=== PATIENT | female | born 1965 | race Caucasian/White ===

== ENCOUNTER 2023-01-16 06:35 | Outpatient (REF) | payer OTHER, SELFPAY ==
[2023-01-16 06:42] LABS: MANUAL DIFF FLAG NO
[2023-01-16 07:05] LABS: Basophils Absolute Auto 0.1 X10*3/uL (0.0-0.2); Basophils Percent Auto 0.8 % (0-2); Eosinophils Absolute Auto 0.4 X10*3/uL (0.0-0.4); Eosinophils Percent Auto 3.8 % (0-4); Hematocrit 38.9 % (37.0-47.0); Hemoglobin 13.2 g/dl (12.0-16.0); Imm Gran Abs Auto 0.04 X10*3/uL (0.00-0.03); Imm Gran Pct Auto 0.4 % (0.0-0.4); Lymphocytes Absolute Auto 3.1 X10*3/uL (1.2-4.9); Lymphocytes Percent Auto 30.5 % (20-40); Mean Corpuscular HGB Conc 33.9 g/dl (31.0-35.0); Mean Corpuscular Hemoglobin 31.1 pg (27.0-33.0); Mean Corpuscular Volume 91.7 fL (80.0-98.0); Monocytes Absolute Auto 0.6 X10*3/uL (0.1-1.2); Monocytes Percent Auto 5.7 % (2-11); Neutrophils Percent Auto 58.8 % (45-73); Platelet Count 500 X10*3/uL (160-400); Red Blood Count 4.24 X10*6/uL (4.20-5.50); Red Cell Distribution Width 13.8 % (11.0-16.0); White Blood Count 10.1 X10*3/uL (4.8-10.8)
[2023-01-16 07:42] LABS: Alanine Aminotransferase 41 U/L (0-31); Alkaline Phosphatase 75 U/L (39-117); Anion Gap 14 (12-20); Aspartate Amino Transferase 28 U/L (5-31); Blood Urea Nitrogen 11 mg/dL (9-16); Calcium 9.6 mg/dL (8.4-10.2); Carbon Dioxide 23 mmol/L (22-29); Chloride 101 mmol/L (96-108); Estimated Glomerular Filt Rate > 60; Glucose Random 149 mg/dL (60-115); Potassium 3.9 mmol/L (3.3-5.1); Sodium 134 mmol/L (135-145); Total Protein 7.2 g/dL (6.5-8.0)
[2023-01-16 08:00] LABS: Bilirubin Total 0.4 mg/dL (0.0-1.0)
== END 2023-01-16 06:36 | disposition home or self-care (01) ==
LOC: HO.MMNH1L 06:35
PROVIDERS: Visit Provider Family Medicine
DX: Z02.2 Encounter for examination for admission to residential institution (principal); E11.9 Type 2 diabetes mellitus without complications
CPT/HCPCS: 36415; 80053; 85025

== ENCOUNTER 2023-01-23 07:25 | Outpatient (REF) | payer OTHER, SELFPAY ==
[2023-01-23 06:08] LABS: MANUAL DIFF FLAG NO
[2023-01-23 06:58] LABS: Basophils Absolute Auto 0.1 X10*3/uL (0.0-0.2); Basophils Percent Auto 0.6 % (0-2); Eosinophils Absolute Auto 0.4 X10*3/uL (0.0-0.4); Eosinophils Percent Auto 3.1 % (0-4); Hematocrit 41.2 % (37.0-47.0); Imm Gran Abs Auto 0.03 X10*3/uL (0.00-0.03); Imm Gran Pct Auto 0.3 % (0.0-0.4); Lymphocytes Absolute Auto 3.9 X10*3/uL (1.2-4.9); Lymphocytes Percent Auto 34.3 % (20-40); Mean Corpuscular Hemoglobin 31.2 pg (27.0-33.0); Mean Corpuscular Volume 91.8 fL (80.0-98.0); Mean Platelet Volume 8.9 fL (9.4-12.3); Monocytes Absolute Auto 0.6 X10*3/uL (0.1-1.2); Monocytes Percent Auto 4.8 % (2-11); Neutrophils Absolute Auto 6.5 x10*3/uL (2.0-8.3); Neutrophils Percent Auto 56.9 % (45-73); Platelet Count 560 X10*3/uL (160-400); Red Blood Count 4.49 X10*6/uL (4.20-5.50); Red Cell Distribution Width 13.2 % (11.0-16.0); White Blood Count 11.4 X10*3/uL (4.8-10.8)
[2023-01-23 07:25] LABS: Anion Gap 16 (12-20); Blood Urea Nitrogen 9 mg/dL (9-16); Calcium 10.1 mg/dL (8.4-10.2); Carbon Dioxide 25 mmol/L (22-29); Chloride 98 mmol/L (96-108); Estimated Glomerular Filt Rate > 60; Glucose Random 156 mg/dL (60-115); Potassium 4.2 mmol/L (3.3-5.1); Sodium 135 mmol/L (135-145)
== END 2023-01-23 07:26 | disposition home or self-care (01) ==
LOC: HO.MMNH1L 07:25
PROVIDERS: Visit Provider Family Medicine
DX: Z02.2 Encounter for examination for admission to residential institution (principal); E11.9 Type 2 diabetes mellitus without complications; R26.81 Unsteadiness on feet
CPT/HCPCS: 36415; 80048; 85025

== ENCOUNTER 2023-01-30 07:17 | Outpatient (REF) | payer OTHER, SELFPAY ==
[2023-01-30 06:04] LABS: MANUAL DIFF FLAG NO
[2023-01-30 06:25] LABS: Basophils Absolute Auto 0.1 X10*3/uL (0.0-0.2); Basophils Percent Auto 0.6 % (0-2); Eosinophils Absolute Auto 0.4 X10*3/uL (0.0-0.4); Eosinophils Percent Auto 4.3 % (0-4); Hematocrit 36.9 % (37.0-47.0); Hemoglobin 12.4 g/dl (12.0-16.0); Imm Gran Abs Auto 0.04 X10*3/uL (0.00-0.03); Imm Gran Pct Auto 0.4 % (0.0-0.4); Lymphocytes Absolute Auto 2.5 X10*3/uL (1.2-4.9); Lymphocytes Percent Auto 27.2 % (20-40); Mean Corpuscular HGB Conc 33.6 g/dl (31.0-35.0); Mean Corpuscular Hemoglobin 30.8 pg (27.0-33.0); Mean Corpuscular Volume 91.6 fL (80.0-98.0); Monocytes Absolute Auto 0.6 X10*3/uL (0.1-1.2); Monocytes Percent Auto 6.8 % (2-11); Neutrophils Absolute Auto 5.6 x10*3/uL (2.0-8.3); Neutrophils Percent Auto 60.7 % (45-73); Platelet Count 479 X10*3/uL (160-400); Red Blood Count 4.03 X10*6/uL (4.20-5.50); Red Cell Distribution Width 12.9 % (11.0-16.0); White Blood Count 9.3 X10*3/uL (4.8-10.8)
[2023-01-30 07:04] LABS: Anion Gap 16 (12-20); Blood Urea Nitrogen 7 mg/dL (9-16); Calcium 9.5 mg/dL (8.4-10.2); Carbon Dioxide 23 mmol/L (22-29); Chloride 103 mmol/L (96-108); Estimated Glomerular Filt Rate > 60; Glucose Random 133 mg/dL (60-115); Sodium 138 mmol/L (135-145)
== END 2023-01-30 07:18 | disposition home or self-care (01) ==
LOC: HO.MMNH1L 07:17
PROVIDERS: Visit Provider Family Medicine
DX: Z02.2 Encounter for examination for admission to residential institution (principal); E11.9 Type 2 diabetes mellitus without complications
CPT/HCPCS: 36415; 80048; 85025

== ENCOUNTER 2023-02-06 06:28 | Outpatient (REF) | payer OTHER, SELFPAY ==
[2023-02-06 06:03] LABS: MANUAL DIFF FLAG NO
[2023-02-06 06:54] LABS: Basophils Absolute Auto 0.1 X10*3/uL (0.0-0.2); Basophils Percent Auto 0.5 % (0-2); Eosinophils Absolute Auto 0.3 X10*3/uL (0.0-0.4); Eosinophils Percent Auto 2.5 % (0-4); Hematocrit 36.4 % (37.0-47.0); Hemoglobin 12.5 g/dl (12.0-16.0); Imm Gran Abs Auto 0.06 X10*3/uL (0.00-0.03); Imm Gran Pct Auto 0.5 % (0.0-0.4); Lymphocytes Absolute Auto 3.8 X10*3/uL (1.2-4.9); Lymphocytes Percent Auto 32.5 % (20-40); Mean Corpuscular HGB Conc 34.3 g/dl (31.0-35.0); Mean Corpuscular Hemoglobin 30.7 pg (27.0-33.0); Mean Corpuscular Volume 89.4 fL (80.0-98.0); Mean Platelet Volume 8.9 fL (9.4-12.3); Monocytes Absolute Auto 0.6 X10*3/uL (0.1-1.2); Monocytes Percent Auto 5.3 % (2-11); Neutrophils Percent Auto 58.7 % (45-73); Platelet Count 428 X10*3/uL (160-400); Red Blood Count 4.07 X10*6/uL (4.20-5.50); Red Cell Distribution Width 12.6 % (11.0-16.0); White Blood Count 11.8 X10*3/uL (4.8-10.8)
[2023-02-06 07:10] LABS: Anion Gap 16 (12-20); Blood Urea Nitrogen 5 mg/dL (9-16); Calcium 9.4 mg/dL (8.4-10.2); Carbon Dioxide 21 mmol/L (22-29); Chloride 99 mmol/L (96-108); Estimated Glomerular Filt Rate > 60; Glucose Random 116 mg/dL (60-115); Potassium 3.3 mmol/L (3.3-5.1); Sodium 133 mmol/L (135-145)
== END 2023-02-06 06:29 | disposition home or self-care (01) ==
LOC: HO.MMNH1L 06:28
PROVIDERS: Visit Provider Family Medicine
DX: Z00.00 Encounter for general adult medical examination without abnormal findings (principal); E11.9 Type 2 diabetes mellitus without complications; R26.81 Unsteadiness on feet
CPT/HCPCS: 36415; 80048; 85025

== ENCOUNTER 2023-02-09 23:30 | Emergency (ER) | payer OTHER, SELFPAY ==
--- NOTE | ~2023-02-09 | US_ITS ---
EXAMINATION: US VENOUS ULTRASOUND WITH DOPPLER LOWER EXTREMITY, BILATERAL CLINICAL INFORMATION: Pain COMPARISON: None available. TECHNIQUE: Ultrasound of the deep veins is performed from the hip to the calf with compression sonography and color and pulse Doppler assessment. Spectral analysis with color-flow imaging is performed. FINDINGS: RIGHT: There is normal venous compression and respiratory variation and augmented flow. The visualized common femoral vein, superficial femoral vein, profunda femoral vein, popliteal vein, and the trifurcation region shows no evidence of deep venous thrombosis. There is no significant popliteal fossa cyst. LEFT: There is normal venous compression and respiratory variation and augmented flow. The visualized common femoral vein, superficial femoral vein, profunda femoral vein, popliteal vein, and the trifurcation region shows no evidence of deep venous thrombosis. There is no significant popliteal fossa cyst. If the patient's symptoms persist, followup ultrasound in 5 days 7 days might be of value to exclude proximal propagation from a non-visualized calf vein. US/US venous duplex LE BI IMPRESSION: No DVT demonstrated in the bilateral lower extremities
--- NOTE | ~2023-02-09 | CT_ITS ---
EXAMINATION: CT HEAD WITHOUT CONTRAST CLINICAL INFORMATION: Leg numbness COMPARISON: None available. TECHNIQUE: Contiguous axial imaging was performed from the skull base to vertex without intravenous administration of contrast. This CT examination was performed using dose optimization techniques as appropriate, variously including the following: *Automated exposure control *Adjustment of mA and/or kV according to patient size (this includes techniques or standardized protocols for targeted exams where dose is matched to indication/reason for exam; i.e. extremities or head) *Use of iterative reconstruction technique DLP: 704 mGy-cm FINDINGS: There is no evidence of acute intracranial hemorrhage or territorial infarction. No abnormal mass effect or midline shift is seen. Hernandez to white matter differentiation is well preserved. No extra-axial fluid collections are identified. No hydrocephalus. No significant volume loss. Patchy periventricular and deep white matter hypoattenuation is consistent with mild small vessel ischemic changes. Dilated perivascular space, inferior right basal ganglia. Subcentimeter extra-axial partially calcified structure along the right frontal lobe, most compatible with a meningioma. No acute osseous or soft tissue abnormality. The mastoid air cells and visualized portions of the paranasal sinuses are well aerated. CT/CT head/brain wo IV con IMPRESSION: No acute intracranial pathology.
[2023-02-10 00:04] VITALS: BP 117/65; PULSE 82; TEMP 36.6; O2SAT 97
[2023-02-10 00:08] VITALS: BP 117/65; BP 117/86; PULSE 106; RESP 19; O2SAT 95; BMI 35.2
--- NOTE | 2023-02-10 00:34 | ED.GENADULT ---
HPI - General Adult General Chief complaint: General Medical Stated complaint: Shaky legs Time Seen by Provider: 02/09/23 23:51 Source: patient Mode of arrival: EMS Limitations: other (poor historian ) History of Present Illness HPI narrative: 57 yo female currently in rehab she tells me for vertigo - she states she has a PMH of vertigo, anxiety, depression, HTN, DM, GERD - she was taken out of rehab as it was her mom's and when she got back to facility both legs jumping around . Staff called EMS and state they are concerned she either used drugs or alcohol as she has a hx of this. The patient denies ingestion or trauma. She states shes' been sober 1.5 months. No change in medications. She walked a lot today. She took all of her medications. Patient is hyperverbal. She has no hx of restless leg syndrome. MD complaint: moving legs Onset (ago): hour(s) (4) Location: left, right and lower extremity Radiation: non-radiation Severity: moderate Quality: sharp Pain Consistency: intermittent Relieving factors: none Exacerbating factors: none Associated symptoms: denies other symptoms Treatments prior to arrival: none Related Data Allergies Allergy/AdvReac Type Severity Reaction Status Date / Time bee pollen Allergy Anaphylaxis Verified 02/10/23 00:18 Review of Systems Review of Systems: Constitutional : No Fever, No Chills ENT/Mouth : No Ear Pain, No Hoarseness, No sore throat Eyes: No Eye Pain, No Swelling, No Redness, No Foreign Body Cardiovascular : No Chest Pain, No SOB Respiratory : No Cough, No Dyspnea Gastrointestinal : No Nausea, No Vomiting, No Diarrhea, No abdominal Pain Genitourinary : No Dysuria, No Hematuria Musculoskeletal : positive joint pain,pos Myalgias, No Joint Swelling Skin : No Skin lacerations, No rash Neuro : No Weakness, No Numbness, No Loss of Consciousness, No Dizziness, No Headache Psych : No Anxiety/Panic, No Depression Heme/Lymph: no easy bruising, no Lymphadenopathy Endocrine : No Polyuria, No Polydipsia All other systems reviewed and are negative [facility] Past Medical History Source: old records reviewed Medical History Vertigo Diabetes HTN (hypertension) GERD (gastroesophageal reflux disease) Social History Social History Smoked in Last 30 Days: No Use of substances other than those prescribed or required for medical reasons: No Advance Directives: No Advance Directives Information Provided: Yes Patient : No Physical Exam ED Vital Signs: Vital Signs - 24 hr 02/10/23 00:04 02/10/23 00:08 Temperature 97.8 F Pulse Rate 82 106 H Respiratory Rate 19 Blood Pressure 117/65 117/65 Pulse Oximetry 97 95 Oxygen Delivery Method Room Air Room Air BMI result Body Mass Index 35.2 Appearance: Alert. Oriented X3. No acute distress. Hyperverbal Eyes: Pupils equal, round and reactive to light. ENT: Pharynx normal. Neck: Normal inspection. Neck supple. CVS: Normal heart rate and rhythm. Pulses normal. Respiratory: No respiratory distress. Breath sounds normal. Abdomen: Soft and nontender. Skin: Skin warm and dry. Normal skin color. Normal skin turgor. Extremities: 1+ lower extremity edema. No calf ttp intermittent legs twitch and turn inside occurs every minute or so simultaneously Neuro: Oriented X 3. No motor deficit. No sensory deficit. SILT intact, no clonus Course Course Course Narrative: shaking of the legs has stopped since one dose of PO ativan Medications Administered Discontinued Medications Generic Name Dose Route Start Last Admin Trade Name Arsenq PRN Reason Stop Dose Admin Lorazepam 1 mg 02/10/23 02:17 02/10/23 02:41 Lorazepam 1 Mg Tablet PO 02/10/23 02:18 1 mg ONCE ONE Administration Medical Decision Making Medical Decision Making [facility] Narrative: 57 yo female currently in rehab she tells me for vertigo - she states she has a PMH of vertigo, anxiety, depression, HTN, DM, GERD her with abnormal movements of both LE - intermittent, NV Intact, no clonus seems atypical for seizures at this time basic labs, tox screen and US for DVT given reported new swelling. Will also request records from [facility] Differential Diagnosis Differential Diagnoses: The differential diagnosis associated with the presentation includes RLS, ingestion, lyte abnormality, DVT Admission/Observation Consideration of admission/observation: Escalation of care including admission/observation considered work up negative and symptoms of legs stopped after PO ativan Lab Data [facility] Lab Attestation statement: I reviewed the patient's lab results. 02/10/23 00:44 02/10/23 00:44 Labs: Lab Results 02/10/23 02/10/23 02/10/23 Range/Units 00:44 01:07 01:58 WBC 13.3 H (4.8-10.8) X10*3/uL RBC 4.01 L (4.20-5.50) X10*6/uL Hgb 12.3 (12.0-16.0) g/dl Hct 35.3 L (37.0-47.0) % MCV 88.0 (80.0-98.0) fL MCH 30.7 (27.0-33.0) pg MCHC 34.8 (31.0-35.0) g/dl RDW 12.8 (11.0-16.0) % Plt Count 442 H (160-400) X10*3/uL MPV 8.2 L (9.4-12.3) fL Immature Gran % (Auto) 0.3 (0.0-0.4) % Neut % (Auto) 60.4 (45-73) % Lymph % (Auto) 30.3 (20-40) % Alpine % (Auto) 5.5 (2-11) % Eos % (Auto) 3.0 (0-4) % Baso % (Auto) 0.5 (0-2) % Lymph # (Auto) 4.0 (1.2-4.9) X10*3/uL Alpine # (Auto) 0.7 (0.1-1.2) X10*3/uL Eos # (Auto) 0.4 (0.0-0.4) X10*3/uL Baso # (Auto) 0.1 (0.0-0.2) X10*3/uL Abs Immat Gran (auto) 0.04 H (0.00-0.03) X10*3/uL Absolute Neuts (auto) 8.0 (2.0-8.3) x10*3/uL Absolute Nucleated RBC 0.000 (0.0-0.012) X10*3/uL Nucleated RBC % (auto) 0.0 (0.0-0.2) /100WBC PT 10.9 L (11.1-13.3) SEC INR 0.9 (0.9-1.1) Sodium 137 (135-145) mmol/L Potassium 3.5 (3.3-5.1) mmol/L Chloride 104 (96-108) mmol/L Carbon Dioxide 24 (22-29) mmol/L Anion Gap 13 (12-20) BUN 6 L (9-16) mg/dL Creatinine 0.68 (0.5-1.4) mg/dL Estim Creat Clear Calc 89.9 Estimated GFR > 60 Random Glucose 105 (60-115) mg/dL Calcium 9.4 (8.4-10.2) mg/dL Magnesium 1.9 (1.6-2.6) mg/dL Total Bilirubin 0.3 (0.0-1.0) mg/dL Direct Bilirubin 0.2 (0.0-0.5) mg/dL AST 28 (5-31) U/L ALT 34 H (0-31) U/L Alkaline Phosphatase 79 (39-117) U/L Total Creatine Kinase 170 H (26-140) U/L B-Natriuretic Peptide 15 (<100) pg/mL Total Protein 6.8 (6.5-8.0) g/dL Albumin 3.8 (3.5-5.0) g/dL TSH 2.22 (0.32-4.0) uIU/mL Urine Color Yellow Urine Appearance Clear Urine pH 5.5 (5.0-9.0) Ur Specific Vernon 1.010 (1.005-1.025) Urine Protein Negative (Neg-Trace) mg/dL Urine Glucose (UA) Negative (Negative) mg/dL Urine Ketones Negative (Negative) mg/dL Urine Blood Negative (Negative) Urine Nitrite Negative (Negative) Ur Leukocyte Esterase Trace H (Negative) Urine RBC 0-2 (0-2) /HPF Urine WBC 0-5 (0-5) /HPF Ur Squamous Epith Cells 3-5 (0-2) /HPF Urine Bacteria None Seen (None Seen) Hyaline Casts 0-2 (0-2) /LPF Urine Opiates Screen Not Detected (Not Detect) Urine Fentanyl Screen Not Detected (Not Detect) Ur Barbiturates Screen Not Detected (Not Detect) Ur Phencyclidine Scrn Not Detected (Not Detect) Ur Amphetamines Screen Not Detected (Not Detect) U Benzodiazepines Scrn Not Detected (Not Detect) Urine Cocaine Screen Not Detected (Not Detect) U Marijuana (THC) Screen Not Detected (Not Detect) Ethyl Alcohol < 10 mg/dL Influenza Type A (PCR) NEGATIVE (Negative) Influenza Type B (PCR) NEGATIVE (Negative) RSV RNA Qual (PCR) NEGATIVE (Negative) SARS-CoV-2 RNA (RT-PCR) NEGATIVE (Negative) Independent Interpretation I performed an independent interpretation of an: Ultrasound (no DVT) and CT Scan (normal ) Radiology Impression Discussion of test interpretation with radiology: I have reviewed the radiologist's reading. Independent Historian Clinical information obtained from an independent historian. History obtained from or confirmed by: EMS External Record Review External record reviewed: Outpatient record Discharge Plan Discharge Clinical Impression: Abnormal leg movement Patient Disposition: Home, Self-Care Instructions: Leg Pain (ED) Additional Instructions: labs, urine, drug screen, thyroid testing, head CT, DVT study, COVID/flu/PCR all negative, negative alcohol level all movements stopped after oral dose of ativan please follow up with her doctor or neurologist as needed. could be restless leg would be atypical for seizures
--- OUTSIDE RECORDS SUMMARY | 2023-02-10 00:37 | XMS_ITS | Continuity of Care Document ---
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 Refills 3, Maintenance, anxiety, 10/07/15 10:32:24, Print Requisition Start Date: 10/07/15 Status: Ordered Atarax Tablet = 20 mg, By Mouth, 4 times a day, PRN as needed for anxiety, Last filled 09/24/2019, 0 Refills, Maintenance, 10/28/19 11:47:00 EDT, Tablet Start Date: 10/28/19 Stop Date: 11/27/19 Status: Ordered docusate sodium 100 mg oral capsule 100 mg, 1, capsule, By Mouth, 2 times a day, Please take until first bowel movement, then can take only if you have constipation., # 60 capsule, Refills 0, Tot. Refills 0, Maintenance, 05/10/17 14:06:33, Print Requisition Start Date: 05/10/17 Status: Ordered glipiZIDE 10 mg oral tablet 1 tablet = 10 mg, By Mouth, 2 times a day, Last filled 06/27/2019, # 180 tablet, 0 Refills, Maintenance, 10/28/19 11:50:00 EDT, Tablet Start Date: 10/28/19 Stop Date: 01/26/20 Status: Ordered Januvia 100 mg oral tablet 1 tablet = 100 mg, By Mouth, Daily, Last filled 06/27/2019, # 90 tablet, 0 Refills, Maintenance, 10/28/19 11:49:00 EDT, Tablet Start Date: 10/28/19 Stop Date: 01/26/20 Status: Ordered Melatonin 5 mg oral tablet 1 tablet = 5 mg, By Mouth, Daily at bedtime, PRN for insomnia, # 30 tablet, 3 Refills, Maintenance,10/07/15 10:34:27, Tablet Start Date: 10/07/15 Status: Ordered metFORMIN 500 mg oral tablet, extended release 2 tablet = 1,000 mg, By Mouth, 2 times a day, Last filled 07/23/2019, # 90 tablet, 0 Refills, Maintenance, 10/28/19 11:48:00 EDT, ER Tablet Start Date: 10/28/19 Stop Date: 01/26/20 Status: Ordered ondansetron 4 mg oral tablet See Instructions, PRN as needed for nausea/vomiting, 1-2 tablet By Mouth Every 8 hours, # 10 tablet, 0 Refills, Maintenance, 08/18/17 22:26:46 EDT, Tablet Start Date: 08/18/17 Status: Ordered pravastatin 40 mg oral tablet 1 tablet = 40 mg, By Mouth, Daily, Last filled June 27, 2019, # 90 tablet, 0 Refills, Maintenance, 10/28/19 11:49:00 EDT, Tablet Start Date: 10/28/19 Stop Date: 01/26/20 Status: Ordered ProAir HFA 90 mcg/inh inhalation aerosol with adapter 2 puffs, Inhalation, 4 times a day, PRN for wheezing, # 8.5 Gm, 0 Refills, Maintenance, Aerosol Start Date: 11/08/12 Status: Ordered Provera 10 mg oral tablet 10 mg, 1, tablet, By Mouth, Daily, # 10 tablet, Refills 0, Tot. Refills 0, Maintenance, 09/09/15 16:30:06, Route to Pharmacy Electronically, [id number], [id number] Start Date: 09/09/15 Stop Date: 09/19/15 Status: Ordered Reglan 10 mg oral tablet 1 tablet = 10 mg, By Mouth, 4 times a day, # 120 tablet, 0 Refills, Maintenance, 05/03/17 10:54:02,Tablet Start Date: 05/03/17 Status: Ordered Problem List Condition Effective Dates Status Health Status Inform ant Anxiety(Confirmed) Active Anxiety disorder(Confirmed) Active Chronic chest pain(Confirmed) Active Panic disorder without agora phobia with severe panic attacks(Confirmed) Active 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(Confirmed) Active Vital Signs Most recent to oldest [Reference Range]: 1 Height 155 cm (10/28/19 11:07 AM) Weight 84.5 kg (10/28/19 11:07 AM) Oxygen Saturation [94-100 %] 98 % (10/28/19 11:07 AM) Pulse Rate [55-90 bpm] 110 bpm *H* (10/28/19 11:07 AM) Blood Pressure [90-138/55-84 mm Hg] 110/ 73mm Hg (10/28/19 11:07 AM) Respiratory Rate [16-30 br/min] 16 br/mi n (10/28/19 11:07 AM) Temperature [96.8-100.4 DegF] 98.1 DegF (10/28/19 11:07 AM) Mode of Delivery (Oxygen) Room air (10/28/19 11:07 AM) Blood pressure sites Arm, right (10/28/19 11:07 AM) Temperature Route Oral (10/28/19 11:07 AM) Dry Weight 84.5 kg (10/28/19 11:07 AM) Weight Obtained Via Patient/family state d (10/28/19 11:07 AM) Dry Weight Obtained Via Patient/family s tated (10/28/19 11:07 AM) Social History Social History Type Response Smoking Status Current every day jinny marmolejo; Type: Cigarettes entered on: 05/03/17 Sex
--- OUTSIDE RECORDS SUMMARY | 2023-02-10 00:37 | XMS_ITS | Continuity of Care Document ---
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 painful lymph nodes. Skin:??No rash or itching. Endocrine:??No reports of sweating. No cold or heat intolerance. No polyuria or polydipsia. Psychiatric:??No depression or anxiety. Objective Vital Signs?? Temperature: 97.7 DegF (01/03/23:24:00) Temperature Route: Oral (01/03/23:24:00) Pulse Rate:??103 bpm??High (01/03/23:26:00) Respiratory Rate: 19 br/min (01/03/23::) Systolic Blood Pressure:??162 mm Hg??High (01/03/23::) Diastolic Blood Pressure: 81 mm Hg (01/03/23:26:00) Blood pressure sites: Arm, left (01/03/23 23:26:00) Mean Arterial Pressure: 125 mm Hg (01/03/23:24:00) Pulse Pressure: 81 mm Hg (01/03/23 23:26:00) Oxygen Saturation: 97 % (01/03/23:26:00) Mode of Delivery (Oxygen): Room air (01/03/23 23:26:00) Early Warning Score: 3 (01/03/23 23:35:25) ? Intake/Output? No Data Available ?? NIH Stroke Scale Level of Consciousness for Stroke Scale: Alert (01/03/23 21:30:00) Response Month/Age: Answers both questions correctly (01/03/23:30:00) Response Open/Close Eyes: Performs both tasks correctly (01/03/23:30:00) Best Gaze: Normal (01/03/23:30:00) Visual: No visual loss (01/03/23:30:00) Facial Palsy: Normal symmetrical movements (01/03/23 21:30:00) Motor Function Left Arm: No drift (01/03/23:30:00) Motor Function Right Arm: No drift (01/03/23:) Motor Function Left Leg: No drift (01/03/23:) Motor Function Right Leg: No drift (01/03/23:) Limb Ataxia: Absent (01/03/23:) Sensory: Normal; no sensory loss (01/03/2330:) Best Language: No aphasia (01/03/23:) Dysarthria NIH Stroke Scale: Normal (01/03/23) Extinction and Inattention: No abnormality (01/03/23:) NIH Stroke Scale Score: 0 (01/03/23:) ? Physical Exam Constitutional: Alert, in no distress. Mental Status: Oriented to person, place and time. Head: Normocephalic. Eyes: Pupils are equal, round and reactive to light. Extraocular muscles intact. Ear, Nose and Throat: Oropharynx clear, mucous membranes moist. Ears and nose without masses, lesions or deformities. Trachea midline. Neck: Supple, Full range of motion. Respiratory: Clear to auscultation. No wheezing, rales or rhonchi. Cardiovascular: S1 S2 regular. No murmurs, rubs or gallops. Gastrointestinal: Abdomen soft, non-tender, non-distended. Normal bowel sounds. No pulsatile mass.?? Genitourinary: No costovertebral angle tenderness. Neurologic: Cranial nerves II-XII grossly intact. No focal neurological deficits. Flexor plantar response. Moves all extremities spontaneously. Sensation intact bilaterally. Skin: No rashes or lesions. No petechiae or purpura.?? Musculoskeletal: No cyanosis or clubbing. No gross deformities. Normal range of motion. Heme/Lymphatics/Immun: Palpation of neck reveals no swelling or tenderness of neck nodes.?? Psychiatric: Normal mood and affect Assessment/Plan Assessment:??The patient is a 57-year-old female with history of anxiety, panic disorder, obesity, DM, and possible ETOH abuse who presented to the ED with complaints of nausea, vomiting, and dizziness. The patient states that she was working with a therapist at home when she began to develop sudden onset dizziness at approximately 2 PM this afternoon. Patient states she felt that her legs are weak at baseline. Patient states she typically ambulates with a walker and has not been able to stand since this afternoon due to the dizziness and feeling of being off balance. Given reports of sudden onset dizziness, the patient was activated as an acute stroke alert. When I am seeing her, the patien t reports dizziness with position changes. She denies headache, speech difficulties, unilateral weakness. chest pain, shortness of breath. ?? In the ED, the patient is afebrile with elevated HR to 115 and SBP up to 177. EKG shows sinus tachycardia of 113, with no acute ischemia. CT head is nonacute. 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 Laboratory data includes WBC 12.8, glucose 136, HS troponin 14. The patient was seen by neurology who recommends admission for CVA rule out. ?? Stroke-like symptom (R29.90):?? Weakness (R53.1):?? Gait instability (R26.81):?? Hyperlipidemia (E78.5):?? CVA (I63.9): 57-year-old female with history of anxiety, panic disorder, obesity, DM, and possible ETOH abuse who presented to the ED with complaints of nausea, vomiting, and dizziness.?? In the ED, the patient is afebrile with elevated HR to 115 and SBP up to 177. EKG shows sinus tachycardia of 113, with no acute ischemia. CT head is nonacute. 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 Laboratory data includes WBC 12.8, glucose 136, HS troponin 14. The patient was seen by neurology who recommends admission for CVA rule out. -Neurology recommendations appreciated.?? -??Q 4 hour neuro checks. -Telemetry. - MRI of brain w/o??to assess for infarct - ASA 81mg daily - Check thiamine, folate, and B12 - IV thiamine after drawing labs - Check LDL. recommend goal LDL <70 with high dose statin - Check A1C - NPO until passes swallow eval - Permissive hypertension. -Continue atorvastatin. - Provide stroke education - Outpatient goals LDL between 40 &70, A1C <7%, and BP <120/80? Diabetes (E11.9):?? -Hold Trulicity. -Monitor glucose POC before meals and HS. -Cover meals with NAHUM. -Hypoglycemic ER measures. ?? GERD (gastroesophageal reflux disease) (K21.9):?? -Substitute Pantoprazole for omeprazole. ?? Diet:?? Cardiac diabetic. ?? VTE Prophylaxis:?? Heparin SC. ?? Code Status:??Full code, confirmed with patient, ?? Discharge Planning:?? -OMN- pending MRI. ? Histories Allergies Allergies ?(Active and Proposed Allergies Only) Bee Stings? (Severity: Unknown severity, Onset: Unknown) ? Past Medical History/Problem List Active Problems??(6) Anxiety Anxiety disorder Chronic chest pain Obese class I Panic disorder without agoraphobia with severe panic attacks 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 ? Past Surgical History Laparoscopic cholecystectomy: 05/10/17 ? Social History Alcohol Details:??Use: Current. ??Frequency: 1-2 times per week. Substance Abuse Details:??Use: Never. Tobacco Details:??Current every day smoker, Type: Cigarettes. Details:??Current every day smoker ? Psychosocial History ? Family History Sister: Panic disorder without agoraphobia ? Medications Home Medications Albuterol (ProAir HFA 90 mcg/inh inhalation aerosol with adapter)?2?puff(s)?Inhalation?4 times a day?as needed?for wheezing Atorvastatin (atorvastatin 40 mg oral tablet)?1?tab(s)?40?Milligram?By Mouth?Daily Docusate (docusate sodium 100 mg oral capsule)?100?Milligram?1?capsule?By Mouth?2times a day?Please take until first bowel movement, then can take only if you have constipation. dulaglutide (Trulicity Pen 0.75 mg/0.5 mL subcutaneous solution)?0.5?Milliliter?0.75?Milligram?Subcutaneous Injection?Every week Folic Acid (folic acid 1 mg oral tablet)?TAKE 1 TABLET BY MOUTH DAILY Gabapentin (gabapentin 100 mg oral capsule)?200?Milligram?2?capsule?By Mouth?3 times a day MedroxyPROGESTERone (Provera 10 mg oral tablet)?10?Milligram?1?tablet?By Mouth?Daily?for 10?Days Melatonin (Melatonin 5 mg oral tablet)?1?tab(s)?5?Milligram?By Mouth?Daily at bedtime?as needed?for insomnia Omeprazole (omeprazole 40 mg oral enteric coated capsule)?1?capsule?40?Milligram?By Mouth?Daily Ondansetron (ondansetron 4 mg oral tablet)?See Instructions?as needed?as needed for nausea/vomiting?1-2 tablet By Mouth Every 8 hours ? Inpatient Medications Medications (12) Active SCHEDULED: (8) Aspirin 81 mg EC Tablet (Aspirin Tablet) ??81 mg, By Mouth, Daily Atorvastatin 40 mg Tablet (atorvastatin 40 mg oral tablet) ??40 mg, By Mouth, Daily Docusate Sodium 100 mg Capsule (docusate sodium 100 mg oral capsule) ??100 mg 1 capsule, By Mouth, 2 times a day Folic Acid 1 mg Tablet (folic acid 1 mg oral tablet) ??1 mg, By Mouth, Daily Gabapentin 100 mg Capsule (gabapentin 100 mg oral capsule) ??200 mg, By Mouth, 3 times a day Insulin Lispro 100 units/mL Inj (3mL) (Insulin LISPRO Sliding Scale) ??2-10 units, Subcutaneous Injection, Every 6 hours NaCl 0.9% Flush 3ml (NaCL 0.9% Flush) ??3 mL, IV Push, Every 8 hours Pantoprazole 40 mg EC Tablet (pantoprazole 40 mg oral delayed release tablet) ??40 mg, By Mouth, Daily CONTINUOUS: (0) PRN: (4) Acetaminophen 325 mg Tablet (Acetaminophen Tablet) ??650 mg, By Mouth, Every 4 hours Albuterol 90mcg/Inhalation Inhaler HFA (Ventolin 90 mcg Inhaler) ??180 mcg 2 puffs, Inhalation, 4 times a day Melatonin 3 mg Tablet (melatonin 3 mg oral tablet) ??3 mg, By Mouth, Daily at bedtime NaCl 0.9% Flush 3ml (NaCL 0.9% Flush) ??3 mL, IV Push, Every 8 hours ? Results Recent Labs BLOOD COUNT & DIFF WBC 12.8 k/mm3 (High)?? 01/03/2023 21:55 RBC 4.19 m/mm3 (Low)?? 01/03/2023 21:55 Hgb 12.8 Gm/dL ()?? 01/03/2023 21:55 Hct 38.0 % ()?? 01/03/2023 21:55 MCV 90.7 femtoliters ()?? 01/03/2023 21:55 MCH 30.5 pg ()?? 01/03/2023 21:55 MCHC 33.7 g/dL ()?? 01/03/2023 21:55 Platelet Count 415 k/mm3 ()?? 01/03/2023 21:55 RDW-SD 47.0 femtoliters (High)?? 01/03/2023 21:55 MPV 8.8 femtoliters (Low)?? 01/03/2023 21:55 Nucleated RBC (Automated) 0.0 #/100 WBC'S ()?? 01/03/2023 21:55 Abs. NRBC 0.0 k/mm3 ()?? 01/03/2023 21:55 Abs. Neut 6.3 k/mm3 ()?? 01/03/2023 21:55 Abs. Lymph 5.2 k/mm3 (High)?? 01/03/2023 21:55 Abs. Ogle 1.0 k/mm3 (High)?? 01/03/2023 21:55 Abs. Eo 0.2 k/mm3 ()?? 01/03/2023 21:55 Abs. Baso 0.1 k/mm3 ()?? 01/03/2023 21:55 Neut % 49.1 % ()?? 01/03/2023 21:55 Lymph % 40.5 % ()?? 01/03/2023 21:55 Ogle % 7.7 % ()?? 01/03/2023 21:55 Eos % 1.6 % ()?? 01/03/2023 21:55 Baso % 0.7 % ()?? 01/03/2023 21:55 Platelet Estimate ADEQUATE ()?? 01/03/2023 21:55 Imm Gran 0.4 % ()?? 01/03/2023 21:55 Abs. Imm Gran 0.1 k/mm3 ()?? 01/03/2023 21:55 ?? CARDIAC High Sensitivity Troponin (HSTnT) 14 ng/L (High)?? 01/03/2023 21:55 ?? CHEM GENERAL Sodium 138 mmol/L ()?? 01/03/2023 21:55 Potassium 4.1 mmol/L ()?? 01/03/2023 21:55 Chloride 98 mmol/L ()?? 01/03/2023 21:55 Bicarbonate Level 25 mmol/L ()?? 01/03/2023 21:55 Anion Gap 15 ()?? 01/03/2023 21:55 Glucose Level 136 mg/dL (High)?? 01/03/2023 21:55 Glucose, POC 121 mg/dL (High)?? 01/03/2023 21:15 BUN 8 mg/dL ()?? 01/03/2023 21:55 Creatinine-Blood 0.6 mg/dL ()?? 01/03/2023 21:55 Estimated GFR Creatinine 103 ML/MIN/1.73 M2 ()?? 01/03/2023 21:55 Calcium 9.5 mg/dL ()?? 01/03/2023 21:55 Protein, Total 6.4 Gm/dL ()?? 01/03/2023 21:55 Albumin 4.3 Gm/dL ()?? 01/03/2023 21:55 AG Ratio 2.0 ()?? 01/03/2023 21:55 Alkaline Phosphatase 85 units/L ()?? 01/03/2023 21:55 AST (SGOT) 23 units/L ()?? 01/03/2023 21:55 ALT (SGPT) 39 units/L (High)?? 01/03/2023 21:55 Bilirubin, Total 0.3 mg/dL ()?? 01/03/2023 21:55 Vitamin B12 Level 754 pg/mL ()?? 01/03/2023 21:55 Folic Acid Level 29.7 ng/mL ()?? 01/03/2023 21:55 ?? COAG INR 1.0 ()?? 01/03/2023 21:55 Protime (PT) 10.3 seconds ()?? 01/03/2023 21:55 APTT 25.4 seconds ()?? 01/03/2023 21:55 ?? URINE OTHER Est Creatinine Clearance 78.15 mL/min ()?? 01/03/2023 22:42 ? EKG study * Event Display: ECG 12-Lead Authored Date: Please click on pdf link to open report * Event Display: ECG 12-Lead Authored Date: Ventricular Rate: 113 BPM Atrial Rate: 113 BPM P-R Interval: 176 ms QRS Duration: 76 ms Q-T Interval: 324 ms QTC Calculation(Bazett): 444 ms P Brookesmith: 27 degrees R Brookesmith: -18 degrees T Brookesmith: 19 degrees Sinus tachycardia Minimal voltage criteria for LVH, may be normal variant ( R in aVL ) Inferior infarct (cited on or before 28-OCT-2019) Anterolateral infarct (cited on or before 28-OCT-2019) Abnormal ECG When compared with ECG of 28-OCT-2019 11:14, Questionable change in initial forces of Lateral leads ST no longer elevated in Inferior leads Confirmed by CHATA WILLINGHAM MD ([id number]) on 01/04/2023 9:30:10 AM [place]: CHATA WILLINGHAM MD Heart * Event Display: Echocardiogram - Complete Authored Date: [id number] Transthoracic Echocardiography Report (TTE) Patient Demographics Patient Name DONNA HAMPTON Date of Study 01/09/2023 Corporate Gender Female Facility Race Ethnicity Date of 1965 Height: 61.02 inches Age 57 year(s) Weight: 171.96 pounds Accession Number [id number] BSA: 1.77 m2 Room Number [id number] BMI: 32.47 kg/m2 Referring Physician Sara Burris Interpreting Blaise Chambers MD Physician Underwriting Support Manager [facility] Fellow Dawson Faustin MD Indications Syncope. Clinical History Obesity. Diabetes Mellitus. ETOH Study Data Type of Study TTE procedure:Echo Complete-Doppler, Colorflow, M-Mode. Study Date01/09/2023 Start Time: 08:58 AM [place] [facility] [place] Study Status: Echo lab Patient Status: Routine Technical Quality: Technically difficult due to body habitus. Blood Pressure:138/77 mmHg EKG: Sinus tachycardia HR: 107 bpm 2D Measurements LV Diastolic Dimension: 4.76 cm LV Systolic Dimension: 2.9 cm LV Septum Diastolic: 1.11 cm LV PW Diastolic: 1.12 cm AO Root Dimension: 3.6 cm LA ESV (BP):44.52 ml LVOT Stroke Volume: 49.83 ml LA ESV Index: 25 ml/m2 Stroke Volume Index28.15 ml/m2 LVOT: 2.3 cm Cardiac Index:3.01 l/min/m2 Ascending Aorta:2.9 cm Doppler Measurements AV Peak Velocity: 119 cm/s AV Peak Gradient: 5.66 mmHg AV Mean Gradient: 3 mmHg AV VTI:16.5 cm LVOT Peak Velocity: 69.4 cm/s LVOT VTI12 cm AV Area (Continuity):3.02 cm2 Cardiac Anatomy Left Ventricle/Interventricular Septum The left ventricle is poorly visualized. The left ventricle is normal in size. Left ventricular wall thickness is mildly increased. Left ventricular systolic function is low normal. There are no regional wall motion abnormalities. LVEF is visually estimated at 50-55%. Unable to assess diastolic function due to E/A fusion. Left Atrium/Interatrial Septum The left atrium is normal in size. Aortic Valve The aortic valve is poorly visualized. There is no aortic stenosis or significant insufficiency. Mitral Valve The mitral valve is grossly normal. There is no mitral stenosis or regurgitation. Aorta The aortic root size is upper limit of normal. The proximal ascending thoracic aorta is normal in size. Right Ventricle The right ventricle is poorly visualized. The right ventricle is normal in size. Right ventricular systolic function appears preserved. Right Atrium The right atrium is poorly visualized. Pulmonic Valve The pulmonic valve is functionally normal. Tricuspid Valve The tricuspid valve is poorly visualized. There is no significant tricuspid regurgitation. Pumonary Artery The pulmonary artery is not well visualized. Unable to accurately estimate pulmonary artery systolic pressure. Venous Structures The inferior vena cava appears grossly normal. Pericardium/Extracardiac There is an epicardial fat pad present. There is no significant pericardial effusion. Summary The left ventricle is poorly visualized. The left ventricle is normal in size. Left ventricular wall thickness is mildly increased. Left ventricular systolic function is low normal. There are no regional wall motion abnormalities. LVEF is visually estimated at 50-55%. Unable to assess diastolic function due to E/A fusion. The right ventricle is poorly visualized. The right ventricle is normal in size. Right ventricular systolic function appears preserved. Comparison No prior study available for comparison. Signature * Event Display: Echocardiogram - Complete Authored Date: Cardiology * Event Display: Cardiac Rhythm Strips Authored Date: Hospital Progress note * Lucrecia Brooks RN: VERIFY, PERFORM, SIGN Event Display: Progress Note Hospital Authored Date: Patient: DONNA HAMPTON Age: 57 years Sex: Female : 1965 Associated Diagnoses: None Author: Lucrecia Brooks RN Findings Problem Related to Alteration in Neurological : Alteration in Neurological Function/new 01/11/2023 0:00 EST Alteration in Neuro status Related to Acute Stroke (CVA), Other: dizziness, weakness, CVA ruleout Goals & Outcomes, Neurological Lab studies/diagnostic tests within pt specific limits, Pt is safe with transfers & activities, Pt will be hemodynamically stable, Pt will be Neurologically stable, Pt will become pain free with appropriate intervention, Pt will maintain intact skin integrity,Pt will remain free from injury Interventions, Neurological Assess/monitor neurologic status, Assess/monitor VS per unit standards & prn, Call/Report variances in assessments to provider, Collaborate w/ provider to implement appropriate guidelines, Collaborate with Nutrition, Collaborate with provider re: medication regime, Document & Monitor O2 Sats; Administer O2 as ordered, Identify psychosocial issues related to diag nosis/illness, If no bowel movement in 3 days activate bowel regime, [place] alternate means of communication, Keep patient's head & body in good alignment, Maintain HOB at least 30 deg, Maintain normothermia, report temp >101.5 F, Maintain patient safety if unsteady gait, Maintain strict intake & output, Monitor Fluid & Electrolytes, Serum Osmolarity, Monitor for headaches, nausea, vomiting, Monitor speech fluency, aphasia, word finding difficulty, Physical assessment per unitstandards, Provide emotional support to Pt/caregiver, Teach & encourage deep breath & coughexercises, Teach and encourage use of Incentive spirometer, Teach pt/caregiver on plan of care, treatment, s/s & meds, Teach pt/caregiver on use of pain scale Goals/Interventions, Neurological Yes Neurological, Problem Start 01/05/2023 8:45 Reviewed plan with, Neurological Patient Patient Progression, Neurological Pt progressing according to plan . Nursing Data Neurological Data. : Neurological Data. 01/10/2023 21:00 EST Tongue Disposition Midline Neurological Symptoms Altered sensation or tingling, Weakness or loss of muscle strength Level of Consciousness Full Consciousness Orientated to person, place, time Person, Place, Time, Event Facial Symmetry Intact Characteristics of Speech Clear and normal Strength LUE 5-Active movement against gravity & full resistance Strength RUE 5-Active movement against gravity & full resistance Strength LLE 5-Active movement against gravity & full resistance Strength RLE 5-Active movement against gravity & full resistance Tone LUE Normal Tone RUE Normal Tone LLE Normal Tone RLE Normal Sensation LUE Intact, Diminished Sensation RUE Intact, Diminished Sensation LLE Intact, Diminished Sensation RLE Intact, Diminished Movement LUE Spontaneous, To command Movement RUE Spontaneous, To command Movement LLE Spontaneous, To command Movement RLE Spontaneous, To command Gait Steady Response Eye Opening Spontaneously Motor Response-Adult Obeys commands Verbal Response-Adult Oriented and converses [place] Coma Score 15 Neuro WNL except Eyes and Movements Conjugate gaze: Move in same direction at same speed Headache None Swallow - Neuro Normal . Evaluation A/O X3. Speech clear, able to verbalize needs & follow commands. Face symmetrical, tongue midline. PERRL. MEJÍA 5/5. 1A with FWW. Continent of B/B. Last BM - 01/10. C/O pain to BLE with numbness+tingling & feeling anxious. Administered PRN APAP & hydroxyzine with + effect. Denies HAIR or N/V. No acute concern noted/reported thus far. Bed in low position & bed alarm on for safety. Calllight within reach. See CIS for full bio. Discharge Information Rehabilitation Discharge : Rehab Discharge Index 01/09/2023 10:07 EST Transfer tub/shower OT Plan Contact guard 01/09/2023 9:15 EST Walker: distance -01/08/2023 13:55 EST Comments on treatment indicated OT to address ADL's, transfers, safety Full chart review completed Yes Hospital course Please see comment Transfer tub/shower OT Plan Contact guard 01/06/2023 14:12 EST Full chart review completed Not Done: Task Duplication (Not Done) 01/06/2023 11:54 EST Comments on treatment indicated 57 y/o F with h/o poorly controlled diabetes and peripheral neuropathy presents with vertigo. Pt will benefit from short term rehab with Vestibular therapy to limit fall risk. Walker: distance 20-50 Full chart review completed Yes * Sara TRUJILLO, [place] D: PERFORM Event Display: Progress Note Hospital Authored Date: Patient: ??DONNA HAMPTON ? Age:??57 Years?Sex:??Female?:??1965?? Subjective Patient seen at bedside.?? Appears comfortable.?? Denies any nausea vomiting??chest pain or shortness of breath.?? Reports??mild dizziness on ambulation. Her potassium for some reason is elevated in spite of normal creatinine and no other medication causing elevated potassium.?? Repeat potassium at 3 PM pending -since patient will be staying tonight started hydration ?? Review of Systems Objective Measurements?? Height: 155 cm (01/09/23) Weight: 77.72 kg (01/05/23) Dry Weight: 77.72 kg (01/05/23) Body Mass Index:??32.35 kg/m2??Critical (01/05/23) ? Vital Signs?? Temperature: 97.8 DegF (01/10/23 11:00:00) Temperature Route: Oral (01/10/23 11:00:00) Pulse Rate:??100 bpm??High (01/10/23 11:00:00) Respiratory Rate: 18 br/min (01/10/23 14:39:00) Systolic Blood Pressure:??156 mm Hg??High (01/10/23 11:00:00) Diastolic Blood Pressure:??85 mm Hg??High (01/10/23 11:00:00) Blood pressure sites: Arm, right (01/10/23 11:00:00) Pulse Pressure: 51 mm Hg (01/10/23 03:00:00) Oxygen Saturation: 97 % (01/10/23 11:00:00) Mode of Delivery (Oxygen): Room air (01/10/23 11:00:00) Early Warning Score: 3 (01/10/23 16:02:03) ? Precautions Seizure Precautions ? Physical Exam General: Is appears comfortable in no distress??obese HEENT: ??mucous mucous membranes appear wet, PERRLA Cardiovascular: S1-S2 heard no murmurs appreciated Respiratory: CTA without any wheezing or crackles anteriorly GI: Abdomen nontender to palpation, no distention, no obvious hepatosplenomegaly Neuro: AOx3 plus date of , inconsistent strength examination??at some point it is 3 out of 5 but when distracted into the conversation it goes all the way to 5 out of 5 Psych: Appears calm without any agitation _ Inpatient Medications Medications (27) Active SCHEDULED: (16) Amlodipine 5 mg Tablet (amLODIPine 5 mg oral tablet) ??5 mg, By Mouth, Daily Aspirin 81 mg EC Tablet (Aspirin Tablet) ??81 mg, By Mouth, Daily Atorvastatin 40 mg Tablet (atorvastatin 40 mg oral tablet) ??40 mg, By Mouth, Daily Docusate Sodium 100 mg Capsule (docusate sodium 100 mg oral capsule) ??100 mg 1 capsule, By Mouth, 2 times a day Enoxaparin 40 mg Inj (Enoxaparin Inj) ??40 mg 0.4 mL, Subcutaneous Injection, Daily Folic Acid 1 mg Tablet (Folic Acid Tablet) ??1 mg, By Mouth, Daily Gabapentin 300 mg Capsule (gabapentin 300 mg oral capsule) ??300 mg, By Mouth, 3 times a day Insulin Lispro 100 units/mL Inj (3mL) (Insulin LISPRO Sliding Scale) ??2-10 units, Subcutaneous Injection, 3 times a day before meals Magnesium Oxide 400 mg Tablet (magnesium oxide 400 mg oral tablet) ??400 mg, By Mouth, 2 times a day Multivitamin Tablet ??1 tablet, By Mouth, Daily NaCl 0.9% Flush 3ml (NaCL 0.9% Flush) ??3 mL, IV Push, Every 8 hours Nicotine 21 mg / 24 hour Patch (Nicotine Topical) ??21 mg, Topically, Daily Pantoprazole 40 mg EC Tablet (pantoprazole 40 mg oral delayed release tablet) ??40 mg, By Mouth, Daily Pyridoxine 50 mg Tablet (Pyridoxine Tablet) ??50 mg, By Mouth, Daily Remove Patch (Remove ??Patch) ??1 each, Topically, Daily Thiamine 100 mg Tablet (Thiamine Tablet) ??100 mg, By Mouth, 2 times a day CONTINUOUS: (1) NaCL 0.9% (1000 mL) Cont IV 1,000 mL (NaCL 0.9% 1,000 mL) ??1,000 mL, IV Infusion, 75 mL/hr PRN: (10) Acetaminophen 325 mg Tablet (Acetaminophen Tablet) ??650 mg, By Mouth, Every 4 hours Albuterol 90mcg/Inhalation Inhaler HFA (Ventolin 90 mcg Inhaler) ??180 mcg 2 puffs, Inhalation, 4 times a day Dextrose Inj Syringe (Dextrose 50% Inj Syringe (25Gm)) ??12.5 Gm, IV Push Slowly, Every 20 minutes Dextrose Inj Syringe (Dextrose 50% Inj Syringe (25Gm)) ??25 Gm, IV Push Slowly, Every 15 minutes Glucagon 1 mg Inj (Glucagon Inj) ??1 mg, Intramuscular, Once Glucose 40% Gel (15 Gm) (Glucose Gel) ??15 Gm, By Mouth, Every 20 minutes Glucose 40% Gel (15 Gm) (Glucose Gel) ??30 Gm, By Mouth, Every 20 minutes HydrOXYzine Pamoate 25mg Capsule (hydrOXYzine pamoate 25 mg oral capsule) ??50 mg, By Mouth, Every 8 hours Melatonin 3 mg Tablet (melatonin 3 mg oral tablet) ??3 mg, By Mouth, Daily at bedtime NaCl 0.9% Flush 3ml (NaCL 0.9% Flush) ??3 mL, IV Push, Every 8 hours ? Results Recent Labs CHEM GENERAL Sodium 135 mmol/L ()?? 01/10/2023 08:01 Potassium 5.3 mmol/L (High)?? 01/10/2023 08:01 Chloride 102 mmol/L ()?? 01/10/2023 08:01 Bicarbonate Level 20 mmol/L (Low)?? 01/10/2023 08:01 Anion Gap 13 ()?? 01/10/2023 08:01 Glucose Level 158 mg/dL (High)?? 01/10/2023 08:01 Glucose, POC 191 mg/dL (High)?? 01/10/2023 15:54 BUN 11 mg/dL ()?? 01/10/2023 08:01 Creatinine-Blood 0.6 mg/dL ()?? 01/10/2023 08:01 Estimated GFR Creatinine 104 ML/MIN/1.73 M2 ()?? 01/10/2023 08:01 Calcium 9.5 mg/dL ()?? 01/10/2023 08:01 Magnesium 2.0 mg/dL ()?? 01/10/2023 01:27 ?? ENDOCRINE/TUMOR MARKER TSH 11.60 uIU/mL (High)?? 01/10/2023 08:01 Free T4 1.16 ng/dL ()?? 01/10/2023 08:01 ?? HEME OTHER Hold Lavender Top SPECIMEN DISCARDED AFTER 24 HOURS. ()?? 01/10/2023 08:01 ?? URINE OTHER Est Creatinine Clearance 78.15 mL/min ()?? 01/10/2023 09:04 ? Abnormal Labs ?? CHEM GENERAL ??Bicarbonate Level ??20 mmol/L (Low) ??01/10/2023 08:01 ??Estimated GFR Creatinine ??104 ML/MIN/1.73 M2 () ??01/10/2023 08:01 ??Glucose Level ??158 mg/dL (High) ??01/10/2023 08:01 ??Glucose, POC ??191 mg/dL (High) ??01/10/2023 15:54 ??Potassium ??5.3 mmol/L (High) ??01/10/2023 08:01 ? ENDOCRINE/TUMOR MARKER ??TSH ??11.60 uIU/mL (High) ??01/10/2023 08:01 ? HEME OTHER ??Hold Lavender Top ??SPECIMEN DISCARDED AFTER 24 HOURS. () ??01/10/2023 08:01 ? Note: Critical results are displayed in red. ?01/05/2023 14:[address] Abd/Pelvis W/ IV Contrast Only) IMPRESSION:?? No evidence of abscess. No evidence of acute abnormality.?? Mild colonic diverticulosis with no evidence of acute diverticulitis.?? Indeterminate 3.3 cm right adrenal and 2.1 cm left adrenal nodules, slightly enlarged since 08/18/2017. Follow-up with nonemergent MRI recommended for further evaluation. [1] ?? (01/05/2023 11:00 EST MRI Brain W/O Contrast) IMPRESSION: ?? 1. No evidence of an acute infarct. 2. Mild supratentorial white matter signal abnormality compatible with chronic microangiopathic/small vessel ischemic change. [2] ?? (01/03/2023 21:[address] Angio Neck Hyperacute Stroke) ?? IMPRESSION:?? No cutoff or high-grade stenosis of the major branches of the intracranial arteries. ??No aneurysm,stenosis, or vascular malformations present.?The right proximal internal carotid artery show no significant stenosis by NASCET criteria. ??The left proximal internal carotid artery show no significant stenosis by NASCET criteria. ??The right cervical vertebral artery shows no significant stenosis.?The left cervical vertebral artery shows no significant stenosis. [3] ?? But per neurology review?? CTA w/ multifocal stenosis of R M2 and L P3. ?? Echo 01/09/2023 ??ummary ??The left ventricle is poorly visualized. The left ventricle is normal in ??size. Left ventricular wall thickness is mildly increased. Left ventricular ??systolic function is low normal. There are no regional wall motion ??abnormalities. LVEF is visually estimated at 50-55%. Unable to assess ??diastolic function due to E/A fusion. ?The right ventricle is poorly visualized. The right ventricle is normal in ??size. Right ventricular systolic function appears preserved. [1] ? Amlodipine 5 mg Tablet (amLODIPine 5 mg oral tablet) ??5 mg, By Mouth, Daily Aspirin 81 mg EC Tablet (Aspirin Tablet) ??81 mg, By Mouth, Daily Atorvastatin 40 mg Tablet (atorvastatin 40 mg oral tablet) ??40 mg, By Mouth, Daily Docusate Sodium 100 mg Capsule (docusate sodium 100 mg oral capsule) ??100 mg 1 capsule, By Mouth, 2 times a day Enoxaparin 40 mg Inj (Enoxaparin Inj) ??40 mg 0.4 mL, Subcutaneous Injection, Daily Folic Acid 1 mg Tablet (Folic Acid Tablet) ??1 mg, By Mouth, Daily Gabapentin 300 mg Capsule (gabapentin 300 mg oral capsule) ??300 mg, By Mouth, 3 times a day Insulin Lispro 100 units/mL Inj (3mL) (Insulin LISPRO Sliding Scale) ??2-10 units, Subcutaneous Injection, 3 times a day before meals Magnesium Oxide 400 mg Tablet (magnesium oxide 400 mg oral tablet) ??400 mg, By Mouth, 2 times a day Multivitamin Tablet ??1 tablet, By Mouth, Daily NaCl 0.9% Flush 3ml (NaCL 0.9% Flush) ??3 mL, IV Push, Every 8 hours Nicotine 21 mg / 24 hour Patch (Nicotine Topical) ??21 mg, Topically, Daily Pantoprazole 40 mg EC Tablet (pantoprazole 40 mg oral delayed release tablet) ??40 mg, By Mouth, Daily Pyridoxine 50 mg Tablet (Pyridoxine Tablet) ??50 mg, By Mouth, Daily Remove Patch (Remove ??Patch) ??1 each, Topically, Daily Thiamine 100 mg Tablet (Thiamine Tablet) ??100 mg, By Mouth, 2 times a day CONTINUOUS: (1) NaCL 0.9% (1000 mL) Cont IV 1,000 mL (NaCL 0.9% 1,000 mL) ??1,000 mL, IV Infusion, 75 mL/hr ? Assessment/Plan Chief Complaint: Pt coming from home with c/o +NV and abd pain since . spots in vision today when standing, resolved after sitting. Edema noted to bilat LE. Rec'd IV zofran 4mg by ems, IV then d/c'd by ems. ? Chief Complaint: Pt coming from home with c/o +NV and abd pain since . spots in vision today when standing, resolved after sitting. Edema noted to bilat LE. Rec'd IV zofran 4mg by ems, IV then d/c'd by ems. ? The patient is a 57-year-old female with history of anxiety, panic disorder, obesity, DM, and possible ETOH abuse who presented to the ED with complaints of nausea, vomiting, and dizziness... CT headis nonacute. 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 The patient was seen by neurology who recommends admission for CVA rule out.?? MRI brain was negative for stroke however patient continues to have dizziness,??PT recommended??rehab placement. ??Echo??normal. ?? # Stroke-like symptom (R29.90):?? # Weakness (R53.1):?? # Gait instability (R26.81):?? # Hyperlipidemia (E78.5):?? # CVA (I63.9): ruled out # Dizziness with syncope at home # Orthostatic hypotension ?? presented to the ED with complaints of nausea, vomiting, and dizziness.?Also reports recent diarrhea -Reports multiple episodes of falling with 3 episodes of passing out at home??for which she did notseek medical attention CT head negative , CTA??was reported negative by radiologist??however shows multifocal stenosis of R M2 and L P3 per neurology. -MRI brain negative for acute stroke -Echo ordered given ??reports of syncope at home.?? ECHO??came out ??to be normal -Neurology consulted??this admission, recommended syncope/presyncope, to /orthostasis work-up. -Physical therapy recommended rehab -Continue telemetry, telemetry shows occasional sinus tachycardia -Folic acid normal, patient did present??with significantly concentrated urine with UA showing specific gravity 1.039??in setting of possible diarrhea? -Continue aspirin, atorvastatin -Orthostatics negative 01/08/23 but positive 01/09/23, continue fluids ? #Elevated potassium: Likely a lab error, patient does not seem to be any medications??and renal function stable Repeat potassium check- ? #Intermittent sinus tachycardia #Elevated TSH -Patient had 1 L fluid bolus, was fluid responsive -TSH??mildly elevated however free T4 normal,??does not explain her tachycardia -Could also be related to her anxiety ?? #History of hypertension:?Anxiety related elevation in blood pressure and heart rate? -Added low-dose amlodipine ?? #??history of alcohol abuse:??Reports only 2??drinks daily.?? Discontinued CIWA protocol continue thiamine, pyridoxine ?? #History of anxiety??: Patient reports??significant anxiety at home??as well as in the hospital.?? Also seems to have multiple pain symptoms at different sites. -Her exam??for strength is also inconsistent at different times.?? -Psychiatry consulted,??recommended continuing hydroxyzine 50 mg every 8 hourly??and outpatient follow-up??and increasing gabapentin to 300 3 times daily ? # left lower quadrant abdominal pain reporting LLQ abdominal pain not improving with bowl movement -CT scan of the abdomen??does not show??any diverticulitis/abscess ?? # Diabetes (E11.9):?? Hold Trulicity. -Continue sliding scale insulin, HbA1c?? 5.7 ?? GERD (gastroesophageal reflux disease) (K21.9):?? Substitute Pantoprazole for omeprazole. ?? #Adrenal nodule bilaterally:??Discussed with the patient??and was informed about adrenal nodules bilaterally.?Will need to follow-up with endocrinology outpatient ? Diet:?? Cardiac diabetic. VTE Prophylaxis:??Lovenox Code Status:??Full code, confirmed with patient, Discharge Planning:??Rehab placement,??case management??working on placement??likely tomorrow morning ? Diagnoses CVA (cerebrovascular accident) ??(I63.9) Diabetes ??(E11.9) Dizziness ??(R42) Dizziness ??(R42) GERD (gastroesophageal reflux disease) ??(K21.9) Gait instability ??(R26.81) Hyperlipidemia ??(E78.5) Stroke-like symptom ??(R29.90) Weakness ??(R53.1) ? * Roshni Lantigua RN: PERFORM, SIGN, VERIFY, MODIFY, SIGN Event Display: Progress Note Hospital Authored Date: [id number] Patient: DONNA HAMPTON Age: 57 years Sex: Female : 1965 Associated Diagnoses: None Author: Roshni Lantigua RN Pt A&O x3, VSS, minor dizziness with position changes. Pts orthos are positive. Currently receiving IV bolus of NS 1000mL. HR prior to bolus 114, HR post bolus 95. Pt has minor tremor and expresses tightness in the joints of the lower extremities. Per report pt was taken off CIWA d/t low scoring, but does experience minor tremors. Pt is able to follow commands and is continent of both urineand bowels. Pt expresses generalized weakness and is refusing boots at this time stating it's way too hot in here to wear those things . Pt lung sounds are clear and pt reports no SOB at rest and ptdoes not appear PRYOR. Pt last BM 01/09. Pt reports 2/10 pain to the bilat. lower extremities, and pt states good relief with Gabapentin. Pt last dose of marc late, so next admin available at 1999. Pt skin is intact with no rash or open wounds. Findings Problem Related to Alteration in Fluid Electrolyte : Alteration in Fluid Electrolyte Func/new 01/09/2023 15:53 EST Alteration Fluid Electrolytes Related to Hypovolemia Goals & Outcomes, Fluid/Electrolyte Blood glucose levels will stabilize during hospitalization,Pt will resume/maintain adequate cardiac output, Pt will resume/maintain adequate hemodynamic status, Pt will be rehydrated within 24-48 hours Interventions, Fluid Electrolyte monitor cardiac status, monitor effects of intravenous fluid, monitor for s/s of anemia: weakness, fatigue,, monitor GI/ status, monitor hydration status, monitor mucous membranes, monitor skin turgor, temperature & capillary refill BH Goals/Interventions,Fluid Electrolyte Yes Fluid Electrolyte, Problem Start 01/09/2023 15:55 Reviewed plan with, Fluid Electrolyte Patient Patient Progression, Fluid Electrolyte Plan Initiation . Discharge Information Rehabilitation Discharge : Rehab Discharge Index 01/08/2023 13:55 EST Comments on treatment indicated OT to address ADL's, transfers, safety Full chart review completed Yes Hospital course Please see comment Transfer tub/shower OT Plan Contact guard 01/06/2023 14:12 EST Full chart review completed Not Done: Task Duplication (Not Done) 01/06/2023 11:54 EST Comments on treatment indicated 57 y/o F with h/o poorly controlled diabetes and peripheral neuropathy presents with vertigo. Pt will benefit from short term rehab with Vestibular therapy to limit fall risk. Walker: distance 20-50 Full chart review completed Yes Consult note * Ronny TRUJILLO, Kit Chambers: PERFORM Event Display: Consultation Note Authored Date: Patient: ??DONNA HAMPTON ? Age:??57 Years?Sex:??Female?:??1965?? Chief Complaint/Reason for Consult Pt coming from home with c/o +NV and abd pain since . spots in vision today when standing, resolved after sitting. Edema noted to bilat LE. Rec'd IV zofran 4mg by ems, IV then d/c'd by ems. History of Present Illness Asked to evaluate this 57yo F with h/o DM,??tobacco abuse, panic d/o, ETOH for frequent falls. Pt was admitted approx 1 week ago with dizziness, nausea, vomiting, abd pain. CT head was negative. CT angio showed no occlusion or significant stenosis. CT abd/pelvis showed no acute findings except incidental adrenal nodules. Laboratory data was reassuring except for elevated TSH.??MRI brain showed nothing acute. Neurology signed off.?? Pt has had occasional falls at home prior to admission. She states the falls are often preceded by episodes of dizziness resulting in the falls. She states she hasneuropathy and no longer can climb the stairs in her house so her bed was moved downstairs since september. She uses a walker at baseline. She was living with her mother but she has recently been moved to hospice care due to dementia. She reports chronic numbness and tingling in her feet bilat. She denies any saddle anesthesia, bowel/bladder dysfunction, or any back pain. She was seen by PT and bed mobility and transfers were min assist. She ambulated approx 25 ft min assist and was noted to be orthostatic on BP check.??She has 3 daughters (2 are local). Review of Systems 14 point review of systems negative except as noted above in HPI. Physical Exam Vitals & Measurements T:??97.8?F?? HR:??101??(Peripheral)?? RR:??20?? BP:??157/90?? SpO2:??96%?? HT:??155??cm?? WT:??77.72??kg?? BMI:??32.35?? Gen: Alert, oriented x 3 in NAD HEENT: tracking bilat, PERRL CV: Reg, no murmurs Chest: CTA bilat Abd: +BS, soft, obese, NT Exts: no??pedal edema Neuro: CN II-XII intact MMT: Upper exts??5/5 with giveway weakness Lower exts??5/5 with giveway??weakness Beasley's negative Babinski negative Sensory: intact LT and PP except in feet bilat in??stocking distribution.?? DTRs: biceps 1+ bilat;??patellar??trace bilat.??Normal tone, no clonus.? Speech/Language: no dysarthria, fluent ?? Assessment/Plan 57yo F with h/o DM, HTN, anxiety, panic d/o, ETOH admitted for weakness, dizziness, abd pain, nausea and vomiting. Workup for stroke was negative. Pt noted to be orthostatic with PT. Pt reports presyncopal symptoms prior to her falls consistent with these findings. Possibly autonomic dysfunction related to her Diabetes. Recommend bilat MARGY hose and abd binder prior to ambulation. Case mgmt just informed me that she has a bed approved at local subacute rehab and patient is agreeable. These recs can be applied while at rehab. Continue Neurontin for neuropathic pain but caution should be used as it can cause dizziness. Seen with Heidi Chávez, student shadowing today. ? Problem List/Past Medical History Ongoing Anxiety Anxiety disorder Chronic chest pain Obese class I Panic disorder without agoraphobia with severe panic attacks 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 Procedure/Surgical History Laparoscopic cholecystectomy: 05/10/17 Home Medications Albuterol: 2 puffs, Inhalation, 4 times a day, PRN (for wheezing) Amlodipine: 5 mg, By Mouth, Daily Aspirin: 81 mg, By Mouth, Daily Atorvastatin: 40 mg = 1 tablet, By Mouth, Daily dulaglutide: 0.75 mg = 0.5 mL, Subcutaneous Injection, Every week Folic Acid: TAKE 1 TABLET BY MOUTH DAILY Gabapentin: 300 mg, By Mouth, 3 times a day HydrOXYzine: By Mouth, 3 times a day Magnesium Oxide: 400 mg, By Mouth, 2 times a day Melatonin: 5 mg = 1 tablet, By Mouth, Daily at bedtime, PRN (for insomnia) Omeprazole: 40 mg = 1 capsule, By Mouth, Daily Ondansetron: See Instructions, PRN (as needed for nausea/vomiting), 1-2 tablet By Mouth Every 8 hours Pyridoxine: 50 mg, By Mouth, Daily Thiamine: 100 mg, By Mouth, 2 times a day Hospital Medications Medications (26) Active SCHEDULED: (16) Amlodipine 5 mg Tablet (amLODIPine 5 mg oral tablet) ??5 mg, By Mouth, Daily Aspirin 81 mg EC Tablet (Aspirin Tablet) ??81 mg, By Mouth, Daily Atorvastatin 40 mg Tablet (atorvastatin 40 mg oral tablet) ??40 mg, By Mouth, Daily Docusate Sodium 100 mg Capsule (docusate sodium 100 mg oral capsule) ??100 mg 1 capsule, By Mouth, 2 times a day Enoxaparin 40 mg Inj (Enoxaparin Inj) ??40 mg 0.4 mL, Subcutaneous Injection, Daily Folic Acid 1 mg Tablet (Folic Acid Tablet) ??1 mg, By Mouth, Daily Gabapentin 300 mg Capsule (gabapentin 300 mg oral capsule) ??300 mg, By Mouth, 3 times a day Insulin Lispro 100 units/mL Inj (3mL) (Insulin LISPRO Sliding Scale) ??2-10 units, Subcutaneous Injection, 3 times a day before meals Magnesium Oxide 400 mg Tablet (magnesium oxide 400 mg oral tablet) ??400 mg, By Mouth, 2 times a day Multivitamin Tablet ??1 tablet, By Mouth, Daily NaCl 0.9% Flush 3ml (NaCL 0.9% Flush) ??3 mL, IV Push, Every 8 hours Nicotine 21 mg / 24 hour Patch (Nicotine Topical) ??21 mg, Topically, Daily Pantoprazole 40 mg EC Tablet (pantoprazole 40 mg oral delayed release tablet) ??40 mg, By Mouth, Daily Pyridoxine 50 mg Tablet (Pyridoxine Tablet) ??50 mg, By Mouth, Daily Remove Patch (Remove ??Patch) ??1 each, Topically, Daily Thiamine 100 mg Tablet (Thiamine Tablet) ??100 mg, By Mouth, 2 times a day CONTINUOUS: (0) PRN: (10) Acetaminophen 325 mg Tablet (Acetaminophen Tablet) ??650 mg, By Mouth, Every 4 hours Albuterol 90mcg/Inhalation Inhaler HFA (Ventolin 90 mcg Inhaler) ??180 mcg 2 puffs, Inhalation, 4 times a day Dextrose Inj Syringe (Dextrose 50% Inj Syringe (25Gm)) ??12.5 Gm, IV Push Slowly, Every 20 minutes Dextrose Inj Syringe (Dextrose 50% Inj Syringe (25Gm)) ??25 Gm, IV Push Slowly, Every 15 minutes Glucagon 1 mg Inj (Glucagon Inj) ??1 mg, Intramuscular, Once Glucose 40% Gel (15 Gm) (Glucose Gel) ??15 Gm, By Mouth, Every 20 minutes Glucose 40% Gel (15 Gm) (Glucose Gel) ??30 Gm, By Mouth, Every 20 minutes HydrOXYzine Pamoate 25mg Capsule (hydrOXYzine pamoate 25 mg oral capsule) ??50 mg, By Mouth, Every 8 hours Melatonin 3 mg Tablet (melatonin 3 mg oral tablet) ??3 mg, By Mouth, Daily at bedtime NaCl 0.9% Flush 3ml (NaCL 0.9% Flush) ??3 mL, IV Push, Every 8 hours Patient Instructions You presented for concerns of vomiting nausea and dizziness.?? We evaluated you for potential stroke using CT head imaging and MRI imaging.?? At this time you do find no evidence of stroke.?? Howeveryou have stenosis of some branches of your internal carotid arteries which supply the brain which neurology did not think needed intervention.?? You were also seen by the psychiatry team for concerns of generalized anxiety and panic attacks.?? They recommended increasing your gabapentin. You were seen by the Physiatry medicine doctors who recommended rehab placement. ?? New medications: 1) Amlodipine 5mg daily for blood pressure 2) Aspirin 81mg for stroke prevention 3) Thiamine 100mg?? 4) Magnesium oxide 400mg two times a day 5) Pyridoxine 50mg daily ?? Changed medication: 1) Gabapentin changed to 300mg three times a day Lab Results PM&R Labs ?? Tox Screen?? WBC: 8.6 k/mm3 (01/08/23) Ethanol, Serum or Plasma: NONE DETECTED (01/04/23) Platelet Count: 412 k/mm3 (01/08/23) ?? Sodium: 135 mmol/L (01/10/23) ?? BUN: 13 mg/dL (01/10/23) ?? Creatinine-Blood: 0.9 mg/dL (01/10/23) ?? Ethanol, Serum or Plasma: NONE DETECTED (01/04/23) ?? AST (SGOT): 23 units/L (01/03/23 21:55:00) ALT (SGPT):??39 units/L??High (01/03/23 21:55:00) * Madelin Rubi MD: PERFORM, MODIFY Event Display: Consultation Note Authored Date: [id number] Patient: ??DONNA HAMPTON ? Age:??57 Years?Sex:??Female?:??1965?? Chief Complaint/Reason for Consultation Anxiety History of Present Illness ?? Pt is a is a??57-year-old female with history??of??anxiety,??panic disorder, obesity, DM, and possible??ETOH??abuse??who presented to the ED with complaints of nausea, vomiting, and??dizziness.? Pt resting in bed and on her phone. She endorses longstanding anxiety throughout her life and reports hx of both generalized anxiety as well as panic attacks. She reports panic attacks start with tightness in her chest, difficulty breathing or tingling sensation. She reports she struggles to sleep at night because of the anxiety and has woken up from sleep with a panic attack. She reports during times of struggle in her life her anxiety does increase. Reports recently got out of rehab only to have to transition her mother to a hospice SNF due to her Dementia. Pt reports she visits her mother once a week with her sister who comes in from [place] but otherwise Pt is restricted to her first floor and home all the time. Has services VNA/OT/PT coming into the house as well. passed a yeara go and her adult children live in the area and are somewhat helpful. She reports low mood but denies SI/HI, denies pravin or psychosis. ? Past Psychiatric Hx: Dx: JUAN J, Panic Disorder Trials of Ativan, Xanax and Vistaril Use to be seen at the [facility]Trans[facility] issues now ?? Review of Systems 10 point review of systems negative except Pertinent positives as above noted.?? Objective Vital Signs?? Temperature: 97.9 DegF (01/08/23:28:00) Temperature Route: Oral (01/08/23::) Pulse Rate:??109 bpm??High (01/08/23::) Pulse Rate, Lyin bpm (01/08/23:28:00) Systolic Blood Pressure, Lyin mm Hg (01/08/23:28:00) Diastolic Blood Pressure, Lyin mm Hg (01/08/23::00) Pulse Rate, Sittin bpm (01/08/23:28:00) Systolic Blood Pressure, Sittin mm Hg (01/08/23::00) Diastolic Blood Pressure, Sittin mm Hg (01/08/23:28:00) Pulse Rate, Standin bpm (01/08/23:28:00) Systolic Blood Pressure, Standin mm Hg (01/08/23:28:00) Diastolic Blood Pressure, Standin mm Hg (01/08/23:28:00) Respiratory Rate: 19 br/min (01/08/23::00) Systolic Blood Pressure:??169 mm Hg??High (01/08/23 09:00:00) Diastolic Blood Pressure:??99 mm Hg??High (01/08/23 09:00:00) Blood pressure sites: Arm, right (01/08/23 07:00:00) Pulse Pressure: 70 mm Hg (01/08/23 07:00:00) Oxygen Saturation: 99 % (01/08/23 11:28:00) Mode of Delivery (Oxygen): Room air (01/08/23 07:00:00) Early Warning Score: 4 (01/08/23 11:47:11) ? Group Detail Date Value w/Units Flags Normal Range Normal Reference Text Comment Ind BLOOD COUNT & DIFF WBC 01/08/2023 08:04:00 EST 8.6 k/mm3 ?? 4.0-11.0 ? BLOOD COUNT & DIFF RBC 01/08/2023 08:04:00 EST 4.59 m/mm3 ?? 4.20-5.40 ? BLOOD COUNT & DIFF Hgb 01/08/2023 08:04:00 EST 13.9 Gm/dL ?? 11.7-15.5 ? BLOOD COUNT & DIFF Hct 01/08/2023 08:04:00 EST 40.7 % ?? 35.7-45.8 ? CHEM GENERAL Sodium 01/08/2023 06:46:00 EST 133 mmol/L ?? 133-145 ? CHEM GENERAL Potassium 01/08/2023 06:46:00 EST 5.2 mmol/L ?? 3.6-5.2 ? CHEM GENERAL Chloride 01/08/2023 06:46:00 EST 97 mmol/L L 98-107 ? CHEM GENERAL Bicarbonate Level 01/08/2023 06:46:00 EST 20 mmol/L L 22-29 ? CHEM GENERAL Anion Gap 01/08/2023 06:46:00 EST 16? 4-17 ? CHEM GENERAL Glucose Level 01/08/2023 06:46:00 EST 143 mg/dL H 70-99 ? CHEM GENERAL BUN 01/08/2023 06:46:00 EST 12 mg/dL ?? 6-20 ? CHEM GENERAL Creatinine-Blood 01/08/2023 06:46:00 EST 0.7 mg/dL ?? 0.5-1.0 ? CHEM GENERAL Estimated GFR Creatinine 01/08/2023 06:46:00 EST 102 ML/MIN/1.73 M2 ? Y CHEM GENERAL Calcium 01/08/2023 06:46:00 EST 9.7 mg/dL ?? 8.6-10.5 ? CHEM GENERAL Phosphorus 01/08/2023 06:46:00 EST 4.5 mg/dL ?? 2.5-4.5 ? CHEM GENERAL Magnesium 01/08/2023 06:46:00 EST 1.8 mg/dL ?? 1.6-2.3 ? TOXICOLOGY/TDM Ethanol, Serum or Plasma 01/04/2023 05:15:00 EST NONE DETECTED mg/dL ? Y ? Physical Exam ?? Mental Status Exam: Appearance:??casual ?? Attitude: cooperative. ? Motor activity: calm. ? Mood: I feel anxious . ? Affect: appropriate. ? Speech: fluent, unimpaired. ? Perception: no impairment. ? Orientation: intact. ? Memory: intact. ? Judgment: intact. ? Insight: intact. ? Thought process: goal-directed. ? Reliability:??good. ?? Suicidality/self-destructive behavior: none. ? Homicidality/violence: none. ?? Assessment/Plan ?? Pt is a is a??57-year-old female with history??of??anxiety,??panic disorder, obesity, DM, and possible??ETOH??abuse??who presented to the ED with complaints of nausea, vomiting, and??dizziness.? Pt with known hx of anxiety and panic attacks who has been out of psychiatric treatment for??several years. She endorses recent stressors have worsened her anxiety including her own mobility issues and her mother's recent cognitive decline and transition to??hospice SNF. Pt does have supports coming into the home and limited family supports as well. Recent hx of falls, concern in chart about alcohol use in the past although denies excessive current use. ?? Would recommend to consider increasing Gabapentin to 300mg TID as it can also be helpful for anxiety.?? Will leave outpatient followup options in discharge. ? Dx: Hx of JUAN J Hx of Panic??Disorder Hx of Alcohol use ?? Recommendations: -Increase Gabapentin to 300mg TID -Can offer Vistaril 50mg TID for this admission if needed to help with anxiety -Followup option in Discharge Histories Allergies Allergies ?(Active and Proposed Allergies Only) Bee Stings? (Severity: Unknown severity, Onset: Unknown) ? Past Medical History/Problem List Active Problems??(6) Anxiety Anxiety disorder Chronic chest pain Obese class I Panic disorder without agoraphobia with severe panic attacks 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 ? Past Surgical History Laparoscopic cholecystectomy: 05/10/17 ? Social History Alcohol Details:??Use: Current. ??Frequency: 1-2 times per week. Substance Abuse Details:??Use: Never. Tobacco Details:??Current every day smoker, Type: Cigarettes. Details:??Current every day smoker ? Psychosocial History ? Family History Sister: Panic disorder without agoraphobia ? Medications Home Medications Albuterol (ProAir HFA 90 mcg/inh inhalation aerosol with adapter)?2?puff(s)?Inhalation?4 times a day?as needed?for wheezing Atorvastatin (atorvastatin 40 mg oral tablet)?1?tab(s)?40?Milligram?By Mouth?Daily dulaglutide (Trulicity Pen 0.75 mg/0.5 mL subcutaneous solution)?0.5?Milliliter?0.75?Milligram?Subcutaneous Injection?Every week Folic Acid (folic acid 1 mg oral tablet)?TAKE 1 TABLET BY MOUTH DAILY Gabapentin (gabapentin 100 mg oral capsule)?200?Milligram?2?capsule?By Mouth?3 times a day HydrOXYzine (hydrOXYzine hydrochloride 25 mg oral tablet)?By Mouth?3 times a day Melatonin (Melatonin 5 mg oral tablet)?1?tab(s)?5?Milligram?By Mouth?Daily at bedtime?as needed?for insomnia Omeprazole (omeprazole 40 mg oral enteric coated capsule)?1?capsule?40?Milligram?By Mouth?Daily Ondansetron (ondansetron 4 mg oral tablet)?See Instructions?as needed?as needed for nausea/vomiting?1-2 tablet By Mouth Every 8 hours ? Inpatient Medications Medications (27) Active SCHEDULED: (16) Amlodipine 5 mg Tablet (amLODIPine 5 mg oral tablet) ??5 mg, By Mouth, Daily Aspirin 81 mg EC Tablet (Aspirin Tablet) ??81 mg, By Mouth, Daily Atorvastatin 40 mg Tablet (atorvastatin 40 mg oral tablet) ??40 mg, By Mouth, Daily Docusate Sodium 100 mg Capsule (docusate sodium 100 mg oral capsule) ??100 mg 1 capsule, By Mouth, 2 times a day Enoxaparin 40 mg Inj (Enoxaparin Inj) ??40 mg 0.4 mL, Subcutaneous Injection, Daily Folic Acid 1 mg Tablet (Folic Acid Tablet) ??1 mg, By Mouth, Daily Gabapentin 100 mg Capsule (gabapentin 100 mg oral capsule) ??200 mg, By Mouth, 3 times a day Insulin Lispro 100 units/mL Inj (3mL) (Insulin LISPRO Sliding Scale) ??2-10 units, Subcutaneous Injection, 3 times a day before meals Magnesium Oxide 400 mg Tablet (magnesium oxide 400 mg oral tablet) ??400 mg, By Mouth, 2 times a day Multivitamin Tablet ??1 tablet, By Mouth, Daily NaCl 0.9% Flush 3ml (NaCL 0.9% Flush) ??3 mL, IV Push, Every 8 hours Nicotine 21 mg / 24 hour Patch (Nicotine Topical) ??21 mg, Topically, Daily Pantoprazole 40 mg EC Tablet (pantoprazole 40 mg oral delayed release tablet) ??40 mg, By Mouth, Daily Pyridoxine 50 mg Tablet (Pyridoxine Tablet) ??50 mg, By Mouth, Daily Remove Patch (Remove ??Patch) ??1 each, Topically, Daily Thiamine 100 mg Tablet (Thiamine Tablet) ??100 mg, By Mouth, 2 times a day CONTINUOUS: (0) PRN: (11) Acetaminophen 325 mg Tablet (Acetaminophen Tablet) ??650 mg, By Mouth, Every 4 hours Albuterol 90mcg/Inhalation Inhaler HFA (Ventolin 90 mcg Inhaler) ??180 mcg 2 puffs, Inhalation, 4 times a day Dextrose Inj Syringe (Dextrose 50% Inj Syringe (25Gm)) ??12.5 Gm, IV Push Slowly, Every 20 minutes Dextrose Inj Syringe (Dextrose 50% Inj Syringe (25Gm)) ??25 Gm, IV Push Slowly, Every 15 minutes Glucagon 1 mg Inj (Glucagon Inj) ??1 mg, Intramuscular, Once Glucose 40% Gel (15 Gm) (Glucose Gel) ??15 Gm, By Mouth, Every 20 minutes Glucose 40% Gel (15 Gm) (Glucose Gel) ??30 Gm, By Mouth, Every 20 minutes HydrOXYzine Pamoate 25mg Capsule (hydrOXYzine pamoate 25 mg oral capsule) ??25 mg, By Mouth, Every 6 hours Lorazepam 2 mg Inj Syringe (Ativan Inj) ??1 mg, IV Push Slowly, Every 6 hours Melatonin 3 mg Tablet (melatonin 3 mg oral tablet) ??3 mg, By Mouth, Daily at bedtime NaCl 0.9% Flush 3ml (NaCL 0.9% Flush) ??3 mL, IV Push, Every 8 hours ? Results ? Blood Glucose Trend Glucose Level:??143 mg/dL??High (01/08/23 06:46:00) Glucose, POC:??171 mg/dL??High (01/08/23 11:36:00) Glucose, POC:??132 mg/dL??High (01/08/23 06:38:00) Glucose, POC:??128 mg/dL??High (01/07/23 22:00:00) Glucose, POC:??120 mg/dL??High (01/07/23 16:11:00) ? CBC, CBC w/Diff?? CBC?? WBC: 8.6 k/mm3 (08:04) RBC: 4.59 m/mm3 (08:04) Hct: 40.7 % (08:04) RDW-SD: 43.1 femtoliters (08:04) Nucleated RBC (Automated): 0 #/100 WBC'S (08:04) Abs. NRBC: 0 k/mm3 (08:04) ? LFT?? No qualifying data available. ?? Urinalysis Est Creatinine Clearance: 66.99 mL/min (07:40) ?? * Bk DUNBAR, Alicia Ceja: PERFORM Event Display: Consultation Note Authored Date: Patient: ??DONNA HAMPTON ? Age:??57 Years?Sex:??Female?:??1965?? Chief Complaint/Reason for Consultation Pt coming from home with c/o +NV and abd pain since . spots in vision today when standing, resolved after sitting. Edema noted to paloma EMANUEL. Rec'd IV zofran 4mg by ems, IV then d/c'd by ems. History of Present Illness 57 y/o F w/ PMH of anxiety, panic disorder, obesity, DM, and apparent ? etoh abuse per daughter whopresented to the ED with complaints of nausea, vomiting, abdominal pain, blurry vision when standing, dizziness. LKW bedtime the night before but patient cannot state a time frame for this. She awoke this??morning??and stated she felt off .?? Patient went back to bed??hoping to??brush??it??off.?? At 1400,??patient noted dizziness??that is exacerbated??with position changes, especially standing.?? She further notes abdominal pain, nausea, and vomiting since??.?? Patient is requesting abdominal u/s and BLE u/s to evaluate for her abdominal pain and for blood clots. ??Patient not on anyantiplatelets or any??anticoagulation. ? Stroke Time Course: Time patient last seen well (not time patient was found):??cannot state but sometime the night prior as she woke up not feeling good Time patient arrived in ED:??1741 Time neurology consulted/paged:??[id number] Time patient is seen by neurology:??[address] head/interpreted:?? tPA Given:??No tPA time if given: N/A Reason for tPA exclusion if not given:??OOW Review of Systems As stated in HPI. Objective Measurements?? Height: 155 cm (01/03/23) Weight: 79 kg (01/03/23) Dry Weight: 79 kg (01/03/23) Body Mass Index:??32.88 kg/m2??Critical (01/03/23) ? Vital Signs?? Temperature: 97.7 DegF (01/03/23 21:24:00) Temperature Route: Oral (01/03/23 21:24:00) Pulse Rate:??105 bpm??High (01/03/23 22:14:00) Respiratory Rate:??13 br/min??Low (01/03/23 22:14:00) Systolic Blood Pressure:??167 mm Hg??High (01/03/23 22:14:00) Diastolic Blood Pressure: 83 mm Hg (01/03/23 22:14:00) Blood pressure sites: Arm, left (01/03/23 22:14:00) Mean Arterial Pressure: 125 mm Hg (01/03/23 21:24:00) Pulse Pressure: 84 mm Hg (01/03/23 22:14:00) Oxygen Saturation: 97 % (01/03/23 22:14:00) Mode of Delivery (Oxygen): Room air (01/03/23 22:14:00) ? Intake/Output? No Data Available ?? NIH Stroke Scale Level of Consciousness for Stroke Scale: Alert (01/03/23 21:30:00) Response Month/Age: Answers both questions correctly (01/03/23 21:30:00) Response Open/Close Eyes: Performs both tasks correctly (01/03/23 21:30:00) Best Gaze: Normal (01/03/23 21:30:00) Visual: No visual loss (01/03/23 21:30:00) Facial Palsy: Normal symmetrical movements (01/03/23 21:30:00) Motor Function Left Arm: No drift (01/03/23 21:30:00) Motor Function Right Arm: No drift (01/03/23:30:00) Motor Function Left Leg: No drift (01/03/23:30:00) Motor Function Right Leg: No drift (01/03/23:30:) Limb Ataxia: Absent (01/03/23:30:) Sensory: Normal; no sensory loss (01/03/23:30:00) Best Language: No aphasia (01/03/23::) Dysarthria NIH Stroke Scale: Normal (01/03/23::) Extinction and Inattention: No abnormality (01/03/23:30:) NIH Stroke Scale Score: 0 (01/03/23:30:) ?? Seven Coma Scale Seven Coma Score: 15 (01/03/23 18:09:00) Motor Response-Adult: Obeys commands (01/03/23 18:09:00) Response Eye Opening: Spontaneously (01/03/23 18:09:00) Verbal Response-Adult: Oriented and converses (01/03/23 18:09:00) ? Physical Exam Gen: NAD, awake, alert HEENT: normocephalic, atraumatic. No ptosis. Nares patent. Mouth normal. Psych: not depressed or anxious Cardio: RRR Lungs: normal I:E Abdomen: nondistended Extremities: no edema Skin: warm and dry Neuro: Mental status is??intact, no deficits Speech is fluent w/o dysarthria and aphasia. Names well. Follows simple and complex commands. Cranial Nerves: PERRL, EOMI without nystagmus, VFF. No facial droop. Facial sensation intact. Tongue midline. Motor:??BUE 4/5, tremulous and need encouragement. BLE 4-/5, +Hoovers. No pronator drift. Sensation: Intact light touch sensation bilaterally. Coordination: No ataxia or dysmetria noted with finger to nose.?? Reflexes: Plantar reflexes: Flexor ?? Assessment/Plan 57 y/o F w/ PMH of anxiety, panic disorder, obesity, DM, and apparent ? etoh abuse per daughter whopresented to the ED with complaints of nausea, vomiting, abdominal pain, blurry vision when standing,and??dizziness. LKW bedtime the night before. Awoke stated she felt off and then later noted dizziness??that is exacerbated??with position changes, especially when??standing.??She further notes abdominal pain, nausea, and vomiting since??.??CTH nonacute. 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 Exam nonfocal, appears to have a functional component. ?? Dx: Dizziness??with position changes,??abdominal pain, nausea, vomiting,??blurry vision:??Nonfocal exam, functional component; r/o stroke ?? Recommendations: - admit to D5A for q 4 hour neuro checks - MRI of brain w/o??to assess for infarct - ASA 81mg daily - check thiamine, folate, and B12 - IV thiamine after drawing labs - check LDL. recommend goal LDL <70 with high dose statin - check A1C - cardiac telemetry - NPO until passes swallow eval - DVT ppx with SQH - permissive hypertension - provide stroke education - outpatient goals LDL between 40 &70, A1C <7%, and BP <120/80? D/w Dr. Marroquin D/w Dr. Garrett Call/cortex with any questions. Neurology will follow. ?? Histories Allergies Allergies ?(Active and Proposed Allergies Only) Bee Stings? (Severity: Unknown severity, Onset: Unknown) ? Past Medical History/Problem List Active Problems??(6) Anxiety Anxiety disorder Chronic chest pain Obese class I Panic disorder without agoraphobia with severe panic attacks 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 ? Past Surgical History Laparoscopic cholecystectomy: 05/10/17 ? Social History Alcohol Details:??Use: Current. ??Frequency: 1-2 times per week. Substance Abuse Details:??Use: Never. Tobacco Details:??Current every day smoker, Type: Cigarettes. Details:??Current every day smoker ? Family History Sister: Panic disorder without agoraphobia ? Stroke Treatment Details Able to close lips, pucker and blow out: Yes Able to swallow own secretions: Yes Absence of dysarthria/dysphonia/aphonia: Yes No delay in swallowing (tsp): Yes Patient alert: Yes Swallows water without choking (60cc): Yes Swallows water without choking (tsp): Yes Voice sounds clear, not gurgly (60cc): Yes Voice sounds clear, not gurgly (tsp): Yes Voluntary Cough: Yes ?? Medications Home Medications Albuterol (ProAir HFA 90 mcg/inh inhalation aerosol with adapter)?2?puff(s)?Inhalation?4 times a day?as needed?for wheezing Alprazolam (ALPRAZolam 0.5 mg oral tablet)?0.5?Milligram?1?tablet?By Mouth?Daily?as needed?TAKE 1 TABLET ??DAILY?anxiety Docusate (docusate sodium 100 mg oral capsule)?100?Milligram?1?capsule?By Mouth?2times a day?Please take until first bowel movement, then can take only if you have constipation. GlipiZIDE (glipiZIDE 10 mg oral tablet)?1?tab(s)?10?Milligram?By Mouth?2 times a day?for 90?Days?Last filled 06/27/2019 HydrOXYzine (Atarax Tablet)?20?Milligram?By Mouth?4 times a day?as needed?as needed for anxiety?for 30?Days?Last filled 09/24/2019 MedroxyPROGESTERone (Provera 10 mg oral tablet)?10?Milligram?1?tablet?By Mouth?Daily?for 10?Days Melatonin (Melatonin 5 mg oral tablet)?1?tab(s)?5?Milligram?By Mouth?Daily at bedtime?as needed?for insomnia Metformin (metFORMIN 500 mg oral tablet, extended release)?2?tab(s)?1,000?Milligram?By Mouth?2 times a day?for 90?Days?Last filled 07/23/2019 Metoclopramide (Reglan 10 mg oral tablet)?1?tab(s)?10?Milligram?By Mouth?4 times a day Omeprazole (omeprazole 40 mg oral enteric coated capsule)?1?capsule?40?Milligram?By Mouth?Daily Ondansetron (ondansetron 4 mg oral tablet)?See Instructions?as needed?as needed for nausea/vomiting?1-2 tablet By Mouth Every 8 hours Pravastatin (pravastatin 40 mg oral tablet)?1?tab(s)?40?Milligram?By Mouth?Daily?for 90?Days?Last filled June 27, 2019 sitagliptin (Januvia 100 mg oral tablet)?1?tab(s)?100?Milligram?By Mouth?Daily?for 90?Days?Last filled 06/27/2019 ? Inpatient Medications Medications (1) Active SCHEDULED: (1) Aspirin 81 mg EC Tablet (Aspirin Tablet) ??81 mg, By Mouth, Daily CONTINUOUS: (0) PRN: (0) ? Results Recent Labs CHEM GENERAL Glucose, POC 121 mg/dL (High)?? 01/03/2023 21:15 ? Abnormal Labs ?? CHEM GENERAL ??Glucose, POC ??121 mg/dL (High) ??01/03/2023 21:15 ? Note: Critical results are displayed in red. ? Blood Glucose Trend Glucose, POC:??121 mg/dL??High (01/03/23 21:15:00) ? CBC, CBC w/Diff?? No qualifying data available. ?? BMP, Mg, and Phos?? No qualifying data available. ?? Coagulation Profile?? No qualifying data available. ?? LFT?? No qualifying data available. ?? Urinalysis?? No qualifying data available. ? Blood Gases?? No qualifying data available. ?? Uric/LDH?? No qualifying data available. ? * Jo Marroquin MD: PERFORM Event Display: Consultation Note Authored Date: [id number] Attending Attestation:??I have discussed the case and its management with the advanced practitionerand agree with the findings and plan as documented in the advanced practitioner???s note. ?? Jo Marroquin M.D Attending-Vascular Neurology Department of Neurosciences [id number] ? Please note - The above note was created using [employer] software and dictation errors may have occurred; I apologize for any mistakes in the scale balancer. ??Thank you for your patience as we continue to work on perfecting the dictation process. ??Please feel free to contact us for any clarification purposes. Note * Loretta Wright RN: PERFORM Event Display: Discharge/Transfer Note Hospital Authored Date: [id number] Nursing Discharge Note Entered On: 01/11/2023 20:16 EST Performed On: 01/11/2023 20:11 EST by Loretta Wright RN Nursing Discharge Note 2 Discharge Time : 01/11/2023 19:00 EST Discharge Level of Care at Discharge : half-way facility Discharge Nursing Homes/Rehab Facilities : [facility] Patient Left Unit Via : Ambulance Patient Accompanied Off Unit with : Ambulance/Chair Van Personnel Handover Given to Transport Personnel : Yes DC Instructions Provided & Signed by Pt : Yes Patient Understands D/C Instructions : Yes Patient Instructions Discharge Signed : Yes Discharge Comments : Patient D/C'd to facility via ambulance. Anxious about transition, PRN ativan given before D/C. Stable upon D/C. IV D[facility]C'd [facility] issue. Questions encouraged and answered. Did Pt have Specialty Bed or Wound Vac : No Adriana MULLEN, Loretta Davis - 01/11/2023 20:11 EST * Robbie TRUJILLO, Ted: PERFORM, MODIFY Event Display: Discharge/Transfer Note Hospital Authored Date: [id number] Patient: ??DONNA HAMPTON ? Age:??57 Years?Sex:??Female?:??1965?? Patient Information Discharge Location: A Primary Care Physician: Spencer Ramires Admit Date/Time: 01/03/23 23:31 Discharge Disposition Discharge Disposition: [facility] Facility/Rehab Discharge Diagnosis CVA (cerebrovascular accident) (I63.9) Diabetes (E11.9) Dizziness (R42) Dizziness (R42) GERD (gastroesophageal reflux disease) (K21.9) Gait instability (R26.81) Hyperlipidemia (E78.5) Stroke-like symptom (R29.90) Weakness (R53.1) ?? _ Discharge Medications Albuterol (ProAir HFA 90 mcg/inh inhalation aerosol with adapter)?2?puff(s)?Inhalation?4 times a day?as needed?for wheezing Amlodipine (amLODIPine 5 mg oral tablet)?5?Milligram?By Mouth?Daily Aspirin (Aspirin Tablet)?81?Milligram?By Mouth?Daily Atorvastatin (atorvastatin 40 mg oral tablet)?1?tab(s)?40?Milligram?By Mouth?Daily dulaglutide (Trulicity Pen 0.75 mg/0.5 mL subcutaneous solution)?0.5?Milliliter?0.75?Milligram?Subcutaneous Injection?Every week Folic Acid (folic acid 1 mg oral tablet)?TAKE 1 TABLET BY MOUTH DAILY Gabapentin (gabapentin 300 mg oral capsule)?300?Milligram?By Mouth?3 times a day HydrOXYzine (hydrOXYzine hydrochloride 25 mg oral tablet)?By Mouth?3 times a day Magnesium Oxide (magnesium oxide 400 mg oral tablet)?400?Milligram?By Mouth?2 times a day Melatonin (Melatonin 5 mg oral tablet)?1?tab(s)?5?Milligram?By Mouth?Daily at bedtime?as needed?for insomnia Omeprazole (omeprazole 40 mg oral enteric coated capsule)?1?capsule?40?Milligram?By Mouth?Daily Ondansetron (ondansetron 4 mg oral tablet)?See Instructions?as needed?as needed for nausea/vomiting?1-2 tablet By Mouth Every 8 hours Pyridoxine (Pyridoxine Tablet)?50?Milligram?By Mouth?Daily Thiamine (thiamine 100 mg oral tablet)?100?Milligram?By Mouth?2 times a day ? Quality Measures Stroke Quality Measures:? Tobacco Use Treatment:? Medications Started 1) Amlodipine 5mg daily for blood pressure 2) Aspirin 81mg for stroke prevention 3) Thiamine 100mg?? 4) Magnesium oxide 400mg two times a day 5) Pyridoxine Medications Discontinued none Doses Changed Gabapentin 300mg TID PCP Follow-Up/Heads-Up - Dizziness, nausea, vomiting.?? Evaluated for stroke.?? However imaging negative.Evaluated for orthostatic hypotension which is intermittently positive. Started on aspirin, atorvastatin. -Also found to have hypertension for which amlodipine 5 daily was started. -Due to history of alcohol use also discharged on oral thiamine and magnesium oxide. - Has incidental findings of adrenal nodules bilaterally that needs outpatient followup -Please follow-up in your clinic within 1 week for vitals, CBC, comprehensive metabolic panel, magnesium level. Hospital Course ??57-year-old female with history of anxiety, panic disorder, obesity, DM, and possible ETOH abuse who presented to the ED with complaints of nausea, vomiting, and dizziness... CT head is nonacute. 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 The patient was seen by neurology who recommends admission for CVA rule out.?? MRI brain was negative for stroke however patient continues to have dizziness,??PT recommended??rehab placement. ??Echo??normal. Orthostatic vitals variable andintermittently positive indicating??possible cause of symptoms. ?? # Orthostatic hypotension?? Hyperlipidemia (E78.5):?? 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 MRI brain negative for acute stroke Echo ordered given ??reports of syncope at home.?? ECHO??came out ??to be normal Neurology consulted??this admission, recommended syncope/presyncope, to /orthostasis work-up. Physical therapy recommended rehab Orthostatics negative 01/08/23 but positive 01/09/23, was given??fluids. Negative again on 01/11 Recommendaiotns: -Encourage good PO intake. Titrate blood pressure meds appropriately -Continue aspirin, atorvastatin - Per PM&R patient will benefit from bilat MARGY hose and abd binder prior to ambulation ?? #Intermittent sinus tachycardia Elevated TSH TSH??mildly elevated however free T4 normal,??does not explain her tachycardia Likely hypovolemia which also caused orthostatic hypotension. God fluid boluses which improved symptoms. Recommendations: - Encourage PO intake ?? # hypertension: -low-dose amlodipine ?? #??history of alcohol abuse:??Reports only 2??drinks daily.?? Discontinued CIWA protocol continue thiamine, pyridoxine, folate ?? #History of anxiety??: Patient reports??significant anxiety at home??as well as in the hospital.?? Also seems to have multiple pain symptoms at different sites. Her exam??for strength is also inconsistent at different times likely from anxiety Psychiatry consulted,??recommended?? Recommendations: - Increase ??gabapentin to 300 3 times daily - COntinue Hydroxyzine ?? # left lower quadrant abdominal pain - no cause found reporting LLQ abdominal pain not improving with bowl movement CT scan of the abdomen??does not show??any diverticulitis/abscess Recommendations: - PCP follow up ?? # Diabetes (E11.9):?? Continue home Trulicity. ?? GERD (gastroesophageal reflux disease) (K21.9):?? Continue ??omeprazole. ?? #Adrenal nodule bilaterally:??Discussed with the patient??and was informed about adrenal nodules bilaterally.?Will need to follow-up with PCP and if indicated endocrinology outpatient Objective Vital Signs?? Temperature: 97.8 DegF (01/11/23 11:00:00) Temperature Route: Oral (01/11/23 11:00:00) Pulse Rate:??101 bpm??High (01/11/23 11:00:00) Pulse Rate, Lyin bpm (01/11/23 11:56:00) Systolic Blood Pressure, Lyin mm Hg (01/11/23 11:56:00) Diastolic Blood Pressure, Lyin mm Hg (01/11/23 11:56:00) Pulse Rate, Sittin bpm (01/11/23 11:56:00) Systolic Blood Pressure, Sittin mm Hg (01/11/23 11:56:00) Diastolic Blood Pressure, Sittin mm Hg (01/11/23 11:56:00) Pulse Rate, Standin bpm (01/11/23 11:56:00) Systolic Blood Pressure, Standin mm Hg (01/11/23 11:56:00) Diastolic Blood Pressure, Standin mm Hg (01/11/23 11:56:00) Respiratory Rate: 20 br/min (01/11/23 11:00:00) Systolic Blood Pressure:??157 mm Hg??High (01/11/23 11:00:00) Diastolic Blood Pressure:??90 mm Hg??High (01/11/23 11:00:00) Blood pressure sites: Arm, left (01/11/23 11:00:00) Oxygen Saturation: 96 % (01/11/23 11:00:00) Mode of Delivery (Oxygen): Room air (01/11/23 11:00:00) Early Warning Score: 4 (01/11/23 13:56:15) ? . Physical Exam Gen?awake, alert, oriented to self, location, date, and situation? Cardiac?no JVD. RRR, no murmurs, rubs, or gallops noted.? Pulmonary?lungs CTAB with good air entry? GI/Abdomen?soft, NT, ND, good bowel sounds. no HSM or masses noted.? MSK/Ext?no cyanosis, clubbing, or edema. good perfusion.? Derm?no new rashes noted? Neuro?PERRL. EOMI. CN 2-12 intact. strength 4/5 in??all extremities. Pending Results Add On Lab Order ordered on 01/03/2023 Add On Lab Order ordered on 01/04/2023 Add On Lab Order ordered on 01/09/2023 Add On Lab Order ordered on 01/10/2023 Follow-Up Appointments Added Follow Up ?Time Frame ?Comments [facility]?Please call to arrange intake with therapist Patient Instructions You presented for concerns of vomiting nausea and dizziness.?? We evaluated you for potential stroke using CT head imaging and MRI imaging.?? At this time you do find no evidence of stroke.?? Howeveryou have stenosis of some branches of your internal carotid arteries which supply the brain which neurology did not think needed intervention.?? You were also seen by the psychiatry team for concerns of generalized anxiety and panic attacks.?? They recommended increasing your gabapentin. You were seen by the Physiatry medicine doctors who recommended rehab placement. ?? New medications: 1) Amlodipine 5mg daily for blood pressure 2) Aspirin 81mg for stroke prevention 3) Thiamine 100mg?? 4) Magnesium oxide 400mg two times a day 5) Pyridoxine 50mg daily ?? Changed medication: 1) Gabapentin changed to 300mg three times a day Home Health Face to Face ^[id number] Results Discharge Labs BLOOD COUNT & DIFF WBC 8.6 k/mm3 ()?? 01/08/2023 08:04 RBC 4.59 m/mm3 ()?? 01/08/2023 08:04 Hgb 13.9 Gm/dL ()?? 01/08/2023 08:04 Hct 40.7 % ()?? 01/08/2023 08:04 MCV 88.7 femtoliters ()?? 01/08/2023 08:04 MCH 30.3 pg ()?? 01/08/2023 08:04 MCHC 34.2 g/dL ()?? 01/08/2023 08:04 Platelet Count 412 k/mm3 ()?? 01/08/2023 08:04 RDW-SD 43.1 femtoliters ()?? 01/08/2023 08:04 MPV 8.6 femtoliters (Low)?? 01/08/2023 08:04 Nucleated RBC (Automated) 0.0 #/100 WBC'S ()?? 01/08/2023 08:04 Abs. NRBC 0.0 k/mm3 ()?? 01/08/2023 08:04 Abs. Neut 6.3 k/mm3 ()?? 01/03/2023 21:55 Abs. Lymph 5.2 k/mm3 (High)?? 01/03/2023 21:55 Abs. Ogle 1.0 k/mm3 (High)?? 01/03/2023 21:55 Abs. Eo 0.2 k/mm3 ()?? 01/03/2023 21:55 Abs. Baso 0.1 k/mm3 ()?? 01/03/2023 21:55 Neut % 49.1 % ()?? 01/03/2023 21:55 Lymph % 40.5 % ()?? 01/03/2023 21:55 Ogle % 7.7 % ()?? 01/03/2023 21:55 Eos % 1.6 % ()?? 01/03/2023 21:55 Baso % 0.7 % ()?? 01/03/2023 21:55 Platelet Estimate ADEQUATE ()?? 01/03/2023 21:55 Imm Gran 0.4 % ()?? 01/03/2023 21:55 Abs. Imm Gran 0.1 k/mm3 ()?? 01/03/2023 21:55 ? CARDIAC High Sensitivity Troponin (HSTnT) 10 ng/L ()?? 01/08/2023 08:04 ? CHEM GENERAL Sodium 135 mmol/L ()?? 01/10/2023 16:03 Potassium 4.7 mmol/L ()?? 01/10/2023 16:03 Chloride 103 mmol/L ()?? 01/10/2023 16:03 Bicarbonate Level 20 mmol/L (Low)?? 01/10/2023 16:03 Anion Gap 12 ()?? 01/10/2023 16:03 Glucose Level 211 mg/dL (High)?? 01/10/2023 16:03 Glucose, POC 156 mg/dL (High)?? 01/11/2023 11:11 Hemoglobin A1C (Monitoring) 5.7 % (High)?? 01/04/2023 05:15 BUN 13 mg/dL ()?? 01/10/2023 16:03 Creatinine-Blood 0.9 mg/dL ()?? 01/10/2023 16:03 Estimated GFR Creatinine 72 ML/MIN/1.73 M2 ()?? 01/10/2023 16:03 Calcium 9.0 mg/dL ()?? 01/10/2023 16:03 Phosphorus 4.5 mg/dL ()?? 01/08/2023 06:46 Magnesium 2.0 mg/dL ()?? 01/10/2023 01:27 Protein, Total 6.4 Gm/dL ()?? 01/03/2023 21:55 Albumin 4.3 Gm/dL ()?? 01/03/2023 21:55 AG Ratio 2.0 ()?? 01/03/2023 21:55 Alkaline Phosphatase 85 units/L ()?? 01/03/2023 21:55 AST (SGOT) 23 units/L ()?? 01/03/2023 21:55 ALT (SGPT) 39 units/L (High)?? 01/03/2023 21:55 Bilirubin, Total 0.3 mg/dL ()?? 01/03/2023 21:55 Vitamin B12 Level 577 pg/mL ()?? 01/04/2023 05:15 Folic Acid Level 22.6 ng/mL ()?? 01/04/2023 05:15 ? COAG INR 1.0 ()?? 01/03/2023 21:55 Protime (PT) 10.3 seconds ()?? 01/03/2023 21:55 APTT 25.4 seconds ()?? 01/03/2023 21:55 ? ENDOCRINE/TUMOR MARKER TSH 11.60 uIU/mL (High)?? 01/10/2023 08:01 Free T4 1.16 ng/dL ()?? 01/10/2023 08:01 ?? HEME OTHER Hold Lavender Top SPECIMEN DISCARDED AFTER 24 HOURS. ()?? 01/10/2023 08:01 ? LIPID STUDIES Cholesterol 123 mg/dL ()?? 01/04/2023 05:15 Triglycerides 114 mg/dL ()?? 01/04/2023 05:15 HDL Cholesterol 56 mg/dL ()?? 01/04/2023 05:15 LDL Cholesterol 44 mg/dL ()?? 01/04/2023 05:15 Non HDL Cholesterol 67 mg/dL ()?? 01/04/2023 05:15 ? MISC. CHEMISTRY Hold Gel Top SPECIMEN DISCARDED AFTER 1 WEEK ()?? 01/08/2023 08:04 ? TOXICOLOGY/TDM Ethanol, Serum or Plasma NONE DETECTED mg/dL ()?? 01/04/2023 05:15 ? UA/URINALYSIS Appear/Color, Urine LIGHT YELLOW ()?? 01/06/2023 06:18 Specific [place], Urine 1.039 (High)?? 01/06/2023 06:18 pH, Urine 7.0 ()?? 01/06/2023 06:18 Albumin, Urine NEGATIVE ()?? 01/06/2023 06:18 Glucose, Urine NEGATIVE ()?? 01/06/2023 06:18 Ketones, Urine NEGATIVE ()?? 01/06/2023 06:18 Bilirubin, Urine NEGATIVE ()?? 01/06/2023 06:18 Hemoglobin, Urine NEGATIVE ()?? 01/06/2023 06:18 Nitrite, Urine NEGATIVE ()?? 01/06/2023 06:18 Leukocyte, Urine NEGATIVE ()?? 01/06/2023 06:18 Urobilinogen NORMAL mg/dL ()?? 01/06/2023 06:18 WBC's, Urine 2 /HPF ()?? 01/06/2023 06:18 RBC's, Urine 2 /HPF ()?? 01/06/2023 06:18 Bacteria SLIGHT HPF (Abnormal)?? 01/06/2023 06:18 Squamous Epith 2 /HPF ()?? 01/06/2023 06:18 Hold Urine Culture Testing available 48 hours from time of collection. ()?? 01/06/2023 06:18 ?? URINE OTHER Est Creatinine Clearance 52.10 mL/min ()?? 01/10/2023 16:55 ? 35 minutes spent on discharge * Aleena Booth RN: VERIFY, PERFORM, SIGN Event Display: Case Management Discharge Plan Authored Date: Patient: DONNA HAMPTON Age: 57 years Sex: Female : 1965 Associated Diagnoses: None Author: Aleena Booth RN Discharge Plan Case Management Discharge Plan : Case Management Discharge Plan Data 01/11/2023 15:10 EST Discharge Level of Care at Discharge half-way facility Discharge Nursing Homes/Rehab Facilities [facility] Discharge Transportation Arranged [facility] [address] [facility] [phone] Discharge Arranged Transport Date/Time 01/11/2023 17:00 Mode of Transportation Arranged Ambulance * Gil RN, Isa: MODIFY Gil MULLEN, Isa: MODIFY Event Display: Patient Education/Instruction Authored Date: [id number] Inpatient Adult Discharge Instructions [address] [address] Name: DONNA HAMPTON : 1965 Visit: 01/03/2023 23:31:00 Current Date: 01/11/2023 16:53 Account: [id number] Inpatient Adult Discharge Instructions We would like to thank you for allowing us to assist you with your healthcare needs. The following includes patient education materials and information regarding your injury/illness. Our entire staffstrives to provide an excellent experience for our patients and their families. PLEASE ENSURE YOU FOLLOW-UP PER THE INSTRUCTIONS BELOW! ?? YOUR OPINION IS IMPORTANT TO US! Please complete the survey you may receive by mail or email. Your feedback will be used to make improvements to the healthcare experiences of our patients and their families. Surveys are administered by [employer] ?? If further treatment with your primary care physician or another doctor is recommended, it is important for you to keep the appointment. Call your primary care physician or return to the Emergency Department immediately if your condition worsens, fails to improve, or new symptoms develop. If you need to find a doctor, you can call [facility] [employer] for a referral at [phone] or toll free at [phone] ([phone]) or log in to [email or web address].. ?? [facility], in keeping with [facility] guidance, no longer requires face masks for staff, patientsor visitors in most situations. Similiar to time spent indoors at other locations, there is the chance that you were exposed to repiratory viruses during your time with us (such as flu or COVID-19). If you develop symptoms concerning for a viral respiratory infection, please seek testing (and treatment if indicated) from your medical provider or home test kit. ?? You can view and manage your care through the patient portal or by using a health care rudy of your choosing. [employer] is a website that allows you to securely view your medical information including your hospital discharge summary, office visit summaries, medications and follow-up visits. You can also request appointments, renew medications, and request access to your medical information using a health care rudy of your choosing, or just ask a question. You can enroll at [email or web address] or register during your next office visit. You have been discharged from [facility], Patient Care Unit: D5A. If you have any questions regarding these instructions after you leave, please call us and we will be happy to assist you. [facility] Your Care Team Attending Physician Stevo TRUJILLO, Kirsten Consulting Providers Ronny TRUJILLO, Madelin Walls MD Discharging Providers Robbie TRUJILLO, Ted Reason for Admission Pt coming from home with c/o +NV and abd pain since . spots in vision today when standing, resolved after sitting. Edema noted to bilat LE. Rec'd IV zofran 4mg by ems, IV then d/c'd by ems. Your Diagnosis Weakness Gait instability Stroke-like symptom Dizziness Dizziness Diabetes CVA (cerebrovascular accident) Hyperlipidemia GERD (gastroesophageal reflux disease) Tests Performed Below is a partial list of the tests performed during your hospitalization. You may have had other tests and procedures not included in this list. Please discuss all test results with your provider. Basic Metabolic Panel CBC CBC w/ Differential Comprehensive Metabolic Panel ETHANOL FOLIC ACID FREE T4 GLUCOSE POC Hgb A1C (Monitoring) High??Sensitivity??Troponin T HOLD GEL TUBE HOLD LAVENDER TUBE Lipid Panel Magnesium Level Mg Level PHOSPHORUS PT (INR) PTT Troponin T, High Sensitivity TSH Urinalysis w/hold for Urine Culture VITAMIN B12 CT Abd/Pelvis W/ IV Contrast Only CT Angio Head Hyperacute Stroke CT Angio Neck Hyperacute Stroke CT Head-Hyper Acute Stroke MRI Brain W/O Contrast Primary Care Provider Srikanth DUNBAR, Spencer Howard Advance Directive Health Care Proxy on File Yes - Health Care Proxy Discharge Vitals Temperature: 97.8 DegF Height: 155 cm Pulse Rate:??101 bpm??High Weight: 77.72 kg Respiratory Rate: 18 br/min Body Mass Index:??32.35 kg/m2??Critical Systolic Blood Pressure:??157 mm Hg??High Body surface area: 1.83 Diastolic Blood Pressure:??90 mm Hg??High ?? Oxygen Saturation: 96 % ?? Studies Pending All tests and labs ordered during this hospital stay have been completed unless listed below. Please discuss all pending results with your provider listed above in these instructions. ?? Add On Lab Order What to do next Instructions From Your Doctor You presented for concerns of vomiting nausea and dizziness.?? We evaluated you for potential stroke using CT head imaging and MRI imaging.?? At this time you do find no evidence of stroke.?? Howeveryou have stenosis of some branches of your internal carotid arteries which supply the brain which neurology did not think needed intervention.?? You were also seen by the psychiatry team for concerns of generalized anxiety and panic attacks.?? They recommended increasing your gabapentin. You were seen by the Physiatry medicine doctors who recommended rehab placement. ?? New medications: 1) Amlodipine 5mg daily for blood pressure 2) Aspirin 81mg for stroke prevention 3) Thiamine 100mg?? 4) Magnesium oxide 400mg two times a day 5) Pyridoxine 50mg daily ?? Changed medication: 1) Gabapentin changed to 300mg three times a day Discharge Orders You Need to Schedule the Following Appointments Follow Up with??[facility] Why: Please call to arrange intake with therapist Where: [address] [place] [address]- Discharge Medications DONNA HAMPTON :1965 Visit Date:01/03/2023 Medications: Please continue your medications until treatment is completed or stopped by your provider. Medications not listed below should be discontinued. Discuss any questions related to medications with your provider. What How Much When Instructions Next Dose New Amlodipine (amLODIPine 5 mg oral tablet) 5 Milligram Oral Daily Tomorrow 01/12/23 at 9am New Aspirin (Aspirin Tablet) 81 Milligram Oral Daily Tomorrow 01/12/23 at 9am New Magnesium Oxide (magnesium oxide 400 mg oral tablet) 400 Milligram Oral Twice a day Today 01/11/23 at 9pm New Pyridoxine (Pyridoxine Tablet) 50 Milligram Oral Daily Tomorrow 01/12/23 at 9am New Thiamine (thiamine 100 mg oral tablet) 100 Milligram Oral Twice a day Today 01/11/23 at 9pm Changed Gabapentin (gabapentin 300 mg oral capsule) 300 Milligram Oral 3 times a day Today 01/11/23 at 9pm Changed HydrOXYzine (hydrOXYzine hydrochloride 25 mg oral tablet) Oral 3 times a day Today 01/11/23 at 9pm Unchanged Albuterol (ProAir HFA 90 mcg/ inh inhalation aerosol with adapter) 2 puff(s) Inhalation 4 times a day as needed for for wheezing As directed, not given Unchanged Atorvastatin (atorvastatin 40 mg oral tablet) 1 tab(s) Oral Daily Tomorrow 01/12/23 at 9am Unchanged dulaglutide (Trulicity Pen 0.75 mg/ 0.5 mL subcutaneous solution) 0.5 Milliliter Subcutaneous Injection Every week As directed, not given Unchanged Folic Acid (folic acid 1 mg oral tablet) TAKE 1 TABLET BY MOUTH DAILY ?? Tomorrow 01/12/23 at 9am Unchanged Melatonin (Melatonin 5 mg oral tablet) 1 tab(s) Oral Daily at Bedtime as needed for for insomnia As directed, last dose 01/09 As needed Unchanged Omeprazole (omeprazole 40 mg oral enteric coated capsule) 1 capsule Oral Daily Tomorrow 01/12/23 at 9am Unchanged Ondansetron (ondansetron 4 mg oral tablet) See instructions 1-2 tablet By Mouth Every 8 hours, As needed for as needed for nausea/ vomiting ?? As directed, not given ?? What How Much When Comments Stop Taking Alprazolam (ALPRAZolam 0.5 mg oral tablet) 1 tab(s) Oral Daily as needed for anxiety TAKE 1 TABLET ??DAILY ?? Stop Taking GlipiZIDE (glipiZIDE 10 mg oral tablet) 1 tab(s) Oral Twice a day Duration: 90 Days Last filled 2019 ?? Stop Taking Metformin (metFORMIN 500 mg oral tablet, extended release) 2 tab(s) Oral Twice a day Duration: 90 Days Last filled 2019 ?? Stop Taking Metoclopramide (Reglan 10 mg oral tablet) 1 tab(s) Oral 4 times a day Stop Taking Pravastatin (pravastatin 40 mg oral tablet) 1 tab(s) Oral Daily Duration: 90 Days Last filled June 27, 2019 ?? Stop Taking sitagliptin (Januvia 100 mg oral tablet) 1 tab(s) Oral Daily Duration: 90 Days Last filled 2019 ?? Test Results Below is a partial list of the most recent Laboratory test results done prior to this discharge. You may have had other tests and procedures not included in this list. Please discuss all test resultswith your provider. Est Creatinine Clearance - 52.10 mL/min (01/10/2023) Basic Metabolic Panel (01/10/2023) ???Sodium - 135 mmol/L???Potassium - 4.7 mmol/L???Chloride - 103 mmol/L???Bicarbonate Level - 20 mmol/L???Anion Gap - 12???Glucose Level - 211 mg/dL???BUN - 13 mg/dL???Creatinine-Blood - 0.9 mg/dL???Estimated GFR Creatinine - 72 ML/MIN/1.73 M2???Calcium - 9.0 mg/dL CBC (01/08/2023) ???WBC - 8.6 k/mm3???RBC - 4.59 m/mm3???Hgb - 13.9 Gm/dL???Hct - 40.7 %???MCV - 88.7 femtoliters???MCH - 30.3 pg???MCHC - 34.2 g/dL???Platelet Count - 412 k/mm3???RDW-SD - 43.1 femtoliters???MPV - 8.6 femtoliters???Nucleated RBC (Automated) - 0.0 #/100 WBC'S???Abs. NRBC - 0.0 k/mm3 CBC w/ Differential (01/03/2023) ???WBC - 12.8 k/mm3???RBC - 4.19 m/mm3???Hgb - 12.8 Gm/dL???Hct - 38.0 %???MCV - 90.7 femtoliters???MCH - 30.5 pg???MCHC - 33.7 g/dL???Platelet Count - 415 k/mm3???RDW-SD - 47.0 femtoliters???MPV - 8.8 femtoliters???Nucleated RBC (Automated) - 0.0 #/100 WBC'S???Abs. NRBC - 0.0 k/mm3???Abs. Neut - 6.3 k/mm3???Abs. Lymph - 5.2 k/mm3???Abs. Ogle - 1.0 k/mm3???Abs. Eo - 0.2 k/mm3???Abs. Baso - 0.1 k/mm3???Neut % - 49.1 %???Lymph % - 40.5 %???Ogle % - 7.7 %???Eos % - 1.6 %???Baso % - 0.7 %???Platelet Estimate - ADEQUATE???Imm Gran - 0.4 %???Abs. Imm Gran - 0.1 k/mm3 Comprehensive Metabolic Panel (01/03/2023) ???Sodium - 138 mmol/L???Potassium - 4.1 mmol/L???Chloride - 98 mmol/L???Bicarbonate Level - 25 mmol/L???Anion Gap - 15???Glucose Level - 136 mg/dL???BUN - 8 mg/dL???Creatinine-Blood - 0.6 mg/dL???Estimated GFR Creatinine - 103 ML/MIN/1.73 M2???Calcium - 9.5 mg/dL???Protein, Total - 6.4 Gm/dL???Albu min - 4.3 Gm/dL???AG Ratio - 2.0???Alkaline Phosphatase - 85 units/L???AST (SGOT) - 23 units/L???ALT (SGPT) - 39 units/L???Bilirubin, Total - 0.3 mg/dL ETHANOL (01/04/2023) ???Ethanol, Serum or Plasma - NONE DETECTED FOLIC ACID (01/04/2023) ???Folic Acid Level - 22.6 ng/mL FREE T4 (01/10/2023) ???Free T4 - 1.16 ng/dL GLUCOSE POC (01/11/2023) ???Glucose, POC - 135 mg/dL Hgb A1C (Monitoring) (01/04/2023) ???Hemoglobin A1C (Monitoring) - 5.7 % High??Sensitivity??Troponin T (01/03/2023) ???High Sensitivity Troponin (HSTnT) - 14 ng/L HOLD GEL TUBE (01/08/2023) ???Hold Gel Top - SPECIMEN DISCARDED AFTER 1 WEEK HOLD LAVENDER TUBE (01/10/2023) ???Hold Lavender Top - SPECIMEN DISCARDED AFTER 24 HOURS. Lipid Panel (01/04/2023) ???Cholesterol - 123 mg/dL???Triglycerides - 114 mg/dL???HDL Cholesterol - 56 mg/dL???LDL Cholesterol - 44 mg/dL???Non HDL Cholesterol - 67 mg/dL Magnesium Level (01/10/2023) ???Magnesium - 2.0 mg/dL Mg Level (01/05/2023) ???Magnesium - 1.7 mg/dL PHOSPHORUS (01/08/2023) ???Phosphorus - 4.5 mg/dL PT (INR) (01/03/2023) ???INR - 1.0???Protime (PT) - 10.3 seconds PTT (01/03/2023) ???APTT - 25.4 seconds Troponin T, High Sensitivity (01/08/2023) ???High Sensitivity Troponin (HSTnT) - 10 ng/L TSH (01/10/2023) ???TSH - 11.60 uIU/mL Urinalysis w/hold for Urine Culture (01/06/2023) ???Appear/Color, Urine - LIGHT YELLOW???Specific [place], Urine - 1.039???pH, Urine - 7.0???Albumin, Urine - NEGATIVE???Glucose, Urine - NEGATIVE???Ketones, Urine - NEGATIVE???Bilirubin, Urine - NEGATIVE???Hemoglobin, Urine - NEGATIVE???Nitrite, Urine - NEGATIVE???Leukocyte, Urine - NEGATIVE???Urobi linogen - NORMAL???WBC's, Urine - 2 /HPF???RBC's, Urine - 2 /HPF???Bacteria - SLIGHT???Squamous Epith - 2 /HPF???Hold Urine Culture - Testing available 48 hours from time of collection. VITAMIN B12 (01/04/2023) ???Vitamin B12 Level - 577 pg/mL Immunizations This Visit Given Vaccine Date influenza virus vaccine, inactivated 01/06/2023 Allergies (NKA means No Known Allergies) Bee Stings Problems Active Problems??(6) Anxiety?? Anxiety disorder?? Chronic chest pain?? Obese class I?? Panic disorder without agoraphobia with severe panic attacks?? 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 Education Materials Below is the list of Educational Leaflet Providered with your Discharge Instructions. Stroke: Resources and Support?? Dizziness (Vertigo) and Balance Problems: Staying Safe?? Stroke: Resources and Support?? Risk Factors for Stroke?? Anatomy of the Brain?? The F.A.S.T. Way to Diagnose a Stroke?? Valuables and Belongings I fully understand and agree that [facility] accepts no responsibility for all my personal property including clothing, toilet articles, radios, jewelry, dentures, hearing aids, rings, money, or any other property that is in my possession or is brought to me after admission. I understand certain valuables may be placed in a hospital safe for a short period of time. I understand that the hospital is not liable for loss or damage due to accident, fire, or other natural occurrence while said property is in the safe. I accept full responsibility for any personal property that I keep with me, and will not hold the hospital responsible in case of loss or disappearance. I acknowledge that i have been encouraged to send valuables and belongings home. ?? No Valuables/Belongings: No valuables/belongings present Review of Valuable and Belonging List: With patient, With witness Date for Pt to Sign Valuables/Belongings: 01/06/23 18:15:00 ?? Other Discharge Information ? Case Management Discharge Plan?? Discharge Plan?? Discharge Level of Care at Discharge: half-way facility [facility] [phone] Mode of Transportation Arranged: Ambulance Discharge Arranged Transport Date/Time: 01/11/23 17:00:00 Discharge Nursing Homes/Rehab Facilities: [facility] ?? Pulmonary Rehab Status?? Pulmonary Rehab Discharge Status?? Respiratory Rate: 18 br/min ? Common Emergency Awareness Tips IS IT A STROKE? Act FAST and Check for these signs: FACE Does the face look uneven? ARM Does one arm drift down? SPEECH Does their speech sound strange? TIME Call at any sign of stroke ?? Heart Attack Signs Chest discomfort: Most heart attacks involve discomfort in the center of the chest and lasts more than a few minutes, or goes away and comes back. It can feel like uncomfortable pressure, squeezing, fullness or pain. Discomfort in upper body: Symptoms can include pain or discomfort in one or both arms, back, neck, jaw or stomach. Shortness of breath: With or without discomfort. Other signs: Breaking out in a cold sweat, nausea, or lightheaded. Remember, MINUTES DO MATTER. If you experience any of these heart attack warning signs, call to get immediate medical attention! ?? Smoking can increase your chances of developing chronic health problems and can cause harmful effects to other family members in your house. If you smoke, you are strongly encouraged to quit. Please call [facility] [employer] at [phone] or [phone]) or log in to [email or web address] for referrals to smoking cessation programs. ?? 179 Suicide & Crisis Lifeline is available 12/09 if you or someone you know needs to find a reason to keep living. By calling 575 you'll be connected to a skilled, trained counselor at a crisis center in your area. INPATIENT DISCHARGE INSTRUCTIONS SIGNATURE PAGE DONNA HAMPTON Location:[facility] Registration Date and Time:01/03/2023 23:31 EST Primary Care Physician: Spencer Ramires, Attending Physician: Kirsten Whiteside MD, I DONNA HAMPTON, have received the above patient education materials/instructions and have verbalized understanding. If ambulance or transport services are being used I further acknowledge being given a choice of service. ?? If you need to contact me, please call me at this number: . Patient/Cupola Melter Name: Patient/Cupola Melter Signature: Relationship to Patient: Witness Name/Signature: Date: * Marietta Carbajal RN: PERFORM Event Display: Patient Education Leaflets Authored Date: [id number] Stroke: Resources and Support ?? [id number] Stroke: Resources and Support Your loved one may??need ongoing therapy or nursing care after a stroke. Talk with a social media strategist or case monitor. Thy can help with planning for care. They can tell you about local sources of support. Planning for home care ??? A nurse may come and check their blood pressure. ??? A physical therapist may help with exercises. The therapist will often show your loved one and their family members certain exercises that canbe done without supervision. ??? Speech and occupational therapists can help the whole family communicate and handle tasks of daily living better. ?? Adult daycare You may be afraid to leave your loved one alone. Adult daycare facilities can provide supervision if you need time away during the day. They also give your loved one a chance to be with other people. ?? Other resources You can also check the internet for other resources. Try the following listings: ??? Churches and synagogues ??? Recreation centers ??? Adult daycare ??? new client banking services clerk ??? Support groups ??? Onlinestroke support communities ?? Last Reviewed Date: 2021 ?? 6138-2396 [employer] All rights reserved. This information is not intended as a substitute for professional medical care. Always follow your healthcare professional's instructions. ?? * Marietta Carbajal RN: PERFORM Event Display: Patient Education Leaflets Authored Date: [id number] Dizziness (Vertigo) and Balance Problems: Staying Safe ?? [address] Dizziness (Vertigo) and Balance Problems: Staying Safe Falls or accidents can lead to pain, broken bones, a hospital stay, and a fear of future falls. Protect yourself and others by preparing for episodes. Simple steps can help you stay safe at home and wherever you go. Lighting Replace burned-out light bulbs to keep your home safe and well lit. Keep all areas well lit. This helps your eyes send the right signals to the brain. It also makes you less likely to trip and fall. If bright lights make symptoms worse, dim the lights or lie in a dark room until the dizziness passes. Then turn the lights back to their normal level. Tips: ??? Keep a flashlight by the bed. ??? Place nightlights in bathrooms and hallways. ??? Replace burned-out bulbs. Or have someone replace them for you. ?? Preventing falls To reduce your risk of falling: ??? Get out of bed or up from a??chair slowly. ??? Wear low-heeled shoes that fit properly and have slip-resistant soles. ??? Remove throw rugs. Clear clutter from walkways. ??? Use handrails on stairs. Have handrails installed or adjusted if needed. ??? Install grabbars in the bathroom. Don't use towel racks for balance. ??? Use a shower stool. Also put adhesive strips in the shower or on the tub floor. ??? Sit down to put on clothes or lace up shoes ?? Going out With a little time and preparation, you can get around safely. Tips: ??? Use a cane or walking aid if needed. ??? Give yourself plenty of time in case you start to get dizzy. ??? Ask your healthcare provider what type of exercise is safe for your condition. ??? Be patient. If an activity, such as walking through a crowded shop, causes you stress, you may not be ready for it yet. ?? Driving If you become dizzy or disoriented while driving, you could hurt yourself and others. That's why it's best not to drive until symptoms have gone away. In some cases, your license may be temporarily held until it's safe for you to drive again. For safety: ??? Ask a friend to drive for you. ??? Take public transportation. ??? Walk to stores and other places when you can. ?? Support Don't be afraid to ask for help running errands, cooking meals, and exercising. Whether it's a friend, loved one, neighbor, or stranger on the street, a little help can make a world of difference. Ask your healthcare provider for a list of community resources if you need help maintaining your independence at home. ?? Last Reviewed Date: 2021 ?? [employer]. All rights reserved. This information is not intended as a substitute for professional medical care. Always follow your healthcare professional's instructions. ?? * Marietta Carbajal RN: PERFORM Event Display: Patient Education Leaflets Authored Date: [id number] Stroke: Resources and Support ?? 19754 Stroke: Resources and Support Your loved one may??need ongoing therapy or nursing care after a stroke. Talk with a social media strategist or case monitor. Thy can help with planning for care. They can tell you about local sources of support. Planning for home care ??? A nurse may come and check their blood pressure. ??? A physical therapist may help with exercises. The therapist will often show your loved one and their family members certain exercises that canbe done without supervision. ??? Speech and occupational therapists can help the whole family communicate and handle tasks of daily living better. ?? Adult daycare You may be afraid to leave your loved one alone. Adult daycare facilities can provide supervision if you need time away during the day. They also give your loved one a chance to be with other people. ?? Other resources You can also check the internet for other resources. Try the following listings: ??? Churches and synagogues ??? Recreation centers ??? Adult daycare ??? new client banking services clerk ??? Support groups ??? Onlinestroke support communities ?? Last Reviewed Date: 2021 ?? [employer]. All rights reserved. This information is not intended as a substitute for professional medical care. Always follow your healthcare professional's instructions. ?? Patient Care team information Care Team Personnel Name: Spencer Ramires Position: Reference Physician Member Role: PCP Address: Address: [address] [place] [id number] Name: Loretta Wright RN Position: [facility] RN Member Role: Primary Care Nurse Name: Ann Parham MA Position: [facility] RN Member Role: Primary Care Nurse Name: Layne Odonnell Position: [facility] RN Member Role: Primary Care Nurse Name: Angie Vidal RN Position: [facility] RN Member Role: Primary Care Nurse Name: Roshni Lantigua RN Position: [facility] RN Member Role: Primary Care Nurse Name: Rex Coe RN Position: [facility] RN Member Role: Primary Care Nurse Name: Safia Umanzor Position: [facility] Outreach Member Role: Lifetime Consulting Physician Name: Karen KINCAID Attending Position: [facility] ED Medicine Name: Dillon Fabian RN Position: [facility] ED RN W/OE and Tasks Member Role: Patient Care Provider Name: Gloria Sandy Position: [facility] ED OA Charge Member Role: ED Associate Care Team Related Persons Name: JOSEBRANDI DUDLEYYSTAL Address: home [address] [place] [id number]
[2023-02-10 00:49] LABS: MANUAL DIFF FLAG NO
[2023-02-10 00:50] LABS: Basophils Absolute Auto 0.1 X10*3/uL (0.0-0.2); Basophils Percent Auto 0.5 % (0-2); Eosinophils Absolute Auto 0.4 X10*3/uL (0.0-0.4); Hematocrit 35.3 % (37.0-47.0); Hemoglobin 12.3 g/dl (12.0-16.0); Imm Gran Abs Auto 0.04 X10*3/uL (0.00-0.03); Imm Gran Pct Auto 0.3 % (0.0-0.4); Lymphocytes Percent Auto 30.3 % (20-40); Mean Corpuscular HGB Conc 34.8 g/dl (31.0-35.0); Mean Corpuscular Hemoglobin 30.7 pg (27.0-33.0); Mean Platelet Volume 8.2 fL (9.4-12.3); Monocytes Absolute Auto 0.7 X10*3/uL (0.1-1.2); Monocytes Percent Auto 5.5 % (2-11); Neutrophils Percent Auto 60.4 % (45-73); Platelet Count 442 X10*3/uL (160-400); Red Blood Count 4.01 X10*6/uL (4.20-5.50); Red Cell Distribution Width 12.8 % (11.0-16.0); White Blood Count 13.3 X10*3/uL (4.8-10.8)
[2023-02-10 00:55] LABS: INTERNATIONAL NORM RATIO 0.9 (0.9-1.1); Prothrombin Time 10.9 SEC (11.1-13.3)
[2023-02-10 01:09] LABS: B Type Natriuretic Peptide 15 pg/mL (<100)
[2023-02-10 01:11] LABS: Alanine Aminotransferase 34 U/L (0-31); Albumin Level 3.8 g/dL (3.5-5.0); Alkaline Phosphatase 79 U/L (39-117); Anion Gap 13 (12-20); Aspartate Amino Transferase 28 U/L (5-31); Bilirubin Direct 0.2 mg/dL (0.0-0.5); Bilirubin Total 0.3 mg/dL (0.0-1.0); Blood Urea Nitrogen 6 mg/dL (9-16); Calcium 9.4 mg/dL (8.4-10.2); Carbon Dioxide 24 mmol/L (22-29); Chloride 104 mmol/L (96-108); Creatinine Clr Calc Pharmacy 89.9; Estimated Glomerular Filt Rate > 60; Ethanol < 10 mg/dL; Glucose Random 105 mg/dL (60-115); Magnesium 1.9 mg/dL (1.6-2.6); Potassium 3.5 mmol/L (3.3-5.1); Sodium 137 mmol/L (135-145); Total Protein 6.8 g/dL (6.5-8.0)
[2023-02-10 01:24] LABS: TSH reflex Free T4 2.22 uIU/mL (0.32-4.0)
[2023-02-10 01:53] LABS: Influenza A PCR NEGATIVE (Negative); Influenza B PCR NEGATIVE (Negative); Resp Syncy Virus RNA Qual PCR NEGATIVE (Negative); SARS COV2 PCR INHOUSE NEGATIVE (Negative)
[2023-02-10 02:05] LABS: Appearance Urine Clear; Color Urine Yellow; Glucose Urine UA Negative (Negative); Leukocyte Esterase Urine Trace (Negative); Nitrite Urine Negative (Negative); PH 5.5 (5.0-9.0); UMIC TRIGGER UACC YES; Urine Blood Negative (Negative); Urine Ketones Negative (Negative); Urine Protein Negative (Neg-Trace)
[2023-02-10 02:10] LABS: Bacteria Urine None Seen (None Seen); Hyaline Casts Urine 0-2 /LPF (0-2); RBC Urine 0-2 /HPF (0-2); WBC Urine 0-5 /HPF (0-5)
[2023-02-10 02:14] LABS: Amphetamine Screen Urine Not Detected (Not Detect); Barbiturates, Urine Not Detected (Not Detect); Benzodiazepines Screen Urine Not Detected (Not Detect); Cannabinoid Screen Urine Not Detected (Not Detect); Cocaine Screen Urine Not Detected (Not Detect); Fentanyl, urine Not Detected (Not Detect); Opiate Screen Urine Not Detected (Not Detect); Phencyclidine Screen Urine Not Detected (Not Detect)
[2023-02-10] MEDS: LORazepam 1 MG TABLET PO (02:41)
--- NOTE | 2023-02-10 04:29 | MHC.EDTECH ---
call out to [facility] at 0417 to book transport for pt, estimated eta given was [phone]
[2023-02-10 06:26] VITALS: BP 137/81; PULSE 100; RESP 16; TEMP 36.6
== END 2023-02-10 06:30 | disposition home or self-care (01) ==
PROVIDERS: Emergency Provider Emergency Medicine
DX: R25.2 Cramp and spasm (principal); R42 Dizziness and giddiness; R10.2 Pelvic and perineal pain; R60.0 Localized edema; R06.02 Shortness of breath; I10 Essential (primary) hypertension; Z20.822 Contact with and (suspected) exposure to COVID-19; Z20.828 Contact with and (suspected) exposure to other viral communicable diseases; Z79.899 Other long term (current) drug therapy
CPT/HCPCS: 0241U; 36415; 70450; 80048; 80076; 80307; 81001; 82550; 83735; 83880; 84443; 85025; 85610; 93970; 99284

== ENCOUNTER 2023-02-12 21:25 | Emergency (ER) | payer OTHER, SELFPAY ==
[2023-02-12 21:36] VITALS: BP 152/79; PULSE 106; RESP 20; TEMP 36.6; O2SAT 98
[2023-02-12 21:42] VITALS: BP 150/86; PULSE 106; O2SAT 98; BMI 31.4
--- NOTE | 2023-02-12 21:46 | ED.SEIZURE ---
HPI - Seizure General Chief Complaint: Weakness Stated Complaint: CC slurred speech Time Seen by Provider: 02/12/23 21:33 Source: patient and EMS Mode of arrival: EMS Limitations: no limitations History of Present Illness HPI Narrative: Patient's history of alcohol use disorder, anxiety, depression, hypertension, diabetes and rest leg syndrome was seen here on 02/[address] was negative comes back as has another episode of movement of the legs this time into the mouth also and she bit her tongue from mouth movements/? Seizure no postictal phase noted on arrival patient is alert oriented x3 still having leg movements on 02/10 had the same situation and patient received Ativan and responded Related Data Previous Rx's Medication Instructions Recorded lorazepam 1 mg tablet (Ativan) 1 mg PO TID PRN Movement Disorder 02/12/23 #20 tabs ropinirole 0.25 mg tablet 0.25 mg PO TID #90 tabs 02/12/23 Allergies Allergy/AdvReac Type Severity Reaction Status Date / Time bee pollen Allergy Anaphylaxis Verified 02/12/23 21:42 Review of Systems Review of Systems: Yes all other systems are reviewed and are negative [facility] Past Medical History Medical History Vertigo Diabetes HTN (hypertension) GERD (gastroesophageal reflux disease) Social History Social History Alcohol intake: former Smoked in Last 30 Days: No Use of substances other than those prescribed or required for medical reasons: No Advance Directives: No Advance Directives Information Provided: No Physical Exam Vital Signs: Vital Signs: Last Vital Signs Temp 97.9 F 02/12/23 21:36 Pulse 106 H 02/12/23 21:36 Resp 20 02/12/23 21:36 BP 152/79 H 02/12/23 21:36 Pulse Ox 98 02/12/23 21:36 O2 Del Method Room Air 02/12/23 21:36 BMI result Body Mass Index 31.4 Appearance: Alert. Oriented X3. No acute distress. Frequent leg movements Eyes: PERRLA, No Nystagmus ENT: Pharynx normal. Oral Mucosa moist right lateral tongue bite+ Neck: Normal inspection. Neck supple. CVS: Normal heart rate and rhythm. Pulses normal. Respiratory: No respiratory distress. Equal air entry bilateral, Abdomen: Soft and nontender. Bowel sounds are present, Skin: Skin warm and dry. Normal skin color. Normal skin turgor. Extremities: No lower extremity edema. No calf tenderness Neuro: Oriented X 3. No motor deficit. No sensory deficit.No cerebellar signs , cranial nerves II-XII intact Medications Administered Discontinued Medications Generic Name Dose Route Start Last Admin Trade Name Tennille PRN Reason Stop Dose Admin Lorazepam 1 mg 02/12/23 21:49 02/12/23 22:46 Lorazepam 2 Mg/Ml Vial IVPUSH 02/12/23 21:50 1 mg ONCE ONE Administration Medical Decision Making Medical Decision Making [facility] Narrative: Patient with abnormal movement disorder/rest leg syndrome involving the mouth this time causing the superficial bite to the tongue no postictal findings no focal weakness noted CT scan of the head is negative labs are stable patient had similar presentation on 02/10 respond to Ativan and today also patient responded to Ativan likely symptoms from rest leg syndrome/abnormal movements with history of alcohol abuse Differential Diagnosis Differential Diagnoses: The differential diagnosis associated with the presentation includes Anxiety/seizure/restless leg syndrome/alcohol withdrawal Admission/Observation Consideration of admission/observation: Escalation of care including admission/observation considered Lab Data [facility] Lab Attestation statement: I reviewed the patient's lab results. 02/12/23 22:22 02/12/23 22:22 Labs: Lab Results 02/12/23 Range/Units 22:22 WBC 12.9 H (4.8-10.8) X10*3/uL RBC 3.77 L (4.20-5.50) X10*6/uL Hgb 11.6 L (12.0-16.0) g/dl Hct 33.1 L (37.0-47.0) % MCV 87.8 (80.0-98.0) fL MCH 30.8 (27.0-33.0) pg MCHC 35.0 (31.0-35.0) g/dl RDW 13.0 (11.0-16.0) % Plt Count 431 H (160-400) X10*3/uL MPV 8.1 L (9.4-12.3) fL Immature Gran % (Auto) 0.4 (0.0-0.4) % Neut % (Auto) 54.2 (45-73) % Lymph % (Auto) 35.0 (20-40) % [place] % (Auto) 7.0 (2-11) % Eos % (Auto) 2.9 (0-4) % Baso % (Auto) 0.5 (0-2) % Lymph # (Auto) 4.5 (1.2-4.9) X10*3/uL [place] # (Auto) 0.9 (0.1-1.2) X10*3/uL Eos # (Auto) 0.4 (0.0-0.4) X10*3/uL Baso # (Auto) 0.1 (0.0-0.2) X10*3/uL Abs Immat Gran (auto) 0.05 H (0.00-0.03) X10*3/uL Absolute Neuts (auto) 7.0 (2.0-8.3) x10*3/uL Absolute Nucleated RBC 0.000 (0.0-0.012) X10*3/uL Nucleated RBC % (auto) 0.0 (0.0-0.2) /100WBC Sodium 137 (135-145) mmol/L Potassium 3.3 (3.3-5.1) mmol/L Chloride 104 (96-108) mmol/L Carbon Dioxide 25 (22-29) mmol/L Anion Gap 11 L (12-20) BUN 7 L (9-16) mg/dL Creatinine 0.71 (0.5-1.4) mg/dL Estim Creat Clear Calc 94.4 Estimated GFR > 60 Random Glucose 105 (60-115) mg/dL Calcium 9.1 (8.4-10.2) mg/dL Magnesium 1.9 (1.6-2.6) mg/dL Total Bilirubin 0.3 (0.0-1.0) mg/dL AST 23 (5-31) U/L ALT 25 (0-31) U/L Alkaline Phosphatase 64 (39-117) U/L Total Creatine Kinase 170 H (26-140) U/L Total Protein 6.4 L (6.5-8.0) g/dL Albumin 3.6 (3.5-5.0) g/dL Ethyl Alcohol < 10 mg/dL Discharge Plan Discharge 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 Will advise to prescribe Ativan 1 mg twice daily as needed Instructions: Restless Legs Syndrome (ED) Additional Instructions: Patient may be given Roprinole for rest leg syndrome and Ativan 1 mg every 8 hours as needed for severe anxiety Follow-up with PCP Prescriptions: New ropinirole 0.25 mg tablet 0.25 mg PO TID Qty: 90 0RF lorazepam [Ativan] 1 mg tablet 1 mg PO TID PRN (Reason: Movement Disorder) Qty: 20 0RF Interventions: ED Discharge Assessment Last Done: 02/13/23 01:52 Discharge Date/Time: 02/13/23 01:53
[2023-02-12 22:26] LABS: MANUAL DIFF FLAG NO
[2023-02-12 22:28] LABS: Basophils Absolute Auto 0.1 X10*3/uL (0.0-0.2); Basophils Percent Auto 0.5 % (0-2); Eosinophils Absolute Auto 0.4 X10*3/uL (0.0-0.4); Eosinophils Percent Auto 2.9 % (0-4); Hematocrit 33.1 % (37.0-47.0); Hemoglobin 11.6 g/dl (12.0-16.0); Imm Gran Abs Auto 0.05 X10*3/uL (0.00-0.03); Imm Gran Pct Auto 0.4 % (0.0-0.4); Lymphocytes Absolute Auto 4.5 X10*3/uL (1.2-4.9); Mean Corpuscular Hemoglobin 30.8 pg (27.0-33.0); Mean Corpuscular Volume 87.8 fL (80.0-98.0); Mean Platelet Volume 8.1 fL (9.4-12.3); Monocytes Absolute Auto 0.9 X10*3/uL (0.1-1.2); Neutrophils Percent Auto 54.2 % (45-73); Platelet Count 431 X10*3/uL (160-400); Red Blood Count 3.77 X10*6/uL (4.20-5.50); White Blood Count 12.9 X10*3/uL (4.8-10.8)
[2023-02-12 22:39] LABS: Ethanol < 10 mg/dL
[2023-02-12 22:42] LABS: Alanine Aminotransferase 25 U/L (0-31); Albumin Level 3.6 g/dL (3.5-5.0); Alkaline Phosphatase 64 U/L (39-117); Anion Gap 11 (12-20); Aspartate Amino Transferase 23 U/L (5-31); Bilirubin Total 0.3 mg/dL (0.0-1.0); Blood Urea Nitrogen 7 mg/dL (9-16); Calcium 9.1 mg/dL (8.4-10.2); Carbon Dioxide 25 mmol/L (22-29); Chloride 104 mmol/L (96-108); Creatinine Clr Calc Pharmacy 94.4; Estimated Glomerular Filt Rate > 60; Glucose Random 105 mg/dL (60-115); Magnesium 1.9 mg/dL (1.6-2.6); Potassium 3.3 mmol/L (3.3-5.1); Sodium 137 mmol/L (135-145); Total Protein 6.4 g/dL (6.5-8.0)
[2023-02-12] MEDS: LORazepam 2 MG/ML VIAL 1 MG IVPUSH (22:46)
--- NOTE | 2023-02-12 22:51 | PC.NURSE ---
late entry- pt biba from [facility] for increasing weakness and tremors. pt reports having hx of cva in december. pt currently has a bilateral leg weakness that she states is her baseline. pt reports increasing anxiety. pt has equal bilateral hand grasps and no facial droop noted. iv established, 20G right ac.
--- NOTE | 2023-02-12 23:52 | PC.NURSE ---
report given to vu mosher RN.
--- NOTE | 2023-02-13 00:05 | MHC.EDTECH ---
Ellen called @ 4 for a BLS transfer back to [facility],ETA 45Mins, SEBAS Aquino made aware
--- NOTE | 2023-02-13 01:52 | PC.NURSE ---
ems at bedside to transport pt back to rehab.
== END 2023-02-13 01:53 | disposition skilled nursing facility (03) ==
PROVIDERS: Emergency Provider Internal Medicine
DX: F44.4 Conversion disorder with motor symptom or deficit (principal); I10 Essential (primary) hypertension; E11.9 Type 2 diabetes mellitus without complications; F41.9 Anxiety disorder, unspecified; F32.A Depression, unspecified; Z79.899 Other long term (current) drug therapy
CPT/HCPCS: 36415; 80053; 80307; 82550; 83735; 85025; 96374; 99284; J2060

== ENCOUNTER 2023-02-14 06:37 | Outpatient (REF) | payer OTHER, SELFPAY ==
[2023-02-14 06:14] LABS: MANUAL DIFF FLAG NO
[2023-02-14 06:54] LABS: Basophils Absolute Auto 0.1 X10*3/uL (0.0-0.2); Basophils Percent Auto 0.7 % (0-2); Eosinophils Absolute Auto 0.5 X10*3/uL (0.0-0.4); Eosinophils Percent Auto 4.2 % (0-4); Hematocrit 33.7 % (37.0-47.0); Hemoglobin 11.2 g/dl (12.0-16.0); Imm Gran Abs Auto 0.04 X10*3/uL (0.00-0.03); Imm Gran Pct Auto 0.4 % (0.0-0.4); Lymphocytes Absolute Auto 3.8 X10*3/uL (1.2-4.9); Lymphocytes Percent Auto 34.5 % (20-40); Mean Corpuscular HGB Conc 33.2 g/dl (31.0-35.0); Mean Corpuscular Hemoglobin 30.4 pg (27.0-33.0); Mean Corpuscular Volume 91.3 fL (80.0-98.0); Mean Platelet Volume 8.6 fL (9.4-12.3); Monocytes Absolute Auto 0.8 X10*3/uL (0.1-1.2); Neutrophils Absolute Auto 5.8 x10*3/uL (2.0-8.3); Neutrophils Percent Auto 53.2 % (45-73); Platelet Count 486 X10*3/uL (160-400); Red Blood Count 3.69 X10*6/uL (4.20-5.50); Red Cell Distribution Width 12.9 % (11.0-16.0); White Blood Count 10.9 X10*3/uL (4.8-10.8)
[2023-02-14 07:15] LABS: Anion Gap 15 (12-20); Blood Urea Nitrogen 8 mg/dL (9-16); Calcium 8.7 mg/dL (8.4-10.2); Carbon Dioxide 22 mmol/L (22-29); Chloride 105 mmol/L (96-108); Estimated Glomerular Filt Rate > 60; Glucose Random 100 mg/dL (60-115); Potassium 3.5 mmol/L (3.3-5.1); Sodium 138 mmol/L (135-145)
== END 2023-02-14 06:38 | disposition home or self-care (01) ==
LOC: HO.MMNH1L 06:37
PROVIDERS: Visit Provider Family Medicine
DX: Z02.2 Encounter for examination for admission to residential institution (principal); E11.9 Type 2 diabetes mellitus without complications; R26.89 Other abnormalities of gait and mobility
CPT/HCPCS: 36415; 80048; 85025

== ENCOUNTER 2023-02-21 06:25 | Outpatient (REF) | payer OTHER, SELFPAY ==
[2023-02-21 06:13] LABS: MANUAL DIFF FLAG NO
[2023-02-21 06:40] LABS: Basophils Absolute Auto 0.1 X10*3/uL (0.0-0.2); Basophils Percent Auto 0.5 % (0-2); Eosinophils Absolute Auto 0.4 X10*3/uL (0.0-0.4); Hematocrit 32.1 % (37.0-47.0); Hemoglobin 10.8 g/dl (12.0-16.0); Imm Gran Abs Auto 0.03 X10*3/uL (0.00-0.03); Imm Gran Pct Auto 0.3 % (0.0-0.4); Lymphocytes Absolute Auto 3.6 X10*3/uL (1.2-4.9); Mean Corpuscular HGB Conc 33.6 g/dl (31.0-35.0); Mean Corpuscular Hemoglobin 30.3 pg (27.0-33.0); Mean Corpuscular Volume 90.2 fL (80.0-98.0); Mean Platelet Volume 8.7 fL (9.4-12.3); Monocytes Absolute Auto 0.8 X10*3/uL (0.1-1.2); Monocytes Percent Auto 7.6 % (2-11); Neutrophils Absolute Auto 5.1 x10*3/uL (2.0-8.3); Neutrophils Percent Auto 51.6 % (45-73); Platelet Count 512 X10*3/uL (160-400); Red Blood Count 3.56 X10*6/uL (4.20-5.50); Red Cell Distribution Width 12.9 % (11.0-16.0)
[2023-02-21 06:59] LABS: Anion Gap 11 (12-20); Blood Urea Nitrogen 9 mg/dL (9-16); Calcium 8.8 mg/dL (8.4-10.2); Carbon Dioxide 25 mmol/L (22-29); Chloride 106 mmol/L (96-108); Estimated Glomerular Filt Rate > 60; Glucose Random 100 mg/dL (60-115); Potassium 3.5 mmol/L (3.3-5.1); Sodium 138 mmol/L (135-145)
== END 2023-02-21 06:26 | disposition home or self-care (01) ==
LOC: HO.MMNH1L 06:25
PROVIDERS: Visit Provider Family Medicine
DX: E11.9 Type 2 diabetes mellitus without complications (principal); R26.81 Unsteadiness on feet
CPT/HCPCS: 36415; 80048; 85025

== ENCOUNTER 2023-02-27 10:51 | Outpatient (REF) | payer OTHER, SELFPAY | END 2023-02-27 10:52 | disposition home or self-care (01) | LOC: HO.MMNH1L 10:51 | PROVIDERS: Visit Provider Family Medicine | DX: Z13.89 Encounter for screening for other disorder (principal) ==

== ENCOUNTER 2023-04-05 15:10 | Emergency (ER) | payer OTHER, SELFPAY ==
--- NOTE | ~2023-04-05 | US_ITS ---
EXAMINATION: US VENOUS ULTRASOUND WITH DOPPLER LOWER EXTREMITY, BILATERAL CLINICAL INFORMATION: swelling COMPARISON: Previous exam January 2023 TECHNIQUE: Ultrasound of the deep veins is performed from the hip to the calf with compression sonography and color and pulse Doppler assessment. Spectral analysis with color-flow imaging is performed. FINDINGS: RIGHT: There is normal venous compression and respiratory variation and augmented flow. The visualized common femoral vein, superficial femoral vein, profunda femoral vein, popliteal vein, and the trifurcation region shows no evidence of deep venous thrombosis. There is no significant popliteal fossa cyst. LEFT: There is normal venous compression and respiratory variation and augmented flow. The visualized common femoral vein, superficial femoral vein, profunda femoral vein, popliteal vein, and the trifurcation region shows no evidence of deep venous thrombosis. There is no significant popliteal fossa cyst. US/US venous duplex LE BI IMPRESSION: No DVT demonstrated in the bilateral lower extremity.
--- NOTE | ~2023-04-05 | XR_ITS ---
EXAMINATION: XR CHEST CLINICAL INFORMATION: Weakness COMPARISON: None available. TECHNIQUE: Frontal view of the chest was obtained. FINDINGS: No significant abnormality is noted involving the heart, lungs, mediastinum, bony thorax or soft tissues. XR/XR chest 1V IMPRESSION: Unremarkable examination.
--- NOTE | ~2023-04-05 | CT_ITS ---
STUDY: Unenhanced CT of the head and cervical spine INDICATION: Change in mental status, neck trauma COMPARISON: 02/10/2023 TECHNIQUE: Continuous helical imaging obtained head and cervical spine without IV contrast. Reconstructed images performed in the coronal and sagittal planes. This CT examination was performed using dose optimization techniques as appropriate, variously including the following: *Automated exposure control *Adjustment of mA and/or kV according to patient size (this includes techniques or standardized protocols for targeted exams where dose is matched to indication/reason for exam; i.e. extremities or head) *Use of iterative reconstruction technique TOTAL EXAM DLP: [phone] brain brain and 368.62 mGy-cm for cervical spine FINDINGS: HEAD: Underlying atrophy and periventricular white matter changes are seen. No intracranial hemorrhage, extra-axial fluid collections, evolving infarcts, mass lesions, mass effect or midline shift seen. Subcentimeter extra-axial right frontal calcified focus likely unchanged meningioma. Bony structures are intact. Punctate hyperdensity identified left parietal soft tissues. Intraorbital structures are unremarkable. Ethmoid sinus disease identified, right greater than left. Remaining sinuses and mastoids are clear. CERVICAL SPINE: Cervical lordotic reversal. Vertebral bodies are maintained in height. C4-C5 and C5-C6 anterior spurring and disc space narrowings. Posterior C5-C6 spur causes impression on the left thecal sac. Left neuroforaminal narrowing identified at same level. No significant spinal canal narrowing. No fracture or traumatic subluxation. Odontoid is intact. Posterior elements are aligned and no prevertebral soft tissue swelling seen. Mild esophageal thickening at the thoracic inlet. Lung apices are clear. Retropharyngeal courses of calcified carotid arteries. Nonspecific bilateral cervical lymph nodes. CT/CT cervical spine wo IV con IMPRESSION: No acute intracranial pathology. Chronic small vessel ischemia and volume loss. Cervical lordotic reversal and cervical spondylosis. No acute cervical fracture or traumatic subluxation. Ethmoid sinus disease.
[2023-04-05 15:23] VITALS: BP 103/39; BP 98/60; PULSE 100; PULSE 105; RESP 18; TEMP 37; O2SAT 97; O2SAT 98; BMI 30.2
--- OUTSIDE RECORDS SUMMARY | 2023-04-05 15:32 | XMS_ITS | Continuity of Care Document ---
Author Name Unknown Organization [facility] Address [address] [place] [address]- Care Team Providers Care Key Punch Operator Name Role Phone Spencer Ramires Primary Care Physician Encounter [facility] Date(s): 03/23/23 - 03/23/[address] [address]- Discharge Disposition: A-D/C Home Attending Physician: Vladimir Moreno MD Admitting Physician: Vladimir Moreno MD Referring Physician: Not on Staff, Referring MD Allergies, Adverse Reactions, Alerts Substance Reaction Severity Status Bee Stings Active Immunizations Given and Recorded Vaccine Date Status Refusal Reason influenza virus vaccine, inactivated 01/06/23 Give n influenza virus vaccine, inactivated 03/12/20 Bakari rded influenza virus vaccine, inactivated 12/20/18 Bakari rded influenza virus vaccine, inactivated 11/09/17 Bakari rded pneumococcal 23-valent vaccine 03/22/19 Recorded Medications amLODIPine 5 mg oral tablet 5 mg, By Mouth, Daily, Refills 0, Maintenance, 01/11/23 15:34:00 EST, Partial fill upon patient request if the prescription is for a schedule II opioid drug. Start Date: 01/11/23 Status: Ordered Aspirin Tablet 81 mg, By Mouth, Daily, [...] opioid drug. 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 Confirmed Active Results Radiology Reports * Exam Date Time Procedure Performing Provider Status 03/23/23 3:[address] Lumbar Spine W/O Contrast Xiao Aguilar; Auth (Verified) Notes: (CT Lumbar Spine W/O Contrast) Reason For Exam: Spine fracture, lumbar, traumatic;Other: RESULT: CT Lumbar Spine W/O Contrast CT Lumbar Spine W/O Contrast Hx of Present Illness: pt arrived from home by ambulance stating since this morning having swellingand pain on feet bilaterally, no appetite,; Reason: Other:; Spine fracture, lumbar, traumatic; Clinical Question(s): Fracture Dislocation CLINICAL QUESTION: Fracture/Dislocation TECHNIQUE: Thin section axial images were acquired through the lumbar spine. Bone and soft tissue algorithms were reconstructed along with coronal and sagittal reformats. Weight-based protocol using automatic tube modulation was used to optimize exposure parameters. CTDIvol Body: 27.22 mGy, DLP Body: 847 mGy*cm. COMPARISON: CT of abdomen and pelvis on 01/05/2023 FINDINGS: Site Medical Director View Findings, Lines and Tubes: None. Spine: No acute fractures or bone lesion. There is a mild anterolisthesis of L4 over L5 without spondylolysis. Mild marginal osteophytes are seen diffusely. L5-S1 level has disc space narrowing, vacuum disc phenomenon and mild degenerative endplate changes. Degenerative facet arthropathy is noted at the lower lumbar spine. Soft tissues: No acute abnormality in the paravertebral soft tissues. Visualized aorta and kidneys appear unremarkable. Status post cholecystectomy. Right adrenal gland contains a 3 cm ovoid nodule. The left adrenal gland contains a 2 cm ovoid nodule. They were present on the prior CT. A nonemergent MRI is recommended if not performed. IMPRESSION: No acute fracture. DJD. Bilateral adrenal nodules are again seen. The preliminary report was given by the [facility]. WSN: [id number] Ordering Physician: Vladimir Moreno Dictated By: Dre Houston MD Dictated Date/Time: 03/23/23 3:06 pm Reviewed By: Dre Houston MD Signed By: Dre Houston MD Signed Date/Time: 03/23/23 3:06 pm Transcribed By: DANITA Transcribed Date/Time: 03/23/23 3:05 pm Vital Signs Most recent to oldest [Reference Range]: 1 2 3 Height 155 cm (03/23/23 4:53 AM) 155 cm (03/23/23 3:07 AM) 155 cm (03/23/23 1:05 AM) Weight 77.2 kg (03/23/23 3:07 AM) 77.2 kg (03/23/23 1:05 AM) 77.2 kg (03/23/23 1:00 AM) Oxygen Saturation [94-100 %] 97 % (03/23/23 4:53 AM) 98 % (03/23/23 3:07 AM) 98 % (03/23/23 1:00 AM) Pulse Rate [55-90 bpm] 84 bpm (03/23/23 4:53 AM) 83 bpm (03/23/23 3:07 AM) 83 bpm (03/23/23 1:00 AM) Body Mass Index [18.5-24.99 kg/m2] 32.13 kg/m2 *>HHI* (03/23/23 3:07 AM) 32.13 kg/m2 *>HHI* (03/23/23 1:00 AM) Blood Pressure [90-138/55-84 mm Hg] 142/78mm Hg *H* (03/23/23 4:53 AM) 134/73mm Hg (03/23/23 3:07 AM) 146/81mm Hg *H* (03/23/23 1:00 AM) Respiratory Rate [16-30 br/min] 12 br/min *L* (03/23/23 4:53 AM) 18 br/min (03/23/23 3:07 AM) 18 br/min (03/23/23 1:00 AM) Temperature [96.8-100.4 DegF] 97.7 DegF (03/23/23 4:53 AM) 97.6 DegF (03/23/23 3:07 AM) 97.8 DegF (03/23/23 1:00 AM) Mode of Delivery (Oxygen) Room air (03/23/23 4:53 AM) Room air (03/23/23 3:07 AM) Room air (03/23/23 1:00 AM) Blood pressure sites Arm, left (03/23/23 4:53 AM) Arm, left (03/23/23 3:07 AM) Arm, left (03/23/23 1:00 AM) Temperature Route Oral (03/23/23 4:53 AM) Oral (03/23/23 3:07 AM) Oral (03/23/23 1:00 AM) Dry Weight 77.2 kg (03/23/23 3:07 AM) 77.2 kg (03/23/23 1:05 AM) 77.2 kg (03/23/23 1:00 AM) Weight Obtained Via Patient/family state d (03/23/23 1:05 AM) Patient/family stated (03/23/23 1:00 AM) Dry Weight Obtained Via Patient/family s tated (03/23/23 1:05 AM) Patient/family stated (03/23/23 1:00 AM) Social History Social History Type Response Tobacco Other: pt quit 4mo a go. Sex Note * Tiffanie TRUJILLO, Vladimir Mckeon: PERFORM Event Display: Patient Education Leaflets Authored Date: [id number] Peripheral Neuropathy ?? [id number] Peripheral Neuropathy Peripheral neuropathy is a set of symptoms caused by damage to the peripheral nerves. These nerves are in parts of the body beyond the brain and spinal cord. The condition often affects the arms or legs. It causes a change in physical feeling. Symptoms include weakness in the muscles, tingling, numbness, or shooting pains. Symptoms may be more common at night. Your skin may be extra sensitive to light touch or temperature changes. Peripheral neuropathy may be caused by: ??? Complications from a chronic disease such as diabetes ??? Infections caused by viruses or bacteria ??? Autoimmune disorders ??? Cancer ??? Chemo medicines to treat cancer ??? Injuries A lack of certain vitamins may also lead to it. It may also be caused by exposure to certain illegal drugs or chemicals. Several forms of neuropathy run in families (hereditary). Home care ??? Tell your healthcare provider about all medicines you take. This includes prescription and orzg-skn-upwlrec medicines, vitamins, and herbs. Ask if any of the medicines may be causing your problems. Don't make any changes to prescription medicines without talking with your healthcare provider first. ??? You may be prescribed medicines to help ease the tingling feeling or for pain. Take all medicines as directed. ??? A numb hand or foot may be more likely to be injured. To help protect it: o Always use oven mitts. o Test water temperature with an unaffected hand or foot. o Use caution when trimming nails. File sharp areas. o Wear shoes that fit well to prevent pressure points, blisters, and ulcers. o Inspect your hands and feet carefully at least once a week. This includes thesoles of your feet and between the toes. If you see red areas, sores, or other problems, tell your healthcare provider. ?? Follow-up care Follow up with your healthcare provider as advised. You may need more testing or assessment. ?? When to seek medical advice Call your healthcare provider right away if any of the following occur: ??? Redness, swelling, cracking, or ulcer on any numb area, especially the feet ??? New symptoms of numbness or muscle weaknessnumbness ??? Loss of bowel or bladder control ??? Slurred speech, confusion, or trouble speaking, walking, or seeing ?? Last Reviewed Date: 2020 ?? [id number] [employer]. All rights reserved. This information is not intended as a substitute for professional medical care. Always follow your healthcare professional's instructions. ?? Patient Care team information Care Team Personnel Name: Spencer Ramires Position: Reference Physician Member Role: PCP Address: Address: [address] [place] [id number] Name: Loretta Wright RN Position: S RN Member Role: Primary Care Nurse Name: Ann Parham MA Position: [facility] RN Member Role: Primary Care Nurse Name: Layne Odonnell Position: [facility] RN Member Role: Primary Care Nurse Name: Angie Vidal RN Position: [facility] RN Member Role: Primary Care Nurse Name: Roshni Lantigua RN Position: [facility] RN Member Role: Primary Care Nurse Name: Safia Umanzor Position: [facility] Outreach Member Role: Lifetime Consulting Physician Care Team Related Persons Name: YINGMITA Jay Address: home [address] [place] [id number]
--- OUTSIDE RECORDS SUMMARY | 2023-04-05 15:32 | XMS_ITS | Continuity of Care Document ---
Author Name Unknown Organization [facility] Address [address] [place] [address]- Care Team Providers Care Fitness Professional Name Role Phone Spencer Ramires Primary Care Physician Encounter [facility] Date(s): 04/01/23 - 04/01/[address] [address]- Discharge Disposition: A-D/C Home Attending Physician: Lee Bryant DO Admitting Physician: Lee Bryant DO Referring Physician: Not on Staff, Referring [...] 2 diabetes mellitus with gastroparesis Confirmed Active Vital Signs Most recent to oldest [Reference Range]: 1 2 3 Height 155 cm (04/01/23 6:07 AM) 155 cm (04/01/23 2:59 AM) 155 cm (04/01/23 1:31 AM) Weight 77.2 kg (04/01/23 1:31 AM) Oxygen Saturation [94-100 %] 98 % (04/01/23 6:07 AM) 100 % (04/01/23 3:00 AM) 100 % (04/01/23 2:59 AM) Pulse Rate [55-90 bpm] 111 bpm *H* (04/01/23 6:07 AM) 107 bpm *H* (04/01/23 3:00 AM) 107 bpm *H* (04/01/23 2:59 AM) Blood Pressure [90-138/55-84 mm Hg] 139/79mm Hg *H* (04/01/23 6:07 AM) 149/83mm Hg *H* (04/01/23 3:00 AM) 149/83mm Hg *H* (04/01/23 2:59 AM) Respiratory Rate [16-30 br/min] 18 br/min (04/01/23 1:35 AM) Temperature [96.8-100.4 DegF] 97.6 DegF (04/01/23 6:07 AM) 97.7 DegF (04/01/23 1:35 AM) Mode of Delivery (Oxygen) Room air (04/01/23 6:07 AM) Room air (04/01/23 3:00 AM) Room air (04/01/23 2:59 AM) Blood pressure sites Arm, left (04/01/23 6:07 AM) Arm, left (04/01/23 3:00 AM) Arm, right (04/01/23 1:35 AM) Temperature Route Oral (04/01/23 6:07 AM) Oral (04/01/23 1:35 AM) Dry Weight 77.2 kg (04/01/23 1:31 AM) Social History Social History Type Response Tobacco Other: pt quit 4mo a go. Sex Patient Care team information Care Team Personnel Name: Spencer Ramires Position: Reference Physician Member Role: PCP Address: Address: [address] [place] [id number] Name: Loretta Wright RN Position: [facility] RN Member Role: Primary Care Nurse Name: Ann Parham MA Position: [facility] RN Member Role: Primary Care Nurse Name: Layne Odonnell Position: [facility] RN Member Role: Primary Care Nurse Name: Angie Vidal RN Position: [facility] RN Member Role: Primary Care Nurse Name: Roshni Lantigua RN Position: [facility] RN Member Role: Primary Care Nurse Name: Safia Umanzor Position: [facility] Outreach Member Role: Lifetime Consulting Physician Care Team Related Persons Name: MITA HAMPTON Address: home [address] [place] [id number]
--- NOTE | 2023-04-05 16:05 | ECG_ITS ---
Test Reason : fall Blood Pressure : / mmHG Vent. Rate : 105 BPM Atrial Rate : 105 BPM P-R Int : 184 ms QRS Dur : 088 ms QT Int : 362 ms P-R-T Axes : 060 -03 009 degrees QTc Int : 478 ms Sinus tachycardia Inferior infarct , age undetermined Cannot rule out Anterior infarct , age undetermined Abnormal ECG No previous ECGs available Referred By: Margo Barrow Electronically Signed By:Yariel Streeter
[2023-04-05 16:28] VITALS: BP 127/76; PULSE 107; RESP 16; TEMP 36.6; O2SAT 98
--- NOTE | 2023-04-05 16:30 | ED_ITS ---
HPI - General Adult General Chief complaint: General Medical Stated complaint: EDEMA UNSTEADY GAIT Time Seen by Provider: 04/05/23 16:01 Source: patient and old records reviewed Mode of arrival: EMS Limitations: no limitations History of Present Illness HPI narrative: 57 yo female with PMH of vertigo, anxiety, depression, HTN, DM, GERD we last saw her in January 2023 for abnormal movements. She does have a prior hx of alcohol use disorder. She is now at home no longer in rehab. She tells me her legs have been swelling for the past week now they are red and hot. She notes she fell yesterday and hit her head on the fireplace but no LOC. She notes she went to [facility] last week and they did US of the legs she was told she didn't have a blood clot. She notes she doesn't feel well and can barely walk. She gets dizzy when she stands. She denies CP/SOB. She feels very weak and tired. She is not drinking. She denies trauma she states her legs are really bothering her. EMS noted she was scattered on their arrival and the patient's living area was disheveled. The patient was confused with the RN but with me she states she is at [place], knows it is 2023 and Waldo Pizarro is the president MD complaint: sick, weakness, dizziness Onset (ago): week(s) (1) Location: lower extremity Radiation: non-radiation Severity: moderate Quality: aching Pain Consistency: constant Relieving factors: rest Exacerbating factors: movement Associated symptoms: fever/chills, loss of appetite, malaise, nausea/vomiting and weakness Treatments prior to arrival: none Related Data Previous Rx's Medication Instructions Recorded lorazepam 1 mg tablet (Ativan) 1 mg PO TID PRN Movement Disorder 02/12/23 #20 tabs ropinirole 0.25 mg tablet 0.25 mg PO TID #90 tabs 02/12/23 cefuroxime axetil 500 mg tablet 500 mg PO BID 7 days #14 tabs 04/05/23 potassium chloride 10 mEq oral 20 meq PO DAILY 5 days #20 ea 04/05/23 packet Allergies Allergy/AdvReac Type Severity Reaction Status Date / Time bee pollen Allergy Anaphylaxis Verified 04/05/23 15:26 Review of Systems 2 Review of Systems: Constitutional : No Fever, pos Chills, pos Fatigue ENT/Mouth : No sore throat, No Rhinorrhea Eyes: No Eye Pain, No Swelling, No Redness Cardiovascular : No Chest Pain, No SOB, No Dyspnea on Exertion Respiratory : No Cough, No Sputum Gastrointestinal : No Nausea, No Vomiting, No Diarrhea, No abdominal Pain Genitourinary : No Dysuria, pos Urinary Frequency, No Hematuria, Musculoskeletal : No joint pain, No Myalgias, No Joint Swelling Skin : No Skin Lesions, pos rash Neuro : pos Weakness, No Numbness, pos Dizziness, noHeadache Psych : No Anxiety/Panic, No Depression Heme/Lymph: No Bruising, No Bleeding,No Lymphadenopathy Endocrine : No Polyuria, No Polydipsia All other systems reviewed and are negative [facility] Past Medical History Attestation statement: The following information was validated with the patient. Source: old records reviewed Medical History Vertigo Diabetes HTN (hypertension) GERD (gastroesophageal reflux disease) Social History Social History (Updated 04/05/23 @ 16:38 by Margo Barrow DO) Alcohol intake: former Patient Tobacco Use Status: Former Tobacco user Advance Directives: No Advance Directives Information Provided: No Physical Exam ED Vital Signs: Vital Signs - 24 hr 04/05/23 15:23 04/05/23 16:28 04/05/23 17:26 Temperature 98.6 F 97.8 F 97.8 F Pulse Rate 105 H 107 H 106 H Respiratory Rate 18 16 15 Blood Pressure 103/39 L 127/76 132/67 Pulse Oximetry 97 98 97 Oxygen Delivery Method Room Air Room Air Room Air BMI result Body Mass Index 30.2 Appearance: Alert. Oriented X3. No acute distress. Eyes: Pupils equal, round and reactive to light. scleral icterus ENT: Pharynx normal. Small contusion anterior forehead on hairline Neck: Normal inspection. Neck supple. CVS: Normal heart rate and rhythm. Pulses normal. Respiratory: No respiratory distress. Breath sounds normal. Abdomen: Soft and nontender. Skin: Skin warm and dry. Normal skin color. Normal skin turgor. Extremities: 1+ pitting edema of the lower legs both ankles - erythema and warmth noted to both feet and dorsum she reports ttp no crepitus or fluctuance felt Neuro: Oriented X 3. No motor deficit. No sensory deficit. Course Course Course Narrative: patient is now alert and oriented x 3 has spoken to me and the hospitalists I do not know if she took medications before or time and fluids improved her but she is coherent and answering questions appropriately. Her timeline is intact. She is refusing to stay and wants to leave AM. Patient is clinically sober, has no significant distracting injury, and they appear to have intact judgement, insight and reason. In my clinical opinion they have medical decision making capacity. Signs and symptoms discussed with patient. They express understanding of signs/symptoms as explained to them and they repeated it back to me. Risks and benefits discussed with patient to include but not limited to , [facility] disability or loss of significant bodily functions. Alternatives to treatment plan discussed and offered. Patient encouraged to return should they change their mind. Close followup strongly encouraged in case they choose not to return. The patient wants leave Against Medical Advise at this time Medications Administered Discontinued Medications Generic Name Dose Route Start Last Admin Trade Name Arsenq PRN Reason Stop Dose Admin Acetaminophen 650 mg 04/05/23 17:22 04/05/23 19:32 Acetaminophen 325 Mg Tablet PO 04/05/23 17:23 650 mg ONCE ONE Administration Albumin Human 100 mls @ 133.333 mls/hr 04/05/23 16:15 04/05/23 18:53 Kedbumin 25 % IV 04/05/23 17:59 Infused Q1H DHRUV Infusion Sodium Chloride 500 mls @ 500 mls/hr 04/05/23 16:15 04/05/23 17:52 Ns IV 04/05/23 17:14 Infused .Q1H DHRUV Infusion Ceftriaxone Sodium 1 gm/ 50 mls @ 100 mls/hr 04/05/23 16:10 04/05/23 19:32 Sodium Chloride IV 04/05/23 16:39 100 mls/hr ONCE ONE Administration Potassium Chloride 40 meq 04/05/23 17:10 04/05/23 17:19 Potassium Chloride Packet 20 Meq Packet PO 04/05/23 17:11 40 meq ONCE ONE Administration Medical Decision Making Medical Decision Making [facility] Narrative: 57 yo female with PMH of vertigo, anxiety, depression, HTN, DM, GERD here with reported malaise, chills, falls - head strike but no LOC, she has possible UTI given urinary frequency she was initially altered but no seizures reported. The patient appears to have delerium on exam she is up and down with her orientation at times and seems okay then is hard to follow at times. She is not the best historian. At this tiem given presentation - labs, cultures, tox panel - CT head/cspine given fall. Start on empiric ceftriaxone for possible UTI/sepsis. BP is soft - IVF and albumin ordered, DVT study ordered for DVT rule out. Differential Diagnosis Differential Diagnoses: The differential diagnosis associated with the presentation includes ETOH use, delerium, dehydration, head injury, UTI, cellulitis, DVT Admission/Observation Consideration of admission/observation: Escalation of care including admission/observation considered given concern for infection and delerium with falls at home and intermittently waxing and waning mentation will admit for encephalopathy Lab Data MDM Lab Attestation statement: I reviewed the patient's lab results. 04/05/23 16:37 04/05/23 16:37 Labs: Lab Results 04/05/23 04/05/23 04/05/23 Range/Units 16:37 17:14 17:26 WBC 13.1 H (4.8-10.8) X10*3/uL RBC 3.91 L (4.20-5.50) X10*6/uL Hgb 11.6 L (12.0-16.0) g/dl Hct 33.8 L (37.0-47.0) % MCV 86.4 (80.0-98.0) fL MCH 29.7 (27.0-33.0) pg MCHC 34.3 (31.0-35.0) g/dl RDW 13.2 (11.0-16.0) % Plt Count 475 H (160-400) X10*3/uL MPV 8.8 L (9.4-12.3) fL Immature Gran % (Auto) 0.3 (0.0-0.4) % Neut % (Auto) 65.5 (45-73) % Lymph % (Auto) 23.3 (20-40) % Barren % (Auto) 6.2 (2-11) % Eos % (Auto) 4.4 H (0-4) % Baso % (Auto) 0.3 (0-2) % Lymph # (Auto) 3.0 (1.2-4.9) X10*3/uL Barren # (Auto) 0.8 (0.1-1.2) X10*3/uL Eos # (Auto) 0.6 H (0.0-0.4) X10*3/uL Baso # (Auto) 0.0 (0.0-0.2) X10*3/uL Abs Immat Gran (auto) 0.04 H (0.00-0.03) X10*3/uL Absolute Neuts (auto) 8.6 H (2.0-8.3) x10*3/uL Absolute Nucleated RBC 0.000 (0.0-0.012) X10*3/uL Nucleated RBC % (auto) 0.0 (0.0-0.2) /100WBC PT 11.2 (11.1-13.3) SEC INR 0.9 (0.9-1.1) Sodium 141 (135-145) mmol/L Potassium 2.9 L* (3.3-5.1) mmol/L Chloride 105 (96-108) mmol/L Carbon Dioxide 28 (22-29) mmol/L Anion Gap 11 L (12-20) BUN 22 H (9-16) mg/dL Creatinine 0.70 (0.5-1.4) mg/dL Estim Creat Clear Calc 80.8 Estimated GFR > 60 POC Glucose 178 H (60-115) mg/dL Random Glucose 133 H (60-115) mg/dL Lactic Acid 1.2 (0.5-2.0) mmol/L Calcium 9.4 D (8.4-10.2) mg/dL Magnesium 1.8 (1.6-2.6) mg/dL Total Bilirubin 0.4 (0.0-1.0) mg/dL Direct Bilirubin 0.2 (0.0-0.5) mg/dL AST 71 H (5-31) U/L ALT 45 H (0-31) U/L Alkaline Phosphatase 88 (39-117) U/L Ammonia 27 (13-55) umol/L Total Creatine Kinase 1299 H (26-140) U/L Troponin I High Sens < 2.7 (<3.5-17.0) ng/L B-Natriuretic Peptide 12 (<100) pg/mL Total Protein 7.4 (6.5-8.0) g/dL Albumin 3.9 (3.5-5.0) g/dL Lipase 25 (8-78) U/L Procalcitonin 0.04 ng/mL Ethyl Alcohol < 10 mg/dL COVID-19 (LIS) Negative (Negative) COVID-19 Clin Com See Note Influenza Type A (RALPH) Negative (Negative) Influenza Type B (RALPH) Negative (Negative) Influenza A & B Note See Note Independent Interpretation I performed an independent interpretation of an: EKG, Plain X-Ray (no consolidation), Ultrasound (no DVT) and CT Scan (normal , no trauma) Interpretation: Rate: 105 Rhythm: sinus tachycardia [place]: left Normal P waves. Normal [place]IT[place]. Normal QRS complex. ST T wave : normal no [place] qTC: 478 prior studies: no acute ischemia The study has been interpreted contemporaneously by me. . Radiology Impression Discussion of test interpretation with radiology: I have reviewed the radiologist's reading. Independent Historian Clinical information obtained from an independent historian. History obtained from or confirmed by: EMS External Record Review External record reviewed: Inpatient record Discharge Plan Discharge Clinical Impression: Acute hypokalemia Rhabdomyolysis Qualifiers: Rhabdomyolysis type: non-traumatic Qualified Code(s): M62.82 - Rhabdomyolysis Elevated WBC count Qualifiers: Leukocytosis type: unspecified Qualified Code(s): D72.829 - Elevated white blood cell count, unspecified Cellulitis Qualifiers: Site of cellulitis: extremity Site of cellulitis of extremity: lower extremity Laterality: unspecified laterality Qualified Code(s): L03.119 - Cellulitis of unspecified part of limb Instructions: Cellulitis (ED), Hypokalemia (ED), Against Medical Advice (ED) Additional Instructions: it was advised that you stay but you declined. this is very serious you could . return for any worsening symptoms or concerns. call your doctor in the morning. Prescriptions: New cefuroxime axetil 500 mg tablet 500 mg PO BID 7 Days Qty: 14 0RF potassium chloride 10 mEq packet 20 meq PO DAILY 5 Days Qty: 20 0RF No Action ropinirole 0.25 mg tablet 0.25 mg PO TID Qty: 90 0RF lorazepam [Ativan] 1 mg tablet 1 mg PO TID PRN (Reason: Movement Disorder) Qty: 20 0RF
[2023-04-05 16:42] LABS: MANUAL DIFF FLAG NO
[2023-04-05 16:44] LABS: Basophils Percent Auto 0.3 % (0-2); Eosinophils Absolute Auto 0.6 X10*3/uL (0.0-0.4); Eosinophils Percent Auto 4.4 % (0-4); Hematocrit 33.8 % (37.0-47.0); Hemoglobin 11.6 g/dl (12.0-16.0); Imm Gran Abs Auto 0.04 X10*3/uL (0.00-0.03); Imm Gran Pct Auto 0.3 % (0.0-0.4); Lymphocytes Percent Auto 23.3 % (20-40); Mean Corpuscular HGB Conc 34.3 g/dl (31.0-35.0); Mean Corpuscular Hemoglobin 29.7 pg (27.0-33.0); Mean Corpuscular Volume 86.4 fL (80.0-98.0); Mean Platelet Volume 8.8 fL (9.4-12.3); Monocytes Absolute Auto 0.8 X10*3/uL (0.1-1.2); Monocytes Percent Auto 6.2 % (2-11); Neutrophils Absolute Auto 8.6 x10*3/uL (2.0-8.3); Neutrophils Percent Auto 65.5 % (45-73); Platelet Count 475 X10*3/uL (160-400); Red Blood Count 3.91 X10*6/uL (4.20-5.50); Red Cell Distribution Width 13.2 % (11.0-16.0); White Blood Count 13.1 X10*3/uL (4.8-10.8)
[2023-04-05] MEDS: 0.9 % Sodium Chloride 500 ML IV (16:45)
[2023-04-05 16:52] LABS: Ammonia 27 umol/L (13-55)
[2023-04-05 16:53] LABS: INTERNATIONAL NORM RATIO 0.9 (0.9-1.1); Prothrombin Time 11.2 SEC (11.1-13.3)
[2023-04-05 16:54] LABS: Lactic Acid 1.2 mmol/L (0.5-2.0)
[2023-04-05 16:57] LABS: Ethanol < 10 mg/dL
[2023-04-05 17:04] LABS: B Type Natriuretic Peptide 12 pg/mL (<100)
[2023-04-05 17:09] LABS: Troponin-I High Sensitivity < 2.7 ng/L (<3.5-17.0)
[2023-04-05 17:11] LABS: Alanine Aminotransferase 45 U/L (0-31); Albumin Level 3.9 g/dL (3.5-5.0); Alkaline Phosphatase 88 U/L (39-117); Anion Gap 11 (12-20); Aspartate Amino Transferase 71 U/L (5-31); Bilirubin Direct 0.2 mg/dL (0.0-0.5); Bilirubin Total 0.4 mg/dL (0.0-1.0); Blood Urea Nitrogen 22 mg/dL (9-16); Calcium 9.4 mg/dL (8.4-10.2); Carbon Dioxide 28 mmol/L (22-29); Chloride 105 mmol/L (96-108); Creatinine Clr Calc Pharmacy 80.8; Estimated Glomerular Filt Rate > 60; Glucose Random 133 mg/dL (60-115); Lipase 25 U/L (8-78); Magnesium 1.8 mg/dL (1.6-2.6); Potassium 2.9 mmol/L (3.3-5.1); Sodium 141 mmol/L (135-145); Total Protein 7.4 g/dL (6.5-8.0)
[2023-04-05 17:18] LABS: Glucose, Whole Blood 178 mg/dL (60-115)
[2023-04-05] MEDS: Potassium Chloride Packet 20 MEQ PACKET 40 MEQ PO (17:19)
[2023-04-05] MEDS: Albumin Human 25 % 100 ML 133.33 ML IV ×2 (17:19→18:03)
[2023-04-05 17:21] LABS: Procalcitonin 0.04 ng/mL
[2023-04-05 17:26] VITALS: BP 132/67; PULSE 106; RESP 15; TEMP 36.6; O2SAT 97
--- NOTE | 2023-04-05 17:29 | MHC.EDTECH ---
PATIENT EKG TAKEN AND WAS READ BY PROVIDER ,2ND SETS OF BLOOD CULTURE DRAWN AND FLU/COVID SWAB COLLECTED ALL SENT TO LAB .
[2023-04-05 17:44] LABS: IDNOW Serial# 152EDE1D
[2023-04-05 17:45] LABS: COVID-19 Test Negative (Negative); IDNOW Serial# 08D9AD1C; Influenza A Negative (Negative); Influenza B2 Negative (Negative)
[2023-04-05] MEDS: cefTRIAXone sodium 1 GM in 0.9 % Sodium Chloride 50 ML IV (19:32)
[2023-04-05] MEDS: Acetaminophen 325 MG TABLET 650 MG PO (19:32)
[2023-04-05 19:57] LABS: Appearance Urine Clear; Color Urine Yellow; Glucose Urine UA Negative (Negative); Leukocyte Esterase Urine Small (1+) (Negative); Nitrite Urine Negative (Negative); Specific Gravity - Urine 1.025 (1.005-1.025); UMIC TRIGGER UACC YES; Urine Blood Trace (Negative); Urine Ketones Trace mg/dL (Negative); Urine Protein Negative (Neg-Trace)
[2023-04-05 20:05] LABS: Amphetamine Screen Urine Not Detected (Not Detect); Barbiturates, Urine Not Detected (Not Detect); Benzodiazepines Screen Urine Not Detected (Not Detect); Cannabinoid Screen Urine Not Detected (Not Detect); Cocaine Screen Urine Not Detected (Not Detect); Fentanyl, urine Not Detected (Not Detect); Opiate Screen Urine Not Detected (Not Detect); Phencyclidine Screen Urine Not Detected (Not Detect)
[2023-04-05 20:42] LABS: Bacteria Urine 3+ (None Seen); Hyaline Casts Urine 0-2 /LPF (0-2); UACC Culture Trigger YES; WBC Urine 0-5 /HPF (0-5)
--- NOTE | 2023-04-05 21:03 | PC.NURSE ---
Pt Leaving AMA, spoke with providers, declined IV fluids and potassium.Pt verbalized understanding of seriousness of her illness and persist that she wants to go home. IV removed, pt brought to waiting room and is calling for transportation.
== END 2023-04-05 21:08 | disposition left against medical advice (07) ==
PROVIDERS: Emergency Provider Emergency Medicine
DX: L03.116 Cellulitis of left lower limb (principal); L03.115 Cellulitis of right lower limb; R60.0 Localized edema; M62.82 Rhabdomyolysis; D72.829 Elevated white blood cell count, unspecified; S00.83XA Contusion of other part of head, initial encounter; W18.39XA Other fall on same level, initial encounter; R42 Dizziness and giddiness; E11.9 Type 2 diabetes mellitus without complications; I10 Essential (primary) hypertension; Z11.52 Encounter for screening for COVID-19; Y93.9 Activity, unspecified; Y92.019 Unspecified place in single-family (private) house as the place of occurrence of the external cause; Y99.9 Unspecified external cause status; Z79.899 Other long term (current) drug therapy
CPT/HCPCS: 70450; 71045; 72125; 80048; 80076; 80307; 81001; 82140; 82550; 82947; 83605; 83690; 83735; 83880; 84145; 84484; 85025; 85610; 87040; 87086; 87502; 87635; 93005; 93970; 96361; 96365; 96367; 99285; J0696; P9047

== ENCOUNTER → 2023-04-05 16:05 | Outpatient (BNV) | payer OTHER, SELFPAY | PROVIDERS: Emergency Provider Emergency Medicine; Visit Provider Internal Medicine Cardiovascular Disease | DX: R00.0 Tachycardia, unspecified (principal); R94.31 Abnormal electrocardiogram [ECG] [EKG] | CPT/HCPCS: 93010 ==

== ENCOUNTER 2023-04-06 12:43 | Inpatient (IN) | payer OTHER, SELFPAY ==
[2023-04-06 13:15] VITALS: BP 119/27; BP 130/68; PULSE 104; PULSE 113; RESP 18; TEMP 36.6; O2SAT 100; O2SAT 98; BMI 33.6
--- NOTE | 2023-04-06 13:20 | ED_ITS ---
HPI - Psych General Chief Complaint: Psychiatric Symptoms Stated Complaint: BEHAVIORAL OUTBURST IN PUBLIC Time Seen by Provider: 04/06/23 13:05 Source: patient Mode of arrival: EMS Limitations: no limitations History of Present Illness HPI Narrative: Patient comes to the emergency room by ambulance. According to EMS, the patient has been acting erratic at the local [employer] store. EMS reports that they were informed that the patient has been coming in and out of the store, wearing 1 sock, in pajamas, buying and returning items and harassing some of the employees. Patient was not violent in any way. 911 was called. Patient is awake, alert and oriented x3. Patient states that she has a date today, planning to celebrate Gutierrez's day with someone from [place]. patient states that she was here yesterday which is true, a CT scan was done, patient states that she was told that her CT was normal. Patient denies being suicidal or homicidal, denies feeling depressed. Related Data Previous Rx's Medication Instructions Recorded lorazepam 1 mg tablet (Ativan) 1 mg PO TID PRN Movement Disorder 02/12/23 #20 tabs ropinirole 0.25 mg tablet 0.25 mg PO TID #90 tabs 02/12/23 cefuroxime axetil 500 mg tablet 500 mg PO BID 7 days #14 tabs 04/05/23 potassium chloride 10 mEq oral 20 meq PO DAILY 5 days #20 ea 04/05/23 packet Allergies Allergy/AdvReac Type Severity Reaction Status Date / Time bee pollen Allergy Anaphylaxis Verified 04/05/23 15:26 Review of Systems 2 Review of Systems: ?Constitutional : No Weight loss, No Fever, No Chills, No Night Sweats, No Fatigue, No Malaise ENT/Mouth : No Hearing loss, No Ear Pain, No Nasal Congestion, No Sinus Pain, No Hoarseness, No sore throat, No Rhinorrhea, No Swallowing Difficulty Eyes: No Eye Pain, No Swelling, No Redness, No Foreign Body, No Discharge, No Vision Changes Cardiovascular : No Chest Pain, No SOB, No Dyspnea on Exertion, No Orthopnea, No Edema, No Palpitations Respiratory : No Cough, No Sputum, No Wheezing, No Smoke Exposure, No Dyspnea Gastrointestinal : No Nausea, No Vomiting, No Diarrhea, No Constipation, No abdominal Pain, No Hematochezia, No Melena Genitourinary : no irregular bleeding, No Dysuria, No Urinary Frequency, No Hematuria, No Urinary Incontinence, No Urgency, No Flank Pain, No Urinary Flow Changes, No Hesitancy Musculoskeletal : No joint pain, No Myalgias, No Joint Swelling Skin : No Skin Lesions, No rash Neuro : No Weakness, No Numbness, No Paresthesias, No Loss of Consciousness, No Dizziness, No Headache Psych :? patient denies anxiety depression, no SI or HI.? Bizarre behavior per paramedics and bystanders Heme/Lymph: No Bruising, No Bleeding,No Lymphadenopathy Endocrine : No Polyuria, No Polydipsia, No Temperature Intolerance PMFSH Past Medical History Medical History Vertigo Diabetes HTN (hypertension) GERD (gastroesophageal reflux disease) Social History Social History (Updated 04/05/23 @ 16:38 by Margo Barrow DO) Alcohol intake: former Patient Tobacco Use Status: Former Tobacco user Smoked in Last 30 Days: No Use of substances other than those prescribed or required for medical reasons: No Advance Directives: No Advance Directives Information Provided: No Physical Exam 2 Vital Signs: Vital Signs: Last Vital Signs Temp 97.8 F 04/06/23 13:23 Pulse 104 H 04/06/23 13:23 Resp 20 04/06/23 16:52 BP 123/47 L 04/06/23 16:52 Pulse Ox 100 04/06/23 13:23 O2 Del Method Room Air 04/06/23 13:23 BMI result Body Mass Index 33.6 Const: Other: Appearance: Alert. Oriented X3. No acute distress. Eyes: Pupils equal, round and reactive to light. ENT: Pharynx normal. Neck: Normal inspection. Neck supple. No lymph nodes noted. No crepitus CVS: Normal heart rate and rhythm. Pulses normal. Normal S1 and S2 Respiratory: No respiratory distress. Breath sounds normal. No Wheezing. No rales Abdomen: Soft and nontender. No rigidity. No distention. Skin: Skin warm and dry. Normal skin color. Normal skin turgor. Extremities: No lower extremity edema. No Lacerations. No Rash Neuro: Oriented X 3. No motor deficit. No sensory deficit. Moving all extremities. No slurred speech. CN 2 through 12 grossly intact. Psych: calm, cooperative, patient is a bit agitated, making bizarre statements Course Course Course Narrative: - patient agreeable to get lab work. - Care team consult pending Medications Administered Discontinued Medications Generic Name Dose Route Start Last Admin Trade Name [place] PRN Reason Stop Dose Admin Acetaminophen 650 mg 04/06/23 13:47 04/06/23 13:55 Acetaminophen 325 Mg Tablet PO 04/06/23 13:48 650 mg ONCE ONE Administration Cefuroxime Axetil 500 mg 04/06/23 15:55 04/06/23 16:02 Cefuroxime Axetil 500 Mg Tablet PO 04/06/23 15:56 500 mg ONCE ONE Administration Lorazepam 1 mg 04/06/23 15:52 04/06/23 16:02 Lorazepam 1 Mg Tablet PO 04/06/23 15:53 1 mg ONCE ONE Administration Medical Decision Making Medical Decision Making [facility] Narrative: - patient's daughter called, patient's daughter is concerned that the patient is acting very erratic, this is not her normal behavior. Patient has no history of psychiatric history. - My interpretation of labs: Hematology and chemistry same as yesterday, no acute abnormalities, baseline. Patient's urinalysis has small amount of trace leukocyte esterase. However, it has a large amount of squamous epithelial cells. Likely contaminant. However, given the patient's recent behavior, we will treat as a UTI. First dose of antibiotic given in the ED. - the care team evaluated the patient: Recommendations are to re-evaluate the patient in the morning of every 16th, and also had a psych consult - the care team evaluated the patient, recommendations, psychiatric consult, unclear if patient has an undiagnosed disorder. At this time, recommendations for a section 12, it is unclear if patient can be safe in the community, seems to have impaired judgment. - Patient became aggressive in the ED, tried to punch people people patient was given IM Haldol, Ativan and Benadryl. - Patient is on a Section 12 weaned to be seen by Psychiatry and re-evaluated by the care team. - Earlier today as mentioned above, the care team spoke with the patient's daughter, who stated that the patient does not seem to be safe at home by herself Differential Diagnosis Differential Diagnoses: The differential diagnosis associated with the presentation includes ( UTI, bizarre behavior, psychosis) Admission/Observation Consideration of admission/observation: Escalation of care including admission/observation considered Lab Data MDM Lab Attestation statement: I reviewed the patient's lab results. 04/06/23 14:35 04/06/23 14:35 Labs: Lab Results 04/06/23 04/06/23 Range/Units 14:13 14:35 WBC 11.3 H (4.8-10.8) X10*3/uL RBC 3.72 L (4.20-5.50) X10*6/uL Hgb 11.2 L (12.0-16.0) g/dl Hct 32.8 L (37.0-47.0) % MCV 88.2 (80.0-98.0) fL MCH 30.1 (27.0-33.0) pg MCHC 34.1 (31.0-35.0) g/dl RDW 13.4 (11.0-16.0) % Plt Count 517 H (160-400) X10*3/uL MPV 8.9 L (9.4-12.3) fL Immature Gran % (Auto) 0.3 (0.0-0.4) % Neut % (Auto) 57.3 (45-73) % Lymph % (Auto) 31.3 (20-40) % [place] % (Auto) 7.0 (2-11) % Eos % (Auto) 3.7 (0-4) % Baso % (Auto) 0.4 (0-2) % Lymph # (Auto) 3.5 (1.2-4.9) X10*3/uL [place] # (Auto) 0.8 (0.1-1.2) X10*3/uL Eos # (Auto) 0.4 (0.0-0.4) X10*3/uL Baso # (Auto) 0.1 (0.0-0.2) X10*3/uL Abs Immat Gran (auto) 0.03 (0.00-0.03) X10*3/uL Absolute Neuts (auto) 6.5 (2.0-8.3) x10*3/uL Absolute Nucleated RBC 0.000 (0.0-0.012) X10*3/uL Nucleated RBC % (auto) 0.0 (0.0-0.2) /100WBC Sodium 142 (135-145) mmol/L Potassium 3.3 (3.3-5.1) mmol/L Chloride 106 (96-108) mmol/L Carbon Dioxide 27 (22-29) mmol/L Anion Gap 12 (12-20) BUN 19 H (9-16) mg/dL Creatinine 0.64 (0.5-1.4) mg/dL Estim Creat Clear Calc 93.3 Estimated GFR > 60 Random Glucose 118 H (60-115) mg/dL Calcium 9.6 (8.4-10.2) mg/dL Total Bilirubin 0.3 (0.0-1.0) mg/dL Direct Bilirubin 0.1 (0.0-0.5) mg/dL AST 44 H (5-31) U/L ALT 42 H (0-31) U/L Alkaline Phosphatase 91 (39-117) U/L Total Protein 7.7 (6.5-8.0) g/dL Albumin 4.4 (3.5-5.0) g/dL Urine Color Yellow Urine Appearance Cloudy Urine pH 5.5 (5.0-9.0) Ur Specific [place] >= 1.030 H (1.005-1.025) Urine Protein Trace (Neg-Trace) mg/dL Urine Glucose (UA) Negative (Negative) mg/dL Urine Ketones Trace (Negative) mg/dL Urine Blood Negative (Negative) Urine Nitrite Negative (Negative) Ur Leukocyte Esterase Small (1+) H (Negative) Urine RBC 0-2 (0-2) /HPF Urine WBC 11-20 H (0-5) /HPF Ur Squamous Epith Cells 11-20 (0-2) /HPF Urine Bacteria 1+ (None Seen) Hyaline Casts 3-5 (0-2) /LPF Urine Opiates Screen Not Detected (Not Detect) Urine Fentanyl Screen Not Detected (Not Detect) Ur Barbiturates Screen Not Detected (Not Detect) Ur Phencyclidine Scrn Not Detected (Not Detect) Ur Amphetamines Screen Not Detected (Not Detect) U Benzodiazepines Scrn Not Detected (Not Detect) Urine Cocaine Screen Not Detected (Not Detect) U Marijuana (THC) Screen Not Detected (Not Detect) Ethyl Alcohol < 10 mg/dL Critical Care Time Critical Care Time Critical Care Time: Yes Total Critical Care Time: 60 Attestation: I have personally provided critical care time. Time includes review of lab data, radiology results, discussion with consultants, and monitoring for potential decompensation. Intervention performed as documented. Discharge Plan Discharge Clinical Impression: Behavioral change, Aggression Prescriptions: No Action ropinirole 0.25 mg tablet 0.25 mg PO TID Qty: 90 0RF lorazepam [Ativan] 1 mg tablet 1 mg PO TID PRN (Reason: Movement Disorder) Qty: 20 0RF cefuroxime axetil 500 mg tablet 500 mg PO BID 7 Days Qty: 14 0RF potassium chloride 10 mEq packet 20 meq PO DAILY 5 Days Qty: 20 0RF Interventions: [place]-Suicide Risk Severity Scale Last Done: 04/06/23 13:23
[2023-04-06 13:23] VITALS: BP 119/27; PULSE 104; RESP 18; TEMP 36.6; O2SAT 100
--- NOTE | 2023-04-06 13:34 | PC.NURSE ---
pt coming to ED via EMS for bizarre behavior in a [employer], staff called. pt was buying and returning things and bothering employees, pt was found in PJs and wearing hospital socks. pt was verbally aggressive per EMS but calmed pt down. pt is alert and oriented, making bizarre statements. breathing even and unlabored, skin warm and dry. pt reports HAIR and feet pain, 5/10. pt denies SI/HI. pt does not know why she is here, insisting she needs to leave due to a lunch date she has.
--- NOTE | 2023-04-06 13:38 | PC.NURSE ---
pt alerted RN that she wet herself, pt changed into hospital attire.
[2023-04-06] MEDS: Acetaminophen 325 MG TABLET 650 MG PO (13:55)
[2023-04-06 14:24] LABS: Appearance Urine Cloudy; Color Urine Yellow; Glucose Urine UA Negative (Negative); Leukocyte Esterase Urine Small (1+) (Negative); Nitrite Urine Negative (Negative); PH 5.5 (5.0-9.0); Specific Gravity - Urine >= 1.030 (1.005-1.025); UMIC TRIGGER UACC YES; Urine Blood Negative (Negative); Urine Ketones Trace mg/dL (Negative); Urine Protein Trace mg/dL (Neg-Trace)
[2023-04-06 14:26] LABS: Bacteria Urine 1+ (None Seen); RBC Urine 0-2 /HPF (0-2); UACC Culture Trigger YES
[2023-04-06 14:30] LABS: Amphetamine Screen Urine Not Detected (Not Detect); Barbiturates, Urine Not Detected (Not Detect); Benzodiazepines Screen Urine Not Detected (Not Detect); Cannabinoid Screen Urine Not Detected (Not Detect); Cocaine Screen Urine Not Detected (Not Detect); Fentanyl, urine Not Detected (Not Detect); Opiate Screen Urine Not Detected (Not Detect); Phencyclidine Screen Urine Not Detected (Not Detect)
[2023-04-06 14:39] LABS: MANUAL DIFF FLAG NO
[2023-04-06 14:43] LABS: Basophils Absolute Auto 0.1 X10*3/uL (0.0-0.2); Basophils Percent Auto 0.4 % (0-2); Eosinophils Absolute Auto 0.4 X10*3/uL (0.0-0.4); Eosinophils Percent Auto 3.7 % (0-4); Hematocrit 32.8 % (37.0-47.0); Hemoglobin 11.2 g/dl (12.0-16.0); Imm Gran Abs Auto 0.03 X10*3/uL (0.00-0.03); Imm Gran Pct Auto 0.3 % (0.0-0.4); Lymphocytes Absolute Auto 3.5 X10*3/uL (1.2-4.9); Lymphocytes Percent Auto 31.3 % (20-40); Mean Corpuscular HGB Conc 34.1 g/dl (31.0-35.0); Mean Corpuscular Hemoglobin 30.1 pg (27.0-33.0); Mean Corpuscular Volume 88.2 fL (80.0-98.0); Mean Platelet Volume 8.9 fL (9.4-12.3); Monocytes Absolute Auto 0.8 X10*3/uL (0.1-1.2); Neutrophils Absolute Auto 6.5 x10*3/uL (2.0-8.3); Neutrophils Percent Auto 57.3 % (45-73); Platelet Count 517 X10*3/uL (160-400); Red Blood Count 3.72 X10*6/uL (4.20-5.50); Red Cell Distribution Width 13.4 % (11.0-16.0); White Blood Count 11.3 X10*3/uL (4.8-10.8)
--- NOTE | 2023-04-06 14:51 | PC.NURSE ---
pts daughter called, asked we call if pt leaves. Ngoc [phone]
[2023-04-06 14:59] LABS: Alanine Aminotransferase 42 U/L (0-31); Albumin Level 4.4 g/dL (3.5-5.0); Alkaline Phosphatase 91 U/L (39-117); Anion Gap 12 (12-20); Aspartate Amino Transferase 44 U/L (5-31); Bilirubin Direct 0.1 mg/dL (0.0-0.5); Bilirubin Total 0.3 mg/dL (0.0-1.0); Blood Urea Nitrogen 19 mg/dL (9-16); Calcium 9.6 mg/dL (8.4-10.2); Carbon Dioxide 27 mmol/L (22-29); Chloride 106 mmol/L (96-108); Creatinine Clr Calc Pharmacy 93.3; Estimated Glomerular Filt Rate > 60; Ethanol < 10 mg/dL; Glucose Random 118 mg/dL (60-115); Potassium 3.3 mmol/L (3.3-5.1); Sodium 142 mmol/L (135-145); Total Protein 7.7 g/dL (6.5-8.0)
[2023-04-06] MEDS: LORazepam 1 MG TABLET PO (16:02)
[2023-04-06] MEDS: cefuroxime axetiL 500 MG TABLET PO (16:02)
--- NOTE | 2023-04-06 16:04 | PC.NURSE ---
pt continues to wander halls, easily redirected. pt medicated per MAR. pt continues to deny SI/HI, reports she is unsure why she is here.
--- NOTE | 2023-04-06 16:46 | PC.NURSE ---
Assumed care of this pt at 1630. Pt brought over to the POD escorted by security and primary RNs.
[2023-04-06 16:52] VITALS: BP 123/47; RESP 20
--- NOTE | 2023-04-06 18:39 | PC.NURSE ---
IM meds not given. pt calm, cooperative sitting on bed talking with staff.
[2023-04-06 22:10] LABS: Glucose, Whole Blood 143 mg/dL (60-115)
--- NOTE | 2023-04-07 02:22 | PC.NURSE ---
Unable to confidently and accurately complete PT med rec. PT is unaware of the medications and/or dosages and some medications she listed did not have current refills.
[2023-04-07 06:14] VITALS: BP 137/82; PULSE 103; RESP 18; TEMP 37.1; O2SAT 98
[2023-04-07] MEDS: Acetaminophen 325 MG TABLET 650 MG PO ×2 (06:35→19:45)
[2023-04-07] MEDS: hydrOXYzine HCL 50 MG TABLET PO (10:38)
--- NOTE | 2023-04-07 11:25 | ECG_ITS ---
Test Reason : check qtc Blood Pressure : / mmHG Vent. Rate : 100 BPM Atrial Rate : 100 BPM P-R Int : 190 ms QRS Dur : 090 ms QT Int : 382 ms P-R-T Axes : 057 008 038 degrees QTc Int : 492 ms Normal sinus rhythm Prolonged QT Abnormal ECG When compared to the previous EKG of QT has lengthened Referred By: Ale Lantigua Electronically Signed By:Yariel Streeter
[2023-04-07 11:50] LABS: COVID-19 Test Negative (Negative); IDNOW Serial# 08D9AD1C
--- NOTE | 2023-04-07 14:21 | PHA.MEDREC ---
Pharmacy Consult ? Medication Reconciliation 800 Pharmacy has completed the medication reconciliation. Patient confirmed medications. Reported that she took both Gabapentin 800mg TID and Fiorecet. . Patient has claim history for gabapentin 400 tid and no recent fills of fiorecet. Left gabapentin on profile as patient say they are taking it and recent fill. Left off fiorecet as no recent fills
--- NOTE | 2023-04-07 15:29 | PC.NURSE ---
Assumed care of patient at 1500, patient is sleeping at this time, respirations even and unlabored, skin pwd, no apparent distress. Plan of care for inpt treatment Sec 12b
[2023-04-07 15:46] LABS: Estimated Average Glucose 123 mg/dL; Hemoglobin A1c % 5.9 % (<6.0)
--- NOTE | 2023-04-07 15:51 | P.HPPS_ITS ---
HPI Date of Service: 04/07/23 Chief Complaint: Disorganized Sources of Information: patient interviewed, chart reviewed and crisis/core team assessment reviewed HPI Subjective Notes: [place] Warning and Section 12B Narrative: Ms. Singh is a 57 year-old woman who was brought via EMS after staff from [employer] called 911 due to pt coming in and out of the store, with only one sock, pajamas, harassing some of the employees. Pt has been here in the ED the day before for medical reasons but she reports she does not remember leaving AMA yesterday. Utox is negative. No prior hx of psychiatric illness other than depression and no prior admission. Pt seen in the ED. Pt reports she was brought here because staff at [employer] is jealous about her because employee had dated her boyfriend. She reports she been doing well. She states the only change in her behavior that she has noticed is that she has more energy and is more happy. When asked about going to a store in [facility] no shoes in the winter, pt reports she was fine and that it was employee who has a personal problem with her. She does report that she was told she left AMA yesterday from ED and had signed a paper which she reports she does not remember. She reports feeling more jumpy, but then states I'm fine. Pt has food all over her room, She comes in and out of the ED, has called [employer] (formerly [employer] [employer]. Past Psychiatric History: Inpt: none OP: none (used to be connected with [facility]) Past trials: ativan, trazodone. 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 Frazier who reviewed head CT and reports this is non significant and not contributory to present symptoms. CBC without leukocitosis. CMP without electrolyte imbalances. renal function stable. [facility] Medical History Vertigo Diabetes HTN (hypertension) GERD (gastroesophageal reflux disease) Family History: none Social History: Pt has . She has 3 daughter. Substance History: Hx of alcohol use up until recent months. Trauma History: not discussed Diagnostics Vital Signs (24Hr): Vital Signs - 24 hr 04/06/23 16:52 04/07/23 06:14 Temperature 98.7 F Pulse Rate 103 H Respiratory Rate 20 18 Blood Pressure 123/47 L 137/82 Pulse Oximetry 98 Oxygen Delivery Method Room Air BMI result Body Mass Index 33.6 Labs 04/06/23 14:35 04/06/23 14:35 Labs: Laboratory Results - last 48 hr 04/06/23 04/06/23 04/06/23 14:13 14:35 22:04 WBC 11.3 H RBC 3.72 L Hgb 11.2 L Hct 32.8 L MCV 88.2 MCH 30.1 MCHC 34.1 RDW 13.4 Plt Count 517 H MPV 8.9 L Immature Gran % (Auto) 0.3 Neut % (Auto) 57.3 Lymph % (Auto) 31.3 [place] % (Auto) 7.0 Eos % (Auto) 3.7 Baso % (Auto) 0.4 Lymph # (Auto) 3.5 [place] # (Auto) 0.8 Eos # (Auto) 0.4 Baso # (Auto) 0.1 Abs Immat Gran (auto) 0.03 Absolute Neuts (auto) 6.5 Absolute Nucleated RBC 0.000 Nucleated RBC % (auto) 0.0 Sodium 142 Potassium 3.3 Chloride 106 Carbon Dioxide 27 Anion Gap 12 BUN 19 H Creatinine 0.64 Estim Creat Clear Calc 93.3 Estimated GFR > 60 POC Glucose 143 H Random Glucose 118 H Estimat Average Glucose 123 Hemoglobin A1c % 5.9 Calcium 9.6 Total Bilirubin 0.3 Direct Bilirubin 0.1 AST 44 H ALT 42 H Alkaline Phosphatase 91 Total Protein 7.7 Albumin 4.4 Urine Color Yellow Urine Appearance Cloudy Urine pH 5.5 Ur Specific [place] >= 1.030 H Urine Protein Trace Urine Glucose (UA) Negative Urine Ketones Trace Urine Blood Negative Urine Nitrite Negative Ur Leukocyte Esterase Small (1+) H Urine RBC 0-2 Urine WBC 11-20 H Ur Squamous Epith Cells 11-20 Urine Bacteria 1+ Hyaline Casts 3-5 Urine Opiates Screen Not Detected Urine Fentanyl Screen Not Detected Ur Barbiturates Screen Not Detected Ur Phencyclidine Scrn Not Detected Ur Amphetamines Screen Not Detected U Benzodiazepines Scrn Not Detected Urine Cocaine Screen Not Detected U Marijuana (THC) Screen Not Detected Ethyl Alcohol < 10 COVID-19 (LIS) COVID-19 Clin Com 04/07/23 11:30 WBC RBC Hgb Hct MCV MCH MCHC RDW Plt Count MPV Immature Gran % (Auto) Neut % (Auto) Lymph % (Auto) [place] % (Auto) Eos % (Auto) Baso % (Auto) Lymph # (Auto) [place] # (Auto) Eos # (Auto) Baso # (Auto) Abs Immat Gran (auto) Absolute Neuts (auto) Absolute Nucleated RBC Nucleated RBC % (auto) Sodium Potassium Chloride Carbon Dioxide Anion Gap BUN Creatinine Estim Creat Clear Calc Estimated GFR POC Glucose Random Glucose Estimat Average Glucose Hemoglobin A1c % Calcium Total Bilirubin Direct Bilirubin AST ALT Alkaline Phosphatase Total Protein Albumin Urine Color Urine Appearance Urine pH Ur Specific [place] Urine Protein Urine Glucose (UA) Urine Ketones Urine Blood Urine Nitrite Ur Leukocyte Esterase Urine RBC Urine WBC Ur Squamous Epith Cells Urine Bacteria Hyaline Casts Urine Opiates Screen Urine Fentanyl Screen Ur Barbiturates Screen Ur Phencyclidine Scrn Ur Amphetamines Screen U Benzodiazepines Scrn Urine Cocaine Screen U Marijuana (THC) Screen Ethyl Alcohol COVID-19 (LIS) Negative COVID-19 Clin Com See Note Meds/Allergies Meds Home Medications Medication Instructions Recorded Confirmed Type pregabalin 100 mg capsule 100 mg PO BID 04/06/23 History trazodone 50 mg tablet 50 mg PO BEDTIME 04/06/23 History albuterol sulfate 90 mcg/actuation 2 puff inhalation Q4H PRN wheezing 04/07/23 History aerosol inhaler amlodipine 10 mg tablet 10 mg PO DAILY 04/07/23 History aspirin 81 mg tablet,delayed 81 mg PO DAILY 04/07/23 History release atorvastatin 40 mg tablet 40 mg PO DAILY 04/07/23 History cyanocobalamin (vitamin B-12) 1,000 mcg PO DAILY 04/07/23 History 1,000 mcg tablet diclofenac sodium 1 % topical gel 4 g topical QID PRN pain 04/07/23 History dulaglutide 0.75 mg/0.5 mL 0.75 mg subcut TU 04/07/23 History subcutaneous pen injector (Trulicity) furosemide 20 mg tablet 20 mg PO DAILY 04/07/23 History gabapentin 400 mg capsule 400 mg PO TID 04/07/23 04/07/23 History hydrochlorothiazide 25 mg tablet 25 mg PO DAILY 04/07/23 History hydroxyzine HCl 25 mg tablet 25 mg PO Q8H PRN anxiety 04/07/23 History ibuprofen 600 mg tablet 600 mg PO Q6H PRN pain 04/07/23 History meclizine 12.5 mg tablet 12.5 mg PO TID PRN vertigo 04/07/23 History metformin 500 mg tablet,extended 1,000 mg PO BID 04/07/23 History release 24 hr metoprolol tartrate 25 mg tablet 25 mg PO DAILY 04/07/23 History omeprazole 40 mg capsule,delayed 40 mg PO QAM 04/07/23 History release ondansetron HCl 4 mg tablet 4 mg PO Q8H PRN nausea 04/07/23 History pyridoxine (vitamin B6) 50 mg 50 mg PO DAILY 04/07/23 History tablet ropinirole 0.25 mg tablet 0.25 mg PO Q8H PRN restless legs 04/07/23 History thiamine HCl (vitamin B1) 100 mg 100 mg PO DAILY 04/07/23 History tablet (Vitamin B-1) Allergies Allergies Allergy/AdvReac Type Severity Reaction Status Date / Time bee pollen Allergy Anaphylaxis Verified 04/05/23 15:26 Mental Status Exam Mental Status Exam Narrative: Appearance: wearing hospital gown, fair hygiene, in NAD Behavior: cooperative Psychomotor: no agitation or retardation noted Speech: clear, normal rate/rhythm/volume, spontaneous TP: mostly linear TC: wanting to go home Mood: good Affect: overly bright SI: denies HI: denies VH/AH: no overt signs, pt denies Delusions: Insight/judgment: impaired x 2. memory/cog: alert, oriented to place, month, year but not situation. pt does report difficult remembering events from yesterday such as signing herself AMA from [facility] ED. Assessment & Plan Assessment & Plan (1) Mood disorder: Status: Acute Code(s): F39 - Unspecified mood [affective] disorder Plan Mrs. Mcghee is a 57 year-old woman who was brought via EMS after police was called due to bizarre behaviors going in and out of [employer] store with one sock only, harrassing some of their employee. Per daughter, pt has not been sleeping, speech has been pressured, at times sentences incomplete or slurring. Pt does have hx of alcohol use which both daughter and pt report stopped a few month ago. She is fully oriented to place, month, year not so much as to situation, as pt reports employee who called police is jealous of her because she suspects dated pt's current boyfriend. Pt notes that she has more energy late and is much happier. She appears to lack insight into how her behaviors are concerning to others. Per daughter, no prior episode like this one nor hx of psychosis or delusions. Her utox is negative. Reviewed medical work up- cbc without leukocitosis, cmp no electrolytes imbalances. 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 Frazier reviewed head CT and reports this is non significant and not contributory to her current presentation. PLAN 1. admit to M5, sect 12b, 15 minutes checks for safety 2. will add prn olanzapine for agitation or schedule, should pt agrees to try medication. 3. obtain collateral information 4. Aftercare planning. Patient educated on: diagnosis and medication risk/benefits Reason for continued inpatient stay Substantial Risk for: inability to function Statement Statement: I have reviewed the history and physical and performed a pertinent examination on my patient. No changes have occurred unless specified. If the History and Physical was not performed prior to admission, the Hospitalist's service will be consulted for completing the admission physical. Time Spent With Patient Time: Total time managing care of this patient today ____ minutes.
[2023-04-07 16:11] LABS: TSH reflex Free T4 3.76 uIU/mL (0.32-4.0)
--- NOTE | 2023-04-07 16:57 | PC.ADMIT ---
Addendum entered by Lynette Mejia RN 04/07/23 17:38: Pt also reports falling and hitting her head several times due to unsteady gait prior to admission, pt is a high fall risk. Original Note: Donna is a 57-year-old female admitted from [facility] to M5 on a 12b for treatment of unspecified bipolar d/o. Tox screen negative. Pt presented to [facility] by EMS secondary to displaying erratic behavior at a local [employer] store and harassing employees. While in the pod, pt presented as delusional, agitated and difficult to reason with. Upon admission to , pt was A&O x4, pleasant, and cooperative. Pt lacks insight into situation and stated I don't know why they brought me here. Pt was tearful at times because my mom just and I've lived with her for the past 24 years. Pt denies alcohol or substance use. Pt reports a 20lb weight loss in the past month due to decreased appetite. Pt also reports difficulty sleeping. Pt arabella hx cardiac issues but has bilateral lower leg edema, MD aware. Pt denies SI/HI/AH/VH but will reach out to staff if thoughts occur. Pt placed on 15 minute safety checks.
[2023-04-07 18:00] VITALS: BP 128/67; PULSE 110; RESP 16; TEMP 36.8; O2SAT 99
[2023-04-07] MEDS: Loperamide HCl 2 MG CAPSULE PO (19:46)
[2023-04-07] MEDS: traZODone HCL 50 MG TABLET PO (20:23)
[2023-04-07] MEDS: clonazePAM 0.5 MG TABLET PO (20:24)
[2023-04-07] MEDS: hydroCHLOROthiazide 25 MG TABLET PO (20:24)
[2023-04-07] MEDS: metFORMIN HCl 1,000 MG TABLET 1000 MG PO (20:24)
[2023-04-07] MEDS: cefuroxime axetiL 500 MG TABLET PO (20:24)
[2023-04-07] MEDS: Atorvastatin Calcium 40 MG TABLET PO (20:24)
[2023-04-07] MEDS: Metoprolol Tartrate 25 MG TABLET PO (20:24)
[2023-04-07] MEDS: Gabapentin 400 MG CAPSULE PO (20:25)
--- NOTE | 2023-04-07 22:37 | PC.NURSE ---
Pt refused flu vaccine, already immunized this season
[2023-04-08] MEDS: Omeprazole 40 MG CAPSULE.DR PO (06:06)
[2023-04-08 08:00] VITALS: BP 136/73; PULSE 99; RESP 15; TEMP 36.3; O2SAT 99
[2023-04-08] MEDS: Metoprolol Tartrate 25 MG TABLET PO (08:20)
[2023-04-08] MEDS: metFORMIN HCl 1,000 MG TABLET 1000 MG PO (08:20)
[2023-04-08] MEDS: Gabapentin 400 MG CAPSULE PO ×3 (08:20→20:27)
[2023-04-08] MEDS: hydroCHLOROthiazide 25 MG TABLET PO (08:20)
[2023-04-08] MEDS: clonazePAM 0.5 MG TABLET PO ×2 (08:21→20:27)
[2023-04-08] MEDS: Potassium Chloride ER 20 MEQ TAB.ER.PRT PO (08:21)
[2023-04-08] MEDS: cefuroxime axetiL 500 MG TABLET PO ×2 (08:21→20:27)
[2023-04-08] MEDS: Aspirin 81 MG TAB.CHEW PO (08:21)
[2023-04-08] MEDS: Furosemide 20 MG TABLET PO (08:21)
[2023-04-08] MEDS: Thiamine HCL 100 MG TABLET PO (08:21)
[2023-04-08] MEDS: Pyridoxine HCl (Vitamin B6) 50 MG TABLET PO (08:21)
[2023-04-08 08:26] LABS: Glucose, Whole Blood 161 mg/dL (60-115)
[2023-04-08 09:07] LABS: Cholesterol 181 mg/dL (<200); HDL Cholesterol 42 mg/dL (>40); LDL Cholesterol Calculated 96 mg/dL (<100); Triglycerides 216 mg/dL (<150)
--- NOTE | 2023-04-08 09:52 | P.PNPSI_ITS ---
Subjective Subjective Date of Service: 04/08/23 Reason For Visit: Disorganized Subjective Notes: Conditional Voluntary Interim History: Patient was seen and discussed in rounds today. Records and plans were reviewed. She is settling into her admission and had several questions about what led to this which I tried to explain to her and she was understanding of it but had her own reasonings. She states that she has been having diarrhea for several days and loperamide was ordered. Current medications reviewed. Labs reviewed. No other changes were made today Medication Compliance: Yes Side effects from medications: No Review of Systems Review of Systems Diarrhea Yes all other systems are reviewed and are negative Mental Status Exam Mental Status Exam Narrative: In today's visit she is alert, oriented and pleasant. Normal speech. Good eye contact. Affect is appropriate and varied. No signs of psychosis. Thought processes are coherent. She had her own explanations for her bizarre behaviors that led to her admission. No SI. No signs of overt hypomania. Judgment is mostly intact Diagnostics Vital Signs (24Hr): Vital Signs - 24 hr 04/07/23 18:00 Temperature 98.3 F Pulse Rate 110 H Respiratory Rate 16 Blood Pressure 128/67 Pulse Oximetry 99 Oxygen Delivery Method Room Air BMI result Body Mass Index 33.6 Labs 04/06/23 14:35 04/06/23 14:35 Labs: Laboratory Results - last 48 hr 04/06/23 04/06/23 04/06/23 14:13 14:35 22:04 WBC 11.3 H RBC 3.72 L Hgb 11.2 L Hct 32.8 L MCV 88.2 MCH 30.1 MCHC 34.1 RDW 13.4 Plt Count 517 H MPV 8.9 L Immature Gran % (Auto) 0.3 Neut % (Auto) 57.3 Lymph % (Auto) 31.3 Blair % (Auto) 7.0 Eos % (Auto) 3.7 Baso % (Auto) 0.4 Lymph # (Auto) 3.5 Blair # (Auto) 0.8 Eos # (Auto) 0.4 Baso # (Auto) 0.1 Abs Immat Gran (auto) 0.03 Absolute Neuts (auto) 6.5 Absolute Nucleated RBC 0.000 Nucleated RBC % (auto) 0.0 Sodium 142 Potassium 3.3 Chloride 106 Carbon Dioxide 27 Anion Gap 12 BUN 19 H Creatinine 0.64 Estim Creat Clear Calc 93.3 Estimated GFR > 60 POC Glucose 143 H Random Glucose 118 H Estimat Average Glucose 123 Hemoglobin A1c % 5.9 Calcium 9.6 Total Bilirubin 0.3 Direct Bilirubin 0.1 AST 44 H ALT 42 H Alkaline Phosphatase 91 Total Protein 7.7 Albumin 4.4 Triglycerides Cholesterol LDL Cholesterol, Calc HDL Cholesterol TSH 3.76 Urine Color Yellow Urine Appearance Cloudy Urine pH 5.5 Ur Specific [place] >= 1.030 H Urine Protein Trace Urine Glucose (UA) Negative Urine Ketones Trace Urine Blood Negative Urine Nitrite Negative Ur Leukocyte Esterase Small (1+) H Urine RBC 0-2 Urine WBC 11-20 H Ur Squamous Epith Cells 11-20 Urine Bacteria 1+ Hyaline Casts 3-5 Urine Opiates Screen Not Detected Urine Fentanyl Screen Not Detected Ur Barbiturates Screen Not Detected Ur Phencyclidine Scrn Not Detected Ur Amphetamines Screen Not Detected U Benzodiazepines Scrn Not Detected Urine Cocaine Screen Not Detected U Marijuana (THC) Screen Not Detected Ethyl Alcohol < 10 COVID-19 (LIS) COVID-19 [facility] Com 04/07/23 04/08/23 04/08/23 11:30 08:22 08:35 WBC RBC Hgb Hct MCV MCH MCHC RDW Plt Count MPV Immature Gran % (Auto) Neut % (Auto) Lymph % (Auto) Blair % (Auto) Eos % (Auto) Baso % (Auto) Lymph # (Auto) Blair # (Auto) Eos # (Auto) Baso # (Auto) Abs Immat Gran (auto) Absolute Neuts (auto) Absolute Nucleated RBC Nucleated RBC % (auto) Sodium Potassium Chloride Carbon Dioxide Anion Gap BUN Creatinine Estim Creat Clear Calc Estimated GFR POC Glucose 161 H Random Glucose Estimat Average Glucose Hemoglobin A1c % Calcium Total Bilirubin Direct Bilirubin AST ALT Alkaline Phosphatase Total Protein Albumin Triglycerides 216 H Cholesterol 181 LDL Cholesterol, Calc 96 HDL Cholesterol 42 TSH Urine Color Urine Appearance Urine pH Ur Specific [place] Urine Protein Urine Glucose (UA) Urine Ketones Urine Blood Urine Nitrite Ur Leukocyte Esterase Urine RBC Urine WBC Ur Squamous Epith Cells Urine Bacteria Hyaline Casts Urine Opiates Screen Urine Fentanyl Screen Ur Barbiturates Screen Ur Phencyclidine Scrn Ur Amphetamines Screen U Benzodiazepines Scrn Urine Cocaine Screen U Marijuana (THC) Screen Ethyl Alcohol COVID-19 (LIS) Negative COVID-19 Clin Com See Note Medications Medications Current Medications Acetaminophen (Acetaminophen 325 Mg Tablet) 650 mg PO Q6H PRN PRN Reason: Headache/Pain Mild Scale (1-3) Last Admin: 04/07/23 19:45 Dose: 650 mg Al Hydroxide/Mg Hydroxide (Magnesium Hydrox/Alum Hydrox 30 Ml Oral.Susp) 30 ml PO Q6H PRN PRN Reason: Heartburn/Nausea Albuterol Sulfate (Albuterol Sulfate 90 Mcg 8 Gm Inhaler) 2 puff INHALE RQ4H PRN PRN Reason: Shortness of Breath Aspirin (Aspirin 81 Mg Tab.Chew) 81 mg PO DAILY [facility] Last Admin: 04/08/23 08:21 Dose: 81 mg Atorvastatin Calcium (Atorvastatin Calcium 40 Mg Tablet) 40 mg PO BEDTIME DHRUV Last Admin: 04/07/23 20:24 Dose: 40 mg Cefuroxime Axetil (Cefuroxime Axetil 500 Mg Tablet) 500 mg PO BID [facility] Stop: 04/13/23 21:01 Last Admin: 04/08/23 08:21 Dose: 500 mg Clonazepam (Clonazepam 0.5 Mg Tablet) 0.5 mg PO BID [facility] Last Admin: 04/08/23 08:21 Dose: 0.5 mg Furosemide (Furosemide 20 Mg Tablet) 20 mg PO DAILY [facility]; Protocol Last Admin: 04/08/23 08:21 Dose: 20 mg Gabapentin (Gabapentin 400 Mg Capsule) 400 mg PO TID [facility] Last Admin: 04/08/23 08:20 Dose: 400 mg Hydrochlorothiazide (Hydrochlorothiazide 25 Mg Tablet) 25 mg PO DAILY [facility]; Protocol Last Admin: 04/08/23 08:20 Dose: 25 mg Loperamide HCl (Loperamide Hcl 2 Mg Capsule) 2 mg PO Q4H PRN PRN Reason: Loose Stool Last Admin: 04/07/23 19:46 Dose: 2 mg Magnesium Hydroxide (Milk Of Magnesia 30 Ml Oral.Susp) 30 ml PO DAILY PRN PRN Reason: Constipation Meclizine HCl (Meclizine Hcl 12.5 Mg Tablet) 12.5 mg PO TID PRN PRN Reason: vertigo Metformin HCl (Metformin Hcl 1,000 Mg Tablet) 1,000 mg PO BIDWM [facility] Last Admin: 04/08/23 08:20 Dose: 1,000 mg Metoprolol Tartrate (Metoprolol Tartrate 25 Mg Tablet) 25 mg PO DAILY [facility]; Protocol Last Admin: 04/08/23 08:20 Dose: 25 mg Nicotine (Nicotine 21 Mg Patch.Td24) 21 mg TRANSDERMA DAILY PRN PRN Reason: smoking cessation Nicotine Polacrilex (Nicotine Polacrilex 2 Mg Gum) 4 mg BUCCAL Q2H PRN PRN Reason: Nicotine Cravings Olanzapine (Olanzapine 5 Mg Tablet) 5 mg PO TID PRN PRN Reason: agitation Omeprazole (Omeprazole 40 Mg Capsule.Dr) 40 mg PO DAILY@0630 [facility] Last Admin: 04/08/23 06:06 Dose: 40 mg Potassium Chloride (Potassium Chloride Er 20 Meq Tab.Er.Prt) 20 meq PO DAILY [facility] Last Admin: 04/08/23 08:21 Dose: 20 meq Pyridoxine HCl (Pyridoxine Hcl (Vitamin B6) 50 Mg Tablet) 50 mg PO DAILY [facility] Last Admin: 04/08/23 08:21 Dose: 50 mg Thiamine HCl (Thiamine Hcl 100 Mg Tablet) 100 mg PO DAILY [facility] Last Admin: 04/08/23 08:21 Dose: 100 mg Trazodone HCl (Trazodone Hcl 50 Mg Tablet) 50 mg PO BEDTIME MRX1 PRN PRN Reason: Insomnia Last Admin: 04/07/23 20:23 Dose: 50 mg Allergies Allergies Allergy/AdvReac Type Severity Reaction Status Date / Time bee pollen Allergy Anaphylaxis Verified 04/05/23 15:26 Assessment & Plan Assessment & Plan (1) Mood disorder: Status: Acute Code(s): F39 - Unspecified mood [affective] disorder Plan Mrs. Mcghee is a 57 year-old woman who was brought via EMS after police was called due to bizarre behaviors going in and out of [employer] with one sock only, harrassing some of their employee. Per daughter, pt has not been sleeping, speech has been pressured, at times sentences incomplete or slurring. Pt does have hx of alcohol use which both daughter and pt report stopped a few month ago. She is fully oriented to place, month, year not so much as to situation, as pt reports employee who called police is jealous of her because she suspects dated pt's current boyfriend. Pt notes that she has more energy late and is much happier. She appears to lack insight into how her behaviors are concerning to others. Per daughter, no prior episode like this one nor hx of psychosis or delusions. Her utox is negative. Reviewed medical work up- cbc without leukocitosis, cmp no electrolytes imbalances. 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 Frazier reviewed head CT and reports this is non significant and not contributory to her current presentation. PLAN 1. admit to M5, sect 12b, 15 minutes checks for safety 2. will add prn olanzapine for agitation or schedule, should pt agrees to try medication. 3. obtain collateral information 4. Aftercare planning. 04/08: Continue current regimen and plans Patient educated on: medication risk/benefits Reason for continued inpatient stay Substantial Risk for: med/psych decompensation Time Spent With Patient Time: Total time managing care of this patient today ____ minutes.
[2023-04-08] MEDS: Loperamide HCl 2 MG CAPSULE PO ×2 (15:16→18:16)
[2023-04-08] MEDS: Acetaminophen 325 MG TABLET 650 MG PO (15:28)
[2023-04-08 17:17] VITALS: BP 133/63; PULSE 106; RESP 15; TEMP 36.4; O2SAT 100
[2023-04-08] MEDS: Ibuprofen 600 MG TABLET PO (18:39)
[2023-04-08] MEDS: Atorvastatin Calcium 40 MG TABLET PO (20:27)
[2023-04-09] MEDS: traZODone HCL 50 MG TABLET PO ×2 (01:39→21:53)
[2023-04-09] MEDS: Ibuprofen 600 MG TABLET PO ×2 (01:40→16:32)
[2023-04-09] MEDS: Loperamide HCl 2 MG CAPSULE PO (01:40)
--- NOTE | 2023-04-09 02:11 | PC.NURSE ---
On initial assessment patient noted with Bilateral lower extremity +3 pitting pedal and ankle edema. Skin pink and warm to touch. Patient denies any numbness and tingling, denies calf pain, cap refill < 2 seconds. Bilateral lower extremities elevated.
[2023-04-09] MEDS: Omeprazole 40 MG CAPSULE.DR PO (06:01)
[2023-04-09] MEDS: Acetaminophen 325 MG TABLET 650 MG PO ×2 (06:55→22:13)
--- NOTE | 2023-04-09 08:04 | P.PNPSI_ITS ---
Subjective Subjective Date of Service: 04/09/23 Reason For Visit: Disorganized Subjective Notes: Conditional Voluntary Interim History: Patient was seen and discussed in rounds today. Records and plans were reviewed. She has been stable and has settled on the unit. She continues to have diarrhea after a day of loperamide treatment which I increased to 4 mg q.6 p.r.n.. She thinks it may be related to her metformin and refused it yesterday. That is a possibility but we will find out. She also has developed lower extremity edema. Hospitalist consult has been placed to address both. No other changes were made. Eating and sleeping adequately. Medication Compliance: Yes Side effects from medications: No Review of Systems Review of Systems Diarrhea and lower extremity edema Yes all other systems are reviewed and are negative Mental Status Exam Mental Status Exam Narrative: In today's visit she is alert, oriented and pleasant. Normal speech. Good eye contact. Affect is appropriate and brighter. No signs of psychosis. Thought processes are coherent. She had her own explanations for her bizarre behaviors that led to her admission. No SI. No signs of overt hypomania. Judgment is mostly intact Diagnostics Vital Signs (24Hr): Vital Signs - 24 hr 04/08/23 17:17 Temperature 97.6 F Pulse Rate 106 H Respiratory Rate 15 Blood Pressure 133/63 Pulse Oximetry 100 Oxygen Delivery Method Room Air BMI result Body Mass Index 33.6 Labs 04/06/23 14:35 04/06/23 14:35 Labs: Laboratory Results - last 48 hr 04/06/23 04/07/23 04/08/23 14:35 11:30 08:22 POC Glucose 161 H Estimat Average Glucose 123 Hemoglobin A1c % 5.9 Triglycerides Cholesterol LDL Cholesterol, Calc HDL Cholesterol TSH 3.76 COVID-19 (LIS) Negative COVID-19 Clin Com See Note 04/08/23 08:35 POC Glucose Estimat Average Glucose Hemoglobin A1c % Triglycerides 216 H Cholesterol 181 LDL Cholesterol, Calc 96 HDL Cholesterol 42 TSH COVID-19 (LIS) COVID-19 Clin Com Medications Medications Current Medications Acetaminophen (Acetaminophen 325 Mg Tablet) 650 mg PO Q6H PRN PRN Reason: Headache/Pain Mild Scale (1-3) Last Admin: 04/09/23 06:55 Dose: 650 mg Al Hydroxide/Mg Hydroxide (Magnesium Hydrox/Alum Hydrox 30 Ml Oral.Susp) 30 ml PO Q6H PRN PRN Reason: Heartburn/Nausea Albuterol Sulfate (Albuterol Sulfate 90 Mcg 8 Gm Inhaler) 2 puff INHALE RQ4H PRN PRN Reason: Shortness of Breath Aspirin (Aspirin 81 Mg Tab.Chew) 81 mg PO DAILY [facility] Last Admin: 04/08/23 08:21 Dose: 81 mg Atorvastatin Calcium (Atorvastatin Calcium 40 Mg Tablet) 40 mg PO BEDTIME [facility] Last Admin: 04/08/23 20:27 Dose: 40 mg Cefuroxime Axetil (Cefuroxime Axetil 500 Mg Tablet) 500 mg PO BID [facility] Stop: 04/13/23 21:01 Last Admin: 04/08/23 20:27 Dose: 500 mg Clonazepam (Clonazepam 0.5 Mg Tablet) 0.5 mg PO BID [facility] Last Admin: 04/08/23 20:27 Dose: 0.5 mg Furosemide (Furosemide 20 Mg Tablet) 20 mg PO DAILY [facility]; Protocol Last Admin: 04/08/23 08:21 Dose: 20 mg Gabapentin (Gabapentin 400 Mg Capsule) 400 mg PO TID [facility] Last Admin: 04/08/23 20:27 Dose: 400 mg Hydrochlorothiazide (Hydrochlorothiazide 25 Mg Tablet) 25 mg PO DAILY [facility]; Protocol Last Admin: 04/08/23 08:20 Dose: 25 mg Ibuprofen (Ibuprofen 600 Mg Tablet) 600 mg PO BID PRN PRN Reason: Pain, Moderate(Pain Scale 4-6) Last Admin: 04/09/23 01:40 Dose: 600 mg Loperamide HCl (Loperamide Hcl 2 Mg Capsule) 2 mg PO Q4H PRN PRN Reason: Loose Stool Last Admin: 04/09/23 01:40 Dose: 2 mg Loperamide HCl (Loperamide Hcl 2 Mg Capsule) 2 mg PO Q6H PRN PRN Reason: Diarrhea Magnesium Hydroxide (Milk Of Magnesia 30 Ml Oral.Susp) 30 ml PO DAILY PRN PRN Reason: Constipation Meclizine HCl (Meclizine Hcl 12.5 Mg Tablet) 12.5 mg PO TID PRN PRN Reason: vertigo Metformin HCl (Metformin Hcl 1,000 Mg Tablet) 1,000 mg PO BIDWM [facility] Last Admin: 04/08/23 18:17 Dose: Not Given Metoprolol Tartrate (Metoprolol Tartrate 25 Mg Tablet) 25 mg PO DAILY [facility]; Protocol Last Admin: 04/08/23 08:20 Dose: 25 mg Nicotine (Nicotine 21 Mg Patch.Td24) 21 mg TRANSDERMA DAILY PRN PRN Reason: smoking cessation Nicotine Polacrilex (Nicotine Polacrilex 2 Mg Gum) 4 mg BUCCAL Q2H PRN PRN Reason: Nicotine Cravings Olanzapine (Olanzapine 5 Mg Tablet) 5 mg PO TID PRN PRN Reason: agitation Omeprazole (Omeprazole 40 Mg Capsule.Dr) 40 mg PO DAILY@0630 [facility] Last Admin: 04/09/23 06:01 Dose: 40 mg Potassium Chloride (Potassium Chloride Er 20 Meq Tab.Er.Prt) 20 meq PO DAILY [facility] Last Admin: 04/08/23 08:21 Dose: 20 meq Pyridoxine HCl (Pyridoxine Hcl (Vitamin B6) 50 Mg Tablet) 50 mg PO DAILY [facility] Last Admin: 04/08/23 08:21 Dose: 50 mg Thiamine HCl (Thiamine Hcl 100 Mg Tablet) 100 mg PO DAILY [facility] Last Admin: 04/08/23 08:21 Dose: 100 mg Trazodone HCl (Trazodone Hcl 50 Mg Tablet) 50 mg PO BEDTIME MRX1 PRN PRN Reason: Insomnia Last Admin: 04/09/23 01:39 Dose: 50 mg Allergies Allergies Allergy/AdvReac Type Severity Reaction Status Date / Time bee pollen Allergy Anaphylaxis Verified 04/05/23 15:26 Assessment & Plan Assessment & Plan (1) Mood disorder: Status: Acute Code(s): F39 - Unspecified mood [affective] disorder Plan Mrs. Mcghee is a 57 year-old woman who was brought via EMS after police was called due to bizarre behaviors going in and out of [employer] store with one sock only, harrassing some of their employee. Per daughter, pt has not been sleeping, speech has been pressured, at times sentences incomplete or slurring. Pt does have hx of alcohol use which both daughter and pt report stopped a few month ago. She is fully oriented to place, month, year not so much as to situation, as pt reports employee who called police is jealous of her because she suspects dated pt's current boyfriend. Pt notes that she has more energy late and is much happier. She appears to lack insight into how her behaviors are concerning to others. Per daughter, no prior episode like this one nor hx of psychosis or delusions. Her utox is negative. Reviewed medical work up- cbc without leukocitosis, cmp no electrolytes imbalances. 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 Frazier reviewed head CT and reports this is non significant and not contributory to her current presentation. PLAN 1. admit to M5, sect 12b, 15 minutes checks for safety 2. will add prn olanzapine for agitation or schedule, should pt agrees to try medication. 3. obtain collateral information 4. Aftercare planning. 04/08: Continue current regimen and plans 04/09: Continue current regimen and plans Patient educated on: medication risk/benefits Reason for continued inpatient stay Substantial Risk for: med/psych decompensation Time Spent With Patient Time: Total time managing care of this patient today ____ minutes.
[2023-04-09 08:43] VITALS: BP 139/69; PULSE 106; RESP 15; TEMP 36.5; O2SAT 100
[2023-04-09] MEDS: Gabapentin 400 MG CAPSULE PO ×3 (08:44→21:48)
[2023-04-09] MEDS: hydroCHLOROthiazide 25 MG TABLET PO (08:44)
[2023-04-09] MEDS: Pyridoxine HCl (Vitamin B6) 50 MG TABLET PO (08:44)
[2023-04-09] MEDS: Aspirin 81 MG TAB.CHEW PO (08:44)
[2023-04-09] MEDS: cefuroxime axetiL 500 MG TABLET PO ×2 (08:44→21:48)
[2023-04-09] MEDS: clonazePAM 0.5 MG TABLET PO ×2 (08:44→21:48)
[2023-04-09] MEDS: metFORMIN HCl 1,000 MG TABLET 1000 MG PO (08:44)
[2023-04-09] MEDS: Metoprolol Tartrate 25 MG TABLET PO (08:44)
[2023-04-09] MEDS: Furosemide 20 MG TABLET PO (08:45)
[2023-04-09] MEDS: Thiamine HCL 100 MG TABLET PO (08:45)
[2023-04-09] MEDS: Potassium Chloride ER 20 MEQ TAB.ER.PRT PO (08:45)
--- NOTE | 2023-04-09 16:58 | PM.EVENT ---
Event Note Date of Service: 04/09/23 Event Note: Pt is a 57-year-old female with a PMH significant for HTN, possible TIA, vertigo, peripheral neuropathy, migraine, anxiety, and bipolar disorder who is seen for bilateral lower leg edema. Pt states she has been experiencing swelling in her feet for the past two years, and has been unable to properly wear shoes during that time. Swelling in legs has been noted for the past 1+ month. Pt was previously at [facility] for rehab and was started on Lasix 20mg p.o. at that time for LLE, though reports she has had no improvement in LLE. Also notes she used to be wheel-chair bound was transitioned to a walker 2 years ago, though says she cannot walk much because it makes her feet feel heavy . Pt denies cough, SOB, or orthopnea. No chest pain/pressure, palpitations. Denies fever, chills, N/V/D, abdominal pain. Pt's workup on 04/05/2022 for CHF and DVT negative: CXR negative for acute cardiopulmonary process including pleural effusions; bilateral lower leg venous duplex negative for DVT; BNP WNL at 12. Upon examination pt has 2+ bilateral pitting edema. No signs of infection, cellulitis, or any wounds. Pt's LLE likely secondary to venous insufficiency and sedentary lifestyle. Pt should use compression stockings, elevate feet while in bed, and ambulate as much as tolerated. Scanning the med rec and current medications, it looks like pt's amlodipine was held and switched to hydrochlorothiazide 25mg daily. Continue this change. Continue home Lasix. Pt should also adhere to a low-salt diet. Thank you for allowing us to participate in the care of this patient. Signing off at this time. Please re-consult if any acute complaints or issues arise. Attending: Dr. Arevalo Time Spent With Patient Time: Total time managing care of this patient today ____ minutes.
[2023-04-09 21:44] VITALS: BP 131/73; PULSE 72; RESP 18; TEMP 36.2; O2SAT 97
[2023-04-09] MEDS: Atorvastatin Calcium 40 MG TABLET PO (21:48)
[2023-04-10] MEDS: traZODone HCL 50 MG TABLET PO ×2 (02:12→21:20)
[2023-04-10] MEDS: Omeprazole 40 MG CAPSULE.DR PO (05:45)
[2023-04-10] MEDS: Ibuprofen 600 MG TABLET PO ×2 (06:39→14:37)
[2023-04-10 07:57] VITALS: BP 106/60; PULSE 101; RESP 16; TEMP 36.2; O2SAT 97
[2023-04-10] MEDS: cefuroxime axetiL 500 MG TABLET PO ×2 (09:08→21:20)
[2023-04-10] MEDS: hydroCHLOROthiazide 25 MG TABLET PO (09:09)
[2023-04-10] MEDS: Gabapentin 400 MG CAPSULE PO ×3 (09:09→21:20)
[2023-04-10] MEDS: Metoprolol Tartrate 25 MG TABLET PO (09:09)
[2023-04-10] MEDS: Thiamine HCL 100 MG TABLET PO (09:10)
[2023-04-10] MEDS: Furosemide 20 MG TABLET PO (09:10)
[2023-04-10] MEDS: Potassium Chloride ER 20 MEQ TAB.ER.PRT PO (09:10)
[2023-04-10] MEDS: clonazePAM 0.5 MG TABLET PO ×2 (09:10→21:20)
[2023-04-10] MEDS: Pyridoxine HCl (Vitamin B6) 50 MG TABLET PO (09:11)
[2023-04-10] MEDS: Aspirin 81 MG TAB.CHEW PO (09:11)
[2023-04-10] MEDS: Acetaminophen 325 MG TABLET 650 MG PO ×2 (09:19→17:28)
--- NOTE | 2023-04-10 12:22 | P.PNPSI_ITS ---
Subjective Subjective Date of Service: 04/10/23 Reason For Visit: Disorganized Subjective Notes: Conditional Voluntary Interim History: Patient was seen and discussed in rounds today. Records and plans were reviewed. She was seen by the hospitalist for lower extremity edema was put on hydrochlorothiazide. It is thought to be vascular in nature with her peripheral, leg pain. The nurses report that her diarrhea has stopped but she states that it has not. She still has medication to use. Eating and sleeping adequately. No bizarre behaviors. She is visible. She is requesting to have her blood sugars checked and that I will order.. Medication Compliance: Yes Side effects from medications: No Review of Systems Review of Systems Lower extremity edema. Lower leg pain and discomfort. Yes all other systems are reviewed and are negative Mental Status Exam Mental Status Exam Narrative: In today's visit she is alert, oriented and pleasant. Normal speech. Good eye contact. Affect is appropriate and brighter. No signs of psychosis. Thought processes are coherent. She had her own explanations for her bizarre behaviors that led to her admission. No SI. No signs of overt hypomania. Judgment is mostly intact Diagnostics Vital Signs (24Hr): Vital Signs - 24 hr 04/09/23 21:44 04/10/23 07:57 Temperature 97.1 F 97.1 F Pulse Rate 72 101 H Respiratory Rate 18 16 Blood Pressure 131/73 106/60 Pulse Oximetry 97 97 Oxygen Delivery Method Room Air Room Air BMI result Body Mass Index 33.6 Labs 04/06/23 14:35 04/06/23 14:35 Medications Medications Current Medications Acetaminophen (Acetaminophen 325 Mg Tablet) 650 mg PO Q6H PRN PRN Reason: Headache/Pain Mild Scale (1-3) Last Admin: 04/10/23 09:19 Dose: 650 mg Al Hydroxide/Mg Hydroxide (Magnesium Hydrox/Alum Hydrox 30 Ml Oral.Susp) 30 ml PO Q6H PRN PRN Reason: Heartburn/Nausea Albuterol Sulfate (Albuterol Sulfate 90 Mcg 8 Gm Inhaler) 2 puff INHALE RQ4H PRN PRN Reason: Shortness of Breath Aspirin (Aspirin 81 Mg Tab.Chew) 81 mg PO DAILY [facility] Last Admin: 04/10/23 09:11 Dose: 81 mg Atorvastatin Calcium (Atorvastatin Calcium 40 Mg Tablet) 40 mg PO BEDTIME [facility] Last Admin: 04/09/23 21:48 Dose: 40 mg Cefuroxime Axetil (Cefuroxime Axetil 500 Mg Tablet) 500 mg PO BID [facility] Stop: 04/13/23 21:01 Last Admin: 04/10/23 09:08 Dose: 500 mg Clonazepam (Clonazepam 0.5 Mg Tablet) 0.5 mg PO BID [facility] Last Admin: 04/10/23 09:10 Dose: 0.5 mg Furosemide (Furosemide 20 Mg Tablet) 20 mg PO DAILY [facility]; Protocol Last Admin: 04/10/23 09:10 Dose: 20 mg Gabapentin (Gabapentin 400 Mg Capsule) 400 mg PO TID [facility] Last Admin: 04/10/23 09:09 Dose: 400 mg Hydrochlorothiazide (Hydrochlorothiazide 25 Mg Tablet) 25 mg PO DAILY [facility]; Protocol Last Admin: 04/10/23 09:09 Dose: 25 mg Ibuprofen (Ibuprofen 600 Mg Tablet) 600 mg PO BID PRN PRN Reason: Pain, Moderate(Pain Scale 4-6) Last Admin: 04/10/23 06:39 Dose: 600 mg Loperamide HCl (Loperamide Hcl 2 Mg Capsule) 4 mg PO Q6H PRN PRN Reason: Diarrhea Magnesium Hydroxide (Milk Of Magnesia 30 Ml Oral.Susp) 30 ml PO DAILY PRN PRN Reason: Constipation Meclizine HCl (Meclizine Hcl 12.5 Mg Tablet) 12.5 mg PO TID PRN PRN Reason: vertigo Metformin HCl (Metformin Hcl 1,000 Mg Tablet) 1,000 mg PO BIDWM [facility] Last Admin: 04/10/23 09:09 Dose: Not Given Metoprolol Tartrate (Metoprolol Tartrate 25 Mg Tablet) 25 mg PO DAILY [facility]; Protocol Last Admin: 04/10/23 09:09 Dose: 25 mg Nicotine (Nicotine 21 Mg Patch.Td24) 21 mg TRANSDERMA DAILY PRN PRN Reason: smoking cessation Nicotine Polacrilex (Nicotine Polacrilex 2 Mg Gum) 4 mg BUCCAL Q2H PRN PRN Reason: Nicotine Cravings Olanzapine (Olanzapine 5 Mg Tablet) 5 mg PO TID PRN PRN Reason: agitation Omeprazole (Omeprazole 40 Mg Capsule.Dr) 40 mg PO DAILY@0630 [facility] Last Admin: 04/10/23 05:45 Dose: 40 mg Potassium Chloride (Potassium Chloride Er 20 Meq Tab.Er.Prt) 20 meq PO DAILY [facility] Last Admin: 04/10/23 09:10 Dose: 20 meq Pyridoxine HCl (Pyridoxine Hcl (Vitamin B6) 50 Mg Tablet) 50 mg PO DAILY [facility] Last Admin: 04/10/23 09:11 Dose: 50 mg Thiamine HCl (Thiamine Hcl 100 Mg Tablet) 100 mg PO DAILY [facility] Last Admin: 04/10/23 09:10 Dose: 100 mg Trazodone HCl (Trazodone Hcl 50 Mg Tablet) 50 mg PO BEDTIME MRX1 PRN PRN Reason: Insomnia Last Admin: 04/10/23 02:12 Dose: 50 mg Allergies Allergies Allergy/AdvReac Type Severity Reaction Status Date / Time bee pollen Allergy Anaphylaxis Verified 04/05/23 15:26 Assessment & Plan Assessment & Plan (1) Mood disorder: Status: Acute Code(s): F39 - Unspecified mood [affective] disorder Plan Mrs. Mcghee is a 57 year-old woman who was brought via EMS after police was called due to bizarre behaviors going in and out of [employer] with one sock only, harrassing some of their employee. Per daughter, pt has not been sleeping, speech has been pressured, at times sentences incomplete or slurring. Pt does have hx of alcohol use which both daughter and pt report stopped a few month ago. She is fully oriented to place, month, year not so much as to situation, as pt reports employee who called police is jealous of her because she suspects dated pt's current boyfriend. Pt notes that she has more energy late and is much happier. She appears to lack insight into how her behaviors are concerning to others. Per daughter, no prior episode like this one nor hx of psychosis or delusions. Her utox is negative. Reviewed medical work up- cbc without leukocitosis, cmp no electrolytes imbalances. 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 Frazier reviewed head CT and reports this is non significant and not contributory to her current presentation. PLAN 1. admit to M5, sect 12b, 15 minutes checks for safety 2. will add prn olanzapine for agitation or schedule, should pt agrees to try medication. 3. obtain collateral information 4. Aftercare planning. 04/08: Continue current regimen and plans 04/09: Continue current regimen and plans 04/10: Continue current plans and regimen Reason for continued inpatient stay Substantial Risk for: med/psych decompensation Time Spent With Patient Time: Total time managing care of this patient today ____ minutes.
[2023-04-10] MEDS: Loperamide HCl 2 MG CAPSULE 4 MG PO (17:28)
[2023-04-10 19:56] VITALS: BP 127/70; PULSE 99; RESP 18; TEMP 36.3; O2SAT 100
[2023-04-10 20:39] LABS: Glucose, Whole Blood 291 mg/dL (60-115)
[2023-04-10] MEDS: Atorvastatin Calcium 40 MG TABLET PO (21:20)
[2023-04-11] MEDS: Acetaminophen 325 MG TABLET 650 MG PO ×3 (02:29→22:41)
[2023-04-11] MEDS: Ibuprofen 600 MG TABLET PO ×3 (02:29→18:55)
[2023-04-11] MEDS: traZODone HCL 50 MG TABLET PO (02:30)
[2023-04-11] MEDS: Omeprazole 40 MG CAPSULE.DR PO (06:40)
[2023-04-11 08:00] VITALS: BP 115/71; PULSE 111; RESP 18; TEMP 36.7; O2SAT 97
[2023-04-11 08:11] LABS: Glucose, Whole Blood 282 mg/dL (60-115)
[2023-04-11] MEDS: Gabapentin 400 MG CAPSULE PO ×3 (08:28→20:52)
[2023-04-11] MEDS: Thiamine HCL 100 MG TABLET PO (08:28)
[2023-04-11] MEDS: Metoprolol Tartrate 25 MG TABLET PO (08:29)
[2023-04-11] MEDS: hydroCHLOROthiazide 25 MG TABLET PO (08:29)
[2023-04-11] MEDS: Furosemide 20 MG TABLET PO (08:29)
[2023-04-11] MEDS: Potassium Chloride ER 20 MEQ TAB.ER.PRT PO (08:29)
[2023-04-11] MEDS: cefuroxime axetiL 500 MG TABLET PO ×2 (08:29→20:52)
[2023-04-11] MEDS: Pyridoxine HCl (Vitamin B6) 50 MG TABLET PO (08:29)
[2023-04-11] MEDS: clonazePAM 0.5 MG TABLET PO ×2 (08:29→20:52)
[2023-04-11] MEDS: Aspirin 81 MG TAB.CHEW PO (08:29)
--- NOTE | 2023-04-11 13:42 | HO.PSYCHPN ---
Subjective Subjective Date of Service: 04/11/23 Reason For Visit: Disorganized Subjective Notes: Section 12B Interim History: Reviewed with Dr. Arias. Pt reports feeling good today; pt stated, I came here because I was yelling at the women at [employer]. Other than that I feel fine. I just want to go back home to my puppy . attending groups. denies SI/HI/VH/AH. Medication Compliance: Yes Side effects from medications: No Attending Groups: Yes Review of Systems Constitutional: Reports as per HPI Eyes: Reports as per HPI Reports as per HPI Cardiovascular: Reports as per HPI Respiratory: Reports as per HPI Gastrointestinal: Reports as per HPI Genitourinary: Reports as per HPI Musculoskeletal: Reports as per HPI Skin/Breast: Reports as per HPI Reports as per HPI Psychiatric: Reports as per HPI Endocrine: Reports as per HPI Hematologic/Lymphatic: Reports as per HPI Allergic/Immunologic: Reports as per HPI Mental Status Exam Mental Status Exam Narrative: Pt is alert and oriented; behavior is cooperative and calm; dressed in casual attire; mood is described as good ; eye contact appropriate; Speech is normal rate, volume and prosody and not pressured; focsued on discharge; denies SI/HI/AH/VH. Diagnostics Vital Signs (24Hr): Vital Signs - 24 hr 04/10/23 19:56 04/11/23 08:00 Temperature 97.3 F 98.1 F Pulse Rate 99 111 H Respiratory Rate 18 18 Blood Pressure 127/70 115/71 Pulse Oximetry 100 97 Oxygen Delivery Method Room Air Room Air BMI result Body Mass Index 33.6 Labs 04/06/23 14:35 04/06/23 14:35 Labs: Laboratory Results - last 48 hr 04/10/23 04/11/23 20:34 08:07 POC Glucose 291 H 282 H Medications Medications Current Medications Acetaminophen (Acetaminophen 325 Mg Tablet) 650 mg PO Q6H PRN PRN Reason: Headache/Pain Mild Scale (1-3) Last Admin: 04/11/23 02:29 Dose: 650 mg Al Hydroxide/Mg Hydroxide (Magnesium Hydrox/Alum Hydrox 30 Ml Oral.Susp) 30 ml PO Q6H PRN PRN Reason: Heartburn/Nausea Albuterol Sulfate (Albuterol Sulfate 90 Mcg 8 Gm Inhaler) 2 puff INHALE RQ4H PRN PRN Reason: Shortness of Breath Aspirin (Aspirin 81 Mg Tab.Chew) 81 mg PO DAILY [facility] Last Admin: 04/11/23 08:29 Dose: 81 mg Atorvastatin Calcium (Atorvastatin Calcium 40 Mg Tablet) 40 mg PO BEDTIME [facility] Last Admin: 04/10/23 21:20 Dose: 40 mg Cefuroxime Axetil (Cefuroxime Axetil 500 Mg Tablet) 500 mg PO BID [facility] Stop: 04/13/23 21:01 Last Admin: 04/11/23 08:29 Dose: 500 mg Clonazepam (Clonazepam 0.5 Mg Tablet) 0.5 mg PO BID [facility] Last Admin: 04/11/23 08:29 Dose: 0.5 mg Furosemide (Furosemide 20 Mg Tablet) 20 mg PO DAILY [facility]; Protocol Last Admin: 04/11/23 08:29 Dose: 20 mg Gabapentin (Gabapentin 400 Mg Capsule) 400 mg PO TID [facility] Last Admin: 04/11/23 08:28 Dose: 400 mg Hydrochlorothiazide (Hydrochlorothiazide 25 Mg Tablet) 25 mg PO DAILY [facility]; Protocol Last Admin: 04/11/23 08:29 Dose: 25 mg Ibuprofen (Ibuprofen 600 Mg Tablet) 600 mg PO BID PRN PRN Reason: Pain, Moderate(Pain Scale 4-6) Last Admin: 04/11/23 12:13 Dose: 600 mg Loperamide HCl (Loperamide Hcl 2 Mg Capsule) 4 mg PO Q6H PRN PRN Reason: Diarrhea Last Admin: 04/10/23 17:28 Dose: 4 mg Magnesium Hydroxide (Milk Of Magnesia 30 Ml Oral.Susp) 30 ml PO DAILY PRN PRN Reason: Constipation Meclizine HCl (Meclizine Hcl 12.5 Mg Tablet) 12.5 mg PO TID PRN PRN Reason: vertigo Metformin HCl (Metformin Hcl 1,000 Mg Tablet) 1,000 mg PO BIDWM [facility] Last Admin: 04/11/23 08:28 Dose: Not Given Metoprolol Tartrate (Metoprolol Tartrate 25 Mg Tablet) 25 mg PO DAILY [facility]; Protocol Last Admin: 04/11/23 08:29 Dose: 25 mg Nicotine (Nicotine 21 Mg Patch.Td24) 21 mg TRANSDERMA DAILY PRN PRN Reason: smoking cessation Nicotine Polacrilex (Nicotine Polacrilex 2 Mg Gum) 4 mg BUCCAL Q2H PRN PRN Reason: Nicotine Cravings Olanzapine (Olanzapine 5 Mg Tablet) 5 mg PO TID PRN PRN Reason: agitation Omeprazole (Omeprazole 40 Mg Tiffany.) 40 mg PO DAILY@0630 [facility] Last Admin: 04/11/23 06:40 Dose: 40 mg Potassium Chloride (Potassium Chloride Er 20 Meq Tab.Er.Prt) 20 meq PO DAILY [facility] Last Admin: 04/11/23 08:29 Dose: 20 meq Pyridoxine HCl (Pyridoxine Hcl (Vitamin B6) 50 Mg Tablet) 50 mg PO DAILY [facility] Last Admin: 04/11/23 08:29 Dose: 50 mg Thiamine HCl (Thiamine Hcl 100 Mg Tablet) 100 mg PO DAILY [facility] Last Admin: 04/11/23 08:28 Dose: 100 mg Trazodone HCl (Trazodone Hcl 50 Mg Tablet) 50 mg PO BEDTIME MRX1 PRN PRN Reason: Insomnia Last Admin: 04/11/23 02:30 Dose: 50 mg Allergies Allergies Allergy/AdvReac Type Severity Reaction Status Date / Time bee pollen Allergy Anaphylaxis Verified 04/05/23 15:26 Assessment & Plan Assessment & Plan (1) Mood disorder: Status: Acute Code(s): F39 - Unspecified mood [affective] disorder Plan Mrs. Mcghee is a 57 year-old woman who was brought via EMS after police was called due to bizarre behaviors going in and out of [employer] with one sock only, harrassing some of their employee. Per daughter, pt has not been sleeping, speech has been pressured, at times sentences incomplete or slurring. Pt does have hx of alcohol use which both daughter and pt report stopped a few month ago. She is fully oriented to place, month, year not so much as to situation, as pt reports employee who called police is jealous of her because she suspects dated pt's current boyfriend. Pt notes that she has more energy late and is much happier. She appears to lack insight into how her behaviors are concerning to others. Per daughter, no prior episode like this one nor hx of psychosis or delusions. Her utox is negative. Reviewed medical work up- cbc without leukocitosis, cmp no electrolytes imbalances. 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 Frazier reviewed head CT and reports this is non significant and not contributory to her current presentation. PLAN 1. admit to M5, sect 12b, 15 minutes checks for safety 2. will add prn olanzapine for agitation or schedule, should pt agrees to try medication. 3. obtain collateral information 4. Aftercare planning. 04/08: Continue current regimen and plans 04/09: Continue current regimen and plans 04/10: Continue current plans and regimen 04/11: Pt reports feeling good today; pt stated, I came here because I was yelling at the women at [employer]. Other than that I feel fine. I just want to go back home to my puppy . attending groups. denies SI/HI/VH/AH. Continue current tx plan. Patient educated on: medication risk/benefits and therapeutic strategies Informed Consent: understands Reason for continued inpatient stay Substantial Risk for: med/psych decompensation Time Spent With Patient Time: Total time managing care of this patient today _20___ minutes.
--- NOTE | 2023-04-11 14:41 | MHC.CLN ---
NUTRITION CONSULT FOR 20# WEIGHT LOSS PER PATIENT. REVIEW OF WEIGHT HX SHOWS: 04/06/23=80.7 KG; 04/05/23=72.575 KG; 02/12/23=85.7 KG; 02/10/23=84.4 KG. ERROR IN EITHER OF 2 MOST RECENT WEIGHTS. IF WEIGHT=80.7 KG, SHOW 11#, -5.8% WEIGHT LOSS X 2 MONTHS. WEIGHT LOSS NOT SIGNIFICANT. PATIENT WITH +3 BILATERAL PEDAL/ANKLE EDEMA. PA REC 04/09/23 FOR LOW SODIUM DIET. ENCOURAGE LOWER SODIUM FOODS ABLE. NO ADDITIONAL NUTRITION INTERVENTIONS AT THIS TIME.
[2023-04-11 18:00] VITALS: BP 111/55; PULSE 100; RESP 18; TEMP 36.2; O2SAT 99
[2023-04-11] MEDS: Atorvastatin Calcium 40 MG TABLET PO (20:52)
[2023-04-11 21:03] LABS: Glucose, Whole Blood 224 mg/dL (60-115)
[2023-04-12] MEDS: traZODone HCL 50 MG TABLET PO ×2 (00:50→20:52)
[2023-04-12] MEDS: Ibuprofen 600 MG TABLET PO ×3 (06:03→21:11)
[2023-04-12] MEDS: Omeprazole 40 MG CAPSULE.DR PO (06:03)
[2023-04-12 08:04] VITALS: BP 151/65; PULSE 105; RESP 16; TEMP 36.3; O2SAT 100
[2023-04-12] MEDS: Gabapentin 400 MG CAPSULE PO ×3 (08:17→20:43)
[2023-04-12] MEDS: Aspirin 81 MG TAB.CHEW PO (08:18)
[2023-04-12] MEDS: hydroCHLOROthiazide 25 MG TABLET PO (08:18)
[2023-04-12] MEDS: cefuroxime axetiL 500 MG TABLET PO ×2 (08:18→20:44)
[2023-04-12] MEDS: Pyridoxine HCl (Vitamin B6) 50 MG TABLET PO (08:19)
[2023-04-12] MEDS: Metoprolol Tartrate 25 MG TABLET PO (08:19)
[2023-04-12] MEDS: Furosemide 20 MG TABLET PO (08:19)
[2023-04-12] MEDS: Thiamine HCL 100 MG TABLET PO (08:19)
[2023-04-12] MEDS: clonazePAM 0.5 MG TABLET PO ×2 (08:20→20:52)
[2023-04-12] MEDS: Potassium Chloride ER 20 MEQ TAB.ER.PRT PO (08:20)
[2023-04-12 08:48] LABS: Glucose, Whole Blood 251 mg/dL (60-115)
[2023-04-12 08:54] LABS: Creatinine Clr Calc Pharmacy 85.3; Estimated Glomerular Filt Rate > 60
--- NOTE | 2023-04-12 08:58 | HO.PSYCHPN ---
Subjective Subjective Date of Service: 04/12/23 Reason For Visit: Disorganized Subjective Notes: Section 12B Interim History: Reviewed with Dr. Arias. Pt reports feeling good today; pt stated, I'm doing good. I don't need to be here. I just got into an argument with my boyfriends ex. I have a visiting nurse that comes to my place twice a day . attending groups. denies SI/HI/VH/AH. 12b due tomorrow. Medication Compliance: Yes Side effects from medications: No Attending Groups: Yes Review of Systems Constitutional: Reports as per HPI Eyes: Reports as per HPI Reports as per HPI Cardiovascular: Reports as per HPI Respiratory: Reports as per HPI Gastrointestinal: Reports as per HPI Musculoskeletal: Reports as per HPI Skin/Breast: Reports as per HPI Reports as per HPI Psychiatric: Reports as per HPI Endocrine: Reports as per HPI Hematologic/Lymphatic: Reports as per HPI Allergic/Immunologic: Reports as per HPI Mental Status Exam Mental Status Exam Narrative: Pt is alert and oriented; behavior is cooperative and calm; dressed in casual attire; mood is described as good ; eye contact appropriate; Speech is normal rate, volume and prosody and not pressured; focused on discharge; denies SI/HI/AH/VH. Diagnostics Vital Signs (24Hr): Vital Signs - 24 hr 04/11/23 18:00 04/12/23 08:04 Temperature 97.2 F 97.3 F Pulse Rate 100 105 H Respiratory Rate 18 16 Blood Pressure 111/55 L 151/65 H Pulse Oximetry 99 100 Oxygen Delivery Method Room Air Room Air BMI result Body Mass Index 33.6 Labs 04/06/23 14:35 04/12/23 08:34 Labs: Laboratory Results - last 48 hr 04/10/23 04/11/23 04/11/23 20:34 08:07 20:57 Creatinine Estim Creat Clear Calc Estimated GFR POC Glucose 291 H 282 H 224 H 04/12/23 04/12/23 08:34 08:44 Creatinine 0.70 Estim Creat Clear Calc 85.3 Estimated GFR > 60 POC Glucose 251 H Medications Medications Current Medications Acetaminophen (Acetaminophen 325 Mg Tablet) 650 mg PO Q6H PRN PRN Reason: Headache/Pain Mild Scale (1-3) Last Admin: 04/11/23 22:41 Dose: 650 mg Al Hydroxide/Mg Hydroxide (Magnesium Hydrox/Alum Hydrox 30 Ml Oral.Susp) 30 ml PO Q6H PRN PRN Reason: Heartburn/Nausea Albuterol Sulfate (Albuterol Sulfate 90 Mcg 8 Gm Inhaler) 2 puff INHALE RQ4H PRN PRN Reason: Shortness of Breath Aspirin (Aspirin 81 Mg Tab.Chew) 81 mg PO DAILY [facility] Last Admin: 04/12/23 08:18 Dose: 81 mg Atorvastatin Calcium (Atorvastatin Calcium 40 Mg Tablet) 40 mg PO BEDTIME [facility] Last Admin: 04/11/23 20:52 Dose: 40 mg Cefuroxime Axetil (Cefuroxime Axetil 500 Mg Tablet) 500 mg PO BID [facility] Stop: 04/13/23 21:01 Last Admin: 04/12/23 08:18 Dose: 500 mg Clonazepam (Clonazepam 0.5 Mg Tablet) 0.5 mg PO BID [facility] Last Admin: 04/12/23 08:20 Dose: 0.5 mg Furosemide (Furosemide 20 Mg Tablet) 20 mg PO DAILY [facility]; Protocol Last Admin: 04/12/23 08:19 Dose: 20 mg Gabapentin (Gabapentin 400 Mg Capsule) 400 mg PO TID [facility] Last Admin: 04/12/23 08:17 Dose: 400 mg Hydrochlorothiazide (Hydrochlorothiazide 25 Mg Tablet) 25 mg PO DAILY [facility]; Protocol Last Admin: 04/12/23 08:18 Dose: 25 mg Ibuprofen (Ibuprofen 600 Mg Tablet) 600 mg PO BID PRN PRN Reason: Pain, Moderate(Pain Scale 4-6) Last Admin: 04/12/23 06:03 Dose: 600 mg Loperamide HCl (Loperamide Hcl 2 Mg Capsule) 4 mg PO Q6H PRN PRN Reason: Diarrhea Last Admin: 04/10/23 17:28 Dose: 4 mg Magnesium Hydroxide (Milk Of Magnesia 30 Ml Oral.Susp) 30 ml PO DAILY PRN PRN Reason: Constipation Meclizine HCl (Meclizine Hcl 12.5 Mg Tablet) 12.5 mg PO TID PRN PRN Reason: vertigo Metformin HCl (Metformin Hcl 1,000 Mg Tablet) 1,000 mg PO BIDWM [facility] Last Admin: 04/12/23 08:22 Dose: Not Given Metoprolol Tartrate (Metoprolol Tartrate 25 Mg Tablet) 25 mg PO DAILY [facility]; Protocol Last Admin: 04/12/23 08:19 Dose: 25 mg Nicotine (Nicotine 21 Mg Patch.Td24) 21 mg TRANSDERMA DAILY PRN PRN Reason: smoking cessation Nicotine Polacrilex (Nicotine Polacrilex 2 Mg Gum) 4 mg BUCCAL Q2H PRN PRN Reason: Nicotine Cravings Olanzapine (Olanzapine 5 Mg Tablet) 5 mg PO TID PRN PRN Reason: agitation Omeprazole (Omeprazole 40 Mg Capsule.Dr) 40 mg PO DAILY@0630 [facility] Last Admin: 04/12/23 06:03 Dose: 40 mg Potassium Chloride (Potassium Chloride Er 20 Meq Tab.Er.Prt) 20 meq PO DAILY [facility] Last Admin: 04/12/23 08:20 Dose: 20 meq Pyridoxine HCl (Pyridoxine Hcl (Vitamin B6) 50 Mg Tablet) 50 mg PO DAILY [facility] Last Admin: 04/12/23 08:19 Dose: 50 mg Thiamine HCl (Thiamine Hcl 100 Mg Tablet) 100 mg PO DAILY [facility] Last Admin: 04/12/23 08:19 Dose: 100 mg Trazodone HCl (Trazodone Hcl 50 Mg Tablet) 50 mg PO BEDTIME MRX1 PRN PRN Reason: Insomnia Last Admin: 04/12/23 00:50 Dose: 50 mg Allergies Allergies Allergy/AdvReac Type Severity Reaction Status Date / Time bee pollen Allergy Anaphylaxis Verified 04/05/23 15:26 Assessment & Plan Assessment & Plan (1) Mood disorder: Status: Acute Code(s): F39 - Unspecified mood [affective] disorder Plan Mrs. Mcghee is a 57 year-old woman who was brought via EMS after police was called due to bizarre behaviors going in and out of [employer] with one sock only, harrassing some of their employee. Per daughter, pt has not been sleeping, speech has been pressured, at times sentences incomplete or slurring. Pt does have hx of alcohol use which both daughter and pt report stopped a few month ago. She is fully oriented to place, month, year not so much as to situation, as pt reports employee who called police is jealous of her because she suspects dated pt's current boyfriend. Pt notes that she has more energy late and is much happier. She appears to lack insight into how her behaviors are concerning to others. Per daughter, no prior episode like this one nor hx of psychosis or delusions. Her utox is negative. Reviewed medical work up- cbc without leukocitosis, cmp no electrolytes imbalances. 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 Frazier reviewed head CT and reports this is non significant and not contributory to her current presentation. PLAN 1. admit to M5, sect 12b, 15 minutes checks for safety 2. will add prn olanzapine for agitation or schedule, should pt agrees to try medication. 3. obtain collateral information 4. Aftercare planning. 04/08: Continue current regimen and plans 04/09: Continue current regimen and plans 04/10: Continue current plans and regimen 04/11: Pt reports feeling good today; pt stated, I came here because I was yelling at the women at [employer]. Other than that I feel fine. I just want to go back home to my puppy . attending groups. denies SI/HI/VH/AH. Continue current tx plan. 04/12: continue current tx plan. Patient educated on: diagnosis, medication risk/benefits and therapeutic strategies Informed Consent: understands Reason for continued inpatient stay Substantial Risk for: med/psych decompensation Time Spent With Patient Time: Total time managing care of this patient today _20___ minutes.
[2023-04-12] MEDS: Acetaminophen 325 MG TABLET 650 MG PO ×2 (09:07→16:51)
[2023-04-12 17:41] LABS: Glucose, Whole Blood 262 mg/dL (60-115)
[2023-04-12 18:25] VITALS: BP 128/69; PULSE 102; RESP 16; TEMP 37.1; O2SAT 99
[2023-04-12] MEDS: Atorvastatin Calcium 40 MG TABLET PO (20:44)
[2023-04-12 22:05] LABS: Glucose, Whole Blood 265 mg/dL (60-115)
[2023-04-13] MEDS: traZODone HCL 50 MG TABLET PO (01:45)
[2023-04-13] MEDS: Acetaminophen 325 MG TABLET 650 MG PO ×2 (01:59→11:30)
[2023-04-13] MEDS: Omeprazole 40 MG CAPSULE.DR PO (05:53)
[2023-04-13] MEDS: Ibuprofen 600 MG TABLET PO (06:28)
[2023-04-13 07:52] VITALS: BP 140/89; PULSE 100; RESP 18; TEMP 36.3; O2SAT 100
[2023-04-13] MEDS: hydroCHLOROthiazide 25 MG TABLET PO (08:35)
[2023-04-13] MEDS: clonazePAM 0.5 MG TABLET PO (08:35)
[2023-04-13] MEDS: Thiamine HCL 100 MG TABLET PO (08:35)
[2023-04-13] MEDS: Aspirin 81 MG TAB.CHEW PO (08:35)
[2023-04-13] MEDS: Furosemide 20 MG TABLET PO (08:35)
[2023-04-13] MEDS: Metoprolol Tartrate 25 MG TABLET PO (08:35)
[2023-04-13] MEDS: Potassium Chloride ER 20 MEQ TAB.ER.PRT PO (08:36)
[2023-04-13] MEDS: Gabapentin 400 MG CAPSULE PO (08:36)
[2023-04-13] MEDS: Pyridoxine HCl (Vitamin B6) 50 MG TABLET PO (08:36)
[2023-04-13] MEDS: cefuroxime axetiL 500 MG TABLET PO (08:36)
[2023-04-13 08:55] LABS: Glucose, Whole Blood 202 mg/dL (60-115)
--- NOTE | 2023-04-13 11:19 | P.DS_ITS ---
DS: Providers Provider Date of Service: 04/13/23 Date of admission: 04/07/23 15:08 Date of discharge: 04/13/23 Primary care physician: Unknown Physician Attending physician on admission: Nj Mas Consults: 04/09/23 06:57 Consult to Hospitalist Routine Comment: Consulting Provider: Hospitalist Reason For Exam: BLE +3 pedal and ankle edema Attending physician on discharge: Nj Mas Discharging clinician: Tika Diaz DS: Diagnosis Discharge Diagnosis (1) Mood disorder: Start date: 04/13/23 Start time: 10:00 Status: Acute DS: Medications Discharge Medications Home Medications: Home Medications Medication Instructions Recorded Confirmed pregabalin 100 mg capsule 100 mg PO BID 04/06/23 04/07/23 trazodone 50 mg tablet 50 mg PO BEDTIME 04/06/23 04/07/23 albuterol sulfate 90 mcg/actuation 2 puff inhalation Q4H PRN wheezing 04/07/23 04/07/23 aerosol inhaler amlodipine 10 mg tablet 10 mg PO DAILY 04/07/23 04/07/23 aspirin 81 mg tablet,delayed 81 mg PO DAILY 04/07/23 04/07/23 release atorvastatin 40 mg tablet 40 mg PO DAILY 04/07/23 04/07/23 cyanocobalamin (vitamin B-12) 1,000 mcg PO DAILY 04/07/23 04/07/23 1,000 mcg tablet diclofenac sodium 1 % topical gel 4 g topical QID PRN pain 04/07/23 04/07/23 dulaglutide 0.75 mg/0.5 mL 0.75 mg subcut TU 04/07/23 04/07/23 subcutaneous pen injector (Trulicity) furosemide 20 mg tablet 20 mg PO DAILY 04/07/23 04/07/23 gabapentin 400 mg capsule 400 mg PO TID 04/07/23 04/07/23 hydrochlorothiazide 25 mg tablet 25 mg PO DAILY 04/07/23 04/07/23 hydroxyzine HCl 25 mg tablet 25 mg PO Q8H PRN anxiety 04/07/23 04/07/23 ibuprofen 600 mg tablet 600 mg PO Q6H PRN pain 04/07/23 04/07/23 meclizine 12.5 mg tablet 12.5 mg PO TID PRN vertigo 04/07/23 04/07/23 metformin 500 mg tablet,extended 1,000 mg PO BID 04/07/23 04/07/23 release 24 hr metoprolol tartrate 25 mg tablet 25 mg PO DAILY 04/07/23 04/07/23 omeprazole 40 mg capsule,delayed 40 mg PO QAM 04/07/23 04/07/23 release ondansetron HCl 4 mg tablet 4 mg PO Q8H PRN nausea 04/07/23 04/07/23 pyridoxine (vitamin B6) 50 mg 50 mg PO DAILY 04/07/23 tablet ropinirole 0.25 mg tablet 0.25 mg PO Q8H PRN restless legs 04/07/23 04/07/23 thiamine HCl (vitamin B1) 100 mg 100 mg PO DAILY 04/07/23 tablet (Vitamin B-1) Previous Rx's Medication Instructions Recorded lorazepam 1 mg tablet (Ativan) 1 mg PO TID PRN Movement Disorder 02/12/23 #20 tabs potassium chloride 10 mEq oral 20 meq PO DAILY 5 days #20 ea 04/05/23 packet acetaminophen 325 mg tablet 650 mg (2 x 325 mg) PO Q6H PRN 04/13/23 Headache/Pain Mild Scale (1-3) #14 tabs aspirin 81 mg chewable tablet 81 mg PO DAILY #14 tabs 04/13/23 atorvastatin 40 mg tablet 40 mg PO BEDTIME #14 tabs 04/13/23 cefuroxime axetil 500 mg tablet 500 mg PO BID #4 tabs 04/13/23 clonazepam 0.5 mg tablet 0.5 mg PO BID #28 tabs 04/13/23 furosemide 20 mg tablet 20 mg PO DAILY #14 tabs 04/13/23 gabapentin 400 mg capsule 400 mg PO TID #42 caps 04/13/23 hydrochlorothiazide 25 mg tablet 25 mg PO DAILY #14 tabs 04/13/23 metformin 1,000 mg tablet 1,000 mg PO BIDWM #28 tabs 04/13/23 metoprolol tartrate 25 mg tablet 25 mg PO DAILY #14 tabs 04/13/23 omeprazole 40 mg capsule,delayed 40 mg PO DAILY@0630 #14 caps 04/13/23 release Mental Status Exam Mental Status Exam Narrative: Pt is alert and oriented; behavior is cooperative and calm; dressed in casual attire; mood is described as good ; eye contact appropriate; Speech is normal rate, volume and prosody and not pressured; focused on discharge; denies SI/HI/AH/VH. Judgement and Insight: insight and judgment good Data Data Completed and Pending Completed studies during hospitalization [Text1]: 04/06/23 04/06/23 04/06/23 14:13 14:35 22:04 WBC 11.3 H RBC 3.72 L Hgb 11.2 L Hct 32.8 L MCV 88.2 MCH 30.1 MCHC 34.1 RDW 13.4 Plt Count 517 H MPV 8.9 L Immature Gran % (Auto) 0.3 Neut % (Auto) 57.3 Lymph % (Auto) 31.3 [place] % (Auto) 7.0 Eos % (Auto) 3.7 Baso % (Auto) 0.4 Lymph # (Auto) 3.5 [place] # (Auto) 0.8 Eos # (Auto) 0.4 Baso # (Auto) 0.1 Abs Immat Gran (auto) 0.03 Absolute Neuts (auto) 6.5 Absolute Nucleated RBC 0.000 Nucleated RBC % (auto) 0.0 Sodium 142 Potassium 3.3 Chloride 106 Carbon Dioxide 27 Anion Gap 12 BUN 19 H Creatinine 0.64 Estim Creat Clear Calc 93.3 Estimated GFR > 60 POC Glucose 143 H Random Glucose 118 H Estimat Average Glucose 123 Hemoglobin A1c % 5.9 Calcium 9.6 Total Bilirubin 0.3 Direct Bilirubin 0.1 AST 44 H ALT 42 H Alkaline Phosphatase 91 Total Protein 7.7 Albumin 4.4 Triglycerides Cholesterol LDL Cholesterol, Calc HDL Cholesterol TSH 3.76 Urine Color Yellow Urine Appearance Cloudy Urine pH 5.5 Ur Specific [place] >= 1.030 H Urine Protein Trace Urine Glucose (UA) Negative Urine Ketones Trace Urine Blood Negative Urine Nitrite Negative Ur Leukocyte Esterase Small (1+) H Urine RBC 0-2 Urine WBC 11-20 H Ur Squamous Epith Cells 11-20 Urine Bacteria 1+ Hyaline Casts 3-5 Urine Opiates Screen Not Detected Urine Fentanyl Screen Not Detected Ur Barbiturates Screen Not Detected Ur Phencyclidine Scrn Not Detected Ur Amphetamines Screen Not Detected U Benzodiazepines Scrn Not Detected Urine Cocaine Screen Not Detected U Marijuana (THC) Screen Not Detected Ethyl Alcohol < 10 BRODIE Screen BRODIE Titer BRODIE Titer 2 BRODIE Titer 3 BRODIE Pattern BRODIE Pattern 2 BRODIE Pattern 3 COVID-19 (LIS) COVID-19 Clin Com 04/07/23 04/08/23 04/08/23 11:30 08:22 08:35 WBC RBC Hgb Hct MCV MCH MCHC RDW Plt Count MPV Immature Gran % (Auto) Neut % (Auto) Lymph % (Auto) [place] % (Auto) Eos % (Auto) Baso % (Auto) Lymph # (Auto) [place] # (Auto) Eos # (Auto) Baso # (Auto) Abs Immat Gran (auto) Absolute Neuts (auto) Absolute Nucleated RBC Nucleated RBC % (auto) Sodium Potassium Chloride Carbon Dioxide Anion Gap BUN Creatinine Estim Creat Clear Calc Estimated GFR POC Glucose 161 H Random Glucose Estimat Average Glucose Hemoglobin A1c % Calcium Total Bilirubin Direct Bilirubin AST ALT Alkaline Phosphatase Total Protein Albumin Triglycerides 216 H Cholesterol 181 LDL Cholesterol, Calc 96 HDL Cholesterol 42 TSH Urine Color Urine Appearance Urine pH Ur Specific [place] Urine Protein Urine Glucose (UA) Urine Ketones Urine Blood Urine Nitrite Ur Leukocyte Esterase Urine RBC Urine WBC Ur Squamous Epith Cells Urine Bacteria Hyaline Casts Urine Opiates Screen Urine Fentanyl Screen Ur Barbiturates Screen Ur Phencyclidine Scrn Ur Amphetamines Screen U Benzodiazepines Scrn Urine Cocaine Screen U Marijuana (THC) Screen Ethyl Alcohol BRODIE Screen Pending BRODIE Titer Pending BRODIE Titer 2 Pending BRODIE Titer 3 Pending BRODIE Pattern Pending BRODIE Pattern 2 Pending BRODIE Pattern 3 Pending COVID-19 (LIS) Negative COVID-19 Clin Com See Note 04/10/23 04/11/23 04/11/23 20:34 08:07 20:57 WBC RBC Hgb Hct MCV MCH MCHC RDW Plt Count MPV Immature Gran % (Auto) Neut % (Auto) Lymph % (Auto) [place] % (Auto) Eos % (Auto) Baso % (Auto) Lymph # (Auto) [place] # (Auto) Eos # (Auto) Baso # (Auto) Abs Immat Gran (auto) Absolute Neuts (auto) Absolute Nucleated RBC Nucleated RBC % (auto) Sodium Potassium Chloride Carbon Dioxide Anion Gap BUN Creatinine Estim Creat Clear Calc Estimated GFR POC Glucose 291 H 282 H 224 H Random Glucose Estimat Average Glucose Hemoglobin A1c % Calcium Total Bilirubin Direct Bilirubin AST ALT Alkaline Phosphatase Total Protein Albumin Triglycerides Cholesterol LDL Cholesterol, Calc HDL Cholesterol TSH Urine Color Urine Appearance Urine pH Ur Specific [place] Urine Protein Urine Glucose (UA) Urine Ketones Urine Blood Urine Nitrite Ur Leukocyte Esterase Urine RBC Urine WBC Ur Squamous Epith Cells Urine Bacteria Hyaline Casts Urine Opiates Screen Urine Fentanyl Screen Ur Barbiturates Screen Ur Phencyclidine Scrn Ur Amphetamines Screen U Benzodiazepines Scrn Urine Cocaine Screen U Marijuana (THC) Screen Ethyl Alcohol BRODIE Screen BRODIE Titer BRODIE Titer 2 BRODIE Titer 3 BRODIE Pattern BRODIE Pattern 2 BRODIE Pattern 3 COVID-19 (LIS) COVID-19 Clin Com 04/12/23 04/12/23 04/12/23 08:34 08:44 17:36 WBC RBC Hgb Hct MCV MCH MCHC RDW Plt Count MPV Immature Gran % (Auto) Neut % (Auto) Lymph % (Auto) [place] % (Auto) Eos % (Auto) Baso % (Auto) Lymph # (Auto) [place] # (Auto) Eos # (Auto) Baso # (Auto) Abs Immat Gran (auto) Absolute Neuts (auto) Absolute Nucleated RBC Nucleated RBC % (auto) Sodium Potassium Chloride Carbon Dioxide Anion Gap BUN Creatinine 0.70 Estim Creat Clear Calc 85.3 Estimated GFR > 60 POC Glucose 251 H 262 H Random Glucose Estimat Average Glucose Hemoglobin A1c % Calcium Total Bilirubin Direct Bilirubin AST ALT Alkaline Phosphatase Total Protein Albumin Triglycerides Cholesterol LDL Cholesterol, Calc HDL Cholesterol TSH Urine Color Urine Appearance Urine pH Ur Specific [place] Urine Protein Urine Glucose (UA) Urine Ketones Urine Blood Urine Nitrite Ur Leukocyte Esterase Urine RBC Urine WBC Ur Squamous Epith Cells Urine Bacteria Hyaline Casts Urine Opiates Screen Urine Fentanyl Screen Ur Barbiturates Screen Ur Phencyclidine Scrn Ur Amphetamines Screen U Benzodiazepines Scrn Urine Cocaine Screen U Marijuana (THC) Screen Ethyl Alcohol BRODIE Screen BRODIE Titer BRODIE Titer 2 BRODIE Titer 3 BRODIE Pattern BRODIE Pattern 2 BRODIE Pattern 3 COVID-19 (LIS) COVID-19 Clin Com 04/12/23 04/13/23 22:00 08:51 WBC RBC Hgb Hct MCV MCH MCHC RDW Plt Count MPV Immature Gran % (Auto) Neut % (Auto) Lymph % (Auto) [place] % (Auto) Eos % (Auto) Baso % (Auto) Lymph # (Auto) [place] # (Auto) Eos # (Auto) Baso # (Auto) Abs Immat Gran (auto) Absolute Neuts (auto) Absolute Nucleated RBC Nucleated RBC % (auto) Sodium Potassium Chloride Carbon Dioxide Anion Gap BUN Creatinine Estim Creat Clear Calc Estimated GFR POC Glucose 265 H 202 H Random Glucose Estimat Average Glucose Hemoglobin A1c % Calcium Total Bilirubin Direct Bilirubin AST ALT Alkaline Phosphatase Total Protein Albumin Triglycerides Cholesterol LDL Cholesterol, Calc HDL Cholesterol TSH Urine Color Urine Appearance Urine pH Ur Specific [place] Urine Protein Urine Glucose (UA) Urine Ketones Urine Blood Urine Nitrite Ur Leukocyte Esterase Urine RBC Urine WBC Ur Squamous Epith Cells Urine Bacteria Hyaline Casts Urine Opiates Screen Urine Fentanyl Screen Ur Barbiturates Screen Ur Phencyclidine Scrn Ur Amphetamines Screen U Benzodiazepines Scrn Urine Cocaine Screen U Marijuana (THC) Screen Ethyl Alcohol BRODIE Screen BRODIE Titer BRODIE Titer 2 BRODIE Titer 3 BRODIE Pattern BRODIE Pattern 2 BRODIE Pattern 3 COVID-19 (LIS) COVID-19 Clin Com DS: Summary Hospital Course Hospital Course: Mrs. Mcghee is a 57 year-old woman who was brought via EMS after police was called due to bizarre behaviors going in and out of [employer] store with one sock only, harrassing some of their employee. Per daughter, pt has not been sleeping, speech has been pressured, at times sentences incomplete or slurring. Pt does have hx of alcohol use which both daughter and pt report stopped a few month ago. She is fully oriented to place, month, year not so much as to situation, as pt reports employee who called police is jealous of her because she suspects dated pt's current boyfriend. Pt notes that she has more energy late and is much happier. She appears to lack insight into how her behaviors are concerning to others. Per daughter, no prior episode like this one nor hx of psychosis or delusions. Her utox is negative. Reviewed medical work up- cbc without leukocitosis, cmp no electrolytes imbalances. 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 Frazier reviewed head CT and reports this is non significant and not contributory to her current presentation. She had no aggressive behaviors on unit; she si organized and appropriate Time spent discussing smoking cessation with patient: 3 to 10 minutes Status at Discharge Cognitive/behavioral status at discharge: alert and oriented; mood stable; future oriented; no aggression; no thought disorder; thought s are logical oand coherent and on her maintaining her health Functional status at discharge: uses cane/walker Overall status at discharge: patient is back to baseline Time Spent with Patient Time attestation: Total time managing care of this patient today ____ minutes. Time spent: Greater than 30 minutes Specific discharge activities: evaluation of patient; discussion with team; review of aftercare plan and supports; review of medication and prescriptions sent to pharmacy Discharge Plan Discharge Anticipated Discharge Date/Time: 04/13/23 10:50 Patient Disposition: Home, Self-Care Discharge Diagnosis: mood disorder unspecified Referrals: [facility] [Other] (The visiting RN will re start at discharge. The Rn will come twice a day to assist with medication. The Ct does not want assistance on weekends as she spends time with family on weekends. ) [facility] Behavioral Health Clinician Jennifer Cason [Other] - 3-5 Days ([phone] [id number] Jennifer will be reaching out to you to check in.) [facility] Ellis [Other] - 04/26/23 10:30 am [facility] Case Management w Xiao Eagle [Other] - 3-5 Days (Reach out to Xiao regarding to continue housing search and motel vouchers. ) Reema Shah, [employer] [Nurse Practitioner] - (Office will call you to schedule follow up appointment.) Discharge Medications: New atorvastatin 40 mg Tablet 40 mg PO BEDTIME Qty: 14 0RF acetaminophen 325 mg Tablet 650 mg PO Q6H PRN (Reason: Headache/Pain Mild Scale (1-3)) Qty: 14 0RF clonazepam 0.5 mg Tablet 0.5 mg PO BID Qty: 28 0RF gabapentin 400 mg Capsule 400 mg PO TID Qty: 42 0RF omeprazole 40 mg Capsule,Delayed Release(Dr/Ec) 40 mg PO DAILY@0630 Qty: 14 0RF metformin 1,000 mg Tablet 1,000 mg PO BIDWM Qty: 28 0RF aspirin 81 mg Tablet,Chewable 81 mg PO DAILY Qty: 14 0RF hydrochlorothiazide 25 mg Tablet 25 mg PO DAILY Qty: 14 0RF Protocol: Hold for SBP< HOLD for SBP < : 90 furosemide 20 mg Tablet 20 mg PO DAILY Qty: 14 0RF Protocol: Hold for SBP< HOLD for SBP < : 90 cefuroxime axetil 500 mg Tablet 500 mg PO BID Qty: 4 0RF metoprolol tartrate 25 mg Tablet 25 mg PO DAILY Qty: 14 0RF Protocol: Hold for SBP/HR < HOLD for SBP < : 90 HOLD for HR < : 60 trazodone 50 mg Tablet 50 mg PO BEDTIME MRX1 PRN (Reason: Insomnia) Qty: 14 0RF meclizine 12.5 mg Tablet 12.5 mg PO TID PRN (Reason: vertigo) Qty: 14 0RF potassium chloride 20 mEq Tablet,Er Particles/Crystals 20 meq PO DAILY Qty: 14 0RF albuterol sulfate [Ventolin HFA] 90 mcg/actuation Hfa Aerosol Inhaler 2 puff inhalation RQ4H PRN (Reason: Shortness Of Breath) Qty: 1 0RF Discontinued lorazepam [Ativan] 1 mg tablet 1 mg PO TID PRN (Reason: Movement Disorder) Qty: 20 0RF potassium chloride 10 mEq packet 20 meq PO DAILY 5 Days Qty: 20 0RF trazodone 50 mg tablet 50 mg PO BEDTIME pregabalin 100 mg capsule 100 mg PO BID furosemide 20 mg tablet 20 mg PO DAILY atorvastatin 40 mg tablet 40 mg PO DAILY ondansetron HCl 4 mg tablet 4 mg PO Q8H PRN (Reason: nausea) cyanocobalamin (vitamin B-12) 1,000 mcg tablet 1,000 mcg PO DAILY thiamine HCl (vitamin B1) [Vitamin B-1] 100 mg tablet 100 mg PO DAILY meclizine 12.5 mg tablet 12.5 mg PO TID PRN (Reason: vertigo) omeprazole 40 mg capsule,delayed release(DR/EC) 40 mg PO QAM aspirin 81 mg tablet,delayed release (DR/EC) 81 mg PO DAILY ropinirole 0.25 mg tablet 0.25 mg PO Q8H PRN (Reason: restless legs) amlodipine 10 mg tablet 10 mg PO DAILY pyridoxine (vitamin B6) 50 mg tablet 50 mg PO DAILY hydroxyzine HCl 25 mg tablet 25 mg PO Q8H PRN (Reason: anxiety) hydrochlorothiazide 25 mg tablet 25 mg PO DAILY ibuprofen 600 mg tablet 600 mg PO Q6H PRN (Reason: pain) albuterol sulfate 90 mcg/actuation HFA aerosol inhaler 2 puff inhalation Q4H PRN (Reason: wheezing) metformin 500 mg tablet extended release 24 hr 1,000 mg PO BID metoprolol tartrate 25 mg tablet 25 mg PO DAILY diclofenac sodium 1 % gel 4 g topical QID PRN (Reason: pain) Trulicity 0.75 mg/0.5 mL pen injector 0.75 mg subcut TU gabapentin 400 mg capsule 400 mg PO TID Discharge Orders: Discharge Order (Routine); Ordered 04/13/23 Ordered By: Tika Diaz Activity on Discharge: As tolerated Stand Alone Forms: Patient Portal Discharge page, Community Support Care Plan Goals: follow up with after care providers including PCP Health Concerns: mood disorder pedal edema Plan of Treatment: continue home medications Assessment: Pt alert and oriented ; mood stable. Understands aftercare plan; no SI or HI; no psychosis; reports she is feeling ready for discharge Discharge Date/Time: 04/13/23 11:56
[2023-04-13 13:27] LABS: Anti Nuclear Antibody Screen NEGATIVE (NEGATIVE)
== END 2023-04-13 11:56 | disposition home or self-care (01) | DRG 885 ==
LOC: HO.ED 17:15 → HO.PM5 04-07 15:22
PROVIDERS: Social Worker; Admitting Provider Psychiatry & Neurology Psychiatry; Emergency Provider Emergency Medicine; Visit Provider Psychiatry & Neurology Psychiatry
DX: F39 Unspecified mood [affective] disorder (principal); K21.9 Gastro-esophageal reflux disease without esophagitis; E11.42 Type 2 diabetes mellitus with diabetic polyneuropathy; I10 Essential (primary) hypertension; Z91.51 Personal history of suicidal behavior; Z20.822 Contact with and (suspected) exposure to COVID-19; Z87.891 Personal history of nicotine dependence; Z79.82 Long term (current) use of aspirin; Z79.84 Long term (current) use of oral hypoglycemic drugs; Z79.899 Other long term (current) drug therapy
CPT/HCPCS: 36415; 80048; 80061; 80076; 80307; 81001; 82565; 82947; 83036; 84443; 85025; 86038; 87635; 93005; 99285; S9485

== ENCOUNTER → 2023-04-07 11:25 | Outpatient (BNV) | payer OTHER, SELFPAY | PROVIDERS: Admitting Provider Psychiatry & Neurology Psychiatry; Emergency Provider Emergency Medicine; Visit Provider Internal Medicine Cardiovascular Disease | DX: I45.81 Long QT syndrome (principal) | CPT/HCPCS: 93010 ==

== ENCOUNTER → 2023-04-07 15:08 | Outpatient (BNV) | payer OTHER, SELFPAY | PROVIDERS: Admitting Provider Psychiatry & Neurology Psychiatry; Emergency Provider Emergency Medicine; Visit Provider Psychiatry & Neurology Psychiatry | DX: F39 Unspecified mood [affective] disorder (principal) | CPT/HCPCS: 90792; 99231; 99232; 99238 ==

== ENCOUNTER 2023-04-20 18:38 | Inpatient (IN) | payer OTHER, SELFPAY ==
[2023-04-20 19:13] VITALS: BP 110/74; PULSE 103; RESP 18; TEMP 37.2; O2SAT 100
[2023-04-20 19:15] VITALS: BMI 31.0
[2023-04-20] MEDS: Atorvastatin Calcium 40 MG TABLET PO (21:16)
[2023-04-20] MEDS: Gabapentin 400 MG CAPSULE PO (21:16)
[2023-04-20] MEDS: traZODone HCL 50 MG TABLET PO (21:16)
[2023-04-20] MEDS: clonazePAM 0.5 MG TABLET PO (21:16)
--- NOTE | 2023-04-21 00:26 | PC.ADMIT ---
Patient is a 57 year old female admitted to [facility] from [facility] on 04/20/23 on a CV for increased delusions. Patient recently discharged from on 04/13/23. She was brought to hospital by police after having a domestic dispute? with her brother in which the patient endorsed SI, and found to be manic with psychotic features. Patient?s daughter reports that she has not been taking care of herself physically or mentally since discharge. Toxicology negative. Patient stopped drinking in January 2023. Upon arrival to the unit, patient signed CV, skin check and vitals completed. Patient is pleasant upon approach and cooperative during admission process, BALWINDER?s signed. Patient oriented to unit. She denies SI/HI/AH/VH. Patient reports that she has had many falls in the past due to her neuropathy. She reports numbness and pins and needles in both lower legs/feet. She uses a walker to assist with ambulation. She is med compliant. Patient has already received her flu vaccine this season.
[2023-04-21] MEDS: Omeprazole 40 MG CAPSULE.DR PO (05:40)
[2023-04-21 06:25] LABS: Glucose, Whole Blood 241 mg/dL (60-115)
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
[2023-04-21 08:29] LABS: Estimated Average Glucose 143 mg/dL; Hemoglobin A1c % 6.6 % (<6.0)
[2023-04-21 08:30] LABS: Alanine Aminotransferase 33 U/L (0-31); Albumin Level 4.2 g/dL (3.5-5.0); Alkaline Phosphatase 127 U/L (39-117); Anion Gap 18 (12-20); Aspartate Amino Transferase 22 U/L (5-31); Bilirubin Total 0.5 mg/dL (0.0-1.0); Blood Urea Nitrogen 21 mg/dL (9-16); Calcium 10.2 mg/dL (8.4-10.2); Carbon Dioxide 27 mmol/L (22-29); Chloride 89 mmol/L (96-108); Cholesterol 215 mg/dL (<200); Creatinine Clr Calc Pharmacy 76.3; Estimated Glomerular Filt Rate > 60; Glucose Fasting 262 mg/dL (60-99); HDL Cholesterol 50 mg/dL (>40); LDL Cholesterol Calculated 135 mg/dL (<100); Potassium 3.6 mmol/L (3.3-5.1); Sodium 130 mmol/L (135-145); Total Protein 8.2 g/dL (6.5-8.0); Triglycerides 154 mg/dL (<150)
[2023-04-21 09:14] VITALS: BP 126/75; PULSE 115; RESP 16; TEMP 36.7; O2SAT 100
[2023-04-21] MEDS: clonazePAM 0.5 MG TABLET PO ×2 (09:47→20:35)
[2023-04-21] MEDS: Gabapentin 400 MG CAPSULE PO ×3 (09:47→20:35)
[2023-04-21] MEDS: Furosemide 20 MG TABLET PO (09:47)
[2023-04-21] MEDS: amLODIPine Besylate 5 MG TABLET PO (09:47)
[2023-04-21] MEDS: Potassium Chloride ER 20 MEQ TAB.ER.PRT PO (09:47)
[2023-04-21] MEDS: Aspirin 81 MG TAB.CHEW PO (09:47)
[2023-04-21] MEDS: Folic Acid 1 MG TABLET PO (09:47)
[2023-04-21] MEDS: hydroCHLOROthiazide 25 MG TABLET PO (09:47)
[2023-04-21] MEDS: Metoprolol Tartrate 25 MG TABLET PO (09:47)
[2023-04-21] MEDS: risperiDONE 1 MG TABLET PO ×2 (11:22→20:35)
[2023-04-21 11:50] LABS: Gamma Glutamyl Transpeptidase 180 U/L (7-33)
--- NOTE | 2023-04-21 12:51 | MHC.CLN ---
NUTRITION VISITED WITH PATIENT AT [facility]. CONFIRMED WEIGHT LOSS, -22# X 2 MONTHS (-11.8%). STATED THAT FEELS BETTER AT LOWER WEIGHT AND WOULD LIKE TO LOSE MORE WEIGHT. 04/06/23 PRIOR ADM WEIGHT=80.7 KG. PATIENT WITH 3+ BLE PEDAL AND ANKLE EDEMA AT THAT TIME. NO CURRENT EDEMA NOTED. SUSPECT CHANGE IN FLUID STATUS CONTRIBUTOR TO WEIGHT LOSS. TAKES DIURETIC. NO NEW NUTRITION INTERVENTIONS AT THIS TIME.
[2023-04-21] MEDS: Acetaminophen 325 MG TABLET 650 MG PO ×2 (14:29→20:35)
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
[2023-04-21 17:36] LABS: Osmolality Urine 457 mosm/kg (373-1093)
[2023-04-21 18:00] VITALS: BP 128/99; PULSE 114; RESP 18; TEMP 36.7; O2SAT 99
[2023-04-21] MEDS: Atorvastatin Calcium 40 MG TABLET PO (20:34)
[2023-04-21] MEDS: Melatonin 3 MG TABLET 6 MG PO (20:36)
[2023-04-21] MEDS: traZODone HCL 50 MG TABLET PO (21:54)
[2023-04-22] MEDS: traZODone HCL 50 MG TABLET PO ×2 (03:29→21:06)
[2023-04-22] MEDS: Acetaminophen 325 MG TABLET 650 MG PO ×3 (05:57→18:16)
[2023-04-22] MEDS: Omeprazole 40 MG CAPSULE.DR PO (06:29)
[2023-04-22 06:38] LABS: Glucose, Whole Blood 371 mg/dL (60-115)
--- NOTE | 2023-04-22 06:39 | PC.NURSE ---
POC taken at 06:30am is 371, Dr Roberto informed. Pt said she just eat her snacks, we will rechecked it again at 07:30h before breakfast.
[2023-04-22 07:54] LABS: Glucose, Whole Blood 435 mg/dL (60-115)
[2023-04-22] MEDS: Insulin Lispro 100 UNIT/ML 3 ML VIAL SUBCUT ×6 (08:02→20:54)
[2023-04-22 08:48] VITALS: BP 132/76; PULSE 115; RESP 16; TEMP 36.3; O2SAT 98
[2023-04-22] MEDS: hydroCHLOROthiazide 25 MG TABLET PO (08:50)
[2023-04-22] MEDS: Metoprolol Tartrate 25 MG TABLET PO (08:50)
[2023-04-22] MEDS: Folic Acid 1 MG TABLET PO (08:50)
[2023-04-22] MEDS: Gabapentin 400 MG CAPSULE PO ×3 (08:50→20:43)
[2023-04-22] MEDS: lisinopriL 10 MG TABLET PO (08:50)
[2023-04-22] MEDS: Aspirin 81 MG TAB.CHEW PO (08:50)
[2023-04-22] MEDS: risperiDONE 1 MG TABLET PO ×2 (08:50→20:44)
[2023-04-22] MEDS: clonazePAM 0.5 MG TABLET PO ×2 (08:50→20:43)
[2023-04-22] MEDS: amLODIPine Besylate 5 MG TABLET PO (08:50)
[2023-04-22] MEDS: Potassium Chloride ER 20 MEQ TAB.ER.PRT PO (08:51)
[2023-04-22 09:03] LABS: Glucose, Whole Blood 398 mg/dL (60-115)
[2023-04-22 11:30] LABS: Glucose, Whole Blood 544 mg/dL (60-115)
[2023-04-22] MEDS: Insulin Glargine,Hum.rec.anlog 100 UNIT/ML 10 ML VIAL 15 UNIT SUBCUT ×2 (11:56→13:02)
[2023-04-22] MEDS: Insulin Lispro 100 UNIT/ML 3 ML VIAL 15 UNIT SUBCUT (12:50)
[2023-04-22 13:02] LABS: Glucose, Whole Blood 570 mg/dL (60-115)
[2023-04-22 13:30] LABS: Glucose, Whole Blood 435 mg/dL (60-115)
[2023-04-22 14:05] LABS: Glucose, Whole Blood 371 mg/dL (60-115)
--- NOTE | 2023-04-22 14:06 | PC.NURSE ---
Patient in milieu and complained to nurse that she was seeing dark areas. I checked her POC or her nurse and it was 435, which was a drop from over 500. I checked her POC again at 1400 for her and it was 371. Both results [place] text to Miguelangel Fernandez MD at 1406.
--- NOTE | 2023-04-22 14:13 | P.PNPSI_ITS ---
Subjective Subjective Date of Service: 04/22/23 Reason For Visit: unspecified bipolar d/o Subjective Notes: Section 12B Medical Problems Affecting Mental Status: Yes (diabetes) Interim History: 57 yo WF reports that she is mentally fine and not sure why she is on psych floor- jsut her medical issues does she seem to be aware of- Issues around her glucose and truilicity dropping off her med list seem to be the issue here- hospitalist aware and ordering insulin to cover- Medication Compliance: Yes Side effects from medications: No Attending Groups: Yes Review of Systems Acute medical concerns: Yes high sugar 571 today Medical Review of Systems: changed Review of Systems: co edema in both legs Mental Status Exam Mental Status Exam Patient Appearance: Disheveled Patient Orientation: Person, Place, Time and Situation Level of Consciousness: Awake Patient Behavior: Appropriate Mood Description: Calm and Happy Affect Description: Calm Patient Cognition Impaired: No Ability to Follow Directions: Fair Speech Pattern: Clear Thought Process: Intact and Goal Oriented Judgement: Poor Judgement and Insight: seems unaware of any mental health concerns and patient was just here a week ago and doesn't seem to know why- best she ever felt Diagnostics Vital Signs (24Hr): Vital Signs - 24 hr 04/21/23 18:00 04/22/23 08:48 Temperature 98.1 F 97.3 F Pulse Rate 114 H 115 H Respiratory Rate 18 16 Blood Pressure 128/99 H 132/76 Pulse Oximetry 99 98 Oxygen Delivery Method Room Air Room Air BMI result Body Mass Index 31.0 Labs 04/23/23 07:00 Labs: Laboratory Results - last 48 hr 04/21/23 04/21/23 04/21/23 05:56 08:08 10:55 Sodium 130 L Potassium 3.6 Chloride 89 L Carbon Dioxide 27 Anion Gap 18 BUN 21 H Creatinine 0.75 Estim Creat Clear Calc 76.3 Estimated GFR > 60 POC Glucose 241 H Fasting Glucose 262 H Estimat Average Glucose 143 Hemoglobin A1c % 6.6 H Calcium 10.2 D Total Bilirubin 0.5 GGT 180 H AST 22 ALT 33 H Alkaline Phosphatase 127 H Total Protein 8.2 H Albumin 4.2 Triglycerides 154 H Cholesterol 215 H LDL Cholesterol, Calc 135 H HDL Cholesterol 50 Urine Osmolality Ur Random Sodium 04/21/23 04/22/23 04/22/23 15:55 06:16 07:48 Sodium Potassium Chloride Carbon Dioxide Anion Gap BUN Creatinine Estim Creat Clear Calc Estimated GFR POC Glucose 371 H* 435 H* Fasting Glucose Estimat Average Glucose Hemoglobin A1c % Calcium Total Bilirubin GGT AST ALT Alkaline Phosphatase Total Protein Albumin Triglycerides Cholesterol LDL Cholesterol, Calc HDL Cholesterol Urine Osmolality 457 Ur Random Sodium 29.0 04/22/23 04/22/23 04/22/23 08:58 11:25 12:43 Sodium Potassium Chloride Carbon Dioxide Anion Gap BUN Creatinine Estim Creat Clear Calc Estimated GFR POC Glucose 398 H* 544 H* 570 H* Fasting Glucose Estimat Average Glucose Hemoglobin A1c % Calcium Total Bilirubin GGT AST ALT Alkaline Phosphatase Total Protein Albumin Triglycerides Cholesterol LDL Cholesterol, Calc HDL Cholesterol Urine Osmolality Ur Random Sodium 04/22/23 04/22/23 13:25 14:00 Sodium Potassium Chloride Carbon Dioxide Anion Gap BUN Creatinine Estim Creat Clear Calc Estimated GFR POC Glucose 435 H* 371 H* Fasting Glucose Estimat Average Glucose Hemoglobin A1c % Calcium Total Bilirubin GGT AST ALT Alkaline Phosphatase Total Protein Albumin Triglycerides Cholesterol LDL Cholesterol, Calc HDL Cholesterol Urine Osmolality Ur Random Sodium Medications Medications Current Medications Acetaminophen (Acetaminophen 325 Mg Tablet) 650 mg PO Q6H PRN PRN Reason: Headache/Pain Mild Scale (1-3) Last Admin: 04/22/23 11:57 Dose: 650 mg Al Hydroxide/Mg Hydroxide (Magnesium Hydrox/Alum Hydrox 30 Ml Oral.Susp) 30 ml PO Q6H PRN PRN Reason: Heartburn/Nausea Albuterol Sulfate (Albuterol Sulfate 90 Mcg 8 Gm Inhaler) 2 puff INHALE RQ4H PRN PRN Reason: Shortness Of Breath Amlodipine Besylate (Amlodipine Besylate 5 Mg Tablet) 5 mg PO DAILY [facility]; Protocol Last Admin: 04/22/23 08:50 Dose: 5 mg Aspirin (Aspirin 81 Mg Tab.Chew) 81 mg PO DAILY [facility] Last Admin: 04/22/23 08:50 Dose: 81 mg Atorvastatin Calcium (Atorvastatin Calcium 40 Mg Tablet) 40 mg PO BEDTIME [facility] Last Admin: 04/21/23 20:34 Dose: 40 mg Clonazepam (Clonazepam 0.5 Mg Tablet) 0.5 mg PO BID [facility] Last Admin: 04/22/23 08:50 Dose: 0.5 mg Dextrose (Dextrose 50 % 25 Gm/50 Ml Syringe) 25 gm IVPUSH Q15M PRN; Protocol PRN Reason: per Hypoglycemia Standing Ord. Folic Acid (Folic Acid 1 Mg Tablet) 1 mg PO DAILY [facility] Last Admin: 04/22/23 08:50 Dose: 1 mg Gabapentin (Gabapentin 400 Mg Capsule) 400 mg PO TID [facility] Last Admin: 04/22/23 08:50 Dose: 400 mg Glucose (Glucose Gel 15 Gm Gel..Gram.) 15 gm PO Q15M PRN; Protocol PRN Reason: per Hypoglycemia Standing Ord. Hydrochlorothiazide (Hydrochlorothiazide 25 Mg Tablet) 25 mg PO DAILY [facility]; Protocol Last Admin: 04/22/23 08:50 Dose: 25 mg Hydroxyzine HCl (Hydroxyzine Hcl 25 Mg Tablet) 25 mg PO Q8H PRN PRN Reason: anxiety Insulin Glargine (Insulin Glargine,Hum.Rec.Anlog 100 Unit/Ml 10 Ml Vial) 15 unit SUBCUT DAILY [facility] Last Admin: 04/22/23 13:02 Dose: 15 unit Insulin Human Lispro (Insulin Lispro 100 Unit/Ml 3 Ml Vial) 0 unit SUBCUT QIDACHS [facility]; Protocol Last Admin: 04/22/23 11:37 Dose: 25 unit Insulin Human Lispro (Insulin Lispro 100 Unit/Ml 3 Ml Vial) 5 unit SUBCUT QIDACHS [facility] Last Admin: 04/22/23 11:41 Dose: Not Given Lisinopril (Lisinopril 10 Mg Tablet) 10 mg PO DAILY [facility]; Protocol Last Admin: 04/22/23 08:50 Dose: 10 mg Magnesium Hydroxide (Milk Of Magnesia 30 Ml Oral.Susp) 30 ml PO DAILY PRN PRN Reason: Constipation Meclizine HCl (Meclizine Hcl 12.5 Mg Tablet) 12.5 mg PO TID PRN PRN Reason: vertigo Melatonin (Melatonin 3 Mg Tablet) 6 mg PO BEDTIME PRN PRN Reason: Insomnia Last Admin: 04/21/23 20:36 Dose: 6 mg Metformin HCl (Metformin Hcl 1,000 Mg Tablet) 1,000 mg PO BIDWM [facility] Last Admin: 04/22/23 08:50 Dose: Not Given Metoprolol Tartrate (Metoprolol Tartrate 25 Mg Tablet) 25 mg PO DAILY [facility]; Protocol Last Admin: 04/22/23 08:50 Dose: 25 mg Nicotine Polacrilex (Nicotine Polacrilex 2 Mg Gum) 4 mg BUCCAL Q2H PRN PRN Reason: Nicotine Cravings Olanzapine (Olanzapine 2.5 Mg Tablet) 2.5 mg PO BID PRN PRN Reason: agitation Omeprazole (Omeprazole 40 Mg Capsule.Dr) 40 mg PO DAILY@0630 [facility] Last Admin: 04/22/23 06:29 Dose: 40 mg Potassium Chloride (Potassium Chloride Er 20 Meq Tab.Er.Prt) 20 meq PO DAILY [facility] Last Admin: 04/22/23 08:51 Dose: 20 meq Risperidone (Risperidone 1 Mg Tablet) 1 mg PO BID [facility] Last Admin: 04/22/23 08:50 Dose: 1 mg Trazodone HCl (Trazodone Hcl 50 Mg Tablet) 50 mg PO BEDTIME MRX1 PRN PRN Reason: Insomnia Last Admin: 04/22/23 03:29 Dose: 50 mg Allergies Allergies Allergy/AdvReac Type Severity Reaction Status Date / Time bee pollen Allergy Anaphylaxis Verified 04/05/23 15:26 Assessment & Plan Assessment & Plan (1) Medical clearance for psychiatric admission: Status: Acute Code(s): Z00.8 - Encounter for other general examination Plan Pt is a 57-year-old female with a PMH significant for?HTN, possible TIA, vertigo, peripheral neuropathy, migraine, anxiety, and bipolar disorder who is admitted to [facility] having domestic dispute in the community after which she endorsed suicidal thoughts. Patient was just discharged from a 1-week stay on when she went home and found the locks changed on her door. She confronted her brother who owns the home and police were called after a dispute began. Medical consult for admission H&P. Mood disorder Plan as per psychiatry Hyponatremia Sodium 130, down from 142 on 04/06/2023 Likely secondary to multiple diuretic use Pt recently switched from amlodipine 10 mg daily to hydrochlorothiazide 25 mg daily right around 04/06/2023 due to lower leg edema Patient initially on Lasix which was held while in psych as patient stated it did not improve her lower leg edema Upon discharge, patient was sent home on both furosemide and hydrochlorothiazide Will hold Lasix Will also hold hydrochlorothiazide for now Will start on lisinopril 10mg daily Recheck BMP on 04/23/2023 days' time Chronic lower leg edema Hold hydrochlorothiazide and Lasix due to hyponatremia Compression stockings, feet elevation, encourage ambulation as tolerated Can consider restarting hydrochlorothiazide if hyponatremia resolves HTN Hold diuretics Continue amlodipine 5 mg Will start on lisinopril 10 mg Monitor BP HLD Continue atorvastatin Non-insulin dependent type 2 diabetes Continue [address] on sliding scale insulin Encouraged diabetic diet Thank you for allowing us to participate in the care of this patient. Will continue to follow pending repeat lab results. Patient educated on: medication risk/benefits and medical condition Informed Consent: further education needed Reason for continued inpatient stay Substantial Risk for: med/psych decompensation Time Spent With Patient Time: Total time managing care of this patient today ____ minutes.
[2023-04-22 16:13] LABS: Glucose, Whole Blood 252 mg/dL (60-115)
[2023-04-22 18:00] VITALS: BP 98/56; PULSE 96; RESP 18; TEMP 36.7; O2SAT 98
[2023-04-22 19:05] LABS: Glucose, Whole Blood 212 mg/dL (60-115)
[2023-04-22] MEDS: Atorvastatin Calcium 40 MG TABLET PO (20:43)
[2023-04-22 20:51] LABS: Glucose, Whole Blood 284 mg/dL (60-115)
[2023-04-23] MEDS: Omeprazole 40 MG CAPSULE.DR PO (06:24)
[2023-04-23 06:32] LABS: Glucose, Whole Blood 261 mg/dL (60-115)
[2023-04-23] MEDS: Acetaminophen 325 MG TABLET 650 MG PO ×3 (06:38→21:10)
[2023-04-23 07:31] LABS: Anion Gap 14 (12-20); Blood Urea Nitrogen 37 mg/dL (9-16); Calcium 9.2 mg/dL (8.4-10.2); Carbon Dioxide 27 mmol/L (22-29); Chloride 90 mmol/L (96-108); Creatinine Clr Calc Pharmacy 68.9; Estimated Glomerular Filt Rate > 60; Glucose Random 283 mg/dL (60-115); Potassium 3.4 mmol/L (3.3-5.1); Sodium 128 mmol/L (135-145)
[2023-04-23 08:36] VITALS: BP 101/58; PULSE 117; RESP 16; TEMP 36.1; O2SAT 98
[2023-04-23] MEDS: Aspirin 81 MG TAB.CHEW PO (08:54)
[2023-04-23] MEDS: Insulin Glargine,Hum.rec.anlog 100 UNIT/ML 10 ML VIAL 15 UNIT SUBCUT (08:55)
[2023-04-23] MEDS: Potassium Chloride ER 20 MEQ TAB.ER.PRT PO (08:55)
[2023-04-23] MEDS: risperiDONE 1 MG TABLET PO ×2 (08:55→21:11)
[2023-04-23] MEDS: Gabapentin 400 MG CAPSULE PO ×3 (08:55→21:11)
[2023-04-23] MEDS: clonazePAM 0.5 MG TABLET PO ×2 (08:55→21:11)
[2023-04-23] MEDS: Folic Acid 1 MG TABLET PO (08:55)
[2023-04-23] MEDS: Insulin Lispro 100 UNIT/ML 3 ML VIAL SUBCUT ×8 (08:56→21:28)
[2023-04-23 09:56] LABS: Anion Gap 16 (12-20); Blood Urea Nitrogen 38 mg/dL (9-16); Calcium 9.4 mg/dL (8.4-10.2); Carbon Dioxide 26 mmol/L (22-29); Chloride 90 mmol/L (96-108); Creatinine Clr Calc Pharmacy 60.3; Estimated Glomerular Filt Rate > 60; Glucose Random 346 mg/dL (60-115); Potassium 3.7 mmol/L (3.3-5.1); Sodium 128 mmol/L (135-145)
--- NOTE | 2023-04-23 11:09 | PM.EVENT ---
Event Note Date of Service: 04/23/23 Event Note: Ongoing hyponatremia. Blood pressure soft. Discontinue hydrochlorothiazide which is likely contributing to low sodium levels. Elevated glucose levels can also can a pseudohyponatremia. Glucose levels are gradually improving with adjustments in insulin made yesterday. Continue monitoring glucose levels. Fluid restrict to 1.5L if possible to help improve sodium levels until normalized. BMP ordered for 3/ to recheck levels. Time Spent With Patient Time: Total time managing care of this patient today ____ minutes.
--- NOTE | 2023-04-23 11:14 | P.PNPSI_ITS ---
Subjective Subjective Date of Service: 04/23/23 Reason For Visit: unspecified bipolar d/o Subjective Notes: Section 12B Healthcare Proxy: No Guardianship: No Medical Problems Affecting Mental Status: No Interim History: ? if mental status changes are due to hyponatremia and reactive ? hyper glycemia- Pt seems to have little insight- and was aggressive before admission. Pt no longer on trulicity- reviewed hospitalist note about dc diuretic and recheck labs in few days- ongoing insulin for high glucose but unclear if patient should go back on trulicity =- says her daugther can bring it tomorrow from home Pt reports no psychiatric complaints co edema and oidn stockings being too tight Medication Compliance: Yes Side effects from medications: Yes (hyponatremia) Attending Groups: Intermittent Review of Systems Acute medical concerns: Yes hyponatremia hyperglycemia Medical Review of Systems: changed Review of Systems: see hospitalist note Mental Status Exam Mental Status Exam Patient Appearance: Well Grooomed and Appropriate Patient Orientation: Person, Place and Time Level of Consciousness: Awake Patient Behavior: Appropriate and Hyperactive Mood Description: Calm and Happy Affect Description: Expansive Patient Cognition Impaired: No Ability to Follow Directions: Fair Speech Pattern: Clear Hallucinations: None Thought Process: Intact Thought Content: positive for Goal Oriented Abnormal Motor Activity Signs and Symptoms: Hyperactivity Judgement: Fair Diagnostics Vital Signs (24Hr): Vital Signs - 24 hr 04/22/23 18:00 04/23/23 08:36 Temperature 98.1 F 97.0 F Pulse Rate 96 117 H Respiratory Rate 18 16 Blood Pressure 98/56 L 101/58 L Pulse Oximetry 98 98 Oxygen Delivery Method Room Air Room Air BMI result Body Mass Index 31.0 Labs 04/23/23 09:25 Labs: Laboratory Results - last 48 hr 04/21/23 04/21/23 04/22/23 10:55 15:55 06:16 Hold Purple Top Sodium Potassium Chloride Carbon Dioxide Anion Gap BUN Creatinine Estim Creat Clear Calc Estimated GFR POC Glucose 371 H* Random Glucose Calcium GGT 180 H Urine Osmolality 457 Ur Random Sodium 29.0 04/22/23 04/22/23 04/22/23 07:48 08:58 11:25 Hold Purple Top Sodium Potassium Chloride Carbon Dioxide Anion Gap BUN Creatinine Estim Creat Clear Calc Estimated GFR POC Glucose 435 H* 398 H* 544 H* Random Glucose Calcium GGT Urine Osmolality Ur Random Sodium 04/22/23 04/22/23 04/22/23 12:43 13:25 14:00 Hold Purple Top Sodium Potassium Chloride Carbon Dioxide Anion Gap BUN Creatinine Estim Creat Clear Calc Estimated GFR POC Glucose 570 H* 435 H* 371 H* Random Glucose Calcium GGT Urine Osmolality Ur Random Sodium 04/22/23 04/22/23 04/22/23 16:08 19:02 20:41 Hold Purple Top Sodium Potassium Chloride Carbon Dioxide Anion Gap BUN Creatinine Estim Creat Clear Calc Estimated GFR POC Glucose 252 H 212 H 284 H Random Glucose Calcium GGT Urine Osmolality Ur Random Sodium 04/23/23 04/23/23 04/23/23 06:14 07:00 09:25 Hold Purple Top SEE NOTE Sodium 128 L 128 L Potassium 3.4 3.7 Chloride 90 L 90 L Carbon Dioxide 27 26 Anion Gap 14 16 BUN 37 H 38 H Creatinine 0.83 0.95 Estim Creat Clear Calc 68.9 60.3 Estimated GFR > 60 > 60 POC Glucose 261 H Random Glucose 283 H 346 H Calcium 9.2 D 9.4 GGT Urine Osmolality Ur Random Sodium Medications Medications Current Medications Acetaminophen (Acetaminophen 325 Mg Tablet) 650 mg PO Q6H PRN PRN Reason: Headache/Pain Mild Scale (1-3) Last Admin: 04/23/23 06:38 Dose: 650 mg Al Hydroxide/Mg Hydroxide (Magnesium Hydrox/Alum Hydrox 30 Ml Oral.Susp) 30 ml PO Q6H PRN PRN Reason: Heartburn/Nausea Albuterol Sulfate (Albuterol Sulfate 90 Mcg 8 Gm Inhaler) 2 puff INHALE RQ4H PRN PRN Reason: Shortness Of Breath Amlodipine Besylate (Amlodipine Besylate 5 Mg Tablet) 5 mg PO DAILY [facility]; Protocol Last Admin: 04/22/23 08:50 Dose: 5 mg Aspirin (Aspirin 81 Mg Tab.Chew) 81 mg PO DAILY [facility] Last Admin: 04/23/23 08:54 Dose: 81 mg Atorvastatin Calcium (Atorvastatin Calcium 40 Mg Tablet) 40 mg PO BEDTIME [facility] Last Admin: 04/22/23 20:43 Dose: 40 mg Clonazepam (Clonazepam 0.5 Mg Tablet) 0.5 mg PO BID [facility] Last Admin: 04/23/23 08:55 Dose: 0.5 mg Dextrose (Dextrose 50 % 25 Gm/50 Ml Syringe) 25 gm IVPUSH Q15M PRN; Protocol PRN Reason: per Hypoglycemia Standing Ord. Folic Acid (Folic Acid 1 Mg Tablet) 1 mg PO DAILY [facility] Last Admin: 04/23/23 08:55 Dose: 1 mg Gabapentin (Gabapentin 400 Mg Capsule) 400 mg PO TID [facility] Last Admin: 04/23/23 08:55 Dose: 400 mg Glucose (Glucose Gel 15 Gm Gel..Gram.) 15 gm PO Q15M PRN; Protocol PRN Reason: per Hypoglycemia Standing Ord. Hydroxyzine HCl (Hydroxyzine Hcl 25 Mg Tablet) 25 mg PO Q8H PRN PRN Reason: anxiety Insulin Glargine (Insulin Glargine,Hum.Rec.Anlog 100 Unit/Ml 10 Ml Vial) 15 unit SUBCUT DAILY [facility] Last Admin: 04/23/23 08:55 Dose: 15 unit Insulin Human Lispro (Insulin Lispro 100 Unit/Ml 3 Ml Vial) 0 unit SUBCUT QIDAS [facility]; Protocol Last Admin: 04/23/23 08:56 Dose: 6 unit Insulin Human Lispro (Insulin Lispro 100 Unit/Ml 3 Ml Vial) 5 unit SUBCUT QIDAS [facility] Last Admin: 04/23/23 08:56 Dose: 5 unit Lisinopril (Lisinopril 10 Mg Tablet) 10 mg PO DAILY [facility]; Protocol Last Admin: 04/22/23 08:50 Dose: 10 mg Magnesium Hydroxide (Milk Of Magnesia 30 Ml Oral.Susp) 30 ml PO DAILY PRN PRN Reason: Constipation Meclizine HCl (Meclizine Hcl 12.5 Mg Tablet) 12.5 mg PO TID PRN PRN Reason: vertigo Melatonin (Melatonin 3 Mg Tablet) 6 mg PO BEDTIME PRN PRN Reason: Insomnia Last Admin: 04/21/23 20:36 Dose: 6 mg Metformin HCl (Metformin Hcl 1,000 Mg Tablet) 1,000 mg PO BIDWM [facility] Last Admin: 04/23/23 08:57 Dose: Not Given Metoprolol Tartrate (Metoprolol Tartrate 25 Mg Tablet) 25 mg PO DAILY [facility]; Protocol Last Admin: 04/22/23 08:50 Dose: 25 mg Nicotine Polacrilex (Nicotine Polacrilex 2 Mg Gum) 4 mg BUCCAL Q2H PRN PRN Reason: Nicotine Cravings Olanzapine (Olanzapine 2.5 Mg Tablet) 2.5 mg PO BID PRN PRN Reason: agitation Omeprazole (Omeprazole 40 Mg Capsule.Dr) 40 mg PO DAILY@0630 [facility] Last Admin: 04/23/23 06:24 Dose: 40 mg Potassium Chloride (Potassium Chloride Er 20 Meq Tab.Er.Prt) 20 meq PO DAILY [facility] Last Admin: 04/23/23 08:55 Dose: 20 meq Risperidone (Risperidone 1 Mg Tablet) 1 mg PO BID [facility] Last Admin: 04/23/23 08:55 Dose: 1 mg Trazodone HCl (Trazodone Hcl 50 Mg Tablet) 50 mg PO BEDTIME MRX1 PRN PRN Reason: Insomnia Last Admin: 04/22/23 21:06 Dose: 50 mg Allergies Allergies Allergy/AdvReac Type Severity Reaction Status Date / Time bee pollen Allergy Anaphylaxis Verified 04/05/23 15:26 Assessment & Plan Assessment & Plan (1) Medical clearance for psychiatric admission: Status: Acute Code(s): Z00.8 - Encounter for other general examination (2) Mood disorder: Status: Acute Code(s): F39 - Unspecified mood [affective] disorder Assessment and Plan: no insight- hyperactive and a bit too happy for what is going on in her life (3) Hyponatremia: Status: Acute Code(s): E87.1 - Hypo-osmolality and hyponatremia Assessment and Plan: water restriction 1.5 L hold on diuretic and atorvastatin re check bmp 04/24 (4) Hyperglycemia: Status: Acute Code(s): R73.9 - Hyperglycemia, unspecified Assessment and Plan: insulin sliding scale ? if she should be back on trulicity or no Plan Pt is a 57-year-old female with a PMH significant for?HTN, possible TIA, vertigo, peripheral neuropathy, migraine, anxiety, and bipolar disorder who is admitted to [facility] having domestic dispute in the community after which she endorsed suicidal thoughts. Patient was just discharged from a 1-week stay on when she went home and found the locks changed on her door. She confronted her brother who owns the home and police were called after a dispute began. Medical consult for admission H&P. Mood disorder Plan as per psychiatry Hyponatremia Sodium 130, down from 142 on 04/06/2023 Likely secondary to multiple diuretic use Pt recently switched from amlodipine 10 mg daily to hydrochlorothiazide 25 mg daily right around 04/06/2023 due to lower leg edema Patient initially on Lasix which was held while in psych as patient stated it did not improve her lower leg edema Upon discharge, patient was sent home on both furosemide and hydrochlorothiazide Will hold Lasix Will also hold hydrochlorothiazide for now Will start on lisinopril 10mg daily Recheck BMP on 04/23/2023 days' time Chronic lower leg edema Hold hydrochlorothiazide and Lasix due to hyponatremia Compression stockings, feet elevation, encourage ambulation as tolerated Can consider restarting hydrochlorothiazide if hyponatremia resolves HTN Hold diuretics Continue amlodipine 5 mg Will start on lisinopril 10 mg Monitor BP HLD Continue atorvastatin Non-insulin dependent type 2 diabetes Continue metformin [address] on sliding scale insulin Encouraged diabetic diet Thank you for allowing us to participate in the care of this patient. Will continue to follow pending repeat lab results. Patient educated on: medical condition Informed Consent: further education needed Reason for continued inpatient stay Substantial Risk for: med/psych decompensation Time Spent With Patient Time: Total time managing care of this patient today ____ minutes.
[2023-04-23 11:33] LABS: Glucose, Whole Blood 233 mg/dL (60-115)
[2023-04-23 16:28] LABS: Glucose, Whole Blood 341 mg/dL (60-115)
[2023-04-23 18:00] VITALS: BP 122/78; PULSE 103; RESP 18; TEMP 36.7; O2SAT 98
[2023-04-23 21:11] LABS: Glucose, Whole Blood 289 mg/dL (60-115)
[2023-04-23] MEDS: hydrOXYzine HCL 25 MG TABLET PO (21:11)
[2023-04-23] MEDS: Melatonin 3 MG TABLET 6 MG PO (21:11)
[2023-04-24] MEDS: Acetaminophen 325 MG TABLET 650 MG PO ×3 (03:05→16:04)
[2023-04-24] MEDS: Omeprazole 40 MG CAPSULE.DR PO (06:07)
[2023-04-24 06:39] LABS: Glucose, Whole Blood 259 mg/dL (60-115)
[2023-04-24 08:23] VITALS: BP 121/60; PULSE 98; RESP 16; TEMP 35.9; O2SAT 99
[2023-04-24] MEDS: Aspirin 81 MG TAB.CHEW PO (08:25)
[2023-04-24] MEDS: Folic Acid 1 MG TABLET PO (08:25)
[2023-04-24] MEDS: risperiDONE 1 MG TABLET PO ×2 (08:25→21:00)
[2023-04-24] MEDS: amLODIPine Besylate 5 MG TABLET PO (08:25)
[2023-04-24] MEDS: clonazePAM 0.5 MG TABLET PO ×2 (08:26→21:00)
[2023-04-24] MEDS: Metoprolol Tartrate 25 MG TABLET PO (08:26)
[2023-04-24] MEDS: lisinopriL 10 MG TABLET PO (08:26)
[2023-04-24] MEDS: Potassium Chloride ER 20 MEQ TAB.ER.PRT PO (08:26)
[2023-04-24] MEDS: Gabapentin 400 MG CAPSULE PO ×3 (08:26→21:00)
[2023-04-24] MEDS: Insulin Lispro 100 UNIT/ML 3 ML VIAL SUBCUT ×8 (08:55→21:01)
[2023-04-24 08:57] LABS: HBS Num1 0.31 mIU/mL (0-7.99); HBsAGNum1 0.31 S/CO (0.00-0.99); HIV AB/AG Nonreactive (Nonreactive); HIV Num 1 0.06 S/CO (0.00-0.99); Hepatitis A Antibody IgM 0.43 Index (0-0.79); Hepatitis B Core Antibody Nonreactive (Nonreactive); Hepatitis B Surface Antigen Negative (Negative); ~HepC Num1 0.09 S/CO (0.00-0.79); ~Hepatitis A Antibody IgM Nonreactive (Nonreactive); ~Hepatitis B Surface Antibody NONREACTIVE (Nonreactive); ~Hepatitis C Antibody Nonreactive (Nonreactive)
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
[2023-04-24] MEDS: Insulin Glargine,Hum.rec.anlog 100 UNIT/ML 10 ML VIAL 15 UNIT SUBCUT (09:43)
[2023-04-24 10:23] LABS: Anion Gap 13 (12-20); Blood Urea Nitrogen 24 mg/dL (9-16); Calcium 9.6 mg/dL (8.4-10.2); Carbon Dioxide 30 mmol/L (22-29); Chloride 95 mmol/L (96-108); Creatinine Clr Calc Pharmacy 66.6; Estimated Glomerular Filt Rate > 60; Glucose Random 275 mg/dL (60-115); Potassium 4.2 mmol/L (3.3-5.1); Sodium 134 mmol/L (135-145)
[2023-04-24 10:28] LABS: Osmolality, Serum 294 mosm/kg (281-305)
[2023-04-24 11:31] LABS: Glucose, Whole Blood 234 mg/dL (60-115)
[2023-04-24 16:19] LABS: Glucose, Whole Blood 315 mg/dL (60-115)
[2023-04-24 18:00] VITALS: BP 109/58; PULSE 99; RESP 18; TEMP 36.3; O2SAT 98
[2023-04-24 20:47] LABS: Glucose, Whole Blood 272 mg/dL (60-115)
[2023-04-24] MEDS: traZODone HCL 50 MG TABLET PO ×2 (21:00→23:58)
[2023-04-24] MEDS: hydrOXYzine HCL 25 MG TABLET PO (21:00)
[2023-04-24] MEDS: Melatonin 3 MG TABLET 6 MG PO (21:00)
[2023-04-25] MEDS: Acetaminophen 325 MG TABLET 650 MG PO ×3 (04:44→21:03)
[2023-04-25] MEDS: Omeprazole 40 MG CAPSULE.DR PO (05:32)
[2023-04-25 06:33] LABS: Glucose, Whole Blood 199 mg/dL (60-115)
[2023-04-25 08:16] VITALS: BP 104/68; PULSE 96; RESP 18; TEMP 36.8; O2SAT 97
[2023-04-25 08:53] LABS: Anion Gap 11 (12-20); Blood Urea Nitrogen 23 mg/dL (9-16); Calcium 9.2 mg/dL (8.4-10.2); Carbon Dioxide 26 mmol/L (22-29); Chloride 99 mmol/L (96-108); Creatinine Clr Calc Pharmacy 77.4; Estimated Glomerular Filt Rate > 60; Glucose Random 246 mg/dL (60-115); Sodium 131 mmol/L (135-145)
[2023-04-25] MEDS: Potassium Chloride ER 20 MEQ TAB.ER.PRT PO (08:53)
[2023-04-25] MEDS: Metoprolol Tartrate 25 MG TABLET PO (08:53)
[2023-04-25] MEDS: Folic Acid 1 MG TABLET PO (08:53)
[2023-04-25] MEDS: lisinopriL 10 MG TABLET PO (08:53)
[2023-04-25] MEDS: risperiDONE 1 MG TABLET PO ×2 (08:53→20:57)
[2023-04-25] MEDS: Aspirin 81 MG TAB.CHEW PO (08:53)
[2023-04-25] MEDS: clonazePAM 0.5 MG TABLET PO ×2 (08:53→20:56)
[2023-04-25] MEDS: amLODIPine Besylate 5 MG TABLET PO (08:54)
[2023-04-25] MEDS: Insulin Lispro 100 UNIT/ML 3 ML VIAL SUBCUT ×6 (08:54→17:13)
[2023-04-25] MEDS: Gabapentin 400 MG CAPSULE PO ×3 (08:54→20:56)
[2023-04-25] MEDS: Insulin Glargine,Hum.rec.anlog 100 UNIT/ML 10 ML VIAL 15 UNIT SUBCUT (08:54)
[2023-04-25 11:34] LABS: Glucose, Whole Blood 283 mg/dL (60-115)
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
[2023-04-25 16:36] LABS: Glucose, Whole Blood 163 mg/dL (60-115)
[2023-04-25 18:00] VITALS: BP 98/49; PULSE 97; RESP 17; TEMP 36.4; O2SAT 98
[2023-04-25 20:15] LABS: Glucose, Whole Blood 104 mg/dL (60-115)
[2023-04-25] MEDS: Atorvastatin Calcium 40 MG TABLET PO (20:56)
[2023-04-25] MEDS: traZODone HCL 50 MG TABLET PO ×2 (21:04→23:13)
[2023-04-25] MEDS: Melatonin 3 MG TABLET 6 MG PO (23:13)
[2023-04-25] MEDS: hydrOXYzine HCL 25 MG TABLET PO (23:13)
[2023-04-26] MEDS: Omeprazole 40 MG CAPSULE.DR PO (06:11)
[2023-04-26 06:24] LABS: Glucose, Whole Blood 143 mg/dL (60-115)
[2023-04-26 08:30] VITALS: BP 108/62; PULSE 96; RESP 18; TEMP 36.2; O2SAT 97
[2023-04-26] MEDS: Insulin Glargine,Hum.rec.anlog 100 UNIT/ML 10 ML VIAL 15 UNIT SUBCUT (09:12)
[2023-04-26] MEDS: Folic Acid 1 MG TABLET PO (09:13)
[2023-04-26] MEDS: Metoprolol Tartrate 25 MG TABLET PO (09:13)
[2023-04-26] MEDS: risperiDONE 1 MG TABLET PO ×2 (09:13→20:28)
[2023-04-26] MEDS: Gabapentin 400 MG CAPSULE PO ×3 (09:13→20:28)
[2023-04-26] MEDS: clonazePAM 0.5 MG TABLET PO ×2 (09:13→20:28)
[2023-04-26] MEDS: Aspirin 81 MG TAB.CHEW PO (09:13)
[2023-04-26] MEDS: lisinopriL 10 MG TABLET PO (09:13)
[2023-04-26 11:26] LABS: Glucose, Whole Blood 205 mg/dL (60-115)
[2023-04-26] MEDS: Insulin Lispro 100 UNIT/ML 3 ML VIAL SUBCUT ×6 (11:28→21:07)
[2023-04-26] MEDS: Acetaminophen 325 MG TABLET 650 MG PO ×2 (12:24→20:28)
[2023-04-26 16:24] LABS: Glucose, Whole Blood 185 mg/dL (60-115)
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
[2023-04-26 18:00] VITALS: BP 106/57; PULSE 83; RESP 16; TEMP 36.1; O2SAT 95
[2023-04-26 20:24] LABS: Glucose, Whole Blood 206 mg/dL (60-115)
[2023-04-26] MEDS: Atorvastatin Calcium 40 MG TABLET PO (20:27)
[2023-04-26] MEDS: hydrOXYzine HCL 25 MG TABLET PO (20:29)
[2023-04-26] MEDS: traZODone HCL 50 MG TABLET PO (20:29)
[2023-04-26] MEDS: Melatonin 3 MG TABLET 6 MG PO (20:29)
[2023-04-27] MEDS: Omeprazole 40 MG CAPSULE.DR PO (05:41)
[2023-04-27] MEDS: Acetaminophen 325 MG TABLET 650 MG PO (05:44)
[2023-04-27 06:28] LABS: Glucose, Whole Blood 152 mg/dL (60-115)
[2023-04-27 07:45] VITALS: BP 149/58; PULSE 105; RESP 18; TEMP 36.7; O2SAT 98
[2023-04-27] MEDS: Insulin Glargine,Hum.rec.anlog 100 UNIT/ML 10 ML VIAL 15 UNIT SUBCUT (08:46)
[2023-04-27] MEDS: Insulin Lispro 100 UNIT/ML 3 ML VIAL SUBCUT ×2 (08:48)
[2023-04-27] MEDS: Folic Acid 1 MG TABLET PO (08:49)
[2023-04-27] MEDS: risperiDONE 1 MG TABLET PO (08:49)
[2023-04-27] MEDS: Gabapentin 400 MG CAPSULE PO (08:49)
[2023-04-27] MEDS: Aspirin 81 MG TAB.CHEW PO (08:49)
[2023-04-27] MEDS: clonazePAM 0.5 MG TABLET PO (08:49)
[2023-04-27] MEDS: Metoprolol Tartrate 25 MG TABLET PO (08:49)
[2023-04-27] MEDS: lisinopriL 10 MG TABLET PO (08:49)
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
== END 2023-04-27 11:32 | disposition home or self-care (01) | DRG 885 ==
PROVIDERS: Physician Assistant; Psychiatry & Neurology Psychiatry; Student in an Organized Health Care Education/Training Program; Admitting Provider Social Worker; Visit Provider Social Worker
DX: F31.9 Bipolar disorder, unspecified (principal); E11.42 Type 2 diabetes mellitus with diabetic polyneuropathy; I10 Essential (primary) hypertension; E78.5 Hyperlipidemia, unspecified; Z87.891 Personal history of nicotine dependence; Z79.4 Long term (current) use of insulin; Z79.82 Long term (current) use of aspirin; Z79.899 Other long term (current) drug therapy
CPT/HCPCS: 36415; 80048; 80053; 80061; 82947; 82977; 83036; 83930; 83935; 84300; 86704; 86706; 86709; 86803; 87340; 87389

== ENCOUNTER → 2023-04-20 18:38 | Outpatient (BNV) | payer OTHER, SELFPAY | PROVIDERS: Admitting Provider Social Worker; Visit Provider Social Worker | DX: F39 Unspecified mood [affective] disorder (principal); R73.9 Hyperglycemia, unspecified | CPT/HCPCS: 90792; 99231; 99232; 99239 ==

== ENCOUNTER → 2023-04-20 18:38 | Outpatient (BNV) | payer OTHER, SELFPAY | PROVIDERS: Admitting Provider Social Worker; Visit Provider Student in an Organized Health Care Education/Training Program | DX: E87.1 Hypo-osmolality and hyponatremia (principal); I10 Essential (primary) hypertension; E11.69 Type 2 diabetes mellitus with other specified complication | CPT/HCPCS: 99222; 99499 ==

== ENCOUNTER 2023-05-08 11:30 | Inpatient (IN) | payer OTHER, SELFPAY ==
--- NOTE | ~2023-05-08 | XR_ITS ---
EXAMINATION: XR ANKLE, RIGHT CLINICAL INFORMATION: Possible fracture. COMPARISON: None available. TECHNIQUE: AP, lateral, and mortise views of the right ankle. FINDINGS: The soft tissues are diffusely swollen within the visualized lower leg, ankle and foot. No soft tissue gas or radiopaque foreign body. Bones have normal alignment at the ankle. The ankle joint spaces are maintained. No acute fracture or subluxation. No erosions or periostitis. There is calcaneal enthesophyte formation at sites of attachment of the Achilles tendon and plantar aponeurosis. No suspicious bone lesions. XR/XR ankle RT 2V IMPRESSION: * No acute osseous injury at the right ankle. * There is nonspecific diffuse soft tissue edema of the visualized lower leg, ankle and foot.
--- NOTE | 2023-05-08 11:45 | ED.GENADULT ---
HPI - General Adult General Chief complaint: Psychiatric Symptoms Stated complaint: HI SI Time Seen by Provider: 05/08/23 11:42 Source: patient and EMS Mode of arrival: EMS Limitations: no limitations History of Present Illness HPI narrative: Patient is a 57 year old assigned female at with a history of mood disorder presenting to the emergency department today with suicidal and homicidal ideation. Patient states that she has had thoughts of hurting herself and others over the last few days. Patient denies any dizziness, lightheadedness, abdominal pain, nausea, vomiting, fever, chills, blurry vision, double vision, loss of vision, chest pain, difficulty breathing, shortness of breath, back pain, night sweats, pain with urination, increased urinary frequency, increased urinary urgency, blood in her urine or stool, syncope or a near syncopal episode, recent trauma or falls, bowel incontinence, bladder incontinence, bowel retention, bladder retention, or any other complaints at this time. Onset (ago): day(s) Relieving factors: none Exacerbating factors: none Associated symptoms: denies other symptoms Treatments prior to arrival: none Related Data Home Medications Medication Instructions Recorded Confirmed diclofenac sodium 1 % topical gel 4 g topical QID PRN pain 04/20/23 04/20/23 Previous Rx's Medication Instructions Recorded albuterol sulfate 90 mcg/actuation 1 inh inhalation QID PRN wheezing 04/27/23 aerosol inhaler #6.7 grams aspirin 81 mg chewable tablet 81 mg PO DAILY #30 tabs 04/27/23 atorvastatin 40 mg tablet 40 mg PO BEDTIME #30 tabs 04/27/23 clonazepam 0.5 mg tablet 0.5 mg PO BID #60 tabs 04/27/23 folic acid 1 mg tablet 1 mg PO DAILY #30 tabs 04/27/23 gabapentin 400 mg capsule 400 mg PO TID #90 caps 04/27/23 insulin glargine 100 unit/mL (3 15 unit (0.15 mL) subcut DAILY #3 04/27/23 mL) subcutaneous pen mL insulin lispro 100 unit/mL 5 unit (0.05 mL) subcut QIDACHS 04/27/23 subcutaneous solution (Admelog #10 mL U-100 Insulin lispro) insulin lispro 100 unit/mL See Protocol subcut QIDACHS #10 mL 04/27/23 subcutaneous solution (Admelog U-100 Insulin lispro) lisinopril 10 mg tablet 10 mg PO DAILY #30 tabs 04/27/23 melatonin 3 mg tablet 6 mg (2 x 3 mg) PO BEDTIME PRN 04/27/23 Insomnia #60 tabs metoprolol tartrate 25 mg tablet 25 mg PO DAILY #30 tabs 04/27/23 omeprazole 40 mg capsule,delayed 40 mg PO DAILY@0630 #30 caps 04/27/23 release risperidone 1 mg tablet 1 mg PO BID #30 tabs 04/27/23 Allergies Allergy/AdvReac Type Severity Reaction Status Date / Time bee pollen Allergy Anaphylaxis Verified 05/08/23 12:11 Review of Systems Constitutional: Constitutional: Reports no additional constitutional complaints, Denies chills, Denies fever(s) and Denies night sweats Eyes: Eyes: Reports no additional eye complaints, Denies blurry vision, Denies change in vision, Denies diplopia, Denies eye discharge, Denies loss of vision and Denies eye pain ENT: Denies dizziness Cardiovascular: Cardiovascular: Reports no additional cardiovascular complaints, Denies chest pain, Denies lightheadedness, Denies Loss of Consciousness and Denies dyspnea Respiratory: Respiratory: Reports no additional respiratory complaints and Denies dyspnea Gastrointestinal: Gastrointestinal: Reports no additional gastrointestinal complaints, Denies abdominal pain, Denies melena, Denies hematochezia, Denies change in bowel habits and Denies change in stool character Genitourinary: Genitourinary: Denies hematuria, Denies urinary frequency, Denies dysuria, Denies urinary incontinence, Denies urinary hesitancy and Denies urinary urgency Musculoskeletal: Musculoskeletal: Reports no additional musculoskeletal complaints, Denies numbness and Denies tingling Neurologic: Denies dizziness, Denies loss of vision, Denies numbness and Denies tingling Psychiatric: Psychiatric: Reports homicidal ideation and Reports suicidal ideation Endocrine: Endocrine: Reports no additional endocrine complaints Hematologic/Lymphatic: Hematologic/Lymphatic: Reports no additional hematologic/lymphatic complaints Allergic/Immunologic: Allergic/Immunologic: Reports no additional allergic/immunologic complaints PMFSH Past Medical History Attestation statement: The following information was validated with the patient. Source: old records reviewed and nursing notes reviewed Medical History Vertigo Diabetes HTN (hypertension) GERD (gastroesophageal reflux disease) Social History Social History Household Members: Family Housing: House Do you presently have visiting nurse or other home services: Yes Alcohol intake: former Patient Tobacco Use Status: Former Tobacco user Quit Date: 8 months ago Advance Directives: No Advance Directives Information Provided: No service: No Sexual orientation: Straight/Heterosexual Physical Exam ED Vital Signs: Vital Signs - 24 hr 05/08/23 11:50 Temperature 100.1 F Pulse Rate 86 Respiratory Rate 16 Blood Pressure 105/62 Pulse Oximetry 99 Oxygen Delivery Method Room Air BMI result Body Mass Index 32.0 Const General: cooperative, no acute distress, alert and awake Nutritional Appearance: well nourished Orientation/consciousness: patient oriented x3 Limitations: no limitations HENMT Head: Yes normal to inspection and Yes atraumatic Ears: hearing grossly normal bilaterally and external ears normal General nose exam: Normal external nose present, no nasal discharge noted and no epistaxis Face and sinus: Yes normal facial exam, No abrasion and No laceration Mouth: Normal oral and palatal mucosa present, no drooling and no muffled voice Eyes General: appearance normal, both eyes and all related structures Periorbital: periorbital findings normal Eyelids: Yes eyelids normal Conjunctivae: conjunctivae normal Pupils: Equal, round and reactive pupils present EOM: EOMs intact bilaterally Neck Neck: Yes normal visual inspection, Yes full ROM and Yes no lymphadenopathy Chest Chest palpation & inspection: normal inspection of the chest Resp Effort & Inspection: normal respiratory effort and able to speak in complete sentences GI Inspection: Yes normal to inspection Neuro General: patient oriented x3 and moves all extremities Cranial nerves: Yes Equal, round and reactive pupils present Cognition (Neuro): normal cognition Motor exam (neuro): 5/5 motor strength present throughout Sensory Exam: Normal double simultaneous stimulation for sensation Coordination: [id number] test normal Extrem General: Yes normal to inspection, Yes full ROM and Yes capillary refill normal Psych Appearance: grossly normal Mental Status: mental status grossly normal Affect: normal affect Attitude: cooperative Thought process: Normal thought process present Thought content: Normal thought content present Insight: Good insight present (Psych) Medical Decision Making Medical Decision Making MDM Narrative: Patient is a 57 year old assigned female at with a history of mood disorder presenting to the emergency department today with SI and HI statements. Patient's physical exam was unremarkable. Patient's blood work was unremarkable. Patient's urine is pending. I explained my physical exam findings as well as all test results to the patient. I answered all questions asked by the patient. Patient's disposition is pending CARE evaluation. Differential Diagnosis Differential Diagnoses: The differential diagnosis associated with the presentation includes SI HI Crisis Admission/Observation Consideration of admission/observation: Escalation of care including admission/observation considered Patient's disposition is pending CARE team evaluation. Lab Data [facility] Lab Attestation statement: I reviewed the patient's lab results. My interpretation of these results are in the [facility] Rationale portion of this note. 05/08/23 12:26 05/08/23 12:26 Labs: Lab Results 05/08/23 05/08/23 Range/Units 12:14 12:26 WBC 11.8 H (4.8-10.8) X10*3/uL RBC 3.71 L (4.20-5.50) X10*6/uL Hgb 11.3 L (12.0-16.0) g/dl Hct 32.7 L (37.0-47.0) % MCV 88.1 (80.0-98.0) fL MCH 30.5 (27.0-33.0) pg MCHC 34.6 (31.0-35.0) g/dl RDW 13.6 (11.0-16.0) % Plt Count 464 H (160-400) X10*3/uL MPV 8.5 L (9.4-12.3) fL Immature Gran % (Auto) 0.3 (0.0-0.4) % Neut % (Auto) 52.0 (45-73) % Lymph % (Auto) 38.7 (20-40) % [place]ie % (Auto) 5.3 (2-11) % Eos % (Auto) 3.1 (0-4) % Baso % (Auto) 0.6 (0-2) % Lymph # (Auto) 4.6 (1.2-4.9) X10*3/uL Davie # (Auto) 0.6 (0.1-1.2) X10*3/uL Eos # (Auto) 0.4 (0.0-0.4) X10*3/uL Baso # (Auto) 0.1 (0.0-0.2) X10*3/uL Abs Immat Gran (auto) 0.03 (0.00-0.03) X10*3/uL Absolute Neuts (auto) 6.2 (2.0-8.3) x10*3/uL Absolute Nucleated RBC 0.000 (0.0-0.012) X10*3/uL Nucleated RBC % (auto) 0.0 (0.0-0.2) /100WBC Sodium 135 (135-145) mmol/L Potassium 3.8 D (3.3-5.1) mmol/L Chloride 103 (96-108) mmol/L Carbon Dioxide 23 (22-29) mmol/L Anion Gap 13 (12-20) BUN 14 (9-16) mg/dL Creatinine 0.73 (0.5-1.4) mg/dL Estim Creat Clear Calc 76.5 Estimated GFR > 60 POC Glucose 94 (60-115) mg/dL Random Glucose 97 (60-115) mg/dL Calcium 9.7 (8.4-10.2) mg/dL Total Bilirubin 0.4 (0.0-1.0) mg/dL AST 23 (5-31) U/L ALT 23 (0-31) U/L Alkaline Phosphatase 95 (39-117) U/L Total Protein 7.6 (6.5-8.0) g/dL Albumin 3.9 (3.5-5.0) g/dL Salicylates < 5.0 L (15-30) mg/dL Acetaminophen < 3 (<30) mcg/mL Ethyl Alcohol < 10 mg/dL COVID-19 (LIS) Negative (Negative) COVID-19 Clin Com See Note Independent Historian Clinical information obtained from an independent historian. History obtained from or confirmed by: EMS (EMS provided additional history and confirmed the history provided by the patient.) Discharge Plan Discharge Clinical Impression: Suicidal ideation Patient Disposition: Still a Patient Prescriptions: No Action diclofenac sodium 1 % gel 4 g topical QID PRN (Reason: pain) albuterol sulfate 90 mcg/actuation HFA aerosol inhaler 1 inh inhalation QID PRN (Reason: wheezing) Qty: 6.7 0RF atorvastatin 40 mg Tablet 40 mg PO BEDTIME Qty: 30 0RF clonazepam 0.5 mg Tablet 0.5 mg PO BID Qty: 60 0RF gabapentin 400 mg Capsule 400 mg PO TID Qty: 90 0RF omeprazole 40 mg Capsule,Delayed Release(Dr/Ec) 40 mg PO DAILY@0630 Qty: 30 0RF lisinopril 10 mg Tablet 10 mg PO DAILY Qty: 30 0RF Protocol: Hold for SBP< HOLD for SBP < : 90 aspirin 81 mg Tablet,Chewable 81 mg PO DAILY Qty: 30 0RF risperidone 1 mg Tablet 1 mg PO BID Qty: 30 0RF metoprolol tartrate 25 mg Tablet 25 mg PO DAILY Qty: 30 0RF Protocol: Hold for SBP/HR < HOLD for SBP < : 90 HOLD for HR < : 60 insulin glargine 100 unit/mL (3 mL) insulin pen 15 unit subcut DAILY Qty: 3 0RF melatonin 3 mg Tablet 6 mg PO BEDTIME PRN (Reason: Insomnia) Qty: 60 0RF folic acid 1 mg Tablet 1 mg PO DAILY Qty: 30 0RF insulin lispro [Admelog U-100 Insulin lispro] 100 unit/mL Solution See Protocol subcut QIDACHS Qty: 10 0RF Protocol: Insulin Correction Scale Less than or equal to 110 ---- Give (units): 0 111 to 150 Give (units): 0 151 to 200 Give (units): 2 201 to 250 Give (units): 4 251 to 300 Give (units): 6 301 to 350 Give (units): 8 Greater than 350 Give (units): 10 Call MD if Blood Glucose > : 350 insulin lispro [Admelog U-100 Insulin lispro] 100 unit/mL Solution 5 unit subcut QIDACHS Qty: 10 0RF Interventions: [place]-Suicide Risk Severity Scale Last Done: 05/08/23 12:11
[2023-05-08 11:50] VITALS: BP 105/62; BP 150/84; PULSE 86; PULSE 98; RESP 16; TEMP 37.8; O2SAT 95; O2SAT 99; BMI 32.0
[2023-05-08 12:18] LABS: Glucose, Whole Blood 94 mg/dL (60-115)
[2023-05-08 12:38] LABS: MANUAL DIFF FLAG NO
[2023-05-08 12:39] LABS: Basophils Absolute Auto 0.1 X10*3/uL (0.0-0.2); Basophils Percent Auto 0.6 % (0-2); Eosinophils Absolute Auto 0.4 X10*3/uL (0.0-0.4); Eosinophils Percent Auto 3.1 % (0-4); Hematocrit 32.7 % (37.0-47.0); Hemoglobin 11.3 g/dl (12.0-16.0); Imm Gran Abs Auto 0.03 X10*3/uL (0.00-0.03); Imm Gran Pct Auto 0.3 % (0.0-0.4); Lymphocytes Absolute Auto 4.6 X10*3/uL (1.2-4.9); Lymphocytes Percent Auto 38.7 % (20-40); Mean Corpuscular HGB Conc 34.6 g/dl (31.0-35.0); Mean Corpuscular Hemoglobin 30.5 pg (27.0-33.0); Mean Corpuscular Volume 88.1 fL (80.0-98.0); Mean Platelet Volume 8.5 fL (9.4-12.3); Monocytes Absolute Auto 0.6 X10*3/uL (0.1-1.2); Monocytes Percent Auto 5.3 % (2-11); Neutrophils Absolute Auto 6.2 x10*3/uL (2.0-8.3); Platelet Count 464 X10*3/uL (160-400); Red Blood Count 3.71 X10*6/uL (4.20-5.50); Red Cell Distribution Width 13.6 % (11.0-16.0); White Blood Count 11.8 X10*3/uL (4.8-10.8)
[2023-05-08 12:52] LABS: COVID-19 Test Negative (Negative); IDNOW Serial# 08D9AD1C
--- NOTE | 2023-05-08 12:57 | MHC.EDTECH ---
Patient unable to give urine sample. Patient states she will let us know the next time she needs to use the bathroom so we can obtain the sample.
[2023-05-08 12:58] LABS: Acetaminophen LAB < 3 mcg/mL (<30); Alanine Aminotransferase 23 U/L (0-31); Albumin Level 3.9 g/dL (3.5-5.0); Alkaline Phosphatase 95 U/L (39-117); Anion Gap 13 (12-20); Aspartate Amino Transferase 23 U/L (5-31); Bilirubin Total 0.4 mg/dL (0.0-1.0); Blood Urea Nitrogen 14 mg/dL (9-16); Calcium 9.7 mg/dL (8.4-10.2); Carbon Dioxide 23 mmol/L (22-29); Chloride 103 mmol/L (96-108); Creatinine Clr Calc Pharmacy 76.5; Estimated Glomerular Filt Rate > 60; Ethanol < 10 mg/dL; Glucose Random 97 mg/dL (60-115); Potassium 3.8 mmol/L (3.3-5.1); Salicylate < 5.0 mg/dL (15-30); Sodium 135 mmol/L (135-145); Total Protein 7.6 g/dL (6.5-8.0)
--- NOTE | 2023-05-08 14:53 | PC.NURSE ---
Pt arrived via ambulance, per ems pt made si and hi statements to [facility] nurse during follow-up visit at the [facility] where she resides. She denies making those statements. She denies si/hi at this time. A+O X4, she denies pain.
--- NOTE | 2023-05-08 16:41 | PC.NURSE ---
Lita Cason, ([phone]) the Community Behavioral Health Clinician from [facility], called for an update on the pt's status. She reports that she called 911 d/t concerns of the pt's irrational behavior. She said the pt was not acting her baseline. She wants to be notified with updates about the pt's dispo plans.
[2023-05-08] MEDS: Acetaminophen 325 MG TABLET 650 MG PO (16:57)
--- NOTE | 2023-05-08 17:03 | PC.NURSE ---
Tylenol requested by pt for 10/10 bilat leg pain, med given as documented. Will reassess.
[2023-05-08 17:04] LABS: Appearance Urine Clear; Color Urine Yellow; Glucose Urine UA Negative (Negative); Leukocyte Esterase Urine Negative (Negative); Nitrite Urine Negative (Negative); PH 5.5 (5.0-9.0); Urine Blood Negative (Negative); Urine Ketones Negative (Negative); Urine Protein Negative (Neg-Trace)
[2023-05-08 17:11] LABS: Amphetamine Screen Urine Not Detected (Not Detect); Barbiturates, Urine Not Detected (Not Detect); Benzodiazepines Screen Urine Not Detected (Not Detect); Cannabinoid Screen Urine Not Detected (Not Detect); Cocaine Screen Urine POSITIVE (Not Detect); Fentanyl, urine Not Detected (Not Detect); Opiate Screen Urine Not Detected (Not Detect); Phencyclidine Screen Urine Not Detected (Not Detect)
--- NOTE | 2023-05-08 19:16 | PC.NURSE ---
patient appears to remain at rest at present some redirections needed regarding compliance with unit rules, patient periodically irritable.
--- NOTE | 2023-05-08 21:06 | PHA.MEDREC ---
Pharmacy Consult ? Medication Reconciliation Pharmacy has reviewed the medication reconciliation completed by Robbi. Patient recently discharge 04/27/23. Ruma San, SuzanneD
[2023-05-08 21:45] VITALS: BP 119/62; PULSE 95; RESP 18; TEMP 36.8; O2SAT 95
[2023-05-08 22:12] LABS: Glucose, Whole Blood 129 mg/dL (60-115)
[2023-05-08] MEDS: Insulin Lispro 100 UNIT/ML 3 ML VIAL SUBCUT (22:20)
[2023-05-08] MEDS: Atorvastatin Calcium 40 MG TABLET PO (22:20)
[2023-05-08] MEDS: Gabapentin 400 MG CAPSULE PO (22:21)
[2023-05-08] MEDS: clonazePAM 0.5 MG TABLET PO (22:21)
[2023-05-08] MEDS: Thiamine HCL 100 MG TABLET PO (22:21)
[2023-05-08] MEDS: Folic Acid 1 MG TABLET PO (22:21)
[2023-05-08] MEDS: risperiDONE 1 MG TABLET PO (22:21)
--- NOTE | 2023-05-09 | ECG_ITS ---
Test Reason : check qt Blood Pressure : / mmHG Vent. Rate : 095 BPM Atrial Rate : 095 BPM P-R Int : 194 ms QRS Dur : 084 ms QT Int : 366 ms P-R-T Axes : 045 010 031 degrees QTc Int : 459 ms Sinus rhythm with Premature supraventricular complexes Otherwise normal ECG When compared with ECG of 07-APR-2023 12:50, Premature supraventricular complexes are now Present Referred By: Margo Barrow Electronically Signed By:SOO LANCASTER
[2023-05-09 06:27] VITALS: BP 137/75; PULSE 95; RESP 17; TEMP 36.4; O2SAT 100
--- NOTE | 2023-05-09 07:09 | PC.NURSE ---
Assumed care of patient at 0700, patient appears to be sleeping, respirations even and unlabored, no apparent distress. Continue plan of care for [facility] 12 inpatient bedsearch
[2023-05-09] MEDS: Omeprazole 40 MG CAPSULE.DR PO (07:26)
[2023-05-09 07:34] LABS: Glucose, Whole Blood 87 mg/dL (60-115)
[2023-05-09] MEDS: Aspirin 81 MG TAB.CHEW PO (08:16)
[2023-05-09] MEDS: clonazePAM 0.5 MG TABLET PO ×2 (08:16→20:34)
[2023-05-09] MEDS: Gabapentin 400 MG CAPSULE PO ×3 (08:17→20:34)
[2023-05-09] MEDS: lisinopriL 10 MG TABLET PO (08:17)
[2023-05-09] MEDS: Folic Acid 1 MG TABLET PO (08:17)
[2023-05-09] MEDS: Thiamine HCL 100 MG TABLET PO (08:17)
[2023-05-09] MEDS: risperiDONE 1 MG TABLET PO ×2 (08:17→20:32)
[2023-05-09] MEDS: Metoprolol Tartrate 25 MG TABLET PO (08:27)
--- NOTE | 2023-05-09 08:40 | PC.NURSE ---
Patient's morning POC was 87. Patient refusing morning breakfast stating I'm not hungry, I don't feel like eating too much . To avoid dropping POC, all insulin was held this am.
[2023-05-09] MEDS: Acetaminophen 325 MG TABLET 650 MG PO ×2 (09:09→16:31)
--- NOTE | 2023-05-09 10:26 | PC.NURSE ---
This RN spoke with Lita from [facility] regarding Donna's status. Updated on plan of care. Lita also provided this RN with Donna's daughter's phone number [phone]
--- NOTE | 2023-05-09 12:31 | PC.NURSE ---
insulin not given yet due to lunches not coming until 1pm.
[2023-05-09 12:50] LABS: Glucose, Whole Blood 119 mg/dL (60-115)
[2023-05-09 14:30] VITALS: BMI 32.7
--- NOTE | 2023-05-09 16:05 | PC.NURSE ---
scheduled insulin held due to POC 133. sliding scale insulin not needed. provider notified.
[2023-05-09 16:07] LABS: Glucose, Whole Blood 133 mg/dL (60-115)
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
[2023-05-09 18:00] VITALS: BP 118/58; PULSE 95; RESP 18; TEMP 35.8; O2SAT 100
[2023-05-09 20:20] LABS: Glucose, Whole Blood 135 mg/dL (60-115)
[2023-05-09] MEDS: Atorvastatin Calcium 40 MG TABLET PO (20:33)
[2023-05-10] MEDS: Melatonin 3 MG TABLET 6 MG PO (02:01)
[2023-05-10] MEDS: Acetaminophen 325 MG TABLET 650 MG PO ×4 (02:03→21:13)
[2023-05-10] MEDS: traZODone HCL 50 MG TABLET PO ×2 (02:03→23:34)
[2023-05-10] MEDS: hydrOXYzine HCL 25 MG TABLET PO (02:04)
[2023-05-10] MEDS: Omeprazole 40 MG CAPSULE.DR PO (05:50)
[2023-05-10 06:24] LABS: Glucose, Whole Blood 141 mg/dL (60-115)
[2023-05-10 07:52] VITALS: BP 155/78; PULSE 98; RESP 16; TEMP 36.2; O2SAT 98
[2023-05-10] MEDS: lisinopriL 10 MG TABLET PO (07:57)
[2023-05-10] MEDS: Metoprolol Tartrate 25 MG TABLET PO (07:57)
[2023-05-10] MEDS: Aspirin 81 MG TAB.CHEW PO (07:57)
[2023-05-10] MEDS: risperiDONE 1 MG TABLET PO ×2 (07:57→21:10)
[2023-05-10] MEDS: Gabapentin 400 MG CAPSULE PO ×3 (07:57→21:10)
[2023-05-10] MEDS: clonazePAM 0.5 MG TABLET PO ×2 (07:57→21:09)
[2023-05-10] MEDS: Folic Acid 1 MG TABLET PO (07:57)
[2023-05-10] MEDS: Insulin Glargine,Hum.rec.anlog 100 UNIT/ML 10 ML VIAL 15 UNIT SUBCUT (07:58)
[2023-05-10] MEDS: Insulin Lispro 100 UNIT/ML 3 ML VIAL SUBCUT ×3 (07:58→21:08)
[2023-05-10] MEDS: Thiamine HCL 100 MG TABLET PO (07:58)
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
[2023-05-10 09:09] LABS: Alanine Aminotransferase 19 U/L (0-31); Albumin Level 3.7 g/dL (3.5-5.0); Alkaline Phosphatase 86 U/L (39-117); Anion Gap 13 (12-20); Aspartate Amino Transferase 16 U/L (5-31); Bilirubin Total 0.2 mg/dL (0.0-1.0); Blood Urea Nitrogen 15 mg/dL (9-16); Calcium 9.4 mg/dL (8.4-10.2); Carbon Dioxide 23 mmol/L (22-29); Chloride 103 mmol/L (96-108); Cholesterol 173 mg/dL (<200); Creatinine Clr Calc Pharmacy 91.1; Estimated Glomerular Filt Rate > 60; Glucose Fasting 133 mg/dL (60-99); HDL Cholesterol 46 mg/dL (>40); LDL Cholesterol Calculated 94 mg/dL (<100); Potassium 4.3 mmol/L (3.3-5.1); Sodium 135 mmol/L (135-145); Triglycerides 167 mg/dL (<150)
[2023-05-10 11:47] LABS: Glucose, Whole Blood 127 mg/dL (60-115)
--- NOTE | 2023-05-10 11:54 | PC.NURSE ---
Donna refused 5 units lispro with lunch as she is unsure why this is ordered; MD Wade notified and asked to clarify order.
[2023-05-10 16:22] LABS: Glucose, Whole Blood 146 mg/dL (60-115)
[2023-05-10 19:00] VITALS: BP 123/62; PULSE 93; RESP 16; TEMP 36.2; O2SAT 99
[2023-05-10] MEDS: Atorvastatin Calcium 40 MG TABLET PO (21:10)
[2023-05-10 21:47] LABS: Glucose, Whole Blood 164 mg/dL (60-115)
[2023-05-11] MEDS: Acetaminophen 325 MG TABLET 650 MG PO ×3 (03:12→21:19)
[2023-05-11] MEDS: Omeprazole 40 MG CAPSULE.DR PO (05:55)
[2023-05-11 06:42] LABS: Glucose, Whole Blood 174 mg/dL (60-115)
[2023-05-11 07:00] VITALS: BMI 34.0
[2023-05-11 08:23] VITALS: BP 127/64; PULSE 102; RESP 16; TEMP 36; O2SAT 98
[2023-05-11] MEDS: Insulin Glargine,Hum.rec.anlog 100 UNIT/ML 10 ML VIAL 15 UNIT SUBCUT (08:30)
[2023-05-11] MEDS: Insulin Lispro 100 UNIT/ML 3 ML VIAL SUBCUT ×6 (08:30→21:18)
[2023-05-11] MEDS: Aspirin 81 MG TAB.CHEW PO (08:32)
[2023-05-11] MEDS: clonazePAM 0.5 MG TABLET PO ×2 (08:32→21:20)
[2023-05-11] MEDS: Metoprolol Tartrate 25 MG TABLET PO (08:32)
[2023-05-11] MEDS: Gabapentin 400 MG CAPSULE PO ×3 (08:32→21:20)
[2023-05-11] MEDS: risperiDONE 1 MG TABLET PO ×2 (08:33→21:19)
[2023-05-11] MEDS: Thiamine HCL 100 MG TABLET PO (08:33)
[2023-05-11] MEDS: Folic Acid 1 MG TABLET PO (08:33)
[2023-05-11] MEDS: lisinopriL 10 MG TABLET PO (08:33)
[2023-05-11 11:43] LABS: Glucose, Whole Blood 146 mg/dL (60-115)
--- NOTE | 2023-05-11 15:41 | P.PNPSI_ITS ---
Subjective Subjective Date of Service: 05/11/23 Reason For Visit: SI Subjective Notes: Conditional Voluntary and 3 Day Interim History: The nursing staff reported the patient refused her list broke, her fasting blood sugar has been stable. She had been seen with expansive affect and she slept well. The occupational therapist reported yes she scored 3.2 on the Wilfredo test and 23/30 on [place] on the last admission a few days ago. On interview the patient denies new symptoms she states that she is feeling better but complains of edema and I am ordering a hospitalist consult. Easily redirectable. Mental Status Exam Mental Status Exam Patient Appearance: Well Grooomed and Appropriate Patient Orientation: Person and Situation Level of Consciousness: Awake and Appropriate Patient Behavior: Guarded and Cooperative Mood Description: Withdrawn Affect Description: Constricted Patient Cognition Impaired: Yes Ability to Follow Directions: Good Speech Pattern: Clear Hallucinations: None Delusions: Ideas of Reference Thought Process: Distracted and Slowed Thinking Thought Content: positive for [place] and positive for Poverty of Content Judgement: Fair Diagnostics Vital Signs (24Hr): Vital Signs - 24 hr 05/10/23 19:00 05/11/23 08:23 Temperature 97.1 F 96.8 F Pulse Rate 93 102 H Respiratory Rate 16 16 Blood Pressure 123/62 127/64 Pulse Oximetry 99 98 Oxygen Delivery Method Room Air Room Air BMI result Body Mass Index 34.0 Labs 05/08/23 12:26 05/10/23 08:10 Labs: Laboratory Results - last 48 hr 05/09/23 05/09/23 05/10/23 16:01 19:57 06:16 Hold Purple Top Sodium Potassium Chloride Carbon Dioxide Anion Gap BUN Creatinine Estim Creat Clear Calc Estimated GFR POC Glucose 133 H 135 H 141 H Fasting Glucose Calcium Total Bilirubin AST ALT Alkaline Phosphatase Total Protein Albumin Triglycerides Cholesterol LDL Cholesterol, Calc HDL Cholesterol 05/10/23 05/10/23 05/10/23 08:10 11:40 16:12 Hold Purple Top SEE NOTE Sodium 135 Potassium 4.3 Chloride 103 Carbon Dioxide 23 Anion Gap 13 BUN 15 Creatinine 0.62 Estim Creat Clear Calc 91.1 Estimated GFR > 60 POC Glucose 127 H 146 H Fasting Glucose 133 H Calcium 9.4 Total Bilirubin 0.2 AST 16 ALT 19 Alkaline Phosphatase 86 Total Protein 7.0 Albumin 3.7 Triglycerides 167 H Cholesterol 173 LDL Cholesterol, Calc 94 HDL Cholesterol 46 05/10/23 05/11/2305/10/24 20:09 06:31 11:39 Hold Purple Top Sodium Potassium Chloride Carbon Dioxide Anion Gap BUN Creatinine Estim Creat Clear Calc Estimated GFR POC Glucose 164 H 174 H 146 H Fasting Glucose Calcium Total Bilirubin AST ALT Alkaline Phosphatase Total Protein Albumin Triglycerides Cholesterol LDL Cholesterol, Calc HDL Cholesterol Medications Medications Current Medications Acetaminophen (Acetaminophen 325 Mg Tablet) 650 mg PO Q6H PRN PRN Reason: Headache/Pain Mild Scale (1-3) Last Admin: 05/11/23 14:06 Dose: 650 mg Al Hydroxide/Mg Hydroxide (Magnesium Hydrox/Alum Hydrox 30 Ml Oral.Susp) 30 ml PO Q6H PRN PRN Reason: Heartburn/Nausea Albuterol Sulfate (Albuterol Sulfate 90 Mcg 8 Gm Inhaler) 1 puff INHALE QID PRN PRN Reason: wheezing Aspirin (Aspirin 81 Mg Tab.Chew) 81 mg PO DAILY [facility] Last Admin: 05/11/23 08:32 Dose: 81 mg Atorvastatin Calcium (Atorvastatin Calcium 40 Mg Tablet) 40 mg PO BEDTIME [facility] Last Admin: 05/10/23 21:10 Dose: 40 mg Clonazepam (Clonazepam 0.5 Mg Tablet) 0.5 mg PO BID [facility] Last Admin: 05/11/23 08:32 Dose: 0.5 mg Folic Acid (Folic Acid 1 Mg Tablet) 1 mg PO DAILY [facility] Last Admin: 05/11/23 08:33 Dose: 1 mg Gabapentin (Gabapentin 400 Mg Capsule) 400 mg PO TID [facility] Last Admin: 05/11/23 14:07 Dose: 400 mg Hydroxyzine HCl (Hydroxyzine Hcl 25 Mg Tablet) 25 mg PO Q6H PRN PRN Reason: Anxiety Last Admin: 05/10/23 02:04 Dose: 25 mg Insulin Glargine (Insulin Glargine,Hum.Rec.Anlog 100 Unit/Ml 10 Ml Vial) 15 unit SUBCUT DAILY [facility] Last Admin: 05/11/23 08:30 Dose: 15 unit Insulin Human Lispro (Insulin Lispro 100 Unit/Ml 3 Ml Vial) 0 unit SUBCUT QIDACHS [facility]; Protocol Last Admin: 05/11/23 11:46 Dose: Not Given Insulin Human Lispro (Insulin Lispro 100 Unit/Ml 3 Ml Vial) 5 unit SUBCUT QIDACHS [facility] Last Admin: 05/11/23 11:48 Dose: 5 unit Lisinopril (Lisinopril 10 Mg Tablet) 10 mg PO DAILY [facility]; Protocol Last Admin: 05/11/23 08:33 Dose: 10 mg Magnesium Hydroxide (Milk Of Magnesia 30 Ml Oral.Susp) 30 ml PO DAILY PRN PRN Reason: Constipation Melatonin (Melatonin 3 Mg Tablet) 6 mg PO BEDTIME PRN PRN Reason: Insomnia Last Admin: 05/10/23 02:01 Dose: 6 mg Metoprolol Tartrate (Metoprolol Tartrate 25 Mg Tablet) 25 mg PO DAILY [facility]; Protocol Last Admin: 05/11/23 08:32 Dose: 25 mg Omeprazole (Omeprazole 40 Mg Capsule.Dr) 40 mg PO DAILY@0630 [facility] Last Admin: 05/11/23 05:55 Dose: 40 mg Risperidone (Risperidone 1 Mg Tablet) 1 mg PO BID [facility] Last Admin: 05/11/23 08:33 Dose: 1 mg Thiamine HCl (Thiamine Hcl 100 Mg Tablet) 100 mg PO DAILY [facility] Last Admin: 05/11/23 08:33 Dose: 100 mg Trazodone HCl (Trazodone Hcl 50 Mg Tablet) 50 mg PO BEDTIME PRN PRN Reason: Insomnia Last Admin: 05/10/23 23:34 Dose: 50 mg Allergies Allergies Allergy/AdvReac Type Severity Reaction Status Date / Time bee pollen Allergy Anaphylaxis Verified 05/08/23 12:11 Assessment & Plan Assessment & Plan (1) Suicidal ideation: Status: Acute Code(s): R45.851 - Suicidal ideations (2) Mood disorder: Status: Acute Code(s): F39 - Unspecified mood [affective] disorder (3) Alcohol use disorder: Status: Acute Code(s): F10.90 - Alcohol use, unspecified, uncomplicated (4) Cocaine use disorder: Status: Acute Code(s): F14.10 - Cocaine abuse, uncomplicated Plan The patient is a middle-aged American descent female, , with a past history of prior admissions into the hospital for psychosis, disorganization alcohol and cocaine abuse, chronically homeless with unstable housing, removed from a hotel since she was disorganized. She tested positive to cocaine in the unit. She signed a 3 day notice. Plan 1. Gather collateral information. 2. Continue with regular medications. 3. At this moment on 50 minutes checks since the patient is able to contract for safety. 4. Continue with medical workout. Hospitalist consult ordered on May 10 for edema Reason for continued inpatient stay Substantial Risk for: inability to function, rapid decompensation and med/psych decompensation Time Spent With Patient Time: Total time managing care of this patient today __20__ minutes.
--- NOTE | 2023-05-11 15:47 | PC.NURSE ---
Patient complaining of painful feet and swelling of the lower extremities. Has had TEDS in the past but doesn't like wearing them. Hospitalist consult ordered.
[2023-05-11 16:33] LABS: Glucose, Whole Blood 175 mg/dL (60-115)
[2023-05-11 18:00] VITALS: BP 126/64; PULSE 100; RESP 16; TEMP 36.2; O2SAT 99
--- NOTE | 2023-05-11 18:07 | PM.EVENT ---
Event Note Date of Service: 05/11/23 Event Note: Pt is a 57-year-old female with a PMH significant for?HTN, possible TIA, vertigo, peripheral neuropathy, migraine, anxiety, and bipolar disorder who was seen for medical consult to rule out cellulitis for lower extremity edema. Physical examination reveals 3+ bilateral lower leg edema without erythema or warmth. Suspicion very low for cellulitis. Patient has had chronic lower leg edema quite some time now. Workup in the past for DVT have been negative, including including lower leg ultrasounds on 02/10/2023 and 04/05/2023. Likely secondary to venous insufficiency. Patient previously on hydrochlorothiazide and Lasix but these were stopped during last admission due to patient having hyponatremia. Would not suggest resuming as patient's sodium was 135 on 05/10/2023. Patient should be encouraged to wear compression stockings and elevate feet while in bed. Also encourage ambulation as much as possible. There is no indication for antibiotics at this time. Time Spent With Patient Time: Total time managing care of this patient today ____ minutes.
[2023-05-11 20:49] LABS: Glucose, Whole Blood 96 mg/dL (60-115)
[2023-05-11] MEDS: Atorvastatin Calcium 40 MG TABLET PO (21:19)
[2023-05-12] MEDS: Acetaminophen 325 MG TABLET 650 MG PO ×3 (05:32→22:27)
[2023-05-12] MEDS: Omeprazole 40 MG CAPSULE.DR PO (05:57)
[2023-05-12 06:00] VITALS: BP 119/67; PULSE 109; RESP 18; TEMP 36.5; O2SAT 99
[2023-05-12 06:36] LABS: Glucose, Whole Blood 157 mg/dL (60-115)
[2023-05-12] MEDS: Insulin Lispro 100 UNIT/ML 3 ML VIAL SUBCUT ×7 (08:50→20:35)
[2023-05-12] MEDS: risperiDONE 1 MG TABLET PO ×2 (08:51→20:34)
[2023-05-12] MEDS: Insulin Glargine,Hum.rec.anlog 100 UNIT/ML 10 ML VIAL 15 UNIT SUBCUT (08:51)
[2023-05-12] MEDS: Aspirin 81 MG TAB.CHEW PO (08:51)
[2023-05-12] MEDS: Folic Acid 1 MG TABLET PO (08:52)
[2023-05-12] MEDS: Metoprolol Tartrate 25 MG TABLET PO (08:52)
[2023-05-12] MEDS: Gabapentin 400 MG CAPSULE PO ×3 (08:52→20:34)
[2023-05-12] MEDS: lisinopriL 10 MG TABLET PO (08:52)
[2023-05-12] MEDS: Thiamine HCL 100 MG TABLET PO (08:52)
[2023-05-12 11:28] LABS: Glucose, Whole Blood 196 mg/dL (60-115)
--- NOTE | 2023-05-12 11:28 | HO.PSYCHPN ---
Subjective Subjective Date of Service: 05/12/23 Reason For Visit: SI Subjective Notes: Conditional Voluntary and 3 Day Interim History: The nursing staff reported the patient had been compliant with medications attending groups social relaxed. She denies issues. The social services manager reported that DMITRIY wants a meeting for disposition. On interview the patient denies new symptoms, she refused to go to a rest home or any other facility. No safety concerns at this moment. Mental Status Exam Mental Status Exam Patient Appearance: Appropriate Patient Orientation: Person and Situation Level of Consciousness: Awake and Appropriate Patient Behavior: Guarded and Passive Mood Description: Calm Affect Description: Constricted Ability to Follow Directions: Good Speech Pattern: Clear Hallucinations: None Delusions: Ideas of Reference Thought Process: Distracted and Slowed Thinking Thought Content: positive for [place] and positive for Poverty of Content Judgement: Poor Diagnostics Vital Signs (24Hr): Vital Signs - 24 hr 05/11/23 18:00 05/12/23 06:00 Temperature 97.2 F 97.7 F Pulse Rate 100 109 H Respiratory Rate 16 18 Blood Pressure 126/64 119/67 Pulse Oximetry 99 99 Oxygen Delivery Method Room Air Room Air BMI result Body Mass Index 34.0 Labs 05/08/23 12:26 05/10/23 08:10 Labs: Laboratory Results - last 48 hr 05/10/23 05/10/23 05/10/23 11:40 16:12 20:09 POC Glucose 127 H 146 H 164 H 05/11/23 05/11/23 05/11/23 06:31 11:39 16:21 POC Glucose 174 H 146 H 175 H 05/11/23 05/12/23 20:32 05:56 POC Glucose 96 157 H Medications Medications Current Medications Acetaminophen (Acetaminophen 325 Mg Tablet) 650 mg PO Q6H PRN PRN Reason: Headache/Pain Mild Scale (1-3) Last Admin: 05/12/23 05:32 Dose: 650 mg Al Hydroxide/Mg Hydroxide (Magnesium Hydrox/Alum Hydrox 30 Ml Oral.Susp) 30 ml PO Q6H PRN PRN Reason: Heartburn/Nausea Albuterol Sulfate (Albuterol Sulfate 90 Mcg 8 Gm Inhaler) 1 puff INHALE QID PRN PRN Reason: wheezing Aspirin (Aspirin 81 Mg Tab.Chew) 81 mg PO DAILY [facility] Last Admin: 05/12/23 08:51 Dose: 81 mg Atorvastatin Calcium (Atorvastatin Calcium 40 Mg Tablet) 40 mg PO BEDTIME [facility] Last Admin: 05/11/23 21:19 Dose: 40 mg Clonazepam (Clonazepam 0.5 Mg Tablet) 0.5 mg PO BID [facility] Last Admin: 05/12/23 08:58 Dose: Not Given Folic Acid (Folic Acid 1 Mg Tablet) 1 mg PO DAILY [facility] Last Admin: 05/12/23 08:52 Dose: 1 mg Gabapentin (Gabapentin 400 Mg Capsule) 400 mg PO TID [facility] Last Admin: 05/12/23 08:52 Dose: 400 mg Hydroxyzine HCl (Hydroxyzine Hcl 25 Mg Tablet) 25 mg PO Q6H PRN PRN Reason: Anxiety Last Admin: 05/10/23 02:04 Dose: 25 mg Insulin Glargine (Insulin Glargine,Hum.Rec.Anlog 100 Unit/Ml 10 Ml Vial) 15 unit SUBCUT DAILY [facility] Last Admin: 05/12/23 08:51 Dose: 15 unit Insulin Human Lispro (Insulin Lispro 100 Unit/Ml 3 Ml Vial) 0 unit SUBCUT QIDACHS [facility]; Protocol Last Admin: 05/12/23 08:51 Dose: 2 unit Insulin Human Lispro (Insulin Lispro 100 Unit/Ml 3 Ml Vial) 5 unit SUBCUT QIDACHS [facility] Last Admin: 05/12/23 08:50 Dose: 5 unit Lisinopril (Lisinopril 10 Mg Tablet) 10 mg PO DAILY [facility]; Protocol Last Admin: 05/12/23 08:52 Dose: 10 mg Magnesium Hydroxide (Milk Of Magnesia 30 Ml Oral.Susp) 30 ml PO DAILY PRN PRN Reason: Constipation Melatonin (Melatonin 3 Mg Tablet) 6 mg PO BEDTIME PRN PRN Reason: Insomnia Last Admin: 05/10/23 02:01 Dose: 6 mg Metoprolol Tartrate (Metoprolol Tartrate 25 Mg Tablet) 25 mg PO DAILY [facility]; Protocol Last Admin: 05/12/23 08:52 Dose: 25 mg Omeprazole (Omeprazole 40 Mg Capsule.Dr) 40 mg PO DAILY@0630 [facility] Last Admin: 05/12/23 05:57 Dose: 40 mg Risperidone (Risperidone 1 Mg Tablet) 1 mg PO BID [facility] Last Admin: 05/12/23 08:51 Dose: 1 mg Thiamine HCl (Thiamine Hcl 100 Mg Tablet) 100 mg PO DAILY [facility] Last Admin: 05/12/23 08:52 Dose: 100 mg Trazodone HCl (Trazodone Hcl 50 Mg Tablet) 50 mg PO BEDTIME PRN PRN Reason: Insomnia Last Admin: 05/10/23 23:34 Dose: 50 mg Allergies Allergies Allergy/AdvReac Type Severity Reaction Status Date / Time bee pollen Allergy Anaphylaxis Verified 05/08/23 12:11 Assessment & Plan Assessment & Plan (1) Suicidal ideation: Status: Acute Code(s): R45.851 - Suicidal ideations (2) Mood disorder: Status: Acute Code(s): F39 - Unspecified mood [affective] disorder (3) Alcohol use disorder: Status: Acute Code(s): F10.90 - Alcohol use, unspecified, uncomplicated (4) Cocaine use disorder: Status: Acute Code(s): F14.10 - Cocaine abuse, uncomplicated Plan The patient is a middle-aged [place] descent female, , with a past history of prior admissions into the hospital for psychosis, disorganization alcohol and cocaine abuse, chronically homeless with unstable housing, removed from a hotel since she was disorganized. She tested positive to cocaine in the unit. She signed a 3 day notice. Plan 1. Gather collateral information. 2. Continue with regular medications. 3. At this moment on 50 minutes checks since the patient is able to contract for safety. 4. Continue with medical workout. Hospitalist consult ordered on May 10 for edema Reason for continued inpatient stay Substantial Risk for: inability to function, rapid decompensation and med/psych decompensation Time Spent With Patient Time: Total time managing care of this patient today __20__ minutes.
[2023-05-12 15:57] LABS: Glucose, Whole Blood 119 mg/dL (60-115)
[2023-05-12 18:00] VITALS: BP 137/67; PULSE 112; RESP 18; TEMP 37; O2SAT 99
[2023-05-12 19:49] LABS: Glucose, Whole Blood 188 mg/dL (60-115)
[2023-05-12] MEDS: Atorvastatin Calcium 40 MG TABLET PO (20:34)
[2023-05-12] MEDS: clonazePAM 0.5 MG TABLET PO (20:34)
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
[2023-05-12] MEDS: traZODone HCL 50 MG TABLET PO (22:27)
[2023-05-12] MEDS: Melatonin 3 MG TABLET 6 MG PO (22:27)
--- NOTE | 2023-05-12 23:45 | PC.NURSE ---
Patient continued complaints of R leg pain and edema throughout evening, supervisor air conditioning installer provider Emily and hospitalist Arlen notified. R ankle x-ray done, new order for Hydrochlorothiazide 12.5 mg daily ordered. PRN Apap administered with positive effect.
[2023-05-13] MEDS: Acetaminophen 325 MG TABLET 650 MG PO ×3 (05:07→21:12)
[2023-05-13] MEDS: Omeprazole 40 MG CAPSULE.DR PO (05:15)
[2023-05-13 06:28] LABS: Glucose, Whole Blood 147 mg/dL (60-115)
[2023-05-13 08:25] VITALS: BP 120/68; PULSE 105; RESP 72; TEMP 36.6; O2SAT 100
[2023-05-13] MEDS: Aspirin 81 MG TAB.CHEW PO (08:50)
[2023-05-13] MEDS: risperiDONE 1 MG TABLET PO ×2 (08:50→21:34)
[2023-05-13] MEDS: Thiamine HCL 100 MG TABLET PO (08:50)
[2023-05-13] MEDS: Gabapentin 400 MG CAPSULE PO ×3 (08:51→21:34)
[2023-05-13] MEDS: lisinopriL 10 MG TABLET PO (08:51)
[2023-05-13] MEDS: Insulin Glargine,Hum.rec.anlog 100 UNIT/ML 10 ML VIAL 15 UNIT SUBCUT (08:51)
[2023-05-13] MEDS: Folic Acid 1 MG TABLET PO (08:51)
[2023-05-13] MEDS: hydroCHLOROthiazide 12.5 MG TABLET PO (08:51)
[2023-05-13] MEDS: Insulin Lispro 100 UNIT/ML 3 ML VIAL SUBCUT ×5 (08:52→21:35)
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
[2023-05-13 11:22] LABS: Glucose, Whole Blood 140 mg/dL (60-115)
[2023-05-13] MEDS: Metoprolol Tartrate 25 MG TABLET PO (11:50)
[2023-05-13 16:15] LABS: Glucose, Whole Blood 130 mg/dL (60-115)
[2023-05-13 18:00] VITALS: BP 122/75; PULSE 105; RESP 18; TEMP 36.2; O2SAT 100
[2023-05-13 19:52] LABS: Glucose, Whole Blood 193 mg/dL (60-115)
[2023-05-13] MEDS: Melatonin 3 MG TABLET 6 MG PO (21:34)
[2023-05-13] MEDS: clonazePAM 0.5 MG TABLET PO (21:34)
[2023-05-13] MEDS: traZODone HCL 50 MG TABLET PO ×2 (21:34→23:38)
[2023-05-13] MEDS: Atorvastatin Calcium 40 MG TABLET PO (21:34)
[2023-05-13] MEDS: hydrOXYzine HCL 25 MG TABLET PO (23:38)
[2023-05-14] MEDS: Acetaminophen 325 MG TABLET 650 MG PO ×2 (03:18→20:27)
[2023-05-14] MEDS: Omeprazole 40 MG CAPSULE.DR PO (05:32)
[2023-05-14 06:25] LABS: Glucose, Whole Blood 161 mg/dL (60-115)
[2023-05-14] MEDS: Insulin Lispro 100 UNIT/ML 3 ML VIAL SUBCUT ×6 (07:39→16:40)
[2023-05-14] MEDS: Insulin Glargine,Hum.rec.anlog 100 UNIT/ML 10 ML VIAL 15 UNIT SUBCUT (07:40)
[2023-05-14 08:22] VITALS: BP 118/76; PULSE 105; RESP 105; TEMP 36.5; O2SAT 98
[2023-05-14] MEDS: risperiDONE 1 MG TABLET PO ×2 (08:25→21:28)
[2023-05-14] MEDS: Thiamine HCL 100 MG TABLET PO (08:25)
[2023-05-14] MEDS: Folic Acid 1 MG TABLET PO (08:25)
[2023-05-14] MEDS: Metoprolol Tartrate 25 MG TABLET PO (08:25)
[2023-05-14] MEDS: hydroCHLOROthiazide 12.5 MG TABLET PO (08:25)
[2023-05-14] MEDS: Gabapentin 400 MG CAPSULE PO ×3 (08:25→20:27)
[2023-05-14] MEDS: lisinopriL 10 MG TABLET PO (08:25)
[2023-05-14] MEDS: Aspirin 81 MG TAB.CHEW PO (08:25)
[2023-05-14 11:37] LABS: Glucose, Whole Blood 184 mg/dL (60-115)
[2023-05-14 16:08] LABS: Glucose, Whole Blood 151 mg/dL (60-115)
[2023-05-14 19:30] VITALS: BP 131/65; PULSE 106; RESP 16; TEMP 36.2; O2SAT 100
[2023-05-14 19:50] LABS: Glucose, Whole Blood 107 mg/dL (60-115)
--- NOTE | 2023-05-14 20:15 | P.PNPSI_ITS ---
Subjective Subjective Date of Service: 05/14/23 Reason For Visit: SI Subjective Notes: Conditional Voluntary Interim History: Patient continues with full affect future oriented she has a 3 day notice looking to be discharged. No psychotic symptoms noted mood unremarkable Medication Compliance: Intermittent Side effects from medications: No Mental Status Exam Mental Status Exam Patient Appearance: Appropriate Patient Orientation: Person, Place and Situation Level of Consciousness: Awake and Appropriate Patient Behavior: Appropriate and Talkative Mood Description: Calm Affect Description: Appropriate Ability to Follow Directions: Good Speech Pattern: Clear Hallucinations: None Delusions: Ideas of Reference Thought Process: Distracted Thought Content: positive for [place] Judgement: Poor Judgement and Insight: Limited insight into present situation denies she was abusing substances no change to above patient future oriented Diagnostics Vital Signs (24Hr): Vital Signs - 24 hr 05/14/23 08:22 Temperature 97.7 F Pulse Rate 105 H Respiratory Rate 105 H Blood Pressure 118/76 Pulse Oximetry 98 Oxygen Delivery Method Room Air BMI result Body Mass Index 34.0 Labs 05/08/23 12:26 05/10/23 08:10 Labs: Laboratory Results - last 48 hr 05/13/23 05/13/23 05/13/23 05:37 11:07 16:07 POC Glucose 147 H 140 H 130 H 05/13/23 05/14/23 05/14/23 19:38 06:10 11:33 POC Glucose 193 H 161 H 184 H 05/14/23 05/14/23 16:03 19:47 POC Glucose 151 H 107 Imaging Radiology Impressions: ITS Impressions Ankle X-Ray 05/12/23 22:24 IMPRESSION: * No acute osseous injury at the right ankle. * There is nonspecific diffuse soft tissue edema of the visualized lower leg, ankle and foot. Medications Medications Current Medications Acetaminophen (Acetaminophen 325 Mg Tablet) 650 mg PO Q6H PRN PRN Reason: Headache/Pain Mild Scale (1-3) Last Admin: 05/14/23 03:18 Dose: 650 mg Al Hydroxide/Mg Hydroxide (Magnesium Hydrox/Alum Hydrox 30 Ml Oral.Susp) 30 ml PO Q6H PRN PRN Reason: Heartburn/Nausea Albuterol Sulfate (Albuterol Sulfate 90 Mcg 8 Gm Inhaler) 1 puff INHALE QID PRN PRN Reason: wheezing Aspirin (Aspirin 81 Mg Tab.Chew) 81 mg PO DAILY [facility] Last Admin: 05/14/23 08:25 Dose: 81 mg Atorvastatin Calcium (Atorvastatin Calcium 40 Mg Tablet) 40 mg PO BEDTIME [facility] Last Admin: 05/13/23 21:34 Dose: 40 mg Clonazepam (Clonazepam 0.5 Mg Tablet) 0.5 mg PO BID [facility] Last Admin: 05/14/23 08:25 Dose: Not Given Folic Acid (Folic Acid 1 Mg Tablet) 1 mg PO DAILY [facility] Last Admin: 05/14/23 08:25 Dose: 1 mg Gabapentin (Gabapentin 400 Mg Capsule) 400 mg PO TID [facility] Last Admin: 05/14/23 16:10 Dose: 400 mg Hydrochlorothiazide (Hydrochlorothiazide 12.5 Mg Tablet) 12.5 mg PO DAILY [facility]; Protocol Last Admin: 05/14/23 08:25 Dose: 12.5 mg Hydroxyzine HCl (Hydroxyzine Hcl 25 Mg Tablet) 25 mg PO Q6H PRN PRN Reason: Anxiety Last Admin: 05/13/23 23:38 Dose: 25 mg Insulin Glargine (Insulin Glargine,Hum.Rec.Anlog 100 Unit/Ml 10 Ml Vial) 15 unit SUBCUT DAILY [facility] Last Admin: 05/14/23 07:40 Dose: 15 unit Insulin Human Lispro (Insulin Lispro 100 Unit/Ml 3 Ml Vial) 0 unit SUBCUT QIDACHS [facility]; Protocol Last Admin: 05/14/23 16:40 Dose: 2 unit Insulin Human Lispro (Insulin Lispro 100 Unit/Ml 3 Ml Vial) 5 unit SUBCUT QIDACHS [facility] Last Admin: 05/14/23 16:40 Dose: 5 unit Lisinopril (Lisinopril 10 Mg Tablet) 10 mg PO DAILY [facility]; Protocol Last Admin: 05/14/23 08:25 Dose: 10 mg Magnesium Hydroxide (Milk Of Magnesia 30 Ml Oral.Susp) 30 ml PO DAILY PRN PRN Reason: Constipation Melatonin (Melatonin 3 Mg Tablet) 6 mg PO BEDTIME PRN PRN Reason: Insomnia Last Admin: 05/13/23 21:34 Dose: 6 mg Metoprolol Tartrate (Metoprolol Tartrate 25 Mg Tablet) 25 mg PO DAILY [facility]; Protocol Last Admin: 05/14/23 08:25 Dose: 25 mg Omeprazole (Omeprazole 40 Mg Capsule.Dr) 40 mg PO DAILY@0630 [facility] Last Admin: 05/14/23 05:32 Dose: 40 mg Risperidone (Risperidone 1 Mg Tablet) 1 mg PO BID [facility] Last Admin: 05/14/23 08:25 Dose: 1 mg Thiamine HCl (Thiamine Hcl 100 Mg Tablet) 100 mg PO DAILY [facility] Last Admin: 05/14/23 08:25 Dose: 100 mg Trazodone HCl (Trazodone Hcl 50 Mg Tablet) 50 mg PO BEDTIME PRN PRN Reason: Insomnia Last Admin: 05/13/23 23:38 Dose: 50 mg Allergies Allergies Allergy/AdvReac Type Severity Reaction Status Date / Time bee pollen Allergy Anaphylaxis Verified 05/08/23 12:11 Assessment & Plan Assessment & Plan (1) Suicidal ideation: Status: Acute Code(s): R45.851 - Suicidal ideations (2) Mood disorder: Status: Acute Code(s): F39 - Unspecified mood [affective] disorder (3) Alcohol use disorder: Status: Acute Code(s): F10.90 - Alcohol use, unspecified, uncomplicated (4) Cocaine use disorder: Status: Acute Code(s): F14.10 - Cocaine abuse, uncomplicated Plan The patient is a middle-aged [place] descent female, , with a past history of prior admissions into the hospital for psychosis, disorganization alcohol and cocaine abuse, chronically homeless with unstable housing, removed from a hotel since she was disorganized. She tested positive to cocaine in the unit. She signed a 3 day notice. Plan 1. Gather collateral information. 2. Continue with regular medications. 3. At this moment on 50 minutes checks since the patient is able to contract for safety. 4. Continue with medical workout. Hospitalist consult ordered on May 10 for edema 05/13/23 Patient denies SI limited insight discussed use of Alfredo stockings 05/14/2023 Patient generally stable continue plan of care probable discharge future oriented denies cocaine use Reason for continued inpatient stay Substantial Risk for: inability to function and rapid decompensation Time Spent With Patient Time: Total time managing care of this patient today ____ minutes.
--- NOTE | 2023-05-14 20:25 | P.PNPSI_ITS ---
Subjective Subjective Reason For Visit: SI Diagnostics Vital Signs (24Hr): Vital Signs - 24 hr 05/14/23 08:22 Temperature 97.7 F Pulse Rate 105 H Respiratory Rate 105 H Blood Pressure 118/76 Pulse Oximetry 98 Oxygen Delivery Method Room Air BMI result Body Mass Index 34.0 Labs 05/08/23 12:26 05/17/23 07:16 Labs: Laboratory Results - last 48 hr 05/13/23 05/13/23 05/13/23 05:37 11:07 16:07 POC Glucose 147 H 140 H 130 H 05/13/23 05/14/23 05/14/23 19:38 06:10 11:33 POC Glucose 193 H 161 H 184 H 05/14/23 05/14/23 16:03 19:47 POC Glucose 151 H 107 Imaging Radiology Impressions: ITS Impressions Ankle X-Ray 05/12/23 22:24 IMPRESSION: * No acute osseous injury at the right ankle. * There is nonspecific diffuse soft tissue edema of the visualized lower leg, ankle and foot. Medications Medications Current Medications Acetaminophen (Acetaminophen 325 Mg Tablet) 650 mg PO Q6H PRN PRN Reason: Headache/Pain Mild Scale (1-3) Last Admin: 05/14/23 03:18 Dose: 650 mg Al Hydroxide/Mg Hydroxide (Magnesium Hydrox/Alum Hydrox 30 Ml Oral.Susp) 30 ml PO Q6H PRN PRN Reason: Heartburn/Nausea Albuterol Sulfate (Albuterol Sulfate 90 Mcg 8 Gm Inhaler) 1 puff INHALE QID PRN PRN Reason: wheezing Aspirin (Aspirin 81 Mg Tab.Chew) 81 mg PO DAILY [facility] Last Admin: 05/14/23 08:25 Dose: 81 mg Atorvastatin Calcium (Atorvastatin Calcium 40 Mg Tablet) 40 mg PO BEDTIME [facility] Last Admin: 05/13/23 21:34 Dose: 40 mg Clonazepam (Clonazepam 0.5 Mg Tablet) 0.5 mg PO BID [facility] Last Admin: 05/14/23 08:25 Dose: Not Given Folic Acid (Folic Acid 1 Mg Tablet) 1 mg PO DAILY [facility] Last Admin: 05/14/23 08:25 Dose: 1 mg Gabapentin (Gabapentin 400 Mg Capsule) 400 mg PO TID [facility] Last Admin: 05/14/23 16:10 Dose: 400 mg Hydrochlorothiazide (Hydrochlorothiazide 12.5 Mg Tablet) 12.5 mg PO DAILY [facility]; Protocol Last Admin: 05/14/23 08:25 Dose: 12.5 mg Hydroxyzine HCl (Hydroxyzine Hcl 25 Mg Tablet) 25 mg PO Q6H PRN PRN Reason: Anxiety Last Admin: 05/13/23 23:38 Dose: 25 mg Insulin Glargine (Insulin Glargine,Hum.Rec.Anlog 100 Unit/Ml 10 Ml Vial) 15 unit SUBCUT DAILY [facility] Last Admin: 05/14/23 07:40 Dose: 15 unit Insulin Human Lispro (Insulin Lispro 100 Unit/Ml 3 Ml Vial) 0 unit SUBCUT QIDACHS [facility]; Protocol Last Admin: 05/14/23 16:40 Dose: 2 unit Insulin Human Lispro (Insulin Lispro 100 Unit/Ml 3 Ml Vial) 5 unit SUBCUT QIDACHS [facility] Last Admin: 05/14/23 16:40 Dose: 5 unit Lisinopril (Lisinopril 10 Mg Tablet) 10 mg PO DAILY [facility]; Protocol Last Admin: 05/14/23 08:25 Dose: 10 mg Magnesium Hydroxide (Milk Of Magnesia 30 Ml Oral.Susp) 30 ml PO DAILY PRN PRN Reason: Constipation Melatonin (Melatonin 3 Mg Tablet) 6 mg PO BEDTIME PRN PRN Reason: Insomnia Last Admin: 05/13/23 21:34 Dose: 6 mg Metoprolol Tartrate (Metoprolol Tartrate 25 Mg Tablet) 25 mg PO DAILY [facility]; Protocol Last Admin: 05/14/23 08:25 Dose: 25 mg Omeprazole (Omeprazole 40 Mg Capsule.Dr) 40 mg PO DAILY@0630 [facility] Last Admin: 05/14/23 05:32 Dose: 40 mg Risperidone (Risperidone 1 Mg Tablet) 1 mg PO BID [facility] Last Admin: 05/14/23 08:25 Dose: 1 mg Thiamine HCl (Thiamine Hcl 100 Mg Tablet) 100 mg PO DAILY [facility] Last Admin: 05/14/23 08:25 Dose: 100 mg Trazodone HCl (Trazodone Hcl 50 Mg Tablet) 50 mg PO BEDTIME PRN PRN Reason: Insomnia Last Admin: 05/13/23 23:38 Dose: 50 mg Allergies Allergies Allergy/AdvReac Type Severity Reaction Status Date / Time bee pollen Allergy Anaphylaxis Verified 05/08/23 12:11 Assessment & Plan Assessment & Plan (1) Suicidal ideation: Status: Acute Code(s): R45.851 - Suicidal ideations (2) Mood disorder: Status: Acute Code(s): F39 - Unspecified mood [affective] disorder (3) Alcohol use disorder: Status: Acute Code(s): F10.90 - Alcohol use, unspecified, uncomplicated (4) Cocaine use disorder: Status: Acute Code(s): F14.10 - Cocaine abuse, uncomplicated Plan The patient is a middle-aged [place] descent female, , with a past history of prior admissions into the hospital for psychosis, disorganization alcohol and cocaine abuse, chronically homeless with unstable housing, removed from a hotel since she was disorganized. She tested positive to cocaine in the unit. She signed a 3 day notice. Plan 1. Gather collateral information. 2. Continue with regular medications. 3. At this moment on 50 minutes checks since the patient is able to contract for safety. 4. Continue with medical workout. Hospitalist consult ordered on May 10 for edema 05/13/23 Patient denies SI limited insight discussed use of Alfredo stockings 05/14/2023 Patient generally stable continue plan of care probable discharge future oriented denies cocaine use Reason for continued inpatient stay Substantial Risk for: inability to function and rapid decompensation Time Spent With Patient Time: Total time managing care of this patient today ____ minutes.
[2023-05-14] MEDS: Atorvastatin Calcium 40 MG TABLET PO (20:27)
[2023-05-14] MEDS: clonazePAM 0.5 MG TABLET PO (21:28)
[2023-05-14] MEDS: Melatonin 3 MG TABLET 6 MG PO (21:28)
[2023-05-15] MEDS: Acetaminophen 325 MG TABLET 650 MG PO ×2 (05:00→14:43)
[2023-05-15] MEDS: Omeprazole 40 MG CAPSULE.DR PO (05:01)
[2023-05-15 05:47] LABS: Glucose, Whole Blood 138 mg/dL (60-115)
[2023-05-15 08:05] VITALS: BP 119/82; PULSE 102; RESP 14; TEMP 36.3; O2SAT 99
[2023-05-15] MEDS: Aspirin 81 MG TAB.CHEW PO (08:14)
[2023-05-15] MEDS: lisinopriL 10 MG TABLET PO (08:14)
[2023-05-15] MEDS: hydroCHLOROthiazide 12.5 MG TABLET PO (08:14)
[2023-05-15] MEDS: Gabapentin 400 MG CAPSULE PO ×3 (08:15→20:15)
[2023-05-15] MEDS: Metoprolol Tartrate 25 MG TABLET PO (08:15)
[2023-05-15] MEDS: Thiamine HCL 100 MG TABLET PO (08:15)
[2023-05-15] MEDS: Folic Acid 1 MG TABLET PO (08:15)
[2023-05-15] MEDS: risperiDONE 1 MG TABLET PO ×2 (08:15→20:15)
[2023-05-15] MEDS: Insulin Lispro 100 UNIT/ML 3 ML VIAL SUBCUT ×5 (08:21→20:15)
[2023-05-15] MEDS: Insulin Glargine,Hum.rec.anlog 100 UNIT/ML 10 ML VIAL 15 UNIT SUBCUT (08:21)
[2023-05-15 11:31] LABS: Glucose, Whole Blood 138 mg/dL (60-115)
--- NOTE | 2023-05-15 12:54 | P.PNPSI_ITS ---
Subjective Subjective Date of Service: 05/15/23 Reason For Visit: SI Subjective Notes: Conditional Voluntary and 3 Day Interim History: The nursing staff reported the patient had been compliant with treatment, pleasant on approach. She recanted his 3 day notice and signed a new 1. On interview the patient denies new symptoms, waiting for discharge planning Mental Status Exam Mental Status Exam Patient Appearance: Well Grooomed and Appropriate Patient Orientation: Person and Situation Level of Consciousness: Awake Patient Behavior: Guarded Mood Description: Withdrawn Affect Description: Constricted Patient Cognition Impaired: Yes Ability to Follow Directions: Fair Speech Pattern: Clear Hallucinations: None Delusions: Not Present Thought Process: Distracted and Slowed Thinking Thought Content: positive for [place] and positive for Poverty of Content Judgement: Poor Diagnostics Vital Signs (24Hr): Vital Signs - 24 hr 05/14/23 19:30 05/15/23 08:05 Temperature 97.2 F 97.3 F Pulse Rate 106 H 102 H Respiratory Rate 16 14 Blood Pressure 131/65 119/82 Pulse Oximetry 100 99 Oxygen Delivery Method Room Air Room Air BMI result Body Mass Index 34.0 Labs 05/08/23 12:26 05/10/23 08:10 Labs: Laboratory Results - last 48 hr 05/13/23 05/13/23 05/14/23 16:07 19:38 06:10 POC Glucose 130 H 193 H 161 H 05/14/23 05/14/23 05/14/23 11:33 16:03 19:47 POC Glucose 184 H 151 H 107 05/15/23 05/15/23 05:44 11:28 POC Glucose 138 H 138 H Imaging Radiology Impressions: ITS Impressions Ankle X-Ray 05/12/23 22:24 IMPRESSION: * No acute osseous injury at the right ankle. * There is nonspecific diffuse soft tissue edema of the visualized lower leg, ankle and foot. Medications Medications Current Medications Acetaminophen (Acetaminophen 325 Mg Tablet) 650 mg PO Q6H PRN PRN Reason: Headache/Pain Mild Scale (1-3) Last Admin: 05/15/23 05:00 Dose: 650 mg Al Hydroxide/Mg Hydroxide (Magnesium Hydrox/Alum Hydrox 30 Ml Oral.Susp) 30 ml PO Q6H PRN PRN Reason: Heartburn/Nausea Albuterol Sulfate (Albuterol Sulfate 90 Mcg 8 Gm Inhaler) 1 puff INHALE QID PRN PRN Reason: wheezing Aspirin (Aspirin 81 Mg Tab.Chew) 81 mg PO DAILY [facility] Last Admin: 05/15/23 08:14 Dose: 81 mg Atorvastatin Calcium (Atorvastatin Calcium 40 Mg Tablet) 40 mg PO BEDTIME [facility] Last Admin: 05/14/23 20:27 Dose: 40 mg Clonazepam (Clonazepam 0.5 Mg Tablet) 0.5 mg PO BID [facility] Last Admin: 05/15/23 08:20 Dose: Not Given Folic Acid (Folic Acid 1 Mg Tablet) 1 mg PO DAILY [facility] Last Admin: 05/15/23 08:15 Dose: 1 mg Gabapentin (Gabapentin 400 Mg Capsule) 400 mg PO TID [facility] Last Admin: 05/15/23 08:15 Dose: 400 mg Hydrochlorothiazide (Hydrochlorothiazide 12.5 Mg Tablet) 12.5 mg PO DAILY [facility]; Protocol Last Admin: 05/15/23 08:14 Dose: 12.5 mg Hydroxyzine HCl (Hydroxyzine Hcl 25 Mg Tablet) 25 mg PO Q6H PRN PRN Reason: Anxiety Last Admin: 05/13/23 23:38 Dose: 25 mg Insulin Glargine (Insulin Glargine,Hum.Rec.Anlog 100 Unit/Ml 10 Ml Vial) 15 unit SUBCUT DAILY [facility] Last Admin: 05/15/23 08:21 Dose: 15 unit Insulin Human Lispro (Insulin Lispro 100 Unit/Ml 3 Ml Vial) 0 unit SUBCUT QIDACHS [facility]; Protocol Last Admin: 05/15/23 11:30 Dose: Not Given Insulin Human Lispro (Insulin Lispro 100 Unit/Ml 3 Ml Vial) 5 unit SUBCUT QIDACHS [facility] Last Admin: 05/15/23 11:42 Dose: 5 unit Lisinopril (Lisinopril 10 Mg Tablet) 10 mg PO DAILY [facility]; Protocol Last Admin: 05/15/23 08:14 Dose: 10 mg Magnesium Hydroxide (Milk Of Magnesia 30 Ml Oral.Susp) 30 ml PO DAILY PRN PRN Reason: Constipation Melatonin (Melatonin 3 Mg Tablet) 6 mg PO BEDTIME PRN PRN Reason: Insomnia Last Admin: 05/14/23 21:28 Dose: 6 mg Metoprolol Tartrate (Metoprolol Tartrate 25 Mg Tablet) 25 mg PO DAILY [facility]; Protocol Last Admin: 05/15/23 08:15 Dose: 25 mg Nicotine Polacrilex (Nicotine Polacrilex 2 Mg Gum) 2 mg BUCCAL Q2H PRN PRN Reason: Nicotine Cravings Omeprazole (Omeprazole 40 Mg Capsule.Dr) 40 mg PO DAILY@0630 [facility] Last Admin: 05/15/23 05:01 Dose: 40 mg Risperidone (Risperidone 1 Mg Tablet) 1 mg PO BID [facility] Last Admin: 05/15/23 08:15 Dose: 1 mg Thiamine HCl (Thiamine Hcl 100 Mg Tablet) 100 mg PO DAILY [facility] Last Admin: 05/15/23 08:15 Dose: 100 mg Trazodone HCl (Trazodone Hcl 50 Mg Tablet) 50 mg PO BEDTIME PRN PRN Reason: Insomnia Last Admin: 05/13/23 23:38 Dose: 50 mg Allergies Allergies Allergy/AdvReac Type Severity Reaction Status Date / Time bee pollen Allergy Anaphylaxis Verified 05/08/23 12:11 Assessment & Plan Assessment & Plan (1) Suicidal ideation: Status: Acute Code(s): R45.851 - Suicidal ideations (2) Mood disorder: Status: Acute Code(s): F39 - Unspecified mood [affective] disorder (3) Alcohol use disorder: Status: Acute Code(s): F10.90 - Alcohol use, unspecified, uncomplicated (4) Cocaine use disorder: Status: Acute Code(s): F14.10 - Cocaine abuse, uncomplicated Plan The patient is a middle-aged [place] descent female, , with a past history of prior admissions into the hospital for psychosis, disorganization alcohol and cocaine abuse, chronically homeless with unstable housing, removed from a hotel since she was disorganized. She tested positive to cocaine in the unit. She signed a 3 day notice. Plan 1. Gather collateral information. 2. Continue with regular medications. 3. At this moment on 50 minutes checks since the patient is able to contract for safety. 4. Continue with medical workout. Hospitalist consult ordered on May 10 for edema 05/13/23 Patient denies SI limited insight discussed use of Alfredo stockings 05/14/2023 Patient generally stable continue plan of care probable discharge future oriented denies cocaine use Reason for continued inpatient stay Substantial Risk for: inability to function, rapid decompensation and med/psych decompensation Time Spent With Patient Time: Total time managing care of this patient today _20___ minutes.
[2023-05-15] MEDS: Nicotine Polacrilex 2 MG GUM BUCCAL ×2 (13:26→17:05)
[2023-05-15 16:20] LABS: Glucose, Whole Blood 151 mg/dL (60-115)
[2023-05-15 19:00] VITALS: BP 116/57; PULSE 106; RESP 18; TEMP 36.3; O2SAT 98
[2023-05-15 19:47] LABS: Glucose, Whole Blood 148 mg/dL (60-115)
[2023-05-15] MEDS: clonazePAM 0.5 MG TABLET PO (20:15)
[2023-05-15] MEDS: Atorvastatin Calcium 40 MG TABLET PO (20:15)
[2023-05-15] MEDS: traZODone HCL 50 MG TABLET PO (21:27)
[2023-05-16] MEDS: Acetaminophen 325 MG TABLET 650 MG PO ×3 (04:31→17:55)
[2023-05-16] MEDS: Omeprazole 40 MG CAPSULE.DR PO (06:23)
[2023-05-16] MEDS: Nicotine Polacrilex 2 MG GUM BUCCAL ×2 (06:23→17:56)
[2023-05-16 06:38] LABS: Glucose, Whole Blood 183 mg/dL (60-115)
[2023-05-16 08:00] VITALS: BP 117/55; PULSE 105; RESP 18; TEMP 36.4; O2SAT 99
[2023-05-16 08:34] LABS: Anion Gap 15 (12-20); Blood Urea Nitrogen 21 mg/dL (9-16); Calcium 9.8 mg/dL (8.4-10.2); Carbon Dioxide 25 mmol/L (22-29); Chloride 98 mmol/L (96-108); Creatinine Clr Calc Pharmacy 82.5; Estimated Glomerular Filt Rate > 60; Glucose Random 134 mg/dL (60-115); Potassium 4.6 mmol/L (3.3-5.1); Sodium 133 mmol/L (135-145)
[2023-05-16] MEDS: lisinopriL 10 MG TABLET PO (08:53)
[2023-05-16] MEDS: risperiDONE 1 MG TABLET PO ×2 (08:53→20:34)
[2023-05-16] MEDS: Metoprolol Tartrate 25 MG TABLET PO (08:54)
[2023-05-16] MEDS: hydroCHLOROthiazide 12.5 MG TABLET PO (08:54)
[2023-05-16] MEDS: Thiamine HCL 100 MG TABLET PO (08:54)
[2023-05-16] MEDS: Folic Acid 1 MG TABLET PO (08:54)
[2023-05-16] MEDS: Gabapentin 400 MG CAPSULE PO ×3 (08:54→20:34)
[2023-05-16] MEDS: Aspirin 81 MG TAB.CHEW PO (08:54)
[2023-05-16] MEDS: Insulin Glargine,Hum.rec.anlog 100 UNIT/ML 10 ML VIAL 15 UNIT SUBCUT (08:59)
[2023-05-16] MEDS: Insulin Lispro 100 UNIT/ML 3 ML VIAL SUBCUT ×6 (09:06→20:34)
[2023-05-16 11:39] LABS: Glucose, Whole Blood 169 mg/dL (60-115)
[2023-05-16 16:09] LABS: Glucose, Whole Blood 163 mg/dL (60-115)
--- NOTE | 2023-05-16 16:23 | HO.PSYCHPN ---
Subjective Subjective Date of Service: 05/16/23 Reason For Visit: SI Subjective Notes: Conditional Voluntary and 3 Day Interim History: Pt sleeping through the night. No overt psychosis or delusional content noted or reported. She has limited insight into concerns that family has about her behaviors and events leading to admissions. She has been visible, social with peers. Review of Systems Constitutional: Reports no additional constitutional complaints, Denies chills, Denies fever(s) and Denies night sweats Eyes: Reports no additional eye complaints, Denies blurry vision, Denies change in vision, Denies diplopia, Denies eye discharge, Denies loss of vision and Denies eye pain Denies dizziness Cardiovascular: Reports no additional cardiovascular complaints, Denies chest pain, Denies lightheadedness, Denies Loss of Consciousness and Denies dyspnea Respiratory: Reports no additional respiratory complaints and Denies dyspnea Gastrointestinal: Reports no additional gastrointestinal complaints, Denies abdominal pain, Denies melena, Denies hematochezia, Denies change in bowel habits and Denies change in stool character Musculoskeletal: Reports no additional musculoskeletal complaints, Denies numbness and Denies tingling Denies dizziness, Denies loss of vision, Denies numbness and Denies tingling Psychiatric: Reports homicidal ideation and Reports suicidal ideation Endocrine: Reports no additional endocrine complaints Hematologic/Lymphatic: Reports no additional hematologic/lymphatic complaints Allergic/Immunologic: Reports no additional allergic/immunologic complaints Mental Status Exam Mental Status Exam Patient Appearance: Well Grooomed and Appropriate Patient Orientation: Person and Situation Level of Consciousness: Awake Patient Behavior: Guarded Mood Description: Withdrawn Affect Description: Constricted Patient Cognition Impaired: Yes Ability to Follow Directions: Fair Speech Pattern: Clear Diagnostics Vital Signs (24Hr): Vital Signs - 24 hr 05/15/23 19:00 05/16/23 08:00 Temperature 97.4 F 97.5 F Pulse Rate 106 H 105 H Respiratory Rate 18 18 Blood Pressure 116/57 L 117/55 L Pulse Oximetry 98 99 Oxygen Delivery Method Room Air Room Air BMI result Body Mass Index 34.0 Labs 05/08/23 12:26 05/17/23 07:16 Labs: Laboratory Results - last 48 hr 05/14/23 05/15/23 05/15/23 19:47 05:44 11:28 Sodium Potassium Chloride Carbon Dioxide Anion Gap BUN Creatinine Estim Creat Clear Calc Estimated GFR POC Glucose 107 138 H 138 H Random Glucose Calcium 05/15/23 05/15/23 05/16/23 16:08 19:40 06:11 Sodium Potassium Chloride Carbon Dioxide Anion Gap BUN Creatinine Estim Creat Clear Calc Estimated GFR POC Glucose 151 H 148 H 183 H Random Glucose Calcium 05/16/23 05/16/23 05/16/23 08:13 11:35 16:04 Sodium 133 L Potassium 4.6 Chloride 98 Carbon Dioxide 25 Anion Gap 15 BUN 21 H Creatinine 0.70 Estim Creat Clear Calc 82.5 Estimated GFR > 60 POC Glucose 169 H 163 H Random Glucose 134 H Calcium 9.8 Imaging Radiology Impressions: ITS Impressions Ankle X-Ray 05/12/23 22:24 IMPRESSION: * No acute osseous injury at the right ankle. * There is nonspecific diffuse soft tissue edema of the visualized lower leg, ankle and foot. Medications Medications Current Medications Acetaminophen (Acetaminophen 325 Mg Tablet) 650 mg PO Q6H PRN PRN Reason: Headache/Pain Mild Scale (1-3) Last Admin: 05/16/23 11:20 Dose: 650 mg Al Hydroxide/Mg Hydroxide (Magnesium Hydrox/Alum Hydrox 30 Ml Oral.Susp) 30 ml PO Q6H PRN PRN Reason: Heartburn/Nausea Albuterol Sulfate (Albuterol Sulfate 90 Mcg 8 Gm Inhaler) 1 puff INHALE QID PRN PRN Reason: wheezing Aspirin (Aspirin 81 Mg Tab.Chew) 81 mg PO DAILY [facility] Last Admin: 05/16/23 08:54 Dose: 81 mg Atorvastatin Calcium (Atorvastatin Calcium 40 Mg Tablet) 40 mg PO BEDTIME [facility] Last Admin: 05/15/23 20:15 Dose: 40 mg Clonazepam (Clonazepam 0.5 Mg Tablet) 0.5 mg PO BID [facility] Last Admin: 05/16/23 09:44 Dose: Not Given Folic Acid (Folic Acid 1 Mg Tablet) 1 mg PO DAILY [facility] Last Admin: 05/16/23 08:54 Dose: 1 mg Gabapentin (Gabapentin 400 Mg Capsule) 400 mg PO TID [facility] Last Admin: 05/16/23 14:44 Dose: 400 mg Hydrochlorothiazide (Hydrochlorothiazide 12.5 Mg Tablet) 12.5 mg PO DAILY [facility]; Protocol Last Admin: 05/16/23 08:54 Dose: 12.5 mg Hydroxyzine HCl (Hydroxyzine Hcl 25 Mg Tablet) 25 mg PO Q6H PRN PRN Reason: Anxiety Last Admin: 05/13/23 23:38 Dose: 25 mg Insulin Glargine (Insulin Glargine,Hum.Rec.Anlog 100 Unit/Ml 10 Ml Vial) 15 unit SUBCUT DAILY [facility] Last Admin: 05/16/23 08:59 Dose: 15 unit Insulin Human Lispro (Insulin Lispro 100 Unit/Ml 3 Ml Vial) 0 unit SUBCUT QIDACHS [facility]; Protocol Last Admin: 05/16/23 11:56 Dose: 2 unit Insulin Human Lispro (Insulin Lispro 100 Unit/Ml 3 Ml Vial) 5 unit SUBCUT QIDACHS [facility] Last Admin: 05/16/23 11:55 Dose: 5 unit Lisinopril (Lisinopril 10 Mg Tablet) 10 mg PO DAILY [facility]; Protocol Last Admin: 05/16/23 08:53 Dose: 10 mg Magnesium Hydroxide (Milk Of Magnesia 30 Ml Oral.Susp) 30 ml PO DAILY PRN PRN Reason: Constipation Melatonin (Melatonin 3 Mg Tablet) 6 mg PO BEDTIME PRN PRN Reason: Insomnia Last Admin: 05/14/23 21:28 Dose: 6 mg Metoprolol Tartrate (Metoprolol Tartrate 25 Mg Tablet) 25 mg PO DAILY [facility]; Protocol Last Admin: 05/16/23 08:54 Dose: 25 mg Nicotine Polacrilex (Nicotine Polacrilex 2 Mg Gum) 2 mg BUCCAL Q2H PRN PRN Reason: Nicotine Cravings Last Admin: 05/16/23 06:23 Dose: 2 mg Omeprazole (Omeprazole 40 Mg Capsule.Dr) 40 mg PO DAILY@0630 [facility] Last Admin: 05/16/23 06:23 Dose: 40 mg Risperidone (Risperidone 1 Mg Tablet) 1 mg PO BID [facility] Last Admin: 05/16/23 08:53 Dose: 1 mg Thiamine HCl (Thiamine Hcl 100 Mg Tablet) 100 mg PO DAILY [facility] Last Admin: 05/16/23 08:54 Dose: 100 mg Trazodone HCl (Trazodone Hcl 50 Mg Tablet) 50 mg PO BEDTIME PRN PRN Reason: Insomnia Last Admin: 05/15/23 21:27 Dose: 50 mg Allergies Allergies Allergy/AdvReac Type Severity Reaction Status Date / Time bee pollen Allergy Anaphylaxis Verified 05/08/23 12:11 Assessment & Plan Assessment & Plan (1) Suicidal ideation: Status: Acute Code(s): R45.851 - Suicidal ideations (2) Mood disorder: Status: Acute Code(s): F39 - Unspecified mood [affective] disorder (3) Alcohol use disorder: Status: Acute Code(s): F10.90 - Alcohol use, unspecified, uncomplicated (4) Cocaine use disorder: Status: Acute Code(s): F14.10 - Cocaine abuse, uncomplicated Plan The patient is a middle-aged [place] descent female, , with a past history of prior admissions into the hospital for psychosis, disorganization alcohol and cocaine abuse, chronically homeless with unstable housing, removed from a hotel since she was disorganized. She tested positive to cocaine in the unit. She signed a 3 day notice. Plan 1. Gather collateral information. 2. Continue with regular medications. 3. At this moment on 50 minutes checks since the patient is able to contract for safety. 4. Continue with medical workout. Hospitalist consult ordered on May 10 for edema 05/13/23 Patient denies SI limited insight discussed use of Alfredo stockings 05/14/2023 Patient generally stable continue plan of care probable discharge future oriented denies cocaine use 05/14 continue tx. Reason for continued inpatient stay Substantial Risk for: inability to function Time Spent With Patient Time: Total time managing care of this patient today ____ minutes.
[2023-05-16 19:48] VITALS: BP 114/65; PULSE 106; RESP 18; TEMP 36.5; O2SAT 100
[2023-05-16 20:12] LABS: Glucose, Whole Blood 145 mg/dL (60-115)
[2023-05-16] MEDS: Atorvastatin Calcium 40 MG TABLET PO (20:34)
[2023-05-16] MEDS: clonazePAM 0.5 MG TABLET PO (20:34)
[2023-05-16] MEDS: traZODone HCL 50 MG TABLET PO (20:35)
[2023-05-17] MEDS: Acetaminophen 325 MG TABLET 650 MG PO ×3 (00:39→17:02)
[2023-05-17 03:30] VITALS: BP 121/72; PULSE 110; RESP 16; O2SAT 97
[2023-05-17] MEDS: Omeprazole 40 MG CAPSULE.DR PO (06:22)
[2023-05-17] MEDS: Nicotine Polacrilex 2 MG GUM BUCCAL ×3 (06:25→17:38)
[2023-05-17 06:58] LABS: Glucose, Whole Blood 210 mg/dL (60-115)
[2023-05-17 07:42] LABS: Alanine Aminotransferase 21 U/L (0-31); Albumin Level 3.7 g/dL (3.5-5.0); Alkaline Phosphatase 89 U/L (39-117); Anion Gap 11 (12-20); Aspartate Amino Transferase 17 U/L (5-31); Bilirubin Total 0.3 mg/dL (0.0-1.0); Blood Urea Nitrogen 17 mg/dL (9-16); Calcium 9.5 mg/dL (8.4-10.2); Carbon Dioxide 26 mmol/L (22-29); Chloride 100 mmol/L (96-108); Creatinine Clr Calc Pharmacy 79.1; Estimated Glomerular Filt Rate > 60; Glucose Random 183 mg/dL (60-115); Potassium 4.4 mmol/L (3.3-5.1); Sodium 133 mmol/L (135-145)
[2023-05-17 08:00] VITALS: BP 120/68; PULSE 103; RESP 18; TEMP 36.7; O2SAT 99
[2023-05-17] MEDS: Insulin Lispro 100 UNIT/ML 3 ML VIAL SUBCUT ×7 (08:19→21:24)
[2023-05-17] MEDS: lisinopriL 10 MG TABLET PO (08:21)
[2023-05-17] MEDS: Gabapentin 400 MG CAPSULE PO ×3 (08:21→20:21)
[2023-05-17] MEDS: hydroCHLOROthiazide 12.5 MG TABLET PO (08:22)
[2023-05-17] MEDS: Thiamine HCL 100 MG TABLET PO (08:22)
[2023-05-17] MEDS: Folic Acid 1 MG TABLET PO (08:22)
[2023-05-17] MEDS: risperiDONE 1 MG TABLET PO ×2 (08:22→20:21)
[2023-05-17] MEDS: Metoprolol Tartrate 25 MG TABLET PO (08:22)
[2023-05-17] MEDS: Aspirin 81 MG TAB.CHEW PO (08:22)
[2023-05-17] MEDS: Insulin Glargine,Hum.rec.anlog 100 UNIT/ML 10 ML VIAL 15 UNIT SUBCUT (08:25)
[2023-05-17 11:33] LABS: Glucose, Whole Blood 233 mg/dL (60-115)
[2023-05-17] MEDS: guaiFENesin 100 MG/5 ML LIQUID 10 ML PO (11:41)
--- NOTE | 2023-05-17 14:34 | P.PNPSI_ITS ---
Subjective Subjective Date of Service: 05/17/23 Reason For Visit: SI Subjective Notes: Conditional Voluntary and 3 Day Interim History: The nursing staff reported the patient has refused her Klonopin in the morning she took Tylenol p.r.n. for pain. The patient had been common cooperative. She was upset that a peer took her not book but she was easily redirectable. The certified social workers in health care reported that we are working on aftercare. The patient recanted his 3 day notice and she is willing to stay a few days more for proper discharge planning. On interview the patient denies new symptoms, willing to work on discharge planning. Mental Status Exam Mental Status Exam Patient Appearance: Appropriate Patient Orientation: Person and Situation Level of Consciousness: Awake and Appropriate Patient Behavior: Guarded and Passive Mood Description: Withdrawn Affect Description: Constricted Patient Cognition Impaired: Yes Ability to Follow Directions: Good Speech Pattern: Clear Hallucinations: None Delusions: Not Present Thought Process: Distracted Thought Content: positive for [place] and positive for Poverty of Content Judgement: Fair Diagnostics Vital Signs (24Hr): Vital Signs - 24 hr 05/16/23 19:48 05/17/23 03:30 05/17/23 08:00 Temperature 97.7 F 98.0 F Pulse Rate 106 H 110 H 103 H Respiratory Rate 18 16 18 Blood Pressure 114/65 121/72 120/68 Pulse Oximetry 100 97 99 Oxygen Delivery Method Room Air Room Air Room Air BMI result Body Mass Index 34.0 Labs 05/08/23 12:26 05/17/23 07:16 Labs: Laboratory Results - last 48 hr 05/15/23 05/15/23 05/16/23 16:08 19:40 06:11 Sodium Potassium Chloride Carbon Dioxide Anion Gap BUN Creatinine Estim Creat Clear Calc Estimated GFR POC Glucose 151 H 148 H 183 H Random Glucose Calcium Total Bilirubin AST ALT Alkaline Phosphatase Total Protein Albumin 05/16/23 05/16/23 05/16/23 08:13 11:35 16:04 Sodium 133 L Potassium 4.6 Chloride 98 Carbon Dioxide 25 Anion Gap 15 BUN 21 H Creatinine 0.70 Estim Creat Clear Calc 82.5 Estimated GFR > 60 POC Glucose 169 H 163 H Random Glucose 134 H Calcium 9.8 Total Bilirubin AST ALT Alkaline Phosphatase Total Protein Albumin 05/16/23 05/17/23 05/17/23 20:07 06:42 07:16 Sodium 133 L Potassium 4.4 Chloride 100 Carbon Dioxide 26 Anion Gap 11 L BUN 17 H Creatinine 0.73 Estim Creat Clear Calc 79.1 Estimated GFR > 60 POC Glucose 145 H 210 H Random Glucose 183 H Calcium 9.5 Total Bilirubin 0.3 AST 17 ALT 21 Alkaline Phosphatase 89 Total Protein 7.0 Albumin 3.7 05/17/23 11:29 Sodium Potassium Chloride Carbon Dioxide Anion Gap BUN Creatinine Estim Creat Clear Calc Estimated GFR POC Glucose 233 H Random Glucose Calcium Total Bilirubin AST ALT Alkaline Phosphatase Total Protein Albumin Imaging Radiology Impressions: ITS Impressions Ankle X-Ray 05/12/23 22:24 IMPRESSION: * No acute osseous injury at the right ankle. * There is nonspecific diffuse soft tissue edema of the visualized lower leg, ankle and foot. Medications Medications Current Medications Acetaminophen (Acetaminophen 325 Mg Tablet) 650 mg PO Q6H PRN PRN Reason: Headache/Pain Mild Scale (1-3) Last Admin: 05/17/23 08:45 Dose: 650 mg Al Hydroxide/Mg Hydroxide (Magnesium Hydrox/Alum Hydrox 30 Ml Oral.Susp) 30 ml PO Q6H PRN PRN Reason: Heartburn/Nausea Albuterol Sulfate (Albuterol Sulfate 90 Mcg 8 Gm Inhaler) 1 puff INHALE QID PRN PRN Reason: wheezing Aspirin (Aspirin 81 Mg Tab.Chew) 81 mg PO DAILY [facility] Last Admin: 05/17/23 08:22 Dose: 81 mg Atorvastatin Calcium (Atorvastatin Calcium 40 Mg Tablet) 40 mg PO BEDTIME [facility] Last Admin: 05/16/23 20:34 Dose: 40 mg Clonazepam (Clonazepam 0.5 Mg Tablet) 0.5 mg PO BID [facility] Last Admin: 05/17/23 08:56 Dose: Not Given Folic Acid (Folic Acid 1 Mg Tablet) 1 mg PO DAILY [facility] Last Admin: 05/17/23 08:22 Dose: 1 mg Gabapentin (Gabapentin 400 Mg Capsule) 400 mg PO TID [facility] Last Admin: 05/17/23 08:21 Dose: 400 mg Guaifenesin (Guaifenesin 100 Mg/5 Ml Liquid) 10 ml PO Q4H PRN PRN Reason: Cough Last Admin: 05/17/23 11:41 Dose: 10 ml Hydrochlorothiazide (Hydrochlorothiazide 12.5 Mg Tablet) 12.5 mg PO DAILY [facility]; Protocol Last Admin: 05/17/23 08:22 Dose: 12.5 mg Hydroxyzine HCl (Hydroxyzine Hcl 25 Mg Tablet) 25 mg PO Q6H PRN PRN Reason: Anxiety Last Admin: 05/13/23 23:38 Dose: 25 mg Insulin Glargine (Insulin Glargine,Hum.Rec.Anlog 100 Unit/Ml 10 Ml Vial) 15 unit SUBCUT DAILY [facility] Last Admin: 05/17/23 08:25 Dose: 15 unit Insulin Human Lispro (Insulin Lispro 100 Unit/Ml 3 Ml Vial) 0 unit SUBCUT QIDACHS [facility]; Protocol Last Admin: 05/17/23 11:36 Dose: 4 unit Insulin Human Lispro (Insulin Lispro 100 Unit/Ml 3 Ml Vial) 5 unit SUBCUT QIDACHS [facility] Last Admin: 05/17/23 11:36 Dose: 5 unit Lisinopril (Lisinopril 10 Mg Tablet) 10 mg PO DAILY [facility]; Protocol Last Admin: 05/17/23 08:21 Dose: 10 mg Magnesium Hydroxide (Milk Of Magnesia 30 Ml Oral.Susp) 30 ml PO DAILY PRN PRN Reason: Constipation Melatonin (Melatonin 3 Mg Tablet) 6 mg PO BEDTIME PRN PRN Reason: Insomnia Last Admin: 05/14/23 21:28 Dose: 6 mg Metoprolol Tartrate (Metoprolol Tartrate 25 Mg Tablet) 25 mg PO DAILY [facility]; Protocol Last Admin: 05/17/23 08:22 Dose: 25 mg Nicotine Polacrilex (Nicotine Polacrilex 2 Mg Gum) 2 mg BUCCAL Q2H PRN PRN Reason: Nicotine Cravings Last Admin: 05/17/23 11:35 Dose: 2 mg Omeprazole (Omeprazole 40 Mg Capsule.Dr) 40 mg PO DAILY@0630 [facility] Last Admin: 05/17/23 06:22 Dose: 40 mg Risperidone (Risperidone 1 Mg Tablet) 1 mg PO BID [facility] Last Admin: 05/17/23 08:22 Dose: 1 mg Thiamine HCl (Thiamine Hcl 100 Mg Tablet) 100 mg PO DAILY [facility] Last Admin: 05/17/23 08:22 Dose: 100 mg Trazodone HCl (Trazodone Hcl 50 Mg Tablet) 50 mg PO BEDTIME PRN PRN Reason: Insomnia Last Admin: 05/16/23 20:35 Dose: 50 mg Allergies Allergies Allergy/AdvReac Type Severity Reaction Status Date / Time bee pollen Allergy Anaphylaxis Verified 05/08/23 12:11 Assessment & Plan Assessment & Plan (1) Suicidal ideation: Status: Acute Code(s): R45.851 - Suicidal ideations (2) Mood disorder: Status: Acute Code(s): F39 - Unspecified mood [affective] disorder (3) Alcohol use disorder: Status: Acute Code(s): F10.90 - Alcohol use, unspecified, uncomplicated (4) Cocaine use disorder: Status: Acute Code(s): F14.10 - Cocaine abuse, uncomplicated Plan The patient is a middle-aged [place] descent female, , with a past history of prior admissions into the hospital for psychosis, disorganization alcohol and cocaine abuse, chronically homeless with unstable housing, removed from a hotel since she was disorganized. She tested positive to cocaine in the unit. She signed a 3 day notice. Plan 1. Gather collateral information. 2. Continue with regular medications. 3. At this moment on 50 minutes checks since the patient is able to contract for safety. 4. Continue with medical workout. Hospitalist consult ordered on May 10 for edema 5. Start working on discharge planning. Reason for continued inpatient stay Substantial Risk for: inability to function, rapid decompensation and med/psych decompensation Time Spent With Patient Time: Total time managing care of this patient today _20___ minutes.
[2023-05-17 16:11] LABS: Glucose, Whole Blood 109 mg/dL (60-115)
[2023-05-17] MEDS: Albuterol Sulfate 90 MCG 8 GM INHALER 1 PUFF INHALE (17:39)
[2023-05-17 18:00] VITALS: BP 112/67; PULSE 72; RESP 18; TEMP 36.8; O2SAT 99
[2023-05-17] MEDS: Atorvastatin Calcium 40 MG TABLET PO (20:21)
[2023-05-17 20:48] LABS: Glucose, Whole Blood 218 mg/dL (60-115)
[2023-05-17] MEDS: clonazePAM 0.5 MG TABLET PO (21:21)
[2023-05-17] MEDS: Melatonin 3 MG TABLET 6 MG PO (21:22)
[2023-05-17] MEDS: traZODone HCL 50 MG TABLET PO (21:22)
[2023-05-18] MEDS: Acetaminophen 325 MG TABLET 650 MG PO ×3 (04:35→20:29)
[2023-05-18] MEDS: Nicotine Polacrilex 2 MG GUM BUCCAL ×2 (04:35→16:34)
[2023-05-18] MEDS: Omeprazole 40 MG CAPSULE.DR PO (06:10)
[2023-05-18 06:25] LABS: Glucose, Whole Blood 173 mg/dL (60-115)
[2023-05-18 07:40] VITALS: BP 134/70; PULSE 99; RESP 18; TEMP 36.6; O2SAT 98
[2023-05-18] MEDS: Aspirin 81 MG TAB.CHEW PO (08:06)
[2023-05-18] MEDS: hydroCHLOROthiazide 12.5 MG TABLET PO (08:07)
[2023-05-18] MEDS: Gabapentin 400 MG CAPSULE PO ×3 (08:07→20:29)
[2023-05-18] MEDS: Metoprolol Tartrate 25 MG TABLET PO (08:07)
[2023-05-18] MEDS: risperiDONE 1 MG TABLET PO ×2 (08:07→20:29)
[2023-05-18] MEDS: lisinopriL 10 MG TABLET PO (08:07)
[2023-05-18] MEDS: Folic Acid 1 MG TABLET PO (08:07)
[2023-05-18] MEDS: Thiamine HCL 100 MG TABLET PO (08:07)
[2023-05-18] MEDS: Insulin Lispro 100 UNIT/ML 3 ML VIAL SUBCUT ×7 (08:07→20:30)
[2023-05-18] MEDS: Insulin Glargine,Hum.rec.anlog 100 UNIT/ML 10 ML VIAL 15 UNIT SUBCUT (08:09)
[2023-05-18 08:51] VITALS: BMI 35.0
[2023-05-18 11:29] LABS: Glucose, Whole Blood 206 mg/dL (60-115)
[2023-05-18 16:28] LABS: Glucose, Whole Blood 124 mg/dL (60-115)
--- NOTE | 2023-05-18 16:57 | HO.PSYCHPN ---
Subjective Subjective Date of Service: 05/18/23 Reason For Visit: SI Subjective Notes: Conditional Voluntary Interim History: The nursing staff reported the patient refused her Klonopin in the morning. She slept 7 hours. The group social worker reported that she is going to be referred to respite and most likely could be discharged next Monday. On interview the patient denies new symptoms complaining of edema but it is much less since hydrochlorothiazide was started. We will reconsult tomorrow Mental Status Exam Mental Status Exam Patient Appearance: Appropriate Patient Orientation: Person and Situation Level of Consciousness: Awake and Appropriate Patient Behavior: Guarded and Passive Mood Description: Withdrawn Affect Description: Constricted Patient Cognition Impaired: Yes Ability to Follow Directions: Good Speech Pattern: Clear Hallucinations: None Delusions: Not Present Thought Process: Distracted Thought Content: positive for [place] and positive for Poverty of Content Judgement: Fair Diagnostics Vital Signs (24Hr): Vital Signs - 24 hr 05/17/23 18:00 05/18/23 07:40 Temperature 98.2 F 97.8 F Pulse Rate 72 99 Respiratory Rate 18 18 Blood Pressure 112/67 134/70 Pulse Oximetry 99 98 Oxygen Delivery Method Room Air Room Air BMI result Body Mass Index 35.0 Labs 05/08/23 12:26 05/17/23 07:16 Labs: Laboratory Results - last 48 hr 05/16/23 05/17/23 05/17/23 20:07 06:42 07:16 Sodium 133 L Potassium 4.4 Chloride 100 Carbon Dioxide 26 Anion Gap 11 L BUN 17 H Creatinine 0.73 Estim Creat Clear Calc 79.1 Estimated GFR > 60 POC Glucose 145 H 210 H Random Glucose 183 H Calcium 9.5 Total Bilirubin 0.3 AST 17 ALT 21 Alkaline Phosphatase 89 Total Protein 7.0 Albumin 3.7 05/17/23 05/17/23 05/17/23 11:29 16:05 20:19 Sodium Potassium Chloride Carbon Dioxide Anion Gap BUN Creatinine Estim Creat Clear Calc Estimated GFR POC Glucose 233 H 109 218 H Random Glucose Calcium Total Bilirubin AST ALT Alkaline Phosphatase Total Protein Albumin 05/18/23 05/18/23 05/18/23 05:52 11:25 16:16 Sodium Potassium Chloride Carbon Dioxide Anion Gap BUN Creatinine Estim Creat Clear Calc Estimated GFR POC Glucose 173 H 206 H 124 H Random Glucose Calcium Total Bilirubin AST ALT Alkaline Phosphatase Total Protein Albumin Imaging Radiology Impressions: ITS Impressions Ankle X-Ray 05/12/23 22:24 IMPRESSION: * No acute osseous injury at the right ankle. * There is nonspecific diffuse soft tissue edema of the visualized lower leg, ankle and foot. Medications Medications Current Medications Acetaminophen (Acetaminophen 325 Mg Tablet) 650 mg PO Q6H PRN PRN Reason: Headache/Pain Mild Scale (1-3) Last Admin: 05/18/23 15:22 Dose: 650 mg Al Hydroxide/Mg Hydroxide (Magnesium Hydrox/Alum Hydrox 30 Ml Oral.Susp) 30 ml PO Q6H PRN PRN Reason: Heartburn/Nausea Albuterol Sulfate (Albuterol Sulfate 90 Mcg 8 Gm Inhaler) 1 puff INHALE QID PRN PRN Reason: wheezing Last Admin: 05/17/23 17:39 Dose: 1 puff Aspirin (Aspirin 81 Mg Tab.Chew) 81 mg PO DAILY [facility] Last Admin: 05/18/23 08:06 Dose: 81 mg Atorvastatin Calcium (Atorvastatin Calcium 40 Mg Tablet) 40 mg PO BEDTIME [facility] Last Admin: 05/17/23 20:21 Dose: 40 mg Clonazepam (Clonazepam 0.5 Mg Tablet) 0.5 mg PO BID [facility] Last Admin: 05/18/23 08:09 Dose: Not Given Folic Acid (Folic Acid 1 Mg Tablet) 1 mg PO DAILY [facility] Last Admin: 05/18/23 08:07 Dose: 1 mg Gabapentin (Gabapentin 400 Mg Capsule) 400 mg PO TID [facility] Last Admin: 05/18/23 15:19 Dose: 400 mg Guaifenesin (Guaifenesin 100 Mg/5 Ml Liquid) 10 ml PO Q4H PRN PRN Reason: Cough Last Admin: 05/17/23 11:41 Dose: 10 ml Hydrochlorothiazide (Hydrochlorothiazide 12.5 Mg Tablet) 12.5 mg PO DAILY [facility]; Protocol Last Admin: 05/18/23 08:07 Dose: 12.5 mg Hydroxyzine HCl (Hydroxyzine Hcl 25 Mg Tablet) 25 mg PO Q6H PRN PRN Reason: Anxiety Last Admin: 05/13/23 23:38 Dose: 25 mg Insulin Glargine (Insulin Glargine,Hum.Rec.Anlog 100 Unit/Ml 10 Ml Vial) 15 unit SUBCUT DAILY [facility] Last Admin: 05/18/23 08:09 Dose: 15 unit Insulin Human Lispro (Insulin Lispro 100 Unit/Ml 3 Ml Vial) 0 unit SUBCUT QIDACHS [facility]; Protocol Last Admin: 05/18/23 11:34 Dose: 4 unit Insulin Human Lispro (Insulin Lispro 100 Unit/Ml 3 Ml Vial) 5 unit SUBCUT QIDACHS [facility] Last Admin: 05/18/23 16:33 Dose: 5 unit Lisinopril (Lisinopril 10 Mg Tablet) 10 mg PO DAILY [facility]; Protocol Last Admin: 05/18/23 08:07 Dose: 10 mg Magnesium Hydroxide (Milk Of Magnesia 30 Ml Oral.Susp) 30 ml PO DAILY PRN PRN Reason: Constipation Melatonin (Melatonin 3 Mg Tablet) 6 mg PO BEDTIME PRN PRN Reason: Insomnia Last Admin: 05/17/23 21:22 Dose: 6 mg Metoprolol Tartrate (Metoprolol Tartrate 25 Mg Tablet) 25 mg PO DAILY [facility]; Protocol Last Admin: 05/18/23 08:07 Dose: 25 mg Nicotine Polacrilex (Nicotine Polacrilex 2 Mg Gum) 2 mg BUCCAL Q2H PRN PRN Reason: Nicotine Cravings Last Admin: 05/18/23 16:34 Dose: 2 mg Omeprazole (Omeprazole 40 Mg Capsule.Dr) 40 mg PO DAILY@0630 [facility] Last Admin: 05/18/23 06:10 Dose: 40 mg Risperidone (Risperidone 1 Mg Tablet) 1 mg PO BID [facility] Last Admin: 05/18/23 08:07 Dose: 1 mg Thiamine HCl (Thiamine Hcl 100 Mg Tablet) 100 mg PO DAILY [facility] Last Admin: 05/18/23 08:07 Dose: 100 mg Trazodone HCl (Trazodone Hcl 50 Mg Tablet) 50 mg PO BEDTIME PRN PRN Reason: Insomnia Last Admin: 05/17/23 21:22 Dose: 50 mg Allergies Allergies Allergy/AdvReac Type Severity Reaction Status Date / Time bee pollen Allergy Anaphylaxis Verified 05/08/23 12:11 Assessment & Plan Assessment & Plan (1) Suicidal ideation: Status: Acute Code(s): R45.851 - Suicidal ideations (2) Mood disorder: Status: Acute Code(s): F39 - Unspecified mood [affective] disorder (3) Alcohol use disorder: Status: Acute Code(s): F10.90 - Alcohol use, unspecified, uncomplicated (4) Cocaine use disorder: Status: Acute Code(s): F14.10 - Cocaine abuse, uncomplicated Plan The patient is a middle-aged [place] descent female, , with a past history of prior admissions into the hospital for psychosis, disorganization alcohol and cocaine abuse, chronically homeless with unstable housing, removed from a hotel since she was disorganized. She tested positive to cocaine in the unit. She signed a 3 day notice. Plan 1. Gather collateral information. 2. Continue with regular medications. 3. At this moment on 50 minutes checks since the patient is able to contract for safety. 4. Continue with medical workout. Hospitalist consult ordered on May 10 for edema 5. Start working on discharge planning. Reason for continued inpatient stay Substantial Risk for: inability to function, rapid decompensation and med/psych decompensation Time Spent With Patient Time: Total time managing care of this patient today __20__ minutes.
[2023-05-18 19:45] VITALS: BP 131/60; PULSE 104; RESP 18; TEMP 36.3; O2SAT 98
[2023-05-18 20:03] LABS: Glucose, Whole Blood 184 mg/dL (60-115)
[2023-05-18] MEDS: Melatonin 3 MG TABLET 6 MG PO (20:29)
[2023-05-18] MEDS: clonazePAM 0.5 MG TABLET PO (20:29)
[2023-05-18] MEDS: Atorvastatin Calcium 40 MG TABLET PO (20:29)
[2023-05-18] MEDS: hydrOXYzine HCL 25 MG TABLET PO (23:34)
[2023-05-18] MEDS: traZODone HCL 50 MG TABLET PO (23:34)
[2023-05-18] MEDS: guaiFENesin 100 MG/5 ML LIQUID 10 ML PO (23:38)
[2023-05-18] MEDS: Albuterol Sulfate 90 MCG 8 GM INHALER 1 PUFF INHALE (23:38)
[2023-05-19] MEDS: Acetaminophen 325 MG TABLET 650 MG PO ×3 (04:02→21:25)
[2023-05-19] MEDS: Omeprazole 40 MG CAPSULE.DR PO (05:16)
[2023-05-19 06:02] LABS: Glucose, Whole Blood 150 mg/dL (60-115)
[2023-05-19] MEDS: Nicotine Polacrilex 2 MG GUM BUCCAL ×4 (06:49→14:54)
[2023-05-19 08:55] VITALS: BP 145/60; PULSE 106; RESP 15; TEMP 36.4; O2SAT 100
[2023-05-19] MEDS: Insulin Glargine,Hum.rec.anlog 100 UNIT/ML 10 ML VIAL 15 UNIT SUBCUT (08:56)
[2023-05-19] MEDS: Insulin Lispro 100 UNIT/ML 3 ML VIAL SUBCUT ×6 (08:56→21:06)
[2023-05-19] MEDS: hydroCHLOROthiazide 12.5 MG TABLET PO (08:57)
[2023-05-19] MEDS: risperiDONE 1 MG TABLET PO ×2 (08:57→21:07)
[2023-05-19] MEDS: Aspirin 81 MG TAB.CHEW PO (08:57)
[2023-05-19] MEDS: Thiamine HCL 100 MG TABLET PO (08:57)
[2023-05-19] MEDS: lisinopriL 10 MG TABLET PO (08:57)
[2023-05-19] MEDS: Folic Acid 1 MG TABLET PO (08:57)
[2023-05-19] MEDS: Metoprolol Tartrate 25 MG TABLET PO (08:57)
[2023-05-19] MEDS: Gabapentin 400 MG CAPSULE PO ×3 (08:57→21:06)
--- NOTE | 2023-05-19 10:18 | HO.PSYCHPN ---
Subjective Subjective Date of Service: 05/19/23 Reason For Visit: SI Subjective Notes: Conditional Voluntary Interim History: The nursing staff reported the patient had been compliant with treatment no behavioral issues. The social science research assistant reported that the medical respite possibility was exhausted. She will contact her family for safe discharge planning. On interview the patient denies new symptoms besides mild edema. No safety concerns at this moment. Mental Status Exam Mental Status Exam Patient Appearance: Well Grooomed and Appropriate Patient Orientation: Person and Situation Level of Consciousness: Awake and Appropriate Patient Behavior: Guarded and Passive Mood Description: Calm Affect Description: Constricted Patient Cognition Impaired: Yes Ability to Follow Directions: Good Speech Pattern: Clear Hallucinations: None Delusions: Not Present Thought Process: Distracted and Slowed Thinking Thought Content: positive for [place] and positive for Poverty of Content Judgement: Fair Diagnostics Vital Signs (24Hr): Vital Signs - 24 hr 05/18/23 19:45 05/19/23 08:55 Temperature 97.4 F 97.5 F Pulse Rate 104 H 106 H Respiratory Rate 18 15 Blood Pressure 131/60 145/60 H Pulse Oximetry 98 100 Oxygen Delivery Method Room Air Room Air BMI result Body Mass Index 35.0 Labs 05/08/23 12:26 05/17/23 07:16 Labs: Laboratory Results - last 48 hr 05/17/23 05/17/23 05/17/23 11:29 16:05 20:19 POC Glucose 233 H 109 218 H 05/18/23 05/18/23 05/18/23 05:52 11:25 16:16 POC Glucose 173 H 206 H 124 H 05/18/23 05/19/23 19:50 05:46 POC Glucose 184 H 150 H Imaging Radiology Impressions: ITS Impressions Ankle X-Ray 05/12/23 22:24 IMPRESSION: * No acute osseous injury at the right ankle. * There is nonspecific diffuse soft tissue edema of the visualized lower leg, ankle and foot. Medications Medications Current Medications Acetaminophen (Acetaminophen 325 Mg Tablet) 650 mg PO Q6H PRN PRN Reason: Headache/Pain Mild Scale (1-3) Last Admin: 05/19/23 04:02 Dose: 650 mg Al Hydroxide/Mg Hydroxide (Magnesium Hydrox/Alum Hydrox 30 Ml Oral.Susp) 30 ml PO Q6H PRN PRN Reason: Heartburn/Nausea Albuterol Sulfate (Albuterol Sulfate 90 Mcg 8 Gm Inhaler) 1 puff INHALE QID PRN PRN Reason: wheezing Last Admin: 05/18/23 23:38 Dose: 1 puff Aspirin (Aspirin 81 Mg Tab.Chew) 81 mg PO DAILY [facility] Last Admin: 05/19/23 08:57 Dose: 81 mg Atorvastatin Calcium (Atorvastatin Calcium 40 Mg Tablet) 40 mg PO BEDTIME [facility] Last Admin: 05/18/23 20:29 Dose: 40 mg Clonazepam (Clonazepam 0.5 Mg Tablet) 0.5 mg PO BID [facility] Last Admin: 05/19/23 09:02 Dose: Not Given Folic Acid (Folic Acid 1 Mg Tablet) 1 mg PO DAILY [facility] Last Admin: 05/19/23 08:57 Dose: 1 mg Gabapentin (Gabapentin 400 Mg Capsule) 400 mg PO TID [facility] Last Admin: 05/19/23 08:57 Dose: 400 mg Guaifenesin (Guaifenesin 100 Mg/5 Ml Liquid) 10 ml PO Q4H PRN PRN Reason: Cough Last Admin: 05/18/23 23:38 Dose: 10 ml Hydrochlorothiazide (Hydrochlorothiazide 12.5 Mg Tablet) 12.5 mg PO DAILY [facility]; Protocol Last Admin: 05/19/23 08:57 Dose: 12.5 mg Hydroxyzine HCl (Hydroxyzine Hcl 25 Mg Tablet) 25 mg PO Q6H PRN PRN Reason: Anxiety Last Admin: 05/18/23 23:34 Dose: 25 mg Insulin Glargine (Insulin Glargine,Hum.Rec.Anlog 100 Unit/Ml 10 Ml Vial) 15 unit SUBCUT DAILY [facility] Last Admin: 05/19/23 08:56 Dose: 15 unit Insulin Human Lispro (Insulin Lispro 100 Unit/Ml 3 Ml Vial) 0 unit SUBCUT QIDACHS [facility]; Protocol Last Admin: 05/19/23 08:58 Dose: Not Given Insulin Human Lispro (Insulin Lispro 100 Unit/Ml 3 Ml Vial) 5 unit SUBCUT QIDACHS [facility] Last Admin: 05/19/23 08:56 Dose: 5 unit Lisinopril (Lisinopril 10 Mg Tablet) 10 mg PO DAILY [facility]; Protocol Last Admin: 05/19/23 08:57 Dose: 10 mg Magnesium Hydroxide (Milk Of Magnesia 30 Ml Oral.Susp) 30 ml PO DAILY PRN PRN Reason: Constipation Melatonin (Melatonin 3 Mg Tablet) 6 mg PO BEDTIME PRN PRN Reason: Insomnia Last Admin: 05/18/23 20:29 Dose: 6 mg Metoprolol Tartrate (Metoprolol Tartrate 25 Mg Tablet) 25 mg PO DAILY [facility]; Protocol Last Admin: 05/19/23 08:57 Dose: 25 mg Nicotine Polacrilex (Nicotine Polacrilex 2 Mg Gum) 2 mg BUCCAL Q2H PRN PRN Reason: Nicotine Cravings Last Admin: 05/19/23 09:12 Dose: 2 mg Omeprazole (Omeprazole 40 Mg Capsule.Dr) 40 mg PO DAILY@0630 [facility] Last Admin: 05/19/23 05:16 Dose: 40 mg Risperidone (Risperidone 1 Mg Tablet) 1 mg PO BID [facility] Last Admin: 05/19/23 08:57 Dose: 1 mg Thiamine HCl (Thiamine Hcl 100 Mg Tablet) 100 mg PO DAILY [facility] Last Admin: 05/19/23 08:57 Dose: 100 mg Trazodone HCl (Trazodone Hcl 50 Mg Tablet) 50 mg PO BEDTIME PRN PRN Reason: Insomnia Last Admin: 05/18/23 23:34 Dose: 50 mg Allergies Allergies Allergy/AdvReac Type Severity Reaction Status Date / Time bee pollen Allergy Anaphylaxis Verified 05/08/23 12:11 Assessment & Plan Assessment & Plan (1) Suicidal ideation: Status: Acute Code(s): R45.851 - Suicidal ideations (2) Mood disorder: Status: Acute Code(s): F39 - Unspecified mood [affective] disorder (3) Alcohol use disorder: Status: Acute Code(s): F10.90 - Alcohol use, unspecified, uncomplicated (4) Cocaine use disorder: Status: Acute Code(s): F14.10 - Cocaine abuse, uncomplicated Plan The patient is a middle-aged [place] descent female, , with a past history of prior admissions into the hospital for psychosis, disorganization alcohol and cocaine abuse, chronically homeless with unstable housing, removed from a hotel since she was disorganized. She tested positive to cocaine in the unit. She signed a 3 day notice. Plan 1. Gather collateral information. 2. Continue with regular medications. 3. At this moment on 50 minutes checks since the patient is able to contract for safety. 4. Continue with medical workout. Hospitalist consult ordered on May 10 for edema 5. Start working on discharge planning. Reason for continued inpatient stay Substantial Risk for: inability to function, rapid decompensation and med/psych decompensation Time Spent With Patient Time: Total time managing care of this patient today __20__ minutes.
[2023-05-19 11:37] LABS: Glucose, Whole Blood 217 mg/dL (60-115)
[2023-05-19 16:20] LABS: Glucose, Whole Blood 134 mg/dL (60-115)
[2023-05-19 19:50] VITALS: BP 111/67; PULSE 113; RESP 18; TEMP 36.9; O2SAT 99
[2023-05-19 20:19] LABS: Glucose, Whole Blood 187 mg/dL (60-115)
[2023-05-19] MEDS: Atorvastatin Calcium 40 MG TABLET PO (21:06)
[2023-05-19] MEDS: traZODone HCL 50 MG TABLET PO (21:06)
[2023-05-19] MEDS: clonazePAM 0.5 MG TABLET PO (21:06)
[2023-05-20] MEDS: traZODone HCL 50 MG TABLET PO ×2 (00:50→20:28)
[2023-05-20] MEDS: Melatonin 3 MG TABLET 6 MG PO (00:50)
[2023-05-20] MEDS: hydrOXYzine HCL 25 MG TABLET PO ×2 (00:50→20:13)
[2023-05-20] MEDS: guaiFENesin 100 MG/5 ML LIQUID 10 ML PO ×2 (01:02→10:11)
[2023-05-20] MEDS: Nicotine Polacrilex 2 MG GUM BUCCAL ×6 (01:03→20:34)
[2023-05-20] MEDS: Omeprazole 40 MG CAPSULE.DR PO (05:42)
[2023-05-20] MEDS: Acetaminophen 325 MG TABLET 650 MG PO ×3 (05:45→20:12)
[2023-05-20 06:24] LABS: Glucose, Whole Blood 142 mg/dL (60-115)
[2023-05-20 08:04] VITALS: BP 132/65; PULSE 97; RESP 17; TEMP 36.6; O2SAT 99
[2023-05-20] MEDS: risperiDONE 1 MG TABLET PO ×2 (08:06→20:12)
[2023-05-20] MEDS: Thiamine HCL 100 MG TABLET PO (08:06)
[2023-05-20] MEDS: Metoprolol Tartrate 25 MG TABLET PO (08:06)
[2023-05-20] MEDS: hydroCHLOROthiazide 12.5 MG TABLET PO (08:06)
[2023-05-20] MEDS: Folic Acid 1 MG TABLET PO (08:06)
[2023-05-20] MEDS: Gabapentin 400 MG CAPSULE PO ×3 (08:06→20:12)
[2023-05-20] MEDS: lisinopriL 10 MG TABLET PO (08:06)
[2023-05-20] MEDS: Aspirin 81 MG TAB.CHEW PO (08:07)
[2023-05-20] MEDS: Insulin Lispro 100 UNIT/ML 3 ML VIAL SUBCUT ×6 (08:10→20:27)
[2023-05-20] MEDS: Insulin Glargine,Hum.rec.anlog 100 UNIT/ML 10 ML VIAL 15 UNIT SUBCUT (08:11)
--- NOTE | 2023-05-20 08:41 | HO.PSYCHPN ---
Subjective Subjective Date of Service: 05/20/23 Reason For Visit: SI Subjective Notes: Conditional Voluntary and 3 Day Interim History: The nursing staff reported the patient took Tylenol last night for headaches. She also to trazodone at night for sleep, she slept 7 hours. On interview the patient denies new symptoms, compliant with treatment. Mental Status Exam Mental Status Exam Patient Appearance: Appropriate Patient Orientation: Person and Situation Level of Consciousness: Awake and Appropriate Patient Behavior: Guarded and Passive Mood Description: Calm Affect Description: Constricted Patient Cognition Impaired: Yes Ability to Follow Directions: Good Speech Pattern: Clear Hallucinations: None Delusions: Not Present Thought Process: Distracted and Slowed Thinking Thought Content: positive for [place] and positive for Poverty of Content Judgement: Fair Diagnostics Vital Signs (24Hr): Vital Signs - 24 hr 05/19/23 08:55 05/19/23 19:50 05/20/23 08:04 Temperature 97.5 F 98.5 F 97.8 F Pulse Rate 106 H 113 H 97 Respiratory Rate 15 18 17 Blood Pressure 145/60 H 111/67 132/65 Pulse Oximetry 100 99 99 Oxygen Delivery Method Room Air Room Air Room Air BMI result Body Mass Index 35.0 Labs 05/08/23 12:26 05/17/23 07:16 Labs: Laboratory Results - last 48 hr 05/18/23 05/18/23 05/18/23 11:25 16:16 19:50 POC Glucose 206 H 124 H 184 H 05/19/23 05/19/23 05/19/23 05:46 11:24 16:06 POC Glucose 150 H 217 H 134 H 05/19/23 05/20/23 20:05 05:47 POC Glucose 187 H 142 H Imaging Radiology Impressions: ITS Impressions Ankle X-Ray 05/12/23 22:24 IMPRESSION: * No acute osseous injury at the right ankle. * There is nonspecific diffuse soft tissue edema of the visualized lower leg, ankle and foot. Medications Medications Current Medications Acetaminophen (Acetaminophen 325 Mg Tablet) 650 mg PO Q6H PRN PRN Reason: Headache/Pain Mild Scale (1-3) Last Admin: 05/20/23 05:45 Dose: 650 mg Al Hydroxide/Mg Hydroxide (Magnesium Hydrox/Alum Hydrox 30 Ml Oral.Susp) 30 ml PO Q6H PRN PRN Reason: Heartburn/Nausea Albuterol Sulfate (Albuterol Sulfate 90 Mcg 8 Gm Inhaler) 1 puff INHALE QID PRN PRN Reason: wheezing Last Admin: 05/18/23 23:38 Dose: 1 puff Aspirin (Aspirin 81 Mg Tab.Chew) 81 mg PO DAILY [facility] Last Admin: 05/20/23 08:07 Dose: 81 mg Atorvastatin Calcium (Atorvastatin Calcium 40 Mg Tablet) 40 mg PO BEDTIME [facility] Last Admin: 05/19/23 21:06 Dose: 40 mg Clonazepam (Clonazepam 0.5 Mg Tablet) 0.5 mg PO BID [facility] Last Admin: 05/20/23 08:07 Dose: Not Given Folic Acid (Folic Acid 1 Mg Tablet) 1 mg PO DAILY [facility] Last Admin: 05/20/23 08:06 Dose: 1 mg Gabapentin (Gabapentin 400 Mg Capsule) 400 mg PO TID [facility] Last Admin: 05/20/23 08:06 Dose: 400 mg Guaifenesin (Guaifenesin 100 Mg/5 Ml Liquid) 10 ml PO Q4H PRN PRN Reason: Cough Last Admin: 05/20/23 01:02 Dose: 10 ml Hydrochlorothiazide (Hydrochlorothiazide 12.5 Mg Tablet) 12.5 mg PO DAILY [facility]; Protocol Last Admin: 05/20/23 08:06 Dose: 12.5 mg Hydroxyzine HCl (Hydroxyzine Hcl 25 Mg Tablet) 25 mg PO Q6H PRN PRN Reason: Anxiety Last Admin: 05/20/23 00:50 Dose: 25 mg Insulin Glargine (Insulin Glargine,Hum.Rec.Anlog 100 Unit/Ml 10 Ml Vial) 15 unit SUBCUT DAILY [facility] Last Admin: 05/20/23 08:11 Dose: 15 unit Insulin Human Lispro (Insulin Lispro 100 Unit/Ml 3 Ml Vial) 0 unit SUBCUT QIDACHS [facility]; Protocol Last Admin: 05/20/23 07:34 Dose: Not Given Insulin Human Lispro (Insulin Lispro 100 Unit/Ml 3 Ml Vial) 5 unit SUBCUT QIDACHS [facility] Last Admin: 05/20/23 08:10 Dose: 5 unit Lisinopril (Lisinopril 10 Mg Tablet) 10 mg PO DAILY [facility]; Protocol Last Admin: 05/20/23 08:06 Dose: 10 mg Magnesium Hydroxide (Milk Of Magnesia 30 Ml Oral.Susp) 30 ml PO DAILY PRN PRN Reason: Constipation Melatonin (Melatonin 3 Mg Tablet) 6 mg PO BEDTIME PRN PRN Reason: Insomnia Last Admin: 05/20/23 00:50 Dose: 6 mg Metoprolol Tartrate (Metoprolol Tartrate 25 Mg Tablet) 25 mg PO DAILY [facility]; Protocol Last Admin: 05/20/23 08:06 Dose: 25 mg Nicotine Polacrilex (Nicotine Polacrilex 2 Mg Gum) 2 mg BUCCAL Q2H PRN PRN Reason: Nicotine Cravings Last Admin: 05/20/23 05:50 Dose: 2 mg Omeprazole (Omeprazole 40 Mg Capsule.Dr) 40 mg PO DAILY@30 [facility] Last Admin: 05/20/23 05:42 Dose: 40 mg Risperidone (Risperidone 1 Mg Tablet) 1 mg PO BID [facility] Last Admin: 05/20/23 08:06 Dose: 1 mg Thiamine HCl (Thiamine Hcl 100 Mg Tablet) 100 mg PO DAILY [facility] Last Admin: 05/20/23 08:06 Dose: 100 mg Trazodone HCl (Trazodone Hcl 50 Mg Tablet) 50 mg PO BEDTIME PRN PRN Reason: Insomnia Last Admin: 05/20/23 00:50 Dose: 50 mg Allergies Allergies Allergy/AdvReac Type Severity Reaction Status Date / Time bee pollen Allergy Anaphylaxis Verified 05/08/23 12:11 Assessment & Plan Assessment & Plan (1) Suicidal ideation: Status: Acute Code(s): R45.851 - Suicidal ideations (2) Mood disorder: Status: Acute Code(s): F39 - Unspecified mood [affective] disorder (3) Alcohol use disorder: Status: Acute Code(s): F10.90 - Alcohol use, unspecified, uncomplicated (4) Cocaine use disorder: Status: Acute Code(s): F14.10 - Cocaine abuse, uncomplicated Plan The patient is a middle-aged [place] descent female, , with a past history of prior admissions into the hospital for psychosis, disorganization alcohol and cocaine abuse, chronically homeless with unstable housing, removed from a hotel since she was disorganized. She tested positive to cocaine in the unit. She signed a 3 day notice. Plan 1. Gather collateral information. 2. Continue with regular medications. 3. At this moment on 50 minutes checks since the patient is able to contract for safety. 4. Continue with medical workout. Hospitalist consult ordered on May 10 for edema 5. Start working on discharge planning. Reason for continued inpatient stay Substantial Risk for: inability to function, rapid decompensation and med/psych decompensation Time Spent With Patient Time: Total time managing care of this patient today __20__ minutes.
[2023-05-20 11:29] LABS: Glucose, Whole Blood 164 mg/dL (60-115)
[2023-05-20 16:23] LABS: Glucose, Whole Blood 208 mg/dL (60-115)
[2023-05-20 18:00] VITALS: BP 102/55; PULSE 92; RESP 16; TEMP 36.3; O2SAT 100
[2023-05-20] MEDS: Atorvastatin Calcium 40 MG TABLET PO (20:12)
[2023-05-20] MEDS: clonazePAM 0.5 MG TABLET PO (20:14)
[2023-05-20 21:17] LABS: Glucose, Whole Blood 107 mg/dL (60-115)
[2023-05-21] MEDS: Omeprazole 40 MG CAPSULE.DR PO (05:42)
[2023-05-21 05:55] LABS: Glucose, Whole Blood 161 mg/dL (60-115)
[2023-05-21] MEDS: Acetaminophen 325 MG TABLET 650 MG PO ×3 (05:55→21:37)
[2023-05-21 07:44] VITALS: BP 104/67; PULSE 100; RESP 18; TEMP 36; O2SAT 98
[2023-05-21] MEDS: clonazePAM 0.5 MG TABLET PO ×2 (08:05→21:39)
[2023-05-21] MEDS: Metoprolol Tartrate 25 MG TABLET PO (08:06)
[2023-05-21] MEDS: lisinopriL 10 MG TABLET PO (08:06)
[2023-05-21] MEDS: Thiamine HCL 100 MG TABLET PO (08:06)
[2023-05-21] MEDS: hydroCHLOROthiazide 12.5 MG TABLET PO (08:06)
[2023-05-21] MEDS: Aspirin 81 MG TAB.CHEW PO (08:06)
[2023-05-21] MEDS: Gabapentin 400 MG CAPSULE PO ×3 (08:06→21:38)
[2023-05-21] MEDS: Folic Acid 1 MG TABLET PO (08:06)
[2023-05-21] MEDS: Insulin Lispro 100 UNIT/ML 3 ML VIAL SUBCUT ×7 (08:07→21:46)
[2023-05-21] MEDS: risperiDONE 1 MG TABLET PO ×2 (08:07→21:38)
[2023-05-21] MEDS: Nicotine Polacrilex 2 MG GUM BUCCAL ×4 (08:11→17:34)
--- NOTE | 2023-05-21 09:22 | HO.PSYCHPN ---
Subjective Subjective Date of Service: 05/21/23 Reason For Visit: SI Subjective Notes: Conditional Voluntary and 3 Day Interim History: The nursing staff reported the patient ask for Tylenol today at 06:00 o'clock for pain. She complains of lower edema. The staff reported that her boyfriend called her 4 or 5 times last evening and she refused to talk with him. She slept well last night. On interview the patient denies new symptoms. Mental Status Exam Mental Status Exam Patient Appearance: Appropriate Patient Orientation: Person and Situation Level of Consciousness: Awake and Appropriate Patient Behavior: Guarded and Passive Mood Description: Withdrawn Affect Description: Calm Patient Cognition Impaired: Yes Ability to Follow Directions: Good Speech Pattern: Clear Hallucinations: None Delusions: Not Present Thought Process: Distracted and Evasive Thought Content: positive for [place] and positive for Circumstantial Judgement: Fair Diagnostics Vital Signs (24Hr): Vital Signs - 24 hr 05/20/23 18:00 05/21/23 07:44 Temperature 97.4 F 96.8 F Pulse Rate 92 100 Respiratory Rate 16 18 Blood Pressure 102/55 L 104/67 Pulse Oximetry 100 98 Oxygen Delivery Method Room Air Room Air BMI result Body Mass Index 35.0 Labs 05/08/23 12:26 05/17/23 07:16 Labs: Laboratory Results - last 48 hr 05/19/23 05/19/23 05/19/23 11:24 16:06 20:05 POC Glucose 217 H 134 H 187 H 05/20/23 05/20/23 05/20/23 05:47 11:16 16:12 POC Glucose 142 H 164 H 208 H 05/20/23 05/21/23 20:10 05:41 POC Glucose 107 161 H Imaging Radiology Impressions: ITS Impressions Ankle X-Ray 05/12/23 22:24 IMPRESSION: * No acute osseous injury at the right ankle. * There is nonspecific diffuse soft tissue edema of the visualized lower leg, ankle and foot. Medications Medications Current Medications Acetaminophen (Acetaminophen 325 Mg Tablet) 650 mg PO Q6H PRN PRN Reason: Headache/Pain Mild Scale (1-3) Last Admin: 05/21/23 05:55 Dose: 650 mg Al Hydroxide/Mg Hydroxide (Magnesium Hydrox/Alum Hydrox 30 Ml Oral.Susp) 30 ml PO Q6H PRN PRN Reason: Heartburn/Nausea Albuterol Sulfate (Albuterol Sulfate 90 Mcg 8 Gm Inhaler) 1 puff INHALE QID PRN PRN Reason: wheezing Last Admin: 05/18/23 23:38 Dose: 1 puff Aspirin (Aspirin 81 Mg Tab.Chew) 81 mg PO DAILY [facility] Last Admin: 05/21/23 08:06 Dose: 81 mg Atorvastatin Calcium (Atorvastatin Calcium 40 Mg Tablet) 40 mg PO BEDTIME DHRUV Last Admin: 05/20/23 20:12 Dose: 40 mg Clonazepam (Clonazepam 0.5 Mg Tablet) 0.5 mg PO BID [facility] Last Admin: 05/21/23 08:05 Dose: 0.5 mg Folic Acid (Folic Acid 1 Mg Tablet) 1 mg PO DAILY [facility] Last Admin: 05/21/23 08:06 Dose: 1 mg Gabapentin (Gabapentin 400 Mg Capsule) 400 mg PO TID [facility] Last Admin: 05/21/23 08:06 Dose: 400 mg Guaifenesin (Guaifenesin 100 Mg/5 Ml Liquid) 10 ml PO Q4H PRN PRN Reason: Cough Last Admin: 05/20/23 10:11 Dose: 10 ml Hydrochlorothiazide (Hydrochlorothiazide 12.5 Mg Tablet) 12.5 mg PO DAILY [facility]; Protocol Last Admin: 05/21/23 08:06 Dose: 12.5 mg Hydroxyzine HCl (Hydroxyzine Hcl 25 Mg Tablet) 25 mg PO Q6H PRN PRN Reason: Anxiety Last Admin: 05/20/23 20:13 Dose: 25 mg Insulin Glargine (Insulin Glargine,Hum.Rec.Anlog 100 Unit/Ml 10 Ml Vial) 15 unit SUBCUT DAILY [facility] Last Admin: 05/20/23 08:11 Dose: 15 unit Insulin Human Lispro (Insulin Lispro 100 Unit/Ml 3 Ml Vial) 0 unit SUBCUT QIDACHS [facility]; Protocol Last Admin: 05/21/23 08:07 Dose: 2 unit Insulin Human Lispro (Insulin Lispro 100 Unit/Ml 3 Ml Vial) 5 unit SUBCUT QIDACHS [facility] Last Admin: 05/21/23 08:07 Dose: 5 unit Lisinopril (Lisinopril 10 Mg Tablet) 10 mg PO DAILY [facility]; Protocol Last Admin: 05/21/23 08:06 Dose: 10 mg Magnesium Hydroxide (Milk Of Magnesia 30 Ml Oral.Susp) 30 ml PO DAILY PRN PRN Reason: Constipation Melatonin (Melatonin 3 Mg Tablet) 6 mg PO BEDTIME PRN PRN Reason: Insomnia Last Admin: 05/20/23 00:50 Dose: 6 mg Metoprolol Tartrate (Metoprolol Tartrate 25 Mg Tablet) 25 mg PO DAILY [facility]; Protocol Last Admin: 05/21/23 08:06 Dose: 25 mg Nicotine Polacrilex (Nicotine Polacrilex 2 Mg Gum) 2 mg BUCCAL Q2H PRN PRN Reason: Nicotine Cravings Last Admin: 05/21/23 08:11 Dose: 2 mg Omeprazole (Omeprazole 40 Mg Capsule.Dr) 40 mg PO DAILY@0630 [facility] Last Admin: 05/21/23 05:42 Dose: 40 mg Risperidone (Risperidone 1 Mg Tablet) 1 mg PO BID [facility] Last Admin: 05/21/23 08:07 Dose: 1 mg Thiamine HCl (Thiamine Hcl 100 Mg Tablet) 100 mg PO DAILY [facility] Last Admin: 05/21/23 08:06 Dose: 100 mg Trazodone HCl (Trazodone Hcl 50 Mg Tablet) 50 mg PO BEDTIME PRN PRN Reason: Insomnia Last Admin: 05/20/23 20:28 Dose: 50 mg Allergies Allergies Allergy/AdvReac Type Severity Reaction Status Date / Time bee pollen Allergy Anaphylaxis Verified 05/08/23 12:11 Assessment & Plan Assessment & Plan (1) Suicidal ideation: Status: Acute Code(s): R45.851 - Suicidal ideations (2) Mood disorder: Status: Acute Code(s): F39 - Unspecified mood [affective] disorder (3) Alcohol use disorder: Status: Acute Code(s): F10.90 - Alcohol use, unspecified, uncomplicated (4) Cocaine use disorder: Status: Acute Code(s): F14.10 - Cocaine abuse, uncomplicated Plan The patient is a middle-aged [place] descent female, , with a past history of prior admissions into the hospital for psychosis, disorganization alcohol and cocaine abuse, chronically homeless with unstable housing, removed from a hotel since she was disorganized. She tested positive to cocaine in the unit. She signed a 3 day notice. Plan 1. Gather collateral information. 2. Continue with regular medications. 3. At this moment on 50 minutes checks since the patient is able to contract for safety. 4. Continue with medical workout. Hospitalist consult ordered on May 10 for edema 5. Start working on discharge planning. Reason for continued inpatient stay Substantial Risk for: inability to function, rapid decompensation and med/psych decompensation Time Spent With Patient Time: Total time managing care of this patient today __20__ minutes.
[2023-05-21 11:25] LABS: Glucose, Whole Blood 152 mg/dL (60-115)
[2023-05-21] MEDS: Insulin Glargine,Hum.rec.anlog 100 UNIT/ML 10 ML VIAL 15 UNIT SUBCUT (11:29)
[2023-05-21 16:31] LABS: Glucose, Whole Blood 172 mg/dL (60-115)
[2023-05-21 18:00] VITALS: BP 115/60; PULSE 106; RESP 18; TEMP 36.4; O2SAT 99
[2023-05-21 21:23] LABS: Glucose, Whole Blood 118 mg/dL (60-115)
[2023-05-21] MEDS: Melatonin 3 MG TABLET 6 MG PO (21:37)
[2023-05-21] MEDS: hydrOXYzine HCL 25 MG TABLET PO (21:38)
[2023-05-21] MEDS: Atorvastatin Calcium 40 MG TABLET PO (21:38)
[2023-05-21] MEDS: traZODone HCL 50 MG TABLET PO (21:38)
[2023-05-22] MEDS: traZODone HCL 50 MG TABLET PO ×2 (02:32→20:49)
[2023-05-22] MEDS: Acetaminophen 325 MG TABLET 650 MG PO ×4 (03:53→22:45)
[2023-05-22 06:00] VITALS: BP 103/73; PULSE 109; RESP 18; TEMP 36.6; O2SAT 99
[2023-05-22] MEDS: Omeprazole 40 MG CAPSULE.DR PO (06:18)
[2023-05-22 06:27] LABS: Glucose, Whole Blood 135 mg/dL (60-115)
[2023-05-22] MEDS: Insulin Lispro 100 UNIT/ML 3 ML VIAL SUBCUT ×5 (08:00→20:47)
[2023-05-22] MEDS: Gabapentin 400 MG CAPSULE PO ×3 (08:38→20:48)
[2023-05-22] MEDS: Thiamine HCL 100 MG TABLET PO (08:38)
[2023-05-22] MEDS: risperiDONE 1 MG TABLET PO ×2 (08:38→20:49)
[2023-05-22] MEDS: Metoprolol Tartrate 25 MG TABLET PO (08:38)
[2023-05-22] MEDS: Folic Acid 1 MG TABLET PO (08:38)
[2023-05-22] MEDS: lisinopriL 10 MG TABLET PO (08:39)
[2023-05-22] MEDS: Aspirin 81 MG TAB.CHEW PO (08:39)
[2023-05-22] MEDS: hydroCHLOROthiazide 12.5 MG TABLET PO (08:39)
[2023-05-22] MEDS: clonazePAM 0.5 MG TABLET PO ×2 (08:40→20:48)
[2023-05-22] MEDS: Insulin Glargine,Hum.rec.anlog 100 UNIT/ML 10 ML VIAL 15 UNIT SUBCUT (08:42)
[2023-05-22] MEDS: guaiFENesin 100 MG/5 ML LIQUID 10 ML PO (08:49)
[2023-05-22] MEDS: Nicotine Polacrilex 2 MG GUM BUCCAL ×3 (08:49→20:48)
[2023-05-22] MEDS: Albuterol Sulfate 90 MCG 8 GM INHALER 1 PUFF INHALE (08:49)
[2023-05-22 11:26] LABS: Glucose, Whole Blood 108 mg/dL (60-115)
--- NOTE | 2023-05-22 14:16 | HO.PSYCHPN ---
Subjective Subjective Date of Service: 05/22/23 Reason For Visit: SI Subjective Notes: Conditional Voluntary Interim History: The nursing staff reported the patient had been compliant with treatment, she main complaint is edema. On interview the patient denies new symptoms besides edema no psychiatric symptoms at this point. She agreed to be discharged tomorrow. Mental Status Exam Mental Status Exam Patient Appearance: Well Grooomed and Appropriate Patient Orientation: Person and Situation Level of Consciousness: Awake and Appropriate Patient Behavior: Appropriate Mood Description: Constricted Affect Description: Calm Patient Cognition Impaired: Yes Ability to Follow Directions: Good Speech Pattern: Clear Hallucinations: None Delusions: Not Present Thought Process: Distracted and Evasive Thought Content: positive for [place] and positive for Poverty of Content Judgement: Fair Diagnostics Vital Signs (24Hr): Vital Signs - 24 hr 05/21/23 18:00 05/22/23 06:00 Temperature 97.6 F 97.8 F Pulse Rate 106 H 109 H Respiratory Rate 18 18 Blood Pressure 115/60 103/73 Pulse Oximetry 99 99 Oxygen Delivery Method Room Air Room Air BMI result Body Mass Index 35.0 Labs 05/08/23 12:26 05/17/23 07:16 Labs: Laboratory Results - last 48 hr 05/20/23 05/20/23 05/21/23 16:12 20:10 05:41 POC Glucose 208 H 107 161 H 05/21/23 05/21/23 05/21/23 11:20 16:27 19:43 POC Glucose 152 H 172 H 118 H 05/22/23 05/22/23 05:53 11:22 POC Glucose 135 H 108 Imaging Radiology Impressions: ITS Impressions Ankle X-Ray 05/12/23 22:24 IMPRESSION: * No acute osseous injury at the right ankle. * There is nonspecific diffuse soft tissue edema of the visualized lower leg, ankle and foot. Medications Medications Current Medications Acetaminophen (Acetaminophen 325 Mg Tablet) 650 mg PO Q6H PRN PRN Reason: Headache/Pain Mild Scale (1-3) Last Admin: 05/22/23 09:44 Dose: 650 mg Al Hydroxide/Mg Hydroxide (Magnesium Hydrox/Alum Hydrox 30 Ml Oral.Susp) 30 ml PO Q6H PRN PRN Reason: Heartburn/Nausea Albuterol Sulfate (Albuterol Sulfate 90 Mcg 8 Gm Inhaler) 1 puff INHALE QID PRN PRN Reason: wheezing Last Admin: 05/22/23 08:49 Dose: 1 puff Aspirin (Aspirin 81 Mg Tab.Chew) 81 mg PO DAILY [facility] Last Admin: 05/22/23 08:39 Dose: 81 mg Atorvastatin Calcium (Atorvastatin Calcium 40 Mg Tablet) 40 mg PO BEDTIME [facility] Last Admin: 05/21/23 21:38 Dose: 40 mg Clonazepam (Clonazepam 0.5 Mg Tablet) 0.5 mg PO BID [facility] Last Admin: 05/22/23 08:40 Dose: 0.5 mg Folic Acid (Folic Acid 1 Mg Tablet) 1 mg PO DAILY [facility] Last Admin: 05/22/23 08:38 Dose: 1 mg Gabapentin (Gabapentin 400 Mg Capsule) 400 mg PO TID [facility] Last Admin: 05/22/23 08:38 Dose: 400 mg Guaifenesin (Guaifenesin 100 Mg/5 Ml Liquid) 10 ml PO Q4H PRN PRN Reason: Cough Last Admin: 05/22/23 08:49 Dose: 10 ml Hydrochlorothiazide (Hydrochlorothiazide 12.5 Mg Tablet) 12.5 mg PO DAILY [facility]; Protocol Last Admin: 05/22/23 08:39 Dose: 12.5 mg Hydroxyzine HCl (Hydroxyzine Hcl 25 Mg Tablet) 25 mg PO Q6H PRN PRN Reason: Anxiety Last Admin: 05/21/23 21:38 Dose: 25 mg Insulin Glargine (Insulin Glargine,Hum.Rec.Anlog 100 Unit/Ml 10 Ml Vial) 15 unit SUBCUT DAILY [facility] Last Admin: 05/22/23 08:42 Dose: 15 unit Insulin Human Lispro (Insulin Lispro 100 Unit/Ml 3 Ml Vial) 0 unit SUBCUT QIDACHS [facility]; Protocol Last Admin: 05/22/23 11:24 Dose: Not Given Insulin Human Lispro (Insulin Lispro 100 Unit/Ml 3 Ml Vial) 5 unit SUBCUT QIDACHS [facility] Last Admin: 05/22/23 11:33 Dose: 5 unit Lisinopril (Lisinopril 10 Mg Tablet) 10 mg PO DAILY [facility]; Protocol Last Admin: 05/22/23 08:39 Dose: 10 mg Magnesium Hydroxide (Milk Of Magnesia 30 Ml Oral.Susp) 30 ml PO DAILY PRN PRN Reason: Constipation Melatonin (Melatonin 3 Mg Tablet) 6 mg PO BEDTIME PRN PRN Reason: Insomnia Last Admin: 05/21/23 21:37 Dose: 6 mg Metoprolol Tartrate (Metoprolol Tartrate 25 Mg Tablet) 25 mg PO DAILY [facility]; Protocol Last Admin: 05/22/23 08:38 Dose: 25 mg Nicotine Polacrilex (Nicotine Polacrilex 2 Mg Gum) 2 mg BUCCAL Q2H PRN PRN Reason: Nicotine Cravings Last Admin: 05/22/23 08:49 Dose: 2 mg Omeprazole (Omeprazole 40 Mg Capsule.Dr) 40 mg PO DAILY@0630 [facility] Last Admin: 05/22/23 06:18 Dose: 40 mg Risperidone (Risperidone 1 Mg Tablet) 1 mg PO BID [facility] Last Admin: 05/22/23 08:38 Dose: 1 mg Thiamine HCl (Thiamine Hcl 100 Mg Tablet) 100 mg PO DAILY [facility] Last Admin: 05/22/23 08:38 Dose: 100 mg Trazodone HCl (Trazodone Hcl 50 Mg Tablet) 50 mg PO BEDTIME PRN PRN Reason: Insomnia Last Admin: 05/22/23 02:32 Dose: 50 mg Allergies Allergies Allergy/AdvReac Type Severity Reaction Status Date / Time bee pollen Allergy Anaphylaxis Verified 05/08/23 12:11 Assessment & Plan Assessment & Plan (1) Suicidal ideation: Status: Acute Code(s): R45.851 - Suicidal ideations (2) Mood disorder: Status: Acute Code(s): F39 - Unspecified mood [affective] disorder (3) Alcohol use disorder: Status: Acute Code(s): F10.90 - Alcohol use, unspecified, uncomplicated (4) Cocaine use disorder: Status: Acute Code(s): F14.10 - Cocaine abuse, uncomplicated Plan The patient is a middle-aged [place] descent female, , with a past history of prior admissions into the hospital for psychosis, disorganization alcohol and cocaine abuse, chronically homeless with unstable housing, removed from a hotel since she was disorganized. She tested positive to cocaine in the unit. She signed a 3 day notice. Plan 1. Gather collateral information. 2. Continue with regular medications. 3. At this moment on 50 minutes checks since the patient is able to contract for safety. 4. Continue with medical workout. Hospitalist consult ordered on May 10 for edema 5. Start working on discharge planning. Reason for continued inpatient stay Substantial Risk for: inability to function, rapid decompensation and med/psych decompensation Time Spent With Patient Time: Total time managing care of this patient today __20__ minutes.
--- NOTE | 2023-05-22 14:52 | PC.NURSE ---
Patient complains of bilateral lower leg edema and foot pain. Without TEDS due to waiting for larger size to come in. TEDS applied at 1450. Will continue to monitor.
[2023-05-22 16:21] LABS: Glucose, Whole Blood 186 mg/dL (60-115)
[2023-05-22 18:00] VITALS: BP 111/62; PULSE 102; RESP 18; TEMP 36.4; O2SAT 100
[2023-05-22 19:51] LABS: Glucose, Whole Blood 142 mg/dL (60-115)
[2023-05-22] MEDS: Melatonin 3 MG TABLET 6 MG PO (20:49)
[2023-05-22] MEDS: Atorvastatin Calcium 40 MG TABLET PO (20:49)
[2023-05-22] MEDS: hydrOXYzine HCL 25 MG TABLET PO (20:49)
[2023-05-23] MEDS: Omeprazole 40 MG CAPSULE.DR PO (05:44)
[2023-05-23] MEDS: Acetaminophen 325 MG TABLET 650 MG PO (05:47)
[2023-05-23] MEDS: Nicotine Polacrilex 2 MG GUM BUCCAL ×2 (05:50→11:56)
[2023-05-23 06:26] LABS: Glucose, Whole Blood 225 mg/dL (60-115)
[2023-05-23 08:00] VITALS: BP 128/66; PULSE 99; RESP 16; TEMP 36.1; O2SAT 99
--- NOTE | 2023-05-23 08:17 | PM.PSYDC ---
DS: Providers Provider Date of Service: 05/23/23 Date of admission: 05/09/23 12:03 Date of discharge: 05/23/23 Primary care physician: Unknown Physician Consults: 05/11/23 15:45 Consult to Hospitalist Routine Comment: Consulting Provider: Hospitalist Reason For Exam: edema R/O cellulitis DS: Diagnosis Discharge Diagnosis (1) Suicidal ideation: Status: Acute (2) Mood disorder: Status: Acute (3) Alcohol use disorder: Status: Acute (4) Cocaine use disorder: Status: Acute DS: Medications Discharge Medications Home Medications: Previous Rx's Medication Instructions Recorded acetaminophen 325 mg tablet 650 mg (2 x 325 mg) PO Q6H PRN 05/22/23 Headache/Pain Mild Scale (1-3) 30 days #60 tabs albuterol sulfate 90 mcg/actuation 1 inh inhalation QID PRN wheezing 05/22/23 aerosol inhaler #6.7 grams aspirin 81 mg chewable tablet 81 mg PO DAILY #30 tabs 05/22/23 atorvastatin 40 mg tablet 40 mg PO BEDTIME 30 days #30 tabs 05/22/23 clonazepam 0.5 mg tablet 0.5 mg PO BID #60 tabs 05/22/23 diclofenac sodium 1 % topical gel 4 g topical QID PRN pain 30 days 05/22/23 #5 grams folic acid 1 mg tablet 1 mg PO DAILY #30 tabs 05/22/23 gabapentin 400 mg capsule 400 mg PO TID #90 caps 05/22/23 guaifenesin 100 mg/5 mL oral liquid 100 mg (5 mL) PO Q4H PRN Cough 30 05/22/23 days #60 mL hydrochlorothiazide 12.5 mg tablet 12.5 mg PO DAILY 30 days #30 tabs 05/22/23 hydroxyzine HCl 25 mg tablet 25 mg PO Q6H PRN Anxiety 30 days 05/22/23 #60 tabs insulin glargine 100 unit/mL (3 15 unit (0.15 mL) subcut DAILY #3 05/22/23 mL) subcutaneous pen mL insulin lispro 100 unit/mL 5 unit (0.05 mL) subcut QIDACHS 05/22/23 subcutaneous solution (Admelog #10 mL U-100 Insulin lispro) insulin lispro 100 unit/mL See Protocol subcut QIDACHS #10 mL 05/22/23 subcutaneous solution (Admelog U-100 Insulin lispro) lisinopril 10 mg tablet 10 mg PO DAILY #30 tabs 05/22/23 melatonin 3 mg tablet 6 mg (2 x 3 mg) PO BEDTIME PRN 05/22/23 Insomnia #60 tabs metoprolol tartrate 25 mg tablet 25 mg PO DAILY #30 tabs 05/22/23 nicotine (polacrilex) 2 mg gum 2 mg buccal Q2H PRN Nicotine 05/22/23 Cravings 30 days #90 ea omeprazole 40 mg capsule,delayed 40 mg PO DAILY@0630 #30 caps 05/22/23 release risperidone 1 mg tablet 1 mg PO BID #30 tabs 05/22/23 thiamine mononitrate (vit B1) 100 100 mg PO DAILY 30 days #30 tabs 05/22/23 mg tablet trazodone 50 mg tablet 50 mg PO BEDTIME PRN Insomnia 30 05/22/23 days #60 tabs Mental Status Exam Mental Status Exam Patient Appearance: Well Grooomed Patient Orientation: Person, Place and Situation Level of Consciousness: Awake and Appropriate Patient Behavior: Guarded and Passive Mood Description: Withdrawn Affect Description: Constricted Patient Cognition Impaired: Yes Ability to Follow Directions: Good Speech Pattern: Clear Hallucinations: None Delusions: Not Present Thought Process: Linear Thought Content: positive for [place] and positive for Poverty of Content Judgement: Fair Data Data Completed and Pending Completed studies during hospitalization [Text1]: 05/16/23 05/16/23 05/16/23 08:13 11:35 16:04 Sodium 133 L Potassium 4.6 Chloride 98 Carbon Dioxide 25 Anion Gap 15 BUN 21 H Creatinine 0.70 Estim Creat Clear Calc 82.5 Estimated GFR > 60 POC Glucose 169 H 163 H Random Glucose 134 H Calcium 9.8 Total Bilirubin AST ALT Alkaline Phosphatase Total Protein Albumin 05/16/23 05/17/23 05/17/23 20:07 06:42 07:16 Sodium 133 L Potassium 4.4 Chloride 100 Carbon Dioxide 26 Anion Gap 11 L BUN 17 H Creatinine 0.73 Estim Creat Clear Calc 79.1 Estimated GFR > 60 POC Glucose 145 H 210 H Random Glucose 183 H Calcium 9.5 Total Bilirubin 0.3 AST 17 ALT 21 Alkaline Phosphatase 89 Total Protein 7.0 Albumin 3.7 05/17/23 05/17/23 05/17/23 11:29 16:05 20:19 Sodium Potassium Chloride Carbon Dioxide Anion Gap BUN Creatinine Estim Creat Clear Calc Estimated GFR POC Glucose 233 H 109 218 H Random Glucose Calcium Total Bilirubin AST ALT Alkaline Phosphatase Total Protein Albumin 05/18/23 05/18/23 05/18/23 05:52 11:25 16:16 Sodium Potassium Chloride Carbon Dioxide Anion Gap BUN Creatinine Estim Creat Clear Calc Estimated GFR POC Glucose 173 H 206 H 124 H Random Glucose Calcium Total Bilirubin AST ALT Alkaline Phosphatase Total Protein Albumin 05/18/23 05/19/23 05/19/23 19:50 05:46 11:24 Sodium Potassium Chloride Carbon Dioxide Anion Gap BUN Creatinine Estim Creat Clear Calc Estimated GFR POC Glucose 184 H 150 H 217 H Random Glucose Calcium Total Bilirubin AST ALT Alkaline Phosphatase Total Protein Albumin 05/19/23 05/19/23 05/20/23 16:06 20:05 05:47 Sodium Potassium Chloride Carbon Dioxide Anion Gap BUN Creatinine Estim Creat Clear Calc Estimated GFR POC Glucose 134 H 187 H 142 H Random Glucose Calcium Total Bilirubin AST ALT Alkaline Phosphatase Total Protein Albumin 05/20/23 05/20/23 05/20/23 11:16 16:12 20:10 Sodium Potassium Chloride Carbon Dioxide Anion Gap BUN Creatinine Estim Creat Clear Calc Estimated GFR POC Glucose 164 H 208 H 107 Random Glucose Calcium Total Bilirubin AST ALT Alkaline Phosphatase Total Protein Albumin 05/21/23 05/21/23 05/21/23 05:41 11:20 16:27 Sodium Potassium Chloride Carbon Dioxide Anion Gap BUN Creatinine Estim Creat Clear Calc Estimated GFR POC Glucose 161 H 152 H 172 H Random Glucose Calcium Total Bilirubin AST ALT Alkaline Phosphatase Total Protein Albumin 05/21/23 05/22/23 05/22/23 19:43 05:53 11:22 Sodium Potassium Chloride Carbon Dioxide Anion Gap BUN Creatinine Estim Creat Clear Calc Estimated GFR POC Glucose 118 H 135 H 108 Random Glucose Calcium Total Bilirubin AST ALT Alkaline Phosphatase Total Protein Albumin 05/22/23 05/22/23 05/23/23 16:16 19:34 06:16 Sodium Potassium Chloride Carbon Dioxide Anion Gap BUN Creatinine Estim Creat Clear Calc Estimated GFR POC Glucose 186 H 142 H 225 H Random Glucose Calcium Total Bilirubin AST ALT Alkaline Phosphatase Total Protein Albumin Imaging Diagnostic Imaging Impressions Ankle X-Ray 05/12/23 22:24 IMPRESSION: * No acute osseous injury at the right ankle. * There is nonspecific diffuse soft tissue edema of the visualized lower leg, ankle and foot. DS: Summary Hospital Course Hospital Course: The patient is a 57-year-old female with a past history of schizoaffective disorder and alcohol use disorder, very well known by this team since she had been admitted before referred for the emergency room after she was evicted from the hotel due to agitation in the context of alcohol abuse and disorganized behavior. Please see the HPI of the admission note for further details. On admission the patient was placed on CIWA protocol but she did not scored. The patient minimized her use of alcohol and her noncompliance. She was restarted on her regular medications and initially she signed a 3 day notice that she has recanted a couple of times. The patient was seen in the unit cooperative pleasant, easily redirectable, more concerned about her medical ailments. The patient has chronic homelessness and her family is partially involved in her care. Even though, the patient is able to do or her own ADLs, she is safe in the community. At the moment of the discharge, the patient was alert oriented and at baseline. No evidence of safety concerns. She has already said aftercare and she is willing to follow treatment in the community. Time spent discussing smoking cessation with patient: 3 to 10 minutes Status at Discharge Cognitive/behavioral status at discharge: At baseline Functional status at discharge: independent ambulation Overall status at discharge: patient is back to baseline Time Spent with Patient Time attestation: Total time managing care of this patient today __20__ minutes. Time spent: Less than 30 minutes Discharge Plan Discharge Anticipated Discharge Date/Time: 05/23/23 10:00 Patient Disposition: Home, Self-Care Discharge Diagnosis: Schizoaffective disorder Alcohol use disorder Cocaine use disorder Referrals: Psych Prescriber:Lashay Hagen ([facility]) [Other] - 05/30/23 3:00 pm (Telehealth- Lashay will call your cell phone at the appointment time ) Discharge Medications: New acetaminophen 325 mg Tablet 650 mg PO Q6H PRN (Reason: Headache/Pain Mild Scale (1-3)) 30 Days Qty: 60 0RF trazodone 50 mg Tablet 50 mg PO BEDTIME PRN (Reason: Insomnia) 30 Days Qty: 60 0RF nicotine (polacrilex) 2 mg Gum 2 mg buccal Q2H PRN (Reason: Nicotine Cravings) 30 Days Qty: 90 0RF guaifenesin 100 mg/5 mL Liquid 100 mg PO Q4H PRN (Reason: Cough) 30 Days Qty: 60 0RF hydroxyzine HCl 25 mg Tablet 25 mg PO Q6H PRN (Reason: Anxiety) 30 Days Qty: 60 0RF hydrochlorothiazide 12.5 mg Tablet 12.5 mg PO DAILY 30 Days Qty: 30 0RF Protocol: Hold for SBP< HOLD for SBP < : 90 thiamine mononitrate (vit B1) 100 mg Tablet 100 mg PO DAILY 30 Days Qty: 30 0RF Continued atorvastatin 40 mg Tablet 40 mg PO BEDTIME 30 Days Qty: 30 0RF clonazepam 0.5 mg Tablet 0.5 mg PO BID Qty: 60 0RF gabapentin 400 mg Capsule 400 mg PO TID Qty: 90 0RF melatonin 3 mg Tablet 6 mg PO BEDTIME PRN (Reason: Insomnia) Qty: 60 0RF omeprazole 40 mg Capsule,Delayed Release(Dr/Ec) 40 mg PO DAILY@0630 Qty: 30 0RF lisinopril 10 mg Tablet 10 mg PO DAILY Qty: 30 0RF Protocol: Hold for SBP< HOLD for SBP < : 90 aspirin 81 mg Tablet,Chewable 81 mg PO DAILY Qty: 30 0RF folic acid 1 mg Tablet 1 mg PO DAILY Qty: 30 0RF insulin lispro [Admelog U-100 Insulin lispro] 100 unit/mL Solution See Protocol subcut QIDACHS Qty: 10 0RF Protocol: Insulin Correction Scale Less than or equal to 110 ---- Give (units): 0 111 to 150 Give (units): 0 151 to 200 Give (units): 2 201 to 250 Give (units): 4 251 to 300 Give (units): 6 301 to 350 Give (units): 8 Greater than 350 Give (units): 10 Call MD if Blood Glucose > : 350 insulin lispro [Admelog U-100 Insulin lispro] 100 unit/mL Solution 5 unit subcut QIDACHS Qty: 10 0RF albuterol sulfate 90 mcg/actuation HFA aerosol inhaler 1 inh inhalation QID PRN (Reason: wheezing) Qty: 6.7 0RF risperidone 1 mg Tablet 1 mg PO BID Qty: 30 0RF metoprolol tartrate 25 mg Tablet 25 mg PO DAILY Qty: 30 0RF Protocol: Hold for SBP/HR < HOLD for SBP < : 90 HOLD for HR < : 60 insulin glargine 100 unit/mL (3 mL) insulin pen 15 unit subcut DAILY Qty: 3 0RF diclofenac sodium 1 % gel 4 g topical QID PRN (Reason: pain) 30 Days Qty: 5 0RF Discharge Orders: Discharge Order (Routine); Ordered 05/23/23 Ordered By: Kaiser Wade Diet: Advance to usual diet Activity on Discharge: As tolerated Stand Alone Forms: Patient Portal Discharge page Care Plan Goals: Care plan goals achieved in this admission Health Concerns: Continue treatment with PCP and other providers Plan of Treatment: Continue medication management as per outpatient providers Assessment: Middle-aged female with a past history of schizoaffective disorder, alcohol use disorder, cocaine use disorder referred to the emergency room after she was evicted from the hotel that she was staying due to disorganized behavior, homicidal threats and suicidal ideas in the context of intoxication. She was admitted here for continuation of care no evidence of safety concerns ready to be discharged in the community.
[2023-05-23] MEDS: Insulin Glargine,Hum.rec.anlog 100 UNIT/ML 10 ML VIAL 15 UNIT SUBCUT (08:37)
[2023-05-23] MEDS: Insulin Lispro 100 UNIT/ML 3 ML VIAL SUBCUT ×2 (08:37→08:38)
[2023-05-23] MEDS: risperiDONE 1 MG TABLET PO (08:39)
[2023-05-23] MEDS: Metoprolol Tartrate 25 MG TABLET PO (08:40)
[2023-05-23] MEDS: Aspirin 81 MG TAB.CHEW PO (08:40)
[2023-05-23] MEDS: Folic Acid 1 MG TABLET PO (08:40)
[2023-05-23] MEDS: hydroCHLOROthiazide 12.5 MG TABLET PO (08:40)
[2023-05-23] MEDS: Thiamine HCL 100 MG TABLET PO (08:40)
[2023-05-23] MEDS: lisinopriL 10 MG TABLET PO (08:40)
[2023-05-23] MEDS: clonazePAM 0.5 MG TABLET PO (08:40)
[2023-05-23] MEDS: Gabapentin 400 MG CAPSULE PO (08:41)
[2023-05-23 11:09] LABS: Glucose, Whole Blood 88 mg/dL (60-115)
--- NOTE | 2023-05-23 13:49 | PC.NURSE ---
Pt alert, oriented. Was aware of discharge and reported readiness for discharge. D/C instructions, medications, appointments given to patient. Donna verbalized understanding D/C instructions. Pt discharged with belongings. Left the unit at 13:10, transferred via [employer].
== END 2023-05-23 13:10 | disposition home or self-care (01) | DRG 885 ==
LOC: HO.ED 15:40 → HO.PGERI 05-09 12:08
PROVIDERS: Physician Assistant Medical; Psychiatry & Neurology Psychiatry; Student in an Organized Health Care Education/Training Program; Admitting Provider Social Worker; Emergency Provider Emergency Medicine; Visit Provider Psychiatry & Neurology Psychiatry
DX: F25.9 Schizoaffective disorder, unspecified (principal); R45.851 Suicidal ideations; I10 Essential (primary) hypertension; K21.9 Gastro-esophageal reflux disease without esophagitis; F10.90 Alcohol use, unspecified, uncomplicated; E11.42 Type 2 diabetes mellitus with diabetic polyneuropathy; F14.10 Cocaine abuse, uncomplicated; R45.850 Homicidal ideations; Z59.819 Housing instability, housed unspecified; Z87.891 Personal history of nicotine dependence; Z20.822 Contact with and (suspected) exposure to COVID-19; Z79.4 Long term (current) use of insulin; Z79.82 Long term (current) use of aspirin; Z79.899 Other long term (current) drug therapy
CPT/HCPCS: 36415; 73600; 80048; 80053; 80061; 80143; 80179; 80307; 81003; 82947; 85025; 87635; 93005; 99285; S9485

== ENCOUNTER → 2023-05-09 08:40 | Outpatient (BNV) | payer OTHER, SELFPAY | PROVIDERS: Admitting Provider Social Worker; Emergency Provider Emergency Medicine; Visit Provider Internal Medicine | DX: I49.3 Ventricular premature depolarization (principal) | CPT/HCPCS: 93010 ==

== ENCOUNTER → 2023-05-09 12:03 | Outpatient (BNV) | payer OTHER, SELFPAY | PROVIDERS: Admitting Provider Social Worker; Emergency Provider Emergency Medicine; Visit Provider Psychiatry & Neurology Psychiatry | DX: F39 Unspecified mood [affective] disorder (principal); R45.851 Suicidal ideations; F10.90 Alcohol use, unspecified, uncomplicated; F14.10 Cocaine abuse, uncomplicated | CPT/HCPCS: 99231 ==

== ENCOUNTER → 2023-05-09 12:03 | Outpatient (BNV) | payer OTHER, SELFPAY | PROVIDERS: Admitting Provider Social Worker; Emergency Provider Emergency Medicine; Visit Provider Psychiatry & Neurology Psychiatry | DX: F39 Unspecified mood [affective] disorder (principal); R45.851 Suicidal ideations; F14.10 Cocaine abuse, uncomplicated; F10.90 Alcohol use, unspecified, uncomplicated | CPT/HCPCS: 90792; 99231; 99238 ==

== ENCOUNTER 2023-06-05 20:23 | Emergency (ER) | payer OTHER, SELFPAY ==
[2023-06-05 20:30] VITALS: BP 107/62; BP 97/53; PULSE 102; PULSE 110; RESP 16; TEMP 36.6; O2SAT 97; BMI 35.8
--- NOTE | 2023-06-05 20:37 | ECG_ITS ---
Test Reason : dizziness Blood Pressure : / mmHG Vent. Rate : 103 BPM Atrial Rate : 103 BPM P-R Int : 206 ms QRS Dur : 090 ms QT Int : 354 ms P-R-T Axes : 047 -08 014 degrees QTc Int : 463 ms Sinus tachycardia Inferior infarct , age undetermined Cannot rule out Anterior infarct , age undetermined Abnormal ECG When compared with ECG of 09-MAY-2023 08:40, Premature supraventricular complexes are no longer Present Minimal criteria for Anterior infarct are now Present Referred By: Generic ED Physician Electronically Signed By:SOO LANCASTER
[2023-06-05 20:42] VITALS: BP 113/62; PULSE 103; RESP 18; O2SAT 94
[2023-06-05 20:51] LABS: Glucose, Whole Blood 143 mg/dL (60-115)
--- NOTE | 2023-06-05 22:17 | ED.GENADULT ---
HPI - General Adult General Chief complaint: General Medical Stated complaint: bp 90/53, pulled over from dizziness Time Seen by Provider: 06/05/23 22:14 Source: patient Mode of arrival: EMS Limitations: no limitations History of Present Illness HPI narrative: Patient diabetic supposed to be on lantus insulin was admitted here on 05/08/2023 for depression and suicidal ideation discharged on 05/23/2023 patient lost her insulin and glucometer since it was told and has not taken any insulin since then since yesterday patient has been having diarrhea watery multiple times with nausea today while driving prior to arrival felt lightheaded and dizzy EMS noted the blood pressure 88/40 received 500 cc of normal saline blood pressure now 97/53 POC was 143 Related Data Previous Rx's ?Medication ?Instructions ?Recorded acetaminophen 325 mg tablet 650 mg (2 x 325 mg) PO Q6H PRN 05/22/23 Headache/Pain Mild Scale (1-3) 30 days #60 tabs albuterol sulfate 90 mcg/actuation 1 inh inhalation QID PRN wheezing 05/22/23 aerosol inhaler #6.7 grams aspirin 81 mg chewable tablet 81 mg PO DAILY #30 tabs 05/22/23 atorvastatin 40 mg tablet 40 mg PO BEDTIME 30 days #30 tabs 05/22/23 clonazepam 0.5 mg tablet 0.5 mg PO BID #60 tabs 05/22/23 diclofenac sodium 1 % topical gel 4 g topical QID PRN pain 30 days 05/22/23 #5 grams folic acid 1 mg tablet 1 mg PO DAILY #30 tabs 05/22/23 gabapentin 400 mg capsule 400 mg PO TID #90 caps 05/22/23 guaifenesin 100 mg/5 mL oral liquid 100 mg (5 mL) PO Q4H PRN Cough 30 05/22/23 days #60 mL hydrochlorothiazide 12.5 mg tablet 12.5 mg PO DAILY 30 days #30 tabs 05/22/23 hydroxyzine HCl 25 mg tablet 25 mg PO Q6H PRN Anxiety 30 days 05/22/23 #60 tabs insulin glargine 100 unit/mL (3 15 unit (0.15 mL) subcut DAILY #3 05/22/23 mL) subcutaneous pen mL insulin lispro 100 unit/mL 5 unit (0.05 mL) subcut QIDACHS 05/22/23 subcutaneous solution (Admelog #10 mL U-100 Insulin lispro) insulin lispro 100 unit/mL See Protocol subcut QIDACHS #10 mL 05/22/23 subcutaneous solution (Admelog U-100 Insulin lispro) lisinopril 10 mg tablet 10 mg PO DAILY #30 tabs 05/22/23 melatonin 3 mg tablet 6 mg (2 x 3 mg) PO BEDTIME PRN 05/22/23 Insomnia #60 tabs metoprolol tartrate 25 mg tablet 25 mg PO DAILY #30 tabs 05/22/23 nicotine (polacrilex) 2 mg gum 2 mg buccal Q2H PRN Nicotine 05/22/23 Cravings 30 days #90 ea omeprazole 40 mg capsule,delayed 40 mg PO DAILY@0630 #30 caps 05/22/23 release risperidone 1 mg tablet 1 mg PO BID #30 tabs 05/22/23 thiamine mononitrate (vit B1) 100 100 mg PO DAILY 30 days #30 tabs 05/22/23 mg tablet trazodone 50 mg tablet 50 mg PO BEDTIME PRN Insomnia 30 05/22/23 days #60 tabs loperamide 2 mg tablet (Imodium 2 mg PO Q6H PRN loose stool #14 06/06/23 A-D) tabs Allergies Allergy/AdvReac Type Severity Reaction Status Date / Time bee pollen Allergy Anaphylaxis Verified 06/05/23 20:36 Review of Systems Review of Systems: Yes all other systems are reviewed and are negative [facility] Past Medical History Medical History Vertigo Diabetes HTN (hypertension) GERD (gastroesophageal reflux disease) Social History Social History Household Members: None Housing: Other Housing Other:: Hotel Do you presently have visiting nurse or other home services: Yes Alcohol intake: former Patient Tobacco Use Status: Former Tobacco user Quit Date: 8 months ago Smoked in Last 30 Days: No Use of substances other than those prescribed or required for medical reasons: No Advance Directives: No Advance Directives Information Provided: No Patient : No service: No Sexual orientation: Straight/Heterosexual Physical Exam ED Vital Signs: Vital Signs - 24 hr 06/05/23 20:30 06/05/23 20:42 06/05/23 22:50 Temperature 97.8 F 98.2 F Pulse Rate 102 H 103 H 107 H Respiratory Rate 16 18 16 Blood Pressure 107/62 113/62 117/60 Pulse Oximetry 97 94 98 Oxygen Delivery Method Room Air Room Air Room Air 06/06/23 01:53 06/06/23 03:46 06/06/23 03:47 Temperature 97.6 F Pulse Rate 109 H 106 H 116 H Respiratory Rate 20 Blood Pressure 128/67 116/65 118/78 Pulse Oximetry 97 Oxygen Delivery Method Room Air 06/06/23 03:48 06/06/23 05:27 Temperature 97.5 F Pulse Rate 115 H 102 H Respiratory Rate 18 Blood Pressure 113/56 L 136/76 Pulse Oximetry 99 Oxygen Delivery Method Room Air BMI result Body Mass Index 35.8 Appearance: Alert. Oriented X3. No acute distress. Eyes: No pallor or icterus ENT: Pharynx normal. Oral Mucosa moist Neck: Normal inspection. Neck supple. CVS: Normal heart rate and rhythm. Pulses normal. Respiratory: No respiratory distress. Equal air entry bilateral, no wheezing/rales/rhonchi Abdomen: Soft and nontender. Bowel sounds are present, no mass palpable, no CVA tenderness Skin: Skin warm and dry. Normal skin color. Normal skin turgor. Extremities: No lower extremity edema. No calf tenderness Neuro: Oriented X 3. No motor deficit. No sensory deficit.No cerebellar signs , cranial nerves II-XII intact Medications Administered Discontinued Medications Generic Name Dose Route Start Last Admin Trade Name Freq PRN Reason Stop Dose Admin Acetaminophen 650 mg 06/06/23 03:31 06/06/23 03:50 Acetaminophen 325 Mg Tablet PO 06/06/23 03:32 650 mg ONCE ONE Administration Sodium Chloride 1,000 mls @ 999 mls/hr 06/05/23 22:27 06/06/23 00:36 Ns IV 06/05/23 23:27 Infused .Q1H1M ONE Infusion Sodium Chloride 1,000 mls @ 999 mls/hr 06/05/23 23:41 06/06/23 01:56 Ns IV 06/06/23 00:41 Infused .Q1H1M ONE Infusion Potassium Chloride 10 meq in 100 mls @ 100 mls/hr 06/05/23 23:41 06/06/23 01:11 Potassium Chloride/H20 IV 06/06/23 00:40 Infused ONCE ONE Infusion Ondansetron HCl 4 mg 06/05/23 22:27 06/05/23 22:42 Ondansetron Hcl 4 Mg/2 Ml Vial IVPUSH 06/05/23 22:28 4 mg ONCE ONE Administration Potassium Bicarbonate 25 meq 06/05/23 23:41 06/06/23 00:11 Potassium Bicarbonate/Cit Ac 25 Meq Tablet.Eff PO 06/05/23 23:42 25 meq ONCE ONE Administration Medical Decision Making Medical Decision Making [facility] Narrative: Patient has acute diarrhea with volume loss with vasovagal near-syncope with transient hypotension felt better potassium was 3.1 was replaced no bowel movement in the ER patient feeling much better now will discharge patient home advised to drink plenty of fluids take Imodium as needed for severe diarrhea , patient received 2 L of IV fluids, no orthostatic hypotension Differential Diagnosis Differential Diagnoses: The differential diagnosis associated with the presentation includes Gastroenteritis/enteritis/hypovolemia/cardiac arrhythmia Admission/Observation Consideration of admission/observation: Escalation of care including admission/observation considered Lab Data [facility] Lab Attestation statement: I reviewed the patient's lab results. 06/05/23 23:00 06/05/23 22:59 Labs: Lab Results 06/05/23 06/05/23 06/05/23 Range/Units 20:47 22:59 23:00 WBC 10.5 (4.8-10.8) X10*3/uL RBC 3.60 L (4.20-5.50) X10*6/uL Hgb 10.8 L (12.0-16.0) g/dl Hct 30.8 L (37.0-47.0) % MCV 85.6 (80.0-98.0) fL MCH 30.0 (27.0-33.0) pg MCHC 35.1 H (31.0-35.0) g/dl RDW 13.6 (11.0-16.0) % Plt Count 416 H (160-400) X10*3/uL MPV 8.1 L (9.4-12.3) fL Immature Gran % (Auto) 0.3 (0.0-0.4) % Neut % (Auto) 47.1 (45-73) % Lymph % (Auto) 43.6 H (20-40) % Coal % (Auto) 5.8 (2-11) % Eos % (Auto) 2.8 (0-4) % Baso % (Auto) 0.4 (0-2) % Lymph # (Auto) 4.6 (1.2-4.9) X10*3/uL Coal # (Auto) 0.6 (0.1-1.2) X10*3/uL Eos # (Auto) 0.3 (0.0-0.4) X10*3/uL Baso # (Auto) 0.0 (0.0-0.2) X10*3/uL Abs Immat Gran (auto) 0.03 (0.00-0.03) X10*3/uL Absolute Neuts (auto) 4.9 (2.0-8.3) x10*3/uL Absolute Nucleated RBC 0.000 (0.0-0.012) X10*3/uL Nucleated RBC % (auto) 0.0 (0.0-0.2) /100WBC Sodium 131 L (135-145) mmol/L Potassium 3.1 L D (3.3-5.1) mmol/L Chloride 101 (96-108) mmol/L Carbon Dioxide 19 L (22-29) mmol/L Anion Gap 14 (12-20) BUN 15 (9-16) mg/dL Creatinine 0.67 (0.5-1.4) mg/dL Estim Creat Clear Calc 92.1 Estimated GFR > 60 POC Glucose 143 H (60-115) mg/dL Random Glucose 137 H (60-115) mg/dL Calcium 8.9 D (8.4-10.2) mg/dL Magnesium 1.6 (1.6-2.6) mg/dL Total Bilirubin 0.2 (0.0-1.0) mg/dL AST 27 (5-31) U/L ALT 39 H (0-31) U/L Alkaline Phosphatase 80 (39-117) U/L Total Protein 6.7 (6.5-8.0) g/dL Albumin 3.6 (3.5-5.0) g/dL Urine Color Yellow Urine Appearance Clear Urine pH 5.5 (5.0-9.0) Ur Specific [place] 1.020 (1.005-1.025) Urine Protein Negative (Neg-Trace) mg/dL Urine Glucose (UA) Negative (Negative) mg/dL Urine Ketones Negative (Negative) mg/dL Urine Blood Negative (Negative) Urine Nitrite Negative (Negative) Ur Leukocyte Esterase Negative (Negative) Independent Interpretation I performed an independent interpretation of an: EKG Interpretation: Sinus tachycardia with heart rate of 105 beats per minute poor progression of R-wave no acute ST T wave changes no significant change from the previous EKG Discharge Plan Discharge Clinical Impression: Vasovagal near-syncope, Diarrhea Patient Disposition: Home, Self-Care Instructions: Acute Diarrhea (ED), Near Syncope (ED) Additional Instructions: Drink plenty of fluids Imodium for severe diarrhea Follow with your PCP if not better Prescriptions: New loperamide [Imodium A-D] 2 mg tablet 2 mg PO Q6H PRN (Reason: loose stool) Qty: 14 0RF No Action acetaminophen 325 mg Tablet 650 mg PO Q6H PRN (Reason: Headache/Pain Mild Scale (1-3)) 30 Days Qty: 60 0RF trazodone 50 mg Tablet 50 mg PO BEDTIME PRN (Reason: Insomnia) 30 Days Qty: 60 0RF nicotine (polacrilex) 2 mg Gum 2 mg buccal Q2H PRN (Reason: Nicotine Cravings) 30 Days Qty: 90 0RF guaifenesin 100 mg/5 mL Liquid 100 mg PO Q4H PRN (Reason: Cough) 30 Days Qty: 60 0RF hydroxyzine HCl 25 mg Tablet 25 mg PO Q6H PRN (Reason: Anxiety) 30 Days Qty: 60 0RF hydrochlorothiazide 12.5 mg Tablet 12.5 mg PO DAILY 30 Days Qty: 30 0RF Protocol: Hold for SBP< HOLD for SBP < : 90 thiamine mononitrate (vit B1) 100 mg Tablet 100 mg PO DAILY 30 Days Qty: 30 0RF atorvastatin 40 mg Tablet 40 mg PO BEDTIME 30 Days Qty: 30 0RF clonazepam 0.5 mg Tablet 0.5 mg PO BID Qty: 60 0RF gabapentin 400 mg Capsule 400 mg PO TID Qty: 90 0RF melatonin 3 mg Tablet 6 mg PO BEDTIME PRN (Reason: Insomnia) Qty: 60 0RF omeprazole 40 mg Capsule,Delayed Release(Dr/Ec) 40 mg PO DAILY@0630 Qty: 30 0RF lisinopril 10 mg Tablet 10 mg PO DAILY Qty: 30 0RF Protocol: Hold for SBP< HOLD for SBP < : 90 aspirin 81 mg Tablet,Chewable 81 mg PO DAILY Qty: 30 0RF folic acid 1 mg Tablet 1 mg PO DAILY Qty: 30 0RF insulin lispro [Admelog U-100 Insulin lispro] 100 unit/mL Solution See Protocol subcut QIDACHS Qty: 10 0RF Protocol: Insulin Correction Scale Less than or equal to 110 ---- Give (units): 0 111 to 150 Give (units): 0 151 to 200 Give (units): 2 201 to 250 Give (units): 4 251 to 300 Give (units): 6 301 to 350 Give (units): 8 Greater than 350 Give (units): 10 Call MD if Blood Glucose > : 350 insulin lispro [Admelog U-100 Insulin lispro] 100 unit/mL Solution 5 unit subcut QIDACHS Qty: 10 0RF albuterol sulfate 90 mcg/actuation HFA aerosol inhaler 1 inh inhalation QID PRN (Reason: wheezing) Qty: 6.7 0RF risperidone 1 mg Tablet 1 mg PO BID Qty: 30 0RF metoprolol tartrate 25 mg Tablet 25 mg PO DAILY Qty: 30 0RF Protocol: Hold for SBP/HR < HOLD for SBP < : 90 HOLD for HR < : 60 insulin glargine 100 unit/mL (3 mL) insulin pen 15 unit subcut DAILY Qty: 3 0RF diclofenac sodium 1 % gel 4 g topical QID PRN (Reason: pain) 30 Days Qty: 5 0RF Print Language: Wallisian
--- NOTE | 2023-06-05 22:27 | ECG_ITS ---
Test Reason : hypotension Blood Pressure : / mmHG Vent. Rate : 105 BPM Atrial Rate : 105 BPM P-R Int : 208 ms QRS Dur : 094 ms QT Int : 356 ms P-R-T Axes : 048 -06 017 degrees QTc Int : 470 ms Sinus tachycardia Inferior infarct (cited on or before 05-JUN-2023) Cannot rule out Anterior infarct (cited on or before 05-JUN-2023) Abnormal ECG When compared with ECG of 05-JUN-2023 20:36, No significant change was found Referred By: Jaiden Wild Electronically Signed By:SOO LANCASTER
[2023-06-05] MEDS: 0.9 % Sodium Chloride 1,000 ML 999 ML IV (22:42)
[2023-06-05] MEDS: ondansetron HCL 4 MG/2 ML VIAL IVPUSH (22:42)
[2023-06-05 22:50] VITALS: BP 117/60; PULSE 107; RESP 16; TEMP 36.8; O2SAT 98
[2023-06-05 23:08] LABS: MANUAL DIFF FLAG NO
[2023-06-05 23:13] LABS: Basophils Percent Auto 0.4 % (0-2); Eosinophils Absolute Auto 0.3 X10*3/uL (0.0-0.4); Eosinophils Percent Auto 2.8 % (0-4); Hematocrit 30.8 % (37.0-47.0); Hemoglobin 10.8 g/dl (12.0-16.0); Imm Gran Abs Auto 0.03 X10*3/uL (0.00-0.03); Imm Gran Pct Auto 0.3 % (0.0-0.4); Lymphocytes Absolute Auto 4.6 X10*3/uL (1.2-4.9); Lymphocytes Percent Auto 43.6 % (20-40); Mean Corpuscular HGB Conc 35.1 g/dl (31.0-35.0); Mean Corpuscular Volume 85.6 fL (80.0-98.0); Mean Platelet Volume 8.1 fL (9.4-12.3); Monocytes Absolute Auto 0.6 X10*3/uL (0.1-1.2); Monocytes Percent Auto 5.8 % (2-11); Neutrophils Absolute Auto 4.9 x10*3/uL (2.0-8.3); Neutrophils Percent Auto 47.1 % (45-73); Platelet Count 416 X10*3/uL (160-400); Red Cell Distribution Width 13.6 % (11.0-16.0); White Blood Count 10.5 X10*3/uL (4.8-10.8)
[2023-06-05 23:14] LABS: Appearance Urine Clear; Color Urine Yellow; Glucose Urine UA Negative (Negative); Leukocyte Esterase Urine Negative (Negative); Nitrite Urine Negative (Negative); PH 5.5 (5.0-9.0); Urine Blood Negative (Negative); Urine Ketones Negative (Negative); Urine Protein Negative (Neg-Trace)
[2023-06-05 23:22] LABS: Alanine Aminotransferase 39 U/L (0-31); Albumin Level 3.6 g/dL (3.5-5.0); Alkaline Phosphatase 80 U/L (39-117); Anion Gap 14 (12-20); Aspartate Amino Transferase 27 U/L (5-31); Bilirubin Total 0.2 mg/dL (0.0-1.0); Blood Urea Nitrogen 15 mg/dL (9-16); Calcium 8.9 mg/dL (8.4-10.2); Carbon Dioxide 19 mmol/L (22-29); Chloride 101 mmol/L (96-108); Creatinine Clr Calc Pharmacy 92.1; Estimated Glomerular Filt Rate > 60; Glucose Random 137 mg/dL (60-115); Magnesium 1.6 mg/dL (1.6-2.6); Potassium 3.1 mmol/L (3.3-5.1); Sodium 131 mmol/L (135-145); Total Protein 6.7 g/dL (6.5-8.0)
[2023-06-06] MEDS: Potassium Chloride/H20 10 MEQ/100 ML PIGGYBACK 100 MEQ IV (00:11)
[2023-06-06] MEDS: Potassium Bicarbonate/Cit AC 25 MEQ TABLET.EFF PO (00:11)
[2023-06-06] MEDS: 0.9 % Sodium Chloride 1,000 ML 999 ML IV (00:55)
[2023-06-06 01:53] VITALS: BP 128/67; PULSE 109; RESP 20; TEMP 36.4; O2SAT 97
[2023-06-06 03:46] VITALS: BP 116/65; PULSE 106
[2023-06-06 03:47] VITALS: BP 118/78; PULSE 116
[2023-06-06 03:48] VITALS: BP 113/56; PULSE 115
[2023-06-06] MEDS: Acetaminophen 325 MG TABLET 650 MG PO (03:50)
[2023-06-06 05:27] VITALS: BP 136/76; PULSE 102; RESP 18; TEMP 36.4; O2SAT 99
[2023-06-06] MEDS: Gabapentin 400 MG CAPSULE PO (07:23)
[2023-06-06 07:24] VITALS: BP 132/73; PULSE 108; RESP 16; TEMP 36.6
--- NOTE | 2023-06-06 08:32 | PC.NURSE ---
assumed care of pt at 0700. pt a&o x4, calm, and cooperative. SEBAS Padilla attempted to discharge pt before getting off shift. pt does not have ride home. t/w called pt's daughter from chart. no answer. left message.
== END 2023-06-06 11:26 | disposition home or self-care (01) ==
PROVIDERS: Emergency Provider Internal Medicine
DX: R55 Syncope and collapse (principal); R19.7 Diarrhea, unspecified; I95.9 Hypotension, unspecified; E11.9 Type 2 diabetes mellitus without complications; I10 Essential (primary) hypertension
CPT/HCPCS: 36415; 80053; 81003; 82947; 83735; 85025; 93005; 96361; 96365; 96374; 99285; J2405; J3480

== ENCOUNTER → 2023-06-05 20:37 | Outpatient (BNV) | payer OTHER, SELFPAY | PROVIDERS: Emergency Provider Internal Medicine; Visit Provider Internal Medicine | DX: R94.31 Abnormal electrocardiogram [ECG] [EKG] (principal) | CPT/HCPCS: 93010 ==

== ENCOUNTER 2023-07-22 21:21 | Emergency (ER) | payer OTHER, SELFPAY ==
[2023-07-22 21:31] VITALS: BP 90/52; PULSE 110; RESP 17; TEMP 36.8; O2SAT 98
[2023-07-22 21:50] VITALS: BP 90/52; BP 92/46; PULSE 110; PULSE 118; RESP 17; TEMP 36.8; O2SAT 96; O2SAT 98; BMI 32.3
[2023-07-22 22:21] LABS: MANUAL DIFF FLAG NO
[2023-07-22 22:27] LABS: Basophils Absolute Auto 0.1 X10*3/uL (0.0-0.2); Basophils Percent Auto 0.6 % (0-2); Eosinophils Absolute Auto 0.1 X10*3/uL (0.0-0.4); Eosinophils Percent Auto 0.9 % (0-4); Hematocrit 33.9 % (37.0-47.0); Hemoglobin 11.5 g/dl (12.0-16.0); Imm Gran Abs Auto 0.03 X10*3/uL (0.00-0.03); Imm Gran Pct Auto 0.3 % (0.0-0.4); Lymphocytes Absolute Auto 4.9 X10*3/uL (1.2-4.9); Lymphocytes Percent Auto 46.7 % (20-40); Mean Corpuscular HGB Conc 33.9 g/dl (31.0-35.0); Mean Corpuscular Hemoglobin 29.6 pg (27.0-33.0); Mean Corpuscular Volume 87.4 fL (80.0-98.0); Mean Platelet Volume 8.1 fL (9.4-12.3); Monocytes Absolute Auto 0.6 X10*3/uL (0.1-1.2); Neutrophils Absolute Auto 4.8 x10*3/uL (2.0-8.3); Neutrophils Percent Auto 45.5 % (45-73); Platelet Count 376 X10*3/uL (160-400); Red Blood Count 3.88 X10*6/uL (4.20-5.50); Red Cell Distribution Width 14.2 % (11.0-16.0); White Blood Count 10.5 X10*3/uL (4.8-10.8)
[2023-07-22 22:37] LABS: Alanine Aminotransferase 19 U/L (0-31); Albumin Level 3.5 g/dL (3.5-5.0); Alkaline Phosphatase 67 U/L (39-117); Anion Gap 18 (12-20); Aspartate Amino Transferase 12 U/L (5-31); Bilirubin Total 0.1 mg/dL (0.0-1.0); Blood Urea Nitrogen 11 mg/dL (9-16); Calcium 8.9 mg/dL (8.4-10.2); Carbon Dioxide 17 mmol/L (22-29); Chloride 109 mmol/L (96-108); Creatinine Clr Calc Pharmacy 87.3; Estimated Glomerular Filt Rate > 60; Ethanol 151 mg/dL; Glucose Random 174 mg/dL (60-115); Potassium 3.6 mmol/L (3.3-5.1); Sodium 140 mmol/L (135-145); Total Protein 6.2 g/dL (6.5-8.0)
[2023-07-23 01:29] VITALS: BP 123/67; PULSE 91; RESP 15; TEMP 36.5; O2SAT 96
[2023-07-23 01:50] LABS: Appearance Urine Clear; Color Urine Yellow; Glucose Urine UA 250 mg/dL (Negative); Leukocyte Esterase Urine Negative (Negative); Nitrite Urine Negative (Negative); PH 5.5 (5.0-9.0); Specific Gravity - Urine 1.015 (1.005-1.025); Urine Blood Negative (Negative); Urine Ketones Negative (Negative); Urine Protein Negative (Neg-Trace)
[2023-07-23 02:00] LABS: Amphetamine Screen Urine Not Detected (Not Detect); Barbiturates, Urine Not Detected (Not Detect); Benzodiazepines Screen Urine Not Detected (Not Detect); Buprenorphine Scr Not Detected (Not Detect); Cannabinoid Screen Urine Not Detected (Not Detect); Cocaine Screen Urine Not Detected (Not Detect); Fentanyl, urine Not Detected (Not Detect); Methadone Screen, Urine Not Detected (Not Detect); Opiate Screen Urine Not Detected (Not Detect); Oxycodone Screen Urine Not Detected (Not Detect); Phencyclidine Screen Urine Not Detected (Not Detect)
[2023-07-23] MEDS: Ibuprofen 400 MG TABLET PO (03:33)
[2023-07-23] MEDS: Gabapentin 400 MG CAPSULE PO (03:34)
[2023-07-23 05:51] VITALS: BP 120/84; PULSE 98; RESP 17; TEMP 36.2; O2SAT 97
[2023-07-23 06:58] LABS: Glucose, Whole Blood 130 mg/dL (60-115)
[2023-07-23 07:32] VITALS: BP 156/88; PULSE 94; RESP 16; TEMP 36.8; O2SAT 98
--- NOTE | 2023-07-23 09:10 | ED_ITS ---
HPI - Alcohol General Chief Complaint: ETOH/Substance Use Stated Complaint: ETOH possible dehydration/UTI, found altered by PD Time Seen by Provider: 07/23/23 08:42 Source: patient and EMS Mode of arrival: EMS Limitations: no limitations History of Present Illness ED Provider: DR. Bettencourt HPI narrative: 57-year-old female found by [place] police [employer] in her car unresponsive, on EMS arrival patient was awake and alert, patient admitted to drinking alcohol last night with her friend. Patient now is awake, alert, oriented x3 able to answer all questions, has no complaint at this time. Patient was seen at [facility] last week for abdominal pain as per patient reported had CT of the abdomen pelvis which was unremarkable. No headache, no CP, no SOB, no abdominal pain, no nausea, no vomiting. Patient would like to call her daughter to come and pick her up and take her home. Related Data Previous Rx's ?Medication ?Instructions ?Recorded acetaminophen 325 mg tablet 650 mg (2 x 325 mg) PO Q6H PRN 05/22/23 Headache/Pain Mild Scale (1-3) 30 days #60 tabs albuterol sulfate 90 mcg/actuation 1 inh inhalation QID PRN wheezing 05/22/23 aerosol inhaler #6.7 grams aspirin 81 mg chewable tablet 81 mg PO DAILY #30 tabs 05/22/23 atorvastatin 40 mg tablet 40 mg PO BEDTIME 30 days #30 tabs 05/22/23 clonazepam 0.5 mg tablet 0.5 mg PO BID #60 tabs 05/22/23 diclofenac sodium 1 % topical gel 4 g topical QID PRN pain 30 days 05/22/23 #5 grams folic acid 1 mg tablet 1 mg PO DAILY #30 tabs 05/22/23 gabapentin 400 mg capsule 400 mg PO TID #90 caps 05/22/23 guaifenesin 100 mg/5 mL oral liquid 100 mg (5 mL) PO Q4H PRN Cough 30 05/22/23 days #60 mL hydrochlorothiazide 12.5 mg tablet 12.5 mg PO DAILY 30 days #30 tabs 05/22/23 hydroxyzine HCl 25 mg tablet 25 mg PO Q6H PRN Anxiety 30 days 05/22/23 #60 tabs insulin glargine 100 unit/mL (3 15 unit (0.15 mL) subcut DAILY #3 05/22/23 mL) subcutaneous pen mL insulin lispro 100 unit/mL 5 unit (0.05 mL) subcut QIDACHS 05/22/23 subcutaneous solution (Admelog #10 mL U-100 Insulin lispro) insulin lispro 100 unit/mL See Protocol subcut QIDACHS #10 mL 05/22/23 subcutaneous solution (Admelog U-100 Insulin lispro) lisinopril 10 mg tablet 10 mg PO DAILY #30 tabs 05/22/23 melatonin 3 mg tablet 6 mg (2 x 3 mg) PO BEDTIME PRN 05/22/23 Insomnia #60 tabs metoprolol tartrate 25 mg tablet 25 mg PO DAILY #30 tabs 05/22/23 nicotine (polacrilex) 2 mg gum 2 mg buccal Q2H PRN Nicotine 05/22/23 Cravings 30 days #90 ea omeprazole 40 mg capsule,delayed 40 mg PO DAILY@0630 #30 caps 05/22/23 release risperidone 1 mg tablet 1 mg PO BID #30 tabs 05/22/23 thiamine mononitrate (vit B1) 100 100 mg PO DAILY 30 days #30 tabs 05/22/23 mg tablet trazodone 50 mg tablet 50 mg PO BEDTIME PRN Insomnia 30 05/22/23 days #60 tabs loperamide 2 mg tablet (Imodium 2 mg PO Q6H PRN loose stool #14 06/06/23 A-D) tabs Allergies Allergy/AdvReac Type Severity Reaction Status Date / Time bee pollen Allergy Anaphylaxis Verified 07/22/23 22:00 Review of Systems 2 Review of Systems: All other systems are reviewed and are negative Constitutional: Reports as per HPI and Reports no additional constitutional complaints Eyes: Reports as per HPI and Reports no additional eye complaints Reports system reviewed and no additional complaints, except as documented Cardiovascular: Reports as per HPI and Reports no additional cardiovascular complaints Respiratory: Reports as per HPI and Reports no additional respiratory complaints Gastrointestinal: Reports as per HPI and Reports no additional gastrointestinal complaints Genitourinary: Reports no additional female genitourinary complaints Musculoskeletal: Reports no additional musculoskeletal complaints Skin/Breast: Reports system reviewed and no additional complaints, except as docu Psychiatric: Reports no additional psychiatric complaints Endocrine: Reports no additional endocrine complaints Hematologic/Lymphatic: Reports no additional hematologic/lymphatic complaints Allergic/Immunologic: Reports no additional allergic/immunologic complaints Reports system reviewed and no additional complaints, except as documented and Reports Abnormal speech present [facility] Past Medical History Medical History Vertigo Diabetes HTN (hypertension) GERD (gastroesophageal reflux disease) Social History Social History Household Members: None Housing: Other Housing Other:: Hotel Do you presently have visiting nurse or other home services: Yes Alcohol intake: current Alcohol intake frequency: 3 or more drinks per day Patient Tobacco Use Status: Former Tobacco user Smoked in Last 30 Days: Yes Use of substances other than those prescribed or required for medical reasons: No Advance Directives: Yes Advance Directives Information Provided: No Advance Directives on File: No Do you have a plan to hurt others: No Plan Patient : No service: No Sexual orientation: Straight/Heterosexual Physical Exam ED Vital Signs: Vital Signs - 24 hr 07/22/23 21:31 07/22/23 21:50 07/23/23 01:29 Temperature 98.2 F 98.2 F 97.7 F Pulse Rate 110 H 110 H 91 Respiratory Rate 17 17 15 Blood Pressure 90/52 L 90/52 L 123/67 Pulse Oximetry 98 98 96 Oxygen Delivery Method Room Air Room Air Room Air 07/23/23 05:51 07/23/23 07:32 Temperature 97.2 F 98.3 F Pulse Rate 98 94 Respiratory Rate 17 16 Blood Pressure 120/84 156/88 H Pulse Oximetry 97 98 Oxygen Delivery Method Room Air Room Air BMI result Body Mass Index 32.3 Vital signs have been reviewed and appear to be correct. Blood pressure elevated. Heart rate normal. Respiratory rate normal. Temperature normal. Oxygen saturation normal. Appearance: Alert. Oriented X3. No acute distress. Head: Normal external exam. Normocephalic. Atraumatic. No Mcgarry signs noted. No raccoon eyes noted Eyes: PERRLA. EOMI. Conjunctiva and sclera normal. Eyelids normal. ENT: TM's Normal. Pharynx normal. Uvula midline. Moist mucous membranes. No trismus noted. No drooling noted. No muffled voice noted. Neck: Normal inspection. Neck supple. FROM. No adenopathy. Thyroid Normal. No meningeal signs. No neck mass noted. CVS: Normal heart rate and rhythm. Heart sound normal. No murmurs noted. Pulses normal throughout. Respiratory: No respiratory distress. Painless inspiration. Breath sounds normal. No wheezes/rales/rhonchi noted. Chest nontender. No accessory muscle usage noted or decreased air movement noted. Abdomen: Soft and nontender. Bowel sounds normal in all 4 quadrants. No distention noted. No organomegaly noted. No visible injury noted. Back: No CVA tenderness. Full range of motion noted. Skin: Skin warm and dry. Normal skin color. Normal skin turgor. No rashes/lesions/lacerations noted. Extremities: No lower extremity edema. Extremities exhibit normal range of motion. Extremities nontender. Neuro: Oriented X 3. Cranial nerve exam: II-XII are grossly intact No motor deficit. No sensory deficit. Reflexes normal. Course Reevaluation(s) Reevaluation #1: Brought to the hospital after alcohol intoxication, patient now is sober, patient has no complaint now, no SI, no HI, no hallucination. Patient tolerated p.o. intake, calling daughter to pick her up home. Time: 09:15 Medical Decision Making Differential Diagnosis Differential Diagnoses: The differential diagnosis associated with the presentation includes ( Alcohol intoxication, severe anemia, electrolyte derangement, UTI.) Admission/Observation Consideration of admission/observation: Escalation of care including admission/observation considered Lab Data MDM Lab Attestation statement: I reviewed the patient's lab results. 07/22/23 22:16 07/22/23 22:16 Labs: Lab Results 07/22/23 07/23/23 07/23/23 Range/Units 22:16 01:44 06:55 WBC 10.5 (4.8-10.8) X10*3/uL RBC 3.88 L (4.20-5.50) X10*6/uL Hgb 11.5 L (12.0-16.0) g/dl Hct 33.9 L (37.0-47.0) % MCV 87.4 (80.0-98.0) fL MCH 29.6 (27.0-33.0) pg MCHC 33.9 (31.0-35.0) g/dl RDW 14.2 (11.0-16.0) % Plt Count 376 (160-400) X10*3/uL MPV 8.1 L (9.4-12.3) fL Immature Gran % (Auto) 0.3 (0.0-0.4) % Neut % (Auto) 45.5 (45-73) % Lymph % (Auto) 46.7 H (20-40) % [place] % (Auto) 6.0 (2-11) % Eos % (Auto) 0.9 (0-4) % Baso % (Auto) 0.6 (0-2) % Lymph # (Auto) 4.9 (1.2-4.9) X10*3/uL [place] # (Auto) 0.6 (0.1-1.2) X10*3/uL Eos # (Auto) 0.1 (0.0-0.4) X10*3/uL Baso # (Auto) 0.1 (0.0-0.2) X10*3/uL Abs Immat Gran (auto) 0.03 (0.00-0.03) X10*3/uL Absolute Neuts (auto) 4.8 (2.0-8.3) x10*3/uL Absolute Nucleated RBC 0.000 (0.0-0.012) X10*3/uL Nucleated RBC % (auto) 0.0 (0.0-0.2) /100WBC Sodium 140 (135-145) mmol/L Potassium 3.6 (3.3-5.1) mmol/L Chloride 109 H (96-108) mmol/L Carbon Dioxide 17 L (22-29) mmol/L Anion Gap 18 (12-20) BUN 11 (9-16) mg/dL Creatinine 0.67 (0.5-1.4) mg/dL Estim Creat Clear Calc 87.3 Estimated GFR > 60 POC Glucose 130 H (60-115) mg/dL Random Glucose 174 H (60-115) mg/dL Calcium 8.9 (8.4-10.2) mg/dL Total Bilirubin 0.1 (0.0-1.0) mg/dL AST 12 (5-31) U/L ALT 19 (0-31) U/L Alkaline Phosphatase 67 (39-117) U/L Total Protein 6.2 L (6.5-8.0) g/dL Albumin 3.5 (3.5-5.0) g/dL Urine Color Yellow Urine Appearance Clear Urine pH 5.5 (5.0-9.0) Ur Specific [place] 1.015 (1.005-1.025) Urine Protein Negative (Neg-Trace) mg/dL Urine Glucose (UA) 250 H (Negative) mg/dL Urine Ketones Negative (Negative) mg/dL Urine Blood Negative (Negative) Urine Nitrite Negative (Negative) Ur Leukocyte Esterase Negative (Negative) Urine Opiates Screen Not Detected (Not Detect) Ur Buprenorphine Scrn Not Detected (Not Detect) ng/mL Ur Oxycodone Screen Not Detected (Not Detect) ng/mL Urine Methadone Screen Not Detected (Not Detect) ng/mL Urine Fentanyl Screen Not Detected (Not Detect) Ur Barbiturates Screen Not Detected (Not Detect) Ur Phencyclidine Scrn Not Detected (Not Detect) Ur Amphetamines Screen Not Detected (Not Detect) U Benzodiazepines Scrn Not Detected (Not Detect) Urine Cocaine Screen Not Detected (Not Detect) U Marijuana (THC) Screen Not Detected (Not Detect) Ethyl Alcohol 151 mg/dL Medications Administered Discontinued Medications Generic Name Dose Route Start Last Admin Trade Name Freq PRN Reason Stop Dose Admin Gabapentin 400 mg 07/23/23 01:37 07/23/23 03:34 Gabapentin 400 Mg Capsule PO 07/23/23 01:38 400 mg ONCE ONE Administration Ibuprofen 400 mg 07/23/23 01:37 07/23/23 03:33 Ibuprofen 400 Mg Tablet PO 07/23/23 01:38 400 mg ONCE STA Administration Discharge Plan Discharge Clinical Impression: Alcoholic intoxication Patient Disposition: Home, Self-Care Instructions: Alcohol Intoxication (ED) Prescriptions: No Action acetaminophen 325 mg Tablet 650 mg PO Q6H PRN (Reason: Headache/Pain Mild Scale (1-3)) 30 Days Qty: 60 0RF trazodone 50 mg Tablet 50 mg PO BEDTIME PRN (Reason: Insomnia) 30 Days Qty: 60 0RF nicotine (polacrilex) 2 mg Gum 2 mg buccal Q2H PRN (Reason: Nicotine Cravings) 30 Days Qty: 90 0RF guaifenesin 100 mg/5 mL Liquid 100 mg PO Q4H PRN (Reason: Cough) 30 Days Qty: 60 0RF hydroxyzine HCl 25 mg Tablet 25 mg PO Q6H PRN (Reason: Anxiety) 30 Days Qty: 60 0RF hydrochlorothiazide 12.5 mg Tablet 12.5 mg PO DAILY 30 Days Qty: 30 0RF Protocol: Hold for SBP< HOLD for SBP < : 90 thiamine mononitrate (vit B1) 100 mg Tablet 100 mg PO DAILY 30 Days Qty: 30 0RF atorvastatin 40 mg Tablet 40 mg PO BEDTIME 30 Days Qty: 30 0RF clonazepam 0.5 mg Tablet 0.5 mg PO BID Qty: 60 0RF gabapentin 400 mg Capsule 400 mg PO TID Qty: 90 0RF melatonin 3 mg Tablet 6 mg PO BEDTIME PRN (Reason: Insomnia) Qty: 60 0RF omeprazole 40 mg Capsule,Delayed Release(Dr/Ec) 40 mg PO DAILY@0630 Qty: 30 0RF lisinopril 10 mg Tablet 10 mg PO DAILY Qty: 30 0RF Protocol: Hold for SBP< HOLD for SBP < : 90 aspirin 81 mg Tablet,Chewable 81 mg PO DAILY Qty: 30 0RF folic acid 1 mg Tablet 1 mg PO DAILY Qty: 30 0RF insulin lispro [Admelog U-100 Insulin lispro] 100 unit/mL Solution See Protocol subcut QIDACHS Qty: 10 0RF Protocol: Insulin Correction Scale Less than or equal to 110 ---- Give (units): 0 111 to 150 Give (units): 0 151 to 200 Give (units): 2 201 to 250 Give (units): 4 251 to 300 Give (units): 6 301 to 350 Give (units): 8 Greater than 350 Give (units): 10 Call MD if Blood Glucose > : 350 insulin lispro [Admelog U-100 Insulin lispro] 100 unit/mL Solution 5 unit subcut QIDACHS Qty: 10 0RF albuterol sulfate 90 mcg/actuation HFA aerosol inhaler 1 inh inhalation QID PRN (Reason: wheezing) Qty: 6.7 0RF risperidone 1 mg Tablet 1 mg PO BID Qty: 30 0RF metoprolol tartrate 25 mg Tablet 25 mg PO DAILY Qty: 30 0RF Protocol: Hold for SBP/HR < HOLD for SBP < : 90 HOLD for HR < : 60 insulin glargine 100 unit/mL (3 mL) insulin pen 15 unit subcut DAILY Qty: 3 0RF diclofenac sodium 1 % gel 4 g topical QID PRN (Reason: pain) 30 Days Qty: 5 0RF loperamide [Imodium A-D] 2 mg tablet 2 mg PO Q6H PRN (Reason: loose stool) Qty: 14 0RF Print Language: Indonesian
[2023-07-23 10:37] VITALS: BP 156/88; PULSE 94; RESP 16; TEMP 36.8; O2SAT 98
--- OUTSIDE RECORDS SUMMARY | 2023-07-28 08:51 | XMS_ITS | Continuity of Care Document ---
Author Organization [facility] ter Address [address] [place] [id number]- Care Team Providers Care Bundle Breaker Name Role Phone Spencer Ramiers Primary Care Physician Encounter [facility] ACCT R [id number] Date(s): 07/15/23 - 07/15/[address] [address]- Encounter Diagnosis Encounter for social work intervention(Final) - 07/15/23 Discharge Disposition: A-D/C Home Attending Physician: Jackelin Bey MD Admitting Physician: Jackelin Bey MD Referring Physician: Not on Staff, Referring [...] oral tablet 5 mg, By Mouth, Daily, # 30 tablet, Refills 0, Tot. Refills 0, Maintenance, 07/04/23 10:06:00 EDT, Route to Pharmacy Electronically, [facility], Partial fill upon patient request if theprescription is for a schedule II opioid drug., 153... Start Date: 07/04/23 Status: Ordered atorvastatin 40 mg oral tablet 1 tablet = 40 mg, By Mouth, Daily, # 30 tablet, 0 Refills, Maintenance, 07/04/23 10:08:00 EDT, Tablet, [facility], Partial fill upon patient request if the prescription is for a schedule II opioid drug., 153, cm, 07/04/23 7:54:00 EDT, He... Start Date: 07/04/23 Status: Ordered folic acid 1 mg oral tablet 1 mg, 1, tablet, By Mouth, Daily, TAKE 1 TABLET BY MOUTH DAILY, # 30 tablet, Refills 0, Tot. Refills 0, Maintenance, 07/04/23 10:08:00 EDT, Route to Pharmacy Electronically, [facility],Partial fill upon patient request if the prescripti... Start Date: 07/04/23 Status: Ordered glimepiride 1 mg oral tablet 1 tablet = 1 mg, By Mouth, Daily, With breakfast, # 30 tablet, 0 Refills, Maintenance, 07/04/23 10:09:00 EDT, Tablet, [facility], Partial fill upon patient request if the prescription is for a schedule II opioid drug., 153, cm, 07/04/23... Start Date: 07/04/23 Status: Ordered insulin glargine 100 units/mL subcutaneous solution = 5 units, Subcutaneous Injection, Daily in AM, # 10 mL, 0 Refills, Maintenance, 07/04/23 10:08:00 EDT, Solution, [facility], Partial fill upon patient request if the prescription is for a schedule II opioid drug., 153, cm, 07/04/23 7:54... Start Date: 07/04/23 Status: Ordered Insulin Syringe, BD Ultra-Fine 0.3 cc 31 G x 8 mm (5/16in) See Instructions, # 30 each, Refills 0, Tot. Refills 0, Maintenance, use as directed for Type 2 Diabetes Mellitus, 07/04/23 10:05:00 EDT, Supply, 153, cm, 07/04/23 7:54:00 EDT, Height, 77, kg, 07/02/23 9:44:00 EDT, Dry Weight Start Date: 07/04/23 Stop Date: 08/03/23 Status: Ordered lisinopril 10 mg oral tablet 10 mg, 1, tablet, By Mouth, Daily, # 30 tablet, Refills 0, Tot. Refills 0, Maintenance, 07/04/23 10:09:00 EDT, Route to Pharmacy Electronically, [facility], Partial fill upon patient request if the prescription is for a schedule II opioi... Start Date: 07/04/23 Status: Ordered meclizine 12.5 mg oral tablet 1 tablet = 12.5 mg, By Mouth, 3 times a day, PRN for dizziness, # 30 tablet, 0 Refills, Maintenance, 07/02/23 15:06:00 EDT, Tablet, Partial fill upon patient request if the prescription is for a schedule II opioid drug. Start Date: 07/02/23 Status: Ordered meclizine 25 mg oral tablet 1 tablet = 25 mg, By Mouth, 3 times a day, PRN for dizziness, # 20 tablet, 0 Refills, Maintenance, 07/14/23 11:32:00 EDT, Tablet, [id number], Partial fill upon patient request if theprescription is for a schedule II opioid drug., 153... Start Date: 07/14/23 Status: Ordered Melatonin 5 mg oral tablet 1 tablet = 5 mg, By Mouth, Daily at bedtime, PRN for insomnia, # 30 tablet, 3 Refills, Maintenance,10/07/15 10:34:27, Tablet Start Date: 10/07/15 Status: Ordered omeprazole 40 mg oral enteric coated capsule 1 capsule = 40 mg, By Mouth, Daily, # 30 capsule, 0 Refills, Maintenance, 07/04/23 10:09:00 EDT, ECCapsule, [facility], 153, cm, 07/04/23 7:54:00 EDT, Height, 77, kg, 07/02/23 9:44:00 EDT, Dry Weight Start Date: 07/04/23 Status: Ordered ondansetron 4 mg oral tablet See Instructions, PRN as needed for nausea/vomiting, 1-2 tablet By Mouth Every 8 hours, # 10 tablet, 0 Refills, Maintenance, 08/18/17 22:26:46 EDT, Tablet Start Date: 08/18/17 Status: Ordered One Touch Fine Point Lancets See Instructions, # 100 each, Refills 0, Tot. Refills 0, Maintenance, use as directed for Type 2 Diabetes Mellitus, 07/04/23 10:05:00 EDT, Supply, 153, cm, 07/04/23 7:54:00 EDT, Height, 77, kg, 07/02/23 9:44:00 EDT, Dry Weight Start Date: 07/04/23 Stop Date: 08/03/23 Status: Ordered One Touch Ultra 2 Glucose Meter See Instructions, # 1 each, Refills 0, Tot. Refills 0, Maintenance, use as directed for Type 2 Diabetes Mellitus, 07/04/23 10:05:00 EDT, Supply, 153, cm, 07/04/23 7:54:00 EDT, Height, 77, kg, 07/02/23 9:44:00 EDT, Dry Weight Start Date: 07/04/23 Stop Date: 08/03/23 Status: Ordered One Touch Ultra Test Strips See Instructions, # 100 each, Refills 0, Tot. Refills 0, Maintenance, use as directed for Type 2 Diabetes Mellitus, 07/04/23 10:05:00 EDT, Supply, 153, cm, 07/04/23 7:54:00 EDT, Height, 77, kg, 07/02/23 9:44:00 EDT, Dry Weight Start Date: 07/04/23 Stop Date: 08/03/23 Status: Ordered pregabalin 100 mg oral capsule 1 capsule = 100 mg, By Mouth, 2 times a day, # 60 capsule, 0 Refills, Maintenance, 07/04/23 10:09:00 EDT, Capsule, [facility], Partial fill upon patient request if the prescription is for a schedule II opioid drug., 153, cm, 07/04/23 7:5... Start Date: 07/04/23 Status: Ordered ProAir HFA 90 mcg/inh inhalation aerosol with adapter 2 puffs, Inhalation, 4 times a day, PRN for wheezing, # 8.5 Gm, 0 Refills, Maintenance, Aerosol Start Date: 11/08/12 Status: Ordered thiamine 100 mg oral tablet 100 mg, By Mouth, 2 times a day, Refills 0, Maintenance, 01/11/23 15:35:00 EST, Partial fill upon patient request if the prescription is for a schedule II opioid drug. Start Date: 01/11/23 Status: Ordered Problem List Condition Confirmation Course Effective Dates Status H ealth Status Informant Anxiety Confirmed Active Anxiety disorder Confirmed Active Chronic chest pain Confirmed Active Obese class I Confirmed Active Panic disorder without agoraphobia with severe panic attacks Confirmed Active 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 Confirmed Active Vital Signs Most recent to oldest [Reference Range]: 1 2 3 4 Height 156 cm (07/15/23 5:50 PM) 156 cm (07/15/23 2:22 PM) 156 cm (07/15/23 2:17 PM) Weight 80 kg (07/15/23 5:50 PM) 80 kg (07/15/23 2:22 PM) 80 kg (07/15/23 2:17 PM) Oxygen Saturation [94-100 %] 99 % (07/15/23 10:21 PM) 100 % (07/15/23 5:50 PM) 99 % (07/15/23 2:17 PM) 100 % (07/15/23 2:17 PM) Pulse Rate [55-90 bpm] 88 bpm (07/15/23 10:21 PM) 82 bpm (07/15/23 5:50 PM) 99 bpm *H* (07/15/23 2:17 PM) 88 bpm (07/15/23 2:17 PM) Body Mass Index [18.5-24.99 kg/m2] 32.87 kg/m2 *>HHI* (07/15/23 5:50 PM) 32.87 kg/m2 *>HHI* (07/15/23 2:17 PM) Blood Pressure [90-138/55-84 mm Hg] 142/86mm Hg *H* (07/15/23 10:21 PM) 168/78mm Hg *H* (07/15/23 5:50 PM) 138/98mm Hg (07/15/23 2:17 PM) Respiratory Rate [16-30 br/min] 16 br/min (07/15/23 10:21 PM) 18 br/min (07/15/23 5:50 PM) 16 br/min (07/15/23 2:17 PM) 18 br/min (07/15/23 2:17 PM) Temperature [96.8-100.4 DegF] 97.7 DegF (07/15/23 10:21 PM) 97.4 DegF (07/15/23 5:50 PM) 97.8 DegF (07/15/23 2:17 PM) Mode of Delivery (Oxygen) Room air (07/15/23 10:21 PM) Room air (07/15/23 5:50 PM) Room air (07/15/23 2:17 PM) Room air (07/15/23 2:17 PM) Blood pressure sites Arm, left (07/15/23 10:21 PM) Arm, left (07/15/23 5:50 PM) Arm, right (07/15/23 2:17 PM) Temperature Route Oral (07/15/23 10:21 PM) Oral (07/15/23 5:50 PM) Oral (07/15/23 2:17 PM) Dry Weight 80 kg (07/15/23 5:50 PM) 80 kg (07/15/23 2:22 PM) 80 kg (07/15/23 2:17 PM) Weight Obtained Via Patient/family stated (07/15/23 2:17 PM) Dry Weight Obtained Via Patient/family stated (07/15/23 2:17 PM) Social History Social History Type Response Tobacco Other: pt quit 4mo a go. Sex Female Patient Care team information Care Team Personnel Name: Spencer Ramires Position: Reference Physician Member Role: PCP Address: Address: [address] [place] [address] Name: Rocio Vasquez RN Position: [facility] RN Member Role: Primary Care Nurse Name: Annette Loera RN Position: [facility] RN Member Role: Primary Care Nurse Name: Loretta Wright RN Position: [facility] RN Member Role: Primary Care Nurse Name: Ann Parham MA Position: [facility] Office Staff Member Role: Primary Care Nurse Name: Layne Montelongo MA Position: [facility] Office Staff Member Role: Primary Care Nurse Name: Angie Vidal RN Position: [facility] RN Member Role: Primary Care Nurse Name: Roshni Lantigua RN Position: [facility] RN Member Role: Primary Care Nurse Name: Safia Umanzor Position: [facility] Outreach Member Role: Lifetime Consulting Physician Name: Samara Gooden MA Position: [facility] Outreach Member Role: Lifetime Consulting Physician Care Team Related Persons Name: MITA HAMPTON Address: [address] [address]
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
--- OUTSIDE RECORDS SUMMARY | 2023-07-28 08:51 | XMS_ITS | Continuity of Care Document ---
Author Organization [facility] ter Address [address] [place] [id number] Care Team Providers Care Clinical Support Tech Name Role Phone Spencer Ramires Primary Care Physician Encounter [facility] Date(s): 07/02/23 - 07/04/[address] [id number] Encounter Diagnosis Hyperglycemia due to diabetes mellitus(Final) - 07/02/23 Pancreatitis(Final) - 07/02/23 Dizziness(Final) - 07/02/23 Tachycardia(Final) - 07/02/23 Discharge Disposition: A-D/C Home Attending Physician: Sera Feldman MD Admitting Physician: Braeden TRUJILLO, Urbano Marmolejo Referring Physician: Not on Staff, Referring MD [...] , Mild, Temperature Greater than 100.5, Routine, 07/02/23 8:18:00 EDT Start Date: 07/02/23 Stop Date: 07/04/23 Status: Discontinued amLODIPine 5 mg oral tablet 5 mg, By Mouth, Daily, # 30 tablet, Refills 0, Tot. Refills 0, Maintenance, 07/04/23 10:06:00 EDT, Route to Pharmacy Electronically, [facility], Partial fill upon patient request if theprescription is for a schedule II opioid drug., 153... Start Date: 07/04/23 Status: Ordered atorvastatin 40 mg oral tablet 1 tablet = 40 mg, By Mouth, Daily, # 30 tablet, 0 Refills, Maintenance, 07/04/23 10:08:00 EDT, Tablet, [facility], Partial fill upon patient [...] 07/04/23 10:08:00 EDT, Route to Pharmacy Electronically, [facility],Partial fill upon patient request if the prescripti... Start Date: 07/04/23 Status: Ordered glimepiride 1 mg oral tablet 1 tablet = 1 mg, By Mouth, Daily, With breakfast, # 30 tablet, 0 Refills, Maintenance, 07/04/23 10:09:00 EDT, Tablet, [facility], Partial fill upon patient request if the prescription is for a schedule II opioid drug., 153, cm, 07/04/23... Start Date: 07/04/23 Status: Ordered insulin glargine 100 units/mL subcutaneous solution = 5 units, Subcutaneous Injection, Daily in AM, # 10 mL, 0 Refills, Maintenance, 07/04/23 10:08:00 EDT, Solution, [facility], Partial fill upon patient request if [...] 07/04/23 10:09:00 EDT, Route to Pharmacy Electronically, [facility], Partial fill upon patient [...] opioid drug. Start Date: 07/02/23 Status: Ordered Melatonin 5 mg oral tablet 1 tablet = 5 mg, By Mouth, Daily at bedtime, PRN for insomnia, # 30 tablet, 3 Refills, Maintenance,10/07/15 10:34:27, Tablet Start Date: 10/07/15 Status: Ordered omeprazole 40 mg oral enteric coated capsule 1 capsule = 40 mg, By Mouth, Daily, # 30 capsule, 0 Refills, Maintenance, 07/04/23 10:09:00 EDT, ECCapsule, [facility], 153, cm, 07/04/23 7:54:00 [...] 0 Refills, Maintenance, 07/04/23 10:09:00 EDT, Capsule, [facility], Partial fill upon patient request if [...] Exam Date Time Procedure Performing Provider Status 07/02/23 4:[address] Angio Neck Anette Mcpherson (Verified) Notes: (CT Angio Neck) Reason For Exam: Aneurysm, neck vessel(s);Other: RESULT: CT Angio Neck CT Angio Head, CT Angio Neck Hx of Present Illness: reports no insulin x 1 month, does not check sugars, diarrhea, trouble walking; Reason: Other:; Neuro deficit, acute, stroke suspected; Clinical Question(s): Other:; Hematoma Aneurysm / Other: [...] exposure parameters. RADIATION DOSE PARAMETERS: CTDIvol Body: 9.80 mGy, DLP Body: 438 mGy*cm. COMPARISON: Noncontrast CT head performed concurrently. FINDINGS: CTA OF THE NECK: Arch: There is a two vessel aortic arch, with common origin of the brachiocephalic artery and left common carotid artery. There is mild atherosclerotic plaque of the aortic arch, but origins of the supra aortic vessels are patent. Right carotid system: The common carotid and cervical internal carotid arteries are mildly degradedby motion but patent. There is calcified atherosclerotic plaque at the carotid bifurcation, but no ICA stenosis (0%) by NASCET criteria. There is no dissection or aneurysm. Left carotid system: The common carotid and cervical internal carotid arteries are patent. There iscalcified atherosclerotic plaque at the carotid bifurcation, resulting in mild ICA stenosis (25%) by NASCET criteria. There is no dissection or aneurysm. There is a mildly right-dominant vertebral artery system. Right vertebral: No significant stenosis. No evidence of dissection or aneurysm. Left vertebral: No significant stenosis. No evidence of dissection or aneurysm. Other: Soft tissues and bones: No evidence of lymphadenopathy or mass. The thyroid is unremarkable. Examination is mildly degraded by motion. Several is areas of groundglass opacity may reflect atelectasis on this expiratory examination. Multilevel degenerative changes of the spine are noted, without acute osseous abnormality. CTA OF THE HEAD: Anterior circulation: Bilateral intracranial ICAs demonstrate atherosclerotic calcification, with mild narrowing of the cavernous ICAs at the anterior genu on each side.. Bilateral BAO and MCA branches are patent. There is no high-grade stenosis, proximal cutoff, aneurysm, or vascular malformation. Posterior circulation: Bilateral intracranial vertebral arteries, the basilar artery, and bilateralsuperior cerebellar and posterior cerebral branches are patent. There is predominantly supplyto the left MEETING FACILITATOR with hypoplastic left P1 segment. There is no significant stenosis, proximal cutoff, aneurysm, or vascular malformation. Veins: Major dural venous sinuses are patent. Other: Soft tissues and bones: No midline shift or effacement of the basal cisterns. No space-occupying hemorrhage. No territorial loss of hernandez-white matter differentiation. A subtle focus of dural-based enhancement and calcification overlying the right frontal convexity is compatible with a small meningioma, measuring 9 x 5 mm. There is no mass effect or subjacent parenchymal edema. Orbits are unremarkable. There is partial opacification of several right mastoid air cells. Remaining nasal sinuses and mastoids are clear. Multiple dental caries and periapical lucencies are present. IMPRESSION: 1. No proximal occlusion or high grade stenosis in the major arteries of the head and neck. 2. Mild narrowing of the right proximal cervical ICA (25% by NASCET criteria), as well as mild narrowing of the intracranial ICAs on each side. Major findings are in agreement with the preliminary report provided by [facility]. WSN: [id number] Ordering Physician: Sarahy Thibodeaux Dictated By: Lorena Nicole MD Dictated Date/Time: 07/02/23 11:00 a Reviewed By: Lorena Nicole MD Signed By: Lorena Nicole MD Signed Date/Time: 07/02/23 11:00 am Transcribed By: DANITA Transcribed Date/Time: 07/02/23 10:52 am * Exam Date Time Procedure Performing Provider Status 07/02/23 4:[address] Angio Head Anette Mcpherson ; Auth (Verified) Notes: (CT Angio Head) Reason For Exam: Neuro deficit, acute, stroke suspected;Other: RESULT: CT Angio Head CT Angio Head, CT Angio Neck Hx of Present Illness: reports no insulin x 1 month, does not check sugars, diarrhea, trouble walking; Reason: Other:; Neuro deficit, acute, stroke suspected; Clinical Question(s): Other:; Hematoma Aneurysm / Other: [...] exposure parameters. RADIATION DOSE PARAMETERS: CTDIvol Body: 9.80 mGy, DLP Body: 438 mGy*cm. COMPARISON: Noncontrast CT head performed concurrently. FINDINGS: CTA OF THE NECK: Arch: There is a two vessel aortic arch, with common origin of the brachiocephalic artery and left common carotid artery. There is mild atherosclerotic plaque of the aortic arch, but origins of the supra aortic vessels are patent. Right carotid system: The common carotid and cervical internal carotid arteries are mildly degradedby motion but patent. There is calcified atherosclerotic plaque at the carotid bifurcation, but no ICA stenosis (0%) by NASCET criteria. There is no dissection or aneurysm. Left carotid system: The common carotid and cervical internal carotid arteries are patent. There iscalcified atherosclerotic plaque at the carotid bifurcation, resulting in mild ICA stenosis (25%) by NASCET criteria. There is no dissection or aneurysm. There is a mildly right-dominant vertebral artery system. Right vertebral: No significant stenosis. No evidence of dissection or aneurysm. Left vertebral: No significant stenosis. No evidence of dissection or aneurysm. Other: Soft tissues and bones: No evidence of lymphadenopathy or mass. The thyroid is unremarkable. Examination is mildly degraded by motion. Several is areas of groundglass opacity may reflect atelectasis on this expiratory examination. Multilevel degenerative changes of the spine are noted, without acute osseous abnormality. CTA OF THE HEAD: Anterior circulation: Bilateral intracranial ICAs demonstrate atherosclerotic calcification, with mild narrowing of the cavernous ICAs at the anterior genu on each side.. Bilateral BAO and MCA branches are patent. There is no high-grade stenosis, proximal cutoff, aneurysm, or vascular malformation. Posterior circulation: Bilateral intracranial vertebral arteries, the basilar artery, and bilateralsuperior cerebellar and posterior cerebral branches are patent. There is predominantly supplyto the left MEETING FACILITATOR with hypoplastic left P1 segment. There is no significant stenosis, proximal cutoff, aneurysm, or vascular malformation. Veins: Major dural venous sinuses are patent. Other: Soft tissues and bones: No midline shift or effacement of the basal cisterns. No space-occupying hemorrhage. No territorial loss of hernandez-white matter differentiation. A subtle focus of dural-based enhancement and calcification overlying the right frontal convexity is compatible with a small meningioma, measuring 9 x 5 mm. There is no mass effect or subjacent parenchymal edema. Orbits are unremarkable. There is partial opacification of several right mastoid air cells. Remaining nasal sinuses and mastoids are clear. Multiple dental caries and periapical lucencies are present. IMPRESSION: 1. No proximal occlusion or high grade stenosis in the major arteries of the head and neck. 2. Mild narrowing of the right proximal cervical ICA (25% by NASCET criteria), as well as mild narrowing of the intracranial ICAs on each side. Major findings are in agreement with the preliminary report provided by [facility]. WSN: [id number] Ordering Physician: Sarahy Thibodeaux Dictated By: Lorena Nicole MD Dictated Date/Time: 07/02/23 11:00 a Reviewed By: Lorena Nicole MD Signed By: Lorena Nicole MD Signed Date/Time: 07/02/23 11:00 am Transcribed By: DANITA Transcribed Date/Time: 07/02/23 10:52 am * Exam Date Time Procedure Performing Provider Status 07/02/23 4:[address] Head/Brain W/O Contrast Anette Kohler; Auth (Verified) Notes: (CT Head/Brain W/O Contrast) Reason For Exam: Neuro deficit, acute, stroke suspected;Other: RESULT: CT Head/Brain W/O Contrast CT Head/Brain W/O Contrast INDICATION: Neuro deficit, acute, stroke suspected; Clinical Question(s): Hematoma Infarction TECHNIQUE: Noncontrast head CT using axial technique and reconstructed in axial, sagittal and coronal planes. Iterative reconstruction techniques are used to optimize dose and image quality. CTDIvol Head: 48.00 mGy, DLP Head: 773 mGy*cm. COMPARISON: 01/03/2023 FINDINGS: Hr Assistant view findings, lines and tubes: None. 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 No parenchymal hemorrhage, midline shift, or mass effect. Hernandez-white matter differentiation is wellpreserved. No acute infarct. Negative insular ribbon sign. Atherosclerotic vascular calcification of the carotid arteries but negative hyperdense vessel sign. Ventricles, sulci, and basilar cisterns are normal. No white matter lesions. No subarachnoid hemorrhage. No subdural or epidural collection. CALVARIUM, SKULL BASE, AND SOFT TISSUES: No fractures or suspicious bony lesions. Opacification of 2 right ethmoid air cells but otherwise clear paranasal sinuses and mastoid air cells. Visualized orbits and globes are intact. The extracranial soft tissues are unremarkable. IMPRESSION: No acute intracranial pathology. I have personally reviewed the images and I agree with this report. WSN: [id number] Ordering Physician: Sarahy Thibodeaux Dictated By: Aggie Mclaughlin DO Dictated Date/Time: 07/02/23 6:23 am Reviewed By: Declan Rojas MD Signed By: Declan Rojas MD Signed Date/Time: 07/02/23 6:28 am Transcribed By: DANITA Transcribed Date/Time: 07/02/23 4:28 am Vital Signs Most recent to oldest [Reference Range]: 1 2 3 Height 153 cm (07/04/23 12:01 PM) 153 cm (07/04/23 7:54 AM) 153 cm (07/04/23 3:45 AM) Weight 81.6 kg (07/02/23 9:05 AM) 77 kg (07/02/23 3:02 AM) 77 kg (07/02/23 2:18 AM) Oxygen Saturation [94-100 %] 100 % (07/04/23 12:01 PM) 100 % (07/04/23 7:54 AM) 100 % (07/04/23 3:45 AM) Pulse Rate [55-90 bpm] 108 bpm *H* (07/04/23 12:01 PM) 89 bpm (07/04/23 7:54 AM) 81 bpm (07/04/23 3:45 AM) Body Mass Index [18.5-24.99 kg/m2] 34.86 kg/m2 *>HHI* (07/02/23 9:05 AM) 32.89 kg/m2 *>HHI* (07/02/23 2:18 AM) Blood Pressure [90-138/55-84 mm Hg] 138/93mm Hg (07/04/23 12:01 PM) 152/82mm Hg *H* (07/04/23 7:54 AM) 149/73mm Hg *H* (07/04/23 3:45 AM) Respiratory Rate [16-30 br/min] 18 br/min (07/04/23 12:01 PM) 18 br/min (07/04/23 9:07 AM) 20 br/min (07/04/23 7:54 AM) Temperature [96.8-100.4 DegF] 97.3 DegF (07/04/23 12:01 PM) 97.2 DegF (07/04/23 7:54 AM) 97.8 DegF (07/04/23 3:45 AM) Mode of Delivery (Oxygen) Room air (07/04/23 12:01 PM) Room air (07/04/23 7:54 AM) Room air (07/04/23 3:45 AM) Blood pressure sites Arm, left (07/04/23 12:01 PM) Arm, right (07/04/23 7:54 AM) Arm, left (07/04/23 3:45 AM) Temperature Route Oral (07/04/23 12:01 PM) Oral (07/04/23 7:54 AM) Oral (07/04/23 3:45 AM) Dry Weight 77 kg (07/02/23 9:05 AM) 77 kg (07/02/23 3:02 AM) 77 kg (07/02/23 2:18 AM) Weight Obtained Via Bed scale (07/02/23 9:05 AM) Standing scale (07/02/23 2:18 AM) Dry Weight Obtained Via Standing scale (07/02/23 2:18 AM) Social History Social History Type Response Tobacco Other: pt quit 4mo a go. Sex Admission evaluation note * Irma Andres MD: MODIFY Irma Andres MD: MODIFY, MODIFY, MODIFY Event Display: Admission Note Authored Date: Patient: ??DONNA HAMPTON ? Age:??57 Years?Sex:??Female?:??1965?? History of Present Illness Donna Mcghee is a 57-year-old female with a past medical history diabetes, diabetic neuropathy, GERD, vertigo and hyperlipidemia who had presented to [facility] in the setting of dizziness and blurred vision.?? History is obtained both from the patient patient's chart.?? Patient notes that she has been in and out of the hospital??since February 2023. ??In January 2023 her mother had ??colorectal cancer.?? She was at that time living with her mother??and has since then been on her own.?? She has been living in a motel in [place].?? [facility]due to dizziness, pain due to her??diabetic neuropathy??and issues with her??hypergly cemia.?? She notes that she goes to the hospital she was treated with insulin, but never has any??at home??because it is not prescribed to her.?? She continues to mention that there is a nurse involved in her care??who walks her medication??in a box and has the trujillo.?? She has previously been on??metformin but due to complications with diarrhea??she had to come off metformin.?? She is now currently on insulin, and has been noted??weight loss.?? Patient notes that her presentation??to the hospital was in the setting of continuous??dizziness. ??She notes that her vertigo in the past had been intermittent.?? She also noted gait instability.?? Patient denies any headaches, chest pain, shortness of breath or fevers.?? Patient has also noted abdominal pain, nausea and vomiting.?? [facility] patient was found to be hemodynamically stable and afebrile.?? Patient's labs showed a WBC count of 9.9 with a stable H/H of 13.3/39.8.?? Chemistry panel notable for a lipase of 206 and blood glucose levels ranging between 200s-341.?? Patient also had an elevated anion gap of 20 and a bicarbof 16.?? UA showed no ketones in the urine, but positive glucose.?? Patient subsequently underwent a CT head/brain without contrast which showed no acute intracranial pathology.?? CT angio head and neck showed no proximal occlusion or high-grade stenosis in the major arteries of the head or neck.?? Patient was found to be tachycardic likely in setting of dehydration from her bouts of hypoglycemia.?? Her dizziness had improved but her tachycardia had not.?? Patient did have access to insulin so she was admitted for hyperglycemia, dehydration and tachycardia. ?? Patient was seen at the bedside.?? Her main concern at this time is her diabetic neuropathy.?? She is also noting that her dizziness is back, but now it is worse with ambulation.?? She denies any other issues at this time. Review of Systems A complete review of systems has been performed??and determined to be negative unless otherwise noted above in the patient's??HPI. Physical Exam Vitals & Measurements T:??98.2?F?? TMIN:??97.7?F?? TMAX:??98.2?F?? HR:??109??(Peripheral)?? RR:??18?? BP:??130/67?? SpO2:??98%?? WT:??81.6??kg?? Constitutional: Alert, in no distress. Mental Status: A and O x4 Head: Normocephalic. Eyes: Extraocular muscles intact. Ear, Nose and Throat: Moist mucous membranes. Respiratory: Clear to auscultation. RRR Cardiovascular: S1 S2 regular. No murmurs. Gastrointestinal: Abdomen soft, non-tender, non-distended. Neurologic: No focal neurological deficits. Skin: No rashes.?? Musculoskeletal: No gross deformities. No REJI. Assessment/Plan 57-year-old female with a past medical history diabetes, diabetic neuropathy, GERD, vertigo and hyperlipidemia who had presented to [facility] in the setting of dizziness and blurred vision. ?? Insulin Dependent Diabetes Mellitus Diabetic Neuropathy Patient has been diagnosed with diabetes now for 2 years. She is on insulin - previously it appears that she had tried metformin and Trulicity. Patient presented with dizziness in the setting of hyperglycemia. Patient is on Lantus 15 units at bedtime w/ ISS Plan: - POC TID before meals - Insulin with Lantus and ISS - Lantus decreased to 10 units at bedtime given changes in diet likely by being inpatient. - Insulin sliding scale going from 2-12 units - Hypoglycemic measures. - Pregabalin 100 mg BID - PRN morphine??1 mg??IV given severe pain currently - pt knows this is temporary for comfort. ?? Dizziness Hx of Vertigo Patient presented with dizziness/light headed with ambulation. Negative CT + CTA head and neck Prior MRI done in 12/2022 with similar presentation - negative Differential: Likely vertigo given changes in dizziness with movement of the head and worsening with ambulation.??CT and prior MRI for same presentation ruled out a malignancy vs stoke as cause of symptoms.?? Patient is hyperglycemic and so unlikely to be in the setting of hypoglycemia.?? We could consider it laverne in the setting of medications (like furosemide although less likely given she hasn't been takingit). Plan: - Trial meclizine 12.5 mg TID PRN for dizziness - cardiac monitor technician - Monitor symptoms -??Obtain orthostatic??vitals ?? Chronic Medical Conditions: Hypertension: Continue amlodipine 5 mg and lisinopril 10 mg PO QD.??Will need to obtain a complete med rec. Insomnia: Continue melatonin.?? Mention of patient being on trazodone.?? Will obtain a complete medrec. Hyperlipidemia: Continue atorvastatin COPD: ProAir albuterol 2 puffs for wheezing. GERD: Pantoprazole 40 mg PO QD ?? [facility]?? She is unable to provide adequatemed history.?? Will need full med rec done when pharmacies are open. ?? Quality Metrics: Code Status: Full Code Diet: Diabetic diet DVT PPx: Enoxaparin 40 ?? (The above document was created using [employer] voice recognition software. As such, radio operator errors may occur. Please contact the provider for additional questions and if clarification is needed.) ?? Darek Chen, DO PGY-5 Hospital Medicine [facility] Pager: [phone] [email or web address] ?? Attestation: Patient??was seen and discussed with the attending,??Dr. Irma Andres. ?? The patient seen and examined on 07/02/23. The case discussed in detail with admitting fellow on this day. I reviewed and agree as above. Dvt, high risk. Irma Andres MD Problem List/Past Medical History Ongoing Anxiety Anxiety disorder Chronic chest pain Obese class I Panic disorder without agoraphobia with severe panic attacks 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 Procedure/Surgical History ???Laparoscopic cholecystectomy (05/10/2017) Medications Inpatient Acetaminophen Tablet, 650 mg, By Mouth, Every 4 hours, PRN albuterol CFC free 90 mcg/inh inhalation aerosol, 180 mcg= 2 puffs, Inhalation, Every 4 hours, PRN amLODIPine 5 mg oral tablet, 5 mg, By Mouth, Daily atorvastatin 40 mg oral tablet, 40 mg, By Mouth, Daily Docusate Sodium Capsule, 100 mg= 1 capsule, By Mouth, 2 times a day, PRN folic acid 1 mg oral tablet, 1 mg, By Mouth, Daily Insulin LISPRO Sliding Scale, 2-12 units, Subcutaneous Injection, 3 times a day before meals Lantus Inj, 10 units= 0.1 mL, Subcutaneous Injection, Daily at bedtime lisinopril 10 mg oral tablet, 10 mg, By Mouth, Daily meclizine 12.5 mg oral tablet, 12.5 mg, By Mouth, 3 times a day, PRN Melatonin Tablet, 3 mg, By Mouth, Daily at bedtime, PRN MiraLax Powder, 17 Gm= 1 pack/packet, By Mouth, Daily, PRN MorPHINE Inj, 4 mg, IV Push Slowly, Every 5 minutes, PRN MorPHINE Inj, 1 mg, IV Push Slowly, Every 4 hours, PRN NaCL 0.9% Flush, 3 mL, IV Push, Every 8 hours NaCL 0.9% Flush, 3 mL, IV Push, Every 8 hours, PRN Ondansetron Inj, 4 mg, IV Push Slowly, Every 30 minutes, PRN pantoprazole 40 mg oral delayed release tablet, 40 mg, By Mouth, Daily pregabalin 50 mg oral capsule, 100 mg, By Mouth, 2 times a day Robitussin DM Liquid, 10 mL, By Mouth, Every 4 hours, PRN Senna Tablet, 8.6 mg= 1 tablet, By Mouth, 2 times a day, PRN Simethicone Tablet, 80 mg, Chew, 3 times a day, PRN thiamine 100 mg oral tablet, 100 mg, By Mouth, 2 times a day Home amLODIPine 5 mg oral tablet, 5 mg, By Mouth, Daily Aspirin Tablet, 81 mg, By Mouth, Daily atorvastatin 40 mg oral tablet, 40 mg= 1 tablet, By Mouth, Daily folic acid 1 mg oral tablet gabapentin 300 mg oral capsule, 300 mg, By Mouth, 3 times a day hydrochlorothiazide 25 mg oral tablet, 12.5 mg= 0.5 tablet, By Mouth, 2 times a day hydrOXYzine hydrochloride 25 mg oral tablet, By Mouth, 3 times a day insulin glargine 100 units/mL subcutaneous solution, 15 units, Subcutaneous Injection, Daily at bedtime insulin lispro 100 u/ml subcutaneous injection, 2-10 units, Subcutaneous Injection, 3 times a day before meals Insulin Syringe, BD Ultra-Fine 0.3 cc 31 G x 8 mm (16in), See Instructions lisinopril 10 mg oral tablet, 10 mg= 1 tablet, By Mouth, Daily magnesium oxide 400 mg oral tablet, 400 mg, By Mouth, 2 times a day meclizine 12.5 mg oral tablet, 12.5 mg= 1 tablet, By Mouth, 3 times a day, PRN MELATONIN TAB 3MG Melatonin 5 mg oral tablet, 5 mg= 1 tablet, By Mouth, Daily at bedtime, PRN, 3 refills omeprazole 40 mg oral enteric coated capsule, 40 mg= 1 capsule, By Mouth, Daily ondansetron 4 mg oral tablet, See Instructions, PRN One Touch Fine Point Lancets, See Instructions One Touch Ultra 2 Glucose Meter, See Instructions One Touch Ultra Test Strips, See Instructions Potassium Chloride (Rym-Mqsh-Rfw M20) 20 mEq oral tablet, extended release pregabalin 100 mg oral capsule, 100 mg= 1 capsule, By Mouth, 2 times a day ProAir HFA 90 mcg/inh inhalation aerosol with adapter, 2 puffs, Inhalation, 4 times a day, PRN Pyridoxine Tablet, 50 mg, By Mouth, Daily thiamine 100 mg oral tablet, 100 mg, By Mouth, 2 times a day Allergies Bee Stings Social History Alcohol Use: Current. Frequency: 1-2 times per week. Substance Abuse Use: Never. Tobacco Other: pt quit 4mo ago. Family History Panic disorder without agoraphobia: Sister. Lab Results Test Name Test Result Date/Time WBC 9.9 k/mm3 07/02/2023 03:05 EDT RBC 4.51 m/mm3 07/02/2023 03:05 EDT Hgb 13.3 Gm/dL 07/02/2023 03:05 EDT Hct 39.8 % 07/02/2023 03:05 EDT MCV 88.2 femtoliters 07/02/2023 03:05 EDT MCH 29.5 pg 07/02/2023 03:05 EDT MCHC 33.4 g/dL 07/02/2023 03:05 EDT Platelet Count 504 k/mm3 07/02/2023 03:05 EDT Sodium 136 mmol/L 07/02/2023 03:05 EDT Potassium HEMOLYZED 07/02/2023 03:05 EDT Chloride 100 mmol/L 07/02/2023 03:05 EDT Bicarbonate Level 16 mmol/L 07/02/2023 03:05 EDT Anion Gap 20 07/02/2023 03:05 EDT Glucose Level 324 mg/dL 07/02/2023 03:05 EDT Glucose, POC 124 mg/dL 07/02/2023 11:50 EDT Glucose, POC 341 mg/dL 07/02/2023 02:28 EDT BUN 17 mg/dL 07/02/2023 03:05 EDT Creatinine-Blood 0.38 mg/dL 07/02/2023 03:05 EDT Estimated GFR Creatinine 117 ML/MIN/1.73 M2 07/02/2023 03:05 EDT Calcium 9.1 mg/dL 07/02/2023 03:05 EDT Protein, Total 7.5 Gm/dL 07/02/2023 03:05 EDT Albumin 4.1 Gm/dL 07/02/2023 03:05 EDT AG Ratio 1.2 07/02/2023 03:05 EDT Alkaline Phosphatase 95 units/L 07/02/2023 03:05 EDT Lipase 206 units/L 07/02/2023 03:05 EDT AST (SGOT) HEMOLYZED 07/02/2023 03:05 EDT ALT (SGPT) 25 units/L 07/02/2023 03:05 EDT Bilirubin, Total <0.2 mg/dL 07/02/2023 03:05 EDT Diagnostic Results ?? CT Head/Brain ?? IMPRESSION: No acute intracranial pathology. ?? CT Angio Head/Neck ?? IMPRESSION:? 1. ??No proximal occlusion or high grade stenosis in the major arteries of the head and neck. 2. ??Mild narrowing of the right proximal cervical ICA (25% by NASCET criteria), as well as mild narrowing of the intracranial ICAs on each side. ?? EKG study * Event Display: ECG 12-Lead Authored Date: Please click on pdf link to open report * Event Display: ECG 12-Lead Authored Date: Ventricular Rate: 110 BPM Atrial Rate: 110 BPM P-R Interval: 182 ms QRS Duration: 86 ms Q-T Interval: 348 ms QTC Calculation(Bazett): 470 ms P [place]: 49 degrees R [place]: -2 degrees T [place]: 37 degrees Sinus tachycardia Inferior infarct , age undetermined Abnormal ECG When compared with ECG of 14-APR-2023 21:07, Inferior infarct is now Present Confirmed by Josiah Kaiser ([id number]) on 07/02/2023 7:28:54 AM [place]: [facility] * Event Display: Cardiac Rhythm Strips Authored Date: Hospital Progress note * Dinora Vincent: PERFORM Event Display: Progress [facility] Authored Date: Patient: ??DONNA HAMPTON ? Age:??57 Years?Sex:??Female?:??1965?? Current inpatient regimen: Lantus 5 units in the morning Humalog??scale 2: 150+2: 50, 3 times daily prior to meals. ??Hold if NPO ?? Blood sugars trends:??Blood sugars in the last 24 hours ranged between 123 and 165. ??fasting 165. Patient has received 5 units of insulin yesterday, no correction was needed as her BG were in range.Please continue regimen.? Plan: Continue Lantus 5 units in the morning Continue Humalog scale 2: 150+2: 50, 3 times daily prior to meals. ??Hold if NPO ?? Discharge plan:??Unclear what her home regimen is, patient is unclear what dose/which insulin she is on at home. Notes nursing aid at home helps with her diabetes management and insulin. Based on yesterday/s trends,??would recommend??the following:?? - Lantus 5 units daily - glimepiride 1mg daily with her meal. ??Follow up with her PCP for diabetes care. Check blood sugars at least 3 times daily. Call your PCP if BG < 70, over 400 or consistently > 250.?? Please make sure patient has insulin prescriptions and aid at home. Please make sure patient has adequate testing supplies at home. ?? BIDS will continue to monitor glycemic trends. * Gaston TRUJILLO, Sera Waddell: PERFORM Event Display: Progress Note Hospital Authored Date: [id number] Patient: ??DONNA HAMPTON ? Age:??57 Years?Sex:??Female?:??1965?? Subjective ?? - No acute events - Diabetic counselling - Morphine discontinued, her neuropathy pain would be better controlled with improved diabetic control and is already on Pregabalin ?? - CM will try and arrange home support - BIDs consulted per patient request and history of challenging DM ?? - Anticipate dc 07/03 ?? Review of Systems Other than those positives as noted above, the remaining comprehensive 14-point review of systems is negative. Objective Vital Signs?? Temperature: 97.8 DegF (07/03/23 12:29:00) Temperature Route: Oral (07/03/23 12:29:00) Pulse Rate:??94 bpm??High (07/03/23 12:29:00) Respiratory Rate: 18 br/min (07/03/23 12:29:00) Systolic Blood Pressure:??152 mm Hg??High (07/03/23 12:29:00) Diastolic Blood Pressure: 80 mm Hg (07/03/23 12:29:00) Blood pressure sites: Arm, right (07/03/23 12:29:00) Mean Arterial Pressure: 104 mm Hg (07/03/23 12:29:00) Pulse Pressure: 72 mm Hg (07/03/23 12:29:00) Oxygen Saturation: 100 % (07/03/23 12:29:00) Mode of Delivery (Oxygen): Room air (07/03/23 12:29:00) Early Warning Score: 3 (07/03/23 12:30:52) ? Intake/Output? 07/01 06:48 07/02 07:00 07/01 07:00 06/30 07:00 06/29 07:00 ?? 07/02 12:53 07/02 12:53 07/02 06:59 07/01 06:59 06/30 06:59 Intake ?0 ?0 ?0 ?0 ?0 Output ?700 ?0 ?700 ?0 ?0 Net Total ? -700 ?0 ? -700 ?0 ?0 ? Urine Count ?1 ?0 ?1 ?0 ?0 ? Physical Exam Constitutional: Alert, in no acute distress. Mental Status: Oriented to person, place and time. Respiratory: Clear to auscultation and percussion. No wheezing, rales or rhonchi. Cardiovascular: S1 S2 regular. No murmurs, rubs or gallops. Gastrointestinal: Abdomen soft, non-tender, non-distended. Normal bowel sounds. No pulsatile mass. No hepatosplenomegaly. Genitourinary: No costovertebral angle tenderness. Neurologic: Cranial nerves II-XII grossly intact. No focal neurological deficits. _ Home Medications Albuterol (ProAir HFA 90 mcg/inh inhalation aerosol with adapter)?2?puff(s)?Inhalation?4 times a day?as needed?for wheezing Amlodipine (amLODIPine 5 mg oral tablet)?5?Milligram?By Mouth?Daily Aspirin (Aspirin Tablet)?81?Milligram?By Mouth?Daily Atorvastatin (atorvastatin 40 mg oral tablet)?1?tab(s)?40?Milligram?By Mouth?Daily Durable Medical Equipment (One Touch Fine Point Lancets)?See Instructions?for 30?Days?use as directed for Type 2 Diabetes Mellitus Durable Medical Equipment (One Touch Ultra 2 Glucose Meter)?See Instructions?for 30?Days?use as directed for Type 2 Diabetes Mellitus Durable Medical Equipment (One Touch Ultra Test Strips)?See Instructions?for 30?Days?use as directed for Type 2 Diabetes Mellitus Durable Medical Equipment (Insulin Syringe, BD Ultra-Fine 0.3 cc 31 G x 8 mm (5/16in))?See Instructions?for 30?Days?use as directed for Type 2 Diabetes Mellitus Folic Acid (folic acid 1 mg oral tablet)?TAKE 1 TABLET BY MOUTH DAILY Gabapentin (gabapentin 300 mg oral capsule)?300?Milligram?By Mouth?3 times a day Hydrochlorothiazide (hydrochlorothiazide 25 mg oral tablet)?12.5?Milligram?0.5?tablet?By Mouth?2 times a day HydrOXYzine (hydrOXYzine hydrochloride 25 mg oral tablet)?By Mouth?3 times a day Insulin Glargine (insulin glargine 100 units/mL subcutaneous solution)?15?unit(s)?Subcutaneous Injection?Daily at bedtime Insulin Lispro (insulin lispro 100 u/ml subcutaneous injection)?2-10 units?Subcutaneous Injection?3 times a day before meals?<< Sliding Scale Comments >>150 - 199 ?? 2 units Call if less than [id number] - 249 ?? 4 units 250 - 299 ?? 6 units 300 - 349 ?? 8 units 350 - 399 ?? 10 units Call if greater than 400<< Sliding Scale Comments >> Lisinopril (lisinopril 10 mg oral tablet)?10?Milligram?1?tablet?By Mouth?Daily Magnesium Oxide (magnesium oxide 400 mg oral tablet)?400?Milligram?By Mouth?2 times a day Meclizine (meclizine 12.5 mg oral tablet)?1?tab(s)?12.5?Milligram?By Mouth?3 times a day?as needed?for dizziness Melatonin (Melatonin 5 mg oral tablet)?1?tab(s)?5?Milligram?By Mouth?Daily at bedtime?as needed?for insomnia Omeprazole (omeprazole 40 mg oral enteric coated capsule)?1?capsule?40?Milligram?By Mouth?Daily Ondansetron (ondansetron 4 mg oral tablet)?See Instructions?as needed?as needed for nausea/vomiting?1-2 tablet By Mouth Every 8 hours Potassium Chloride (Potassium Chloride (Boi-Pujk-Xeh M20) 20 mEq oral tablet, extended release)?TAKE 1 TABLET BY MOUTH DAILY Pregabalin (pregabalin 100 mg oral capsule)?1?capsule?100?Milligram?By Mouth?2 times a day Pyridoxine (Pyridoxine Tablet)?50?Milligram?By Mouth?Daily Thiamine (thiamine 100 mg oral tablet)?100?Milligram?By Mouth?2 times a day ? Inpatient Medications Medications (23) Active SCHEDULED: (12) Amlodipine 5 mg Tablet (amLODIPine 5 mg oral tablet) ??5 mg, By Mouth, Daily Atorvastatin 40 mg Tablet (atorvastatin 40 mg oral tablet) ??40 mg, By Mouth, Daily Enoxaparin 40 mg Inj (Enoxaparin Inj) ??40 mg 0.4 mL, Subcutaneous Injection, Daily Folic Acid 1 mg Tablet (folic acid 1 mg oral tablet) ??1 mg, By Mouth, Daily Insulin Glargine 100 units/mL Inj (Lantus Inj) ??5 units 0.05 mL, Subcutaneous Injection, Daily in AM Insulin Lispro 100 units/mL Inj (Insulin LISPRO Sliding Scale) ??2-12 units, Subcutaneous Injection, 3 times a day before meals Lisinopril 10 mg Tablet (lisinopril 10 mg oral tablet) ??10 mg, By Mouth, Daily Magnesium Sulfate 2 Gm /50 mL (Magnesium Sulfate IVPB) ??2 Gm 50 mL, IVPB, Once NaCl 0.9% Flush 3ml (NaCL 0.9% Flush) ??3 mL, IV Push, Every 8 hours Pantoprazole 40 mg EC Tablet (pantoprazole 40 mg oral delayed release tablet) ??40 mg, By Mouth, Daily Pregabalin 50 mg Capsule (pregabalin 50 mg oral capsule) ??100 mg, By Mouth, 2 times a day Thiamine 100 mg Tablet (thiamine 100 mg oral tablet) ??100 mg, By Mouth, 2 times a day CONTINUOUS: (0) PRN: (11) Acetaminophen 325 mg Tablet (Acetaminophen Tablet) ??650 mg, By Mouth, Every 4 hours Albuterol 90mcg/Inhalation Inhaler HFA (albuterol CFC free 90 mcg/inh inhalation aerosol) ??180 mcg2 puffs, Inhalation, Every 4 hours Dextromethorphan-Guaifenesin 20 mg-200 mg/10 mL Liqu UD (Robitussin DM Liquid) ??10 mL, By Mouth, Every 4 hours Docusate Sodium 100 mg Capsule (Docusate Sodium Capsule) ??100 mg 1 capsule, By Mouth, 2 times a day Meclizine 12.5 mg Tablet (meclizine 12.5 mg oral tablet) ??12.5 mg, By Mouth, 3 times a day Melatonin 3 mg Tablet (Melatonin Tablet) ??3 mg, By Mouth, Daily at bedtime NaCl 0.9% Flush 3ml (NaCL 0.9% Flush) ??3 mL, IV Push, Every 8 hours Ondansetron 2mg/mL Inj (2mL Vial) (Ondansetron Inj) ??4 mg, IV Push Slowly, Every 30 minutes Polyethylene Glycol 17 Gm Powder (MiraLax Powder) ??17 Gm 1 pack/packet, By Mouth, Daily Senna Tablet ??8.6 mg 1 tablet, By Mouth, 2 times a day Simethicone 80 mg Chewable Tablet (Simethicone Tablet) ??80 mg, Chew, 3 times a day ? Results Abnormal Labs ?? BLOOD COUNT & DIFF Abs. NRBC?0.0 k/mm3 ()?07/03/2023 07:37 MPV?8.3 femtoliters (Low)?07/03/2023 07:37 Nucleated RBC (Automated)?0.0 #/100 WBC'S ()?07/03/2023 07:37 RDW-SD?44.2 femtoliters ()?07/03/2023 07:37 ?? CHEM GENERAL Creatinine-Blood?0.44 mg/dL (Low)?07/03/2023 07:37 Estimated GFR Creatinine?113 ML/MIN/1.73 M2 ()?07/03/2023 07:37 Glucose Level?137 mg/dL (High)?07/03/2023 07:37 Glucose, POC?130 mg/dL (High)?07/03/2023 07:44 ?? Note: Critical results are displayed in red. ? Assessment/Plan Diagnoses COPD type B ??(J44.89) Chronic GERD ??(K21.9) Diabetic neuropathy, painful ??(E11.40) Dizziness ??(R42) Homeless ??(Z59.00) Hyperglycemia due to diabetes mellitus ??(E11.65) Hyperlipidemia ??(E78.5) Hypertension ??(I10) Insomnia ??(G47.00) Insulin dependent type 2 diabetes mellitus ??(E11.9) Pancreatitis ??(K85.90) Poorly controlled diabetes mellitus ??(E11.65) Tachycardia ??(R00.0) Vertigo ??(R42) ?? 57-year-old female with a past medical history diabetes, diabetic neuropathy, GERD, vertigo and hyperlipidemia who had presented to [facility] in the setting of dizziness and blurred vision. [place] to be dehydration in setting of uncontrolled Diabetes. ? Diabetic neuropathy, painful ??(E11.40) Hyperglycemia due to diabetes mellitus ??(E11.65) Insulin dependent type 2 diabetes mellitus ??(E11.9) Patient has been diagnosed with diabetes now for 2 years. She is on insulin - previously it appears that she had tried metformin and Trulicity. Patient presented with dizziness in the setting of hyperglycemia. Patient was on Lantus 15 units at bedtime w/ ISS Plan: - POC TID before meals - Insulin with Lantus and ISS - Pregabalin 100 mg BID - BIDs consulted per patient request and history of challenging DM ?? Dizziness ??(R42) Vertigo ??(R42) Patient presented with dizziness/light headed with ambulation. Negative CT + CTA head and neck Prior MRI done in 12/2022 with similar presentation - negative Differential: Likely vertigo given changes in dizziness with movement of the head and worsening with ambulation.??CT and prior MRI for same presentation ruled out a malignancy vs stoke as cause of symptoms.?? Patient is hyperglycemic and so unlikely to be in the setting of hypoglycemia.?? We could consider it laverne in the setting of medications (like furosemide although less likely given she hasn't been takingit). - Trial meclizine 12.5 mg TID PRN for dizziness - No further investigation needed ? Hypertension ??(I10): Continue amlodipine 5 mg and lisinopril 10 mg PO QD ?? Insomnia ??(G47.00)Continue melatonin.?? Mention of patient being on trazodone.? Hyperlipidemia ??(E78.5) Continue atorvastatin ?? COPD type B ??(J44.89) ProAir albuterol 2 puffs for wheezing. ?? Chronic GERD ??(K21.9)Pantoprazole 40 mg PO QD ? Quality Metrics: Code Status: Full Code Diet: Diabetic diet DVT PPx: Enoxaparin 40 * Francia Vizcarra RN: PERFORM, SIGN, VERIFY Event Display: Progress Note Hospital Authored Date: [id number] Patient: DONNA HAMPTON Age: 57 years Sex: Female : 1965 Associated Diagnoses: None Author: Francia Vizcarra RN Findings Narrative/Incidental Patient alert and oriented times 3 this am, resting in bed safety precautions in place. No interventions needed at this time patient stable and compliant with care. Given tylenol and lyrica for neuropathy pain this am, possible dc tmw. Care ongoing patient stable at this time. . Consult note * Dinora Vincent: PERFORM Event Display: Consultation Note Authored Date: [id number] Patient: ??DONNA HAMPTON ? Age:??57 Years?Sex:??Female?:??1965?? History of Present Illness 57-year-old female with past medical history of type 2 diabetes, diabetic neuropathy, GERD, vertigo, hyperlipidemia who presented at [facility]??for concerns of dizziness and blurred vision.?Blood sugar on admission 341.?? Bids team consulted for assistance in glycemic management.?Medicines plan is to discharge patient tomorrow 07-04-2023. ?? DM history:??Patient has been diagnosed with type 2 diabetes for 2 years. ??Follows up with primarycare for diabetes management next appointment??July 12.??Patient states her nurse comes and checks her blood sugars 3 times daily??but when she is seen is 58 but usually blood sugars?? runs high. ??Ileana hull states no insulin for the past month??due to her nurse??disappearing??with her medications.?? Currently notes social work is helping her get new prescriptions and new??manager nursing home.?? Notes she has been hospitalized in the past for??hyper and hypoglycemia.?? Denies nephropathy or retinopathy does note neuropathy in her feet. ?? Home diabetes Meds:??Patient states Trulicity and??insulin in the past, although she does not remember the dosing. ??Does not know??how many units of long-acting or short acting insulin she has been receiving. Does not know is she had been recieving short acting insulin. ?? Current inpatient regimen: Lantus 5 units in the morning Humalog??scale 2: 150+2: 50, 3 times daily prior to meals. ??Hold if NPO ?? Blood sugars trends:??Blood sugars in the last 24 hours ranged between 97 and??262. ??Most [id number].?? Patient has received 13 units of insulin??(5 units of Lantus and 8 units of lispro) corresponding to a weight-based dose of 0.17 units/kg/day. ?? Interim history: Patient states she eats 100% of her meals no nausea no vomiting. Review of Systems Negative, unless noted in HPI Physical Exam Vitals & Measurements T:??97.8?F?? TMIN:??97.8?F?? TMAX:??98.1?F?? HR:??94??(Peripheral)?? RR:??18?? BP:??152/80?? SpO2:??100%?? Constitutional: Well appearing, alert, no apparent distress HEENT: NC/AT, anicteric sclera Neck: supple Respiratory: able to speak in full sentences, no audible wheezing, no use of accessory muscles. Assessment/Plan Assessment:??57-year-old female with past medical history of type 2 diabetes, diabetic neuropathy, GERD, vertigo, hyperlipidemia who presented at [facility]??for concerns of dizziness and blurred vision.?Blood sugar on admission 341.??Bids team consulted for assistance in glycemic management.?Me garg's plan is to discharge patient tomorrow 07-04-2023. ?? Poorly controlled diabetes mellitus (E11.65):?? - HbA1C:??8% - DM outpatient management:??PCP glycemic trends reviewed:??Blood sugars trending within hospital goals on current insulin regimen will recommend continuing on current regimen ?? Plan: Continue Lantus 5 units in the morning Continue Humalog scale 2: 150+2: 50, 3 times daily prior to meals. ??Hold if NPO ?? Discharge plan:??Unclear what her home regimen is, patient is unclear what dose/which insulin she is on at home. Notes nursing aid at home helps with her diabetes management. Would recommend 8 units of Lantus??daily (0.1u/kg/day) for discharge.??Patient could start glimepiride 2mg daily to cover for prandial requirements. Follow up with her PCP for diabetes care. Check blood sugars at least 3 times daily. Call your PCP if BG < 70, over 400 or consistently > 250.??Please make sure patient has insulin prescriptions and aid at home. Please make sure patient has adequate testing supplies at home. ?? BIDS will continue to monitor glycemic trends. ?? Problem List/Past Medical History Ongoing Anxiety Anxiety disorder Chronic chest pain Obese class I Panic disorder without agoraphobia with severe panic attacks 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 Procedure/Surgical History ???Laparoscopic cholecystectomy (05/10/2017) Medications Inpatient Acetaminophen Tablet, 650 mg, By Mouth, Every 4 hours, PRN albuterol CFC free 90 mcg/inh inhalation aerosol, 180 mcg= 2 puffs, Inhalation, Every 4 hours, PRN amLODIPine 5 mg oral tablet, 5 mg, By Mouth, Daily atorvastatin 40 mg oral tablet, 40 mg, By Mouth, Daily Docusate Sodium Capsule, 100 mg= 1 capsule, By Mouth, 2 times a day, PRN Enoxaparin Inj, 40 mg= 0.4 mL, Subcutaneous Injection, Daily folic acid 1 mg oral tablet, 1 mg, By Mouth, Daily Insulin LISPRO Sliding Scale, 2-12 units, Subcutaneous Injection, 3 times a day before meals Lantus Inj, 5 units= 0.05 mL, Subcutaneous Injection, Daily in AM lisinopril 10 mg oral tablet, 10 mg, By Mouth, Daily Magnesium Sulfate IVPB, 2 Gm= 50 mL, IVPB, Once meclizine 12.5 mg oral tablet, 12.5 mg, By Mouth, 3 times a day, PRN Melatonin Tablet, 3 mg, By Mouth, Daily at bedtime, PRN MiraLax Powder, 17 Gm= 1 pack/packet, By Mouth, Daily, PRN NaCL 0.9% Flush, 3 mL, IV Push, Every 8 hours NaCL 0.9% Flush, 3 mL, IV Push, Every 8 hours, PRN Ondansetron Inj, 4 mg, IV Push Slowly, Every 30 minutes, PRN pantoprazole 40 mg oral delayed release tablet, 40 mg, By Mouth, Daily pregabalin 50 mg oral capsule, 100 mg, By Mouth, 2 times a day Robitussin DM Liquid, 10 mL, By Mouth, Every 4 hours, PRN Senna Tablet, 8.6 mg= 1 tablet, By Mouth, 2 times a day, PRN Simethicone Tablet, 80 mg, Chew, 3 times a day, PRN thiamine 100 mg oral tablet, 100 mg, By Mouth, 2 times a day Home amLODIPine 5 mg oral tablet, 5 mg, By Mouth, Daily Aspirin Tablet, 81 mg, By Mouth, Daily atorvastatin 40 mg oral tablet, 40 mg= 1 tablet, By Mouth, Daily folic acid 1 mg oral tablet gabapentin 300 mg oral capsule, 300 mg, By Mouth, 3 times a day hydrochlorothiazide 25 mg oral tablet, 12.5 mg= 0.5 tablet, By Mouth, 2 times a day hydrOXYzine hydrochloride 25 mg oral tablet, By Mouth, 3 times a day insulin glargine 100 units/mL subcutaneous solution, 15 units, Subcutaneous Injection, Daily at bedtime insulin lispro 100 u/ml subcutaneous injection, 2-10 units, Subcutaneous Injection, 3 times a day before meals Insulin Syringe, BD Ultra-Fine 0.3 cc 31 G x 8 mm (07/05in), See Instructions lisinopril 10 mg oral tablet, 10 mg= 1 tablet, By Mouth, Daily magnesium oxide 400 mg oral tablet, 400 mg, By Mouth, 2 times a day meclizine 12.5 mg oral tablet, 12.5 mg= 1 tablet, By Mouth, 3 times a day, PRN MELATONIN TAB 3MG Melatonin 5 mg oral tablet, 5 mg= 1 tablet, By Mouth, Daily at bedtime, PRN, 3 refills omeprazole 40 mg oral enteric coated capsule, 40 mg= 1 capsule, By Mouth, Daily ondansetron 4 mg oral tablet, See Instructions, PRN One Touch Fine Point Lancets, See Instructions One Touch Ultra 2 Glucose Meter, See Instructions One Touch Ultra Test Strips, See Instructions Potassium Chloride (Kvc-Mavz-Qhh M20) 20 mEq oral tablet, extended release pregabalin 100 mg oral capsule, 100 mg= 1 capsule, By Mouth, 2 times a day ProAir HFA 90 mcg/inh inhalation aerosol with adapter, 2 puffs, Inhalation, 4 times a day, PRN Pyridoxine Tablet, 50 mg, By Mouth, Daily thiamine 100 mg oral tablet, 100 mg, By Mouth, 2 times a day Allergies Bee Stings Social History Alcohol Use: Current. Frequency: 1-2 times per week. Substance Abuse Use: Never. Tobacco Other: pt quit 4mo ago. Family History Panic disorder without agoraphobia: Sister. Immunizations Vaccine Date Status influenza virus vaccine, inactivated 01/06/2023 Given influenza virus vaccine, inactivated 03/12/2020 Recorded pneumococcal 23-valent vaccine 03/22/2019 Recorded influenza virus vaccine, inactivated 12/20/2018 Recorded influenza virus vaccine, inactivated 11/09/2017 Recorded Note * Talita Seaman RN: PERFORM Event Display: Discharge/Transfer Note Hospital Authored Date: [id number] Nursing Discharge Note Entered On: 07/04/2023 13:05 EDT Performed On: 07/04/2023 13:04 EDT by Talita Seaman RN Nursing Discharge Note 2 Discharge Time : 07/04/2023 13:00 EDT Discharge Level of Care at Discharge : Home/[facility]oster [facility] Patient Left Unit Via : Wheelchair Patient Accompanied Off Unit with : Responsible adult DC Instructions Provided & Signed by Pt : Yes Patient Understands D/C Instructions : Yes Patient Instructions Discharge Signed : Yes Discharge Comments : IV dc'd with the tip intact Did Pt have Specialty Bed or Wound Vac : No Talita Seaman RN - 07/04/2023 13:04 EDT * Gaston TRUJILLO, Sera Waddell: PERFORM Event Display: Discharge/Transfer Note Hospital Authored Date: [id number] Patient: ??DONNA HAMPTON ? Age:??57 Years?Sex:??Female?:??1965?? Patient Information Discharge Location: Primary Care Physician: Srikanth DUNBAR, Spencer Howard Admit Date/Time: 07/02/23 06:48 Discharge Disposition Discharge Disposition: Home: No Services Discharge Diagnosis Hyperglycemia due to diabetes mellitus (E11.65) Pancreatitis (K85.90) Dizziness (R42) Tachycardia (R00.0) Poorly controlled diabetes mellitus (E11.65) Insulin dependent type 2 diabetes mellitus (E11.9) Diabetic neuropathy, painful (E11.40) Vertigo (R42) Hypertension (I10) Insomnia (G47.00) Hyperlipidemia (E78.5) COPD type B (J44.89) Chronic GERD (K21.9) Homeless (Z59.00) _ Discharge Medications Albuterol (ProAir HFA 90 mcg/inh inhalation aerosol with adapter)?2?puff(s)?Inhalation?4 times a day?as needed?for wheezing Amlodipine (amLODIPine 5 mg oral tablet)?5?Milligram?By Mouth?Daily Atorvastatin (atorvastatin 40 mg oral tablet)?1?tab(s)?40?Milligram?By Mouth?Daily Durable Medical Equipment (Insulin Syringe, BD Ultra-Fine 0.3 cc 31 G x 8 mm (5/16in))?See Instructions?for 30?Days?use as directed for Type 2 Diabetes Mellitus Durable Medical Equipment (One Touch Fine Point Lancets)?See Instructions?for 30?Days?use as directed for Type 2 Diabetes Mellitus Durable Medical Equipment (One Touch Ultra 2 Glucose Meter)?See Instructions?for 30?Days?use as directed for Type 2 Diabetes Mellitus Durable Medical Equipment (One Touch Ultra Test Strips)?See Instructions?for 30?Days?use as directed for Type 2 Diabetes Mellitus Folic Acid (folic acid 1 mg oral tablet)?1?Milligram?1?tablet?By Mouth?Daily?TAKE 1 TABLET BY MOUTH DAILY Glimepiride (glimepiride 1 mg oral tablet)?1?tab(s)?1?Milligram?By Mouth?Daily?With breakfast Insulin Glargine (insulin glargine 100 units/mL subcutaneous solution)?5?unit(s)?Subcutaneous Injection?Daily in AM Lisinopril (lisinopril 10 mg oral tablet)?10?Milligram?1?tablet?By Mouth?Daily Meclizine (meclizine 12.5 mg oral tablet)?1?tab(s)?12.5?Milligram?By Mouth?3 times a day?as needed?for dizziness Melatonin (Melatonin 5 mg oral tablet)?1?tab(s)?5?Milligram?By Mouth?Daily at bedtime?as needed?for insomnia Omeprazole (omeprazole 40 mg oral enteric coated capsule)?1?capsule?40?Milligram?By Mouth?Daily Ondansetron (ondansetron 4 mg oral tablet)?See Instructions?as needed?as needed for nausea/vomiting?1-2 tablet By Mouth Every 8 hours Pregabalin (pregabalin 100 mg oral capsule)?1?capsule?100?Milligram?By Mouth?2 times a day Thiamine (thiamine 100 mg oral tablet)?100?Milligram?By Mouth?2 times a day ? Hospital Course ? 57-year-old female with a past medical history diabetes, diabetic neuropathy, GERD, vertigo and hyperlipidemia who had presented to [facility] in the setting of dizziness and blurred vision. Gravette to be dehydration in setting of uncontrolled Diabetes. ? Lab work normal after fluid resuscitation Symptoms resolved Diabetic control achieved Discharged in stable condition ? Diabetic neuropathy, painful ??(E11.40) Hyperglycemia due to diabetes mellitus ??(E11.65) Insulin dependent type 2 diabetes mellitus ??(E11.9) Patient has been diagnosed with diabetes now for 2 years. She is on insulin - previously it appears that she had tried metformin and Trulicity. Patient presented with dizziness in the setting of hyperglycemia. Unsure about compliance ?? Insulin regimen was adjusted Her neuropathy pain is controlled on pregabalin Seen by diabetic team, they recommended discharging on Lantus 5 units with glimepiride which was prescribed at discharge All insulin supplies were prescribed at discharge as well ? Dizziness ??(R42) Vertigo ??(R42) Patient presented with dizziness/light headed with ambulation. Negative CT + CTA head and neck Prior MRI done in 12/2022 with similar presentation - negative Differential: Likely vertigo given changes in dizziness with movement of the head and worsening with ambulation.?? Resolved and remained stable for discharge ? Hypertension ??(I10): Continue amlodipine 5 mg and lisinopril 10 mg PO QD ?? Insomnia ??(G47.00)Continue melatonin. ?? Hyperlipidemia ??(E78.5) Continue atorvastatin ?? COPD type B ??(J44.89) ProAir albuterol 2 puffs for wheezing. ?? Chronic GERD ??(K21.9)PPI ? Objective Measurements?? Height: 153 cm (07/04/23) Weight: 81.6 kg (07/02/23) Dry Weight: 77 kg (07/02/23) Body Mass Index:??34.86 kg/m2??Critical (07/02/23) ? Vital Signs?? Temperature: 97.2 DegF (07/04/23 07:54:00) Temperature Route: Oral (07/04/23 07:54:00) Pulse Rate: 89 bpm (07/04/23 07:54:00) Respiratory Rate: 18 br/min (07/04/23 09:07:00) Systolic Blood Pressure:??152 mm Hg??High (07/04/23 07:54:00) Diastolic Blood Pressure: 82 mm Hg (07/04/23 07:54:00) Blood pressure sites: Arm, right (07/04/23 07:54:00) Mean Arterial Pressure: 105 mm Hg (07/04/23 07:54:00) Pulse Pressure: 70 mm Hg (07/04/23 07:54:00) Oxygen Saturation: 100 % (07/04/23 07:54:00) Mode of Delivery (Oxygen): Room air (07/04/23 07:54:00) Early Warning Score: 3 (07/04/23 09:15:44) ? . Physical Exam ?? Constitutional: Alert, in no acute distress. Mental Status: Oriented to person, place and time. Respiratory: Clear to auscultation and percussion. No wheezing, rales or rhonchi. Cardiovascular: S1 S2 regular. No murmurs, rubs or gallops. Gastrointestinal: Abdomen soft, non-tender, non-distended. Normal bowel sounds. No pulsatile mass. No hepatosplenomegaly. Genitourinary: No costovertebral angle tenderness. Neurologic: Cranial nerves II-XII grossly intact. No focal neurological deficits. ? Pending Results Add On Lab Order ordered on 07/02/2023 Add On Lab Order ordered on 07/02/2023 Urinalysis w/hold for Urine Culture ordered on 07/02/2023 Follow-Up Appointments Added Follow Up ?Time Frame ?Comments Srikanth DUNBAR, Spencer Howard?Within two weeks Patient Instructions ?? Admitted to the hospital??with poorly controlled diabetes Your pain is due to neuropathy, if your diabetic control improves??this pain can be controlled as well Please follow the insulin that has been prescribed for you, all supplies have been prescribed for you as well 30 days of medications have been prescribed for you,??please follow closely with your primary care physician ?? New medication glimepiride has been started to better control your diabetes as well Post Discharge Care Activity: ??As tolerated ?? Code Status: ??Full Resuscitation ?? Condition: ??Stable ?? Prognosis: ??Fair ?? Discharge ?07/04/23 10:11:00 EDT Discharge Prescriptions ?ePrescribed, 07/04/23 10:12:00 EDT Home Health Face to Face ^HomeHealthFTF Results Discharge Labs BLOOD COUNT & DIFF WBC 10.6 k/mm3 ()?? 07/03/2023 07:37 RBC 4.28 m/mm3 ()?? 07/03/2023 07:37 Hgb 12.6 Gm/dL ()?? 07/03/2023 07:37 Hct 37.6 % ()?? 07/03/2023 07:37 MCV 87.9 femtoliters ()?? 07/03/2023 07:37 MCH 29.4 pg ()?? 07/03/2023 07:37 MCHC 33.5 g/dL ()?? 07/03/2023 07:37 Platelet Count 430 k/mm3 ()?? 07/03/2023 07:37 RDW-SD 44.2 femtoliters ()?? 07/03/2023 07:37 MPV 8.3 femtoliters (Low)?? 07/03/2023 07:37 Nucleated RBC (Automated) 0.0 #/100 WBC'S ()?? 07/03/2023 07:37 Abs. NRBC 0.0 k/mm3 ()?? 07/03/2023 07:37 Abs. Neut 4.4 k/mm3 ()?? 07/02/2023 03:05 Abs. Lymph 4.4 k/mm3 (High)?? 07/02/2023 03:05 Abs. Stephenson 0.7 k/mm3 ()?? 07/02/2023 03:05 Abs. Eo 0.2 k/mm3 ()?? 07/02/2023 03:05 Abs. Baso 0.1 k/mm3 ()?? 07/02/2023 03:05 Neut % 44.3 % ()?? 07/02/2023 03:05 Lymph % 45.1 % (High)?? 07/02/2023 03:05 Stephenson % 7.1 % ()?? 07/02/2023 03:05 Eos % 1.7 % ()?? 07/02/2023 03:05 Baso % 0.7 % ()?? 07/02/2023 03:05 Imm Gran 1.1 % ()?? 07/02/2023 03:05 Abs. Imm Gran 0.1 k/mm3 ()?? 07/02/2023 03:05 ?? BLOOD GAS pH, Venous 7.38 ()?? 07/02/2023 03:05 ? CARDIAC High Sensitivity Troponin (HSTnT) 8 ng/L ()?? 07/02/2023 04:55 ? CHEM GENERAL Sodium 134 mmol/L ()?? 07/03/2023 07:37 Potassium 4.4 mmol/L ()?? 07/03/2023 07:37 Chloride 101 mmol/L ()?? 07/03/2023 07:37 Bicarbonate Level 22 mmol/L ()?? 07/03/2023 07:37 Anion Gap 11 ()?? 07/03/2023 07:37 Glucose Level 137 mg/dL (High)?? 07/03/2023 07:37 Glucose, POC 151 mg/dL (High)?? 07/04/2023 07:49 Hemoglobin A1C (Monitoring) 8.0 % (High)?? 07/02/2023 10:56 Beta Hydroxybutyrate 0.06 mmol/L ()?? 07/02/2023 10:56 BUN 10 mg/dL ()?? 07/03/2023 07:37 Creatinine-Blood 0.44 mg/dL (Low)?? 07/03/2023 07:37 Estimated GFR Creatinine 113 ML/MIN/1.73 M2 ()?? 07/03/2023 07:37 Calcium 9.1 mg/dL ()?? 07/02/2023 03:05 Phosphorus 3.7 mg/dL ()?? 07/03/2023 07:37 Magnesium 1.6 mg/dL ()?? 07/03/2023 07:37 Protein, Total 7.5 Gm/dL ()?? 07/02/2023 03:05 Albumin 4.1 Gm/dL ()?? 07/02/2023 03:05 AG Ratio 1.2 ()?? 07/02/2023 03:05 Alkaline Phosphatase 95 units/L ()?? 07/02/2023 03:05 Lipase 206 units/L (High)?? 07/02/2023 03:05 AST (SGOT) HEMOLYZED units/L ()?? 07/02/2023 03:05 ALT (SGPT) 25 units/L ()?? 07/02/2023 03:05 Bilirubin, Total <0.2 mg/dL ()?? 07/02/2023 03:05 ? HEME OTHER Hold Lavender Top SPECIMEN DISCARDED AFTER 24 HOURS. ()?? 07/02/2023 10:56 ? UA/URINALYSIS Appear/Color, Urine LIGHT YELLOW ()?? 07/02/2023 10:18 Specific Cowley, Urine >1.050 (High)?? 07/02/2023 10:18 pH, Urine 6.0 ()?? 07/02/2023 10:18 Albumin, Urine TRACE (Abnormal)?? 07/02/2023 10:18 Glucose, Urine 4+ (Abnormal)?? 07/02/2023 10:18 Ketones, Urine NEGATIVE ()?? 07/02/2023 10:18 Bilirubin, Urine NEGATIVE ()?? 07/02/2023 10:18 Hemoglobin, Urine NEGATIVE ()?? 07/02/2023 10:18 Nitrite, Urine NEGATIVE ()?? 07/02/2023 10:18 Leukocyte, Urine NEGATIVE ()?? 07/02/2023 10:18 Urobilinogen NORMAL mg/dL ()?? 07/02/2023 10:18 WBC's, Urine 1 /HPF ()?? 07/02/2023 10:18 RBC's, Urine 2 /HPF ()?? 07/02/2023 10:18 Bacteria SLIGHT HPF (Abnormal)?? 07/02/2023 10:18 Squamous Epith 3 /HPF ()?? 07/02/2023 10:18 Hold Urine Culture Testing available 48 hours from time of collection. ()?? 07/02/2023 10:18 ?? URINE OTHER Est Creatinine Clearance 102.54 mL/min ()?? 07/03/2023 08:23 ? VIROLOGY COVID-19 by RT-PCR NEGATIVE ()?? 07/02/2023 07:04 ? Microbiology ?? COVID-19 (Novel Coronavirus), Rapid PCR?? Completed?? Source: Nasal Body Site: Nose Collected Dt/Tm: 07/02/2023 06:48 Last Updated Dt/Tm: 07/02/2023 07:53 ? Imaging(s) ?CT Head/Brain W/O Contrast ?? 07/02/2023 04:05??by Declan Rojas MD ?No acute intracranial pathology. ? 42_ minutes spent on discharge * Talita Seaman RN: PERFORM Event Display: Patient Education/Instruction Authored Date: Inpatient Adult Discharge Instructions. [address] [address] Name: DONNA HAMPTON : 1965?? Visit: 07/02/2023 06:48?? Current Date: 07/04/2023 12:39 ?? Account: [id number]?? Inpatient Adult Discharge Instructions We would like [...] and their families. Surveys are administered by [employer] ?? If further treatment with your primary care physician or another doctor is recommended, it is important for you to keep the appointment. Call your primary care physician or return to the Emergency Department immediately if your condition worsens, fails to improve, or new symptoms develop. If you need to find a doctor, you can call [facility] Link for a referral at [phone] or toll free at [phone] ([phone]) or log in to [email or web address].. ?? [facility], in keeping with [facility] guidance, no longer requires face masks [...] a health care rudy of your choosing. [employer] is a website that allows you to securely view your medical information including your hospital discharge summary, office visit summaries, medications and follow-up visits. You can also request appointments, renew medications, and request access to your medical information using a health care rudy of your choosing, or just ask a question. You can enroll at [email or web address] or register during your next office visit. You have been discharged from [facility], Patient Care Unit: S3??. If you have any questions regarding these instructions, including results of studies pending, afteryou leave, please call us and we will be happy to assist you 12/09. [facility] Your Care Team Attending Physician Sera Feldman MD?? Consulting Providers Sera Feldman MD?? Discharging Providers Sera Feldman MD Reason for Your Visit hyperglycemia, dizziness, tachycardia, acidosis?? Your Diagnosis Chronic GERD COPD type B Diabetic neuropathy, painful General medical Homeless Hyperlipidemia Hypertension Insomnia Insulin dependent type 2 diabetes mellitus Poorly controlled diabetes mellitus Vertigo Tests Performed Below is a partial list of the tests performed during your hospitalization. You may have had other tests and procedures not included in this list. Please discuss all test results with your provider. Beta Hydroxybutyrate BUN CBC CBC w/ Differential Comprehensive Metabolic Panel COVID-19 (Novel Coronavirus), Rapid PCR Creatinine Electrolytes Glucose Level GLUCOSE POC HEMOGLOBIN A1C High??Sensitivity??Troponin T HOLD LAVENDER TUBE Lipase Magnesium Level pH Venous Phosphorus Level Potassium Level Troponin T, High Sensitivity Urinalysis w/hold for Urine Culture CT Angio Head CT Angio Neck CT Head/Brain W/O Contrast Add On Lab Order?? Urinalysis w/hold for Urine Culture?? Primary Care Provider Spencer Duke? Advance Directive Health Care Proxy on File Yes - Health Care Proxy Discharge Vitals Temperature: 97.3 DegF Height: 153 cm Pulse Rate:??108 bpm??High Weight: 81.6 kg Respiratory Rate: 18 br/min Body Mass Index:??34.86 kg/m2??Critical Systolic Blood Pressure: 138 mm Hg Body surface area: 1.86 Diastolic Blood Pressure:??93 mm Hg??High ?? Oxygen Saturation: 100 % ?? Studies Pending All studies ordered during this hospital stay have been completed unless listed below. Please discuss all pending results with your provider listed above in these instructions. ?? Add On Lab Order?? Urinalysis w/hold for Urine Culture?? What to do next Instructions From Your Doctor ?? Admitted to the hospital??with poorly controlled diabetes Your pain is due to neuropathy, if your diabetic control improves??this pain can be controlled as well Please follow the insulin that has been prescribed for you, all supplies have been prescribed for you as well 30 days of medications have been prescribed for you,??please follow closely with your primary care physician ?? New medication glimepiride has been started to better control your diabetes as well ?? Orders??:As tolerated Status: ??Full Resuscitation :Stable :Fair? 07/04/23 10:11:00 EDT?? Prescriptions??, ??07/04/23 10:12:00 EDT?? You Need to Schedule the Following Appointments Follow Up with??Srikanth DUNBAR, Spencer Howard When:??Within Within two weeks Where: [address] [place] [id number]- Discharge Medications JOSEDONNA DUDLEY :1965 Visit Date:07/02/2023 Medications: Please continue your medications until treatment is completed or stopped by your provider. Medications not listed below should be discontinued. Discuss any questions related to medications with your provider. What How Much When Instructions Next Dose New Glimepiride (glimepiride 1 mg oral tablet) 1 tab(s) Oral Daily With breakfast ?? Pickup at [place] [address] 07/04 AM Changed Folic Acid (folic acid 1 mg oral tablet) 1 tab(s) Oral Daily TAKE 1 TABLET BY MOUTH DAILY ?? Pickup at [place] [address] 07/04 AM Changed Insulin Glargine (insulin glargine 100 units/ mL subcutaneous solution) 5 unit(s) Subcutaneous Injection Daily in the morning Pickup at [place] [address] 07/04 AM Unchanged Albuterol (ProAir HFA 90 mcg/ inh inhalation aerosol with adapter) 2 puff(s) Inhalation 4 times a day as needed for for wheezing as needed Unchanged Amlodipine (amLODIPine 5 mg oral tablet) 5 Milligram Oral Daily Pickup at [place] [address] 07/04 AM Unchanged Atorvastatin (atorvastatin 40 mg oral tablet) 1 tab(s) Oral Daily Pickup at [place] [address] 07/04 AM Unchanged Durable Medical Equipment (Insulin Syringe, BD Ultra-Fine 0.3 cc 31 G x 8 mm (in)) See instructions Duration: 30 Days use as directed for Type 2 Diabetes Mellitus ?? Pickup at [place] [address] Unchanged Durable Medical Equipment (One Touch Fine Point Lancets) See instructions Duration: 30 Days use as directed for Type 2 Diabetes Mellitus ?? Pickup at [place] [address] Unchanged Durable Medical Equipment (One Touch Ultra 2 Glucose Meter) See instructions Duration: 30 Days use as directed for Type 2 Diabetes Mellitus ?? Pickup at [place] [address] Unchanged Durable Medical Equipment (One Touch Ultra Test Strips) See instructions Duration: 30 Days use as directed for Type 2 Diabetes Mellitus ?? Pickup at [place] [address] Unchanged Lisinopril (lisinopril 10 mg oral tablet) 1 tab(s) Oral Daily Pickup at [place] [address] 07/04 AM Unchanged Meclizine (meclizine 12.5 mg oral tablet) 1 tab(s) Oral 3 times a day as needed for for dizziness as needed Unchanged Melatonin (Melatonin 5 mg oral tablet) 1 tab(s) Oral Daily at Bedtime as needed for for insomnia as needed Unchanged Omeprazole (omeprazole 40 mg oral enteric coated capsule) 1 capsule Oral Daily Pickup at [place] [address] 07/04 AM Unchanged Ondansetron (ondansetron 4 mg oral tablet) See instructions 1-2 tablet By Mouth Every 8 hours, As needed for as needed for nausea/ vomiting ?? as needed Unchanged Pregabalin (pregabalin 100 mg oral capsule) 1 capsule Oral Twice a day Pickup at [place] [address] 07/03 PM Unchanged Thiamine (thiamine 100 mg oral tablet) 100 Milligram Oral Twice a day 07/03 PM Pharmacy Information [place] [address]: [address] [place], [place] [id number] [phone] ?? What How Much When Comments Stop Taking Aspirin (Aspirin Tablet) 81 Milligram Oral Daily Stop Taking dulaglutide (Trulicity Pen 0.75 mg/ 0.5 mL subcutaneous solution) 0.5 Milliliter Subcutaneous Injection Every week Stop Taking Gabapentin (gabapentin 300 mg oral capsule) 300 Milligram Oral 3 times a day Stop Taking Hydrochlorothiazide (hydrochlorothiazide 25 mg oral tablet) 0.5 tab(s) Oral Twice a day Stop Taking HydrOXYzine (hydrOXYzine hydrochloride 25 mg oral tablet) Oral 3 times a day Stop Taking Insulin Lispro (insulin lispro 100 u/ ml subcutaneous injection) 2-10 units Subcutaneous Injection 3 times a day before meals << Sliding Scale Comments >> 150 - 199 ?? 2 units Call if less than 70 200 - 249 ?? 4 units 250 - 299 ?? 6 units 300 - 349 ?? 8 units 350 - 399 ?? 10 units Call if greater than 400 << Sliding Scale Comments >> ?? Stop Taking Magnesium Oxide (magnesium oxide 400 mg oral tablet) 400 Milligram Oral Twice a day Stop Taking Miscellaneous Rx (MELATONIN TAB 3MG) Stop Taking Potassium Chloride (Potassium Chloride (Tmd-Dbnu-Ymo M20) 20 mEq oral tablet, extended release) TAKE 1 TABLET BY MOUTH DAILY ?? Stop Taking Pyridoxine (Pyridoxine Tablet) 50 Milligram Oral Daily Prescription Given During Visit Amlodipine (amLODIPine 5 mg oral tablet) - 5 mg, By Mouth, Daily, # 30 tablet, 0 Refills, [place] [address] [id number]?? Atorvastatin (atorvastatin 40 mg oral tablet) - 1 tablet = 40 mg, By Mouth, Daily, # 30 tablet, 0 Refills, [place] [address] [id number]?? Durable Medical Equipment (One Touch Ultra Test Strips) - , # 100 each, 0 Refills, use as directed for Type 2 Diabetes Mellitus, [place] [address] [id number]?? Durable Medical Equipment (One Touch Ultra 2 Glucose Meter) - , # 1 each, 0 Refills, use as directed for Type 2 Diabetes Mellitus, [place] [address] [phone]?? Durable Medical Equipment (One Touch Fine Point Lancets) - , # 100 each, 0 Refills, use as directedfor Type 2 Diabetes Mellitus, [place] [address] [phone]?? Durable Medical Equipment (Insulin Syringe, BD Ultra-Fine 0.3 cc 31 G x 8 mm (5/16in)) - , # 30 each, 0 Refills, use as directed for Type 2 Diabetes Mellitus, [place] [address] [id number]?? Folic Acid (folic acid 1 mg oral tablet) - 1 tablet = 1 mg, By Mouth, Daily, # 30 tablet, 0 Refills, TAKE 1 TABLET BY MOUTH DAILY, [address] [address] [id number]?? Glimepiride (glimepiride 1 mg oral tablet) - 1 tablet = 1 mg, By Mouth, Daily, # 30 tablet, 0 Refills, With breakfast, [address] [address] [id number]?? Insulin Glargine (insulin glargine 100 units/mL subcutaneous solution) - 5 units, Subcutaneous Injection, Daily in AM, # 10 mL, 0 Refills, [address] [address] [id number]?? Lisinopril (lisinopril 10 mg oral tablet) - 1 tablet = 10 mg, By Mouth, Daily, # 30 tablet, 0 Refills, [address] [address] [id number]?? Omeprazole (omeprazole 40 mg oral enteric coated capsule) - 1 capsule = 40 mg, By Mouth, Daily, # 30 capsule, 0 Refills, [address] [address] [phone]?? Pregabalin (pregabalin 100 mg oral capsule) - 1 capsule = 100 mg, By Mouth, 2 times a day, # 60 capsule, 0 Refills, [address] [address] [id number]?? Laboratory Results Below is a partial list of the most recent Laboratory test results done prior to this discharge. You may have had other tests and procedures not included in this list. Please discuss all test resultswith your provider. Est Creatinine Clearance - 102.54 mL/min (07/03/2023) Beta Hydroxybutyrate (07/02/2023) ???Beta Hydroxybutyrate - 0.06 mmol/L BUN (07/03/2023) ???BUN - 10 mg/dL CBC (07/03/2023) ???WBC - 10.6 k/mm3???RBC - 4.28 m/mm3???Hgb - 12.6 Gm/dL???Hct - 37.6 %???MCV - 87.9 femtoliters???MCH - 29.4 pg???MCHC - 33.5 g/dL???Platelet Count - 430 k/mm3???RDW-SD - 44.2 femtoliters???MPV - 8.3 femtoliters???Nucleated RBC (Automated) - 0.0 #/100 WBC'S???Abs. NRBC - 0.0 k/mm3 CBC w/ Differential (07/02/2023) ???WBC - 9.9 k/mm3???RBC - 4.51 m/mm3???Hgb - 13.3 Gm/dL???Hct - 39.8 %???MCV - 88.2 femtoliters???MCH - 29.5 pg???MCHC - 33.4 g/dL???Platelet Count - 504 k/mm3???RDW-SD - 44.5 femtoliters???MPV - 8.4 femtoliters???Nucleated RBC (Automated) - 0.0 #/100 WBC'S???Abs. NRBC - 0.0 k/mm3???Abs. Neut - 4.4 k/mm3???Abs. Lymph - 4.4 k/mm3???Abs. Stephenson - 0.7 k/mm3???Abs. Eo - 0.2 k/mm3???Abs. Baso - 0.1 k/mm3???Neut % - 44.3 %???Lymph % - 45.1 %???Stephenson % - 7.1 %???Eos % - 1.7 %???Baso % - 0.7 %???Imm Gran- 1.1 %???Abs. Imm Gran - 0.1 k/mm3 Comprehensive Metabolic Panel (07/02/2023) ???Sodium - 136 mmol/L???Potassium - HEMOLYZED???Chloride - 100 mmol/L???Bicarbonate Level - 16 mmol/L???Anion Gap - 20???Glucose Level - 324 mg/dL???BUN - 17 mg/dL???Creatinine-Blood - 0.38 mg/dL???Estimated GFR Creatinine - 117 ML/MIN/1.73 M2???Calcium - 9.1 mg/dL???Protein, Total - 7.5 Gm/dL???Albumin - 4.1 Gm/dL???AG Ratio - 1.2???Alkaline Phosphatase - 95 units/L???AST (SGOT) - HEMOLYZED???ALT (SGPT) - 25 units/L? ?Bilirubin, Total - <0.2 mg/dL COVID-19 (Novel Coronavirus), Rapid PCR (07/02/2023) ???COVID-19 by RT-PCR - NEGATIVE Creatinine (07/03/2023) ???Creatinine-Blood - 0.44 mg/dL???Estimated GFR Creatinine - 113 ML/MIN/1.73 M2 Electrolytes (07/03/2023) ???Sodium - 134 mmol/L???Potassium - 4.4 mmol/L???Chloride - 101 mmol/L???Bicarbonate Level - 22 mmol/L???Anion Gap - 11 Glucose Level (07/03/2023) ???Glucose Level - 137 mg/dL GLUCOSE POC (07/04/2023) ???Glucose, POC - 173 mg/dL HEMOGLOBIN A1C (07/02/2023) ???Hemoglobin A1C (Monitoring) - 8.0 % High??Sensitivity??Troponin T (07/02/2023) ???High Sensitivity Troponin (HSTnT) - 7 ng/L HOLD LAVENDER TUBE (07/02/2023) ???Hold Lavender Top - SPECIMEN DISCARDED AFTER 24 HOURS. Lipase (07/02/2023) ???Lipase - 206 units/L Magnesium Level (07/03/2023) ???Magnesium - 1.6 mg/dL pH Venous (07/02/2023) ???pH, Venous - 7.38 Phosphorus Level (07/03/2023) ???Phosphorus - 3.7 mg/dL Potassium Level (07/02/2023) ???Potassium - 3.5 mmol/L Troponin T, High Sensitivity (07/02/2023) ???High Sensitivity Troponin (HSTnT) - 8 ng/L Urinalysis w/hold for Urine Culture (07/02/2023) ? ?Appear/Color, Urine - LIGHT YELLOW? ?Specific Cowley, Urine - >1.050? ?pH, Urine - 6.0? ?Albumin, Urine - TRACE???Glucose, Urine - 4+???Ketones, Urine - NEGATIVE???Bilirubin, Urine - NEGATIVE???Hemoglobin, Urine - NEGATIVE???Nitrite, Urine - NEGATIVE???Leukocyte, Urine - NEGATIVE???Urobilinogen - NORMAL???WBC's, Urine - 1 /HPF???RBC's, Urine - 2 /HPF???Bacteria - SLIGHT???Squamous Epith - 3 /HPF???Hold Urine Culture - Testing available 48 hours from time of collection. Allergies (NKA means No Known Allergies) Bee Stings Problems Active Problems??(6) Anxiety?? Anxiety disorder?? Chronic chest pain?? Obese class I?? Panic disorder without agoraphobia with severe panic attacks?? 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 Education Materials Below is the list of Educational Leaflet Providered with your Discharge Instructions. Valuables and Belongings I fully understand and agree that [facility] accepts no responsibility for all [...] to send valuables and belongings home. ?? Review of Valuable and Belonging List: With patient Date for Pt to Sign Valuables/Belongings: 07/04/23 12:01:00 ?? Other Discharge Information ? Case Management Discharge Plan?? Discharge Plan?? Discharge Level of Care at Discharge: Home/[facility]/Foster Care ?? Pulmonary Rehab Status?? Pulmonary Rehab Discharge [...] are strongly encouraged to quit. Please call [facility] Link at [phone] or [phone] [phone]) or log in to [email or web address] for referrals to smoking cessation programs. ?? 099 Suicide & Crisis Lifeline is available 12/09 if you or someone you know needs to find a reason to keep living. By calling 329 you'll be connected to a skilled, trained counselor at a crisis center in your area. INPATIENT DISCHARGE INSTRUCTIONS SIGNATURE PAGE DONNA HAMPTON Location:[facility] Registration Date and Time:07/02/2023 06:48 EDT Primary Care Physician: Spencer Ramires, Attending Physician: Gaston TRUJILLO, Sera Waddell, I DONNA HAMPTON, have received the above patient education materials/instructions and have verbalized understanding. If ambulance or transport services are being used I further acknowledge being given a choice of service. ?? If you need to contact me, please call me at this number: . Patient/Grinder Operator Automatic Name: Patient/Grinder Operator Automatic Signature: Relationship to Patient: Witness Name/Signature: Date: Patient Care team information Care Team Personnel Name: Spencer Ramires Position: Reference Physician Member Role: PCP Address: Address: [address] [place] [id number] Name: Rocio Vasquez RN Position: [facility] RN Member Role: Primary Care Nurse Name: Annette Loera RN Position: [facility] RN Member Role: Primary Care Nurse Name: Loretta Wright RN Position: [facility] RN Member Role: Primary Care Nurse Name: Ann Parham MA Position: [facility] RN Member Role: Primary Care Nurse Name: Lanye Odonnell Position: [facility] RN Member Role: Primary Care Nurse Name: Angie Vidal RN Position: [facility] RN Member Role: Primary Care Nurse Name: Roshni Lantigua RN Position: [facility] RN Member Role: Primary Care Nurse Name: Safia Umanzor Position: [facility] Outreach Member Role: Lifetime Consulting Physician Name: Samara Gooden MA Position: [facility] Outreach Member Role: Lifetime Consulting Physician Care Team Related Persons Name: MITA HAMPTON Address: [address] [address]
--- OUTSIDE RECORDS SUMMARY | 2023-07-28 08:51 | XMS_ITS | Continuity of Care Document ---
Author Organization [facility] ter Address [address] [place] [address]- Care Team Providers Care Black Studies Professor Name Role Phone Spencer Ramires Primary Care Physician Encounter [facility] [place] Date(s): 07/14/23 - 07/14/[address] [address]- Encounter Diagnosis Vertigo(Final) - 07/14/23 Discharge Disposition: A-D/C Home Attending Physician: Christopher Gooden DO Admitting Physician: Christopher Gooden DO Referring Physician: Not on Staff, Referring [...] 07/04/23 10:06:00 EDT, Route to Pharmacy Electronically, [facility], Partial fill upon patient request if theprescription is for a schedule II opioid drug., 153... Start Date: 07/04/23 Status: Ordered atorvastatin 40 mg oral tablet 1 tablet = 40 mg, By Mouth, Daily, # 30 tablet, 0 Refills, Maintenance, 07/04/23 10:08:00 EDT, Tablet, [facility], Partial fill upon patient request if the prescription is for a schedule II opioid drug., 153, cm, 07/04/23 7:54:00 EDT, He... Start Date: 07/04/23 Status: Ordered folic acid 1 mg oral tablet 1 mg, 1, tablet, By Mouth, Daily, TAKE 1 TABLET BY MOUTH DAILY, # 30 tablet, Refills 0, Tot. Refills 0, Maintenance, 07/04/23 10:08:00 EDT, [facility] fill upon patient request if the prescripti... Start Date: 07/04/23 Status: Ordered glimepiride 1 mg oral tablet 1 tablet = 1 mg, By Mouth, Daily, With breakfast, # 30 tablet, 0 Refills, Maintenance, 07/04/23 10:09:00 EDT, Tablet, [facility], Partial fill upon patient request if the prescription is for a schedule II opioid drug., 153, cm, 07/04/23... Start Date: 07/04/23 Status: Ordered insulin glargine 100 units/mL subcutaneous solution = 5 units, Subcutaneous Injection, Daily in AM, # 10 mL, 0 Refills, Maintenance, 07/04/23 10:08:00 EDT, Solution, [facility] 3, Partial fill upon patient request if [...] 07/04/23 10:09:00 EDT, Route to Pharmacy Electronically, [facility] 3, Partial fill upon patient request if [...] 0 Refills, Maintenance, 07/14/23 11:32:00 EDT, Tablet, [id number], Partial fill upon patient request if theprescription [...] 0 Refills, Maintenance, 07/04/23 10:09:00 EDT, ECCapsule, [facility], 153, cm, 07/04/23 7:54:00 EDT, Height, [...] 0 Refills, Maintenance, 07/04/23 10:09:00 EDT, Capsule, [facility], Partial fill upon patient request [...] Range]: 1 2 3 Height 153 cm (07/14/23 11:03 AM) 153 cm (07/14/23 8:53 AM) 153 cm (07/14/23 7:47 AM) Weight 76 kg (07/14/23 11:03 AM) 76 kg (07/14/23 8:53 AM) 76 kg (07/14/23 7:47 AM) Oxygen Saturation [94-100 %] 100 % (07/14/23 11:03 AM) 100 % (07/14/23 9:46 AM) 100 % (07/14/23 8:53 AM) Pulse Rate [55-90 bpm] 92 bpm *H* (07/14/23 11:03 AM) 90 bpm (07/14/23 9:46 AM) 96 bpm *H* (07/14/23 8:53 AM) Body Mass Index [18.5-24.99 kg/m2] 32.47 kg/m2 *>HHI* (07/14/23 11:03 AM) 32.47 kg/m2 *>HHI* (07/14/23 8:53 AM) 32.47 kg/m2 *>HHI* (07/14/23 7:47 AM) Blood Pressure [90-138/55-84 mm Hg] 152/77mm Hg *H* (07/14/23 11:03 AM) 151/84mm Hg *H* (07/14/23 9:46 AM) 145/87mm Hg *H* (07/14/23 8:53 AM) Respiratory Rate [16-30 br/min] 16 br/min (07/14/23 11:03 AM) 12 br/min *L* (07/14/23 9:46 AM) 17 br/min (07/14/23 8:53 AM) Temperature [96.8-100.4 DegF] 97.6 DegF (07/14/23 11:03 AM) 97.7 DegF (07/14/23 9:46 AM) 98.1 DegF (07/14/23 8:53 AM) Mode of Delivery (Oxygen) Room air (07/14/23 11:03 AM) Room air (07/14/23 9:46 AM) Room air (07/14/23 8:53 AM) Blood pressure sites Arm, left (07/14/23 11:03 AM) Arm, left (07/14/23 9:46 AM) Arm, left (07/14/23 8:53 AM) Temperature Route Oral (07/14/23 11:03 AM) Oral (07/14/23 9:46 AM) Oral (07/14/23 8:53 AM) Dry Weight 76 kg (07/14/23 11:03 AM) 76 kg (07/14/23 8:53 AM) 76 kg (07/14/23 7:47 AM) Weight Obtained Via Patient/family state d (07/14/23 6:04 AM) Dry Weight Obtained Via Patient/family s tated (07/14/23 6:04 AM) Social History Social History Type Response Tobacco Other: pt quit 4mo a go. Sex Female EKG study * Event Display: ECG 12-Lead Authored Date: Please click on pdf link to open report * Event Display: ECG 12-Lead Authored Date: Ventricular Rate: 95 BPM Atrial Rate: 95 BPM P-R Interval: 186 ms QRS Duration: 82 ms Q-T Interval: 372 ms QTC Calculation(Bazett): 467 ms P [place]: 28 degrees R [place]: -17 degrees T [place]: 25 degrees Normal sinus rhythm Minimal voltage criteria for LVH, may be normal variant ( R in aVL ) Possible Anterior infarct , age undetermined Confirmed by MAYCO PEDERSON ([id number]) on 07/14/2023 7:55:10 AM [place]: MAYCO PEDERSON Patient Care team information Care Team Personnel Name: Spencer Ramires Position: Reference Physician Member Role: PCP Address: Address: [address] [place] [id number] Name: Rocio Vasquez RN Position: [facility] RN Member Role: Primary Care Nurse Name: Annette Loera RN Position: [facility] RN Member Role: Primary Care Nurse Name: Loretta Wright RN Position: [facility] RN Member Role: Primary Care Nurse Name: Ann Parham MA Position: [facility] Office Staff Member Role: Primary Care Nurse Name: Layne Montelongo MA Position: [facility] Staff Member Role: Primary Care Nurse [...] Related Persons Name: MITA HAMPTON Address: home [address] [place] [address]
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
== END 2023-07-23 10:38 | disposition home or self-care (01) ==
PROVIDERS: Emergency Provider Emergency Medicine
DX: F10.129 Alcohol abuse with intoxication, unspecified (principal); Y90.6 Blood alcohol level of 120-199 mg/100 ml; I10 Essential (primary) hypertension; E11.9 Type 2 diabetes mellitus without complications; K21.9 Gastro-esophageal reflux disease without esophagitis; Z79.899 Other long term (current) drug therapy
CPT/HCPCS: 36415; 80053; 80307; 81003; 82947; 85025; 99285

== ENCOUNTER 2023-07-27 16:39 | Emergency (ER) | payer OTHER, SELFPAY ==
[2023-07-27 16:53] VITALS: BP 119/73; BP 135/82; PULSE 113; PULSE 120; RESP 14; TEMP 36.9; O2SAT 94; O2SAT 96; BMI 35.4
[2023-07-27 16:57] VITALS: BP 119/73; PULSE 113; RESP 14; TEMP 36.9; O2SAT 96
--- NOTE | 2023-07-27 16:58 | PC.NURSE ---
Neuros are intact at this time. Awaits ED provider
--- NOTE | 2023-07-27 17:02 | ED.GENADULT ---
HPI - General Adult General Chief complaint: General Medical Stated complaint: NUMBNESS IN BOTH LEGS,TINGLING IN ARMS Time Seen by Provider: 07/27/23 16:57 Source: patient Mode of arrival: EMS Limitations: no limitations History of Present Illness ED Provider: cuba OLVERA narrative: Patient diabetic with neuropathy which is going on for long time on gabapentin and pregabalin comes here as feeling numb no weakness as such denies any alcohol use lately Related Data Previous Rx's ?Medication ?Instructions ?Recorded acetaminophen 325 mg tablet 650 mg (2 x 325 mg) PO Q6H PRN 05/22/23 Headache/Pain Mild Scale (1-3) 30 days #60 tabs albuterol sulfate 90 mcg/actuation 1 inh inhalation QID PRN wheezing 05/22/23 aerosol inhaler #6.7 grams aspirin 81 mg chewable tablet 81 mg PO DAILY #30 tabs 05/22/23 atorvastatin 40 mg tablet 40 mg PO BEDTIME 30 days #30 tabs 05/22/23 clonazepam 0.5 mg tablet 0.5 mg PO BID #60 tabs 05/22/23 diclofenac sodium 1 % topical gel 4 g topical QID PRN pain 30 days 05/22/23 #5 grams folic acid 1 mg tablet 1 mg PO DAILY #30 tabs 05/22/23 gabapentin 400 mg capsule 400 mg PO TID #90 caps 05/22/23 guaifenesin 100 mg/5 mL oral liquid 100 mg (5 mL) PO Q4H PRN Cough 30 05/22/23 days #60 mL hydrochlorothiazide 12.5 mg tablet 12.5 mg PO DAILY 30 days #30 tabs 05/22/23 hydroxyzine HCl 25 mg tablet 25 mg PO Q6H PRN Anxiety 30 days 05/22/23 #60 tabs insulin glargine 100 unit/mL (3 15 unit (0.15 mL) subcut DAILY #3 05/22/23 mL) subcutaneous pen mL insulin lispro 100 unit/mL 5 unit (0.05 mL) subcut QIDACHS 05/22/23 subcutaneous solution (Admelog #10 mL U-100 Insulin lispro) insulin lispro 100 unit/mL See Protocol subcut QIDACHS #10 mL 05/22/23 subcutaneous solution (Admelog U-100 Insulin lispro) lisinopril 10 mg tablet 10 mg PO DAILY #30 tabs 05/22/23 melatonin 3 mg tablet 6 mg (2 x 3 mg) PO BEDTIME PRN 05/22/23 Insomnia #60 tabs metoprolol tartrate 25 mg tablet 25 mg PO DAILY #30 tabs 05/22/23 nicotine (polacrilex) 2 mg gum 2 mg buccal Q2H PRN Nicotine 05/22/23 Cravings 30 days #90 ea omeprazole 40 mg capsule,delayed 40 mg PO DAILY@0630 #30 caps 05/22/23 release risperidone 1 mg tablet 1 mg PO BID #30 tabs 05/22/23 thiamine mononitrate (vit B1) 100 100 mg PO DAILY 30 days #30 tabs 05/22/23 mg tablet trazodone 50 mg tablet 50 mg PO BEDTIME PRN Insomnia 30 05/22/23 days #60 tabs loperamide 2 mg tablet (Imodium 2 mg PO Q6H PRN loose stool #14 06/06/23 A-D) tabs Allergies Allergy/AdvReac Type Severity Reaction Status Date / Time bee pollen Allergy Anaphylaxis Verified 07/27/23 16:55 Review of Systems Review of Systems: Yes all other systems are reviewed and are negative [facility] Past Medical History Medical History Vertigo Diabetes HTN (hypertension) GERD (gastroesophageal reflux disease) Social History Social History Household Members: None Housing: Other Housing Other:: Hotel Do you presently have visiting nurse or other home services: Yes Alcohol intake: current Alcohol intake frequency: a few times a week Patient Tobacco Use Status: Former Tobacco user Smoked in Last 30 Days: Yes Use of substances other than those prescribed or required for medical reasons: No Advance Directives: No Advance Directives Information Provided: No Patient : No service: No Sexual orientation: Straight/Heterosexual Physical Exam ED Vital Signs: Vital Signs - 24 hr 07/27/23 16:53 07/27/23 16:57 Temperature 98.4 F 98.4 F Pulse Rate 113 H 113 H Respiratory Rate 14 14 Blood Pressure 119/73 119/73 Pulse Oximetry 96 96 Oxygen Delivery Method Room Air Room Air BMI result Body Mass Index 35.4 Appearance: Alert. Oriented X3. No acute distress. Eyes: PERRLA, No Nystagmus ENT: Pharynx normal. Oral Mucosa moist Neck: Normal inspection. Neck supple. CVS: Normal heart rate and rhythm. Pulses normal. Respiratory: No respiratory distress. Equal air entry bilateral, no wheezing/rales/rhonchi Abdomen: Soft and nontender. Bowel sounds are present, no mass palpable, no CVA tenderness Skin: Skin warm and dry. Normal skin color. Normal skin turgor. Extremities: No lower extremity edema. No calf tenderness Neuro: Oriented X 3. No motor deficit. Decreased sensation to light touch and pinprick DTR 1+.No cerebellar signs , cranial nerves II-XII intact Medical Decision Making Medical Decision Making MDM Narrative: Patient had detailed workup on 07/21 labs were stable with stable comes here for ongoing diabetic neuropathy without any discharge patient home advised to follow with neurologist Discharge Plan Discharge Clinical Impression: Diabetic peripheral neuropathy Patient Disposition: Home, Self-Care Instructions: Diabetic Peripheral Neuropathy (ED) Additional Instructions: Continue gabapentin and pregabalin for your neuropathy Take your multivitamin, and thiamine daily Follow with your PCP and neurologist Prescriptions: No Action acetaminophen 325 mg Tablet 650 mg PO Q6H PRN (Reason: Headache/Pain Mild Scale (1-3)) 30 Days Qty: 60 0RF trazodone 50 mg Tablet 50 mg PO BEDTIME PRN (Reason: Insomnia) 30 Days Qty: 60 0RF nicotine (polacrilex) 2 mg Gum 2 mg buccal Q2H PRN (Reason: Nicotine Cravings) 30 Days Qty: 90 0RF guaifenesin 100 mg/5 mL Liquid 100 mg PO Q4H PRN (Reason: Cough) 30 Days Qty: 60 0RF hydroxyzine HCl 25 mg Tablet 25 mg PO Q6H PRN (Reason: Anxiety) 30 Days Qty: 60 0RF hydrochlorothiazide 12.5 mg Tablet 12.5 mg PO DAILY 30 Days Qty: 30 0RF Protocol: Hold for SBP< HOLD for SBP < : 90 thiamine mononitrate (vit B1) 100 mg Tablet 100 mg PO DAILY 30 Days Qty: 30 0RF atorvastatin 40 mg Tablet 40 mg PO BEDTIME 30 Days Qty: 30 0RF clonazepam 0.5 mg Tablet 0.5 mg PO BID Qty: 60 0RF gabapentin 400 mg Capsule 400 mg PO TID Qty: 90 0RF melatonin 3 mg Tablet 6 mg PO BEDTIME PRN (Reason: Insomnia) Qty: 60 0RF omeprazole 40 mg Capsule,Delayed Release(Dr/Ec) 40 mg PO DAILY@0630 Qty: 30 0RF lisinopril 10 mg Tablet 10 mg PO DAILY Qty: 30 0RF Protocol: Hold for SBP< HOLD for SBP < : 90 aspirin 81 mg Tablet,Chewable 81 mg PO DAILY Qty: 30 0RF folic acid 1 mg Tablet 1 mg PO DAILY Qty: 30 0RF insulin lispro [Admelog U-100 Insulin lispro] 100 unit/mL Solution See Protocol subcut QIDACHS Qty: 10 0RF Protocol: Insulin Correction Scale Less than or equal to 110 ---- Give (units): 0 111 to 150 Give (units): 0 151 to 200 Give (units): 2 201 to 250 Give (units): 4 251 to 300 Give (units): 6 301 to 350 Give (units): 8 Greater than 350 Give (units): 10 Call MD if Blood Glucose > : 350 insulin lispro [Admelog U-100 Insulin lispro] 100 unit/mL Solution 5 unit subcut QIDACHS Qty: 10 0RF albuterol sulfate 90 mcg/actuation HFA aerosol inhaler 1 inh inhalation QID PRN (Reason: wheezing) Qty: 6.7 0RF risperidone 1 mg Tablet 1 mg PO BID Qty: 30 0RF metoprolol tartrate 25 mg Tablet 25 mg PO DAILY Qty: 30 0RF Protocol: Hold for SBP/HR < HOLD for SBP < : 90 HOLD for HR < : 60 insulin glargine 100 unit/mL (3 mL) insulin pen 15 unit subcut DAILY Qty: 3 0RF diclofenac sodium 1 % gel 4 g topical QID PRN (Reason: pain) 30 Days Qty: 5 0RF loperamide [Imodium A-D] 2 mg tablet 2 mg PO Q6H PRN (Reason: loose stool) Qty: 14 0RF Referrals: Libby Frazier MD [Physician] - 2 weeks Print Language: Nigerian
[2023-07-27] MEDS: Gabapentin 300 MG CAPSULE PO (17:47)
[2023-07-27 17:53] VITALS: BP 119/73; PULSE 113; RESP 14; TEMP 36.9; O2SAT 96
== END 2023-07-27 17:55 | disposition home or self-care (01) ==
PROVIDERS: Emergency Provider Internal Medicine
DX: E11.42 Type 2 diabetes mellitus with diabetic polyneuropathy (principal); R20.0 Anesthesia of skin; Z79.899 Other long term (current) drug therapy; Z87.891 Personal history of nicotine dependence
CPT/HCPCS: 99284

== ENCOUNTER 2023-07-27 21:54 | Emergency (ER) | payer OTHER, SELFPAY ==
--- NOTE | 2023-07-27 | ECG_ITS ---
Test Reason : DIZZINESS Blood Pressure : / mmHG Vent. Rate : 105 BPM Atrial Rate : 105 BPM P-R Int : 174 ms QRS Dur : 078 ms QT Int : 350 ms P-R-T Axes : 031 -10 034 degrees QTc Int : 462 ms Sinus tachycardia Minimal voltage criteria for LVH, may be normal variant ( R in aVL ) Possible Anterior infarct (cited on or before 05-JUN-2023) Abnormal ECG When compared with ECG of 05-JUN-2023 22:46, No significant change was found Referred By: Generic ED Physician Electronically Signed By:RAVINDRA MARTINEZ MD
--- NOTE | ~2023-07-27 | CT_ITS ---
EXAMINATION: CT head/brain wo IV con CLINICAL INFORMATION: Reason for Exam dizzy COMPARISON: CT head 04/05/2023 TECHNIQUE: Contiguous axial imaging was performed from the skull base to vertex without intravenous contrast. Sagittal and coronal reformatted images were obtained. This CT examination was performed using dose optimization techniques as appropriate, variously including the following: * Automated exposure control * Adjustment of mA and/or kV according to patient size (this includes techniques or standardized protocols for targeted exams where dose is matched to indication/reason for exam; i.e. extremities or head) Use of iterative reconstruction technique DLP: 609.08 mGy-cm mGy-cm FINDINGS: There is no evidence of acute intracranial hemorrhage. No mass-effect or ventricular shift is noted. No acute, territorial loss of jimenez-white differentiation. Partially empty sella turcica. Calcified focus along the right frontal convexity is indeterminate and may represent an osteoma or partially calcified meningioma. Mild generalized cerebral volume loss with associated ventricular and sulcal prominencePeriventricular and subcortical white matter hypodensity is nonspecific but likely represents chronic microvascular ischemic change. Intracranial atherosclerotic calcification is noted. No depressed calvarial fracture. Partially opacified right ethmoid air cells. The mastoid air cells are clear. CT/CT head/brain wo IV con IMPRESSION: No acute intracranial hemorrhage or territorial loss of jimenez-white differentiation.
[2023-07-27 22:02] VITALS: BP 102/73; PULSE 115; RESP 18; TEMP 37.3; O2SAT 100; BMI 34.6
[2023-07-28 00:04] LABS: Basophils Absolute Auto 0.1 X10*3/uL (0.0-0.2); Basophils Percent Auto 0.6 % (0-2); Eosinophils Absolute Auto 0.3 X10*3/uL (0.0-0.4); Eosinophils Percent Auto 2.2 % (0-4); Hematocrit 35.9 % (37.0-47.0); Hemoglobin 12.5 g/dl (12.0-16.0); Imm Gran Pct Auto 0.7 % (0.0-0.4); Lymphocytes Absolute Auto 5.9 X10*3/uL (1.2-4.9); Lymphocytes Percent Auto 39.8 % (20-40); Mean Corpuscular HGB Conc 34.8 g/dl (31.0-35.0); Mean Corpuscular Hemoglobin 30.1 pg (27.0-33.0); Mean Corpuscular Volume 86.5 fL (80.0-98.0); Mean Platelet Volume 8.3 fL (9.4-12.3); Monocytes Absolute Auto 0.8 X10*3/uL (0.1-1.2); Monocytes Percent Auto 5.4 % (2-11); Neutrophils Absolute Auto 7.6 x10*3/uL (2.0-8.3); Neutrophils Percent Auto 51.3 % (45-73); Platelet Count 384 X10*3/uL (160-400); Red Blood Count 4.15 X10*6/uL (4.20-5.50); Red Cell Distribution Width 13.8 % (11.0-16.0); SCAN SMEAR FLAG 1; White Blood Count 14.7 X10*3/uL (4.8-10.8)
[2023-07-28 00:21] LABS: Alanine Aminotransferase 25 U/L (0-31); Alkaline Phosphatase 88 U/L (39-117); Anion Gap 13 (12-20); Aspartate Amino Transferase 17 U/L (5-31); Bilirubin Direct < 0.2 mg/dL (0.0-0.5); Bilirubin Total 0.2 mg/dL (0.0-1.0); Blood Urea Nitrogen 12 mg/dL (9-16); Calcium 9.4 mg/dL (8.4-10.2); Carbon Dioxide 26 mmol/L (22-29); Chloride 104 mmol/L (96-108); Creatinine Clr Calc Pharmacy 75.6; Estimated Glomerular Filt Rate > 60; Glucose Random 186 mg/dL (60-115); Lipase 54 U/L (8-78); Potassium 4.1 mmol/L (3.3-5.1); Sodium 139 mmol/L (135-145); Total Protein 7.3 g/dL (6.5-8.0)
[2023-07-28 00:23] LABS: MANUAL DIFF FLAG SCAN
[2023-07-28 00:24] LABS: SLIDE REVIEW VERIFIED
[2023-07-28 00:29] LABS: Troponin-I High Sensitivity < 2.7 ng/L (<3.5-17.0)
--- NOTE | 2023-07-28 01:00 | ED_ITS ---
HPI - Dizziness General Chief Complaint: Dizziness Stated Complaint: dizziness/legshurt Time Seen by Provider: 07/28/23 00:40 History of Present Illness HPI Narrative: Patient is a 57-year-old female presents today with having dizziness. Patient was discharged earlier today for numbness to the feet. Patient feels that she has a history of vertigo in the past. It is spinning like. Patient denies any fever chills. Denies any nausea vomiting. Feels her legs are very weak and very numb which is very similar to previous bouts. Patient denies any focal weakness. Denies any chest pain denies any nausea vomiting. The vertigo is worse with movement. Patient from home. Positive history of recreational drug use. Denies any use today. Has a history of diabetes. Related Data Previous Rx's ?Medication ?Instructions ?Recorded acetaminophen 325 mg tablet 650 mg (2 x 325 mg) PO Q6H PRN 05/22/23 Headache/Pain Mild Scale (1-3) 30 days #60 tabs albuterol sulfate 90 mcg/actuation 1 inh inhalation QID PRN wheezing 05/22/23 aerosol inhaler #6.7 grams aspirin 81 mg chewable tablet 81 mg PO DAILY #30 tabs 05/22/23 atorvastatin 40 mg tablet 40 mg PO BEDTIME 30 days #30 tabs 05/22/23 clonazepam 0.5 mg tablet 0.5 mg PO BID #60 tabs 05/22/23 diclofenac sodium 1 % topical gel 4 g topical QID PRN pain 30 days 05/22/23 #5 grams folic acid 1 mg tablet 1 mg PO DAILY #30 tabs 05/22/23 gabapentin 400 mg capsule 400 mg PO TID #90 caps 05/22/23 guaifenesin 100 mg/5 mL oral liquid 100 mg (5 mL) PO Q4H PRN Cough 30 05/22/23 days #60 mL hydrochlorothiazide 12.5 mg tablet 12.5 mg PO DAILY 30 days #30 tabs 05/22/23 hydroxyzine HCl 25 mg tablet 25 mg PO Q6H PRN Anxiety 30 days 05/22/23 #60 tabs insulin glargine 100 unit/mL (3 15 unit (0.15 mL) subcut DAILY #3 05/22/23 mL) subcutaneous pen mL insulin lispro 100 unit/mL 5 unit (0.05 mL) subcut QIDACHS 05/22/23 subcutaneous solution (Admelog #10 mL U-100 Insulin lispro) insulin lispro 100 unit/mL See Protocol subcut QIDACHS #10 mL 05/22/23 subcutaneous solution (Admelog U-100 Insulin lispro) lisinopril 10 mg tablet 10 mg PO DAILY #30 tabs 05/22/23 melatonin 3 mg tablet 6 mg (2 x 3 mg) PO BEDTIME PRN 05/22/23 Insomnia #60 tabs metoprolol tartrate 25 mg tablet 25 mg PO DAILY #30 tabs 05/22/23 nicotine (polacrilex) 2 mg gum 2 mg buccal Q2H PRN Nicotine 05/22/23 Cravings 30 days #90 ea omeprazole 40 mg capsule,delayed 40 mg PO DAILY@30 #30 caps 05/22/23 release risperidone 1 mg tablet 1 mg PO BID #30 tabs 05/22/23 thiamine mononitrate (vit B1) 100 100 mg PO DAILY 30 days #30 tabs 05/22/23 mg tablet trazodone 50 mg tablet 50 mg PO BEDTIME PRN Insomnia 30 05/22/23 days #60 tabs loperamide 2 mg tablet (Imodium 2 mg PO Q6H PRN loose stool #14 06/06/23 A-D) tabs meclizine 25 mg tablet 25 mg PO TID PRN dizziness #14 tabs 07/28/23 Allergies Allergy/AdvReac Type Severity Reaction Status Date / Time bee pollen Allergy Anaphylaxis Verified 07/27/23 22:06 Review of Systems 2 Review of Systems: Positive numbness to the feet Spinning sensation No head injury Yes all other systems are reviewed and are negative [facility] Past Medical History Attestation statement: The following information was validated with the patient. Medical History Vertigo Diabetes HTN (hypertension) GERD (gastroesophageal reflux disease) Social History Social History Household Members: None Housing: Other Housing Other:: Hotel Do you presently have visiting nurse or other home services: Yes Alcohol intake: current Alcohol intake frequency: a few times a week Patient Tobacco Use Status: Former Tobacco user Advance Directives: No Advance Directives Information Provided: Yes Do you have a plan to hurt others: No Plan service: No Sexual orientation: Straight/Heterosexual Physical Exam 2 Vital Signs: Vital Signs: Last Vital Signs Temp 99.2 F 07/27/23 22:02 Pulse 115 H 07/27/23 22:02 Resp 18 07/27/23 22:02 BP 102/73 07/27/23 22:02 Pulse Ox 100 07/27/23 22:02 O2 Del Method Room Air 07/27/23 22:02 BMI result Body Mass Index 34.6 Appearance: Alert. Oriented X3. No acute distress. Eyes: Pupils equal, round and reactive to light. ENT: Pharynx normal. Neck: Normal inspection. Neck supple. No lymph nodes noted. No crepitus CVS: Normal heart rate and rhythm. Pulses normal. Normal S1 and S2 Respiratory: No respiratory distress. Breath sounds normal. No Wheezing. No rales Abdomen: Soft and nontender. No rigidity. No distention. good BS x4 Skin: Skin warm and dry. Normal skin color. Normal skin turgor. Extremities: No lower extremity edema. Neurovascular intact to all extremities. No Lacerations. No Rash Neuro: Oriented X 3. No motor deficit. No sensory deficit. Moving all extermities. No slurred speech Medications Administered Discontinued Medications Generic Name Dose Route Start Last Admin Trade Name Freq PRN Reason Stop Dose Admin Meclizine HCl 25 mg 07/28/23 00:59 07/28/23 01:53 Meclizine Hcl 25 Mg Tablet PO 07/28/23 01:00 25 mg ONCE ONE Administration Medical Decision Making Medical Decision Making [facility] Narrative: Patient ambulated well in the emergency department no acute distress. My interpretation patient's CT scan of the head was grossly negative. Patient's vertigo has been ongoing. Gave patient a dose of Antivert with good success. She ambulated well in the emergency department. My interpretation of her EKG showed a sinus pattern heart rate is 100 LA QRS QTC normal Q-waves over the inferior leads. there has no significant change when compared to previous EKG. Will discharge patient home. Close follow-up on an outpatient basis. Differential Diagnosis Differential Diagnoses: The differential diagnosis associated with the presentation includes Vertigo, intracranial bleed, Admission/Observation Consideration of admission/observation: Escalation of care including admission/observation considered Lab Data [facility] Lab Attestation statement: I reviewed the patient's lab results. 07/27/23 23:54 07/27/23 23:54 Labs: Lab Results 07/27/23 Range/Units 23:54 WBC 14.7 H (4.8-10.8) X10*3/uL RBC 4.15 L (4.20-5.50) X10*6/uL Hgb 12.5 (12.0-16.0) g/dl Hct 35.9 L (37.0-47.0) % MCV 86.5 (80.0-98.0) fL MCH 30.1 (27.0-33.0) pg MCHC 34.8 (31.0-35.0) g/dl RDW 13.8 (11.0-16.0) % Plt Count 384 (160-400) X10*3/uL MPV 8.3 L (9.4-12.3) fL Immature Gran % (Auto) 0.7 H (0.0-0.4) % Neut % (Auto) 51.3 (45-73) % Lymph % (Auto) 39.8 (20-40) % Spink % (Auto) 5.4 (2-11) % Eos % (Auto) 2.2 (0-4) % Baso % (Auto) 0.6 (0-2) % Lymph # (Auto) 5.9 H (1.2-4.9) X10*3/uL Spink # (Auto) 0.8 (0.1-1.2) X10*3/uL Eos # (Auto) 0.3 (0.0-0.4) X10*3/uL Baso # (Auto) 0.1 (0.0-0.2) X10*3/uL Abs Immat Gran (auto) 0.10 H (0.00-0.03) X10*3/uL Absolute Neuts (auto) 7.6 (2.0-8.3) x10*3/uL Absolute Nucleated RBC 0.000 (0.0-0.012) X10*3/uL Nucleated RBC % (auto) 0.0 (0.0-0.2) /100WBC Smear Tech's Comments VERIFIED Sodium 139 (135-145) mmol/L Potassium 4.1 (3.3-5.1) mmol/L Chloride 104 (96-108) mmol/L Carbon Dioxide 26 (22-29) mmol/L Anion Gap 13 (12-20) BUN 12 (9-16) mg/dL Creatinine 0.77 (0.5-1.4) mg/dL Estim Creat Clear Calc 75.6 Estimated GFR > 60 Random Glucose 186 H (60-115) mg/dL Calcium 9.4 (8.4-10.2) mg/dL Total Bilirubin 0.2 (0.0-1.0) mg/dL Direct Bilirubin < 0.2 (0.0-0.5) mg/dL AST 17 (5-31) U/L ALT 25 (0-31) U/L Alkaline Phosphatase 88 (39-117) U/L Troponin I High Sens < 2.7 (<3.5-17.0) ng/L Total Protein 7.3 (6.5-8.0) g/dL Albumin 4.0 (3.5-5.0) g/dL Lipase 54 (8-78) U/L Independent Interpretation I performed an independent interpretation of an: EKG (Sinus heart rate is 100 LA QRS QTC normal there is Q-waves over the inferior leads which is old) and CT Scan (CT scan of the head was grossly negative) Radiology Impression Discussion of test interpretation with radiology: I have reviewed the radiologist's reading. External Record Review External record reviewed: Inpatient record Chronic Conditions Patient?s care impacted by: Diabetes Discharge Plan Discharge Clinical Impression: Vertigo Patient Disposition: Home, Self-Care Instructions: Vertigo (ED) Prescriptions: New meclizine 25 mg tablet 25 mg PO TID PRN (Reason: dizziness) Qty: 14 0RF No Action acetaminophen 325 mg Tablet 650 mg PO Q6H PRN (Reason: Headache/Pain Mild Scale (1-3)) 30 Days Qty: 60 0RF trazodone 50 mg Tablet 50 mg PO BEDTIME PRN (Reason: Insomnia) 30 Days Qty: 60 0RF nicotine (polacrilex) 2 mg Gum 2 mg buccal Q2H PRN (Reason: Nicotine Cravings) 30 Days Qty: 90 0RF guaifenesin 100 mg/5 mL Liquid 100 mg PO Q4H PRN (Reason: Cough) 30 Days Qty: 60 0RF hydroxyzine HCl 25 mg Tablet 25 mg PO Q6H PRN (Reason: Anxiety) 30 Days Qty: 60 0RF hydrochlorothiazide 12.5 mg Tablet 12.5 mg PO DAILY 30 Days Qty: 30 0RF Protocol: Hold for SBP< HOLD for SBP < : 90 thiamine mononitrate (vit B1) 100 mg Tablet 100 mg PO DAILY 30 Days Qty: 30 0RF atorvastatin 40 mg Tablet 40 mg PO BEDTIME 30 Days Qty: 30 0RF clonazepam 0.5 mg Tablet 0.5 mg PO BID Qty: 60 0RF gabapentin 400 mg Capsule 400 mg PO TID Qty: 90 0RF melatonin 3 mg Tablet 6 mg PO BEDTIME PRN (Reason: Insomnia) Qty: 60 0RF omeprazole 40 mg Capsule,Delayed Release(Dr/Ec) 40 mg PO DAILY@0630 Qty: 30 0RF lisinopril 10 mg Tablet 10 mg PO DAILY Qty: 30 0RF Protocol: Hold for SBP< HOLD for SBP < : 90 aspirin 81 mg Tablet,Chewable 81 mg PO DAILY Qty: 30 0RF folic acid 1 mg Tablet 1 mg PO DAILY Qty: 30 0RF insulin lispro [Admelog U-100 Insulin lispro] 100 unit/mL Solution See Protocol subcut QIDACHS Qty: 10 0RF Protocol: Insulin Correction Scale Less than or equal to 110 ---- Give (units): 0 111 to 150 Give (units): 0 151 to 200 Give (units): 2 201 to 250 Give (units): 4 251 to 300 Give (units): 6 301 to 350 Give (units): 8 Greater than 350 Give (units): 10 Call MD if Blood Glucose > : 350 insulin lispro [Admelog U-100 Insulin lispro] 100 unit/mL Solution 5 unit subcut QIDACHS Qty: 10 0RF albuterol sulfate 90 mcg/actuation HFA aerosol inhaler 1 inh inhalation QID PRN (Reason: wheezing) Qty: 6.7 0RF risperidone 1 mg Tablet 1 mg PO BID Qty: 30 0RF metoprolol tartrate 25 mg Tablet 25 mg PO DAILY Qty: 30 0RF Protocol: Hold for SBP/HR < HOLD for SBP < : 90 HOLD for HR < : 60 insulin glargine 100 unit/mL (3 mL) insulin pen 15 unit subcut DAILY Qty: 3 0RF diclofenac sodium 1 % gel 4 g topical QID PRN (Reason: pain) 30 Days Qty: 5 0RF loperamide [Imodium A-D] 2 mg tablet 2 mg PO Q6H PRN (Reason: loose stool) Qty: 14 0RF Referrals: Physician,Unknown J [Primary Care Provider] - 08/02/23 Print Language: Togolese
[2023-07-28] MEDS: Meclizine HCl 25 MG TABLET PO (01:53)
[2023-07-28 04:35] VITALS: BP 102/73; PULSE 115; RESP 18; TEMP 37.3; O2SAT 100
== END 2023-07-28 04:37 | disposition home or self-care (01) ==
PROVIDERS: Emergency Provider Emergency Medicine Emergency Medical Services
DX: R42 Dizziness and giddiness (principal); R00.0 Tachycardia, unspecified; Z79.899 Other long term (current) drug therapy
CPT/HCPCS: 36415; 70450; 80048; 80076; 83690; 84484; 85025; 93005; 99284

== ENCOUNTER → 2023-07-27 23:28 | Outpatient (BNV) | payer OTHER, SELFPAY | PROVIDERS: Emergency Provider Emergency Medicine Emergency Medical Services; Visit Provider Internal Medicine Cardiovascular Disease | DX: R94.31 Abnormal electrocardiogram [ECG] [EKG] (principal) | CPT/HCPCS: 93010 ==

== ENCOUNTER 2023-08-11 21:56 | Emergency (ER) | payer OTHER, SELFPAY ==
[2023-08-11 22:07] VITALS: BP 100/62; BP 96/60; PULSE 84; PULSE 99; RESP 17; TEMP 37; O2SAT 99; BMI 34.4
[2023-08-11 22:09] LABS: Glucose, Whole Blood 385 mg/dL (60-115)
--- NOTE | 2023-08-11 22:24 | ED_ITS ---
HPI - General Adult General Chief complaint: General Medical Stated complaint: AMS, headache, neuropathy in legs hyerglycemic Time Seen by Provider: 08/11/23 22:20 Source: patient Mode of arrival: EMS Limitations: no limitations History of Present Illness ED Provider: cuba OLVERA narrative: Patient diabetic with history of alcohol and cocaine abuse was at [employer] patient acted confused when police came after arrival patient back to normal denied any active complaints missed her Lantus and Humalog in the evening POC was 385 Related Data Previous Rx's ?Medication ?Instructions ?Recorded acetaminophen 325 mg tablet 650 mg (2 x 325 mg) PO Q6H PRN 05/22/23 Headache/Pain Mild Scale (1-3) 30 days #60 tabs albuterol sulfate 90 mcg/actuation 1 inh inhalation QID PRN wheezing 05/22/23 aerosol inhaler #6.7 grams aspirin 81 mg chewable tablet 81 mg PO DAILY #30 tabs 05/22/23 atorvastatin 40 mg tablet 40 mg PO BEDTIME 30 days #30 tabs 05/22/23 clonazepam 0.5 mg tablet 0.5 mg PO BID #60 tabs 05/22/23 diclofenac sodium 1 % topical gel 4 g topical QID PRN pain 30 days 05/22/23 #5 grams folic acid 1 mg tablet 1 mg PO DAILY #30 tabs 05/22/23 gabapentin 400 mg capsule 400 mg PO TID #90 caps 05/22/23 guaifenesin 100 mg/5 mL oral liquid 100 mg (5 mL) PO Q4H PRN Cough 30 05/22/23 days #60 mL hydrochlorothiazide 12.5 mg tablet 12.5 mg PO DAILY 30 days #30 tabs 05/22/23 hydroxyzine HCl 25 mg tablet 25 mg PO Q6H PRN Anxiety 30 days 05/22/23 #60 tabs insulin glargine 100 unit/mL (3 15 unit (0.15 mL) subcut DAILY #3 05/22/23 mL) subcutaneous pen mL insulin lispro 100 unit/mL 5 unit (0.05 mL) subcut QIDACHS 05/22/23 subcutaneous solution (Admelog #10 mL U-100 Insulin lispro) insulin lispro 100 unit/mL See Protocol subcut QIDACHS #10 mL 05/22/23 subcutaneous solution (Admelog U-100 Insulin lispro) lisinopril 10 mg tablet 10 mg PO DAILY #30 tabs 05/22/23 melatonin 3 mg tablet 6 mg (2 x 3 mg) PO BEDTIME PRN 05/22/23 Insomnia #60 tabs metoprolol tartrate 25 mg tablet 25 mg PO DAILY #30 tabs 05/22/23 nicotine (polacrilex) 2 mg gum 2 mg buccal Q2H PRN Nicotine 05/22/23 Cravings 30 days #90 ea omeprazole 40 mg capsule,delayed 40 mg PO DAILY@0630 #30 caps 05/22/23 release risperidone 1 mg tablet 1 mg PO BID #30 tabs 05/22/23 thiamine mononitrate (vit B1) 100 100 mg PO DAILY 30 days #30 tabs 05/22/23 mg tablet trazodone 50 mg tablet 50 mg PO BEDTIME PRN Insomnia 30 05/22/23 days #60 tabs loperamide 2 mg tablet (Imodium 2 mg PO Q6H PRN loose stool #14 06/06/23 A-D) tabs meclizine 25 mg tablet 25 mg PO TID PRN dizziness #14 tabs 07/28/23 Allergies Allergy/AdvReac Type Severity Reaction Status Date / Time bee pollen Allergy Anaphylaxis Verified 08/11/23 22:09 Review of Systems Review of Systems: Yes all other systems are reviewed and are negative [facility] Past Medical History Medical History Vertigo Diabetes HTN (hypertension) GERD (gastroesophageal reflux disease) Social History Social History Household Members: None Housing: Other Housing Other:: Hotel Do you presently have visiting nurse or other home services: Yes Alcohol intake: current Alcohol intake frequency: a few times a week Patient Tobacco Use Status: Former Tobacco user Advance Directives: No Advance Directives Information Provided: No Do you have a plan to hurt others: No Plan service: No Sexual orientation: Straight/Heterosexual Physical Exam ED Vital Signs: Vital Signs - 24 hr 08/11/23 22:07 Temperature 98.6 F Pulse Rate 99 Respiratory Rate 17 Blood Pressure 100/62 Pulse Oximetry 99 Oxygen Delivery Method Room Air BMI result Body Mass Index 34.4 Appearance: Alert. Oriented X3. No acute distress. Eyes: No pallor or icterus ENT: Pharynx normal. Oral Mucosa moist Neck: Normal inspection. Neck supple. CVS: Normal heart rate and rhythm. Pulses normal. Respiratory: No respiratory distress. Equal air entry bilateral, no wheezing/rales/rhonchi Abdomen: Soft and nontender. Bowel sounds are present, no mass palpable, no CVA tenderness Skin: Skin warm and dry. Normal skin color. Normal skin turgor. Extremities: No lower extremity edema. No calf tenderness Neuro: Oriented X 3. No motor deficit. No sensory deficit.No cerebellar signs , cranial nerves II-XII intact Medical Decision Making Medical Decision Making [facility] Narrative: Patient with polysubstance abuse came here as caught by police for shoplifting noted to have blood sugar of 385 she does not have the insulin will be picking up from the pharmacy tomorrow patient was given Humalog and Lantus insulin for the night will discharge patient advised to follow up with PCP and take medication on regular basis Lab Data [facility] Lab Attestation statement: I reviewed the patient's lab results. Labs: Lab Results 08/11/23 Range/Units 22:05 POC Glucose 385 H* (60-115) mg/dL Discharge Plan Discharge Clinical Impression: Mood disorder, Alcohol use disorder, Cocaine use disorder Patient Disposition: Home, Self-Care Instructions: Polysubstance Abuse (ED) Additional Instructions: Stop drinking alcohol and taking cocaine follow up with detox Prescriptions: No Action meclizine 25 mg tablet 25 mg PO TID PRN (Reason: dizziness) Qty: 14 0RF acetaminophen 325 mg Tablet 650 mg PO Q6H PRN (Reason: Headache/Pain Mild Scale (1-3)) 30 Days Qty: 60 0RF trazodone 50 mg Tablet 50 mg PO BEDTIME PRN (Reason: Insomnia) 30 Days Qty: 60 0RF nicotine (polacrilex) 2 mg Gum 2 mg buccal Q2H PRN (Reason: Nicotine Cravings) 30 Days Qty: 90 0RF guaifenesin 100 mg/5 mL Liquid 100 mg PO Q4H PRN (Reason: Cough) 30 Days Qty: 60 0RF hydroxyzine HCl 25 mg Tablet 25 mg PO Q6H PRN (Reason: Anxiety) 30 Days Qty: 60 0RF hydrochlorothiazide 12.5 mg Tablet 12.5 mg PO DAILY 30 Days Qty: 30 0RF Protocol: Hold for SBP< HOLD for SBP < : 90 thiamine mononitrate (vit B1) 100 mg Tablet 100 mg PO DAILY 30 Days Qty: 30 0RF atorvastatin 40 mg Tablet 40 mg PO BEDTIME 30 Days Qty: 30 0RF clonazepam 0.5 mg Tablet 0.5 mg PO BID Qty: 60 0RF gabapentin 400 mg Capsule 400 mg PO TID Qty: 90 0RF melatonin 3 mg Tablet 6 mg PO BEDTIME PRN (Reason: Insomnia) Qty: 60 0RF omeprazole 40 mg Capsule,Delayed Release(Dr/Ec) 40 mg PO DAILY@0630 Qty: 30 0RF lisinopril 10 mg Tablet 10 mg PO DAILY Qty: 30 0RF Protocol: Hold for SBP< HOLD for SBP < : 90 aspirin 81 mg Tablet,Chewable 81 mg PO DAILY Qty: 30 0RF folic acid 1 mg Tablet 1 mg PO DAILY Qty: 30 0RF insulin lispro [Admelog U-100 Insulin lispro] 100 unit/mL Solution See Protocol subcut QIDACHS Qty: 10 0RF Protocol: Insulin Correction Scale Less than or equal to 110 ---- Give (units): 0 111 to 150 Give (units): 0 151 to 200 Give (units): 2 201 to 250 Give (units): 4 251 to 300 Give (units): 6 301 to 350 Give (units): 8 Greater than 350 Give (units): 10 Call MD if Blood Glucose > : 350 insulin lispro [Admelog U-100 Insulin lispro] 100 unit/mL Solution 5 unit subcut QIDACHS Qty: 10 0RF albuterol sulfate 90 mcg/actuation HFA aerosol inhaler 1 inh inhalation QID PRN (Reason: wheezing) Qty: 6.7 0RF risperidone 1 mg Tablet 1 mg PO BID Qty: 30 0RF metoprolol tartrate 25 mg Tablet 25 mg PO DAILY Qty: 30 0RF Protocol: Hold for SBP/HR < HOLD for SBP < : 90 HOLD for HR < : 60 insulin glargine 100 unit/mL (3 mL) insulin pen 15 unit subcut DAILY Qty: 3 0RF diclofenac sodium 1 % gel 4 g topical QID PRN (Reason: pain) 30 Days Qty: 5 0RF loperamide [Imodium A-D] 2 mg tablet 2 mg PO Q6H PRN (Reason: loose stool) Qty: 14 0RF Print Language: Belgian
[2023-08-11] MEDS: Insulin Glargine,Hum.rec.anlog 100 UNIT/ML 10 ML VIAL 15 UNIT SUBCUT (23:01)
[2023-08-11] MEDS: Insulin Lispro 100 UNIT/ML 3 ML VIAL 12 UNIT SUBCUT (23:02)
[2023-08-11 23:31] LABS: Glucose, Whole Blood 257 mg/dL (60-115)
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
[2023-08-11 23:54] VITALS: BP 100/62; PULSE 99; RESP 17; TEMP 37; O2SAT 99
== END 2023-08-11 23:54 | disposition home or self-care (01) ==
PROVIDERS: Emergency Provider Internal Medicine
DX: R41.82 Altered mental status, unspecified (principal); F14.10 Cocaine abuse, uncomplicated; R51.9 Headache, unspecified; Z79.899 Other long term (current) drug therapy
CPT/HCPCS: 82947; 99282

== ENCOUNTER 2023-08-12 03:01 | Inpatient (IN) | payer OTHER, SELFPAY ==
--- NOTE | 2023-08-12 | ECG_ITS ---
Test Reason : CHEST PAIN Blood Pressure : / mmHG Vent. Rate : 096 BPM Atrial Rate : 096 BPM P-R Int : 192 ms QRS Dur : 084 ms QT Int : 360 ms P-R-T Axes : 033 -16 012 degrees QTc Int : 454 ms Normal sinus rhythm Minimal voltage criteria for LVH, may be normal variant ( R in aVL ) Inferior infarct , age undetermined Anterior infarct (cited on or before 05-JUN-2023) Abnormal ECG When compared with ECG of 27-JUL-2023 23:28, Inferior infarct is now Present Referred By: Jose L Bettencourt Electronically Signed By:Yariel Streeter
[2023-08-12 03:17] VITALS: BP 108/65; PULSE 120; RESP 18; TEMP 37.1; O2SAT 99; BMI 34.4
[2023-08-12 03:49] LABS: Glucose, Whole Blood 147 mg/dL (60-115)
--- NOTE | 2023-08-12 04:03 | ED_ITS ---
HPI - Psych General Chief Complaint: Psychiatric Symptoms Stated Complaint: dizzy from diabetes Time Seen by Provider: 08/12/23 04:03 History of Present Illness ED Provider: cuba OLVERA Narrative: Patient is 57 years old with history of diabetes hypertension schizoaffective disorder alcohol use disorder were just seen earlier when she came as police picked her up from [facility] for shoplifting. Patient was found walking outside the [facility] billing stealing stuff from the hospital with disorganized thoughts , denies SI but reports [place] wanted to kill her brother homeless trying to eat raw arroyo has not taken her medication for last few days Related Data Home Medications ?Medication ?Instructions ?Recorded ?Confirmed cyanocobalamin (vitamin B-12) 500 500 mcg PO DAILY 08/12/23 08/12/23 mcg tablet gabapentin 400 mg capsule 400 mg PO TID 08/12/23 08/12/23 risperidone 1 mg tablet 1 mg PO BID 08/12/23 08/12/23 Previous Rx's ?Medication ?Instructions ?Recorded acetaminophen 325 mg tablet 650 mg (2 x 325 mg) PO Q6H PRN 05/22/23 Headache/Pain Mild Scale (1-3) 30 days #60 tabs albuterol sulfate 90 mcg/actuation 1 inh inhalation QID PRN wheezing 05/22/23 aerosol inhaler #6.7 grams aspirin 81 mg chewable tablet 81 mg PO DAILY #30 tabs 05/22/23 atorvastatin 40 mg tablet 40 mg PO BEDTIME 30 days #30 tabs 05/22/23 clonazepam 0.5 mg tablet 0.5 mg PO BID #60 tabs 05/22/23 diclofenac sodium 1 % topical gel 4 g topical QID PRN pain 30 days 05/22/23 #5 grams folic acid 1 mg tablet 1 mg PO DAILY #30 tabs 05/22/23 gabapentin 400 mg capsule 400 mg PO TID #90 caps 05/22/23 guaifenesin 100 mg/5 mL oral liquid 100 mg (5 mL) PO Q4H PRN Cough 30 05/22/23 days #60 mL hydrochlorothiazide 12.5 mg tablet 12.5 mg PO DAILY 30 days #30 tabs 05/22/23 hydroxyzine HCl 25 mg tablet 25 mg PO Q6H PRN Anxiety 30 days 05/22/23 #60 tabs insulin glargine 100 unit/mL (3 15 unit (0.15 mL) subcut DAILY #3 05/22/23 mL) subcutaneous pen mL insulin lispro 100 unit/mL See Protocol subcut QIDACHS #10 mL 05/22/23 subcutaneous solution (Admelog U-100 Insulin lispro) lisinopril 10 mg tablet 10 mg PO DAILY #30 tabs 05/22/23 melatonin 3 mg tablet 6 mg (2 x 3 mg) PO BEDTIME PRN 05/22/23 Insomnia #60 tabs metoprolol tartrate 25 mg tablet 25 mg PO DAILY #30 tabs 05/22/23 nicotine (polacrilex) 2 mg gum 2 mg buccal Q2H PRN Nicotine 05/22/23 Cravings 30 days #90 ea omeprazole 40 mg capsule,delayed 40 mg PO DAILY@30 #30 caps 05/22/23 release thiamine mononitrate (vit B1) 100 100 mg PO DAILY 30 days #30 tabs 05/22/23 mg tablet trazodone 50 mg tablet 50 mg PO BEDTIME PRN Insomnia 30 05/22/23 days #60 tabs loperamide 2 mg tablet (Imodium 2 mg PO Q6H PRN loose stool #14 06/06/23 A-D) tabs meclizine 25 mg tablet 25 mg PO TID PRN dizziness #14 tabs 07/28/23 Allergies Allergy/AdvReac Type Severity Reaction Status Date / Time bee pollen Allergy Anaphylaxis Verified 08/12/23 03:20 Review of Systems 2 Review of Systems: Yes Unobtainable due to mental condition [facility] Past Medical History Medical History Vertigo Diabetes HTN (hypertension) GERD (gastroesophageal reflux disease) Social History Social History Household Members: None Housing: Other Housing Other:: Hotel Do you presently have visiting nurse or other home services: Yes Alcohol intake: current Alcohol intake frequency: a few times a week Patient Tobacco Use Status: Former Tobacco user Advance Directives: No Advance Directives Information Provided: Yes Do you have a plan to hurt others: No Plan service: No Sexual orientation: Straight/Heterosexual Physical Exam 2 Vital Signs: Vital Signs: Last Vital Signs Temp 98.7 F 08/12/23 03:17 Pulse 120 H 06/22/24 03:17 Resp 18 08/12/23 03:17 BP 108/65 08/12/23 03:17 Pulse Ox 99 08/12/23 03:17 O2 Del Method Room Air 08/12/23 03:17 BMI result Body Mass Index 34.4 Appearance: Alert. Oriented . No acute distress. Eyes: PERRLA, No Nystagmus ENT: Pharynx normal. Oral Mucosa moist Neck: Normal inspection. Neck supple. CVS: Normal heart rate and rhythm. Pulses normal. Respiratory: No respiratory distress. Equal air entry bilateral, no wheezing/rales/rhonchi Abdomen: Soft and nontender. Bowel sounds are present, no mass palpable, no CVA tenderness Skin: Skin warm and dry. Normal skin color. Normal skin turgor. Extremities: No lower extremity edema. No calf tenderness psych: Denies SI feel HI, unorganized thoughts Neuro: Oriented X 3. No motor deficit. No sensory deficit.No cerebellar signs , cranial nerves II-XII intact Medications Administered Discontinued Medications Generic Name Dose Route Start Last Admin Trade Name Tennille PRN Reason Stop Dose Admin Lorazepam 2 mg 08/12/23 05:45 08/12/23 05:55 Lorazepam 1 Mg Tablet PO 08/12/23 05:46 2 mg ONCE ONE Administration Medical Decision Making Medical Decision Making [facility] Narrative: Patient has significant psychological issues noncompliant to medication will be seen by care team Lab Data [facility] Lab Attestation statement: I reviewed the patient's lab results. 08/12/23 04:13 08/12/23 04:13 Labs: Lab Results 08/12/23 08/12/23 08/12/23 Range/Units 03:11 04:13 04:25 WBC 11.7 H (4.8-10.8) X10*3/uL RBC 4.02 L (4.20-5.50) X10*6/uL Hgb 12.2 (12.0-16.0) g/dl Hct 34.6 L (37.0-47.0) % MCV 86.1 (80.0-98.0) fL MCH 30.3 (27.0-33.0) pg MCHC 35.3 H (31.0-35.0) g/dl RDW 14.4 (11.0-16.0) % Plt Count 388 (160-400) X10*3/uL MPV 8.7 L (9.4-12.3) fL Immature Gran % (Auto) 0.5 H (0.0-0.4) % Neut % (Auto) 60.7 (45-73) % Lymph % (Auto) 28.9 (20-40) % [place] % (Auto) 7.5 (2-11) % Eos % (Auto) 1.9 (0-4) % Baso % (Auto) 0.5 (0-2) % Lymph # (Auto) 3.4 (1.2-4.9) X10*3/uL [place] # (Auto) 0.9 (0.1-1.2) X10*3/uL Eos # (Auto) 0.2 (0.0-0.4) X10*3/uL Baso # (Auto) 0.1 (0.0-0.2) X10*3/uL Abs Immat Gran (auto) 0.06 H (0.00-0.03) X10*3/uL Absolute Neuts (auto) 7.1 (2.0-8.3) x10*3/uL Absolute Nucleated RBC 0.000 (0.0-0.012) X10*3/uL Nucleated RBC % (auto) 0.0 (0.0-0.2) /100WBC Sodium 138 (135-145) mmol/L Potassium 4.0 (3.3-5.1) mmol/L Chloride 106 (96-108) mmol/L Carbon Dioxide 20 L (22-29) mmol/L Anion Gap 16 (12-20) BUN 30 H (9-16) mg/dL Creatinine 1.10 (0.5-1.4) mg/dL Estim Creat Clear Calc 52.7 Estimated GFR 51 POC Glucose 147 H (60-115) mg/dL Random Glucose 156 H (60-115) mg/dL Calcium 9.6 (8.4-10.2) mg/dL Total Bilirubin 0.2 (0.0-1.0) mg/dL AST 19 (5-31) U/L ALT 27 (0-31) U/L Alkaline Phosphatase 91 (39-117) U/L Total Protein 7.3 (6.5-8.0) g/dL Albumin 3.9 (3.5-5.0) g/dL Lipase 88 H (8-78) U/L Urine Color Yellow Urine Appearance Clear Urine pH 5.0 (5.0-9.0) Ur Specific [place] >= 1.030 H (1.005-1.025) Urine Protein Negative (Neg-Trace) mg/dL Urine Glucose (UA) Negative (Negative) mg/dL Urine Ketones Trace (Negative) mg/dL Urine Blood Negative (Negative) Urine Nitrite Negative (Negative) Ur Leukocyte Esterase Moderate (2+) H (Negative) Urine RBC 0-2 (0-2) /HPF Urine WBC 6-10 H (0-5) /HPF Ur Squamous Epith Cells 3-5 (0-2) /HPF Urine Bacteria Trace (None Seen) Hyaline Casts 3-5 (0-2) /LPF Urine Opiates Screen Not Detected (Not Detect) Ur Buprenorphine Scrn Not Detected (Not Detect) ng/mL Ur Oxycodone Screen Not Detected (Not Detect) ng/mL Urine Methadone Screen Not Detected (Not Detect) ng/mL Urine Fentanyl Screen Not Detected (Not Detect) Ur Barbiturates Screen Not Detected (Not Detect) Ur Phencyclidine Scrn Not Detected (Not Detect) Ur Amphetamines Screen Not Detected (Not Detect) U Benzodiazepines Scrn Not Detected (Not Detect) Urine Cocaine Screen Not Detected (Not Detect) U Marijuana (THC) Screen Not Detected (Not Detect) Ethyl Alcohol < 10 mg/dL Discharge Plan Discharge Clinical Impression: Schizoaffective disorder Patient Disposition: Still a Patient Prescriptions: No Action meclizine 25 mg tablet 25 mg PO TID PRN (Reason: dizziness) Qty: 14 0RF acetaminophen 325 mg Tablet 650 mg PO Q6H PRN (Reason: Headache/Pain Mild Scale (1-3)) 30 Days Qty: 60 0RF trazodone 50 mg Tablet 50 mg PO BEDTIME PRN (Reason: Insomnia) 30 Days Qty: 60 0RF nicotine (polacrilex) 2 mg Gum 2 mg buccal Q2H PRN (Reason: Nicotine Cravings) 30 Days Qty: 90 0RF guaifenesin 100 mg/5 mL Liquid 100 mg PO Q4H PRN (Reason: Cough) 30 Days Qty: 60 0RF hydroxyzine HCl 25 mg Tablet 25 mg PO Q6H PRN (Reason: Anxiety) 30 Days Qty: 60 0RF hydrochlorothiazide 12.5 mg Tablet 12.5 mg PO DAILY 30 Days Qty: 30 0RF Protocol: Hold for SBP< HOLD for SBP < : 90 thiamine mononitrate (vit B1) 100 mg Tablet 100 mg PO DAILY 30 Days Qty: 30 0RF atorvastatin 40 mg Tablet 40 mg PO BEDTIME 30 Days Qty: 30 0RF clonazepam 0.5 mg Tablet 0.5 mg PO BID Qty: 60 0RF gabapentin 400 mg Capsule 400 mg PO TID Qty: 90 0RF melatonin 3 mg Tablet 6 mg PO BEDTIME PRN (Reason: Insomnia) Qty: 60 0RF omeprazole 40 mg Capsule,Delayed Release(Dr/Ec) 40 mg PO DAILY@0630 Qty: 30 0RF lisinopril 10 mg Tablet 10 mg PO DAILY Qty: 30 0RF Protocol: Hold for SBP< HOLD for SBP < : 90 aspirin 81 mg Tablet,Chewable 81 mg PO DAILY Qty: 30 0RF folic acid 1 mg Tablet 1 mg PO DAILY Qty: 30 0RF insulin lispro [Admelog U-100 Insulin lispro] 100 unit/mL Solution See Protocol subcut QIDACHS Qty: 10 0RF Protocol: Insulin Correction Scale Less than or equal to 110 ---- Give (units): 0 111 to 150 Give (units): 0 151 to 200 Give (units): 2 201 to 250 Give (units): 4 251 to 300 Give (units): 6 301 to 350 Give (units): 8 Greater than 350 Give (units): 10 Call MD if Blood Glucose > : 350 albuterol sulfate 90 mcg/actuation HFA aerosol inhaler 1 inh inhalation QID PRN (Reason: wheezing) Qty: 6.7 0RF metoprolol tartrate 25 mg Tablet 25 mg PO DAILY Qty: 30 0RF Protocol: Hold for SBP/HR < HOLD for SBP < : 90 HOLD for HR < : 60 insulin glargine 100 unit/mL (3 mL) insulin pen 15 unit subcut DAILY Qty: 3 0RF diclofenac sodium 1 % gel 4 g topical QID PRN (Reason: pain) 30 Days Qty: 5 0RF loperamide [Imodium A-D] 2 mg tablet 2 mg PO Q6H PRN (Reason: loose stool) Qty: 14 0RF gabapentin 400 mg capsule 400 mg PO TID cyanocobalamin (vitamin B-12) 500 mcg tablet 500 mcg PO DAILY risperidone 1 mg tablet 1 mg PO BID Print Language: Albanian
[2023-08-12 04:21] LABS: MANUAL DIFF FLAG NO
[2023-08-12 04:25] LABS: Basophils Absolute Auto 0.1 X10*3/uL (0.0-0.2); Basophils Percent Auto 0.5 % (0-2); Eosinophils Absolute Auto 0.2 X10*3/uL (0.0-0.4); Eosinophils Percent Auto 1.9 % (0-4); Hematocrit 34.6 % (37.0-47.0); Hemoglobin 12.2 g/dl (12.0-16.0); Imm Gran Abs Auto 0.06 X10*3/uL (0.00-0.03); Imm Gran Pct Auto 0.5 % (0.0-0.4); Lymphocytes Absolute Auto 3.4 X10*3/uL (1.2-4.9); Lymphocytes Percent Auto 28.9 % (20-40); Mean Corpuscular HGB Conc 35.3 g/dl (31.0-35.0); Mean Corpuscular Hemoglobin 30.3 pg (27.0-33.0); Mean Corpuscular Volume 86.1 fL (80.0-98.0); Mean Platelet Volume 8.7 fL (9.4-12.3); Monocytes Absolute Auto 0.9 X10*3/uL (0.1-1.2); Monocytes Percent Auto 7.5 % (2-11); Neutrophils Absolute Auto 7.1 x10*3/uL (2.0-8.3); Neutrophils Percent Auto 60.7 % (45-73); Platelet Count 388 X10*3/uL (160-400); Red Blood Count 4.02 X10*6/uL (4.20-5.50); Red Cell Distribution Width 14.4 % (11.0-16.0); White Blood Count 11.7 X10*3/uL (4.8-10.8)
[2023-08-12 04:31] LABS: Appearance Urine Clear; Color Urine Yellow; Glucose Urine UA Negative (Negative); Leukocyte Esterase Urine Moderate (2+) (Negative); Nitrite Urine Negative (Negative); Specific Gravity - Urine >= 1.030 (1.005-1.025); UMIC TRIGGER UACC YES; Urine Blood Negative (Negative); Urine Ketones Trace mg/dL (Negative); Urine Protein Negative (Neg-Trace)
[2023-08-12 04:36] LABS: Bacteria Urine Trace (None Seen); RBC Urine 0-2 /HPF (0-2); UACC Culture Trigger YES
[2023-08-12 04:41] LABS: Amphetamine Screen Urine Not Detected (Not Detect); Barbiturates, Urine Not Detected (Not Detect); Benzodiazepines Screen Urine Not Detected (Not Detect); Buprenorphine Scr Not Detected (Not Detect); Cannabinoid Screen Urine Not Detected (Not Detect); Cocaine Screen Urine Not Detected (Not Detect); Fentanyl, urine Not Detected (Not Detect); Methadone Screen, Urine Not Detected (Not Detect); Opiate Screen Urine Not Detected (Not Detect); Oxycodone Screen Urine Not Detected (Not Detect); Phencyclidine Screen Urine Not Detected (Not Detect)
[2023-08-12 04:43] LABS: Alanine Aminotransferase 27 U/L (0-31); Albumin Level 3.9 g/dL (3.5-5.0); Alkaline Phosphatase 91 U/L (39-117); Anion Gap 16 (12-20); Aspartate Amino Transferase 19 U/L (5-31); Bilirubin Total 0.2 mg/dL (0.0-1.0); Blood Urea Nitrogen 30 mg/dL (9-16); Calcium 9.6 mg/dL (8.4-10.2); Carbon Dioxide 20 mmol/L (22-29); Chloride 106 mmol/L (96-108); Creatinine Clr Calc Pharmacy 52.7; Estimated Glomerular Filt Rate 51; Ethanol < 10 mg/dL; Glucose Random 156 mg/dL (60-115); Lipase 88 U/L (8-78); Sodium 138 mmol/L (135-145); Total Protein 7.3 g/dL (6.5-8.0)
[2023-08-12] MEDS: LORazepam 1 MG TABLET 2 MG PO (05:55)
--- NOTE | 2023-08-12 07:07 | PC.NURSE ---
Assumed care of patient at 0645. Patient is observed resting quietly in their bed. No unsafe behaviors observed at this time. No signs of distress observed, breathing is even and unlabored.
--- NOTE | 2023-08-12 07:09 | PC.NURSE ---
Patient slept through the night, no distress observed/reported, med rec completed/pending provider's approval, awaiting care team assessment, VSS, will continue to monitor
--- NOTE | 2023-08-12 08:28 | PHA.MEDREC ---
Pharmacy Consult ? Medication Reconciliation Pharmacy has completed the medication reconciliation. Med rec was done by RN overnight. RPH overlooked list, added some recent claims that were missed. OF NOTE: patient consistently picks up BOTH gabapentin and pregabalin
[2023-08-12 08:49] VITALS: BP 127/74; PULSE 89; RESP 16; TEMP 36.6; O2SAT 100
[2023-08-12] MEDS: Acetaminophen 325 MG TABLET 650 MG PO ×2 (09:03→15:09)
[2023-08-12] MEDS: hydroCHLOROthiazide 12.5 MG TABLET PO (09:04)
[2023-08-12] MEDS: Omeprazole 40 MG CAPSULE.DR PO (09:04)
[2023-08-12] MEDS: Gabapentin 400 MG CAPSULE PO ×3 (09:04→20:29)
[2023-08-12] MEDS: Atorvastatin Calcium 40 MG TABLET PO ×2 (09:04→20:29)
[2023-08-12] MEDS: Metoprolol Tartrate 25 MG TABLET PO (09:04)
[2023-08-12] MEDS: Aspirin 81 MG TAB.CHEW PO (09:05)
[2023-08-12] MEDS: lisinopriL 10 MG TABLET PO (09:05)
[2023-08-12] MEDS: Folic Acid 1 MG TABLET PO (09:05)
[2023-08-12] MEDS: risperiDONE 1 MG TABLET PO ×2 (09:05→20:29)
[2023-08-12] MEDS: clonazePAM 0.5 MG TABLET PO ×2 (09:05→20:29)
[2023-08-12] MEDS: Thiamine HCL 100 MG TABLET PO (09:05)
[2023-08-12 09:08] LABS: Glucose, Whole Blood 153 mg/dL (60-115)
[2023-08-12] MEDS: Insulin Glargine,Hum.rec.anlog 100 UNIT/ML 10 ML VIAL 15 UNIT SUBCUT (09:17)
[2023-08-12] MEDS: Cyanocobalamin (Vitamin B-12) 500 MCG TABLET PO (09:25)
[2023-08-12 10:21] LABS: Troponin-I High Sensitivity < 2.7 ng/L (<3.5-17.0)
[2023-08-12 10:54] VITALS: BP 115/63; PULSE 78; RESP 16; TEMP 36.7; O2SAT 99
[2023-08-12 12:15] LABS: Glucose, Whole Blood 174 mg/dL (60-115)
[2023-08-12] MEDS: Insulin Lispro 100 UNIT/ML 3 ML VIAL SUBCUT ×3 (12:16→20:30)
[2023-08-12 12:55] LABS: Troponin-I High Sensitivity < 2.7 ng/L (<3.5-17.0)
--- NOTE | 2023-08-12 13:17 | MHC.CARE ---
Clinician reached out to case Management asking that they meet with Pt as she wanted to complete a Health care proxy for her daughter, Ngoc. Car management noted that they would come meet with her.
--- NOTE | 2023-08-12 13:23 | MHC.CARE ---
Call was placed to Pt's daughter, Ngoc to inform her that her mother was found to be inpatient level of care. Pt will also be meting with case management to fill out a health care proxy for Ngoc to be able to make decisions regarding her mother's behalf. Ngoc would like to be updated if anything changes regarding her mother disposition.
--- NOTE | 2023-08-12 13:26 | MHC.CARE ---
Call was made to [facility] asking for Precert. Fax was sent and update needed within 24 hours.
[2023-08-12 16:16] VITALS: BP 107/67; PULSE 85; RESP 16; TEMP 36.2; O2SAT 98
[2023-08-12 17:20] LABS: Glucose, Whole Blood 165 mg/dL (60-115)
[2023-08-12] MEDS: hydrOXYzine HCL 25 MG TABLET PO (17:25)
[2023-08-12 20:10] LABS: Glucose, Whole Blood 181 mg/dL (60-115)
[2023-08-12 20:26] VITALS: BP 100/50; PULSE 85; RESP 18; TEMP 36.3; O2SAT 95
--- NOTE | 2023-08-12 20:57 | PC.NURSE ---
Patient is bed appears sleeping, no distress observed/reported, no behavior concerns, meds and meals compliant, ambulates independently with walker, disposition per care team is section 12 inpatient bed search, will continue to monitor
[2023-08-13] MEDS: Acetaminophen 325 MG TABLET 650 MG PO ×2 (04:15→14:50)
[2023-08-13] MEDS: hydrOXYzine HCL 25 MG TABLET PO ×2 (04:16→20:59)
--- NOTE | 2023-08-13 04:19 | PC.NURSE ---
Pt is awake and alert reporting anxiety and headache, 5/10. Mediated with PRN as per in the MAR. Pt tolerated well. Food and drink provided as requested. Monitoring is ongoing.
[2023-08-13 06:00] VITALS: BP 93/51; PULSE 108; RESP 19; TEMP 36.2; O2SAT 92
[2023-08-13] MEDS: Omeprazole 40 MG CAPSULE.DR PO (06:12)
[2023-08-13 07:11] LABS: Glucose, Whole Blood 248 mg/dL (60-115)
[2023-08-13] MEDS: Insulin Lispro 100 UNIT/ML 3 ML VIAL SUBCUT ×4 (07:13→20:59)
[2023-08-13 08:48] VITALS: BP 93/51
[2023-08-13] MEDS: Thiamine HCL 100 MG TABLET PO (08:48)
[2023-08-13 08:49] VITALS: BP 93/51
[2023-08-13] MEDS: Folic Acid 1 MG TABLET PO (08:49)
[2023-08-13] MEDS: Gabapentin 400 MG CAPSULE PO ×3 (08:49→20:53)
[2023-08-13] MEDS: Aspirin 81 MG TAB.CHEW PO (08:49)
[2023-08-13] MEDS: Insulin Glargine,Hum.rec.anlog 100 UNIT/ML 10 ML VIAL 15 UNIT SUBCUT (08:50)
[2023-08-13] MEDS: clonazePAM 0.5 MG TABLET PO ×2 (08:50→20:53)
[2023-08-13] MEDS: Metoprolol Tartrate 25 MG TABLET PO (08:50)
[2023-08-13] MEDS: Cyanocobalamin (Vitamin B-12) 500 MCG TABLET PO (08:59)
[2023-08-13] MEDS: risperiDONE 1 MG TABLET PO ×2 (09:16→20:53)
[2023-08-13 12:18] LABS: Glucose, Whole Blood 282 mg/dL (60-115)
--- NOTE | 2023-08-13 13:04 | MHC.EDTECH ---
Patient Morning Glucose was 248 done at 7:08 in the morning my computer wouldn't load the work list
[2023-08-13 15:31] VITALS: BP 108/66; PULSE 86; RESP 20; TEMP 36.6; O2SAT 99
[2023-08-13 17:00] LABS: Glucose, Whole Blood 188 mg/dL (60-115)
--- NOTE | 2023-08-13 19:19 | PC.NURSE ---
patient appears to remain at rest at present respirations are even and unlabored patient appears in no distress.
--- NOTE | 2023-08-13 20:51 | MHC.CARE ---
Call placed to [facility] for updated clinicals. After 15 minutes, detailed vm with request for return call left.
[2023-08-13] MEDS: Atorvastatin Calcium 40 MG TABLET PO (20:52)
[2023-08-13 20:58] LABS: Glucose, Whole Blood 271 mg/dL (60-115)
--- NOTE | 2023-08-13 22:26 | MHC.CARE ---
Clinical update provided to Luisa at [facility]
[2023-08-14 00:53] VITALS: BP 111/71; PULSE 101; RESP 18; TEMP 36.9; O2SAT 98
[2023-08-14 07:13] LABS: Glucose, Whole Blood 267 mg/dL (60-115)
[2023-08-14] MEDS: Insulin Lispro 100 UNIT/ML 3 ML VIAL SUBCUT ×4 (07:38→20:16)
[2023-08-14] MEDS: Omeprazole 40 MG CAPSULE.DR PO (07:39)
--- NOTE | 2023-08-14 07:48 | PC.NURSE ---
Assumed care of patient at 0645, patient appears to be sleeping at this time, respirations even and unlabored, no apparent distress. Holding 0600 medication until 0900 medications are due to allow for patient to sleep. Continue plan of care for inpatient bedsearch
--- NOTE | 2023-08-14 07:50 | PC.NURSE ---
Assumed care of patient at 0645, patient resting on bed, offering no complaints, took am insulin without issue, picking at food. Appears to be in no apparent distress at this time. Continue plan of care for inpatient bedsearch
[2023-08-14] MEDS: clonazePAM 0.5 MG TABLET PO ×2 (09:01→20:18)
[2023-08-14] MEDS: risperiDONE 1 MG TABLET PO ×2 (09:03→20:18)
[2023-08-14] MEDS: Aspirin 81 MG TAB.CHEW PO (09:03)
[2023-08-14] MEDS: hydroCHLOROthiazide 12.5 MG TABLET PO (09:03)
[2023-08-14] MEDS: Pregabalin 100 MG CAPSULE PO ×2 (09:03→20:17)
[2023-08-14] MEDS: amLODIPine Besylate 5 MG TABLET PO (09:03)
[2023-08-14] MEDS: Gabapentin 400 MG CAPSULE PO ×3 (09:03→20:17)
[2023-08-14] MEDS: glipiZIDE 5 MG TABLET 2.5 MG PO (09:03)
[2023-08-14] MEDS: Metoprolol Tartrate 25 MG TABLET PO (09:03)
[2023-08-14] MEDS: lisinopriL 10 MG TABLET PO (09:03)
[2023-08-14] MEDS: Folic Acid 1 MG TABLET PO (09:03)
[2023-08-14] MEDS: Thiamine HCL 100 MG TABLET PO (09:03)
[2023-08-14] MEDS: Acetaminophen 325 MG TABLET 650 MG PO ×2 (09:04→20:30)
[2023-08-14 09:17] LABS: Glucose, Whole Blood 245 mg/dL (60-115)
[2023-08-14] MEDS: Insulin Glargine,Hum.rec.anlog 100 UNIT/ML 10 ML VIAL 15 UNIT SUBCUT (09:18)
--- NOTE | 2023-08-14 11:07 | PC.NURSE ---
RE: B12 medication Called pharmacy around 0845 for medication 1045 no medication, called pharmacy again
[2023-08-14] MEDS: Cyanocobalamin (Vitamin B-12) 500 MCG TABLET PO (11:14)
[2023-08-14 13:19] LABS: Glucose, Whole Blood 196 mg/dL (60-115)
[2023-08-14 15:05] VITALS: BP 92/56; PULSE 98; RESP 18; TEMP 36.2; O2SAT 100
[2023-08-14 15:06] VITALS: BMI 33.6
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
[2023-08-14 16:07] LABS: Glucose, Whole Blood 208 mg/dL (60-115)
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
[2023-08-14] MEDS: Atorvastatin Calcium 40 MG TABLET PO (20:17)
[2023-08-14 21:04] LABS: Glucose, Whole Blood 229 mg/dL (60-115)
[2023-08-14] MEDS: Melatonin 3 MG TABLET 6 MG PO (21:56)
[2023-08-14] MEDS: hydrOXYzine HCL 25 MG TABLET PO (21:56)
[2023-08-14] MEDS: traZODone HCL 50 MG TABLET PO (21:57)
[2023-08-15] MEDS: Omeprazole 40 MG CAPSULE.DR PO (06:30)
[2023-08-15 06:45] LABS: Glucose, Whole Blood 197 mg/dL (60-115)
[2023-08-15 08:00] VITALS: BP 107/65; PULSE 102; RESP 18; TEMP 36.6; O2SAT 97
[2023-08-15] MEDS: Insulin Glargine,Hum.rec.anlog 100 UNIT/ML 10 ML VIAL 15 UNIT SUBCUT (08:27)
[2023-08-15] MEDS: Insulin Lispro 100 UNIT/ML 3 ML VIAL SUBCUT ×4 (08:28→20:35)
[2023-08-15 08:29] VITALS: BP 107/65
[2023-08-15] MEDS: Pregabalin 100 MG CAPSULE PO (08:29)
[2023-08-15] MEDS: amLODIPine Besylate 5 MG TABLET PO (08:29)
[2023-08-15 08:30] VITALS: BP 106/75
[2023-08-15] MEDS: Gabapentin 400 MG CAPSULE PO (08:30)
[2023-08-15] MEDS: Cyanocobalamin (Vitamin B-12) 500 MCG TABLET PO (08:30)
[2023-08-15] MEDS: lisinopriL 10 MG TABLET PO (08:30)
[2023-08-15] MEDS: Folic Acid 1 MG TABLET PO (08:30)
[2023-08-15 08:31] VITALS: BP 107/65; PULSE 102
[2023-08-15] MEDS: Metoprolol Tartrate 25 MG TABLET PO (08:31)
[2023-08-15] MEDS: glipiZIDE 5 MG TABLET 2.5 MG PO (08:31)
[2023-08-15] MEDS: clonazePAM 0.5 MG TABLET PO ×2 (08:31→20:33)
[2023-08-15 08:32] VITALS: BP 106/65
[2023-08-15] MEDS: Aspirin 81 MG TAB.CHEW PO (08:32)
[2023-08-15] MEDS: Thiamine HCL 100 MG TABLET PO (08:32)
[2023-08-15] MEDS: hydroCHLOROthiazide 12.5 MG TABLET PO (08:32)
[2023-08-15] MEDS: risperiDONE 1 MG TABLET PO ×2 (08:33→20:33)
[2023-08-15 09:09] LABS: Alanine Aminotransferase 26 U/L (0-31); Alkaline Phosphatase 100 U/L (39-117); Anion Gap 13 (12-20); Aspartate Amino Transferase 19 U/L (5-31); Bilirubin Total 0.2 mg/dL (0.0-1.0); Blood Urea Nitrogen 26 mg/dL (9-16); Calcium 9.9 mg/dL (8.4-10.2); Carbon Dioxide 26 mmol/L (22-29); Chloride 99 mmol/L (96-108); Cholesterol 182 mg/dL (<200); Creatinine Clr Calc Pharmacy 77.4; Estimated Glomerular Filt Rate > 60; Glucose Fasting 303 mg/dL (60-99); HDL Cholesterol 42 mg/dL (>40); LDL Cholesterol Calculated 67 mg/dL (<100); Potassium 4.5 mmol/L (3.3-5.1); Sodium 133 mmol/L (135-145); Total Protein 7.8 g/dL (6.5-8.0); Triglycerides 368 mg/dL (<150)
[2023-08-15] MEDS: Nicotine Polacrilex 2 MG GUM BUCCAL ×4 (11:14→20:36)
[2023-08-15 11:18] LABS: Glucose, Whole Blood 232 mg/dL (60-115)
--- NOTE | 2023-08-15 12:48 | HO.PSYCHPN ---
Subjective Subjective Date of Service: 08/15/23 Reason For Visit: Psychosis Subjective Notes: Hobbs Warning and Conditional Voluntary Interim History: Pt slept most of the night. She reports she was not stealing from s. She is not sure why others where concern about her. She denies SI/HI. She clarifies it was not raw arroyo but instead prosci[place] what she was eating at -- when asked if she paid for it... she states she is not sure. We reviewed her medications- she does not have much knowledge as to what she is taking or for what. I do know some of these medications have been dced like gabapentin was discontinued and she was switched to lyrica- currently both are ordered. will keep lyrica as gabapentin was not effective for neuropathic pain for her and also increase bilat REJI. Same with HTN meds- hydrocholothiazide was stopped due to hyponatremia. Amlodipine was discontinued prior to starting hydrochlorothiazide (mostly due to bilat REJI), after hydrochlothiazide was stopped she had been started on lisinopril. She currently has these 3 meds and her BP is low. She also reports feeling dizzy. will dc amlodipine and hydrochlorothiazide. She is mildly hyponatremic- will recheck tomorrow. Diagnostics Vital Signs (24Hr): Vital Signs - 24 hr 08/14/23 15:05 08/15/23 08:00 08/15/23 08:29 Temperature 97.2 F 97.8 F Pulse Rate 98 102 H Respiratory Rate 18 18 Blood Pressure 92/56 L 107/65 107/65 Pulse Oximetry 100 97 Oxygen Delivery Method Room Air Room Air 08/15/23 08:30 08/15/23 08:31 08/15/23 08:32 Temperature Pulse Rate 102 H Respiratory Rate Blood Pressure 106/75 107/65 106/65 Pulse Oximetry Oxygen Delivery Method BMI result Body Mass Index 33.6 Labs 08/12/23 04:13 08/16/23 09:52 Labs: Laboratory Results - last 48 hr 08/13/23 08/13/23 08/14/23 16:57 20:54 07:09 Sodium Potassium Chloride Carbon Dioxide Anion Gap BUN Creatinine Estim Creat Clear Calc Estimated GFR POC Glucose 188 H 271 H 267 H Fasting Glucose Calcium Total Bilirubin AST ALT Alkaline Phosphatase Total Protein Albumin Triglycerides Cholesterol LDL Cholesterol, Calc HDL Cholesterol 08/14/23 08/14/23 08/14/23 09:11 13:16 16:04 Sodium Potassium Chloride Carbon Dioxide Anion Gap BUN Creatinine Estim Creat Clear Calc Estimated GFR POC Glucose 245 H 196 H 208 H Fasting Glucose Calcium Total Bilirubin AST ALT Alkaline Phosphatase Total Protein Albumin Triglycerides Cholesterol LDL Cholesterol, Calc HDL Cholesterol 08/14/23 08/15/23 08/15/23 19:53 06:40 08:40 Sodium 133 L Potassium 4.5 Chloride 99 Carbon Dioxide 26 Anion Gap 13 BUN 26 H Creatinine 0.74 Estim Creat Clear Calc 77.4 Estimated GFR > 60 POC Glucose 229 H 197 H Fasting Glucose 303 H Calcium 9.9 Total Bilirubin 0.2 AST 19 ALT 26 Alkaline Phosphatase 100 Total Protein 7.8 Albumin 4.0 Triglycerides 368 H Cholesterol 182 LDL Cholesterol, Calc 67 HDL Cholesterol 42 08/15/23 11:13 Sodium Potassium Chloride Carbon Dioxide Anion Gap BUN Creatinine Estim Creat Clear Calc Estimated GFR POC Glucose 232 H Fasting Glucose Calcium Total Bilirubin AST ALT Alkaline Phosphatase Total Protein Albumin Triglycerides Cholesterol LDL Cholesterol, Calc HDL Cholesterol Medications Medications Current Medications Acetaminophen (Acetaminophen 325 Mg Tablet) 650 mg PO Q6H PRN PRN Reason: Headache/Pain Mild Scale (1-3) Last Admin: 08/14/23 20:30 Dose: 650 mg Al Hydroxide/Mg Hydroxide (Magnesium Hydrox/Alum Hydrox 30 Ml Oral.Susp) 30 ml PO Q6H PRN PRN Reason: Heartburn/Nausea Albuterol Sulfate (Albuterol Sulfate 90 Mcg 8 Gm Inhaler) 1 puff INHALE RQID PRN PRN Reason: wheezing Amlodipine Besylate (Amlodipine Besylate 5 Mg Tablet) 5 mg PO DAILY [facility]; Protocol Last Admin: 08/15/23 08:29 Dose: 5 mg Aspirin (Aspirin 81 Mg Tab.Chew) 81 mg PO DAILY [facility] Last Admin: 08/15/23 08:32 Dose: 81 mg Atorvastatin Calcium (Atorvastatin Calcium 40 Mg Tablet) 40 mg PO BEDTIME [facility] Last Admin: 08/14/23 20:17 Dose: 40 mg Clonazepam (Clonazepam 0.5 Mg Tablet) 0.5 mg PO BID [facility] Last Admin: 08/15/23 08:31 Dose: 0.5 mg Cyanocobalamin (Cyanocobalamin (Vitamin B-12) 500 Mcg Tablet) 500 mcg PO DAILY [facility] Last Admin: 08/15/23 08:30 Dose: 500 mcg Folic Acid (Folic Acid 1 Mg Tablet) 1 mg PO DAILY [facility] Last Admin: 08/15/23 08:30 Dose: 1 mg Gabapentin (Gabapentin 400 Mg Capsule) 400 mg PO TID [facility] Last Admin: 08/15/23 08:30 Dose: 400 mg Glipizide (Glipizide 5 Mg Tablet) 2.5 mg PO DAILY@0730 [facility] Last Admin: 08/15/23 08:31 Dose: 2.5 mg Guaifenesin (Guaifenesin 100 Mg/5 Ml Liquid) 10 ml PO Q4H PRN PRN Reason: Cough Hydrochlorothiazide (Hydrochlorothiazide 12.5 Mg Tablet) 12.5 mg PO DAILY [facility]; Protocol Last Admin: 08/15/23 08:32 Dose: 12.5 mg Hydroxyzine HCl (Hydroxyzine Hcl 25 Mg Tablet) 25 mg PO Q6H PRN PRN Reason: Anxiety Last Admin: 08/14/23 21:56 Dose: 25 mg Insulin Glargine (Insulin Glargine,Hum.Rec.Anlog 100 Unit/Ml 10 Ml Vial) 15 unit SUBCUT DAILY [facility] Last Admin: 08/15/23 08:27 Dose: 15 unit Insulin Human Lispro (Insulin Lispro 100 Unit/Ml 3 Ml Vial) 0 unit SUBCUT QIDACHS [facility]; Protocol Last Admin: 08/15/23 11:26 Dose: 4 unit Lisinopril (Lisinopril 10 Mg Tablet) 10 mg PO DAILY [facility]; Protocol Last Admin: 08/15/23 08:30 Dose: 10 mg Loperamide HCl (Loperamide Hcl 2 Mg Capsule) 2 mg PO Q6H PRN PRN Reason: loose stool Magnesium Hydroxide (Milk Of Magnesia 30 Ml Oral.Susp) 30 ml PO DAILY PRN PRN Reason: Constipation Meclizine HCl (Meclizine Hcl 25 Mg Tablet) 25 mg PO TID PRN PRN Reason: dizziness Melatonin (Melatonin 3 Mg Tablet) 6 mg PO BEDTIME PRN PRN Reason: Insomnia Last Admin: 08/14/23 21:56 Dose: 6 mg Metoprolol Tartrate (Metoprolol Tartrate 25 Mg Tablet) 25 mg PO DAILY [facility]; Protocol Last Admin: 08/15/23 08:31 Dose: 25 mg Nicotine Polacrilex (Nicotine Polacrilex 2 Mg Gum) 2 mg BUCCAL Q2H PRN PRN Reason: Nicotine Cravings Last Admin: 08/15/23 12:43 Dose: 2 mg Omeprazole (Omeprazole 40 Mg Capsule.Dr) 40 mg PO DAILY@0630 [facility] Last Admin: 08/15/23 06:30 Dose: 40 mg Pregabalin (Pregabalin 100 Mg Capsule) 100 mg PO BID [facility] Last Admin: 08/15/23 08:29 Dose: 100 mg Risperidone (Risperidone 1 Mg Tablet) 1 mg PO BID [facility] Last Admin: 08/15/23 08:33 Dose: 1 mg Sumatriptan Succinate (Sumatriptan Succinate 50 Mg Tablet) 50 mg PO DAILY PRN PRN Reason: Migraine Headache Thiamine HCl (Thiamine Hcl 100 Mg Tablet) 100 mg PO DAILY [facility] Last Admin: 08/15/23 08:32 Dose: 100 mg Trazodone HCl (Trazodone Hcl 50 Mg Tablet) 50 mg PO BEDTIME PRN PRN Reason: Insomnia Last Admin: 08/14/23 21:57 Dose: 50 mg Allergies Allergies Allergy/AdvReac Type Severity Reaction Status Date / Time bee pollen Allergy Anaphylaxis Verified 08/12/23 03:20 Assessment & Plan Assessment & Plan (1) Bipolar disorder with psychotic features: Status: Acute Code(s): F31.9 - Bipolar disorder, unspecified (2) Alcohol use disorder: Status: Acute Code(s): F10.90 - Alcohol use, unspecified, uncomplicated Plan The patient is a middle-aged [place] descent female with a past history of schizoaffective disorder bipolar type and dementia who was brought from the community after she was shoplifting at a [employer] store and eating raw arroyo, grossly disorganized unable to take care of herself. She was seen by crisis and transferring to this facility for psychiatric stabilization. Plan 08/14- dc hydrochlorothiazide, amlodipine, continue lisinopril. dc gabapentin Reason for continued inpatient stay Substantial Risk for: inability to function Time Spent With Patient Time: Total time managing care of this patient today ____ minutes.
[2023-08-15] MEDS: Acetaminophen 325 MG TABLET 650 MG PO ×2 (14:47→20:33)
[2023-08-15] MEDS: Lidocaine 4 % Patch ADH..PATCH 1 PATCH TRANSDERMA (14:47)
[2023-08-15] MEDS: Urea 15 GM POWDER PO (14:50)
[2023-08-15 16:18] LABS: Glucose, Whole Blood 276 mg/dL (60-115)
[2023-08-15 20:00] VITALS: BP 106/51; PULSE 96; TEMP 36.9; O2SAT 98
[2023-08-15 20:01] LABS: Glucose, Whole Blood 220 mg/dL (60-115)
[2023-08-15] MEDS: Melatonin 3 MG TABLET 6 MG PO (20:33)
[2023-08-15] MEDS: traZODone HCL 50 MG TABLET PO (20:33)
[2023-08-15] MEDS: Atorvastatin Calcium 40 MG TABLET PO (20:33)
[2023-08-15] MEDS: hydrOXYzine HCL 25 MG TABLET PO (20:33)
[2023-08-15] MEDS: Pregabalin 150 MG CAPSULE PO (20:33)
[2023-08-16] MEDS: Omeprazole 40 MG CAPSULE.DR PO (06:21)
[2023-08-16 06:45] LABS: Glucose, Whole Blood 278 mg/dL (60-115)
[2023-08-16 07:58] VITALS: BP 116/59; PULSE 105; RESP 18; TEMP 36.1; O2SAT 99
[2023-08-16 08:00] VITALS: BP 116/59; PULSE 105
[2023-08-16] MEDS: Aspirin 81 MG TAB.CHEW PO (08:00)
[2023-08-16] MEDS: Pregabalin 150 MG CAPSULE PO ×2 (08:00→20:07)
[2023-08-16] MEDS: Cyanocobalamin (Vitamin B-12) 500 MCG TABLET PO (08:00)
[2023-08-16] MEDS: Thiamine HCL 100 MG TABLET PO (08:00)
[2023-08-16] MEDS: Folic Acid 1 MG TABLET PO (08:00)
[2023-08-16] MEDS: Metoprolol Tartrate 25 MG TABLET PO (08:00)
[2023-08-16] MEDS: risperiDONE 1 MG TABLET PO ×2 (08:00→20:07)
[2023-08-16] MEDS: glipiZIDE 5 MG TABLET 2.5 MG PO (08:01)
[2023-08-16] MEDS: clonazePAM 0.5 MG TABLET PO ×2 (08:02→20:07)
[2023-08-16] MEDS: Acetaminophen 325 MG TABLET 650 MG PO ×3 (08:03→20:07)
[2023-08-16] MEDS: Insulin Glargine,Hum.rec.anlog 100 UNIT/ML 10 ML VIAL 15 UNIT SUBCUT (08:04)
[2023-08-16] MEDS: Insulin Lispro 100 UNIT/ML 3 ML VIAL SUBCUT ×4 (08:05→20:10)
[2023-08-16] MEDS: Nicotine Polacrilex 2 MG GUM BUCCAL (08:10)
[2023-08-16] MEDS: Lidocaine 4 % Patch ADH..PATCH 1 PATCH TRANSDERMA (08:10)
[2023-08-16 10:16] LABS: Anion Gap 14 (12-20); Blood Urea Nitrogen 34 mg/dL (9-16); Calcium 9.4 mg/dL (8.4-10.2); Carbon Dioxide 23 mmol/L (22-29); Chloride 102 mmol/L (96-108); Creatinine Clr Calc Pharmacy 76.4; Estimated Glomerular Filt Rate > 60; Glucose Random 379 mg/dL (60-115); Potassium 4.8 mmol/L (3.3-5.1); Sodium 134 mmol/L (135-145)
--- NOTE | 2023-08-16 10:53 | PC.NURSE ---
Addendum entered by Erna Arredondo RN 08/16/23 11:48: Prior to lunch, patients POC was rechecked and read 382. 10 units of Lispro were given per sliding scale and Bhavani Lan notified again, per protocol. Original Note: Lab called later this morning with a critical random glucose for patient, reading 379. Provider Bhavani Lan notified via tiger text.
[2023-08-16 11:43] LABS: Glucose, Whole Blood 382 mg/dL (60-115)
[2023-08-16 16:14] LABS: Glucose, Whole Blood 353 mg/dL (60-115)
--- NOTE | 2023-08-16 17:15 | HO.PSYCHPN ---
Subjective Subjective Date of Service: 08/16/23 Reason For Visit: Psychosis Subjective Notes: Conditional Voluntary Interim History: Pt slept through the night. Na back to normal. Pt reports feeling well. No SI/HI. No overt delusions or psychosis. She has been visible on the unit, social with select peers. takes meds as prescribed. no side effects. Review of Systems Review of Systems Yes all other systems are reviewed and are negative and Unobtainable due to mental condition Mental Status Exam Mental Status Exam Patient Appearance: Appropriate (On hospital gowns) and Unkempt Patient Orientation: Person and Situation Level of Consciousness: Awake and Alert Patient Behavior: Guarded and Passive Mood Description: Withdrawn Affect Description: Constricted Patient Cognition Impaired: Yes Ability to Follow Directions: Fair Speech Pattern: Clear Diagnostics Vital Signs (24Hr): Vital Signs - 24 hr 08/15/23 20:00 08/16/23 07:58 08/16/23 08:00 Temperature 98.5 F 96.9 F Pulse Rate 96 105 H 105 H Respiratory Rate 18 Blood Pressure 106/51 L 116/59 L 116/59 L Pulse Oximetry 98 99 Oxygen Delivery Method Room Air Room Air BMI result Body Mass Index 33.6 Labs 08/12/23 04:13 08/16/23 09:52 Labs: Laboratory Results - last 48 hr 08/14/23 08/15/23 08/15/23 19:53 06:40 08:40 Sodium 133 L Potassium 4.5 Chloride 99 Carbon Dioxide 26 Anion Gap 13 BUN 26 H Creatinine 0.74 Estim Creat Clear Calc 77.4 Estimated GFR > 60 POC Glucose 229 H 197 H Random Glucose Fasting Glucose 303 H Calcium 9.9 Total Bilirubin 0.2 AST 19 ALT 26 Alkaline Phosphatase 100 Total Protein 7.8 Albumin 4.0 Triglycerides 368 H Cholesterol 182 LDL Cholesterol, Calc 67 HDL Cholesterol 42 08/15/23 08/15/23 08/15/23 11:13 16:14 19:55 Sodium Potassium Chloride Carbon Dioxide Anion Gap BUN Creatinine Estim Creat Clear Calc Estimated GFR POC Glucose 232 H 276 H 220 H Random Glucose Fasting Glucose Calcium Total Bilirubin AST ALT Alkaline Phosphatase Total Protein Albumin Triglycerides Cholesterol LDL Cholesterol, Calc HDL Cholesterol 08/16/23 08/16/23 08/16/23 06:34 09:52 11:40 Sodium 134 L Potassium 4.8 Chloride 102 Carbon Dioxide 23 Anion Gap 14 BUN 34 H Creatinine 0.75 Estim Creat Clear Calc 76.4 Estimated GFR > 60 POC Glucose 278 H 382 H* Random Glucose 379 H* Fasting Glucose Calcium 9.4 Total Bilirubin AST ALT Alkaline Phosphatase Total Protein Albumin Triglycerides Cholesterol LDL Cholesterol, Calc HDL Cholesterol 08/16/23 16:11 Sodium Potassium Chloride Carbon Dioxide Anion Gap BUN Creatinine Estim Creat Clear Calc Estimated GFR POC Glucose 353 H* Random Glucose Fasting Glucose Calcium Total Bilirubin AST ALT Alkaline Phosphatase Total Protein Albumin Triglycerides Cholesterol LDL Cholesterol, Calc HDL Cholesterol Medications Medications Current Medications Acetaminophen (Acetaminophen 325 Mg Tablet) 650 mg PO TID [facility] Last Admin: 08/16/23 15:18 Dose: 650 mg Al Hydroxide/Mg Hydroxide (Magnesium Hydrox/Alum Hydrox 30 Ml Oral.Susp) 30 ml PO Q6H PRN PRN Reason: Heartburn/Nausea Albuterol Sulfate (Albuterol Sulfate 90 Mcg 8 Gm Inhaler) 1 puff INHALE RQID PRN PRN Reason: wheezing Aspirin (Aspirin 81 Mg Tab.Chew) 81 mg PO DAILY [facility] Last Admin: 08/16/23 08:00 Dose: 81 mg Atorvastatin Calcium (Atorvastatin Calcium 40 Mg Tablet) 40 mg PO BEDTIME [facility] Last Admin: 08/15/23 20:33 Dose: 40 mg Clonazepam (Clonazepam 0.5 Mg Tablet) 0.5 mg PO BID [facility] Last Admin: 08/16/23 08:02 Dose: 0.5 mg Cyanocobalamin (Cyanocobalamin (Vitamin B-12) 500 Mcg Tablet) 500 mcg PO DAILY [facility] Last Admin: 08/16/23 08:00 Dose: 500 mcg Folic Acid (Folic Acid 1 Mg Tablet) 1 mg PO DAILY [facility] Last Admin: 08/16/23 08:00 Dose: 1 mg Glipizide (Glipizide 5 Mg Tablet) 2.5 mg PO DAILY@0730 [facility] Last Admin: 08/16/23 08:01 Dose: 2.5 mg Guaifenesin (Guaifenesin 100 Mg/5 Ml Liquid) 10 ml PO Q4H PRN PRN Reason: Cough Hydroxyzine HCl (Hydroxyzine Hcl 25 Mg Tablet) 25 mg PO Q6H PRN PRN Reason: Anxiety Last Admin: 08/15/23 20:33 Dose: 25 mg Insulin Glargine (Insulin Glargine,Hum.Rec.Anlog 100 Unit/Ml 10 Ml Vial) 15 unit SUBCUT DAILY [facility] Last Admin: 08/16/23 08:04 Dose: 15 unit Insulin Human Lispro (Insulin Lispro 100 Unit/Ml 3 Ml Vial) 0 unit SUBCUT QIDACHS [facility]; Protocol Last Admin: 08/16/23 16:32 Dose: 10 unit Lidocaine (Lidocaine 4 % Patch Adh..Patch) 1 patch TRANSDERMA DAILY [facility]; Protocol Last Admin: 08/16/23 08:10 Dose: 1 patch Lisinopril (Lisinopril 10 Mg Tablet) 10 mg PO DAILY [facility]; Protocol Last Admin: 08/15/23 08:30 Dose: 10 mg Loperamide HCl (Loperamide Hcl 2 Mg Capsule) 2 mg PO Q6H PRN PRN Reason: loose stool Magnesium Hydroxide (Milk Of Magnesia 30 Ml Oral.Susp) 30 ml PO DAILY PRN PRN Reason: Constipation Melatonin (Melatonin 3 Mg Tablet) 6 mg PO BEDTIME PRN PRN Reason: Insomnia Last Admin: 08/15/23 20:33 Dose: 6 mg Metoprolol Tartrate (Metoprolol Tartrate 25 Mg Tablet) 25 mg PO DAILY [facility]; Protocol Last Admin: 08/16/23 08:00 Dose: 25 mg Nicotine Polacrilex (Nicotine Polacrilex 2 Mg Gum) 2 mg BUCCAL Q2H PRN PRN Reason: Nicotine Cravings Last Admin: 08/16/23 08:10 Dose: 2 mg Omeprazole (Omeprazole 40 Mg Capsule.Dr) 40 mg PO DAILY@0630 [facility] Last Admin: 08/16/23 06:21 Dose: 40 mg Pregabalin (Pregabalin 150 Mg Capsule) 150 mg PO BID [facility] Last Admin: 08/16/23 08:00 Dose: 150 mg Risperidone (Risperidone 1 Mg Tablet) 1 mg PO BID [facility] Last Admin: 08/16/23 08:00 Dose: 1 mg Sumatriptan Succinate (Sumatriptan Succinate 50 Mg Tablet) 50 mg PO DAILY PRN PRN Reason: Migraine Headache Thiamine HCl (Thiamine Hcl 100 Mg Tablet) 100 mg PO DAILY [facility] Last Admin: 08/16/23 08:00 Dose: 100 mg Trazodone HCl (Trazodone Hcl 50 Mg Tablet) 50 mg PO BEDTIME PRN PRN Reason: Insomnia Last Admin: 08/15/23 20:33 Dose: 50 mg Allergies Allergies Allergy/AdvReac Type Severity Reaction Status Date / Time bee pollen Allergy Anaphylaxis Verified 08/12/23 03:20 Assessment & Plan Assessment & Plan (1) Bipolar disorder with psychotic features: Status: Acute Code(s): F31.9 - Bipolar disorder, unspecified (2) Alcohol use disorder: Status: Acute Code(s): F10.90 - Alcohol use, unspecified, uncomplicated Plan The patient is a middle-aged [place] descent female with a past history of schizoaffective disorder bipolar type and dementia who was brought from the community after she was shoplifting at a [employer] store and eating raw arroyo, grossly disorganized unable to take care of herself. She was seen by crisis and transferring to this facility for psychiatric stabilization. Plan 1. continue tx. Reason for continued inpatient stay Substantial Risk for: inability to function Time Spent With Patient Time: Total time managing care of this patient today ____ minutes.
--- NOTE | 2023-08-16 17:30 | P.EN_ITS ---
Event Note Date of Service: 08/16/23 Event Note: Patient is a 57 year PMH significant for HTN insulin-dependent type 2 diabetes and schizoaffective disorder who was admitted to [facility] with hospitalist consult placed for diabetes management. Patient has been consistently hyperglycemic while on the unit with last readings being 379, 382, and 353. Will increase Lantus from 15 units daily to 20 units daily. Will continue to monitor POC and titrate treatment from there. Would encouraged pt to follow diabetic diet and diabetic snacking. Time Spent With Patient Time: Total time managing care of this patient today ____ minutes.
[2023-08-16] MEDS: Insulin Glargine,Hum.rec.anlog 100 UNIT/ML 10 ML VIAL SUBCUT (17:44)
[2023-08-16 20:00] VITALS: BP 117/58; PULSE 104; TEMP 36.6; O2SAT 96
[2023-08-16] MEDS: Atorvastatin Calcium 40 MG TABLET PO (20:06)
[2023-08-16 20:36] LABS: Glucose, Whole Blood 325 mg/dL (60-115)
[2023-08-16] MEDS: Melatonin 3 MG TABLET 6 MG PO (21:28)
[2023-08-16] MEDS: traZODone HCL 50 MG TABLET PO (21:28)
[2023-08-16] MEDS: hydrOXYzine HCL 25 MG TABLET PO (21:28)
[2023-08-17] MEDS: Omeprazole 40 MG CAPSULE.DR PO (06:29)
[2023-08-17 07:00] VITALS: BMI 34.8
[2023-08-17 08:00] VITALS: BP 145/68; PULSE 105; RESP 18; TEMP 36.4; O2SAT 99
[2023-08-17] MEDS: Insulin Glargine,Hum.rec.anlog 100 UNIT/ML 10 ML VIAL 20 UNIT SUBCUT (08:27)
[2023-08-17] MEDS: Insulin Lispro 100 UNIT/ML 3 ML VIAL SUBCUT ×4 (08:28→20:52)
[2023-08-17] MEDS: Thiamine HCL 100 MG TABLET PO (08:28)
[2023-08-17] MEDS: Pregabalin 150 MG CAPSULE PO ×2 (08:29→20:45)
[2023-08-17] MEDS: clonazePAM 0.5 MG TABLET PO ×2 (08:29→20:45)
[2023-08-17] MEDS: Cyanocobalamin (Vitamin B-12) 500 MCG TABLET PO (08:29)
[2023-08-17] MEDS: glipiZIDE 5 MG TABLET 2.5 MG PO (08:29)
[2023-08-17] MEDS: risperiDONE 1 MG TABLET PO ×2 (08:29→20:45)
[2023-08-17] MEDS: Acetaminophen 325 MG TABLET 650 MG PO ×3 (08:30→20:45)
[2023-08-17] MEDS: Aspirin 81 MG TAB.CHEW PO (08:30)
[2023-08-17] MEDS: Folic Acid 1 MG TABLET PO (08:30)
[2023-08-17 08:31] VITALS: BP 145/68; PULSE 105
[2023-08-17] MEDS: Metoprolol Tartrate 25 MG TABLET PO (08:31)
[2023-08-17] MEDS: Lidocaine 4 % Patch ADH..PATCH 1 PATCH TRANSDERMA (08:33)
[2023-08-17] MEDS: Nicotine Polacrilex 2 MG GUM BUCCAL ×3 (08:37→18:24)
[2023-08-17 08:56] LABS: Glucose, Whole Blood 290 mg/dL (60-115)
--- NOTE | 2023-08-17 11:32 | HO.PSYCHPN ---
Subjective Subjective Date of Service: 08/17/23 Reason For Visit: Psychosis Subjective Notes: Conditional Voluntary Interim History: Pt slept through the night. Pt reports she is feeling well. No SI/HI. No overt psychosis. She is taking medications as prescribed. She states she is willing to work with [facility] to find appropriate housing. No behavioral concerns. Meeting with [facility] to discuss discharge planning. Review of Systems Review of Systems Yes all other systems are reviewed and are negative and Unobtainable due to mental condition Mental Status Exam Mental Status Exam Patient Appearance: Appropriate (On hospital gowns) and Unkempt Patient Orientation: Person and Situation Level of Consciousness: Awake and Alert Patient Behavior: Guarded and Passive Mood Description: Withdrawn Affect Description: Constricted Patient Cognition Impaired: Yes Ability to Follow Directions: Fair Speech Pattern: Clear Diagnostics Vital Signs (24Hr): Vital Signs - 24 hr 08/16/23 20:00 08/17/23 08:00 08/17/23 08:31 Temperature 97.8 F 97.6 F Pulse Rate 104 H 105 H 105 H Respiratory Rate 18 Blood Pressure 117/58 L 145/68 H 145/68 H Pulse Oximetry 96 99 Oxygen Delivery Method Room Air Room Air BMI result Body Mass Index 33.6 Labs 08/12/23 04:13 08/16/23 09:52 Labs: Laboratory Results - last 48 hr 08/15/23 08/15/23 08/16/23 16:14 19:55 06:34 Sodium Potassium Chloride Carbon Dioxide Anion Gap BUN Creatinine Estim Creat Clear Calc Estimated GFR POC Glucose 276 H 220 H 278 H Random Glucose Calcium 08/16/23 08/16/23 08/16/23 09:52 11:40 16:11 Sodium 134 L Potassium 4.8 Chloride 102 Carbon Dioxide 23 Anion Gap 14 BUN 34 H Creatinine 0.75 Estim Creat Clear Calc 76.4 Estimated GFR > 60 POC Glucose 382 H* 353 H* Random Glucose 379 H* Calcium 9.4 08/16/23 08/17/23 19:42 06:44 Sodium Potassium Chloride Carbon Dioxide Anion Gap BUN Creatinine Estim Creat Clear Calc Estimated GFR POC Glucose 325 H 290 H Random Glucose Calcium Medications Medications Current Medications Acetaminophen (Acetaminophen 325 Mg Tablet) 650 mg PO TID [facility] Last Admin: 08/17/23 08:30 Dose: 650 mg Al Hydroxide/Mg Hydroxide (Magnesium Hydrox/Alum Hydrox 30 Ml Oral.Susp) 30 ml PO Q6H PRN PRN Reason: Heartburn/Nausea Albuterol Sulfate (Albuterol Sulfate 90 Mcg 8 Gm Inhaler) 1 puff INHALE RQID PRN PRN Reason: wheezing Aspirin (Aspirin 81 Mg Tab.Chew) 81 mg PO DAILY [facility] Last Admin: 08/17/23 08:30 Dose: 81 mg Atorvastatin Calcium (Atorvastatin Calcium 40 Mg Tablet) 40 mg PO BEDTIME [facility] Last Admin: 08/16/23 20:06 Dose: 40 mg Clonazepam (Clonazepam 0.5 Mg Tablet) 0.5 mg PO BID [facility] Last Admin: 08/17/23 08:29 Dose: 0.5 mg Cyanocobalamin (Cyanocobalamin (Vitamin B-12) 500 Mcg Tablet) 500 mcg PO DAILY [facility] Last Admin: 08/17/23 08:29 Dose: 500 mcg Folic Acid (Folic Acid 1 Mg Tablet) 1 mg PO DAILY [facility] Last Admin: 08/17/23 08:30 Dose: 1 mg Glipizide (Glipizide 5 Mg Tablet) 2.5 mg PO DAILY@0730 [facility] Last Admin: 08/17/23 08:29 Dose: 2.5 mg Guaifenesin (Guaifenesin 100 Mg/5 Ml Liquid) 10 ml PO Q4H PRN PRN Reason: Cough Hydroxyzine HCl (Hydroxyzine Hcl 25 Mg Tablet) 25 mg PO Q6H PRN PRN Reason: Anxiety Last Admin: 08/16/23 21:28 Dose: 25 mg Insulin Glargine (Insulin Glargine,Hum.Rec.Anlog 100 Unit/Ml 10 Ml Vial) 20 unit SUBCUT DAILY [facility] Last Admin: 08/17/23 08:27 Dose: 20 unit Insulin Human Lispro (Insulin Lispro 100 Unit/Ml 3 Ml Vial) 0 unit SUBCUT QIDACHS [facility]; Protocol Last Admin: 08/17/23 08:28 Dose: 6 unit Lidocaine (Lidocaine 4 % Patch Adh..Patch) 1 patch TRANSDERMA DAILY [facility]; Protocol Last Admin: 08/17/23 08:33 Dose: 1 patch Lisinopril (Lisinopril 10 Mg Tablet) 10 mg PO DAILY [facility]; Protocol Last Admin: 08/15/23 08:30 Dose: 10 mg Loperamide HCl (Loperamide Hcl 2 Mg Capsule) 2 mg PO Q6H PRN PRN Reason: loose stool Magnesium Hydroxide (Milk Of Magnesia 30 Ml Oral.Susp) 30 ml PO DAILY PRN PRN Reason: Constipation Melatonin (Melatonin 3 Mg Tablet) 6 mg PO BEDTIME PRN PRN Reason: Insomnia Last Admin: 08/16/23 21:28 Dose: 6 mg Metoprolol Tartrate (Metoprolol Tartrate 25 Mg Tablet) 25 mg PO DAILY [facility]; Protocol Last Admin: 08/17/23 08:31 Dose: 25 mg Nicotine Polacrilex (Nicotine Polacrilex 2 Mg Gum) 2 mg BUCCAL Q2H PRN PRN Reason: Nicotine Cravings Last Admin: 08/17/23 08:37 Dose: 2 mg Omeprazole (Omeprazole 40 Mg Capsule.Dr) 40 mg PO DAILY@0630 [facility] Last Admin: 08/17/23 06:29 Dose: 40 mg Pregabalin (Pregabalin 150 Mg Capsule) 150 mg PO BID [facility] Last Admin: 08/17/23 08:29 Dose: 150 mg Risperidone (Risperidone 1 Mg Tablet) 1 mg PO BID [facility] Last Admin: 08/17/23 08:29 Dose: 1 mg Sumatriptan Succinate (Sumatriptan Succinate 50 Mg Tablet) 50 mg PO DAILY PRN PRN Reason: Migraine Headache Thiamine HCl (Thiamine Hcl 100 Mg Tablet) 100 mg PO DAILY [facility] Last Admin: 08/17/23 08:28 Dose: 100 mg Trazodone HCl (Trazodone Hcl 50 Mg Tablet) 50 mg PO BEDTIME PRN PRN Reason: Insomnia Last Admin: 08/16/23 21:28 Dose: 50 mg Allergies Allergies Allergy/AdvReac Type Severity Reaction Status Date / Time bee pollen Allergy Anaphylaxis Verified 08/12/23 03:20 Assessment & Plan Assessment & Plan (1) Bipolar disorder with psychotic features: Status: Acute Code(s): F31.9 - Bipolar disorder, unspecified (2) Alcohol use disorder: Status: Acute Code(s): F10.90 - Alcohol use, unspecified, uncomplicated Plan The patient is a middle-aged [place] descent female with a past history of schizoaffective disorder bipolar type and dementia who was brought from the community after she was shoplifting at a [employer] and eating raw arroyo, grossly disorganized unable to take care of herself. She was seen by crisis and transferring to this facility for psychiatric stabilization. Plan 1. continue tx. Reason for continued inpatient stay Substantial Risk for: inability to function Time Spent With Patient Time: Total time managing care of this patient today ____ minutes.
[2023-08-17 11:38] LABS: Glucose, Whole Blood 294 mg/dL (60-115)
[2023-08-17] MEDS: hydrOXYzine HCL 25 MG TABLET PO (15:24)
[2023-08-17 16:41] LABS: Glucose, Whole Blood 155 mg/dL (60-115)
[2023-08-17 20:00] VITALS: BP 127/64; PULSE 86; RESP 16; TEMP 36.3; O2SAT 97
[2023-08-17 20:43] LABS: Glucose, Whole Blood 263 mg/dL (60-115)
[2023-08-17] MEDS: Atorvastatin Calcium 40 MG TABLET PO (20:45)
[2023-08-17] MEDS: Melatonin 3 MG TABLET 6 MG PO (20:45)
[2023-08-17] MEDS: traZODone HCL 50 MG TABLET PO (20:46)
[2023-08-18] MEDS: Omeprazole 40 MG CAPSULE.DR PO (06:35)
[2023-08-18] MEDS: Nicotine Polacrilex 2 MG GUM BUCCAL ×4 (06:39→17:23)
[2023-08-18 06:43] LABS: Glucose, Whole Blood 189 mg/dL (60-115)
[2023-08-18 08:00] VITALS: BP 146/78; PULSE 109; RESP 16; TEMP 36.7; O2SAT 98
[2023-08-18] MEDS: glipiZIDE 5 MG TABLET 2.5 MG PO (08:33)
[2023-08-18] MEDS: Insulin Lispro 100 UNIT/ML 3 ML VIAL SUBCUT ×4 (08:34→20:54)
[2023-08-18] MEDS: risperiDONE 1 MG TABLET PO ×2 (08:34→20:56)
[2023-08-18] MEDS: Acetaminophen 325 MG TABLET 650 MG PO ×3 (08:34→20:54)
[2023-08-18] MEDS: Thiamine HCL 100 MG TABLET PO (08:35)
[2023-08-18] MEDS: Pregabalin 150 MG CAPSULE PO ×2 (08:35→20:56)
[2023-08-18] MEDS: Folic Acid 1 MG TABLET PO (08:35)
[2023-08-18] MEDS: clonazePAM 0.5 MG TABLET PO ×2 (08:35→20:56)
[2023-08-18] MEDS: Metoprolol Tartrate 25 MG TABLET PO (08:35)
[2023-08-18] MEDS: Aspirin 81 MG TAB.CHEW PO (08:35)
[2023-08-18] MEDS: Cyanocobalamin (Vitamin B-12) 500 MCG TABLET PO (08:35)
[2023-08-18] MEDS: Insulin Glargine,Hum.rec.anlog 100 UNIT/ML 10 ML VIAL 20 UNIT SUBCUT (08:35)
[2023-08-18] MEDS: Lidocaine 4 % Patch ADH..PATCH 1 PATCH TRANSDERMA (08:36)
--- NOTE | 2023-08-18 10:59 | HO.PSYCHPN ---
Subjective Subjective Date of Service: 08/18/23 Reason For Visit: Psychosis Subjective Notes: Conditional Voluntary Interim History: Pt slept through the night. Pt has been visible on the unit, social with select peers. No behavioral concerns. No SI/HI. No psychosis or delusions. [facility] may take her but they can't do VNA for insulin QID. dizziness when standing- will check ortho VS Review of Systems Review of Systems Yes all other systems are reviewed and are negative and Unobtainable due to mental condition Mental Status Exam Mental Status Exam Patient Appearance: Appropriate (On hospital gowns) and Unkempt Patient Orientation: Person and Situation Level of Consciousness: Awake and Alert Patient Behavior: Guarded and Passive Mood Description: Withdrawn Affect Description: Constricted Patient Cognition Impaired: Yes Ability to Follow Directions: Fair Speech Pattern: Clear Diagnostics Vital Signs (24Hr): Vital Signs - 24 hr 08/17/23 20:00 08/18/23 08:00 Temperature 97.4 F 98.1 F Pulse Rate 86 109 H Respiratory Rate 16 16 Blood Pressure 127/64 146/78 H Pulse Oximetry 97 98 Oxygen Delivery Method Room Air Room Air BMI result Body Mass Index 34.8 Labs 08/12/23 04:13 08/16/23 09:52 Labs: Laboratory Results - last 48 hr 08/16/23 08/16/23 08/16/23 11:40 16:11 19:42 POC Glucose 382 H* 353 H* 325 H 08/17/23 08/17/23 08/17/23 06:44 11:34 16:37 POC Glucose 290 H 294 H 155 H 08/17/23 08/18/23 20:35 06:36 POC Glucose 263 H 189 H Medications Medications Current Medications Acetaminophen (Acetaminophen 325 Mg Tablet) 650 mg PO TID [facility] Last Admin: 08/18/23 08:34 Dose: 650 mg Al Hydroxide/Mg Hydroxide (Magnesium Hydrox/Alum Hydrox 30 Ml Oral.Susp) 30 ml PO Q6H PRN PRN Reason: Heartburn/Nausea Albuterol Sulfate (Albuterol Sulfate 90 Mcg 8 Gm Inhaler) 1 puff INHALE RQID PRN PRN Reason: wheezing Aspirin (Aspirin 81 Mg Tab.Chew) 81 mg PO DAILY [facility] Last Admin: 08/18/23 08:35 Dose: 81 mg Atorvastatin Calcium (Atorvastatin Calcium 40 Mg Tablet) 40 mg PO BEDTIME [facility] Last Admin: 08/17/23 20:45 Dose: 40 mg Clonazepam (Clonazepam 0.5 Mg Tablet) 0.5 mg PO BID [facility] Last Admin: 08/18/23 08:35 Dose: 0.5 mg Cyanocobalamin (Cyanocobalamin (Vitamin B-12) 500 Mcg Tablet) 500 mcg PO DAILY [facility] Last Admin: 08/18/23 08:35 Dose: 500 mcg Folic Acid (Folic Acid 1 Mg Tablet) 1 mg PO DAILY [facility] Last Admin: 08/18/23 08:35 Dose: 1 mg Glipizide (Glipizide 5 Mg Tablet) 2.5 mg PO DAILY@0730 [facility] Last Admin: 08/18/23 08:33 Dose: 2.5 mg Guaifenesin (Guaifenesin 100 Mg/5 Ml Liquid) 10 ml PO Q4H PRN PRN Reason: Cough Hydroxyzine HCl (Hydroxyzine Hcl 25 Mg Tablet) 25 mg PO Q6H PRN PRN Reason: Anxiety Last Admin: 08/17/23 15:24 Dose: 25 mg Insulin Glargine (Insulin Glargine,Hum.Rec.Anlog 100 Unit/Ml 10 Ml Vial) 20 unit SUBCUT DAILY [facility] Last Admin: 08/18/23 08:35 Dose: 20 unit Insulin Human Lispro (Insulin Lispro 100 Unit/Ml 3 Ml Vial) 0 unit SUBCUT QIDACHS [facility]; Protocol Last Admin: 08/18/23 08:34 Dose: 2 unit Lidocaine (Lidocaine 4 % Patch Adh..Patch) 1 patch TRANSDERMA DAILY [facility]; Protocol Last Admin: 08/18/23 08:36 Dose: 1 patch Lisinopril (Lisinopril 10 Mg Tablet) 10 mg PO DAILY [facility]; Protocol Last Admin: 08/15/23 08:30 Dose: 10 mg Loperamide HCl (Loperamide Hcl 2 Mg Capsule) 2 mg PO Q6H PRN PRN Reason: loose stool Magnesium Hydroxide (Milk Of Magnesia 30 Ml Oral.Susp) 30 ml PO DAILY PRN PRN Reason: Constipation Melatonin (Melatonin 3 Mg Tablet) 6 mg PO BEDTIME PRN PRN Reason: Insomnia Last Admin: 08/17/23 20:45 Dose: 6 mg Metoprolol Tartrate (Metoprolol Tartrate 25 Mg Tablet) 25 mg PO DAILY [facility]; Protocol Last Admin: 08/18/23 08:35 Dose: 25 mg Nicotine Polacrilex (Nicotine Polacrilex 2 Mg Gum) 2 mg BUCCAL Q2H PRN PRN Reason: Nicotine Cravings Last Admin: 08/18/23 06:39 Dose: 2 mg Omeprazole (Omeprazole 40 Mg Capsule.Dr) 40 mg PO DAILY@0630 [facility] Last Admin: 08/18/23 06:35 Dose: 40 mg Pregabalin (Pregabalin 150 Mg Capsule) 150 mg PO BID [facility] Last Admin: 08/18/23 08:35 Dose: 150 mg Risperidone (Risperidone 1 Mg Tablet) 1 mg PO BID [facility] Last Admin: 08/18/23 08:34 Dose: 1 mg Sumatriptan Succinate (Sumatriptan Succinate 50 Mg Tablet) 50 mg PO DAILY PRN PRN Reason: Migraine Headache Thiamine HCl (Thiamine Hcl 100 Mg Tablet) 100 mg PO DAILY [facility] Last Admin: 08/18/23 08:35 Dose: 100 mg Trazodone HCl (Trazodone Hcl 50 Mg Tablet) 50 mg PO BEDTIME PRN PRN Reason: Insomnia Last Admin: 08/17/23 20:46 Dose: 50 mg Allergies Allergies Allergy/AdvReac Type Severity Reaction Status Date / Time bee pollen Allergy Anaphylaxis Verified 08/12/23 03:20 Assessment & Plan Assessment & Plan (1) Bipolar disorder with psychotic features: Status: Acute Code(s): F31.9 - Bipolar disorder, unspecified (2) Alcohol use disorder: Status: Acute Code(s): F10.90 - Alcohol use, unspecified, uncomplicated Plan The patient is a middle-aged Y[place] descent female with a past history of schizoaffective disorder bipolar type and dementia who was brought from the community after she was shoplifting at a [employer] and eating raw arroyo, grossly disorganized unable to take care of herself. She was seen by crisis and transferring to this facility for psychiatric stabilization. Plan 1. continue tx. may consult with hospitalist to change DM without lispro as VNA can't go to [facility] times. Reason for continued inpatient stay Substantial Risk for: inability to function Time Spent With Patient Time: Total time managing care of this patient today ____ minutes.
[2023-08-18 11:36] LABS: Glucose, Whole Blood 252 mg/dL (60-115)
[2023-08-18 16:24] LABS: Glucose, Whole Blood 285 mg/dL (60-115)
[2023-08-18 20:00] VITALS: BP 126/76; PULSE 88; RESP 16; TEMP 36.8; O2SAT 97
[2023-08-18 20:08] LABS: Glucose, Whole Blood 275 mg/dL (60-115)
[2023-08-18] MEDS: Melatonin 3 MG TABLET 6 MG PO (20:55)
[2023-08-18] MEDS: Atorvastatin Calcium 40 MG TABLET PO (20:56)
[2023-08-18] MEDS: hydrOXYzine HCL 25 MG TABLET PO (20:57)
[2023-08-18] MEDS: traZODone HCL 50 MG TABLET PO (20:57)
[2023-08-19] MEDS: Omeprazole 40 MG CAPSULE.DR PO (06:31)
[2023-08-19 06:46] LABS: Glucose, Whole Blood 274 mg/dL (60-115)
[2023-08-19 08:00] VITALS: BP 128/62; PULSE 109; RESP 15; TEMP 36.7; O2SAT 97
[2023-08-19] MEDS: glipiZIDE 5 MG TABLET 2.5 MG PO (08:07)
[2023-08-19] MEDS: Lidocaine 4 % Patch ADH..PATCH 1 PATCH TRANSDERMA ×2 (08:07→09:43)
[2023-08-19] MEDS: Nicotine Polacrilex 2 MG GUM BUCCAL ×2 (08:07→14:38)
[2023-08-19] MEDS: Insulin Glargine,Hum.rec.anlog 100 UNIT/ML 10 ML VIAL 25 UNIT SUBCUT (08:08)
[2023-08-19] MEDS: Insulin Lispro 100 UNIT/ML 3 ML VIAL SUBCUT ×4 (08:09→20:27)
[2023-08-19] MEDS: risperiDONE 1 MG TABLET PO ×2 (08:10→20:28)
[2023-08-19] MEDS: Cyanocobalamin (Vitamin B-12) 500 MCG TABLET PO (08:10)
[2023-08-19] MEDS: Aspirin 81 MG TAB.CHEW PO (08:10)
[2023-08-19] MEDS: Pregabalin 150 MG CAPSULE PO ×2 (08:10→20:28)
[2023-08-19] MEDS: Folic Acid 1 MG TABLET PO (08:10)
[2023-08-19] MEDS: clonazePAM 0.5 MG TABLET PO ×2 (08:10→20:29)
[2023-08-19] MEDS: Metoprolol Tartrate 25 MG TABLET PO (08:10)
[2023-08-19] MEDS: Thiamine HCL 100 MG TABLET PO (08:10)
[2023-08-19] MEDS: Acetaminophen 325 MG TABLET 650 MG PO ×3 (08:11→20:29)
--- NOTE | 2023-08-19 09:28 | HO.PSYCHPN ---
Subjective Subjective Date of Service: 08/19/23 Reason For Visit: Psychosis Subjective Notes: Conditional Voluntary Interim History: The nursing staff reported the patient had been compliant with medication. It was noticed that she has an edema 1+. She used all her PRNs yesterday. On interview the patient denies active hallucinations remains most of the time in her room. Socialize at times with peers. Today she reported pain and she asked for stronger pain management. Mental Status Exam Mental Status Exam Patient Appearance: Appropriate Patient Orientation: Person and Situation Level of Consciousness: Awake and Appropriate Patient Behavior: Guarded and Passive Mood Description: Withdrawn Affect Description: Constricted Patient Cognition Impaired: Yes Ability to Follow Directions: Good Speech Pattern: Clear Hallucinations: None Delusions: Not Present Thought Process: Distracted and Slowed Thinking Thought Content: positive for [place] and positive for Poverty of Content Judgement: Fair Diagnostics Vital Signs (24Hr): Vital Signs - 24 hr 08/18/23 20:00 08/19/23 08:00 Temperature 98.2 F 98.1 F Pulse Rate 88 109 H Respiratory Rate 16 15 Blood Pressure 126/76 128/62 Pulse Oximetry 97 97 Oxygen Delivery Method Room Air Room Air BMI result Body Mass Index 34.8 Labs 08/12/23 04:13 08/16/23 09:52 Labs: Laboratory Results - last 48 hr 08/17/23 08/17/23 08/17/23 11:34 16:37 20:35 POC Glucose 294 H 155 H 263 H 08/18/23 08/18/23 08/18/23 06:36 11:27 16:20 POC Glucose 189 H 252 H 285 H 08/18/23 08/19/23 20:04 06:38 POC Glucose 275 H 274 H Medications Medications Current Medications Acetaminophen (Acetaminophen 325 Mg Tablet) 650 mg PO TID [facility] Last Admin: 08/19/23 08:11 Dose: 650 mg Al Hydroxide/Mg Hydroxide (Magnesium Hydrox/Alum Hydrox 30 Ml Oral.Susp) 30 ml PO Q6H PRN PRN Reason: Heartburn/Nausea Albuterol Sulfate (Albuterol Sulfate 90 Mcg 8 Gm Inhaler) 1 puff INHALE RQID PRN PRN Reason: wheezing Aspirin (Aspirin 81 Mg Tab.Chew) 81 mg PO DAILY [facility] Last Admin: 08/19/23 08:10 Dose: 81 mg Atorvastatin Calcium (Atorvastatin Calcium 40 Mg Tablet) 40 mg PO BEDTIME [facility] Last Admin: 08/18/23 20:56 Dose: 40 mg Clonazepam (Clonazepam 0.5 Mg Tablet) 0.5 mg PO BID [facility] Last Admin: 08/19/23 08:10 Dose: 0.5 mg Cyanocobalamin (Cyanocobalamin (Vitamin B-12) 500 Mcg Tablet) 500 mcg PO DAILY [facility] Last Admin: 08/19/23 08:10 Dose: 500 mcg Folic Acid (Folic Acid 1 Mg Tablet) 1 mg PO DAILY [facility] Last Admin: 08/19/23 08:10 Dose: 1 mg Glipizide (Glipizide 5 Mg Tablet) 2.5 mg PO DAILY@0730 [facility] Last Admin: 08/19/23 08:07 Dose: 2.5 mg Guaifenesin (Guaifenesin 100 Mg/5 Ml Liquid) 10 ml PO Q4H PRN PRN Reason: Cough Hydroxyzine HCl (Hydroxyzine Hcl 25 Mg Tablet) 25 mg PO Q6H PRN PRN Reason: Anxiety Last Admin: 08/18/23 20:57 Dose: 25 mg Insulin Glargine (Insulin Glargine,Hum.Rec.Anlog 100 Unit/Ml 10 Ml Vial) 25 unit SUBCUT DAILY [facility] Last Admin: 08/19/23 08:08 Dose: 25 unit Insulin Human Lispro (Insulin Lispro 100 Unit/Ml 3 Ml Vial) 0 unit SUBCUT QIDACHS [facility]; Protocol Last Admin: 08/19/23 08:09 Dose: 6 unit Lidocaine (Lidocaine 4 % Patch Adh..Patch) 1 patch TRANSDERMA DAILY [facility]; Protocol Last Admin: 08/19/23 08:07 Dose: 1 patch Lidocaine (Lidocaine 4 % Patch Adh..Patch) 1 patch TRANSDERMA DAILY [facility]; Protocol Lisinopril (Lisinopril 10 Mg Tablet) 10 mg PO DAILY [facility]; Protocol Last Admin: 08/15/23 08:30 Dose: 10 mg Loperamide HCl (Loperamide Hcl 2 Mg Capsule) 2 mg PO Q6H PRN PRN Reason: loose stool Magnesium Hydroxide (Milk Of Magnesia 30 Ml Oral.Susp) 30 ml PO DAILY PRN PRN Reason: Constipation Melatonin (Melatonin 3 Mg Tablet) 6 mg PO BEDTIME PRN PRN Reason: Insomnia Last Admin: 08/18/23 20:55 Dose: 6 mg Metoprolol Tartrate (Metoprolol Tartrate 25 Mg Tablet) 25 mg PO DAILY [facility]; Protocol Last Admin: 08/19/23 08:10 Dose: 25 mg Nicotine Polacrilex (Nicotine Polacrilex 2 Mg Gum) 2 mg BUCCAL Q2H PRN PRN Reason: Nicotine Cravings Last Admin: 08/19/23 08:07 Dose: 2 mg Omeprazole (Omeprazole 40 Mg Capsule.Dr) 40 mg PO DAILY@0630 [facility] Last Admin: 08/19/23 06:31 Dose: 40 mg Pregabalin (Pregabalin 150 Mg Capsule) 150 mg PO BID [facility] Last Admin: 08/19/23 08:10 Dose: 150 mg Risperidone (Risperidone 1 Mg Tablet) 1 mg PO BID [facility] Last Admin: 08/19/23 08:10 Dose: 1 mg Sumatriptan Succinate (Sumatriptan Succinate 50 Mg Tablet) 50 mg PO DAILY PRN PRN Reason: Migraine Headache Thiamine HCl (Thiamine Hcl 100 Mg Tablet) 100 mg PO DAILY [facility] Last Admin: 08/19/23 08:10 Dose: 100 mg Trazodone HCl (Trazodone Hcl 50 Mg Tablet) 50 mg PO BEDTIME PRN PRN Reason: Insomnia Last Admin: 08/18/23 20:57 Dose: 50 mg Allergies Allergies Allergy/AdvReac Type Severity Reaction Status Date / Time bee pollen Allergy Anaphylaxis Verified 08/12/23 03:20 Assessment & Plan Assessment & Plan (1) Bipolar disorder with psychotic features: Status: Acute Code(s): F31.9 - Bipolar disorder, unspecified (2) Alcohol use disorder: Status: Acute Code(s): F10.90 - Alcohol use, unspecified, uncomplicated Plan The patient is a middle-aged [place]i descent female with a past history of schizoaffective disorder bipolar type and dementia who was brought from the community after she was shoplifting at a [employer] and eating raw arroyo, grossly disorganized unable to take care of herself. She was seen by crisis and transferring to this facility for psychiatric stabilization. Plan 1. continue tx. may consult with hospitalist to change DM without lispro as VNA can't go to [facility] times. 2. Continue with psychiatric medications as prescribed. 3. On August 18 we add tramadol p.r.n. moderate pain. Reason for continued inpatient stay Substantial Risk for: inability to function, rapid decompensation and med/psych decompensation Time Spent With Patient Time: Total time managing care of this patient today __20__ minutes.
[2023-08-19 11:27] LABS: Glucose, Whole Blood 243 mg/dL (60-115)
[2023-08-19] MEDS: hydrOXYzine HCL 25 MG TABLET PO ×2 (14:38→20:30)
[2023-08-19 16:37] LABS: Glucose, Whole Blood 235 mg/dL (60-115)
[2023-08-19 20:00] VITALS: BP 152/74; PULSE 87; RESP 16; TEMP 36.5; O2SAT 97
[2023-08-19 20:09] LABS: Glucose, Whole Blood 256 mg/dL (60-115)
[2023-08-19] MEDS: Melatonin 3 MG TABLET 6 MG PO (20:28)
[2023-08-19] MEDS: traMADoL HCL 50 MG TABLET PO (20:30)
[2023-08-19] MEDS: traZODone HCL 50 MG TABLET PO (20:31)
[2023-08-19] MEDS: Atorvastatin Calcium 40 MG TABLET PO (20:31)
[2023-08-20] MEDS: Omeprazole 40 MG CAPSULE.DR PO (06:31)
[2023-08-20 06:46] LABS: Glucose, Whole Blood 228 mg/dL (60-115)
[2023-08-20] MEDS: Insulin Lispro 100 UNIT/ML 3 ML VIAL SUBCUT ×4 (07:47→20:37)
[2023-08-20 08:02] VITALS: BP 122/74; PULSE 101; RESP 18; TEMP 36.4; O2SAT 98
[2023-08-20 09:12] VITALS: BP 122/74; PULSE 101
[2023-08-20] MEDS: clonazePAM 0.5 MG TABLET PO ×2 (09:12→20:34)
[2023-08-20] MEDS: Thiamine HCL 100 MG TABLET PO (09:12)
[2023-08-20] MEDS: risperiDONE 1 MG TABLET PO ×2 (09:12→20:34)
[2023-08-20] MEDS: Pregabalin 150 MG CAPSULE PO ×2 (09:12→20:34)
[2023-08-20] MEDS: Cyanocobalamin (Vitamin B-12) 500 MCG TABLET PO (09:12)
[2023-08-20] MEDS: Nicotine Polacrilex 2 MG GUM BUCCAL ×3 (09:12→14:01)
[2023-08-20] MEDS: Metoprolol Tartrate 25 MG TABLET PO (09:12)
[2023-08-20] MEDS: Folic Acid 1 MG TABLET PO (09:13)
[2023-08-20] MEDS: Aspirin 81 MG TAB.CHEW PO (09:13)
[2023-08-20] MEDS: glipiZIDE 5 MG TABLET 2.5 MG PO (09:13)
[2023-08-20] MEDS: Acetaminophen 325 MG TABLET 650 MG PO ×3 (09:14→20:34)
[2023-08-20] MEDS: traMADoL HCL 50 MG TABLET PO ×2 (09:14→15:13)
[2023-08-20] MEDS: Insulin Glargine,Hum.rec.anlog 100 UNIT/ML 10 ML VIAL 25 UNIT SUBCUT (09:14)
[2023-08-20] MEDS: Lidocaine 4 % Patch ADH..PATCH 1 PATCH TRANSDERMA ×2 (09:15)
[2023-08-20] MEDS: guaiFENesin 100 MG/5 ML LIQUID 10 ML PO ×2 (09:21→18:51)
--- NOTE | 2023-08-20 09:23 | HO.PSYCHPN ---
Subjective Subjective Date of Service: 08/20/23 Reason For Visit: Psychosis Subjective Notes: Conditional Voluntary Interim History: The nursing staff reported the patient slept 5 hours she had incontinence of urine and it seems that her urine was foul-smelling. On interview the patient asked for opioids and benzodiazepines by told her that at this moment is not an option. We are ordering a new UA. Mental Status Exam Mental Status Exam Patient Appearance: Appropriate Patient Orientation: Person and Situation Level of Consciousness: Awake and Appropriate Patient Behavior: Guarded and Passive Mood Description: Withdrawn Affect Description: Constricted Patient Cognition Impaired: Yes Ability to Follow Directions: Good Speech Pattern: Clear Hallucinations: None Delusions: Not Present Thought Process: Distracted and Slowed Thinking Thought Content: positive for [place] and positive for Poverty of Content Judgement: Fair Diagnostics Vital Signs (24Hr): Vital Signs - 24 hr 08/19/23 20:00 Temperature 97.7 F Pulse Rate 87 Respiratory Rate 16 Blood Pressure 152/74 H Pulse Oximetry 97 Oxygen Delivery Method Room Air BMI result Body Mass Index 34.8 Labs 08/12/23 04:13 08/16/23 09:52 Labs: Laboratory Results - last 48 hr 08/18/23 08/18/23 08/18/23 11:27 16:20 20:04 POC Glucose 252 H 285 H 275 H 08/19/23 08/19/23 08/19/23 06:38 11:23 16:34 POC Glucose 274 H 243 H 235 H 08/19/23 08/20/23 20:00 06:32 POC Glucose 256 H 228 H Medications Medications Current Medications Acetaminophen (Acetaminophen 325 Mg Tablet) 650 mg PO TID [facility] Last Admin: 08/19/23 20:29 Dose: 650 mg Al Hydroxide/Mg Hydroxide (Magnesium Hydrox/Alum Hydrox 30 Ml Oral.Susp) 30 ml PO Q6H PRN PRN Reason: Heartburn/Nausea Albuterol Sulfate (Albuterol Sulfate 90 Mcg 8 Gm Inhaler) 1 puff INHALE RQID PRN PRN Reason: wheezing Aspirin (Aspirin 81 Mg Tab.Chew) 81 mg PO DAILY [facility] Last Admin: 08/19/23 08:10 Dose: 81 mg Atorvastatin Calcium (Atorvastatin Calcium 40 Mg Tablet) 40 mg PO BEDTIME [facility] Last Admin: 08/19/23 20:31 Dose: 40 mg Clonazepam (Clonazepam 0.5 Mg Tablet) 0.5 mg PO BID [facility] Last Admin: 08/19/23 20:29 Dose: 0.5 mg Cyanocobalamin (Cyanocobalamin (Vitamin B-12) 500 Mcg Tablet) 500 mcg PO DAILY [facility] Last Admin: 08/19/23 08:10 Dose: 500 mcg Folic Acid (Folic Acid 1 Mg Tablet) 1 mg PO DAILY [facility] Last Admin: 08/19/23 08:10 Dose: 1 mg Glipizide (Glipizide 5 Mg Tablet) 2.5 mg PO DAILY@0730 [facility] Last Admin: 08/19/23 08:07 Dose: 2.5 mg Guaifenesin (Guaifenesin 100 Mg/5 Ml Liquid) 10 ml PO Q4H PRN PRN Reason: Cough Hydroxyzine HCl (Hydroxyzine Hcl 25 Mg Tablet) 25 mg PO Q6H PRN PRN Reason: Anxiety Last Admin: 08/19/23 20:30 Dose: 25 mg Insulin Glargine (Insulin Glargine,Hum.Rec.Anlog 100 Unit/Ml 10 Ml Vial) 25 unit SUBCUT DAILY [facility] Last Admin: 08/19/23 08:08 Dose: 25 unit Insulin Human Lispro (Insulin Lispro 100 Unit/Ml 3 Ml Vial) 0 unit SUBCUT QIDACHS [facility]; Protocol Last Admin: 08/20/23 07:47 Dose: 4 unit Lidocaine (Lidocaine 4 % Patch Adh..Patch) 1 patch TRANSDERMA DAILY [facility]; Protocol Last Admin: 08/19/23 08:07 Dose: 1 patch Lidocaine (Lidocaine 4 % Patch Adh..Patch) 1 patch TRANSDERMA DAILY [facility]; Protocol Last Admin: 08/19/23 09:43 Dose: 1 patch Lisinopril (Lisinopril 10 Mg Tablet) 10 mg PO DAILY [facility]; Protocol Last Admin: 08/15/23 08:30 Dose: 10 mg Loperamide HCl (Loperamide Hcl 2 Mg Capsule) 2 mg PO Q6H PRN PRN Reason: loose stool Magnesium Hydroxide (Milk Of Magnesia 30 Ml Oral.Susp) 30 ml PO DAILY PRN PRN Reason: Constipation Melatonin (Melatonin 3 Mg Tablet) 6 mg PO BEDTIME PRN PRN Reason: Insomnia Last Admin: 08/19/23 20:28 Dose: 6 mg Metoprolol Tartrate (Metoprolol Tartrate 25 Mg Tablet) 25 mg PO DAILY [facility]; Protocol Last Admin: 08/19/23 08:10 Dose: 25 mg Nicotine Polacrilex (Nicotine Polacrilex 2 Mg Gum) 2 mg BUCCAL Q2H PRN PRN Reason: Nicotine Cravings Last Admin: 08/19/23 14:38 Dose: 2 mg Omeprazole (Omeprazole 40 Mg Capsule.Dr) 40 mg PO DAILY@0630 [facility] Last Admin: 08/20/23 06:31 Dose: 40 mg Pregabalin (Pregabalin 150 Mg Capsule) 150 mg PO BID [facility] Last Admin: 08/19/23 20:28 Dose: 150 mg Risperidone (Risperidone 1 Mg Tablet) 1 mg PO BID [facility] Last Admin: 08/19/23 20:28 Dose: 1 mg Sumatriptan Succinate (Sumatriptan Succinate 50 Mg Tablet) 50 mg PO DAILY PRN PRN Reason: Migraine Headache Thiamine HCl (Thiamine Hcl 100 Mg Tablet) 100 mg PO DAILY [facility] Last Admin: 08/19/23 08:10 Dose: 100 mg Tramadol HCl (Tramadol Hcl 50 Mg Tablet) 50 mg PO Q6H PRN PRN Reason: Pain, Moderate(Pain Scale 4-6) Last Admin: 08/19/23 20:30 Dose: 50 mg Trazodone HCl (Trazodone Hcl 50 Mg Tablet) 50 mg PO BEDTIME PRN PRN Reason: Insomnia Last Admin: 08/19/23 20:31 Dose: 50 mg Allergies Allergies Allergy/AdvReac Type Severity Reaction Status Date / Time bee pollen Allergy Anaphylaxis Verified 08/12/23 03:20 Assessment & Plan Assessment & Plan (1) Bipolar disorder with psychotic features: Status: Acute Code(s): F31.9 - Bipolar disorder, unspecified (2) Alcohol use disorder: Status: Acute Code(s): F10.90 - Alcohol use, unspecified, uncomplicated Plan The patient is a middle-aged Syri[place] descent female with a past history of schizoaffective disorder bipolar type and dementia who was brought from the community after she was shoplifting at a [employer] and eating raw arroyo, grossly disorganized unable to take care of herself. She was seen by crisis and transferring to this facility for psychiatric stabilization. Plan 1. continue tx. may consult with hospitalist to change DM without lispro as VNA can't go to [facility] times. 2. Continue with psychiatric medications as prescribed. 3. On August 18 we add tramadol p.r.n. moderate pain. 4. UA on March 21 due to foul-smelling urine as per staff. Reason for continued inpatient stay Substantial Risk for: inability to function, rapid decompensation and med/psych decompensation Time Spent With Patient Time: Total time managing care of this patient today __20__ minutes.
[2023-08-20 11:22] LABS: Glucose, Whole Blood 175 mg/dL (60-115)
[2023-08-20] MEDS: hydrOXYzine HCL 25 MG TABLET PO (15:13)
[2023-08-20 16:22] LABS: Glucose, Whole Blood 248 mg/dL (60-115)
[2023-08-20 16:47] LABS: Appearance Urine Clear; Color Urine Yellow; Glucose Urine UA >=1000 mg/dL (Negative); Leukocyte Esterase Urine Small (1+) (Negative); Nitrite Urine Negative (Negative); PH 5.5 (5.0-9.0); Specific Gravity - Urine >= 1.030 (1.005-1.025); UMIC TRIGGER UACC YES; Urine Blood Negative (Negative); Urine Ketones Negative (Negative); Urine Protein Negative (Neg-Trace)
[2023-08-20 16:57] LABS: Bacteria Urine 1+ (None Seen); Hyaline Casts Urine 0-2 /LPF (0-2); RBC Urine 0-2 /HPF (0-2); UACC Culture Trigger YES; WBC Urine >50 /HPF (0-5)
[2023-08-20 20:00] VITALS: BP 135/72; PULSE 85; RESP 16; TEMP 36.3; O2SAT 96
[2023-08-20 20:00] LABS: Glucose, Whole Blood 266 mg/dL (60-115)
[2023-08-20] MEDS: Atorvastatin Calcium 40 MG TABLET PO (20:34)
[2023-08-20] MEDS: Melatonin 3 MG TABLET 6 MG PO (20:43)
[2023-08-20] MEDS: traZODone HCL 50 MG TABLET PO (20:43)
[2023-08-21] MEDS: Omeprazole 40 MG CAPSULE.DR PO (06:24)
[2023-08-21 06:46] LABS: Glucose, Whole Blood 253 mg/dL (60-115)
[2023-08-21 08:20] VITALS: BP 127/76; PULSE 105; RESP 18; TEMP 36.1; O2SAT 98
[2023-08-21] MEDS: Insulin Glargine,Hum.rec.anlog 100 UNIT/ML 10 ML VIAL 30 UNIT SUBCUT (08:51)
[2023-08-21] MEDS: Insulin Lispro 100 UNIT/ML 3 ML VIAL SUBCUT ×4 (08:52→22:00)
[2023-08-21] MEDS: glipiZIDE 5 MG TABLET 2.5 MG PO (08:54)
[2023-08-21] MEDS: Acetaminophen 325 MG TABLET 650 MG PO ×3 (08:55→21:16)
[2023-08-21] MEDS: Metoprolol Tartrate 25 MG TABLET PO (08:56)
[2023-08-21] MEDS: Aspirin 81 MG TAB.CHEW PO (08:56)
[2023-08-21] MEDS: clonazePAM 0.5 MG TABLET PO ×2 (08:56→21:15)
[2023-08-21] MEDS: risperiDONE 1 MG TABLET PO ×2 (08:57→21:17)
[2023-08-21] MEDS: Cyanocobalamin (Vitamin B-12) 500 MCG TABLET PO (08:57)
[2023-08-21] MEDS: Pregabalin 150 MG CAPSULE PO ×2 (08:57→21:15)
[2023-08-21] MEDS: Folic Acid 1 MG TABLET PO (08:57)
[2023-08-21] MEDS: Thiamine HCL 100 MG TABLET PO (08:57)
[2023-08-21] MEDS: Lidocaine 4 % Patch ADH..PATCH 1 PATCH TRANSDERMA ×2 (08:58→11:32)
--- NOTE | 2023-08-21 09:16 | PM.EVENT ---
Event Note Date of Service: 08/21/23 Event Note: Lantus increased to 30 units. Please monitor glucose levels and reach out to hospitlist service if persistently hyperglycemic. Signing off at this time. Time Spent With Patient Time: Total time managing care of this patient today ____ minutes.
--- NOTE | 2023-08-21 10:02 | P.PNPSI_ITS ---
Subjective Subjective Date of Service: 08/21/23 Reason For Visit: Psychosis Subjective Notes: Conditional Voluntary Interim History: Pt slept through the night. VS stable. BS more controlled- however, [facility], will only have BNA once a day. Discussed with hospitalist d/c lispro on discharge. continue lantus. will try metformin ER- may have less GI side effects. continue glipizide. She denies SI/HI. No overt signs of psychosis or delusions. No aggression towards self or others. urine culture did show grem neg roxana- will start ceftin 500mg po BID x 7 days. Review of Systems Review of Systems Yes all other systems are reviewed and are negative and Unobtainable due to mental condition Mental Status Exam Mental Status Exam Patient Appearance: Appropriate Patient Orientation: Person and Situation Level of Consciousness: Awake and Appropriate Patient Behavior: Guarded and Passive Mood Description: Withdrawn Affect Description: Constricted Patient Cognition Impaired: Yes Ability to Follow Directions: Good Speech Pattern: Clear Diagnostics Vital Signs (24Hr): Vital Signs - 24 hr 08/20/23 20:00 08/21/23 08:20 Temperature 97.4 F 96.9 F Pulse Rate 85 105 H Respiratory Rate 16 18 Blood Pressure 135/72 127/76 Pulse Oximetry 96 98 Oxygen Delivery Method Room Air Room Air BMI result Body Mass Index 34.8 Labs 08/12/23 04:13 08/16/23 09:52 Labs: Laboratory Results - last 48 hr 08/19/23 08/19/23 08/19/23 11:23 16:34 20:00 POC Glucose 243 H 235 H 256 H Urine Color Urine Appearance Urine pH Ur Specific [place] Urine Protein Urine Glucose (UA) Urine Ketones Urine Blood Urine Nitrite Ur Leukocyte Esterase Urine RBC Urine WBC Ur Squamous Epith Cells Urine Bacteria Hyaline Casts 08/20/23 08/20/23 08/20/23 06:32 11:19 16:12 POC Glucose 228 H 175 H 248 H Urine Color Urine Appearance Urine pH Ur Specific [place] Urine Protein Urine Glucose (UA) Urine Ketones Urine Blood Urine Nitrite Ur Leukocyte Esterase Urine RBC Urine WBC Ur Squamous Epith Cells Urine Bacteria Hyaline Casts 08/20/23 08/20/23 08/21/23 16:22 19:55 06:42 POC Glucose 266 H 253 H Urine Color Yellow Urine Appearance Clear Urine pH 5.5 Ur Specific [place] >= 1.030 H Urine Protein Negative Urine Glucose (UA) >=1000 H Urine Ketones Negative Urine Blood Negative Urine Nitrite Negative Ur Leukocyte Esterase Small (1+) H Urine RBC 0-2 Urine WBC >50 H Ur Squamous Epith Cells 3-5 Urine Bacteria 1+ Hyaline Casts 0-2 Medications Medications Current Medications Acetaminophen (Acetaminophen 325 Mg Tablet) 650 mg PO TID [facility] Last Admin: 08/21/23 08:55 Dose: 650 mg Al Hydroxide/Mg Hydroxide (Magnesium Hydrox/Alum Hydrox 30 Ml Oral.Susp) 30 ml PO Q6H PRN PRN Reason: Heartburn/Nausea Albuterol Sulfate (Albuterol Sulfate 90 Mcg 8 Gm Inhaler) 1 puff INHALE RQID PRN PRN Reason: wheezing Aspirin (Aspirin 81 Mg Tab.Chew) 81 mg PO DAILY [facility] Last Admin: 08/21/23 08:56 Dose: 81 mg Atorvastatin Calcium (Atorvastatin Calcium 40 Mg Tablet) 40 mg PO BEDTIME [facility] Last Admin: 08/20/23 20:34 Dose: 40 mg Clonazepam (Clonazepam 0.5 Mg Tablet) 0.5 mg PO BID [facility] Last Admin: 08/21/23 08:56 Dose: 0.5 mg Cyanocobalamin (Cyanocobalamin (Vitamin B-12) 500 Mcg Tablet) 500 mcg PO DAILY [facility] Last Admin: 08/21/23 08:57 Dose: 500 mcg Folic Acid (Folic Acid 1 Mg Tablet) 1 mg PO DAILY [facility] Last Admin: 08/21/23 08:57 Dose: 1 mg Glipizide (Glipizide 5 Mg Tablet) 2.5 mg PO DAILY@0730 [facility] Last Admin: 08/21/23 08:54 Dose: 2.5 mg Guaifenesin (Guaifenesin 100 Mg/5 Ml Liquid) 10 ml PO Q4H PRN PRN Reason: Cough Last Admin: 08/20/23 18:51 Dose: 10 ml Hydroxyzine HCl (Hydroxyzine Hcl 25 Mg Tablet) 25 mg PO Q6H PRN PRN Reason: Anxiety Last Admin: 08/20/23 15:13 Dose: 25 mg Insulin Glargine (Insulin Glargine,Hum.Rec.Anlog 100 Unit/Ml 10 Ml Vial) 30 unit SUBCUT DAILY [facility] Last Admin: 08/21/23 08:51 Dose: 30 unit Insulin Human Lispro (Insulin Lispro 100 Unit/Ml 3 Ml Vial) 0 unit SUBCUT QIDACHS [facility]; Protocol Last Admin: 08/21/23 08:52 Dose: 6 unit Lidocaine (Lidocaine 4 % Patch Adh..Patch) 1 patch TRANSDERMA DAILY [facility]; Protocol Last Admin: 08/21/23 08:58 Dose: 1 patch Lidocaine (Lidocaine 4 % Patch Adh..Patch) 1 patch TRANSDERMA DAILY [facility]; Protocol Last Admin: 08/20/23 09:15 Dose: 1 patch Lisinopril (Lisinopril 10 Mg Tablet) 10 mg PO DAILY [facility]; Protocol Last Admin: 08/15/23 08:30 Dose: 10 mg Loperamide HCl (Loperamide Hcl 2 Mg Capsule) 2 mg PO Q6H PRN PRN Reason: loose stool Magnesium Hydroxide (Milk Of Magnesia 30 Ml Oral.Susp) 30 ml PO DAILY PRN PRN Reason: Constipation Melatonin (Melatonin 3 Mg Tablet) 6 mg PO BEDTIME PRN PRN Reason: Insomnia Last Admin: 08/20/23 20:43 Dose: 6 mg Metoprolol Tartrate (Metoprolol Tartrate 25 Mg Tablet) 25 mg PO DAILY [facility]; Protocol Last Admin: 08/21/23 08:56 Dose: 25 mg Nicotine Polacrilex (Nicotine Polacrilex 2 Mg Gum) 2 mg BUCCAL Q2H PRN PRN Reason: Nicotine Cravings Last Admin: 08/20/23 14:01 Dose: 2 mg Omeprazole (Omeprazole 40 Mg Capsule.Dr) 40 mg PO DAILY@0630 [facility] Last Admin: 08/21/23 06:24 Dose: 40 mg Pregabalin (Pregabalin 150 Mg Capsule) 150 mg PO BID [facility] Last Admin: 08/21/23 08:57 Dose: 150 mg Risperidone (Risperidone 1 Mg Tablet) 1 mg PO BID [facility] Last Admin: 08/21/23 08:57 Dose: 1 mg Sumatriptan Succinate (Sumatriptan Succinate 50 Mg Tablet) 50 mg PO DAILY PRN PRN Reason: Migraine Headache Thiamine HCl (Thiamine Hcl 100 Mg Tablet) 100 mg PO DAILY [facility] Last Admin: 08/21/23 08:57 Dose: 100 mg Tramadol HCl (Tramadol Hcl 50 Mg Tablet) 50 mg PO Q6H PRN PRN Reason: Pain, Moderate(Pain Scale 4-6) Last Admin: 08/20/23 15:13 Dose: 50 mg Trazodone HCl (Trazodone Hcl 50 Mg Tablet) 50 mg PO BEDTIME PRN PRN Reason: Insomnia Last Admin: 08/20/23 20:43 Dose: 50 mg Allergies Allergies Allergy/AdvReac Type Severity Reaction Status Date / Time bee pollen Allergy Anaphylaxis Verified 08/12/23 03:20 Assessment & Plan Assessment & Plan (1) Bipolar disorder with psychotic features: Status: Acute Code(s): F31.9 - Bipolar disorder, unspecified (2) Alcohol use disorder: Status: Acute Code(s): F10.90 - Alcohol use, unspecified, uncomplicated Plan The patient is a middle-aged [place] descent female with a past history of schizoaffective disorder bipolar type and dementia who was brought from the community after she was shoplifting at a [employer] store and eating raw arroyo, grossly disorganized unable to take care of herself. She was seen by crisis and transferring to this facility for psychiatric stabilization. Plan 1. continue tx. On discharge, will d/c lispro. continue lantus. started on metformin ER 500mg po daily. urine culture +gram neg roxana- start ceftin 500mg po BID x 7 days. Reason for continued inpatient stay Substantial Risk for: inability to function Time Spent With Patient Time: Total time managing care of this patient today ____ minutes.
[2023-08-21] MEDS: Nicotine Polacrilex 2 MG GUM BUCCAL ×3 (11:33→21:16)
[2023-08-21 11:34] LABS: Glucose, Whole Blood 198 mg/dL (60-115)
[2023-08-21] MEDS: hydrOXYzine HCL 25 MG TABLET PO ×2 (14:51→21:17)
--- NOTE | 2023-08-21 15:23 | PC.NURSE ---
Patient using many prn's today. Preliminary urine culture shows greater than 100,000 gram negative rods, no sensitivities are available yet. Bhavani Matthews NP updated.
[2023-08-21 16:16] LABS: Glucose, Whole Blood 275 mg/dL (60-115)
--- NOTE | 2023-08-21 19:34 | PC.NURSE ---
New order obtained for Ceftin 500mg PO BID x7 days for UTI today, medication to start tonight.
[2023-08-21 20:00] VITALS: BP 108/51; PULSE 95; RESP 18; TEMP 36.6; O2SAT 98
[2023-08-21 20:41] LABS: Glucose, Whole Blood 235 mg/dL (60-115)
[2023-08-21] MEDS: guaiFENesin 100 MG/5 ML LIQUID 10 ML PO (21:14)
[2023-08-21] MEDS: cefuroxime axetiL 500 MG TABLET PO (21:15)
[2023-08-21] MEDS: traMADoL HCL 50 MG TABLET PO (21:15)
[2023-08-21] MEDS: Atorvastatin Calcium 40 MG TABLET PO (21:16)
[2023-08-21] MEDS: traZODone HCL 50 MG TABLET PO (21:16)
[2023-08-21] MEDS: Melatonin 3 MG TABLET 6 MG PO (21:17)
[2023-08-22] MEDS: Omeprazole 40 MG CAPSULE.DR PO (05:55)
[2023-08-22 06:13] LABS: Glucose, Whole Blood 172 mg/dL (60-115)
[2023-08-22] MEDS: Insulin Lispro 100 UNIT/ML 3 ML VIAL SUBCUT ×4 (07:54→21:08)
[2023-08-22] MEDS: Insulin Glargine,Hum.rec.anlog 100 UNIT/ML 10 ML VIAL 30 UNIT SUBCUT (07:54)
[2023-08-22 09:01] VITALS: BP 132/73; PULSE 104; RESP 18; TEMP 36.9; O2SAT 100
[2023-08-22] MEDS: Folic Acid 1 MG TABLET PO (09:05)
[2023-08-22] MEDS: Pregabalin 150 MG CAPSULE PO ×2 (09:05→21:09)
[2023-08-22] MEDS: Cyanocobalamin (Vitamin B-12) 500 MCG TABLET PO (09:05)
[2023-08-22] MEDS: cefuroxime axetiL 500 MG TABLET PO ×2 (09:05→21:08)
[2023-08-22] MEDS: Aspirin 81 MG TAB.CHEW PO (09:05)
[2023-08-22] MEDS: glipiZIDE 5 MG TABLET 2.5 MG PO (09:05)
[2023-08-22] MEDS: Acetaminophen 325 MG TABLET 650 MG PO ×3 (09:06→21:07)
[2023-08-22] MEDS: metFORMIN HCl ER 500 MG TAB.ER.24H PO (09:08)
[2023-08-22] MEDS: Lidocaine 4 % Patch ADH..PATCH 1 PATCH TRANSDERMA ×2 (09:08→09:09)
[2023-08-22] MEDS: Thiamine HCL 100 MG TABLET PO (09:08)
[2023-08-22] MEDS: Metoprolol Tartrate 25 MG TABLET PO (09:08)
[2023-08-22] MEDS: risperiDONE 1 MG TABLET PO ×2 (09:08→21:09)
[2023-08-22] MEDS: clonazePAM 0.5 MG TABLET PO ×2 (09:09→21:08)
--- NOTE | 2023-08-22 10:55 | P.PNPSI_ITS ---
Subjective Subjective Date of Service: 08/22/23 Reason For Visit: Psychosis Subjective Notes: Conditional Voluntary Interim History: Pt slept through the night. Pt has been visible on the unit. She is pleasant on approach. She denies SI/HI. No overt psychosis or delusions. Some memory concerns evident in form of retaining information, and she was confused as to what day is today, thought it was Monday. She is taking medications as prescribed. No behavioral concerns. Review of Systems Review of Systems Yes all other systems are reviewed and are negative and Unobtainable due to mental condition Mental Status Exam Mental Status Exam Patient Appearance: Appropriate Patient Orientation: Person and Situation Level of Consciousness: Awake and Appropriate Patient Behavior: Guarded and Passive Mood Description: Withdrawn Affect Description: Constricted Patient Cognition Impaired: Yes Ability to Follow Directions: Good Speech Pattern: Clear Diagnostics Vital Signs (24Hr): Vital Signs - 24 hr 08/21/23 20:00 08/22/23 09:01 Temperature 97.8 F 98.4 F Pulse Rate 95 104 H Respiratory Rate 18 18 Blood Pressure 108/51 L 132/73 Pulse Oximetry 98 100 Oxygen Delivery Method Room Air Room Air BMI result Body Mass Index 34.8 Labs 08/12/23 04:13 08/23/23 07:56 Labs: Laboratory Results - last 48 hr 08/20/23 08/20/23 08/20/23 11:19 16:12 16:22 POC Glucose 175 H 248 H Urine Color Yellow Urine Appearance Clear Urine pH 5.5 Ur Specific [place] >= 1.030 H Urine Protein Negative Urine Glucose (UA) >=1000 H Urine Ketones Negative Urine Blood Negative Urine Nitrite Negative Ur Leukocyte Esterase Small (1+) H Urine RBC 0-2 Urine WBC >50 H Ur Squamous Epith Cells 3-5 Urine Bacteria 1+ Hyaline Casts 0-2 08/20/23 08/21/23 08/21/23 19:55 06:42 11:24 POC Glucose 266 H 253 H 198 H Urine Color Urine Appearance Urine pH Ur Specific [place] Urine Protein Urine Glucose (UA) Urine Ketones Urine Blood Urine Nitrite Ur Leukocyte Esterase Urine RBC Urine WBC Ur Squamous Epith Cells Urine Bacteria Hyaline Casts 08/21/23 08/21/23 08/22/23 16:11 20:37 06:01 POC Glucose 275 H 235 H 172 H Urine Color Urine Appearance Urine pH Ur Specific [place] Urine Protein Urine Glucose (UA) Urine Ketones Urine Blood Urine Nitrite Ur Leukocyte Esterase Urine RBC Urine WBC Ur Squamous Epith Cells Urine Bacteria Hyaline Casts Medications Medications Current Medications Acetaminophen (Acetaminophen 325 Mg Tablet) 650 mg PO TID [facility] Last Admin: 08/22/23 09:06 Dose: 650 mg Al Hydroxide/Mg Hydroxide (Magnesium Hydrox/Alum Hydrox 30 Ml Oral.Susp) 30 ml PO Q6H PRN PRN Reason: Heartburn/Nausea Albuterol Sulfate (Albuterol Sulfate 90 Mcg 8 Gm Inhaler) 1 puff INHALE RQID PRN PRN Reason: wheezing Aspirin (Aspirin 81 Mg Tab.Chew) 81 mg PO DAILY [facility] Last Admin: 08/22/23 09:05 Dose: 81 mg Atorvastatin Calcium (Atorvastatin Calcium 40 Mg Tablet) 40 mg PO BEDTIME [facility] Last Admin: 08/21/23 21:16 Dose: 40 mg Cefuroxime Axetil (Cefuroxime Axetil 500 Mg Tablet) 500 mg PO BID [facility] Stop: 08/28/23 09:01 Last Admin: 08/22/23 09:05 Dose: 500 mg Clonazepam (Clonazepam 0.5 Mg Tablet) 0.5 mg PO BID [facility] Last Admin: 08/22/23 09:09 Dose: 0.5 mg Cyanocobalamin (Cyanocobalamin (Vitamin B-12) 500 Mcg Tablet) 500 mcg PO DAILY [facility] Last Admin: 08/22/23 09:05 Dose: 500 mcg Folic Acid (Folic Acid 1 Mg Tablet) 1 mg PO DAILY [facility] Last Admin: 08/22/23 09:05 Dose: 1 mg Glipizide (Glipizide 5 Mg Tablet) 2.5 mg PO DAILY@0730 [facility] Last Admin: 08/22/23 09:05 Dose: 2.5 mg Guaifenesin (Guaifenesin 100 Mg/5 Ml Liquid) 10 ml PO Q4H PRN PRN Reason: Cough Last Admin: 08/21/23 21:14 Dose: 10 ml Hydroxyzine HCl (Hydroxyzine Hcl 25 Mg Tablet) 25 mg PO Q6H PRN PRN Reason: Anxiety Last Admin: 08/21/23 21:17 Dose: 25 mg Insulin Glargine (Insulin Glargine,Hum.Rec.Anlog 100 Unit/Ml 10 Ml Vial) 30 unit SUBCUT DAILY [facility] Last Admin: 08/22/23 07:54 Dose: 30 unit Insulin Human Lispro (Insulin Lispro 100 Unit/Ml 3 Ml Vial) 0 unit SUBCUT QIDACHS [facility]; Protocol Last Admin: 08/22/23 07:54 Dose: 2 unit Lidocaine (Lidocaine 4 % Patch Adh..Patch) 1 patch TRANSDERMA DAILY [facility]; Protocol Last Admin: 08/22/23 09:08 Dose: 1 patch Lidocaine (Lidocaine 4 % Patch Adh..Patch) 1 patch TRANSDERMA DAILY [facility]; Protocol Last Admin: 08/22/23 09:09 Dose: 1 patch Lisinopril (Lisinopril 10 Mg Tablet) 10 mg PO DAILY [facility]; Protocol Last Admin: 08/15/23 08:30 Dose: 10 mg Loperamide HCl (Loperamide Hcl 2 Mg Capsule) 2 mg PO Q6H PRN PRN Reason: loose stool Magnesium Hydroxide (Milk Of Magnesia 30 Ml Oral.Susp) 30 ml PO DAILY PRN PRN Reason: Constipation Melatonin (Melatonin 3 Mg Tablet) 6 mg PO BEDTIME PRN PRN Reason: Insomnia Last Admin: 08/21/23 21:17 Dose: 6 mg Metformin HCl (Metformin Hcl Er 500 Mg Tab.Er.24h) 500 mg PO DAILY [facility] Last Admin: 08/22/23 09:08 Dose: 500 mg Metoprolol Tartrate (Metoprolol Tartrate 25 Mg Tablet) 25 mg PO DAILY [facility]; Protocol Last Admin: 08/22/23 09:08 Dose: 25 mg Nicotine Polacrilex (Nicotine Polacrilex 2 Mg Gum) 2 mg BUCCAL Q2H PRN PRN Reason: Nicotine Cravings Last Admin: 08/21/23 21:16 Dose: 2 mg Omeprazole (Omeprazole 40 Mg Capsule.Dr) 40 mg PO DAILY@0630 [facility] Last Admin: 08/22/23 05:55 Dose: 40 mg Pregabalin (Pregabalin 150 Mg Capsule) 150 mg PO BID [facility] Last Admin: 08/22/23 09:05 Dose: 150 mg Risperidone (Risperidone 1 Mg Tablet) 1 mg PO BID [facility] Last Admin: 08/22/23 09:08 Dose: 1 mg Sumatriptan Succinate (Sumatriptan Succinate 50 Mg Tablet) 50 mg PO DAILY PRN PRN Reason: Migraine Headache Thiamine HCl (Thiamine Hcl 100 Mg Tablet) 100 mg PO DAILY [facility] Last Admin: 08/22/23 09:08 Dose: 100 mg Tramadol HCl (Tramadol Hcl 50 Mg Tablet) 50 mg PO Q6H PRN PRN Reason: Pain, Moderate(Pain Scale 4-6) Last Admin: 08/21/23 21:15 Dose: 50 mg Trazodone HCl (Trazodone Hcl 50 Mg Tablet) 50 mg PO BEDTIME PRN PRN Reason: Insomnia Last Admin: 08/21/23 21:16 Dose: 50 mg Allergies Allergies Allergy/AdvReac Type Severity Reaction Status Date / Time bee pollen Allergy Anaphylaxis Verified 08/12/23 03:20 Assessment & Plan Assessment & Plan (1) Bipolar disorder with psychotic features: Status: Acute Code(s): F31.9 - Bipolar disorder, unspecified (2) Alcohol use disorder: Status: Acute Code(s): F10.90 - Alcohol use, unspecified, uncomplicated Plan The patient is a middle-aged [place] descent female with a past history of schizoaffective disorder bipolar type and dementia who was brought from the community after she was shoplifting at a [employer] store and eating raw arroyo, grossly disorganized unable to take care of herself. She was seen by crisis and transferring to this facility for psychiatric stabilization. Plan 08/20. continue tx. On discharge, will d/c lispro. continue lantus. started on metformin ER 500mg po daily. urine culture +gram neg roxana- start ceftin 500mg po BID x 7 days. 08/21 continue tx. Reason for continued inpatient stay Substantial Risk for: inability to function Time Spent With Patient Time: Total time managing care of this patient today ____ minutes.
[2023-08-22 11:36] LABS: Glucose, Whole Blood 161 mg/dL (60-115)
[2023-08-22] MEDS: hydrOXYzine HCL 25 MG TABLET PO (15:08)
[2023-08-22] MEDS: Nicotine Polacrilex 2 MG GUM BUCCAL ×3 (15:13→21:13)
[2023-08-22 16:37] LABS: Glucose, Whole Blood 155 mg/dL (60-115)
[2023-08-22 20:00] VITALS: BP 110/54; PULSE 89; RESP 18; TEMP 36.9; O2SAT 92
[2023-08-22 20:11] LABS: Glucose, Whole Blood 216 mg/dL (60-115)
[2023-08-22] MEDS: Atorvastatin Calcium 40 MG TABLET PO (21:08)
[2023-08-22] MEDS: traZODone HCL 50 MG TABLET PO (21:09)
[2023-08-23] MEDS: Omeprazole 40 MG CAPSULE.DR PO (05:56)
[2023-08-23 06:47] LABS: Glucose, Whole Blood 233 mg/dL (60-115)
[2023-08-23 07:55] VITALS: BP 135/77; PULSE 99; RESP 18; TEMP 36.8; O2SAT 98
[2023-08-23 08:01] VITALS: BP 135/77; PULSE 99
[2023-08-23] MEDS: risperiDONE 1 MG TABLET PO ×2 (08:01→21:18)
[2023-08-23] MEDS: Acetaminophen 325 MG TABLET 650 MG PO ×3 (08:01→21:16)
[2023-08-23] MEDS: Metoprolol Tartrate 25 MG TABLET PO (08:01)
[2023-08-23] MEDS: Pregabalin 150 MG CAPSULE PO ×2 (08:01→21:18)
[2023-08-23] MEDS: Cyanocobalamin (Vitamin B-12) 500 MCG TABLET PO (08:01)
[2023-08-23] MEDS: cefuroxime axetiL 500 MG TABLET PO ×2 (08:02→21:17)
[2023-08-23] MEDS: clonazePAM 0.5 MG TABLET PO ×2 (08:02→21:17)
[2023-08-23] MEDS: Aspirin 81 MG TAB.CHEW PO (08:02)
[2023-08-23] MEDS: Thiamine HCL 100 MG TABLET PO (08:02)
[2023-08-23] MEDS: metFORMIN HCl ER 500 MG TAB.ER.24H PO (08:02)
[2023-08-23] MEDS: glipiZIDE 5 MG TABLET 2.5 MG PO (08:02)
[2023-08-23] MEDS: Folic Acid 1 MG TABLET PO (08:02)
[2023-08-23] MEDS: Insulin Glargine,Hum.rec.anlog 100 UNIT/ML 10 ML VIAL 30 UNIT SUBCUT (08:03)
[2023-08-23] MEDS: Insulin Lispro 100 UNIT/ML 3 ML VIAL SUBCUT ×4 (08:03→21:18)
[2023-08-23] MEDS: Lidocaine 4 % Patch ADH..PATCH 1 PATCH TRANSDERMA ×2 (08:04→08:05)
[2023-08-23 08:17] LABS: Creatinine Clr Calc Pharmacy 76.9; Estimated Glomerular Filt Rate > 60
[2023-08-23] MEDS: Nicotine Polacrilex 2 MG GUM BUCCAL ×3 (08:17→21:19)
[2023-08-23] MEDS: guaiFENesin 100 MG/5 ML LIQUID 10 ML PO (08:17)
--- NOTE | 2023-08-23 10:56 | P.PNPSI_ITS ---
Subjective Subjective Date of Service: 08/23/23 Reason For Visit: Psychosis Subjective Notes: Conditional Voluntary Interim History: Pt slept through the night. Pt reports doing well. Pt has been visible on the unit. She is pleasant on approach. She denies SI/HI. No overt psychosis or delusions. She is taking medications as prescribed. No behavioral concerns. Review of Systems Review of Systems Yes all other systems are reviewed and are negative and Unobtainable due to mental condition Mental Status Exam Mental Status Exam Patient Appearance: Appropriate Patient Orientation: Person and Situation Level of Consciousness: Awake and Appropriate Patient Behavior: Guarded and Passive Mood Description: Withdrawn Affect Description: Constricted Patient Cognition Impaired: Yes Ability to Follow Directions: Good Speech Pattern: Clear Diagnostics Vital Signs (24Hr): Vital Signs - 24 hr 08/22/23 20:00 08/23/23 07:55 08/23/23 08:01 Temperature 98.4 F 98.2 F Pulse Rate 89 99 99 Respiratory Rate 18 18 Blood Pressure 110/54 L 135/77 135/77 Pulse Oximetry 92 98 Oxygen Delivery Method Room Air Room Air BMI result Body Mass Index 34.8 Labs 08/12/23 04:13 08/23/23 07:56 Labs: Laboratory Results - last 48 hr 08/21/23 08/21/23 08/21/23 11:24 16:11 20:37 Creatinine Estim Creat Clear Calc Estimated GFR POC Glucose 198 H 275 H 235 H 08/22/23 08/22/23 08/22/23 06:01 11:31 16:26 Creatinine Estim Creat Clear Calc Estimated GFR POC Glucose 172 H 161 H 155 H 08/22/23 08/23/23 08/23/23 20:00 06:30 07:56 Creatinine 0.75 Estim Creat Clear Calc 76.9 Estimated GFR > 60 POC Glucose 216 H 233 H Medications Medications Current Medications Acetaminophen (Acetaminophen 325 Mg Tablet) 650 mg PO TID [facility] Last Admin: 08/23/23 08:01 Dose: 650 mg Al Hydroxide/Mg Hydroxide (Magnesium Hydrox/Alum Hydrox 30 Ml Oral.Susp) 30 ml PO Q6H PRN PRN Reason: Heartburn/Nausea Albuterol Sulfate (Albuterol Sulfate 90 Mcg 8 Gm Inhaler) 1 puff INHALE RQID PRN PRN Reason: wheezing Aspirin (Aspirin 81 Mg Tab.Chew) 81 mg PO DAILY [facility] Last Admin: 08/23/23 08:02 Dose: 81 mg Atorvastatin Calcium (Atorvastatin Calcium 40 Mg Tablet) 40 mg PO BEDTIME [facility] Last Admin: 08/22/23 21:08 Dose: 40 mg Cefuroxime Axetil (Cefuroxime Axetil 500 Mg Tablet) 500 mg PO BID [facility] Stop: 08/28/23 09:01 Last Admin: 08/23/23 08:02 Dose: 500 mg Clonazepam (Clonazepam 0.5 Mg Tablet) 0.5 mg PO BID [facility] Last Admin: 08/23/23 08:02 Dose: 0.5 mg Cyanocobalamin (Cyanocobalamin (Vitamin B-12) 500 Mcg Tablet) 500 mcg PO DAILY [facility] Last Admin: 08/23/23 08:01 Dose: 500 mcg Folic Acid (Folic Acid 1 Mg Tablet) 1 mg PO DAILY [facility] Last Admin: 08/23/23 08:02 Dose: 1 mg Glipizide (Glipizide 5 Mg Tablet) 2.5 mg PO DAILY@0730 [facility] Last Admin: 08/23/23 08:02 Dose: 2.5 mg Guaifenesin (Guaifenesin 100 Mg/5 Ml Liquid) 10 ml PO Q4H PRN PRN Reason: Cough Last Admin: 08/23/23 08:17 Dose: 10 ml Hydroxyzine HCl (Hydroxyzine Hcl 25 Mg Tablet) 25 mg PO Q6H PRN PRN Reason: Anxiety Last Admin: 08/22/23 15:08 Dose: 25 mg Insulin Glargine (Insulin Glargine,Hum.Rec.Anlog 100 Unit/Ml 10 Ml Vial) 30 unit SUBCUT DAILY [facility] Last Admin: 08/23/23 08:03 Dose: 30 unit Insulin Human Lispro (Insulin Lispro 100 Unit/Ml 3 Ml Vial) 0 unit SUBCUT QIDACHS [facility]; Protocol Last Admin: 08/23/23 08:03 Dose: 4 unit Lidocaine (Lidocaine 4 % Patch Adh..Patch) 1 patch TRANSDERMA DAILY [facility]; Protocol Last Admin: 08/23/23 08:05 Dose: 1 patch Lidocaine (Lidocaine 4 % Patch Adh..Patch) 1 patch TRANSDERMA DAILY [facility]; Protocol Last Admin: 08/23/23 08:04 Dose: 1 patch Lisinopril (Lisinopril 10 Mg Tablet) 10 mg PO DAILY [facility]; Protocol Last Admin: 08/15/23 08:30 Dose: 10 mg Loperamide HCl (Loperamide Hcl 2 Mg Capsule) 2 mg PO Q6H PRN PRN Reason: loose stool Magnesium Hydroxide (Milk Of Magnesia 30 Ml Oral.Susp) 30 ml PO DAILY PRN PRN Reason: Constipation Melatonin (Melatonin 3 Mg Tablet) 6 mg PO BEDTIME PRN PRN Reason: Insomnia Last Admin: 08/21/23 21:17 Dose: 6 mg Metformin HCl (Metformin Hcl Er 500 Mg Tab.Er.24h) 500 mg PO DAILY [facility] Last Admin: 08/23/23 08:02 Dose: 500 mg Metoprolol Tartrate (Metoprolol Tartrate 25 Mg Tablet) 25 mg PO DAILY [facility]; Protocol Last Admin: 08/23/23 08:01 Dose: 25 mg Nicotine Polacrilex (Nicotine Polacrilex 2 Mg Gum) 2 mg BUCCAL Q2H PRN PRN Reason: Nicotine Cravings Last Admin: 08/23/23 08:17 Dose: 2 mg Omeprazole (Omeprazole 40 Mg Capsule.Dr) 40 mg PO DAILY@0630 [facility] Last Admin: 08/23/23 05:56 Dose: 40 mg Pregabalin (Pregabalin 150 Mg Capsule) 150 mg PO BID [facility] Last Admin: 08/23/23 08:01 Dose: 150 mg Risperidone (Risperidone 1 Mg Tablet) 1 mg PO BID [facility] Last Admin: 08/23/23 08:01 Dose: 1 mg Sumatriptan Succinate (Sumatriptan Succinate 50 Mg Tablet) 50 mg PO DAILY PRN PRN Reason: Migraine Headache Thiamine HCl (Thiamine Hcl 100 Mg Tablet) 100 mg PO DAILY [facility] Last Admin: 08/23/23 08:02 Dose: 100 mg Tramadol HCl (Tramadol Hcl 50 Mg Tablet) 50 mg PO Q6H PRN PRN Reason: Pain, Moderate(Pain Scale 4-6) Last Admin: 08/21/23 21:15 Dose: 50 mg Trazodone HCl (Trazodone Hcl 50 Mg Tablet) 50 mg PO BEDTIME PRN PRN Reason: Insomnia Last Admin: 08/22/23 21:09 Dose: 50 mg Allergies Allergies Allergy/AdvReac Type Severity Reaction Status Date / Time bee pollen Allergy Anaphylaxis Verified 08/12/23 03:20 Assessment & Plan Assessment & Plan (1) Bipolar disorder with psychotic features: Status: Acute Code(s): F31.9 - Bipolar disorder, unspecified (2) Alcohol use disorder: Status: Acute Code(s): F10.90 - Alcohol use, unspecified, uncomplicated Plan The patient is a middle-aged [place] descent female with a past history of schizoaffective disorder bipolar type and dementia who was brought from the community after she was shoplifting at a [employer] and eating raw arroyo, grossly disorganized unable to take care of herself. She was seen by crisis and transferring to this facility for psychiatric stabilization. Plan 08/20. continue tx. On discharge, will d/c lispro. continue lantus. started on metformin ER 500mg po daily. urine culture +gram neg roxana- start ceftin 500mg po BID x 7 days. 08/21 continue tx. 08/22 continue tx. Reason for continued inpatient stay Substantial Risk for: inability to function Time Spent With Patient Time: Total time managing care of this patient today ____ minutes.
[2023-08-23 11:37] LABS: Glucose, Whole Blood 190 mg/dL (60-115)
[2023-08-23] MEDS: hydrOXYzine HCL 25 MG TABLET PO (14:36)
[2023-08-23 16:18] LABS: Glucose, Whole Blood 172 mg/dL (60-115)
[2023-08-23 20:00] VITALS: BP 114/56; PULSE 94; RESP 18; TEMP 36.1; O2SAT 96
[2023-08-23 20:34] LABS: Glucose, Whole Blood 248 mg/dL (60-115)
[2023-08-23] MEDS: Atorvastatin Calcium 40 MG TABLET PO (21:17)
[2023-08-23] MEDS: traZODone HCL 50 MG TABLET PO (21:19)
[2023-08-23] MEDS: Melatonin 3 MG TABLET 6 MG PO (21:19)
[2023-08-24] MEDS: Omeprazole 40 MG CAPSULE.DR PO (06:04)
[2023-08-24 06:45] LABS: Glucose, Whole Blood 271 mg/dL (60-115)
[2023-08-24 07:00] VITALS: BMI 36.3
[2023-08-24 07:55] VITALS: BP 130/78; PULSE 100; RESP 18; TEMP 36.6; O2SAT 98
[2023-08-24] MEDS: Lidocaine 4 % Patch ADH..PATCH 1 PATCH TRANSDERMA ×2 (07:56→07:57)
[2023-08-24] MEDS: Insulin Glargine,Hum.rec.anlog 100 UNIT/ML 10 ML VIAL 30 UNIT SUBCUT (07:59)
[2023-08-24] MEDS: Insulin Lispro 100 UNIT/ML 3 ML VIAL SUBCUT ×4 (07:59→21:07)
[2023-08-24] MEDS: Folic Acid 1 MG TABLET PO (07:59)
[2023-08-24] MEDS: Thiamine HCL 100 MG TABLET PO (07:59)
[2023-08-24] MEDS: Cyanocobalamin (Vitamin B-12) 500 MCG TABLET PO (07:59)
[2023-08-24] MEDS: Pregabalin 150 MG CAPSULE PO ×2 (07:59→21:05)
[2023-08-24] MEDS: metFORMIN HCl ER 500 MG TAB.ER.24H PO (08:00)
[2023-08-24] MEDS: risperiDONE 1 MG TABLET PO ×2 (08:00→21:05)
[2023-08-24] MEDS: Metoprolol Tartrate 25 MG TABLET PO (08:00)
[2023-08-24] MEDS: cefuroxime axetiL 500 MG TABLET PO ×2 (08:00→21:05)
[2023-08-24] MEDS: clonazePAM 0.5 MG TABLET PO ×2 (08:01→21:06)
[2023-08-24] MEDS: Acetaminophen 325 MG TABLET 650 MG PO ×3 (08:01→21:05)
[2023-08-24] MEDS: glipiZIDE 5 MG TABLET 2.5 MG PO (08:01)
[2023-08-24] MEDS: Aspirin 81 MG TAB.CHEW PO (08:01)
[2023-08-24 11:35] LABS: Glucose, Whole Blood 200 mg/dL (60-115)
--- NOTE | 2023-08-24 11:40 | HO.PSYCHPN ---
Subjective Subjective Date of Service: 08/24/23 Reason For Visit: Psychosis Interim History: Pt slept through the night. Pt in bed when seen; alert and cooperative; has been visible on the unit. She is pleasant on approach. She denies SI/HI. No overt psychosis or delusions. She is taking medications as prescribed. No behavioral concerns. Medication Compliance: Yes Side effects from medications: No Attending Groups: Yes Review of Systems Review of Systems Yes all other systems are reviewed and are negative and Unobtainable due to mental condition Mental Status Exam Mental Status Exam Patient Appearance: Appropriate Patient Orientation: Person and Situation Level of Consciousness: Awake and Appropriate Patient Behavior: Guarded and Passive Mood Description: Withdrawn Affect Description: Constricted Patient Cognition Impaired: Yes Ability to Follow Directions: Good Speech Pattern: Clear Diagnostics Vital Signs (24Hr): Vital Signs - 24 hr 08/23/23 20:00 08/24/23 07:55 Temperature 96.9 F 97.9 F Pulse Rate 94 100 Respiratory Rate 18 18 Blood Pressure 114/56 L 130/78 Pulse Oximetry 96 98 Oxygen Delivery Method Room Air Room Air BMI result Body Mass Index 36.3 Labs 08/12/23 04:13 08/23/23 07:56 Labs: Laboratory Results - last 48 hr 08/22/23 08/22/23 08/23/23 16:26 20:00 06:30 Creatinine Estim Creat Clear Calc Estimated GFR POC Glucose 155 H 216 H 233 H 08/23/23 08/23/23 08/23/23 07:56 11:33 16:14 Creatinine 0.75 Estim Creat Clear Calc 76.9 Estimated GFR > 60 POC Glucose 190 H 172 H 08/23/23 08/24/23 08/24/23 20:28 06:38 11:24 Creatinine Estim Creat Clear Calc Estimated GFR POC Glucose 248 H 271 H 200 H Medications Medications Current Medications Acetaminophen (Acetaminophen 325 Mg Tablet) 650 mg PO TID [facility] Last Admin: 08/24/23 08:01 Dose: 650 mg Al Hydroxide/Mg Hydroxide (Magnesium Hydrox/Alum Hydrox 30 Ml Oral.Susp) 30 ml PO Q6H PRN PRN Reason: Heartburn/Nausea Albuterol Sulfate (Albuterol Sulfate 90 Mcg 8 Gm Inhaler) 1 puff INHALE RQID PRN PRN Reason: wheezing Aspirin (Aspirin 81 Mg Tab.Chew) 81 mg PO DAILY [facility] Last Admin: 08/24/23 08:01 Dose: 81 mg Atorvastatin Calcium (Atorvastatin Calcium 40 Mg Tablet) 40 mg PO BEDTIME [facility] Last Admin: 08/23/23 21:17 Dose: 40 mg Cefuroxime Axetil (Cefuroxime Axetil 500 Mg Tablet) 500 mg PO BID [facility] Stop: 08/28/23 09:01 Last Admin: 08/24/23 08:00 Dose: 500 mg Clonazepam (Clonazepam 0.5 Mg Tablet) 0.5 mg PO BID [facility] Last Admin: 08/24/23 08:01 Dose: 0.5 mg Cyanocobalamin (Cyanocobalamin (Vitamin B-12) 500 Mcg Tablet) 500 mcg PO DAILY [facility] Last Admin: 08/24/23 07:59 Dose: 500 mcg Folic Acid (Folic Acid 1 Mg Tablet) 1 mg PO DAILY [facility] Last Admin: 08/24/23 07:59 Dose: 1 mg Glipizide (Glipizide 5 Mg Tablet) 2.5 mg PO DAILY@0730 [facility] Last Admin: 08/24/23 08:01 Dose: 2.5 mg Guaifenesin (Guaifenesin 100 Mg/5 Ml Liquid) 10 ml PO Q4H PRN PRN Reason: Cough Last Admin: 08/23/23 08:17 Dose: 10 ml Hydroxyzine HCl (Hydroxyzine Hcl 25 Mg Tablet) 25 mg PO Q6H PRN PRN Reason: Anxiety Last Admin: 08/23/23 14:36 Dose: 25 mg Insulin Glargine (Insulin Glargine,Hum.Rec.Anlog 100 Unit/Ml 10 Ml Vial) 30 unit SUBCUT DAILY [facility] Last Admin: 08/24/23 07:59 Dose: 30 unit Insulin Human Lispro (Insulin Lispro 100 Unit/Ml 3 Ml Vial) 0 unit SUBCUT QIDACHS [facility]; Protocol Last Admin: 08/24/23 07:59 Dose: 6 unit Lidocaine (Lidocaine 4 % Patch Adh..Patch) 1 patch TRANSDERMA DAILY [facility]; Protocol Last Admin: 08/24/23 07:57 Dose: 1 patch Lidocaine (Lidocaine 4 % Patch Adh..Patch) 1 patch TRANSDERMA DAILY [facility]; Protocol Last Admin: 08/24/23 07:56 Dose: 1 patch Lisinopril (Lisinopril 10 Mg Tablet) 10 mg PO DAILY [facility]; Protocol Last Admin: 08/15/23 08:30 Dose: 10 mg Loperamide HCl (Loperamide Hcl 2 Mg Capsule) 2 mg PO Q6H PRN PRN Reason: loose stool Magnesium Hydroxide (Milk Of Magnesia 30 Ml Oral.Susp) 30 ml PO DAILY PRN PRN Reason: Constipation Melatonin (Melatonin 3 Mg Tablet) 6 mg PO BEDTIME PRN PRN Reason: Insomnia Last Admin: 08/23/23 21:19 Dose: 6 mg Metformin HCl (Metformin Hcl Er 500 Mg Tab.Er.24h) 500 mg PO DAILY [facility] Last Admin: 08/24/23 08:00 Dose: 500 mg Metoprolol Tartrate (Metoprolol Tartrate 25 Mg Tablet) 25 mg PO DAILY [facility]; Protocol Last Admin: 08/24/23 08:00 Dose: 25 mg Nicotine Polacrilex (Nicotine Polacrilex 2 Mg Gum) 2 mg BUCCAL Q2H PRN PRN Reason: Nicotine Cravings Last Admin: 08/23/23 21:19 Dose: 2 mg Omeprazole (Omeprazole 40 Mg Capsule.Dr) 40 mg PO DAILY@0630 [facility] Last Admin: 08/24/23 06:04 Dose: 40 mg Pregabalin (Pregabalin 150 Mg Capsule) 150 mg PO BID [facility] Last Admin: 08/24/23 07:59 Dose: 150 mg Risperidone (Risperidone 1 Mg Tablet) 1 mg PO BID [facility] Last Admin: 08/24/23 08:00 Dose: 1 mg Sumatriptan Succinate (Sumatriptan Succinate 50 Mg Tablet) 50 mg PO DAILY PRN PRN Reason: Migraine Headache Thiamine HCl (Thiamine Hcl 100 Mg Tablet) 100 mg PO DAILY [facility] Last Admin: 08/24/23 07:59 Dose: 100 mg Tramadol HCl (Tramadol Hcl 50 Mg Tablet) 50 mg PO Q6H PRN PRN Reason: Pain, Moderate(Pain Scale 4-6) Last Admin: 08/21/23 21:15 Dose: 50 mg Trazodone HCl (Trazodone Hcl 50 Mg Tablet) 50 mg PO BEDTIME PRN PRN Reason: Insomnia Last Admin: 08/23/23 21:19 Dose: 50 mg Allergies Allergies Allergy/AdvReac Type Severity Reaction Status Date / Time bee pollen Allergy Anaphylaxis Verified 08/12/23 03:20 Assessment & Plan Assessment & Plan (1) Bipolar disorder with psychotic features: Status: Acute Code(s): F31.9 - Bipolar disorder, unspecified (2) Alcohol use disorder: Status: Acute Code(s): F10.90 - Alcohol use, unspecified, uncomplicated Plan The patient is a middle-aged [place] descent female with a past history of schizoaffective disorder bipolar type and dementia who was brought from the community after she was shoplifting at a [employer] store and eating raw arroyo, grossly disorganized unable to take care of herself. She was seen by crisis and transferring to this facility for psychiatric stabilization. Plan 08/20. continue tx. On discharge, will d/c lispro. continue lantus. started on metformin ER 500mg po daily. urine culture +gram neg roxana- start ceftin 500mg po BID x 7 days. 08/21 continue tx. Reason for continued inpatient stay Substantial Risk for: inability to function Time Spent With Patient Time: Total time managing care of this patient today ____ minutes.
[2023-08-24] MEDS: guaiFENesin 100 MG/5 ML LIQUID 10 ML PO (14:11)
[2023-08-24] MEDS: Nicotine Polacrilex 2 MG GUM BUCCAL (14:11)
[2023-08-24 16:17] LABS: Glucose, Whole Blood 200 mg/dL (60-115)
[2023-08-24 19:59] LABS: Glucose, Whole Blood 236 mg/dL (60-115)
[2023-08-24 20:00] VITALS: BP 118/60; PULSE 88; RESP 16; TEMP 36.3; O2SAT 97
[2023-08-24] MEDS: Atorvastatin Calcium 40 MG TABLET PO (21:05)
[2023-08-25] MEDS: Omeprazole 40 MG CAPSULE.DR PO (06:48)
[2023-08-25 07:00] LABS: Glucose, Whole Blood 216 mg/dL (60-115)
[2023-08-25] MEDS: Insulin Lispro 100 UNIT/ML 3 ML VIAL SUBCUT ×3 (08:02→20:32)
[2023-08-25] MEDS: Insulin Glargine,Hum.rec.anlog 100 UNIT/ML 10 ML VIAL 30 UNIT SUBCUT (08:02)
[2023-08-25 08:52] VITALS: BP 128/68; PULSE 98; RESP 18; TEMP 36.5; O2SAT 98
[2023-08-25] MEDS: Lidocaine 4 % Patch ADH..PATCH 1 PATCH TRANSDERMA ×2 (08:55)
[2023-08-25] MEDS: Folic Acid 1 MG TABLET PO (08:56)
[2023-08-25] MEDS: metFORMIN HCl ER 500 MG TAB.ER.24H PO (08:56)
[2023-08-25] MEDS: Pregabalin 150 MG CAPSULE PO ×2 (08:56→20:32)
[2023-08-25] MEDS: Aspirin 81 MG TAB.CHEW PO (08:56)
[2023-08-25] MEDS: clonazePAM 0.5 MG TABLET PO ×2 (08:56→20:32)
[2023-08-25] MEDS: Metoprolol Tartrate 25 MG TABLET PO (08:56)
[2023-08-25] MEDS: glipiZIDE 5 MG TABLET 2.5 MG PO (08:56)
[2023-08-25] MEDS: risperiDONE 1 MG TABLET PO ×2 (08:57→20:32)
[2023-08-25] MEDS: Acetaminophen 325 MG TABLET 650 MG PO ×3 (08:57→20:31)
[2023-08-25] MEDS: Cyanocobalamin (Vitamin B-12) 500 MCG TABLET PO (08:57)
[2023-08-25] MEDS: Thiamine HCL 100 MG TABLET PO (08:57)
[2023-08-25] MEDS: Nicotine Polacrilex 2 MG GUM BUCCAL ×2 (09:34→13:17)
[2023-08-25] MEDS: cefuroxime axetiL 500 MG TABLET PO ×2 (09:36→20:32)
[2023-08-25] MEDS: guaiFENesin 100 MG/5 ML LIQUID 10 ML PO (09:36)
--- NOTE | 2023-08-25 09:57 | P.PNPSI_ITS ---
Subjective Subjective Date of Service: 08/25/23 Reason For Visit: Psychosis Subjective Notes: Conditional Voluntary Interim History: Pt slept through the night. She denies any concerns in terms physical or emotional. No overt signs of psychosis or delusions. No SI/HI. No VH/AH. Pt is visible on the unit, social with select peers. No behavioral concerns. Review of Systems Review of Systems Yes all other systems are reviewed and are negative and Unobtainable due to mental condition Mental Status Exam Mental Status Exam Patient Appearance: Appropriate Patient Orientation: Person and Situation Level of Consciousness: Awake and Appropriate Patient Behavior: Guarded and Passive Mood Description: Withdrawn Affect Description: Constricted Patient Cognition Impaired: Yes Ability to Follow Directions: Good Speech Pattern: Clear Diagnostics Vital Signs (24Hr): Vital Signs - 24 hr 08/24/23 20:00 08/25/23 08:52 Temperature 97.4 F 97.7 F Pulse Rate 88 98 Respiratory Rate 16 18 Blood Pressure 118/60 128/68 Pulse Oximetry 97 98 Oxygen Delivery Method Room Air Room Air BMI result Body Mass Index 36.3 Labs 08/12/23 04:13 08/23/23 07:56 Labs: Laboratory Results - last 48 hr 08/23/23 08/23/23 08/23/23 11:33 16:14 20:28 POC Glucose 190 H 172 H 248 H 08/24/23 08/24/23 08/24/23 06:38 11:24 16:05 POC Glucose 271 H 200 H 200 H 08/24/23 08/25/23 19:50 06:48 POC Glucose 236 H 216 H Medications Medications Current Medications Acetaminophen (Acetaminophen 325 Mg Tablet) 650 mg PO TID [facility] Last Admin: 08/25/23 08:57 Dose: 650 mg Al Hydroxide/Mg Hydroxide (Magnesium Hydrox/Alum Hydrox 30 Ml Oral.Susp) 30 ml PO Q6H PRN PRN Reason: Heartburn/Nausea Albuterol Sulfate (Albuterol Sulfate 90 Mcg 8 Gm Inhaler) 1 puff INHALE RQID PRN PRN Reason: wheezing Aspirin (Aspirin 81 Mg Tab.Chew) 81 mg PO DAILY [facility] Last Admin: 08/25/23 08:56 Dose: 81 mg Atorvastatin Calcium (Atorvastatin Calcium 40 Mg Tablet) 40 mg PO BEDTIME [facility] Last Admin: 08/24/23 21:05 Dose: 40 mg Cefuroxime Axetil (Cefuroxime Axetil 500 Mg Tablet) 500 mg PO BID [facility] Stop: 08/28/23 09:01 Last Admin: 08/25/23 09:36 Dose: 500 mg Clonazepam (Clonazepam 0.5 Mg Tablet) 0.5 mg PO BID [facility] Last Admin: 08/25/23 08:56 Dose: 0.5 mg Cyanocobalamin (Cyanocobalamin (Vitamin B-12) 500 Mcg Tablet) 500 mcg PO DAILY [facility] Last Admin: 08/25/23 08:57 Dose: 500 mcg Folic Acid (Folic Acid 1 Mg Tablet) 1 mg PO DAILY [facility] Last Admin: 08/25/23 08:56 Dose: 1 mg Glipizide (Glipizide 5 Mg Tablet) 2.5 mg PO DAILY@0730 [facility] Last Admin: 08/25/23 08:56 Dose: 2.5 mg Guaifenesin (Guaifenesin 100 Mg/5 Ml Liquid) 10 ml PO Q4H PRN PRN Reason: Cough Last Admin: 08/25/23 09:36 Dose: 10 ml Hydroxyzine HCl (Hydroxyzine Hcl 25 Mg Tablet) 25 mg PO Q6H PRN PRN Reason: Anxiety Last Admin: 08/23/23 14:36 Dose: 25 mg Insulin Glargine (Insulin Glargine,Hum.Rec.Anlog 100 Unit/Ml 10 Ml Vial) 30 unit SUBCUT DAILY [facility] Last Admin: 08/25/23 08:02 Dose: 30 unit Insulin Human Lispro (Insulin Lispro 100 Unit/Ml 3 Ml Vial) 0 unit SUBCUT QIDACHS [facility]; Protocol Last Admin: 08/25/23 08:02 Dose: 4 unit Lidocaine (Lidocaine 4 % Patch Adh..Patch) 1 patch TRANSDERMA DAILY [facility]; Protocol Last Admin: 08/25/23 08:55 Dose: 1 patch Lidocaine (Lidocaine 4 % Patch Adh..Patch) 1 patch TRANSDERMA DAILY [facility]; Protocol Last Admin: 08/25/23 08:55 Dose: 1 patch Lisinopril (Lisinopril 10 Mg Tablet) 10 mg PO DAILY [facility]; Protocol Last Admin: 08/15/23 08:30 Dose: 10 mg Loperamide HCl (Loperamide Hcl 2 Mg Capsule) 2 mg PO Q6H PRN PRN Reason: loose stool Magnesium Hydroxide (Milk Of Magnesia 30 Ml Oral.Susp) 30 ml PO DAILY PRN PRN Reason: Constipation Melatonin (Melatonin 3 Mg Tablet) 6 mg PO BEDTIME PRN PRN Reason: Insomnia Last Admin: 08/23/23 21:19 Dose: 6 mg Metformin HCl (Metformin Hcl Er 500 Mg Tab.Er.24h) 500 mg PO DAILY [facility] Last Admin: 08/25/23 08:56 Dose: 500 mg Metoprolol Tartrate (Metoprolol Tartrate 25 Mg Tablet) 25 mg PO DAILY [facility]; Protocol Last Admin: 08/25/23 08:56 Dose: 25 mg Nicotine Polacrilex (Nicotine Polacrilex 2 Mg Gum) 2 mg BUCCAL Q2H PRN PRN Reason: Nicotine Cravings Last Admin: 08/25/23 09:34 Dose: 2 mg Omeprazole (Omeprazole 40 Mg Capsule.Dr) 40 mg PO DAILY@0630 [facility] Last Admin: 08/25/23 06:48 Dose: 40 mg Pregabalin (Pregabalin 150 Mg Capsule) 150 mg PO BID [facility] Last Admin: 08/25/23 08:56 Dose: 150 mg Risperidone (Risperidone 1 Mg Tablet) 1 mg PO BID [facility] Last Admin: 08/25/23 08:57 Dose: 1 mg Sumatriptan Succinate (Sumatriptan Succinate 50 Mg Tablet) 50 mg PO DAILY PRN PRN Reason: Migraine Headache Thiamine HCl (Thiamine Hcl 100 Mg Tablet) 100 mg PO DAILY [facility] Last Admin: 08/25/23 08:57 Dose: 100 mg Tramadol HCl (Tramadol Hcl 50 Mg Tablet) 50 mg PO Q6H PRN PRN Reason: Pain, Moderate(Pain Scale 4-6) Last Admin: 08/21/23 21:15 Dose: 50 mg Trazodone HCl (Trazodone Hcl 50 Mg Tablet) 50 mg PO BEDTIME PRN PRN Reason: Insomnia Last Admin: 08/23/23 21:19 Dose: 50 mg Allergies Allergies Allergy/AdvReac Type Severity Reaction Status Date / Time bee pollen Allergy Anaphylaxis Verified 08/12/23 03:20 Assessment & Plan Assessment & Plan (1) Bipolar disorder with psychotic features: Status: Acute Code(s): F31.9 - Bipolar disorder, unspecified (2) Alcohol use disorder: Status: Acute Code(s): F10.90 - Alcohol use, unspecified, uncomplicated Plan The patient is a middle-aged [place] descent female with a past history of schizoaffective disorder bipolar type and dementia who was brought from the community after she was shoplifting at a [employer] store and eating raw arroyo, grossly disorganized unable to take care of herself. She was seen by crisis and transferring to this facility for psychiatric stabilization. Plan 08/20. continue tx. On discharge, will d/c lispro. continue lantus. started on metformin ER 500mg po daily. urine culture +gram neg roxana- start ceftin 500mg po BID x 7 days. 08/21 continue tx. 08/22 continue tx. 08/24 continue tx. Reason for continued inpatient stay Substantial Risk for: inability to function Time Spent With Patient Time: Total time managing care of this patient today ____ minutes.
[2023-08-25 11:34] LABS: Glucose, Whole Blood 246 mg/dL (60-115)
[2023-08-25] MEDS: hydrOXYzine HCL 25 MG TABLET PO (14:38)
[2023-08-25 16:15] LABS: Glucose, Whole Blood 120 mg/dL (60-115)
[2023-08-25 20:00] VITALS: BP 101/56; PULSE 90; RESP 16; TEMP 36.5; O2SAT 96
[2023-08-25] MEDS: Atorvastatin Calcium 40 MG TABLET PO (20:31)
[2023-08-25 21:06] LABS: Glucose, Whole Blood 159 mg/dL (60-115)
[2023-08-26] MEDS: Omeprazole 40 MG CAPSULE.DR PO (06:07)
[2023-08-26 06:54] LABS: Glucose, Whole Blood 180 mg/dL (60-115)
[2023-08-26 08:07] VITALS: BP 141/75; PULSE 108; RESP 18; TEMP 36.2; O2SAT 97
[2023-08-26] MEDS: Insulin Lispro 100 UNIT/ML 3 ML VIAL SUBCUT ×3 (08:24→20:25)
[2023-08-26] MEDS: Lidocaine 4 % Patch ADH..PATCH 1 PATCH TRANSDERMA ×2 (08:24)
[2023-08-26] MEDS: Insulin Glargine,Hum.rec.anlog 100 UNIT/ML 10 ML VIAL 30 UNIT SUBCUT (08:25)
[2023-08-26] MEDS: glipiZIDE 5 MG TABLET 2.5 MG PO (08:28)
[2023-08-26] MEDS: Acetaminophen 325 MG TABLET 650 MG PO ×3 (08:30→20:24)
[2023-08-26] MEDS: Aspirin 81 MG TAB.CHEW PO (08:31)
[2023-08-26] MEDS: clonazePAM 0.5 MG TABLET PO ×2 (08:31→20:24)
[2023-08-26] MEDS: metFORMIN HCl ER 500 MG TAB.ER.24H PO (08:31)
[2023-08-26] MEDS: Pregabalin 150 MG CAPSULE PO ×2 (08:32→20:25)
[2023-08-26] MEDS: Metoprolol Tartrate 25 MG TABLET PO (08:32)
[2023-08-26] MEDS: Folic Acid 1 MG TABLET PO (08:32)
[2023-08-26] MEDS: cefuroxime axetiL 500 MG TABLET PO ×2 (08:32→20:24)
[2023-08-26] MEDS: Thiamine HCL 100 MG TABLET PO (08:33)
[2023-08-26] MEDS: Nicotine Polacrilex 2 MG GUM BUCCAL ×3 (08:33→15:02)
[2023-08-26] MEDS: risperiDONE 1 MG TABLET PO ×2 (08:33→20:25)
[2023-08-26] MEDS: Cyanocobalamin (Vitamin B-12) 500 MCG TABLET PO (08:33)
[2023-08-26] MEDS: guaiFENesin 100 MG/5 ML LIQUID 10 ML PO (08:36)
--- NOTE | 2023-08-26 11:15 | HO.PSYCHPN ---
Subjective Subjective Date of Service: 08/26/23 Reason For Visit: Psychosis Interim History: asking for TEDs, c/o B/L pedal edema. no other complaints or requests. per staff, no change in presentation. calm, pleasant, cooperative. FSBS 180. ceftin for UTI. sleeping. concerned about swelling in her legs. Mental Status Exam Mental Status Exam Patient Appearance: Appropriate Patient Orientation: Person and Situation Level of Consciousness: Awake and Appropriate Patient Behavior: Guarded and Passive Mood Description: Withdrawn Affect Description: Constricted Patient Cognition Impaired: Yes Ability to Follow Directions: Good Speech Pattern: Clear Diagnostics Vital Signs (24Hr): Vital Signs - 24 hr 08/25/23 20:00 08/26/23 08:07 Temperature 97.7 F 97.1 F Pulse Rate 90 108 H Respiratory Rate 16 18 Blood Pressure 101/56 L 141/75 H Pulse Oximetry 96 97 Oxygen Delivery Method Room Air Room Air BMI result Body Mass Index 36.3 Labs 08/12/23 04:13 08/23/23 07:56 Labs: Laboratory Results - last 48 hr 08/24/23 08/24/23 08/24/23 11:24 16:05 19:50 POC Glucose 200 H 200 H 236 H 08/25/23 08/25/23 08/25/23 06:48 11:30 16:10 POC Glucose 216 H 246 H 120 H 08/25/23 08/26/23 20:23 06:43 POC Glucose 159 H 180 H Medications Medications Current Medications Acetaminophen (Acetaminophen 325 Mg Tablet) 650 mg PO TID [facility] Last Admin: 08/26/23 08:30 Dose: 650 mg Al Hydroxide/Mg Hydroxide (Magnesium Hydrox/Alum Hydrox 30 Ml Oral.Susp) 30 ml PO Q6H PRN PRN Reason: Heartburn/Nausea Albuterol Sulfate (Albuterol Sulfate 90 Mcg 8 Gm Inhaler) 1 puff INHALE RQID PRN PRN Reason: wheezing Aspirin (Aspirin 81 Mg Tab.Chew) 81 mg PO DAILY [facility] Last Admin: 08/26/23 08:31 Dose: 81 mg Atorvastatin Calcium (Atorvastatin Calcium 40 Mg Tablet) 40 mg PO BEDTIME [facility] Last Admin: 08/25/23 20:31 Dose: 40 mg Cefuroxime Axetil (Cefuroxime Axetil 500 Mg Tablet) 500 mg PO BID [facility] Stop: 08/28/23 09:01 Last Admin: 08/26/23 08:32 Dose: 500 mg Clonazepam (Clonazepam 0.5 Mg Tablet) 0.5 mg PO BID [facility] Cyanocobalamin (Cyanocobalamin (Vitamin B-12) 500 Mcg Tablet) 500 mcg PO DAILY [facility] Last Admin: 08/26/23 08:33 Dose: 500 mcg Folic Acid (Folic Acid 1 Mg Tablet) 1 mg PO DAILY [facility] Last Admin: 08/26/23 08:32 Dose: 1 mg Glipizide (Glipizide 5 Mg Tablet) 2.5 mg PO DAILY@0730 [facility] Last Admin: 08/26/23 08:28 Dose: 2.5 mg Guaifenesin (Guaifenesin 100 Mg/5 Ml Liquid) 10 ml PO Q4H PRN PRN Reason: Cough Last Admin: 08/26/23 08:36 Dose: 10 ml Hydroxyzine HCl (Hydroxyzine Hcl 25 Mg Tablet) 25 mg PO Q6H PRN PRN Reason: Anxiety Last Admin: 08/25/23 14:38 Dose: 25 mg Insulin Glargine (Insulin Glargine,Hum.Rec.Anlog 100 Unit/Ml 10 Ml Vial) 30 unit SUBCUT DAILY [facility] Last Admin: 08/26/23 08:25 Dose: 30 unit Insulin Human Lispro (Insulin Lispro 100 Unit/Ml 3 Ml Vial) 0 unit SUBCUT QIDACHS [facility]; Protocol Last Admin: 08/26/23 08:24 Dose: 2 unit Lidocaine (Lidocaine 4 % Patch Adh..Patch) 1 patch TRANSDERMA DAILY [facility]; Protocol Last Admin: 08/26/23 08:24 Dose: 1 patch Lidocaine (Lidocaine 4 % Patch Adh..Patch) 1 patch TRANSDERMA DAILY [facility]; Protocol Last Admin: 08/26/23 08:24 Dose: 1 patch Lisinopril (Lisinopril 10 Mg Tablet) 10 mg PO DAILY [facility]; Protocol Last Admin: 08/15/23 08:30 Dose: 10 mg Loperamide HCl (Loperamide Hcl 2 Mg Capsule) 2 mg PO Q6H PRN PRN Reason: loose stool Magnesium Hydroxide (Milk Of Magnesia 30 Ml Oral.Susp) 30 ml PO DAILY PRN PRN Reason: Constipation Melatonin (Melatonin 3 Mg Tablet) 6 mg PO BEDTIME PRN PRN Reason: Insomnia Last Admin: 08/23/23 21:19 Dose: 6 mg Metformin HCl (Metformin Hcl Er 500 Mg Tab.Er.24h) 500 mg PO DAILY [facility] Last Admin: 08/26/23 08:31 Dose: 500 mg Metoprolol Tartrate (Metoprolol Tartrate 25 Mg Tablet) 25 mg PO DAILY [facility]; Protocol Last Admin: 08/26/23 08:32 Dose: 25 mg Nicotine Polacrilex (Nicotine Polacrilex 2 Mg Gum) 2 mg BUCCAL Q2H PRN PRN Reason: Nicotine Cravings Last Admin: 08/26/23 08:33 Dose: 2 mg Omeprazole (Omeprazole 40 Mg Capsule.Dr) 40 mg PO DAILY@30 [facility] Last Admin: 08/26/23 06:07 Dose: 40 mg Pregabalin (Pregabalin 150 Mg Capsule) 150 mg PO BID [facility] Last Admin: 08/26/23 08:32 Dose: 150 mg Risperidone (Risperidone 1 Mg Tablet) 1 mg PO BID [facility] Last Admin: 08/26/23 08:33 Dose: 1 mg Sumatriptan Succinate (Sumatriptan Succinate 50 Mg Tablet) 50 mg PO DAILY PRN PRN Reason: Migraine Headache Thiamine HCl (Thiamine Hcl 100 Mg Tablet) 100 mg PO DAILY [facility] Last Admin: 08/26/23 08:33 Dose: 100 mg Tramadol HCl (Tramadol Hcl 50 Mg Tablet) 50 mg PO Q6H PRN PRN Reason: Pain, Moderate(Pain Scale 4-6) Last Admin: 08/21/23 21:15 Dose: 50 mg Trazodone HCl (Trazodone Hcl 50 Mg Tablet) 50 mg PO BEDTIME PRN PRN Reason: Insomnia Last Admin: 08/23/23 21:19 Dose: 50 mg Allergies Allergies Allergy/AdvReac Type Severity Reaction Status Date / Time bee pollen Allergy Anaphylaxis Verified 08/12/23 03:20 Assessment & Plan Assessment & Plan (1) Bipolar disorder with psychotic features: Status: Acute Code(s): F31.9 - Bipolar disorder, unspecified (2) Alcohol use disorder: Status: Acute Code(s): F10.90 - Alcohol use, unspecified, uncomplicated Plan The patient is a middle-aged [place] descent female with a past history of schizoaffective disorder bipolar type and dementia who was brought from the community after she was shoplifting at a [employer] and eating raw arroyo, grossly disorganized unable to take care of herself. She was seen by crisis and transferring to this facility for psychiatric stabilization. Plan 08/20. continue tx. On discharge, will d/c lispro. continue lantus. started on metformin ER 500mg po daily. urine culture +gram neg roxana- start ceftin 500mg po BID x 7 days. 08/21 continue tx. 08/22 continue tx. 08/24 continue tx. 08/25: stable. continue current mgmt. Reason for continued inpatient stay Substantial Risk for: inability to function Time Spent With Patient Time: Total time managing care of this patient today ____ minutes.
[2023-08-26 11:33] LABS: Glucose, Whole Blood 212 mg/dL (60-115)
[2023-08-26 16:13] LABS: Glucose, Whole Blood 141 mg/dL (60-115)
[2023-08-26 20:00] VITALS: BP 152/59; PULSE 91; RESP 16; TEMP 36.9; O2SAT 92
[2023-08-26 20:02] LABS: Glucose, Whole Blood 225 mg/dL (60-115)
[2023-08-26] MEDS: Atorvastatin Calcium 40 MG TABLET PO (20:24)
[2023-08-27] MEDS: Omeprazole 40 MG CAPSULE.DR PO (05:46)
[2023-08-27 06:43] LABS: Glucose, Whole Blood 228 mg/dL (60-115)
[2023-08-27 08:00] VITALS: BP 136/80; PULSE 99; RESP 18; TEMP 36.2; O2SAT 98
[2023-08-27] MEDS: Insulin Lispro 100 UNIT/ML 3 ML VIAL SUBCUT ×4 (08:31→20:25)
[2023-08-27] MEDS: Insulin Glargine,Hum.rec.anlog 100 UNIT/ML 10 ML VIAL 30 UNIT SUBCUT (08:32)
[2023-08-27] MEDS: glipiZIDE 5 MG TABLET 2.5 MG PO (08:33)
[2023-08-27] MEDS: Metoprolol Tartrate 25 MG TABLET PO (08:35)
[2023-08-27] MEDS: Acetaminophen 325 MG TABLET 650 MG PO ×3 (08:35→20:24)
[2023-08-27] MEDS: metFORMIN HCl ER 500 MG TAB.ER.24H PO (08:35)
[2023-08-27] MEDS: Aspirin 81 MG TAB.CHEW PO (08:35)
[2023-08-27] MEDS: Pregabalin 150 MG CAPSULE PO ×2 (08:35→20:26)
[2023-08-27] MEDS: Thiamine HCL 100 MG TABLET PO (08:36)
[2023-08-27] MEDS: Lidocaine 4 % Patch ADH..PATCH 1 PATCH TRANSDERMA ×2 (08:36→08:37)
[2023-08-27] MEDS: Cyanocobalamin (Vitamin B-12) 500 MCG TABLET PO (08:36)
[2023-08-27] MEDS: clonazePAM 0.5 MG TABLET PO ×2 (08:36→20:25)
[2023-08-27] MEDS: risperiDONE 1 MG TABLET PO ×2 (08:36→20:26)
[2023-08-27] MEDS: Folic Acid 1 MG TABLET PO (08:36)
[2023-08-27] MEDS: cefuroxime axetiL 500 MG TABLET PO ×2 (08:39→20:25)
[2023-08-27] MEDS: Nicotine Polacrilex 2 MG GUM BUCCAL ×4 (08:47→20:59)
[2023-08-27 11:34] LABS: Glucose, Whole Blood 161 mg/dL (60-115)
--- NOTE | 2023-08-27 11:45 | P.PNPSI_ITS ---
Subjective Subjective Date of Service: 08/27/23 Reason For Visit: Psychosis Interim History: calm, cooperative, pleasant. asks for ativan, says hydroxyzine inadequate for her anxiety. MD redirects pt to discuss with attending tomorrow. no other complaints or requests. per staff, no change in presentation. taking meds. asking for PRNs. wearing TEDs. FSBS 228. social, attending groups. Mental Status Exam Mental Status Exam Patient Appearance: Appropriate Patient Orientation: Person and Situation Level of Consciousness: Awake and Appropriate Patient Behavior: Guarded and Passive Mood Description: Withdrawn Affect Description: Calm, Appropriate and Relaxed Patient Cognition Impaired: Yes Ability to Follow Directions: Good Speech Pattern: Clear Diagnostics Vital Signs (24Hr): Vital Signs - 24 hr 08/26/23 20:00 08/27/23 08:00 Temperature 98.4 F 97.1 F Pulse Rate 91 99 Respiratory Rate 16 18 Blood Pressure 152/59 H 136/80 Pulse Oximetry 92 98 Oxygen Delivery Method Room Air Room Air BMI result Body Mass Index 36.3 Labs 08/12/23 04:13 08/23/23 07:56 Labs: Laboratory Results - last 48 hr 08/25/23 08/25/23 08/26/23 16:10 20:23 06:43 POC Glucose 120 H 159 H 180 H 08/26/23 08/26/23 08/26/23 11:29 16:08 19:56 POC Glucose 212 H 141 H 225 H 08/27/23 08/27/23 06:18 11:30 POC Glucose 228 H 161 H Medications Medications Current Medications Acetaminophen (Acetaminophen 325 Mg Tablet) 650 mg PO TID [facility] Last Admin: 08/27/23 08:35 Dose: 650 mg Al Hydroxide/Mg Hydroxide (Magnesium Hydrox/Alum Hydrox 30 Ml Oral.Susp) 30 ml PO Q6H PRN PRN Reason: Heartburn/Nausea Albuterol Sulfate (Albuterol Sulfate 90 Mcg 8 Gm Inhaler) 1 puff INHALE RQID PRN PRN Reason: wheezing Aspirin (Aspirin 81 Mg Tab.Chew) 81 mg PO DAILY [facility] Last Admin: 08/27/23 08:35 Dose: 81 mg Atorvastatin Calcium (Atorvastatin Calcium 40 Mg Tablet) 40 mg PO BEDTIME [facility] Last Admin: 08/26/23 20:24 Dose: 40 mg Cefuroxime Axetil (Cefuroxime Axetil 500 Mg Tablet) 500 mg PO BID [facility] Stop: 08/28/23 09:01 Last Admin: 08/27/23 08:39 Dose: 500 mg Clonazepam (Clonazepam 0.5 Mg Tablet) 0.5 mg PO BID [facility] Last Admin: 08/27/23 08:36 Dose: 0.5 mg Cyanocobalamin (Cyanocobalamin (Vitamin B-12) 500 Mcg Tablet) 500 mcg PO DAILY [facility] Last Admin: 08/27/23 08:36 Dose: 500 mcg Folic Acid (Folic Acid 1 Mg Tablet) 1 mg PO DAILY [facility] Last Admin: 08/27/23 08:36 Dose: 1 mg Glipizide (Glipizide 5 Mg Tablet) 2.5 mg PO DAILY@30 [facility] Last Admin: 08/27/23 08:33 Dose: 2.5 mg Guaifenesin (Guaifenesin 100 Mg/5 Ml Liquid) 10 ml PO Q4H PRN PRN Reason: Cough Last Admin: 08/26/23 08:36 Dose: 10 ml Hydroxyzine HCl (Hydroxyzine Hcl 25 Mg Tablet) 25 mg PO Q6H PRN PRN Reason: Anxiety Last Admin: 08/25/23 14:38 Dose: 25 mg Insulin Glargine (Insulin Glargine,Hum.Rec.Anlog 100 Unit/Ml 10 Ml Vial) 30 unit SUBCUT DAILY [facility] Last Admin: 08/27/23 08:32 Dose: 30 unit Insulin Human Lispro (Insulin Lispro 100 Unit/Ml 3 Ml Vial) 0 unit SUBCUT QIDACHS [facility]; Protocol Last Admin: 08/27/23 11:36 Dose: 2 unit Lidocaine (Lidocaine 4 % Patch Adh..Patch) 1 patch TRANSDERMA DAILY [facility]; Protocol Last Admin: 08/27/23 08:36 Dose: 1 patch Lidocaine (Lidocaine 4 % Patch Adh..Patch) 1 patch TRANSDERMA DAILY [facility]; Protocol Last Admin: 08/27/23 08:37 Dose: 1 patch Lisinopril (Lisinopril 10 Mg Tablet) 10 mg PO DAILY [facility]; Protocol Last Admin: 08/15/23 08:30 Dose: 10 mg Loperamide HCl (Loperamide Hcl 2 Mg Capsule) 2 mg PO Q6H PRN PRN Reason: loose stool Magnesium Hydroxide (Milk Of Magnesia 30 Ml Oral.Susp) 30 ml PO DAILY PRN PRN Reason: Constipation Melatonin (Melatonin 3 Mg Tablet) 6 mg PO BEDTIME PRN PRN Reason: Insomnia Last Admin: 08/23/23 21:19 Dose: 6 mg Metformin HCl (Metformin Hcl Er 500 Mg Tab.Er.24h) 500 mg PO DAILY [facility] Last Admin: 08/27/23 08:35 Dose: 500 mg Metoprolol Tartrate (Metoprolol Tartrate 25 Mg Tablet) 25 mg PO DAILY [facility]; Protocol Last Admin: 08/27/23 08:35 Dose: 25 mg Nicotine Polacrilex (Nicotine Polacrilex 2 Mg Gum) 2 mg BUCCAL Q2H PRN PRN Reason: Nicotine Cravings Last Admin: 08/27/23 11:36 Dose: 2 mg Omeprazole (Omeprazole 40 Mg Capsule.Dr) 40 mg PO DAILY@0630 [facility] Last Admin: 08/27/23 05:46 Dose: 40 mg Pregabalin (Pregabalin 150 Mg Capsule) 150 mg PO BID [facility] Last Admin: 08/27/23 08:35 Dose: 150 mg Risperidone (Risperidone 1 Mg Tablet) 1 mg PO BID [facility] Last Admin: 08/27/23 08:36 Dose: 1 mg Sumatriptan Succinate (Sumatriptan Succinate 50 Mg Tablet) 50 mg PO DAILY PRN PRN Reason: Migraine Headache Thiamine HCl (Thiamine Hcl 100 Mg Tablet) 100 mg PO DAILY [facility] Last Admin: 08/27/23 08:36 Dose: 100 mg Tramadol HCl (Tramadol Hcl 50 Mg Tablet) 50 mg PO Q6H PRN PRN Reason: Pain, Moderate(Pain Scale 4-6) Last Admin: 08/21/23 21:15 Dose: 50 mg Trazodone HCl (Trazodone Hcl 50 Mg Tablet) 50 mg PO BEDTIME PRN PRN Reason: Insomnia Last Admin: 08/23/23 21:19 Dose: 50 mg Allergies Allergies Allergy/AdvReac Type Severity Reaction Status Date / Time bee pollen Allergy Anaphylaxis Verified 08/12/23 03:20 Assessment & Plan Assessment & Plan (1) Bipolar disorder with psychotic features: Status: Acute Code(s): F31.9 - Bipolar disorder, unspecified (2) Alcohol use disorder: Status: Acute Code(s): F10.90 - Alcohol use, unspecified, uncomplicated Plan The patient is a middle-aged [place] descent female with a past history of schizoaffective disorder bipolar type and dementia who was brought from the community after she was shoplifting at a [employer] and eating raw arroyo, grossly disorganized unable to take care of herself. She was seen by crisis and transferring to this facility for psychiatric stabilization. Plan 08/20. continue tx. On discharge, will d/c lispro. continue lantus. started on metformin ER 500mg po daily. urine culture +gram neg roxana- start ceftin 500mg po BID x 7 days. 08/21 continue tx. 08/22 continue tx. 08/24 continue tx. 08/25: stable. continue current mgmt. 08/26: asking for ativan, says hydroxyzine inadequate. deferred to primary team. otherwise stable, continue current mgmt. wearing TEDs with improvement in B/L LE edema. Reason for continued inpatient stay Substantial Risk for: inability to function Time Spent With Patient Time: Total time managing care of this patient today ____ minutes.
[2023-08-27] MEDS: hydrOXYzine HCL 25 MG TABLET PO ×2 (14:14→20:59)
[2023-08-27 16:15] LABS: Glucose, Whole Blood 181 mg/dL (60-115)
[2023-08-27 20:00] VITALS: BP 112/59; PULSE 96; RESP 17; TEMP 36.3; O2SAT 97
[2023-08-27 20:02] LABS: Glucose, Whole Blood 218 mg/dL (60-115)
[2023-08-27] MEDS: Atorvastatin Calcium 40 MG TABLET PO (20:25)
[2023-08-27] MEDS: Melatonin 3 MG TABLET 6 MG PO (20:59)
[2023-08-27] MEDS: traZODone HCL 50 MG TABLET PO (20:59)
[2023-08-28] MEDS: Omeprazole 40 MG CAPSULE.DR PO (05:38)
[2023-08-28 06:40] LABS: Glucose, Whole Blood 189 mg/dL (60-115)
[2023-08-28 08:00] VITALS: BP 116/69; PULSE 106; RESP 16; TEMP 36.3; O2SAT 95
[2023-08-28] MEDS: Insulin Glargine,Hum.rec.anlog 100 UNIT/ML 10 ML VIAL 30 UNIT SUBCUT (08:43)
[2023-08-28] MEDS: Insulin Lispro 100 UNIT/ML 3 ML VIAL SUBCUT ×3 (08:44→20:52)
[2023-08-28] MEDS: Cyanocobalamin (Vitamin B-12) 500 MCG TABLET PO (08:45)
[2023-08-28] MEDS: cefuroxime axetiL 500 MG TABLET PO (08:45)
[2023-08-28] MEDS: risperiDONE 1 MG TABLET PO ×2 (08:45→20:28)
[2023-08-28] MEDS: Thiamine HCL 100 MG TABLET PO (08:45)
[2023-08-28] MEDS: Acetaminophen 325 MG TABLET 650 MG PO ×3 (08:45→20:27)
[2023-08-28] MEDS: Nicotine Polacrilex 2 MG GUM BUCCAL ×2 (08:45→15:54)
[2023-08-28] MEDS: Metoprolol Tartrate 25 MG TABLET PO (08:45)
[2023-08-28] MEDS: Pregabalin 150 MG CAPSULE PO ×2 (08:45→20:28)
[2023-08-28] MEDS: Folic Acid 1 MG TABLET PO (08:46)
[2023-08-28] MEDS: metFORMIN HCl ER 500 MG TAB.ER.24H PO (08:46)
[2023-08-28] MEDS: Aspirin 81 MG TAB.CHEW PO (08:46)
[2023-08-28] MEDS: clonazePAM 0.5 MG TABLET PO ×2 (08:46→20:28)
[2023-08-28] MEDS: glipiZIDE 5 MG TABLET 2.5 MG PO (08:46)
[2023-08-28] MEDS: Lidocaine 4 % Patch ADH..PATCH 1 PATCH TRANSDERMA (08:49)
[2023-08-28 11:30] LABS: Glucose, Whole Blood 165 mg/dL (60-115)
--- NOTE | 2023-08-28 11:54 | HO.PSYCHPN ---
Subjective Subjective Date of Service: 08/28/23 Reason For Visit: Psychosis Subjective Notes: Conditional Voluntary Interim History: Pt slept through the night. No behavioral concerns. She reports difficulties with roommate who is suspicious and at times approaches pt. No SI/HI. Looking forward to be discharged. No behavioral concerns. Review of Systems Review of Systems Yes all other systems are reviewed and are negative and Unobtainable due to mental condition Mental Status Exam Mental Status Exam Patient Appearance: Appropriate Patient Orientation: Person and Situation Level of Consciousness: Awake and Appropriate Patient Behavior: Guarded and Passive Mood Description: Withdrawn Affect Description: Calm, Appropriate and Relaxed Patient Cognition Impaired: Yes Ability to Follow Directions: Good Speech Pattern: Clear Diagnostics Vital Signs (24Hr): Vital Signs - 24 hr 08/27/23 20:00 08/28/23 08:00 Temperature 97.4 F 97.4 F Pulse Rate 96 106 H Respiratory Rate 17 16 Blood Pressure 112/59 L 116/69 Pulse Oximetry 97 95 Oxygen Delivery Method Room Air Room Air BMI result Body Mass Index 36.3 Labs 08/12/23 04:13 08/23/23 07:56 Labs: Laboratory Results - last 48 hr 08/26/23 08/26/23 08/27/23 16:08 19:56 06:18 POC Glucose 141 H 225 H 228 H 08/27/23 08/27/23 08/27/23 11:30 16:11 19:56 POC Glucose 161 H 181 H 218 H 08/28/23 08/28/23 06:27 11:23 POC Glucose 189 H 165 H Medications Medications Current Medications Acetaminophen (Acetaminophen 325 Mg Tablet) 650 mg PO TID [facility] Last Admin: 08/28/23 08:45 Dose: 650 mg Al Hydroxide/Mg Hydroxide (Magnesium Hydrox/Alum Hydrox 30 Ml Oral.Susp) 30 ml PO Q6H PRN PRN Reason: Heartburn/Nausea Albuterol Sulfate (Albuterol Sulfate 90 Mcg 8 Gm Inhaler) 1 puff INHALE RQID PRN PRN Reason: wheezing Aspirin (Aspirin 81 Mg Tab.Chew) 81 mg PO DAILY [facility] Last Admin: 08/28/23 08:46 Dose: 81 mg Atorvastatin Calcium (Atorvastatin Calcium 40 Mg Tablet) 40 mg PO BEDTIME [facility] Last Admin: 08/27/23 20:25 Dose: 40 mg Clonazepam (Clonazepam 0.5 Mg Tablet) 0.5 mg PO BID [facility] Last Admin: 08/28/23 08:46 Dose: 0.5 mg Cyanocobalamin (Cyanocobalamin (Vitamin B-12) 500 Mcg Tablet) 500 mcg PO DAILY [facility] Last Admin: 08/28/23 08:45 Dose: 500 mcg Folic Acid (Folic Acid 1 Mg Tablet) 1 mg PO DAILY [facility] Last Admin: 08/28/23 08:46 Dose: 1 mg Glipizide (Glipizide 5 Mg Tablet) 2.5 mg PO DAILY@0730 [facility] Last Admin: 08/28/23 08:46 Dose: 2.5 mg Guaifenesin (Guaifenesin 100 Mg/5 Ml Liquid) 10 ml PO Q4H PRN PRN Reason: Cough Last Admin: 08/26/23 08:36 Dose: 10 ml Hydroxyzine HCl (Hydroxyzine Hcl 25 Mg Tablet) 25 mg PO Q6H PRN PRN Reason: Anxiety Last Admin: 08/27/23 20:59 Dose: 25 mg Insulin Glargine (Insulin Glargine,Hum.Rec.Anlog 100 Unit/Ml 10 Ml Vial) 30 unit SUBCUT DAILY [facility] Last Admin: 08/28/23 08:43 Dose: 30 unit Insulin Human Lispro (Insulin Lispro 100 Unit/Ml 3 Ml Vial) 0 unit SUBCUT QIDACHS [facility]; Protocol Last Admin: 08/28/23 08:44 Dose: 2 unit Lidocaine (Lidocaine 4 % Patch Adh..Patch) 1 patch TRANSDERMA DAILY [facility]; Protocol Last Admin: 08/28/23 08:49 Dose: 1 patch Lidocaine (Lidocaine 4 % Patch Adh..Patch) 1 patch TRANSDERMA DAILY [facility]; Protocol Last Admin: 08/28/23 08:47 Dose: Not Given Lisinopril (Lisinopril 10 Mg Tablet) 10 mg PO DAILY [facility]; Protocol Last Admin: 08/15/23 08:30 Dose: 10 mg Loperamide HCl (Loperamide Hcl 2 Mg Capsule) 2 mg PO Q6H PRN PRN Reason: loose stool Magnesium Hydroxide (Milk Of Magnesia 30 Ml Oral.Susp) 30 ml PO DAILY PRN PRN Reason: Constipation Melatonin (Melatonin 3 Mg Tablet) 6 mg PO BEDTIME PRN PRN Reason: Insomnia Last Admin: 08/27/23 20:59 Dose: 6 mg Metformin HCl (Metformin Hcl Er 500 Mg Tab.Er.24h) 500 mg PO DAILY [facility] Last Admin: 08/28/23 08:46 Dose: 500 mg Metoprolol Tartrate (Metoprolol Tartrate 25 Mg Tablet) 25 mg PO DAILY [facility]; Protocol Last Admin: 08/28/23 08:45 Dose: 25 mg Nicotine Polacrilex (Nicotine Polacrilex 2 Mg Gum) 2 mg BUCCAL Q2H PRN PRN Reason: Nicotine Cravings Last Admin: 08/28/23 08:45 Dose: 2 mg Omeprazole (Omeprazole 40 Mg Capsule.Dr) 40 mg PO DAILY@0630 [facility] Last Admin: 08/28/23 05:38 Dose: 40 mg Pregabalin (Pregabalin 150 Mg Capsule) 150 mg PO BID [facility] Last Admin: 08/28/23 08:45 Dose: 150 mg Risperidone (Risperidone 1 Mg Tablet) 1 mg PO BID [facility] Last Admin: 08/28/23 08:45 Dose: 1 mg Sumatriptan Succinate (Sumatriptan Succinate 50 Mg Tablet) 50 mg PO DAILY PRN PRN Reason: Migraine Headache Thiamine HCl (Thiamine Hcl 100 Mg Tablet) 100 mg PO DAILY [facility] Last Admin: 08/28/23 08:45 Dose: 100 mg Tramadol HCl (Tramadol Hcl 50 Mg Tablet) 50 mg PO Q6H PRN PRN Reason: Pain, Moderate(Pain Scale 4-6) Last Admin: 08/21/23 21:15 Dose: 50 mg Trazodone HCl (Trazodone Hcl 50 Mg Tablet) 50 mg PO BEDTIME PRN PRN Reason: Insomnia Last Admin: 08/27/23 20:59 Dose: 50 mg Allergies Allergies Allergy/AdvReac Type Severity Reaction Status Date / Time bee pollen Allergy Anaphylaxis Verified 08/12/23 03:20 Assessment & Plan Assessment & Plan (1) Bipolar disorder with psychotic features: Status: Acute Code(s): F31.9 - Bipolar disorder, unspecified (2) Alcohol use disorder: Status: Acute Code(s): F10.90 - Alcohol use, unspecified, uncomplicated Plan The patient is a middle-aged [place] descent female with a past history of schizoaffective disorder bipolar type and dementia who was brought from the community after she was shoplifting at a [employer] and eating raw arroyo, grossly disorganized unable to take care of herself. She was seen by crisis and transferring to this facility for psychiatric stabilization. Plan 08/20. continue tx. On discharge, will d/c lispro. continue lantus. started on metformin ER 500mg po daily. urine culture +gram neg roxana- start ceftin 500mg po BID x 7 days. 08/21 continue tx. 08/22 continue tx. 08/24 continue tx. 08/25: stable. continue current mgmt. 08/26: asking for ativan, says hydroxyzine inadequate. deferred to primary team. otherwise stable, continue current mgmt. wearing TEDs with improvement in B/L LE edema. 08/27 continue tx. clonazepam during admission but will NOT be rx on discharged. Reason for continued inpatient stay Substantial Risk for: stable for discharge Time Spent With Patient Time: Total time managing care of this patient today ____ minutes.
[2023-08-28 16:04] LABS: Glucose, Whole Blood 107 mg/dL (60-115)
[2023-08-28 20:00] VITALS: BP 109/66; PULSE 90; RESP 17; TEMP 36.5; O2SAT 96
[2023-08-28 20:20] LABS: Glucose, Whole Blood 152 mg/dL (60-115)
[2023-08-28] MEDS: Atorvastatin Calcium 40 MG TABLET PO (20:28)
[2023-08-29] MEDS: Omeprazole 40 MG CAPSULE.DR PO (05:50)
[2023-08-29 06:48] LABS: Glucose, Whole Blood 179 mg/dL (60-115)
[2023-08-29 07:52] VITALS: BP 143/77; PULSE 98; RESP 16; TEMP 36.4; O2SAT 97
[2023-08-29] MEDS: Insulin Lispro 100 UNIT/ML 3 ML VIAL SUBCUT ×3 (08:17→20:18)
[2023-08-29] MEDS: Cyanocobalamin (Vitamin B-12) 500 MCG TABLET PO (08:18)
[2023-08-29] MEDS: Acetaminophen 325 MG TABLET 650 MG PO ×3 (08:18→20:18)
[2023-08-29] MEDS: Insulin Glargine,Hum.rec.anlog 100 UNIT/ML 10 ML VIAL 30 UNIT SUBCUT (08:18)
[2023-08-29] MEDS: Pregabalin 150 MG CAPSULE PO ×2 (08:18→20:20)
[2023-08-29] MEDS: metFORMIN HCl ER 500 MG TAB.ER.24H PO (08:18)
[2023-08-29] MEDS: Aspirin 81 MG TAB.CHEW PO (08:19)
[2023-08-29] MEDS: clonazePAM 0.5 MG TABLET PO ×2 (08:19→15:21)
[2023-08-29] MEDS: Thiamine HCL 100 MG TABLET PO (08:19)
[2023-08-29] MEDS: glipiZIDE 5 MG TABLET 2.5 MG PO (08:19)
[2023-08-29] MEDS: risperiDONE 1 MG TABLET PO ×2 (08:19→20:20)
[2023-08-29] MEDS: Folic Acid 1 MG TABLET PO (08:19)
[2023-08-29] MEDS: Lidocaine 4 % Patch ADH..PATCH 1 PATCH TRANSDERMA (08:20)
[2023-08-29 11:18] LABS: Glucose, Whole Blood 175 mg/dL (60-115)
[2023-08-29 11:31] VITALS: BP 107/63; PULSE 106
[2023-08-29] MEDS: Metoprolol Tartrate 25 MG TABLET PO (11:32)
[2023-08-29] MEDS: Nicotine Polacrilex 2 MG GUM BUCCAL (12:14)
--- NOTE | 2023-08-29 16:32 | P.PNPSI_ITS ---
Subjective Subjective Date of Service: 08/29/23 Reason For Visit: Psychosis Interim History: feeling well. would like to change klonopin from BID to [id number]. otherwise no complaints. wearing TEDs. per staff, no issues. likely monday DC. Mental Status Exam Mental Status Exam Patient Appearance: Appropriate Patient Orientation: Person and Situation Level of Consciousness: Awake and Appropriate Patient Behavior: Guarded and Passive Mood Description: Withdrawn Affect Description: Calm, Appropriate and Relaxed Patient Cognition Impaired: Yes Ability to Follow Directions: Good Speech Pattern: Clear Diagnostics Vital Signs (24Hr): Vital Signs - 24 hr 08/28/23 20:00 08/29/23 07:52 08/29/23 11:31 Temperature 97.7 F 97.6 F Pulse Rate 90 98 106 H Respiratory Rate 17 16 Blood Pressure 109/66 143/77 H 107/63 Pulse Oximetry 96 97 Oxygen Delivery Method Room Air Room Air BMI result Body Mass Index 36.3 Labs 08/12/23 04:13 08/23/23 07:56 Labs: Laboratory Results - last 48 hr 08/27/23 08/28/23 08/28/23 19:56 06:27 11:23 POC Glucose 218 H 189 H 165 H 08/28/23 08/28/23 08/29/23 15:56 20:02 06:29 POC Glucose 107 152 H 179 H 08/29/23 11:14 POC Glucose 175 H Medications Medications Current Medications Acetaminophen (Acetaminophen 325 Mg Tablet) 650 mg PO TID [facility] Last Admin: 08/29/23 15:20 Dose: 650 mg Al Hydroxide/Mg Hydroxide (Magnesium Hydrox/Alum Hydrox 30 Ml Oral.Susp) 30 ml PO Q6H PRN PRN Reason: Heartburn/Nausea Albuterol Sulfate (Albuterol Sulfate 90 Mcg 8 Gm Inhaler) 1 puff INHALE RQID PRN PRN Reason: wheezing Aspirin (Aspirin 81 Mg Tab.Chew) 81 mg PO DAILY [facility] Last Admin: 08/29/23 08:19 Dose: 81 mg Atorvastatin Calcium (Atorvastatin Calcium 40 Mg Tablet) 40 mg PO BEDTIME [facility] Last Admin: 08/28/23 20:28 Dose: 40 mg Clonazepam (Clonazepam 0.5 Mg Tablet) 0.5 mg PO BID@0900,1400 [facility] Last Admin: 08/29/23 15:21 Dose: 0.5 mg Cyanocobalamin (Cyanocobalamin (Vitamin B-12) 500 Mcg Tablet) 500 mcg PO DAILY [facility] Last Admin: 08/29/23 08:18 Dose: 500 mcg Folic Acid (Folic Acid 1 Mg Tablet) 1 mg PO DAILY [facility] Last Admin: 08/29/23 08:19 Dose: 1 mg Glipizide (Glipizide 5 Mg Tablet) 2.5 mg PO DAILY@0730 [facility] Last Admin: 08/29/23 08:19 Dose: 2.5 mg Guaifenesin (Guaifenesin 100 Mg/5 Ml Liquid) 10 ml PO Q4H PRN PRN Reason: Cough Last Admin: 08/26/23 08:36 Dose: 10 ml Hydroxyzine HCl (Hydroxyzine Hcl 25 Mg Tablet) 25 mg PO Q6H PRN PRN Reason: Anxiety Last Admin: 08/27/23 20:59 Dose: 25 mg Insulin Glargine (Insulin Glargine,Hum.Rec.Anlog 100 Unit/Ml 10 Ml Vial) 30 unit SUBCUT DAILY [facility] Last Admin: 08/29/23 08:18 Dose: 30 unit Insulin Human Lispro (Insulin Lispro 100 Unit/Ml 3 Ml Vial) 0 unit SUBCUT QIDACHS [facility]; Protocol Last Admin: 08/29/23 11:33 Dose: 2 unit Lidocaine (Lidocaine 4 % Patch Adh..Patch) 1 patch TRANSDERMA DAILY [facility]; Protocol Last Admin: 08/29/23 08:20 Dose: 1 patch Lidocaine (Lidocaine 4 % Patch Adh..Patch) 1 patch TRANSDERMA DAILY [facility]; Protocol Last Admin: 08/29/23 08:24 Dose: Not Given Lisinopril (Lisinopril 10 Mg Tablet) 10 mg PO DAILY [facility]; Protocol Last Admin: 08/15/23 08:30 Dose: 10 mg Loperamide HCl (Loperamide Hcl 2 Mg Capsule) 2 mg PO Q6H PRN PRN Reason: loose stool Magnesium Hydroxide (Milk Of Magnesia 30 Ml Oral.Susp) 30 ml PO DAILY PRN PRN Reason: Constipation Melatonin (Melatonin 3 Mg Tablet) 6 mg PO BEDTIME PRN PRN Reason: Insomnia Last Admin: 08/27/23 20:59 Dose: 6 mg Metformin HCl (Metformin Hcl Er 500 Mg Tab.Er.24h) 500 mg PO DAILY [facility] Last Admin: 08/29/23 08:18 Dose: 500 mg Metoprolol Tartrate (Metoprolol Tartrate 25 Mg Tablet) 25 mg PO DAILY [facility]; Protocol Last Admin: 08/29/23 11:32 Dose: 25 mg Nicotine Polacrilex (Nicotine Polacrilex 2 Mg Gum) 2 mg BUCCAL Q2H PRN PRN Reason: Nicotine Cravings Last Admin: 08/29/23 12:14 Dose: 2 mg Omeprazole (Omeprazole 40 Mg Capsule.Dr) 40 mg PO DAILY@0630 [facility] Last Admin: 08/29/23 05:50 Dose: 40 mg Pregabalin (Pregabalin 150 Mg Capsule) 150 mg PO BID [facility] Last Admin: 08/29/23 08:18 Dose: 150 mg Risperidone (Risperidone 1 Mg Tablet) 1 mg PO BID [facility] Last Admin: 08/29/23 08:19 Dose: 1 mg Sumatriptan Succinate (Sumatriptan Succinate 50 Mg Tablet) 50 mg PO DAILY PRN PRN Reason: Migraine Headache Thiamine HCl (Thiamine Hcl 100 Mg Tablet) 100 mg PO DAILY [facility] Last Admin: 08/29/23 08:19 Dose: 100 mg Tramadol HCl (Tramadol Hcl 50 Mg Tablet) 50 mg PO Q6H PRN PRN Reason: Pain, Moderate(Pain Scale 4-6) Last Admin: 08/21/23 21:15 Dose: 50 mg Trazodone HCl (Trazodone Hcl 50 Mg Tablet) 50 mg PO BEDTIME PRN PRN Reason: Insomnia Last Admin: 08/27/23 20:59 Dose: 50 mg Allergies Allergies Allergy/AdvReac Type Severity Reaction Status Date / Time bee pollen Allergy Anaphylaxis Verified 08/12/23 03:20 Assessment & Plan Assessment & Plan (1) Bipolar disorder with psychotic features: Status: Acute Code(s): F31.9 - Bipolar disorder, unspecified (2) Alcohol use disorder: Status: Acute Code(s): F10.90 - Alcohol use, unspecified, uncomplicated Plan The patient is a middle-aged [place] descent female with a past history of schizoaffective disorder bipolar type and dementia who was brought from the community after she was shoplifting at a [employer] store and eating raw arroyo, grossly disorganized unable to take care of herself. She was seen by crisis and transferring to this facility for psychiatric stabilization. Plan 08/20. continue tx. On discharge, will d/c lispro. continue lantus. started on metformin ER 500mg po daily. urine culture +gram neg roxana- start ceftin 500mg po BID x 7 days. 08/21 continue tx. 08/22 continue tx. 08/24 continue tx. 08/25: stable. continue current mgmt. 08/26: asking for ativan, says hydroxyzine inadequate. deferred to primary team. otherwise stable, continue current mgmt. wearing TEDs with improvement in B/L LE edema. 08/27 continue tx. clonazepam during admission but will NOT be rx on discharged. 08/28: klonopin changed to [id number] per pt request. continue current mgmt. planning for discharge monday. Reason for continued inpatient stay Substantial Risk for: inability to function Time Spent With Patient Time: Total time managing care of this patient today ____ minutes.
[2023-08-29 16:36] LABS: Glucose, Whole Blood 143 mg/dL (60-115)
[2023-08-29 20:00] VITALS: BP 100/57; PULSE 86; RESP 16; TEMP 36.4; O2SAT 95
[2023-08-29 20:11] LABS: Glucose, Whole Blood 175 mg/dL (60-115)
[2023-08-29] MEDS: traZODone HCL 50 MG TABLET PO (20:19)
[2023-08-29] MEDS: Atorvastatin Calcium 40 MG TABLET PO (20:19)
[2023-08-30] MEDS: Omeprazole 40 MG CAPSULE.DR PO (06:29)
[2023-08-30 06:52] LABS: Glucose, Whole Blood 173 mg/dL (60-115)
[2023-08-30 08:00] VITALS: BP 119/70; PULSE 106; RESP 18; TEMP 36.8; O2SAT 100
[2023-08-30] MEDS: Insulin Lispro 100 UNIT/ML 3 ML VIAL SUBCUT ×3 (08:07→16:26)
[2023-08-30] MEDS: Cyanocobalamin (Vitamin B-12) 500 MCG TABLET PO (08:08)
[2023-08-30] MEDS: risperiDONE 1 MG TABLET PO ×2 (08:08→20:38)
[2023-08-30] MEDS: Aspirin 81 MG TAB.CHEW PO (08:08)
[2023-08-30] MEDS: Pregabalin 150 MG CAPSULE PO ×2 (08:08→20:38)
[2023-08-30] MEDS: Folic Acid 1 MG TABLET PO (08:08)
[2023-08-30] MEDS: Thiamine HCL 100 MG TABLET PO (08:08)
[2023-08-30] MEDS: Insulin Glargine,Hum.rec.anlog 100 UNIT/ML 10 ML VIAL 30 UNIT SUBCUT (08:08)
[2023-08-30] MEDS: Metoprolol Tartrate 25 MG TABLET PO (08:08)
[2023-08-30] MEDS: Acetaminophen 325 MG TABLET 650 MG PO ×2 (08:09→14:50)
[2023-08-30] MEDS: metFORMIN HCl ER 500 MG TAB.ER.24H PO (08:11)
[2023-08-30] MEDS: glipiZIDE 5 MG TABLET 2.5 MG PO (08:12)
[2023-08-30] MEDS: clonazePAM 0.5 MG TABLET PO ×2 (08:14→13:58)
[2023-08-30] MEDS: Lidocaine 4 % Patch ADH..PATCH 1 PATCH TRANSDERMA ×2 (08:14→08:19)
[2023-08-30 08:49] LABS: Creatinine Clr Calc Pharmacy 79.8; Estimated Glomerular Filt Rate > 60
[2023-08-30] MEDS: Nicotine Polacrilex 2 MG GUM BUCCAL ×2 (09:49→15:10)
[2023-08-30] MEDS: guaiFENesin 100 MG/5 ML LIQUID 10 ML PO (09:49)
[2023-08-30 11:12] LABS: Glucose, Whole Blood 195 mg/dL (60-115)
--- NOTE | 2023-08-30 15:45 | P.PNPSI_ITS ---
Subjective Subjective Date of Service: 08/30/23 Reason For Visit: Psychosis Interim History: calm, cooperative. asking for tylenol to be increased. informed klonopin will be tapered prior to discharge. no complaints or requests. per staff, no changes in presentation. Mental Status Exam Mental Status Exam Patient Appearance: Appropriate Patient Orientation: Person and Situation Level of Consciousness: Awake and Appropriate Patient Behavior: Guarded and Passive Mood Description: Withdrawn Affect Description: Calm, Appropriate and Relaxed Patient Cognition Impaired: Yes Ability to Follow Directions: Good Speech Pattern: Clear Diagnostics Vital Signs (24Hr): Vital Signs - 24 hr 08/29/23 20:00 08/30/23 08:00 Temperature 97.6 F 98.2 F Pulse Rate 86 106 H Respiratory Rate 16 18 Blood Pressure 100/57 L 119/70 Pulse Oximetry 95 100 Oxygen Delivery Method Room Air Room Air BMI result Body Mass Index 36.3 Labs 08/12/23 04:13 08/30/23 08:21 Labs: Laboratory Results - last 48 hr 08/28/23 08/28/23 08/29/23 15:56 20:02 06:29 Hold Purple Top Creatinine Estim Creat Clear Calc Estimated GFR POC Glucose 107 152 H 179 H 08/29/23 08/29/23 08/29/23 11:14 16:32 20:00 Hold Purple Top Creatinine Estim Creat Clear Calc Estimated GFR POC Glucose 175 H 143 H 175 H 08/30/23 08/30/23 08/30/23 06:30 08:21 11:08 Hold Purple Top SEE NOTE Creatinine 0.74 Estim Creat Clear Calc 79.8 Estimated GFR > 60 POC Glucose 173 H 195 H Medications Medications Current Medications Al Hydroxide/Mg Hydroxide (Magnesium Hydrox/Alum Hydrox 30 Ml Oral.Susp) 30 ml PO Q6H PRN PRN Reason: Heartburn/Nausea Albuterol Sulfate (Albuterol Sulfate 90 Mcg 8 Gm Inhaler) 1 puff INHALE RQID PRN PRN Reason: wheezing Aspirin (Aspirin 81 Mg Tab.Chew) 81 mg PO DAILY [facility] Last Admin: 08/30/23 08:08 Dose: 81 mg Atorvastatin Calcium (Atorvastatin Calcium 40 Mg Tablet) 40 mg PO BEDTIME [facility] Last Admin: 08/29/23 20:19 Dose: 40 mg Clonazepam (Clonazepam 0.5 Mg Tablet) 0.25 mg PO BID@0900,1400 [facility] Cyanocobalamin (Cyanocobalamin (Vitamin B-12) 500 Mcg Tablet) 500 mcg PO DAILY [facility] Last Admin: 08/30/23 08:08 Dose: 500 mcg Folic Acid (Folic Acid 1 Mg Tablet) 1 mg PO DAILY [facility] Last Admin: 08/30/23 08:08 Dose: 1 mg Glipizide (Glipizide 5 Mg Tablet) 2.5 mg PO DAILY@0730 [facility] Last Admin: 08/30/23 08:12 Dose: 2.5 mg Guaifenesin (Guaifenesin 100 Mg/5 Ml Liquid) 10 ml PO Q4H PRN PRN Reason: Cough Last Admin: 08/30/23 09:49 Dose: 10 ml Hydroxyzine HCl (Hydroxyzine Hcl 25 Mg Tablet) 25 mg PO Q6H PRN PRN Reason: Anxiety Last Admin: 08/27/23 20:59 Dose: 25 mg Insulin Glargine (Insulin Glargine,Hum.Rec.Anlog 100 Unit/Ml 10 Ml Vial) 30 unit SUBCUT DAILY [facility] Last Admin: 08/30/23 08:08 Dose: 30 unit Insulin Human Lispro (Insulin Lispro 100 Unit/Ml 3 Ml Vial) 0 unit SUBCUT QIDACHS [facility]; Protocol Last Admin: 08/30/23 11:33 Dose: 2 unit Lidocaine (Lidocaine 4 % Patch Adh..Patch) 1 patch TRANSDERMA DAILY [facility]; Protocol Last Admin: 08/30/23 08:19 Dose: 1 patch Lidocaine (Lidocaine 4 % Patch Adh..Patch) 1 patch TRANSDERMA DAILY [facility]; Protocol Last Admin: 08/30/23 08:14 Dose: 1 patch Lisinopril (Lisinopril 10 Mg Tablet) 10 mg PO DAILY [facility]; Protocol Last Admin: 08/15/23 08:30 Dose: 10 mg Loperamide HCl (Loperamide Hcl 2 Mg Capsule) 2 mg PO Q6H PRN PRN Reason: loose stool Magnesium Hydroxide (Milk Of Magnesia 30 Ml Oral.Susp) 30 ml PO DAILY PRN PRN Reason: Constipation Melatonin (Melatonin 3 Mg Tablet) 6 mg PO BEDTIME PRN PRN Reason: Insomnia Last Admin: 08/27/23 20:59 Dose: 6 mg Metformin HCl (Metformin Hcl Er 500 Mg Tab.Er.24h) 500 mg PO DAILY [facility] Last Admin: 08/30/23 08:11 Dose: 500 mg Metformin HCl (Metformin Hcl 500 Mg Tablet) 250 mg PO DAILY@1700 [facility] Metoprolol Tartrate (Metoprolol Tartrate 25 Mg Tablet) 25 mg PO DAILY [facility]; Protocol Last Admin: 08/30/23 08:08 Dose: 25 mg Nicotine Polacrilex (Nicotine Polacrilex 2 Mg Gum) 2 mg BUCCAL Q2H PRN PRN Reason: Nicotine Cravings Last Admin: 08/30/23 15:10 Dose: 2 mg Omeprazole (Omeprazole 40 Mg Capsule.Dr) 40 mg PO DAILY@0630 [facility] Last Admin: 08/30/23 06:29 Dose: 40 mg Pregabalin (Pregabalin 150 Mg Capsule) 150 mg PO BID [facility] Last Admin: 08/30/23 08:08 Dose: 150 mg Risperidone (Risperidone 1 Mg Tablet) 1 mg PO BID [facility] Last Admin: 08/30/23 08:08 Dose: 1 mg Sumatriptan Succinate (Sumatriptan Succinate 50 Mg Tablet) 50 mg PO DAILY PRN PRN Reason: Migraine Headache Thiamine HCl (Thiamine Hcl 100 Mg Tablet) 100 mg PO DAILY [facility] Last Admin: 08/30/23 08:08 Dose: 100 mg Tramadol HCl (Tramadol Hcl 50 Mg Tablet) 50 mg PO Q6H PRN PRN Reason: Pain, Moderate(Pain Scale 4-6) Last Admin: 08/21/23 21:15 Dose: 50 mg Trazodone HCl (Trazodone Hcl 50 Mg Tablet) 50 mg PO BEDTIME PRN PRN Reason: Insomnia Last Admin: 08/29/23 20:19 Dose: 50 mg Allergies Allergies Allergy/AdvReac Type Severity Reaction Status Date / Time bee pollen Allergy Anaphylaxis Verified 08/12/23 03:20 Assessment & Plan Assessment & Plan (1) Bipolar disorder with psychotic features: Status: Acute Code(s): F31.9 - Bipolar disorder, unspecified (2) Alcohol use disorder: Status: Acute Code(s): F10.90 - Alcohol use, unspecified, uncomplicated Plan The patient is a middle-aged [place] descent female with a past history of schizoaffective disorder bipolar type and dementia who was brought from the community after she was shoplifting at a [employer] and eating raw arroyo, grossly disorganized unable to take care of herself. She was seen by crisis and transferring to this facility for psychiatric stabilization. Plan 08/20. continue tx. On discharge, will d/c lispro. continue lantus. started on metformin ER 500mg po daily. urine culture +gram neg roxana- start ceftin 500mg po BID x 7 days. 08/21 continue tx. 08/22 continue tx. 08/24 continue tx. 08/25: stable. continue current mgmt. 08/26: asking for ativan, says hydroxyzine inadequate. deferred to primary team. otherwise stable, continue current mgmt. wearing TEDs with improvement in B/L LE edema. 08/27 continue tx. clonazepam during admission but will NOT be rx on discharged. 08/28: klonopin changed to [id number] per pt request. continue current mgmt. planning for discharge monday. 08/29: discharge confirmed for next monday. taper klonopin to 0.25 mg BID from 0.5 mg BID in preparation. also will need to DC SSI versus cut it down to BID at discharge. FSBS in the 150-200 range, generally. Reason for continued inpatient stay Substantial Risk for: inability to function and rapid decompensation Time Spent With Patient Time: Total time managing care of this patient today _25___ minutes.
[2023-08-30 16:13] LABS: Glucose, Whole Blood 163 mg/dL (60-115)
[2023-08-30] MEDS: metFORMIN HCl 500 MG TABLET 250 MG PO (16:26)
[2023-08-30 20:00] VITALS: BP 119/64; PULSE 83; RESP 18; TEMP 36.1; O2SAT 96
[2023-08-30 20:06] LABS: Glucose, Whole Blood 110 mg/dL (60-115)
[2023-08-30] MEDS: hydrOXYzine HCL 25 MG TABLET PO (20:38)
[2023-08-30] MEDS: Melatonin 3 MG TABLET 6 MG PO (20:38)
[2023-08-30] MEDS: traZODone HCL 50 MG TABLET PO (20:38)
[2023-08-30] MEDS: Atorvastatin Calcium 40 MG TABLET PO (20:38)
[2023-08-30] MEDS: Acetaminophen 325 MG TABLET 975 MG PO (20:38)
[2023-08-31] MEDS: Omeprazole 40 MG CAPSULE.DR PO (05:43)
[2023-08-31 06:43] LABS: Glucose, Whole Blood 150 mg/dL (60-115)
[2023-08-31 07:00] VITALS: BMI 33.6
[2023-08-31 08:00] VITALS: BP 105/53; PULSE 90; RESP 16; TEMP 36.3; O2SAT 94
[2023-08-31] MEDS: Insulin Glargine,Hum.rec.anlog 100 UNIT/ML 10 ML VIAL 30 UNIT SUBCUT (08:38)
[2023-08-31] MEDS: Lidocaine 4 % Patch ADH..PATCH 1 PATCH TRANSDERMA ×2 (08:39→08:40)
[2023-08-31] MEDS: Acetaminophen 325 MG TABLET 975 MG PO ×3 (08:42→20:44)
[2023-08-31] MEDS: metFORMIN HCl ER 500 MG TAB.ER.24H PO (08:44)
[2023-08-31] MEDS: clonazePAM 0.5 MG TABLET 0.25 MG PO ×2 (08:44→14:29)
[2023-08-31] MEDS: glipiZIDE 5 MG TABLET 2.5 MG PO (08:45)
[2023-08-31] MEDS: Folic Acid 1 MG TABLET PO (08:45)
[2023-08-31] MEDS: Thiamine HCL 100 MG TABLET PO (08:46)
[2023-08-31] MEDS: Pregabalin 150 MG CAPSULE PO ×2 (08:46→20:44)
[2023-08-31] MEDS: Aspirin 81 MG TAB.CHEW PO (08:46)
[2023-08-31] MEDS: Metoprolol Tartrate 25 MG TABLET PO (08:46)
[2023-08-31] MEDS: risperiDONE 1 MG TABLET PO ×2 (08:47→20:44)
[2023-08-31] MEDS: Cyanocobalamin (Vitamin B-12) 500 MCG TABLET PO (08:47)
[2023-08-31] MEDS: Nicotine Polacrilex 2 MG GUM BUCCAL ×3 (09:03→16:20)
[2023-08-31 11:30] LABS: Glucose, Whole Blood 130 mg/dL (60-115)
[2023-08-31 16:06] LABS: Glucose, Whole Blood 146 mg/dL (60-115)
[2023-08-31] MEDS: metFORMIN HCl 500 MG TABLET 250 MG PO (16:18)
--- NOTE | 2023-08-31 18:42 | P.PNPSI_ITS ---
Subjective Subjective Date of Service: 08/31/23 Reason For Visit: Psychosis Interim History: Declines to meet. Well engaged on the phone in a discussion. Spontaneous smile, team reports no outbursts and probable discharge for 09/03. Denies current issues or concerns. Medication Compliance: Yes Side effects from medications: No Attending Groups: Intermittent Review of Systems Acute medical concerns: No Medical Review of Systems: unchanged Review of Systems Review of Systems Yes all other systems are reviewed and are negative (denies) Mental Status Exam Mental Status Exam Patient Appearance: Appropriate Patient Orientation: Person and Situation Level of Consciousness: Awake and Appropriate Patient Behavior: Guarded and Passive Mood Description: Withdrawn Affect Description: Calm, Appropriate and Relaxed Patient Cognition Impaired: Yes Ability to Follow Directions: Good Speech Pattern: Clear Diagnostics Vital Signs (24Hr): Vital Signs - 24 hr 08/30/23 20:00 08/31/23 08:00 Temperature 97.0 F 97.3 F Pulse Rate 83 90 Respiratory Rate 18 16 Blood Pressure 119/64 105/53 L Pulse Oximetry 96 94 Oxygen Delivery Method Room Air Room Air BMI result Body Mass Index 33.6 Labs 08/12/23 04:13 08/30/23 08:21 Labs: Laboratory Results - last 48 hr 08/29/23 08/30/23 08/30/23 20:00 06:30 08:21 Hold Purple Top SEE NOTE Creatinine 0.74 Estim Creat Clear Calc 79.8 Estimated GFR > 60 POC Glucose 175 H 173 H 08/30/23 08/30/23 08/30/23 11:08 16:08 20:00 Hold Purple Top Creatinine Estim Creat Clear Calc Estimated GFR POC Glucose 195 H 163 H 110 08/31/23 08/31/23 08/31/23 06:36 11:26 16:02 Hold Purple Top Creatinine Estim Creat Clear Calc Estimated GFR POC Glucose 150 H 130 H 146 H Medications Medications Current Medications Acetaminophen (Acetaminophen 325 Mg Tablet) 975 mg PO TID [facility] Last Admin: 08/31/23 14:29 Dose: 975 mg Al Hydroxide/Mg Hydroxide (Magnesium Hydrox/Alum Hydrox 30 Ml Oral.Susp) 30 ml PO Q6H PRN PRN Reason: Heartburn/Nausea Albuterol Sulfate (Albuterol Sulfate 90 Mcg 8 Gm Inhaler) 1 puff INHALE RQID PRN PRN Reason: wheezing Aspirin (Aspirin 81 Mg Tab.Chew) 81 mg PO DAILY [facility] Last Admin: 08/31/23 08:46 Dose: 81 mg Atorvastatin Calcium (Atorvastatin Calcium 40 Mg Tablet) 40 mg PO BEDTIME [facility] Last Admin: 08/30/23 20:38 Dose: 40 mg Clonazepam (Clonazepam 0.5 Mg Tablet) 0.25 mg PO BID@0900,1400 [facility] Last Admin: 08/31/23 14:29 Dose: 0.25 mg Cyanocobalamin (Cyanocobalamin (Vitamin B-12) 500 Mcg Tablet) 500 mcg PO DAILY [facility] Last Admin: 08/31/23 08:47 Dose: 500 mcg Folic Acid (Folic Acid 1 Mg Tablet) 1 mg PO DAILY [facility] Last Admin: 08/31/23 08:45 Dose: 1 mg Glipizide (Glipizide 5 Mg Tablet) 2.5 mg PO DAILY@0730 [facility] Last Admin: 08/31/23 08:45 Dose: 2.5 mg Guaifenesin (Guaifenesin 100 Mg/5 Ml Liquid) 10 ml PO Q4H PRN PRN Reason: Cough Last Admin: 08/30/23 09:49 Dose: 10 ml Hydroxyzine HCl (Hydroxyzine Hcl 25 Mg Tablet) 25 mg PO Q6H PRN PRN Reason: Anxiety Last Admin: 08/30/23 20:38 Dose: 25 mg Insulin Glargine (Insulin Glargine,Hum.Rec.Anlog 100 Unit/Ml 10 Ml Vial) 30 unit SUBCUT DAILY [facility] Last Admin: 08/31/23 08:38 Dose: 30 unit Insulin Human Lispro (Insulin Lispro 100 Unit/Ml 3 Ml Vial) 0 unit SUBCUT QIDACHS [facility]; Protocol Last Admin: 08/31/23 16:17 Dose: Not Given Lidocaine (Lidocaine 4 % Patch Adh..Patch) 1 patch TRANSDERMA DAILY [facility]; Protocol Last Admin: 08/31/23 08:39 Dose: 1 patch Lidocaine (Lidocaine 4 % Patch Adh..Patch) 1 patch TRANSDERMA DAILY [facility]; Protocol Last Admin: 08/31/23 08:40 Dose: 1 patch Lisinopril (Lisinopril 10 Mg Tablet) 10 mg PO DAILY [facility]; Protocol Last Admin: 08/15/23 08:30 Dose: 10 mg Loperamide HCl (Loperamide Hcl 2 Mg Capsule) 2 mg PO Q6H PRN PRN Reason: loose stool Magnesium Hydroxide (Milk Of Magnesia 30 Ml Oral.Susp) 30 ml PO DAILY PRN PRN Reason: Constipation Melatonin (Melatonin 3 Mg Tablet) 6 mg PO BEDTIME PRN PRN Reason: Insomnia Last Admin: 08/30/23 20:38 Dose: 6 mg Metformin HCl (Metformin Hcl Er 500 Mg Tab.Er.24h) 500 mg PO DAILY [facility] Last Admin: 08/31/23 08:44 Dose: 500 mg Metformin HCl (Metformin Hcl 500 Mg Tablet) 250 mg PO DAILY@1700 [facility] Last Admin: 08/31/23 16:18 Dose: 250 mg Metoprolol Tartrate (Metoprolol Tartrate 25 Mg Tablet) 25 mg PO DAILY [facility]; Protocol Last Admin: 08/31/23 08:46 Dose: 25 mg Nicotine Polacrilex (Nicotine Polacrilex 2 Mg Gum) 2 mg BUCCAL Q2H PRN PRN Reason: Nicotine Cravings Last Admin: 08/31/23 16:20 Dose: 2 mg Omeprazole (Omeprazole 40 Mg Capsule.Dr) 40 mg PO DAILY@0630 [facility] Last Admin: 08/31/23 05:43 Dose: 40 mg Pregabalin (Pregabalin 150 Mg Capsule) 150 mg PO BID [facility] Last Admin: 08/31/23 08:46 Dose: 150 mg Risperidone (Risperidone 1 Mg Tablet) 1 mg PO BID [facility] Last Admin: 08/31/23 08:47 Dose: 1 mg Sumatriptan Succinate (Sumatriptan Succinate 50 Mg Tablet) 50 mg PO DAILY PRN PRN Reason: Migraine Headache Thiamine HCl (Thiamine Hcl 100 Mg Tablet) 100 mg PO DAILY [facility] Last Admin: 08/31/23 08:46 Dose: 100 mg Tramadol HCl (Tramadol Hcl 50 Mg Tablet) 50 mg PO Q6H PRN PRN Reason: Pain, Moderate(Pain Scale 4-6) Last Admin: 08/21/23 21:15 Dose: 50 mg Trazodone HCl (Trazodone Hcl 50 Mg Tablet) 50 mg PO BEDTIME PRN PRN Reason: Insomnia Last Admin: 08/30/23 20:38 Dose: 50 mg Allergies Allergies Allergy/AdvReac Type Severity Reaction Status Date / Time bee pollen Allergy Anaphylaxis Verified 08/12/23 03:20 Assessment & Plan Assessment & Plan (1) Bipolar disorder with psychotic features: Status: Acute Code(s): F31.9 - Bipolar disorder, unspecified (2) Alcohol use disorder: Status: Acute Code(s): F10.90 - Alcohol use, unspecified, uncomplicated Plan The patient is a middle-aged [place] descent female with a past history of schizoaffective disorder bipolar type and dementia who was brought from the community after she was shoplifting at a [employer] and eating raw arroyo, grossly disorganized unable to take care of herself. She was seen by crisis and transferring to this facility for psychiatric stabilization. Plan 08/20. continue tx. On discharge, will d/c lispro. continue lantus. started on metformin ER 500mg po daily. urine culture +gram neg roxana- start ceftin 500mg po BID x 7 days. 08/21 continue tx. 08/22 continue tx. 08/24 continue tx. 08/25: stable. continue current mgmt. 08/26: asking for ativan, says hydroxyzine inadequate. deferred to primary team. otherwise stable, continue current mgmt. wearing TEDs with improvement in B/L LE edema. 08/27 continue tx. clonazepam during admission but will NOT be rx on discharged. 08/28: klonopin changed to [id number] per pt request. continue current mgmt. planning for discharge monday. 08/29: discharge confirmed for next monday. taper klonopin to 0.25 mg BID from 0.5 mg BID in preparation. also will need to DC SSI versus cut it down to BID at discharge. FSBS in the 150-200 range, generally. 08/30: Continue tx. Reason for continued inpatient stay Substantial Risk for: rapid decompensation Time Spent With Patient Time: Total time managing care of this patient today ____ minutes.
[2023-08-31 20:00] VITALS: BP 111/64; PULSE 85; RESP 18; TEMP 35.8; O2SAT 95
[2023-08-31 20:03] LABS: Glucose, Whole Blood 180 mg/dL (60-115)
[2023-08-31] MEDS: traZODone HCL 50 MG TABLET PO (20:44)
[2023-08-31] MEDS: Atorvastatin Calcium 40 MG TABLET PO (20:44)
[2023-08-31] MEDS: Melatonin 3 MG TABLET 6 MG PO (20:44)
[2023-08-31] MEDS: Insulin Lispro 100 UNIT/ML 3 ML VIAL SUBCUT (20:45)
[2023-09-01] MEDS: Omeprazole 40 MG CAPSULE.DR PO (06:11)
[2023-09-01 06:19] LABS: Glucose, Whole Blood 154 mg/dL (60-115)
[2023-09-01 08:40] VITALS: BP 112/69; PULSE 91; RESP 15; TEMP 36.7; O2SAT 97
[2023-09-01] MEDS: Lidocaine 4 % Patch ADH..PATCH 1 PATCH TRANSDERMA ×2 (08:40→08:41)
[2023-09-01] MEDS: Insulin Lispro 100 UNIT/ML 3 ML VIAL SUBCUT ×2 (08:41→20:35)
[2023-09-01] MEDS: Insulin Glargine,Hum.rec.anlog 100 UNIT/ML 10 ML VIAL 30 UNIT SUBCUT (08:41)
[2023-09-01] MEDS: clonazePAM 0.5 MG TABLET 0.25 MG PO ×2 (08:42→14:38)
[2023-09-01] MEDS: Folic Acid 1 MG TABLET PO (08:42)
[2023-09-01] MEDS: Metoprolol Tartrate 25 MG TABLET PO (08:42)
[2023-09-01] MEDS: risperiDONE 1 MG TABLET PO ×2 (08:42→20:33)
[2023-09-01] MEDS: Cyanocobalamin (Vitamin B-12) 500 MCG TABLET PO (08:42)
[2023-09-01] MEDS: Aspirin 81 MG TAB.CHEW PO (08:43)
[2023-09-01] MEDS: glipiZIDE 5 MG TABLET 2.5 MG PO (08:43)
[2023-09-01] MEDS: metFORMIN HCl ER 500 MG TAB.ER.24H PO (08:43)
[2023-09-01] MEDS: Thiamine HCL 100 MG TABLET PO (08:43)
[2023-09-01] MEDS: Pregabalin 150 MG CAPSULE PO (08:43)
[2023-09-01] MEDS: Acetaminophen 325 MG TABLET 975 MG PO ×3 (08:44→20:34)
[2023-09-01] MEDS: Nicotine Polacrilex 2 MG GUM BUCCAL ×3 (09:02→17:18)
[2023-09-01 11:40] LABS: Glucose, Whole Blood 112 mg/dL (60-115)
[2023-09-01 16:39] LABS: Glucose, Whole Blood 119 mg/dL (60-115)
--- NOTE | 2023-09-01 16:57 | P.PNPSI_ITS ---
Subjective Subjective Date of Service: 09/01/23 Reason For Visit: Psychosis Interim History: calm, cooperative. resting in bed. c/o neuropathic leg pain. agreeable to increase lyrica. planning for monday discharge. per staff, FSBS good. depressed, in bed. bored. Mental Status Exam Mental Status Exam Patient Appearance: Appropriate Patient Orientation: Person and Situation Level of Consciousness: Awake and Appropriate Patient Behavior: Guarded and Passive Mood Description: Withdrawn Affect Description: Calm, Appropriate and Relaxed Patient Cognition Impaired: Yes Ability to Follow Directions: Good Speech Pattern: Clear Diagnostics Vital Signs (24Hr): Vital Signs - 24 hr 08/31/23 20:00 09/01/23 08:40 Temperature 96.4 F L 98.1 F Pulse Rate 85 91 Respiratory Rate 18 15 Blood Pressure 111/64 112/69 Pulse Oximetry 95 97 Oxygen Delivery Method Room Air Room Air BMI result Body Mass Index 33.6 Labs 08/12/23 04:13 08/30/23 08:21 Labs: Laboratory Results - last 48 hr 08/30/23 08/31/23 08/31/23 20:00 06:36 11:26 POC Glucose 110 150 H 130 H 08/31/23 08/31/23 09/01/23 16:02 19:47 06:03 POC Glucose 146 H 180 H 154 H 09/01/23 09/01/23 11:36 16:36 POC Glucose 112 119 H Medications Medications Current Medications Acetaminophen (Acetaminophen 325 Mg Tablet) 975 mg PO TID [facility] Last Admin: 09/01/23 14:38 Dose: 975 mg Al Hydroxide/Mg Hydroxide (Magnesium Hydrox/Alum Hydrox 30 Ml Oral.Susp) 30 ml PO Q6H PRN PRN Reason: Heartburn/Nausea Albuterol Sulfate (Albuterol Sulfate 90 Mcg 8 Gm Inhaler) 1 puff INHALE RQID PRN PRN Reason: wheezing Aspirin (Aspirin 81 Mg Tab.Chew) 81 mg PO DAILY [facility] Last Admin: 09/01/23 08:43 Dose: 81 mg Atorvastatin Calcium (Atorvastatin Calcium 40 Mg Tablet) 40 mg PO BEDTIME [facility] Last Admin: 08/31/23 20:44 Dose: 40 mg Clonazepam (Clonazepam 0.5 Mg Tablet) 0.25 mg PO BID@0900,1400 [facility] Last Admin: 09/01/23 14:38 Dose: 0.25 mg Cyanocobalamin (Cyanocobalamin (Vitamin B-12) 500 Mcg Tablet) 500 mcg PO DAILY [facility] Last Admin: 09/01/23 08:42 Dose: 500 mcg Folic Acid (Folic Acid 1 Mg Tablet) 1 mg PO DAILY [facility] Last Admin: 09/01/23 08:42 Dose: 1 mg Glipizide (Glipizide 5 Mg Tablet) 2.5 mg PO DAILY@0730 [facility] Last Admin: 09/01/23 08:43 Dose: 2.5 mg Guaifenesin (Guaifenesin 100 Mg/5 Ml Liquid) 10 ml PO Q4H PRN PRN Reason: Cough Last Admin: 08/30/23 09:49 Dose: 10 ml Hydroxyzine HCl (Hydroxyzine Hcl 25 Mg Tablet) 25 mg PO Q6H PRN PRN Reason: Anxiety Last Admin: 08/30/23 20:38 Dose: 25 mg Insulin Glargine (Insulin Glargine,Hum.Rec.Anlog 100 Unit/Ml 10 Ml Vial) 30 unit SUBCUT DAILY [facility] Last Admin: 09/01/23 08:41 Dose: 30 unit Insulin Human Lispro (Insulin Lispro 100 Unit/Ml 3 Ml Vial) 0 unit SUBCUT QIDACHS [facility]; Protocol Last Admin: 09/01/23 12:50 Dose: Not Given Lidocaine (Lidocaine 4 % Patch Adh..Patch) 1 patch TRANSDERMA DAILY [facility]; Protocol Last Admin: 09/01/23 08:40 Dose: 1 patch Lidocaine (Lidocaine 4 % Patch Adh..Patch) 1 patch TRANSDERMA DAILY [facility]; Protocol Last Admin: 09/01/23 08:41 Dose: 1 patch Lisinopril (Lisinopril 10 Mg Tablet) 10 mg PO DAILY [facility]; Protocol Last Admin: 08/15/23 08:30 Dose: 10 mg Loperamide HCl (Loperamide Hcl 2 Mg Capsule) 2 mg PO Q6H PRN PRN Reason: loose stool Magnesium Hydroxide (Milk Of Magnesia 30 Ml Oral.Susp) 30 ml PO DAILY PRN PRN Reason: Constipation Melatonin (Melatonin 3 Mg Tablet) 6 mg PO BEDTIME PRN PRN Reason: Insomnia Last Admin: 08/31/23 20:44 Dose: 6 mg Metformin HCl (Metformin Hcl Er 500 Mg Tab.Er.24h) 500 mg PO DAILY [facility] Last Admin: 09/01/23 08:43 Dose: 500 mg Metformin HCl (Metformin Hcl 500 Mg Tablet) 250 mg PO DAILY@1700 [facility] Last Admin: 08/31/23 16:18 Dose: 250 mg Metoprolol Tartrate (Metoprolol Tartrate 25 Mg Tablet) 25 mg PO DAILY [facility]; Protocol Last Admin: 09/01/23 08:42 Dose: 25 mg Nicotine Polacrilex (Nicotine Polacrilex 2 Mg Gum) 2 mg BUCCAL Q2H PRN PRN Reason: Nicotine Cravings Last Admin: 09/01/23 14:38 Dose: 2 mg Omeprazole (Omeprazole 40 Mg Capsule.Dr) 40 mg PO DAILY@0630 [facility] Last Admin: 09/01/23 06:11 Dose: 40 mg Pregabalin (Pregabalin 150 Mg Capsule) 150 mg PO BID [facility] Last Admin: 09/01/23 08:43 Dose: 150 mg Risperidone (Risperidone 1 Mg Tablet) 1 mg PO BID [facility] Last Admin: 09/01/23 08:42 Dose: 1 mg Sumatriptan Succinate (Sumatriptan Succinate 50 Mg Tablet) 50 mg PO DAILY PRN PRN Reason: Migraine Headache Thiamine HCl (Thiamine Hcl 100 Mg Tablet) 100 mg PO DAILY [facility] Last Admin: 09/01/23 08:43 Dose: 100 mg Tramadol HCl (Tramadol Hcl 50 Mg Tablet) 50 mg PO Q6H PRN PRN Reason: Pain, Moderate(Pain Scale 4-6) Last Admin: 08/21/23 21:15 Dose: 50 mg Trazodone HCl (Trazodone Hcl 50 Mg Tablet) 50 mg PO BEDTIME PRN PRN Reason: Insomnia Last Admin: 08/31/23 20:44 Dose: 50 mg Allergies Allergies Allergy/AdvReac Type Severity Reaction Status Date / Time bee pollen Allergy Anaphylaxis Verified 08/12/23 03:20 Assessment & Plan Assessment & Plan (1) Bipolar disorder with psychotic features: Status: Acute Code(s): F31.9 - Bipolar disorder, unspecified (2) Alcohol use disorder: Status: Acute Code(s): F10.90 - Alcohol use, unspecified, uncomplicated Plan The patient is a middle-aged [place] descent female with a past history of schizoaffective disorder bipolar type and dementia who was brought from the community after she was shoplifting at a [employer] and eating raw arroyo, grossly disorganized unable to take care of herself. She was seen by crisis and transferring to this facility for psychiatric stabilization. Plan 08/20. continue tx. On discharge, will d/c lispro. continue lantus. started on metformin ER 500mg po daily. urine culture +gram neg roxana- start ceftin 500mg po BID x 7 days. 08/21 continue tx. 08/22 continue tx. 08/24 continue tx. 08/25: stable. continue current mgmt. 08/26: asking for ativan, says hydroxyzine inadequate. deferred to primary team. otherwise stable, continue current mgmt. wearing TEDs with improvement in B/L LE edema. 08/27 continue tx. clonazepam during admission but will NOT be rx on discharged. 08/28: klonopin changed to [id number] per pt request. continue current mgmt. planning for discharge monday. 08/29: discharge confirmed for next monday. taper klonopin to 0.25 mg BID from 0.5 mg BID in preparation. also will need to DC SSI versus cut it down to BID at discharge. FSBS in the 150-200 range, generally. 08/30: Continue tx. 08/31: increase lyrica from 150 BID to 225 BID for neuropathic pain. taper klonopin. otherwise continue current mgmt. DC monday. Reason for continued inpatient stay Substantial Risk for: inability to function and rapid decompensation Time Spent With Patient Time: Total time managing care of this patient today __25__ minutes.
[2023-09-01] MEDS: metFORMIN HCl 500 MG TABLET 250 MG PO (17:18)
[2023-09-01 20:00] VITALS: BP 105/54; PULSE 89; RESP 16; TEMP 36.4; O2SAT 98
[2023-09-01 20:07] LABS: Glucose, Whole Blood 189 mg/dL (60-115)
[2023-09-01] MEDS: Pregabalin 75 MG CAPSULE 225 MG PO (20:33)
[2023-09-01] MEDS: Melatonin 3 MG TABLET 6 MG PO (20:33)
[2023-09-01] MEDS: traZODone HCL 50 MG TABLET PO (20:34)
[2023-09-01] MEDS: Atorvastatin Calcium 40 MG TABLET PO (20:34)
[2023-09-02] MEDS: Omeprazole 40 MG CAPSULE.DR PO (06:30)
[2023-09-02 06:52] LABS: Glucose, Whole Blood 167 mg/dL (60-115)
[2023-09-02 08:03] VITALS: BP 126/67; PULSE 101; RESP 18; TEMP 36.2; O2SAT 96
[2023-09-02] MEDS: metFORMIN HCl ER 500 MG TAB.ER.24H PO (08:06)
[2023-09-02] MEDS: Folic Acid 1 MG TABLET PO (08:06)
[2023-09-02] MEDS: risperiDONE 1 MG TABLET PO ×2 (08:06→20:56)
[2023-09-02] MEDS: glipiZIDE 5 MG TABLET 2.5 MG PO (08:06)
[2023-09-02] MEDS: Aspirin 81 MG TAB.CHEW PO (08:06)
[2023-09-02] MEDS: Thiamine HCL 100 MG TABLET PO (08:06)
[2023-09-02] MEDS: hydrOXYzine HCL 25 MG TABLET PO (08:06)
[2023-09-02] MEDS: Pregabalin 75 MG CAPSULE 225 MG PO ×2 (08:06→20:57)
[2023-09-02 08:07] VITALS: BP 126/67; PULSE 101
[2023-09-02] MEDS: Cyanocobalamin (Vitamin B-12) 500 MCG TABLET PO (08:07)
[2023-09-02] MEDS: Acetaminophen 325 MG TABLET 975 MG PO ×3 (08:07→20:56)
[2023-09-02] MEDS: Metoprolol Tartrate 25 MG TABLET PO (08:07)
[2023-09-02] MEDS: traMADoL HCL 50 MG TABLET PO ×2 (08:07→14:13)
[2023-09-02] MEDS: Nicotine Polacrilex 2 MG GUM BUCCAL ×3 (08:07→17:11)
[2023-09-02] MEDS: guaiFENesin 100 MG/5 ML LIQUID 10 ML PO (08:08)
[2023-09-02] MEDS: Lidocaine 4 % Patch ADH..PATCH 1 PATCH TRANSDERMA ×2 (08:08)
[2023-09-02] MEDS: Insulin Lispro 100 UNIT/ML 3 ML VIAL SUBCUT ×2 (08:09→16:50)
[2023-09-02] MEDS: Insulin Glargine,Hum.rec.anlog 100 UNIT/ML 10 ML VIAL 30 UNIT SUBCUT (08:09)
--- NOTE | 2023-09-02 10:18 | HO.PSYCHPN ---
Subjective Subjective Date of Service: 09/02/23 Reason For Visit: Psychosis Subjective Notes: Conditional Voluntary Interim History: Patient has been active in the milieu complains of pain has been started on Lyrica she is scheduled shortly for discharge. Mental Status Exam Mental Status Exam Patient Appearance: Appropriate Patient Orientation: Person and Situation Level of Consciousness: Awake and Appropriate Patient Behavior: Guarded and Passive Mood Description: Withdrawn Affect Description: Calm, Appropriate and Relaxed Patient Cognition Impaired: Yes Ability to Follow Directions: Good Speech Pattern: Clear Diagnostics Vital Signs (24Hr): Vital Signs - 24 hr 09/01/23 20:00 09/02/23 08:03 09/02/23 08:07 Temperature 97.6 F 97.1 F Pulse Rate 89 101 H 101 H Respiratory Rate 16 18 Blood Pressure 105/54 L 126/67 126/67 Pulse Oximetry 98 96 Oxygen Delivery Method Room Air Room Air BMI result Body Mass Index 33.6 Labs 08/12/23 04:13 08/30/23 08:21 Labs: Laboratory Results - last 48 hr 08/31/23 08/31/23 08/31/23 11:26 16:02 19:47 POC Glucose 130 H 146 H 180 H 09/01/23 09/01/23 09/01/23 06:03 11:36 16:36 POC Glucose 154 H 112 119 H 09/01/23 09/02/23 19:54 06:32 POC Glucose 189 H 167 H Medications Medications Current Medications Acetaminophen (Acetaminophen 325 Mg Tablet) 975 mg PO TID [facility] Last Admin: 09/02/23 08:07 Dose: 975 mg Al Hydroxide/Mg Hydroxide (Magnesium Hydrox/Alum Hydrox 30 Ml Oral.Susp) 30 ml PO Q6H PRN PRN Reason: Heartburn/Nausea Albuterol Sulfate (Albuterol Sulfate 90 Mcg 8 Gm Inhaler) 1 puff INHALE RQID PRN PRN Reason: wheezing Aspirin (Aspirin 81 Mg Tab.Chew) 81 mg PO DAILY [facility] Last Admin: 09/02/23 08:06 Dose: 81 mg Atorvastatin Calcium (Atorvastatin Calcium 40 Mg Tablet) 40 mg PO BEDTIME [facility] Last Admin: 09/01/23 20:34 Dose: 40 mg Clonazepam (Clonazepam 0.5 Mg Tablet) 0.25 mg PO DAILY@1400 [facility] Cyanocobalamin (Cyanocobalamin (Vitamin B-12) 500 Mcg Tablet) 500 mcg PO DAILY [facility] Last Admin: 09/02/23 08:07 Dose: 500 mcg Folic Acid (Folic Acid 1 Mg Tablet) 1 mg PO DAILY [facility] Last Admin: 09/02/23 08:06 Dose: 1 mg Glipizide (Glipizide 5 Mg Tablet) 2.5 mg PO DAILY@0730 [facility] Last Admin: 09/02/23 08:06 Dose: 2.5 mg Guaifenesin (Guaifenesin 100 Mg/5 Ml Liquid) 10 ml PO Q4H PRN PRN Reason: Cough Last Admin: 09/02/23 08:08 Dose: 10 ml Hydroxyzine HCl (Hydroxyzine Hcl 25 Mg Tablet) 25 mg PO Q6H PRN PRN Reason: Anxiety Last Admin: 09/02/23 08:06 Dose: 25 mg Insulin Glargine (Insulin Glargine,Hum.Rec.Anlog 100 Unit/Ml 10 Ml Vial) 30 unit SUBCUT DAILY [facility] Last Admin: 09/02/23 08:09 Dose: 30 unit Insulin Human Lispro (Insulin Lispro 100 Unit/Ml 3 Ml Vial) 0 unit SUBCUT BID@0800,1700 [facility]; Protocol Last Admin: 09/01/23 18:32 Dose: Not Given Insulin Human Lispro (Insulin Lispro 100 Unit/Ml 3 Ml Vial) 0 unit SUBCUT BID@0800,1700 [facility]; Protocol Last Admin: 09/02/23 08:09 Dose: 2 unit Lidocaine (Lidocaine 4 % Patch Adh..Patch) 1 patch TRANSDERMA DAILY [facility]; Protocol Last Admin: 09/02/23 08:08 Dose: 1 patch Lidocaine (Lidocaine 4 % Patch Adh..Patch) 1 patch TRANSDERMA DAILY [facility]; Protocol Last Admin: 09/02/23 08:08 Dose: 1 patch Lisinopril (Lisinopril 10 Mg Tablet) 10 mg PO DAILY [facility]; Protocol Last Admin: 08/15/23 08:30 Dose: 10 mg Loperamide HCl (Loperamide Hcl 2 Mg Capsule) 2 mg PO Q6H PRN PRN Reason: loose stool Magnesium Hydroxide (Milk Of Magnesia 30 Ml Oral.Susp) 30 ml PO DAILY PRN PRN Reason: Constipation Melatonin (Melatonin 3 Mg Tablet) 6 mg PO BEDTIME PRN PRN Reason: Insomnia Last Admin: 09/01/23 20:33 Dose: 6 mg Metformin HCl (Metformin Hcl Er 500 Mg Tab.Er.24h) 500 mg PO DAILY [facility] Last Admin: 09/02/23 08:06 Dose: 500 mg Metformin HCl (Metformin Hcl 500 Mg Tablet) 250 mg PO DAILY@1700 [facility] Last Admin: 09/01/23 17:18 Dose: 250 mg Metoprolol Tartrate (Metoprolol Tartrate 25 Mg Tablet) 25 mg PO DAILY [facility]; Protocol Last Admin: 09/02/23 08:07 Dose: 25 mg Nicotine Polacrilex (Nicotine Polacrilex 2 Mg Gum) 2 mg BUCCAL Q2H PRN PRN Reason: Nicotine Cravings Last Admin: 09/02/23 08:07 Dose: 2 mg Omeprazole (Omeprazole 40 Mg Capsule.Dr) 40 mg PO DAILY@0630 [facility] Last Admin: 09/02/23 06:30 Dose: 40 mg Pregabalin (Pregabalin 75 Mg Capsule) 225 mg PO BID [facility] Last Admin: 09/02/23 08:06 Dose: 225 mg Risperidone (Risperidone 1 Mg Tablet) 1 mg PO BID [facility] Last Admin: 09/02/23 08:06 Dose: 1 mg Sumatriptan Succinate (Sumatriptan Succinate 50 Mg Tablet) 50 mg PO DAILY PRN PRN Reason: Migraine Headache Thiamine HCl (Thiamine Hcl 100 Mg Tablet) 100 mg PO DAILY [facility] Last Admin: 09/02/23 08:06 Dose: 100 mg Tramadol HCl (Tramadol Hcl 50 Mg Tablet) 50 mg PO Q6H PRN PRN Reason: Pain, Moderate(Pain Scale 4-6) Last Admin: 09/02/23 08:07 Dose: 50 mg Trazodone HCl (Trazodone Hcl 50 Mg Tablet) 50 mg PO BEDTIME PRN PRN Reason: Insomnia Last Admin: 09/01/23 20:34 Dose: 50 mg Allergies Allergies Allergy/AdvReac Type Severity Reaction Status Date / Time bee pollen Allergy Anaphylaxis Verified 08/12/23 03:20 Assessment & Plan Assessment & Plan (1) Bipolar disorder with psychotic features: Status: Acute Code(s): F31.9 - Bipolar disorder, unspecified (2) Alcohol use disorder: Status: Acute Code(s): F10.90 - Alcohol use, unspecified, uncomplicated Plan The patient is a middle-aged [place] descent female with a past history of schizoaffective disorder bipolar type and dementia who was brought from the community after she was shoplifting at a [employer] and eating raw arroyo, grossly disorganized unable to take care of herself. She was seen by crisis and transferring to this facility for psychiatric stabilization. Plan 08/20. continue tx. On discharge, will d/c lispro. continue lantus. started on metformin ER 500mg po daily. urine culture +gram neg roxana- start ceftin 500mg po BID x 7 days. 08/21 continue tx. 08/22 continue tx. 08/24 continue tx. 08/25: stable. continue current mgmt. 08/26: asking for ativan, says hydroxyzine inadequate. deferred to primary team. otherwise stable, continue current mgmt. wearing TEDs with improvement in B/L LE edema. 08/27 continue tx. clonazepam during admission but will NOT be rx on discharged. 08/28: klonopin changed to [id number] per pt request. continue current mgmt. planning for discharge monday. 08/29: discharge confirmed for next monday. taper klonopin to 0.25 mg BID from 0.5 mg BID in preparation. also will need to DC SSI versus cut it down to BID at discharge. FSBS in the 150-200 range, generally. 08/30: Continue tx. 08/31: increase lyrica from 150 BID to 225 BID for neuropathic pain. taper klonopin. otherwise continue current mgmt. DC monday. 09/02/2023 Continue plan of care discharge planning Lyrica started Patient educated on: diagnosis and medication risk/benefits Informed Consent: further education needed Reason for continued inpatient stay Substantial Risk for: inability to function and rapid decompensation Time Spent With Patient Time: Total time managing care of this patient today ____ minutes.
[2023-09-02] MEDS: clonazePAM 0.5 MG TABLET 0.25 MG PO (13:19)
[2023-09-02 16:18] LABS: Glucose, Whole Blood 182 mg/dL (60-115)
[2023-09-02] MEDS: metFORMIN HCl 500 MG TABLET 250 MG PO (16:48)
[2023-09-02 20:00] VITALS: BP 101/59; PULSE 78; RESP 16; TEMP 36.3; O2SAT 98
[2023-09-02 20:18] LABS: Glucose, Whole Blood 154 mg/dL (60-115)
[2023-09-02] MEDS: Atorvastatin Calcium 40 MG TABLET PO (20:56)
[2023-09-02] MEDS: Melatonin 3 MG TABLET 6 MG PO (20:56)
[2023-09-02] MEDS: traZODone HCL 50 MG TABLET PO (20:57)
[2023-09-03] MEDS: Omeprazole 40 MG CAPSULE.DR PO (06:30)
[2023-09-03 06:53] LABS: Glucose, Whole Blood 125 mg/dL (60-115)
[2023-09-03 07:58] VITALS: BP 106/72; PULSE 98; RESP 16; TEMP 36.6; O2SAT 97
[2023-09-03] MEDS: Thiamine HCL 100 MG TABLET PO (08:15)
[2023-09-03] MEDS: Acetaminophen 325 MG TABLET 975 MG PO ×3 (08:15→20:25)
[2023-09-03] MEDS: Metoprolol Tartrate 25 MG TABLET PO (08:15)
[2023-09-03] MEDS: Folic Acid 1 MG TABLET PO (08:15)
[2023-09-03] MEDS: Cyanocobalamin (Vitamin B-12) 500 MCG TABLET PO (08:16)
[2023-09-03] MEDS: risperiDONE 1 MG TABLET PO ×2 (08:16→20:25)
[2023-09-03] MEDS: glipiZIDE 5 MG TABLET 2.5 MG PO (08:16)
[2023-09-03] MEDS: metFORMIN HCl ER 500 MG TAB.ER.24H PO (08:16)
[2023-09-03] MEDS: Aspirin 81 MG TAB.CHEW PO (08:16)
[2023-09-03] MEDS: Pregabalin 75 MG CAPSULE 225 MG PO ×2 (08:17→20:25)
[2023-09-03] MEDS: Lidocaine 4 % Patch ADH..PATCH 1 PATCH TRANSDERMA ×2 (08:18→08:21)
[2023-09-03] MEDS: Insulin Glargine,Hum.rec.anlog 100 UNIT/ML 10 ML VIAL 30 UNIT SUBCUT (08:21)
[2023-09-03] MEDS: Nicotine Polacrilex 2 MG GUM BUCCAL ×4 (09:24→20:38)
--- NOTE | 2023-09-03 13:05 | P.PNPSI_ITS ---
Subjective Subjective Date of Service: 09/03/23 Reason For Visit: Psychosis Subjective Notes: Conditional Voluntary Interim History: Patient seems generally stable in the milieu some complaints of chronic pain not overly agitated or depressed Medication Compliance: Yes Mental Status Exam Mental Status Exam Patient Appearance: Appropriate Patient Orientation: Person and Situation Level of Consciousness: Awake and Appropriate Patient Behavior: Guarded and Passive Mood Description: Withdrawn Affect Description: Calm, Appropriate and Relaxed Patient Cognition Impaired: Yes Ability to Follow Directions: Good Speech Pattern: Clear Diagnostics Vital Signs (24Hr): Vital Signs - 24 hr 09/02/23 20:00 09/03/23 07:58 Temperature 97.3 F 97.8 F Pulse Rate 78 98 Respiratory Rate 16 16 Blood Pressure 101/59 L 106/72 Pulse Oximetry 98 97 Oxygen Delivery Method Room Air Room Air BMI result Body Mass Index 33.6 Labs 08/12/23 04:13 08/30/23 08:21 Labs: Laboratory Results - last 48 hr 09/01/23 09/01/23 09/02/23 16:36 19:54 06:32 POC Glucose 119 H 189 H 167 H 09/02/23 09/02/23 09/03/23 16:14 19:51 06:32 POC Glucose 182 H 154 H 125 H Medications Medications Current Medications Acetaminophen (Acetaminophen 325 Mg Tablet) 975 mg PO TID [facility] Last Admin: 09/03/23 08:15 Dose: 975 mg Al Hydroxide/Mg Hydroxide (Magnesium Hydrox/Alum Hydrox 30 Ml Oral.Susp) 30 ml PO Q6H PRN PRN Reason: Heartburn/Nausea Albuterol Sulfate (Albuterol Sulfate 90 Mcg 8 Gm Inhaler) 1 puff INHALE RQID PRN PRN Reason: wheezing Aspirin (Aspirin 81 Mg Tab.Chew) 81 mg PO DAILY [facility] Last Admin: 09/03/23 08:16 Dose: 81 mg Atorvastatin Calcium (Atorvastatin Calcium 40 Mg Tablet) 40 mg PO BEDTIME [facility] Last Admin: 09/02/23 20:56 Dose: 40 mg Cyanocobalamin (Cyanocobalamin (Vitamin B-12) 500 Mcg Tablet) 500 mcg PO DAILY [facility] Last Admin: 09/03/23 08:16 Dose: 500 mcg Folic Acid (Folic Acid 1 Mg Tablet) 1 mg PO DAILY [facility] Last Admin: 09/03/23 08:15 Dose: 1 mg Glipizide (Glipizide 5 Mg Tablet) 2.5 mg PO DAILY@0730 [facility] Last Admin: 09/03/23 08:16 Dose: 2.5 mg Guaifenesin (Guaifenesin 100 Mg/5 Ml Liquid) 10 ml PO Q4H PRN PRN Reason: Cough Last Admin: 09/02/23 08:08 Dose: 10 ml Hydroxyzine HCl (Hydroxyzine Hcl 25 Mg Tablet) 25 mg PO Q6H PRN PRN Reason: Anxiety Last Admin: 09/02/23 08:06 Dose: 25 mg Insulin Glargine (Insulin Glargine,Hum.Rec.Anlog 100 Unit/Ml 10 Ml Vial) 30 unit SUBCUT DAILY [facility] Last Admin: 09/03/23 08:21 Dose: 30 unit Insulin Human Lispro (Insulin Lispro 100 Unit/Ml 3 Ml Vial) 0 unit SUBCUT BID@0800,1700 [facility]; Protocol Last Admin: 09/01/23 18:32 Dose: Not Given Insulin Human Lispro (Insulin Lispro 100 Unit/Ml 3 Ml Vial) 0 unit SUBCUT BID@0800,1700 [facility]; Protocol Last Admin: 09/03/23 07:17 Dose: Not Given Lidocaine (Lidocaine 4 % Patch Adh..Patch) 1 patch TRANSDERMA DAILY [facility]; Protocol Last Admin: 09/03/23 08:21 Dose: 1 patch Lidocaine (Lidocaine 4 % Patch Adh..Patch) 1 patch TRANSDERMA DAILY [facility]; Protocol Last Admin: 09/03/23 08:18 Dose: 1 patch Lisinopril (Lisinopril 10 Mg Tablet) 10 mg PO DAILY [facility]; Protocol Last Admin: 08/15/23 08:30 Dose: 10 mg Loperamide HCl (Loperamide Hcl 2 Mg Capsule) 2 mg PO Q6H PRN PRN Reason: loose stool Magnesium Hydroxide (Milk Of Magnesia 30 Ml Oral.Susp) 30 ml PO DAILY PRN PRN Reason: Constipation Melatonin (Melatonin 3 Mg Tablet) 6 mg PO BEDTIME PRN PRN Reason: Insomnia Last Admin: 09/02/23 20:56 Dose: 6 mg Metformin HCl (Metformin Hcl Er 500 Mg Tab.Er.24h) 500 mg PO DAILY [facility] Last Admin: 09/03/23 08:16 Dose: 500 mg Metformin HCl (Metformin Hcl 500 Mg Tablet) 250 mg PO DAILY@1700 [facility] Last Admin: 09/02/23 16:48 Dose: 250 mg Metoprolol Tartrate (Metoprolol Tartrate 25 Mg Tablet) 25 mg PO DAILY [facility]; Protocol Last Admin: 09/03/23 08:15 Dose: 25 mg Nicotine Polacrilex (Nicotine Polacrilex 2 Mg Gum) 2 mg BUCCAL Q2H PRN PRN Reason: Nicotine Cravings Last Admin: 09/03/23 09:24 Dose: 2 mg Omeprazole (Omeprazole 40 Mg Capsule.Dr) 40 mg PO DAILY@0630 [facility] Last Admin: 09/03/23 06:30 Dose: 40 mg Pregabalin (Pregabalin 75 Mg Capsule) 225 mg PO BID [facility] Last Admin: 09/03/23 08:17 Dose: 225 mg Risperidone (Risperidone 1 Mg Tablet) 1 mg PO BID [facility] Last Admin: 09/03/23 08:16 Dose: 1 mg Sumatriptan Succinate (Sumatriptan Succinate 50 Mg Tablet) 50 mg PO DAILY PRN PRN Reason: Migraine Headache Thiamine HCl (Thiamine Hcl 100 Mg Tablet) 100 mg PO DAILY [facility] Last Admin: 09/03/23 08:15 Dose: 100 mg Tramadol HCl (Tramadol Hcl 50 Mg Tablet) 50 mg PO Q6H PRN PRN Reason: Pain, Moderate(Pain Scale 4-6) Last Admin: 09/02/23 14:13 Dose: 50 mg Trazodone HCl (Trazodone Hcl 50 Mg Tablet) 50 mg PO BEDTIME PRN PRN Reason: Insomnia Last Admin: 09/02/23 20:57 Dose: 50 mg Allergies Allergies Allergy/AdvReac Type Severity Reaction Status Date / Time bee pollen Allergy Anaphylaxis Verified 08/12/23 03:20 Assessment & Plan Assessment & Plan (1) Bipolar disorder with psychotic features: Status: Acute Code(s): F31.9 - Bipolar disorder, unspecified (2) Alcohol use disorder: Status: Acute Code(s): F10.90 - Alcohol use, unspecified, uncomplicated (3) Diabetes: Status: Acute Code(s): E11.9 - Type 2 diabetes mellitus without complications Plan The patient is a middle-aged [place] descent female with a past history of schizoaffective disorder bipolar type and dementia who was brought from the community after she was shoplifting at a [employer] and eating raw arroyo, grossly disorganized unable to take care of herself. She was seen by crisis and transferring to this facility for psychiatric stabilization. Plan 08/20. continue tx. On discharge, will d/c lispro. continue lantus. started on metformin ER 500mg po daily. urine culture +gram neg roxana- start ceftin 500mg po BID x 7 days. 08/21 continue tx. 08/22 continue tx. 08/24 continue tx. 08/25: stable. continue current mgmt. 08/26: asking for ativan, says hydroxyzine inadequate. deferred to primary team. otherwise stable, continue current mgmt. wearing TEDs with improvement in B/L LE edema. 08/27 continue tx. clonazepam during admission but will NOT be rx on discharged. 08/28: klonopin changed to [id number] per pt request. continue current mgmt. planning for discharge monday. 08/29: discharge confirmed for next monday. taper klonopin to 0.25 mg BID from 0.5 mg BID in preparation. also will need to DC SSI versus cut it down to BID at discharge. FSBS in the 150-200 range, generally. 08/30: Continue tx. 08/31: increase lyrica from 150 BID to 225 BID for neuropathic pain. taper klonopin. otherwise continue current mgmt. DC monday. 09/02/2023 09/03/2023 Patient increasingly stable discharge in a.m. Continue plan of care discharge planning Lyrica started Reason for continued inpatient stay Substantial Risk for: inability to function and rapid decompensation Time Spent With Patient Time: Total time managing care of this patient today ____ minutes.
[2023-09-03] MEDS: traMADoL HCL 50 MG TABLET PO ×2 (14:13→20:38)
[2023-09-03] MEDS: hydrOXYzine HCL 25 MG TABLET PO (15:29)
[2023-09-03 16:27] LABS: Glucose, Whole Blood 208 mg/dL (60-115)
[2023-09-03] MEDS: metFORMIN HCl 500 MG TABLET 250 MG PO (17:30)
[2023-09-03] MEDS: Insulin Lispro 100 UNIT/ML 3 ML VIAL SUBCUT (17:30)
[2023-09-03 20:00] VITALS: BP 98/50; PULSE 89; RESP 16; TEMP 36.4; O2SAT 97
[2023-09-03] MEDS: Atorvastatin Calcium 40 MG TABLET PO (20:24)
[2023-09-03 20:36] LABS: Glucose, Whole Blood 103 mg/dL (60-115)
[2023-09-03] MEDS: traZODone HCL 50 MG TABLET PO (20:38)
--- NOTE | 2023-09-03 21:20 | PM.PSYDC ---
DS: Providers Provider Date of Service: 09/04/23 Date of admission: 08/14/23 13:40 Primary care physician: Unknown Physician Consults: 08/16/23 17:15 Consult to Hospitalist Routine Comment: Consulting Provider: Hospitalist Reason For Exam: uncontrolled BS DS: Diagnosis Discharge Diagnosis (1) Bipolar disorder with psychotic features: Status: Acute (2) Alcohol use disorder: Status: Acute DS: Medications Discharge Medications Home Medications: Previous Rx's ?Medication ?Instructions ?Recorded acetaminophen 325 mg tablet 975 mg (3 x 325 mg) PO TID 30 days 09/03/23 #270 tabs albuterol sulfate 90 mcg/actuation 1 inh inhalation QID PRN wheezing 09/03/23 aerosol inhaler #6.7 grams alcohol swabs (Alcohol Prep Pads) 1 pad topical QID PRN DM care 09/03/23 days #100 ea aspirin 81 mg chewable tablet 81 mg PO DAILY 30 days #30 tabs 09/03/23 atorvastatin 40 mg tablet 40 mg PO BEDTIME 30 days #30 tabs 09/03/23 blood sugar diagnostic (Accu-Chek #100 ea 09/03/23 Guide test strips) blood-glucose meter (Accu-Chek #1 ea 09/03/23 Guide Glucose Meter) cyanocobalamin (vitamin B-12) 500 500 mcg PO DAILY 30 days #30 tabs 09/03/23 mcg tablet folic acid 1 mg tablet 1 mg PO DAILY 30 days #30 tabs 09/03/23 glipizide 5 mg tablet 2.5 mg (1/2 x 5 mg) PO DAILY@72909/03/23 30 days #15 tabs guaifenesin 100 mg/5 mL oral liquid 100 mg (5 mL) PO Q4H PRN Cough 09/03/23 days #60 mL hydroxyzine HCl 25 mg tablet 25 mg PO Q6H PRN Anxiety 30 days 09/03/23 #120 tabs insulin glargine 100 unit/mL (3 30 unit (0.3 mL) subcut DAILY 09/03/23 mL) subcutaneous pen days #9 mL insulin glargine 100 unit/mL 30 unit (0.3 mL) subcut DAILY 09/03/23 subcutaneous solution (Lantus days #9 mL U-100 Insulin) insulin lispro 100 unit/mL 1 sliding scale dose subcut 09/03/23 subcutaneous pen (Admelog SoloStar USEASDIRECTD 30 days #15 mL U-100 Insulin lispro) lancets 28 gauge (FreeStyle #100 ea 09/03/23 Lancets) lidocaine 4 % topical patch 2 patch transdermal DAILY 30 days 09/03/23 (Lidocaine Pain Relief) #60 ea melatonin 3 mg tablet 6 mg (2 x 3 mg) PO BEDTIME PRN 09/03/23 Insomnia 30 days #60 tabs metformin 500 mg tablet 250 mg (1/2 x 500 mg) PO 09/03/23 DAILY@1700 30 days #15 tabs metformin 500 mg tablet,extended 500 mg PO DAILY 30 days #30 tabs 09/03/23 release 24 hr metoprolol tartrate 25 mg tablet 25 mg PO DAILY 30 days #30 tabs 09/03/23 nicotine (polacrilex) 2 mg gum 2 mg buccal Q2H PRN Nicotine 09/03/23 Cravings 30 days #90 ea omeprazole 40 mg capsule,delayed 40 mg PO DAILY@0630 30 days #30 09/03/23 release caps pen needle, diabetic 31 gauge x #100 ea 09/03/23 3/16 pregabalin 75 mg capsule (Lyrica) 225 mg (3 x 75 mg) PO BID 30 days 09/03/23 #180 caps risperidone 1 mg tablet 1 mg PO BID 30 days #60 tabs 09/03/23 sumatriptan succinate 50 mg tablet 50 mg PO DAILY PRN Migraine 09/03/23 Headache 30 days #10 tabs thiamine mononitrate (vit B1) 100 100 mg PO DAILY 30 days #30 tabs 09/03/23 mg tablet tramadol 50 mg tablet 50 mg PO Q6H PRN Pain, 09/03/23 Moderate(Pain Scale 4-6) 30 days #120 tabs trazodone 50 mg tablet 50 mg PO BEDTIME PRN Insomnia 30 09/03/23 days #30 tabs Data Data Completed and Pending Completed studies during hospitalization [Text1]: 08/28/23 08/28/23 08/28/23 06:27 11:23 15:56 Hold Purple Top Creatinine Estim Creat Clear Calc Estimated GFR POC Glucose 189 H 165 H 107 08/28/23 08/29/23 08/29/23 20:02 06:29 11:14 Hold Purple Top Creatinine Estim Creat Clear Calc Estimated GFR POC Glucose 152 H 179 H 175 H 08/29/23 08/29/23 08/30/23 16:32 20:00 06:30 Hold Purple Top Creatinine Estim Creat Clear Calc Estimated GFR POC Glucose 143 H 175 H 173 H 08/30/23 08/30/23 08/30/23 08:21 11:08 16:08 Hold Purple Top SEE NOTE Creatinine 0.74 Estim Creat Clear Calc 79.8 Estimated GFR > 60 POC Glucose 195 H 163 H 08/30/23 08/31/23 08/31/23 20:00 06:36 11:26 Hold Purple Top Creatinine Estim Creat Clear Calc Estimated GFR POC Glucose 110 150 H 130 H 08/31/23 08/31/23 09/01/23 16:02 19:47 06:03 Hold Purple Top Creatinine Estim Creat Clear Calc Estimated GFR POC Glucose 146 H 180 H 154 H 09/01/23 09/01/23 09/01/23 11:36 16:36 19:54 Hold Purple Top Creatinine Estim Creat Clear Calc Estimated GFR POC Glucose 112 119 H 189 H 09/02/23 09/02/23 09/02/23 06:32 16:14 19:51 Hold Purple Top Creatinine Estim Creat Clear Calc Estimated GFR POC Glucose 167 H 182 H 154 H 09/03/23 09/03/23 09/03/23 06:32 16:20 20:32 Hold Purple Top Creatinine Estim Creat Clear Calc Estimated GFR POC Glucose 125 H 208 H 103 08/20/23 17:00 Urine clean catch - Urine jimenez top Urine Culture - Final Escherichia coli 08/12/23 Unknown Urine clean catch - Clean Catch Midstream Urine Culture - Final DS: Summary Time Spent with Patient Time attestation: Total time managing care of this patient today ____ minutes. Discharge Plan Discharge Anticipated Discharge Date/Time: 09/04/23 11:00 Patient Disposition: Xfer Other Discharge Diagnosis: Bipolar Disorder with Psychotic Features Cocaine Use Disorder Alcohol Use Disorder Referrals: [facility] [Other] - 09/04/23 11:30 am (Transfer to [facility] 09/04/23 at 11:30.) [facility] [Other] - 09/05/23 12:00 pm (Your Sequins Stringer from [facility] will contact you by phone. [facility] nurse practitioner Lavonne and community based behavioral health clinician Juliane to meet with you at [facility] 09/05/23 at 12PM) [facility] [Other] - 09/04/23 ([facility] x2 visits a day. ) Gaby Hagen NP [Other] - 09/18/23 4:00 pm (Your next appointment with Gaby is in person in office on 09/18/23 at 4PM.) [facility] [Other] - 1 Week ([facility] will have RN follow up with you at [facility] for nursing assessment for enrollment. ) [facility] [Outside] - 09/15/23 10:30 am (Your follow up appointment has been scheduled with Dr. Lazarus Cota, [facility] at [address] [place] [address] on 09-07-23 at 10:30am.) Discharge Medications: New acetaminophen 325 mg Tablet 975 mg PO TID 30 Days Qty: 270 0RF pregabalin [Lyrica] 75 mg Capsule 225 mg PO BID 30 Days Qty: 180 0RF insulin glargine [Lantus U-100 Insulin] 100 unit/mL Solution 30 unit subcut DAILY 30 Days Qty: 9 0RF tramadol 50 mg Tablet 50 mg PO Q6H PRN (Reason: Pain, Moderate(Pain Scale 4-6)) 30 Days Qty: 120 0RF glipizide 5 mg Tablet 2.5 mg PO DAILY@0730 30 Days Qty: 15 0RF metformin 500 mg Tablet 250 mg PO DAILY@1700 30 Days Qty: 15 0RF lidocaine [Lidocaine Pain Relief] 4 % Adhesive Patch,Medicated 2 patch transdermal DAILY 30 Days Qty: 60 0RF Protocol: Apply to: Apply to: knee metformin 500 mg Tablet Extended Release 24 Hr 500 mg PO DAILY 30 Days Qty: 30 0RF alcohol swabs [Alcohol Prep Pads] Pads, Medicated 1 pad topical QID PRN (Reason: DM care) 30 Days Qty: 100 0RF (DME) Accu-Chek Guide test strips Strip See Rx Instructions .Route Qty: 100 1RF Rx Instructions: As directed (DME) blood-glucose meter [Accu-Chek Guide Glucose Meter] Misc See Rx Instructions .Route Qty: 1 0RF Rx Instructions: As directed (DME) lancets [FreeStyle Lancets] 28 gauge misc See Rx Instructions .Route Qty: 100 1RF Rx Instructions: As directed (DME) pen needle, diabetic 31 gauge x 3/16 needle See Rx Instructions .Route Qty: 100 1RF Rx Instructions: As directed insulin lispro [Admelog SoloStar U-100 Insulin] 100 unit/mL insulin pen 1 sliding scale dose subcut USEASDIRECTD 30 Days Qty: 15 0RF Rx Instructions: for blood glucose below 151, do not give. for blood glucose 151-200, give 2 units. 201-250: 4 units 251-300: 6 units 301-350: 8 units >350: 10 units and call PCP Continued atorvastatin 40 mg Tablet 40 mg PO BEDTIME 30 Days Qty: 30 0RF trazodone 50 mg Tablet 50 mg PO BEDTIME PRN (Reason: Insomnia) 30 Days Qty: 30 0RF nicotine (polacrilex) 2 mg Gum 2 mg buccal Q2H PRN (Reason: Nicotine Cravings) 30 Days Qty: 90 0RF sumatriptan succinate 50 mg tablet 50 mg PO DAILY PRN (Reason: Migraine Headache) 30 Days Qty: 10 0RF melatonin 3 mg Tablet 6 mg PO BEDTIME PRN (Reason: Insomnia) 30 Days Qty: 60 0RF omeprazole 40 mg Capsule,Delayed Release(Dr/Ec) 40 mg PO DAILY@0630 30 Days Qty: 30 0RF guaifenesin 100 mg/5 mL Liquid 100 mg PO Q4H PRN (Reason: Cough) 30 Days Qty: 60 0RF cyanocobalamin (vitamin B-12) 500 mcg tablet 500 mcg PO DAILY 30 Days Qty: 30 0RF aspirin 81 mg Tablet,Chewable 81 mg PO DAILY 30 Days Qty: 30 0RF folic acid 1 mg Tablet 1 mg PO DAILY 30 Days Qty: 30 0RF hydroxyzine HCl 25 mg Tablet 25 mg PO Q6H PRN (Reason: Anxiety) 30 Days Qty: 120 0RF albuterol sulfate 90 mcg/actuation HFA aerosol inhaler 1 inh inhalation QID PRN (Reason: wheezing) Qty: 6.7 0RF risperidone 1 mg tablet 1 mg PO BID 30 Days Qty: 60 0RF metoprolol tartrate 25 mg Tablet 25 mg PO DAILY 30 Days Qty: 30 0RF Protocol: Hold for SBP/HR < HOLD for SBP < : 90 HOLD for HR < : 60 thiamine mononitrate (vit B1) 100 mg Tablet 100 mg PO DAILY 30 Days Qty: 30 0RF Changed insulin glargine 100 unit/mL (3 mL) insulin pen 30 unit subcut DAILY 30 Days Qty: 9 0RF Discontinued meclizine 25 mg tablet 25 mg PO TID PRN (Reason: dizziness) Qty: 14 0RF acetaminophen 325 mg Tablet 650 mg PO Q6H PRN (Reason: Headache/Pain Mild Scale (1-3)) 30 Days Qty: 60 0RF hydrochlorothiazide 12.5 mg Tablet 12.5 mg PO DAILY 30 Days Qty: 30 0RF Protocol: Hold for SBP< HOLD for SBP < : 90 clonazepam 0.5 mg Tablet 0.5 mg PO BID Qty: 60 0RF lisinopril 10 mg Tablet 10 mg PO DAILY Qty: 30 0RF Protocol: Hold for SBP< HOLD for SBP < : 90 insulin lispro [Admelog U-100 Insulin lispro] 100 unit/mL Solution See Protocol subcut QIDACHS Qty: 10 0RF Protocol: Insulin Correction Scale Less than or equal to 110 ---- Give (units): 0 111 to 150 Give (units): 0 151 to 200 Give (units): 2 201 to 250 Give (units): 4 251 to 300 Give (units): 6 301 to 350 Give (units): 8 Greater than 350 Give (units): 10 Call MD if Blood Glucose > : 350 diclofenac sodium 1 % gel 4 g topical QID PRN (Reason: pain) 30 Days Qty: 5 0RF loperamide [Imodium A-D] 2 mg tablet 2 mg PO Q6H PRN (Reason: loose stool) Qty: 14 0RF gabapentin 400 mg capsule 400 mg PO TID amlodipine 5 mg tablet 5 mg PO DAILY glimepiride 1 mg tablet 1 mg PO QAM pregabalin 100 mg capsule 100 mg PO BID Discharge Orders: Discharge Order (Routine); Ordered 09/04/23 Ordered By: Vladimir Roberto Diet: Diabetic diet Activity on Discharge: As tolerated Stand Alone Forms: Patient Portal Discharge page Print Language: Persian Care Plan Goals: remain safe, stable, and sober in the outpatient treatment setting Health Concerns: Diabetes Mellitus Hypertension Plan of Treatment: take medications as prescribed, attend appointments as scheduled Assessment: not at imminent risk of harm to self or others
[2023-09-04] MEDS: Omeprazole 40 MG CAPSULE.DR PO (06:28)
[2023-09-04 06:52] LABS: Glucose, Whole Blood 102 mg/dL (60-115)
[2023-09-04 08:00] VITALS: BP 101/64; PULSE 108; RESP 18; TEMP 36.8; O2SAT 98
[2023-09-04] MEDS: risperiDONE 1 MG TABLET PO (08:43)
[2023-09-04] MEDS: Cyanocobalamin (Vitamin B-12) 500 MCG TABLET PO (08:43)
[2023-09-04] MEDS: metFORMIN HCl ER 500 MG TAB.ER.24H PO (08:43)
[2023-09-04] MEDS: Pregabalin 75 MG CAPSULE 225 MG PO (08:43)
[2023-09-04] MEDS: Thiamine HCL 100 MG TABLET PO (08:43)
[2023-09-04] MEDS: Aspirin 81 MG TAB.CHEW PO (08:43)
[2023-09-04] MEDS: Acetaminophen 325 MG TABLET 975 MG PO (08:43)
[2023-09-04] MEDS: Metoprolol Tartrate 25 MG TABLET PO (08:43)
[2023-09-04] MEDS: Insulin Glargine,Hum.rec.anlog 100 UNIT/ML 10 ML VIAL 30 UNIT SUBCUT (08:44)
[2023-09-04] MEDS: Folic Acid 1 MG TABLET PO (08:44)
[2023-09-04] MEDS: glipiZIDE 5 MG TABLET 2.5 MG PO (08:44)
[2023-09-04] MEDS: Lidocaine 4 % Patch ADH..PATCH 1 PATCH TRANSDERMA ×2 (08:44→08:45)
[2023-09-04] MEDS: hydrOXYzine HCL 25 MG TABLET PO (09:00)
[2023-09-04] MEDS: traMADoL HCL 50 MG TABLET PO (09:00)
[2023-09-04] MEDS: Nicotine Polacrilex 2 MG GUM BUCCAL (09:00)
--- NOTE | 2023-09-04 09:10 | P.DS_ITS ---
DS: Providers Provider Date of Service: 09/04/23 Date of admission: 08/14/23 13:40 Primary care physician: Unknown Physician Consults: 08/16/23 17:15 Consult to Hospitalist Routine Comment: Consulting Provider: Hospitalist Reason For Exam: uncontrolled BS DS: Diagnosis Discharge Diagnosis (1) Bipolar disorder with psychotic features: Status: Acute (2) Alcohol use disorder: Status: Acute (3) Diabetes: Status: Acute DS: Medications Discharge Medications Home Medications: Previous Rx's ?Medication ?Instructions ?Recorded acetaminophen 325 mg tablet 975 mg (3 x 325 mg) PO TID 30 days 09/03/23 #270 tabs albuterol sulfate 90 mcg/actuation 1 inh inhalation QID PRN wheezing 09/03/23 aerosol inhaler #6.7 grams alcohol swabs (Alcohol Prep Pads) 1 pad topical QID PRN DM care 09/03/23 days #100 ea aspirin 81 mg chewable tablet 81 mg PO DAILY 30 days #30 tabs 09/03/23 atorvastatin 40 mg tablet 40 mg PO BEDTIME 30 days #30 tabs 09/03/23 blood sugar diagnostic (Accu-Chek #100 ea 09/03/23 Guide test strips) blood-glucose meter (Accu-Chek #1 ea 09/03/23 Guide Glucose Meter) cyanocobalamin (vitamin B-12) 500 500 mcg PO DAILY 30 days #30 tabs 09/03/23 mcg tablet folic acid 1 mg tablet 1 mg PO DAILY 30 days #30 tabs 09/03/23 glipizide 5 mg tablet 2.5 mg (1/2 x 5 mg) PO DAILY@72909/03/23 30 days #15 tabs guaifenesin 100 mg/5 mL oral liquid 100 mg (5 mL) PO Q4H PRN Cough 09/03/23 days #60 mL hydroxyzine HCl 25 mg tablet 25 mg PO Q6H PRN Anxiety 30 days 09/03/23 #120 tabs insulin glargine 100 unit/mL (3 30 unit (0.3 mL) subcut DAILY 09/03/23 mL) subcutaneous pen days #9 mL insulin glargine 100 unit/mL 30 unit (0.3 mL) subcut DAILY 09/03/23 subcutaneous solution (Lantus days #9 mL U-100 Insulin) insulin lispro 100 unit/mL 1 sliding scale dose subcut 09/03/23 subcutaneous pen (Admelog SoloStar USEASDIRECTD 30 days #15 mL U-100 Insulin lispro) lancets 28 gauge (FreeStyle #100 ea 09/03/23 Lancets) lidocaine 4 % topical patch 2 patch transdermal DAILY 30 days 09/03/23 (Lidocaine Pain Relief) #60 ea melatonin 3 mg tablet 6 mg (2 x 3 mg) PO BEDTIME PRN 09/03/23 Insomnia 30 days #60 tabs metformin 500 mg tablet 250 mg (1/2 x 500 mg) PO 09/03/23 DAILY@1700 30 days #15 tabs metformin 500 mg tablet,extended 500 mg PO DAILY 30 days #30 tabs 09/03/23 release 24 hr metoprolol tartrate 25 mg tablet 25 mg PO DAILY 30 days #30 tabs 09/03/23 nicotine (polacrilex) 2 mg gum 2 mg buccal Q2H PRN Nicotine 09/03/23 Cravings 30 days #90 ea omeprazole 40 mg capsule,delayed 40 mg PO DAILY@0630 30 days #30 09/03/23 release caps pen needle, diabetic 31 gauge x #100 ea 09/03/23 3/16 pregabalin 75 mg capsule (Lyrica) 225 mg (3 x 75 mg) PO BID 30 days 09/03/23 #180 caps risperidone 1 mg tablet 1 mg PO BID 30 days #60 tabs 09/03/23 sumatriptan succinate 50 mg tablet 50 mg PO DAILY PRN Migraine 09/03/23 Headache 30 days #10 tabs thiamine mononitrate (vit B1) 100 100 mg PO DAILY 30 days #30 tabs 09/03/23 mg tablet tramadol 50 mg tablet 50 mg PO Q6H PRN Pain, 09/03/23 Moderate(Pain Scale 4-6) 30 days #120 tabs trazodone 50 mg tablet 50 mg PO BEDTIME PRN Insomnia 30 09/03/23 days #30 tabs Mental Status Exam Mental Status Exam Narrative: no SI/HI Patient Appearance: Appropriate Patient Orientation: Person and Situation Level of Consciousness: Awake and Appropriate Patient Behavior: Guarded and Passive Mood Description: Withdrawn Affect Description: Calm, Appropriate and Relaxed Patient Cognition Impaired: Yes Ability to Follow Directions: Good Speech Pattern: Clear Data Data Completed and Pending Completed studies during hospitalization [Text1]: 08/28/23 08/28/23 08/28/23 11:23 15:56 20:02 Hold Purple Top Creatinine Estim Creat Clear Calc Estimated GFR POC Glucose 165 H 107 152 H 08/29/23 08/29/23 08/29/23 06:29 11:14 16:32 Hold Purple Top Creatinine Estim Creat Clear Calc Estimated GFR POC Glucose 179 H 175 H 143 H 08/29/23 08/30/23 08/30/23 20:00 06:30 08:21 Hold Purple Top SEE NOTE Creatinine 0.74 Estim Creat Clear Calc 79.8 Estimated GFR > 60 POC Glucose 175 H 173 H 08/30/23 08/30/23 08/30/23 11:08 16:08 20:00 Hold Purple Top Creatinine Estim Creat Clear Calc Estimated GFR POC Glucose 195 H 163 H 110 08/31/23 08/31/23 08/31/23 06:36 11:26 16:02 Hold Purple Top Creatinine Estim Creat Clear Calc Estimated GFR POC Glucose 150 H 130 H 146 H 08/31/23 09/01/23 09/01/23 19:47 06:03 11:36 Hold Purple Top Creatinine Estim Creat Clear Calc Estimated GFR POC Glucose 180 H 154 H 112 09/01/23 09/01/23 09/02/23 16:36 19:54 06:32 Hold Purple Top Creatinine Estim Creat Clear Calc Estimated GFR POC Glucose 119 H 189 H 167 H 09/02/23 09/02/23 09/03/23 16:14 19:51 06:32 Hold Purple Top Creatinine Estim Creat Clear Calc Estimated GFR POC Glucose 182 H 154 H 125 H 09/03/23 09/03/23 09/04/23 16:20 20:32 06:31 Hold Purple Top Creatinine Estim Creat Clear Calc Estimated GFR POC Glucose 208 H 103 102 08/20/23 17:00 Urine clean catch - Urine jimenez top Urine Culture - Final Escherichia coli 08/12/23 Unknown Urine clean catch - Clean Catch Midstream Urine Culture - Final Additional Comments Additional comments: pt requires residential care for Diabetes management DS: Summary Hospital Course Hospital Course: per 08/13 admission note: The patient is a 57-year-old [place] descent and female, with chronic homelessness with a past history of schizoaffective disorder bipolar type and dementia who was brought from the community to the emergency room after seeing her in a [employer] shoplifting. She was very disorganized unable to provide any details and she was seen trying to eat raw arroyo. She was rushed to the emergency room, medically cleared and assessed by the care team and transferring to this facility for psychiatric stabilization. The patient is very well known by this team, she had been admitted several times to different psychiatric units in this hospital and she is chronically homeless with limited support from her family due to erratic behavior in the context of pravin. She stated that she was discharged from the emergency room a few days ago and since then she was unable to follow treatment. She stated that she fell and she was brought here but she was unable to recall the incident at [employer]. On interview, the patient denies active suicidal or homicidal thoughts, she denies auditory hallucinations but she looks very disorganized internally preoccupied, pleasant and cooperative but very confused at times. She was able to contract for safety and she sign CV. She understood Hobbs warning. Past Psychiatric History: Inpt: [facility] 03/13/2023 several admissions in the last year at this facility. Please see the different discharge summaries. OP: none (used to be connected with [facility]) Past trials: ativan, trazodone. pt can't tell any other meds Hx of suicide attempt: she reports as a teen tried to harm herself Medical Evaluation Reviewed: Yes [facility] Medical History Vertigo Diabetes HTN (hypertension) GERD (gastroesophageal reflux disease) Family History: none Social History: Pt has . She has 3 daughter. Substance History: Past history of alcohol use disorder Trauma History: not discussed Precis: The patient is a middle-aged [place] descent female with a past history of schizoaffective disorder bipolar type and dementia who was brought from the community after she was shoplifting at a [employer] store and eating raw arroyo, grossly disorganized unable to take care of herself. She was seen by crisis and transferring to this facility for psychiatric stabilization. Plan 08/14- dc hydrochlorothiazide, amlodipine, continue lisinopril. dc gabapentin 08/20. continue tx. On discharge, will d/c lispro. continue lantus. started on metformin ER 500mg po daily. urine culture +gram neg roxana- start ceftin 500mg po BID x 7 days. 08/21 continue tx. 08/22 continue tx. 08/24 continue tx. 08/25: stable. continue current mgmt. 08/26: asking for ativan, says hydroxyzine inadequate. deferred to primary team. otherwise stable, continue current mgmt. wearing TEDs with improvement in B/L LE edema. 08/27 continue tx. clonazepam during admission but will NOT be rx on discharged. 08/28: klonopin changed to [id number] per pt request. continue current mgmt. planning for discharge monday. 08/29: discharge confirmed for next monday. taper klonopin to 0.25 mg BID from 0.5 mg BID in preparation. also will need to DC SSI versus cut it down to BID at discharge. FSBS in the 150-200 range, generally. 08/30: Continue tx. 08/31: increase lyrica from 150 BID to 225 BID for neuropathic pain. taper klonopin. otherwise continue current mgmt. DC monday. 09/02/2023 09/03/2023 Patient increasingly stable discharge in a.m. Continue plan of care discharge planning Lyrica started 09/03: safe, stable. discharged as per plan. per hospitalist notes: 08/16/23: Patient is a 57 year PMH significant for HTN insulin-dependent type 2 diabetes and schizoaffective disorder who was admitted to [facility] with hospitalist consult placed for diabetes management. Patient has been consistently hyperglycemic while on the unit with last readings being 379, 382, and 353. Will increase Lantus from 15 units daily to 20 units daily. Will continue to monitor POC and titrate treatment from there. Would encouraged pt to follow diabetic diet and diabetic snacking. 08/17: Blood sugars better controlled on increased Lantus, though still hyperglycemic with 2 of last 3 readings above 250. Will increase Lantus from 20 units to 25 units daily. 08/20: Lantus increased to 30 units. Please monitor glucose levels and reach out to hospitlist service if persistently hyperglycemic. Time Spent with Patient Time attestation: Total time managing care of this patient today _45___ minutes. Discharge Plan Discharge Anticipated Discharge Date/Time: 09/04/23 11:00 Patient Disposition: Xfer Other Discharge Diagnosis: Bipolar Disorder with Psychotic Features Cocaine Use Disorder Alcohol Use Disorder Referrals: [facility] [Other] - 09/04/23 11:30 am (Transfer to [facility] 09/04/23 at 11:30.) [facility] [Other] - 09/05/23 12:00 pm (Your E Commerce Developer from [facility] will contact you by phone. [facility] nurse practitioner Lavonne and community based behavioral health clinician Juliane to meet with you at [facility] 09/05/23 at 12PM) [facility] [Other] - 09/04/23 ([facility] to assist with longterm for diabetes management x2 visits a day. ) Gaby Hagen NP [Other] - 09/18/23 4:00 pm (Your next appointment with Gaby is in person in office on 09/18/23 at 4PM.) [facility] [Other] - 1 Week ([facility] will have RN follow up with you at [facility] for nursing assessment for enrollment. ) [facility] [Outside] - 09/15/23 10:30 am (Your follow up appointment has been scheduled with Dr. Lazarus Cota, [facility] at [address] [place] [address] on 09-07-23 at 10:30am.) Discharge Medications: New acetaminophen 325 mg Tablet 975 mg PO TID 30 Days Qty: 270 0RF pregabalin [Lyrica] 75 mg Capsule 225 mg PO BID 30 Days Qty: 180 0RF insulin glargine [Lantus U-100 Insulin] 100 unit/mL Solution 30 unit subcut DAILY 30 Days Qty: 9 0RF tramadol 50 mg Tablet 50 mg PO Q6H PRN (Reason: Pain, Moderate(Pain Scale 4-6)) 30 Days Qty: 120 0RF glipizide 5 mg Tablet 2.5 mg PO DAILY@0730 30 Days Qty: 15 0RF metformin 500 mg Tablet 250 mg PO DAILY@1700 30 Days Qty: 15 0RF lidocaine [Lidocaine Pain Relief] 4 % Adhesive Patch,Medicated 2 patch transdermal DAILY 30 Days Qty: 60 0RF Protocol: Apply to: Apply to: knee metformin 500 mg Tablet Extended Release 24 Hr 500 mg PO DAILY 30 Days Qty: 30 0RF alcohol swabs [Alcohol Prep Pads] Pads, Medicated 1 pad topical QID PRN (Reason: DM care) 30 Days Qty: 100 0RF (DME) Accu-Chek Guide test strips Strip See Rx Instructions .Route Qty: 100 1RF Rx Instructions: As directed (DME) blood-glucose meter [Accu-Chek Guide Glucose Meter] Misc See Rx Instructions .Route Qty: 1 0RF Rx Instructions: As directed (DME) lancets [FreeStyle Lancets] 28 gauge misc See Rx Instructions .Route Qty: 100 1RF Rx Instructions: As directed (DME) pen needle, diabetic 31 gauge x 3/16 needle See Rx Instructions .Route Qty: 100 1RF Rx Instructions: As directed insulin lispro [Admelog SoloStar U-100 Insulin] 100 unit/mL insulin pen 1 sliding scale dose subcut USEASDIRECTD 30 Days Qty: 15 0RF Rx Instructions: for blood glucose below 151, do not give. for blood glucose 151-200, give 2 units. 201-250: 4 units 251-300: 6 units 301-350: 8 units >350: 10 units and call PCP Continued atorvastatin 40 mg Tablet 40 mg PO BEDTIME 30 Days Qty: 30 0RF trazodone 50 mg Tablet 50 mg PO BEDTIME PRN (Reason: Insomnia) 30 Days Qty: 30 0RF nicotine (polacrilex) 2 mg Gum 2 mg buccal Q2H PRN (Reason: Nicotine Cravings) 30 Days Qty: 90 0RF sumatriptan succinate 50 mg tablet 50 mg PO DAILY PRN (Reason: Migraine Headache) 30 Days Qty: 10 0RF melatonin 3 mg Tablet 6 mg PO BEDTIME PRN (Reason: Insomnia) 30 Days Qty: 60 0RF omeprazole 40 mg Capsule,Delayed Release(Dr/Ec) 40 mg PO DAILY@0630 30 Days Qty: 30 0RF guaifenesin 100 mg/5 mL Liquid 100 mg PO Q4H PRN (Reason: Cough) 30 Days Qty: 60 0RF cyanocobalamin (vitamin B-12) 500 mcg tablet 500 mcg PO DAILY 30 Days Qty: 30 0RF aspirin 81 mg Tablet,Chewable 81 mg PO DAILY 30 Days Qty: 30 0RF folic acid 1 mg Tablet 1 mg PO DAILY 30 Days Qty: 30 0RF hydroxyzine HCl 25 mg Tablet 25 mg PO Q6H PRN (Reason: Anxiety) 30 Days Qty: 120 0RF albuterol sulfate 90 mcg/actuation HFA aerosol inhaler 1 inh inhalation QID PRN (Reason: wheezing) Qty: 6.7 0RF risperidone 1 mg tablet 1 mg PO BID 30 Days Qty: 60 0RF metoprolol tartrate 25 mg Tablet 25 mg PO DAILY 30 Days Qty: 30 0RF Protocol: Hold for SBP/HR < HOLD for SBP < : 90 HOLD for HR < : 60 thiamine mononitrate (vit B1) 100 mg Tablet 100 mg PO DAILY 30 Days Qty: 30 0RF Changed insulin glargine 100 unit/mL (3 mL) insulin pen 30 unit subcut DAILY 30 Days Qty: 9 0RF Discontinued meclizine 25 mg tablet 25 mg PO TID PRN (Reason: dizziness) Qty: 14 0RF acetaminophen 325 mg Tablet 650 mg PO Q6H PRN (Reason: Headache/Pain Mild Scale (1-3)) 30 Days Qty: 60 0RF hydrochlorothiazide 12.5 mg Tablet 12.5 mg PO DAILY 30 Days Qty: 30 0RF Protocol: Hold for SBP< HOLD for SBP < : 90 clonazepam 0.5 mg Tablet 0.5 mg PO BID Qty: 60 0RF lisinopril 10 mg Tablet 10 mg PO DAILY Qty: 30 0RF Protocol: Hold for SBP< HOLD for SBP < : 90 insulin lispro [Admelog U-100 Insulin lispro] 100 unit/mL Solution See Protocol subcut QIDACHS Qty: 10 0RF Protocol: Insulin Correction Scale Less than or equal to 110 ---- Give (units): 0 111 to 150 Give (units): 0 151 to 200 Give (units): 2 201 to 250 Give (units): 4 251 to 300 Give (units): 6 301 to 350 Give (units): 8 Greater than 350 Give (units): 10 Call MD if Blood Glucose > : 350 diclofenac sodium 1 % gel 4 g topical QID PRN (Reason: pain) 30 Days Qty: 5 0RF loperamide [Imodium A-D] 2 mg tablet 2 mg PO Q6H PRN (Reason: loose stool) Qty: 14 0RF gabapentin 400 mg capsule 400 mg PO TID amlodipine 5 mg tablet 5 mg PO DAILY glimepiride 1 mg tablet 1 mg PO QAM pregabalin 100 mg capsule 100 mg PO BID Discharge Orders: Discharge Order (Routine); Ordered 09/04/23 Ordered By: Vladimir Roberto Diet: Diabetic diet Activity on Discharge: As tolerated Stand Alone Forms: Patient Portal Discharge page Print Language: Luxembourgish Activity Restrictions/Additional Instructions: pt requires residential for DM management Care Plan Goals: remain safe, stable, and sober in the outpatient treatment setting Health Concerns: Diabetes Mellitus Hypertension Plan of Treatment: take medications as prescribed, attend appointments as scheduled. residential services for Diabetes management. Assessment: not at imminent risk of harm to self or others
== END 2023-09-04 11:35 | disposition other institution (70) | DRG 885 ==
LOC: HO.ED 06:31 → HO.PGERI 08-14 13:49
PROVIDERS: Emergency Medicine; Physician Assistant; Social Worker; Admitting Provider Psychiatry & Neurology Psychiatry; Emergency Provider Internal Medicine; Visit Provider Psychiatry & Neurology Psychiatry
DX: F31.9 Bipolar disorder, unspecified (principal); Z59.02 Unsheltered homelessness; N39.0 Urinary tract infection, site not specified; K21.9 Gastro-esophageal reflux disease without esophagitis; E11.65 Type 2 diabetes mellitus with hyperglycemia; F14.10 Cocaine abuse, uncomplicated; F10.90 Alcohol use, unspecified, uncomplicated; I10 Essential (primary) hypertension; Z91.148 Patient's other noncompliance with medication regimen for other reason; Z87.891 Personal history of nicotine dependence; Z79.82 Long term (current) use of aspirin; Z79.84 Long term (current) use of oral hypoglycemic drugs; Z79.4 Long term (current) use of insulin; Z79.899 Other long term (current) drug therapy
CPT/HCPCS: 36415; 80048; 80053; 80061; 80307; 81001; 82565; 82947; 83690; 84484; 85025; 87086; 87088; 87186; 93005; 99285; S9485

== ENCOUNTER → 2023-08-12 09:20 | Outpatient (BNV) | payer OTHER, SELFPAY | PROVIDERS: Emergency Provider Internal Medicine; Visit Provider Internal Medicine Cardiovascular Disease | DX: R94.31 Abnormal electrocardiogram [ECG] [EKG] (principal) | CPT/HCPCS: 93010 ==

== ENCOUNTER → 2023-08-14 13:40 | Outpatient (BNV) | payer OTHER, SELFPAY | PROVIDERS: Admitting Provider Psychiatry & Neurology Psychiatry; Emergency Provider Internal Medicine; Visit Provider Psychiatry & Neurology Psychiatry | DX: F31.13 Bipolar disorder, current episode manic without psychotic features, severe (principal); F10.90 Alcohol use, unspecified, uncomplicated; E11.9 Type 2 diabetes mellitus without complications | CPT/HCPCS: 90792; 99231; 99232; 99239 ==

== ENCOUNTER → 2023-08-14 13:40 | Outpatient (BNV) | payer OTHER, SELFPAY | PROVIDERS: Admitting Provider Psychiatry & Neurology Psychiatry; Emergency Provider Internal Medicine; Visit Provider Psychiatry & Neurology Psychiatry | DX: F31.13 Bipolar disorder, current episode manic without psychotic features, severe (principal); F10.90 Alcohol use, unspecified, uncomplicated; E11.9 Type 2 diabetes mellitus without complications | CPT/HCPCS: 99231; 99232 ==